=== PATIENT | female | born 1960 | race African-American/Black ===

== ENCOUNTER → 2020-08-06 08:28 | Outpatient (BNVA) | payer MEDICARE, MEDICAID, SELFPAY | PROVIDERS: PCP Internal Medicine Geriatric Medicine; Visit Provider Dietitian, Registered | DX: Z76.89 Persons encountering health services in other specified circumstances (principal) ==

== ENCOUNTER → 2020-10-07 08:32 | Outpatient (BNVA) | payer MEDICARE, MEDICAID, SELFPAY | PROVIDERS: PCP Internal Medicine Geriatric Medicine; Visit Provider Dietitian, Registered | DX: Z76.89 Persons encountering health services in other specified circumstances (principal) ==

== ENCOUNTER 2020-11-11 10:14 | Outpatient (REF) | payer MEDICARE, MEDICAID, SELFPAY ==
--- NOTE | 2020-11-11 | CT_ITS ---
EXAMINATION: CT CHEST WITHOUT CONTRAST CLINICAL INFORMATION: Pulmonary nodule. COMPARISON: None TECHNIQUE: Multidetector volumetric CT imaging of the chest was done. Axial MIP volume rendering provided. Sagittal and coronal reformatted images were obtained. This CT examination was performed using dose optimization techniques as appropriate, variously including the following: *Automated exposure control *Adjustment of mA and/or kV according to patient size (this includes techniques or standardized protocols for targeted exams where dose is matched to indication/reason for exam; i.e. 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 LUNGS: There is bilateral apical pleural thickening and apical scarring. There is a 5 mm left apical ill-defined density left upper lobe axial image 52/5, ill-defined right upper lobe 4 mm nodule axial image 52/5, 3 mm nodule left upper lobe axial image 123/5, 3 mm nodule right lower lobe superior segment image 171/5, 3 mm and 1 mm nodule right upper lobe axial image 184/5, 2 mm nodule right lower lobe axial image 206/5, 5 mm nodule left lower lobe axial image 215/5 and 4 mm nodule right CP angle image 340/5. Focal atelectatic changes seen left lower lobe lateral basal segment and right middle lobe. MEDIASTINUM: The thyroid lobes are symmetrical and normal. The central trachea and the bronchi are widely patent. Heart size and the great vessels are normal caliber. The central trachea and bronchi are widely patent. No pericardial effusion seen. There is mitral valve calcification. PLEURA: There is no pleural effusion. No pleural mass or thickening. AXILLA: No lymphadenopathy. UPPER ABDOMEN: Visualized liver, spleen, pancreas and bilateral adrenal glands are unremarkable. The gallbladder has been surgically removed. There is gastric reduction surgery changes. OSSEOUS STRUCTURES: No lytic or sclerotic process seen. There is mild ventral spondylosis. CT/CT chest wo con IMPRESSION: Bilateral pulmonary nodules as described above. Recommend one year followup.
== END 2020-11-11 10:15 | disposition home or self-care (01) ==
LOC: HO.CT 10:14
PROVIDERS: PCP Internal Medicine Geriatric Medicine; Visit Provider Internal Medicine Pulmonary Disease
DX: R91.8 Other nonspecific abnormal finding of lung field (principal)
CPT/HCPCS: 71250

== ENCOUNTER → 2020-11-17 11:05 | Outpatient (BNVA) | payer MEDICARE, MEDICAID, SELFPAY | PROVIDERS: PCP Internal Medicine Geriatric Medicine; Visit Provider Internal Medicine Pulmonary Disease | DX: J44.9 Chronic obstructive pulmonary disease, unspecified (principal); R91.8 Other nonspecific abnormal finding of lung field | CPT/HCPCS: 99212 ==

== ENCOUNTER → 2020-11-18 08:20 | Outpatient (BNVA) | payer MEDICARE, MEDICAID, SELFPAY | PROVIDERS: PCP Internal Medicine Geriatric Medicine; Referring Provider Internal Medicine Geriatric Medicine; Visit Provider Physician Assistant | DX: Z90.3 Acquired absence of stomach [part of] (principal) | CPT/HCPCS: 99212 ==

== ENCOUNTER → 2020-12-09 08:23 | Outpatient (BNVA) | payer MEDICARE, MEDICAID, SELFPAY | PROVIDERS: PCP Internal Medicine Geriatric Medicine; Visit Provider Physician Assistant | DX: E66.9 Obesity, unspecified (principal); Z90.3 Acquired absence of stomach [part of] | CPT/HCPCS: Q3014 ==

== ENCOUNTER 2021-01-07 10:57 | Outpatient (REF) | payer MEDICARE, MEDICAID, SELFPAY ==
--- NOTE | ~2021-01-07 | XR_ITS ---
EXAMINATION: CERVICAL SPINE AND SOFT TISSUES OF THE NECK X-RAY CLINICAL INFORMATION: Pain. History of trauma. COMPARISON: Cervical spine CT scan May 2019 TECHNIQUE: AP and lateral view of the soft tissues of the cervical spine. Lateral swimmer's AP Fuchs and odontoid views of the cervical spine FINDINGS: There is curvature of the lower cervical and upper thoracic spine to the left. Bone alignment is otherwise normal. No fracture or dislocation is seen. There is multilevel degenerative spondylosis and degenerative disc disease at C2-C3, C4-C5, C5-C6, C6-C7 and C7-T1. Prevertebral soft tissues are normal. No abnormal air collection or radiopaque soft tissue foreign body is seen. Visualized lung apices are clear. XR/XR cervical spine 3V IMPRESSION: Multilevel degenerative changes.
--- NOTE | ~2021-01-07 | XR_ITS ---
EXAMINATION: CERVICAL SPINE AND SOFT TISSUES OF THE NECK X-RAY CLINICAL INFORMATION: Pain. History of trauma. COMPARISON: Cervical spine CT scan May 2019 TECHNIQUE: AP and lateral view of the soft tissues of the cervical spine. Lateral swimmer's AP Fuchs and odontoid views of the cervical spine FINDINGS: There is curvature of the lower cervical and upper thoracic spine to the left. Bone alignment is otherwise normal. No fracture or dislocation is seen. There is multilevel degenerative spondylosis and degenerative disc disease at C2-C3, C4-C5, C5-C6, C6-C7 and C7-T1. Prevertebral soft tissues are normal. No abnormal air collection or radiopaque soft tissue foreign body is seen. Visualized lung apices are clear. XR/XR soft tissue neck IMPRESSION: Multilevel degenerative changes.
== END 2021-01-07 10:58 | disposition home or self-care (01) ==
LOC: HO.XRAY 10:57
PROVIDERS: Visit Provider Registered Nurse
DX: G44.311 Acute post-traumatic headache, intractable (principal); M54.2 Cervicalgia; S09.90XA Unspecified injury of head, initial encounter; W19.XXXA Unspecified fall, initial encounter; Y93.9 Activity, unspecified; Y92.009 Unspecified place in unspecified non-institutional (private) residence as the place of occurrence of the external cause; Y99.9 Unspecified external cause status
CPT/HCPCS: 70360; 72040

== ENCOUNTER 2021-01-28 10:10 | Outpatient (REF) | payer MEDICARE, MEDICAID, SELFPAY ==
--- NOTE | ~2021-01-28 | MR_ITS ---
EXAMINATION: MR BRAIN WITHOUT AND WITH CONTRAST CLINICAL INFORMATION: Demyelinating disease. COMPARISON: CT head from 08/02/2020. TECHNIQUE: MRI of the brain was obtained using routine sequences without and following the administration of 9 mL of Gadavist intravenous contrast. FINDINGS: Exam is mildly motion degraded. No focal restricted diffusion is demonstrated to suggest acute or subacute cerebral ischemia. No evidence of acute or chronic hemorrhagic products on heme-sensitive imaging. Nonspecific scattered periventricular and deep white matter T2 FLAIR hyperintensities. Encephalomalacia within the superior right cerebellar hemisphere. The ventricles are normal in morphology and size. No abnormal mass effect. No midline shift. Normal appearance of the pituitary gland. No abnormalities of the posterior fossa with normal appearance of the brainstem and cerebellum. Normal positioning of the cerebellar tonsils. Normal arterial and venous vascular flow voids are present. No abnormal contrast enhancement. Normal, homogeneous marrow signal. Mild mucosal thickening of the paranasal sinuses. Rightward nasal septal deviation. No signal abnormalities within the mastoids. Right-sided lens extraction. MR/MR head/brain wo/w con IMPRESSION: 1. No acute intracranial abnormalities. Abnormal intracranial enhancement. 2. Nonspecific, predominantly supratentorial mild to moderate white matter changes. Chronic encephalomalacia of the superior right cerebellar hemisphere.
[2021-01-28 11:03] LABS: Blood Urea Nitrogen 25 mg/dL (9-16); Estimated Glomerular Filt Rate > 60
== END 2021-01-28 10:11 | disposition home or self-care (01) ==
LOC: HO.MRI 10:10
PROVIDERS: Visit Provider Psychiatry & Neurology Neurology
DX: G37.9 Demyelinating disease of central nervous system, unspecified (principal)
CPT/HCPCS: 36415; 70553; 82565; 84520; A9585

== ENCOUNTER → 2021-02-09 10:04 | Outpatient (BNVA) | payer MEDICARE, MEDICAID, SELFPAY | PROVIDERS: Visit Provider Surgery | DX: E66.01 Morbid (severe) obesity due to excess calories (principal); Z68.41 Body mass index [BMI] 40.0-44.9, adult | CPT/HCPCS: 99212 ==

== ENCOUNTER → 2021-04-27 10:23 | Outpatient (BNVA) | payer MEDICARE, MEDICAID, SELFPAY | PROVIDERS: PCP Internal Medicine Geriatric Medicine; Visit Provider Surgery | DX: E66.9 Obesity, unspecified (principal); Z68.37 Body mass index [BMI] 37.0-37.9, adult | CPT/HCPCS: 99212 ==

== ENCOUNTER → 2021-05-12 09:56 | Outpatient (BNVA) | payer MEDICARE, MEDICAID, SELFPAY | PROVIDERS: PCP Internal Medicine Geriatric Medicine; Visit Provider Internal Medicine Pulmonary Disease | DX: J44.9 Chronic obstructive pulmonary disease, unspecified (principal); R91.8 Other nonspecific abnormal finding of lung field | CPT/HCPCS: 99212 ==

== ENCOUNTER → 2021-05-25 10:38 | Outpatient (BNVA) | payer MEDICARE, MEDICAID, SELFPAY | PROVIDERS: PCP Internal Medicine Geriatric Medicine; Referring Provider Internal Medicine Geriatric Medicine; Visit Provider Surgery | DX: E66.9 Obesity, unspecified (principal); Z68.36 Body mass index [BMI] 36.0-36.9, adult | CPT/HCPCS: 99212 ==

== ENCOUNTER 2021-08-25 10:34 | Outpatient (REF) | payer MEDICARE, MEDICAID, SELFPAY ==
--- NOTE | ~2021-08-25 | XR_ITS ---
EXAMINATION: XR THORACIC SPINE CLINICAL INFORMATION: Back pain COMPARISON: None TECHNIQUE: 3 views of the thoracic spine were obtained. FINDINGS: Bone alignment is normal. No fracture or dislocation is seen. There is multilevel degenerative spondylosis and disc space narrowing, greatest in the mid thoracic spine. Paraspinal soft tissues are normal. XR/XR thoracic spine 3V IMPRESSION: Multilevel degenerative changes, greatest in the mid thoracic spine.
--- NOTE | ~2021-08-25 | XR_ITS ---
EXAMINATION: XR LUMBOSACRAL SPINE WITH OBLIQUES CLINICAL INFORMATION: Back pain and left-sided sciatica COMPARISON: None TECHNIQUE: AP, both oblique, and lateral views of the lumbar spine. Lateral view of the lumbosacral junction. FINDINGS: There may be a transitional vertebral body segment or 6 lumbar-type vertebral bodies. For the purposes of this dictation, the transitional segment is designated inferiorly with the top of the iliac crest at the L4-L5 disc space level. There is grade 1 1 cm anterior subluxation of L5 with respect to the transitional segment. Bone alignment is otherwise normal. No fracture or dislocation is seen. There is mild degenerative disc disease at L1-L2 and the transitional segment S1 articulation. There is lower lumbar spine facet arthritis. There is evidence of atherosclerotic disease. XR/XR lumbar spine 4V min IMPRESSION: Probable transitional vertebral body segment or 6 lumbar-type bodies are grade 1 anterior subluxation of L5 with respect to the transitional segment. Lower lumbar spine facet arthritis.
== END 2021-08-25 10:35 | disposition home or self-care (01) ==
LOC: HO.XRAY 10:34
PROVIDERS: PCP Internal Medicine Geriatric Medicine; Visit Provider Internal Medicine Geriatric Medicine
DX: M54.42 Lumbago with sciatica, left side (principal)
CPT/HCPCS: 72072; 72110

== ENCOUNTER 2021-09-01 10:17 | Emergency (ER) | payer MEDICARE, MEDICAID, SELFPAY ==
--- NOTE | ~2021-09-01 | CT_ITS ---
EXAMINATION: CT ABDOMEN AND PELVIS WITHOUT CONTRAST CLINICAL INFORMATION: Abdominal pain. History of sleeve gastrectomy COMPARISON: None TECHNIQUE: Multidetector volumetric imaging was performed from the superior aspect of the liver through the pubic symphysis. Sagittal and coronal reformatted images were obtained on the technologist's workstation. This CT examination was performed using dose optimization techniques as appropriate, variously including the following: *Automated exposure control *Adjustment of mA and/or kV according to patient size (this includes techniques or standardized protocols for targeted exams where dose is matched to indication/reason for exam; i.e. extremities or head) *Use of iterative reconstruction technique DLP: 577.0 mGy-cm FINDINGS: LUNG BASES: The visualized lung bases are unremarkable. Mitral valve annular calcification is present. LIVER, GALLBLADDER, AND BILIARY TREE: The liver is normal in size, shape, and attenuation. No focal hepatic lesion or biliary ductal dilatation is present. No gallbladder is surgically absent. PANCREAS: Approximately 1 cm maximum dimension circumscribed hypodensity is seen near the posterior inferior part of the proximal part of the body of the pancreas (166:4) with Hounsfield value of -8, likely representing a cyst, indeterminate etiology. No evidence of any peripancreatic inflammatory changes, pancreatic ductal dilatation or calcification present. SPLEEN: Unremarkable. ADRENAL GLANDS: Unremarkable. KIDNEYS AND URETERS: The kidneys are normal in size, shape, and attenuation. No hydronephrosis, hydroureter, or calculi seen. No perinephric stranding. BLADDER: Unremarkable. GASTROINTESTINAL TRACT: The small and large bowel are unremarkable. The appendix is nonvisualized. Post surgical changes of sleeve gastrectomy is noted. Small sliding hiatal hernia is noted. ABDOMINAL WALL: Periumbilical fat only containing ventral hernia is noted to the right of the midline. LYMPH NODES: Normal. VASCULAR: Unremarkable. PELVIC VISCERA: No evidence of any pelvic mass is noted. Linear radiopaque densities along the distribution of the tube, consistent with likely tubal ligation/intratubal occlusion device related changes present. No evidence of any free fluid and/or free air. A few phleboliths are seen in the pelvis. OSSEOUS STRUCTURES: Moderate to severe diffuse osteopenia, grade 1 anterolisthesis of L4 over L5 and significant facet degenerative arthritic changes are noted at lower lumbar spine. CT/CT abdomen pelvis wo con IMPRESSION: 1. No CT evidence of any acute intra-abdominal and/or intrapelvic pathology is present. 2. Incidental note is made 1 cm circumscribed hypodense cystic lesion at the posterior inferior aspect of the proximal part of the body of the pancreas, indeterminate etiology. 3. Postsurgical changes of sleeve gastrectomy and small sliding hiatal hernia. Surgically absent gallbladder. 4. Periumbilical fat only containing ventral hernia. 5. Moderate to severe diffuse osteopenia, grade 1 anterolisthesis of L4 over L5 and significant degenerative arthritic changes at lower lumbar spine.
[2021-09-01 10:32] VITALS: BP 131/68; PULSE 92; RESP 16; TEMP 37.2; O2SAT 95; BMI 33.1
--- NOTE | 2021-09-01 10:51 | ED_ITS ---
HPI - Abdominal Pain General Chief Complaint: Abdominal Pain Stated Complaint: abd pain Time Seen by Provider: 09/01/21 10:48 Source: patient Mode of arrival: ambulatory Limitations: no limitations History of Present Illness HPI narrative: 61-year-old female came in for evaluation of abdominal pain. Pain started 5 days ago, pain is localized and the mid abdomen, described as constant hunger pain, moderate and 5 lb 10, nothing relieves the pain, no aggravating factor, no other associated symptoms, patient feels hungry but afraid to eat. Past surgical history is cholecystectomy, gastric bypass done at [facility]. Related Data Home Medications Medication Instructions Recorded Confirmed atorvastatin 10 mg tablet 10 mg PO DAILY 08/05/20 05/25/21 losartan 50 mg-hydrochlorothiazide 1 tab PO DAILY 08/05/20 05/25/21 12.5 mg tablet montelukast 10 mg tablet 10 mg PO DAILY 08/05/20 05/25/21 pregabalin 225 mg capsule (Lyrica) 225 mg PO DAILY 08/05/20 05/25/21 sumatriptan 85 mg-naproxen 500 mg 1 tab PO Q2-4H PRN 08/05/20 05/25/21 tablet venlafaxine 150 mg 150 mg PO DAILY 08/05/20 05/25/21 capsule,extended release 24 hr zolpidem 10 mg tablet 10 mg PO BEDTIME PRN 08/05/20 05/25/21 zsnrtlvw-jzwcjuhr-rjzy 45 mg-folic cap PO 11/18/20 05/25/21 acid 800 mcg-vit K 120 mcg capsule (Bariatric Multivitamins) clonazepam 0.5 mg tablet 0.5 mg PO BEDTIME 05/25/21 05/25/21 Previous Rx's Medication Instructions Recorded umeclidinium 62.5 mcg/actuation 1 inh INHALATION DAILY #30 ea 01/14/21 blister powder for inhalation (Incruse Ellipta) phentermine 37.5 mg capsule 37.5 mg PO DAILY #30 cap 04/27/21 Breo Ellipta 100 mcg-25 mcg/dose 1 inh INHALATION DAILY #60 ea NS 05/17/21 powder for inhalation (fluticasone furoate-vilanterol) Allergies Allergy/AdvReac Type Severity Reaction Status Date / Time alendronate sodium Allergy Mild HIVES Verified 05/25/21 11:08 [From FOSAMAX] atorvastatin [Lipitor] Allergy Unknown Hives Verified 05/25/21 11:08 naproxen [NAPROXEN] Allergy Unknown UNK Verified 05/25/21 11:08 Review of Systems Review of Systems All other systems are reviewed and are negative Constitutional: Reports as per HPI and Reports no additional constitutional complaints Eyes: Reports as per HPI and Reports no additional eye complaints Reports system reviewed and no additional complaints, except as documented Cardiovascular: Reports as per HPI and Reports no additional cardiovascular complaints Respiratory: Reports as per HPI and Reports no additional respiratory complaints Gastrointestinal: Reports as per HPI and Reports no additional gastrointestinal complaints Genitourinary: Reports no additional female genitourinary complaints Musculoskeletal: Reports no additional musculoskeletal complaints Skin/Breast: Reports system reviewed and no additional complaints, except as docu Psychiatric: Reports no additional psychiatric complaints Endocrine: Reports no additional endocrine complaints Hematologic/Lymphatic: Reports no additional hematologic/lymphatic complaints Allergic/Immunologic: Reports no additional allergic/immunologic complaints Reports system reviewed and no additional complaints, except as documented and Reports Abnormal speech present Physical Exam Vital Signs: Vital Signs: Last Vital Signs Temp 98.9 F 09/01/21 10:32 Pulse 92 09/01/21 10:32 Resp 16 09/01/21 10:32 BP 131/68 09/01/21 10:32 Pulse Ox 95 09/01/21 10:32 Body Mass Index 33.1 Vital signs have been reviewed as appeared to be correct. Blood pressure normal. Heart rate normal. Respiration rate normal. Temperature normal. Oxygen saturation normal. Appearance: Alert. Oriented X3. No acute distress. Head: Normal external exam. Normocephalic. Atraumatic. No Lizama signs noted. No raccoon eyes noted Eyes: PERRLA. EOMI. Conjunctiva and sclera normal. Eyelids normal. ENT: TM's Normal. Pharynx normal. Uvula midline. Moist mucous membranes. No trismus noted. No drooling noted. No muffled voice noted. Neck: Normal inspection. Neck supple. FROM. No adenopathy. Thyroid Normal. No meningeal signs. No neck mass noted. CVS: Normal heart rate and rhythm. Heart sound normal. No murmurs noted. Pulses normal throughout. Respiratory: No respiratory distress. Painless inspiration. Breath sounds normal. No wheezes/rales/rhonchi noted. Chest nontender. No accessory muscle usage noted or decreased air movement noted. Abdomen: Soft , obese, mild tenderness in lower abdomen both sides, no rebound tenderness, no guarding. Bowel sounds normal in all 4 quadrants. No distention noted. No organomegaly noted. No visible injury noted. Back: No CVA tenderness. Full range of motion noted. Skin: Skin warm and dry. Normal skin color. Normal skin turgor. No rashes/lesions/lacerations noted. Extremities: No lower extremity edema. Extremities exhibit normal range of motion. Extremities nontender. Neuro: Oriented X 3. Cranial nerve exam: II-XII are grossly intact No motor deficit. No sensory deficit. Reflexes normal. Course Course Course Narrative: Assessment and plan. 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 Reevaluation(s) Reevaluation #1: I called the patient at her cell number [phone] CT result was discussed with the patient and in need of follow-up on the pancreatic mass found on the CT. Patient fully understood my instruction and she will call her primary doctor for follow-up and outpatient ultrasound of the pancreas. Time: 15:19 MDM - Abdominal Pain MDM Narrative Medical decision making narrative: 1. No CT evidence of any acute intra- abdominal and/or intrapelvic pathology is present. 2. Incidental note is made 1 cm circumscribed hypodense cystic lesion at the posterior inferior aspect of the proximal part of the body of the pancreas, indeterminate etiology. 3. Postsurgical changes of sleeve gastrectomy and small sliding hiatal hernia. Surgically absent gallbladder. 4. Periumbilical fat only containing ventral hernia. 5. Moderate to severe diffuse osteopenia, grade 1 anterolisthesis of L4 over L5 and significant degenerative arthritic changes at lower lumbar spine. Medical Records Attestation: I reviewed the patient's medical records. Lab Data Attestation: I reviewed the patient's lab results. Result diagrams: 09/01/21 10:55 09/01/21 10:55 Labs: Lab Results 09/01/21 09/01/21 09/01/21 Range/Units 10:55 10:55 10:55 WBC 6.3 (4.8-10.8) X10*3/uL RBC 3.97 L (4.20-5.50) X10*6/uL Hgb 12.7 (12.0-16.0) g/dl Hct 37.1 (37-47) % MCV 93.5 (80-98) fL MCH 32.0 (27.0-33.0) pg MCHC 34.2 (31.0-35.0) g/dl RDW 13.3 (11.0-16.0) % Plt Count 228 (160-400) X10*3/uL MPV 10.2 (9.4-12.3) fL Immature Gran % (Auto) 0.3 (0.0-0.4) % Neut % (Auto) 56.6 (45-73) % Lymph % (Auto) 34.1 (20-40) % Norton % (Auto) 7.1 (2-11) % Eos % (Auto) 1.3 (0-4) % Baso % (Auto) 0.6 (0-2) % Lymph # (Auto) 2.2 (1.2-4.9) X10*3/uL Norton # (Auto) 0.5 (0.1-1.2) X10*3/uL Eos # (Auto) 0.1 (0.0-0.4) X10*3/uL Baso # (Auto) 0.0 (0.0-0.2) X10*3/uL Abs Immat Gran (auto) 0.02 (0.00-0.03) X10*3/uL Absolute Neuts (auto) 3.6 (2.0-8.3) X10*3/uL Absolute Nucleated RBC 0.000 (0.0-0.012) X10*3/uL Nucleated RBC % (auto) 0.0 (0.0-0.2) /100WBC Sodium 141 (135-145) mmol/L Potassium 3.2 L (3.3-5.1) mmol/L Chloride 102 (96-108) mmol/L Carbon Dioxide 26 (22-29) mmol/L Anion Gap 16 (12-20) BUN 13 (9-16) mg/dL Creatinine 0.79 (0.5-1.4) mg/dL Estim Creat Clear Calc 64.9 Estimated GFR > 60 Random Glucose 116 H (60-115) mg/dL Calcium 9.5 (8.4-10.2) mg/dL Total Bilirubin 0.6 (0.0-1.0) mg/dL Direct Bilirubin 0.2 (0.0-0.5) mg/dL AST 44 H (5-31) U/L ALT 31 (0-31) U/L Alkaline Phosphatase 68 (39-117) U/L Total Protein 7.7 (6.5-8.0) g/dL Albumin 4.7 (3.5-5.0) g/dL Lipase 17 (8-78) U/L Urine Color YELLOW Urine Appearance HAZY Urine pH 5.5 (5.0-8.0) Ur Specific [place] >= 1.030 H (1.005-1.025) Urine Protein 1+ H (NEG-TRACE) MG/DL Urine Glucose (UA) NEG (NEG) MG/DL Urine Ketones 15 (NEG) MG/DL Urine Blood NEG (NEG) Urine Nitrite POS H (NEG) Ur Leukocyte Esterase NEG (NEG) Urine RBC 0-2 (0) /HPF Urine WBC 5-9 H (0-4) /HPF Ur Squamous Epith Cells TRACE /LPF Urine Bacteria 4+ /LPF Discharge Plan Discharge Clinical Impression: Abdominal pain, History of sleeve gastrectomy Patient Disposition: Home, Self-Care Instructions: Abdominal Pain (ED) Prescriptions: No Action Incruse Ellipta 62.5 mcg/actuation blister with device 1 inh inhalation DAILY Qty: 30 RF: 2 Breo Ellipta 100-25 mcg/dose blister with device 1 inh inhalation DAILY Qty: 60 RF: 3 venlafaxine 150 mg capsule,extended release 24hr 150 mg PO DAILY RF: 0 atorvastatin 10 mg tablet 10 mg PO DAILY RF: 0 losartan-hydrochlorothiazide 50-12.5 mg tablet 1 tab PO DAILY RF: 0 montelukast 10 mg tablet 10 mg PO DAILY RF: 0 pregabalin [Lyrica] 225 mg capsule 225 mg PO DAILY RF: 0 zolpidem 10 mg tablet 10 mg PO BEDTIME PRNRF: 0 sumatriptan-naproxen 85-500 mg tablet 1 tab PO Q2-4H PRNRF: 0 Bariatric Multivitamins 45 mg iron- 800 mcg-120 mcg capsule PO RF: 0 phentermine 37.5 mg capsule 37.5 mg PO DAILY Qty: 30 RF: 0 clonazepam 0.5 mg tablet 0.5 mg PO BEDTIME RF: 0 Referrals: Janeth Bui MD [Physician] - 2 days Name,MD Boo [Primary Care Provider] - 2 days Interventions: ED Discharge Assessment Last Done: 09/01/21 13:38 Discharge Date/Time: 09/01/21 13:38 PMFSH Past Medical History Medical History Arthritis Asthma Depression Fibromyalgia Insomnia Migraines Morbid obesity due to excess calories Personal history of solitary pulmonary nodule Sleep apnea Type 2 diabetes mellitus Surgical History History of bilateral carpal tunnel release History of foot surgery History of right cataract surgery History of sleeve gastrectomy Hx laparoscopic cholecystectomy Family History Family History Father No problems noted. Mother Diabetes Brother No problems noted. Brother No problems noted. Brother No problems noted. Sister No problems noted. Sister No problems noted. Sister No problems noted. Daughter No problems noted. Social History Social History Alcohol intake: never Patient Tobacco Use Status: Former Tobacco user Quit Date: 2009 Substance Use Type: Marijuana Advance Directives: No Advance Directives Information Provided: No Patient : No
[2021-09-01] MEDS: Magnesium Hydrox/Alum Hydrox 30 ML ORAL.SUSP PO (11:04)
[2021-09-01] MEDS: 0.9 % Sodium Chloride 1,000 ML 999 ML IVCONT (11:04)
[2021-09-01] MEDS: Famotidine/PF 20 MG/2 ML VIAL IVPUSH (11:04)
[2021-09-01 11:05] LABS: MANUAL DIFF FLAG NO
[2021-09-01 11:08] LABS: Appearance Urine HAZY; Color Urine YELLOW; Glucose Urine UA NEG (NEG); Leukocyte Esterase Urine NEG (NEG); Nitrite Urine POS (NEG); PH 5.5 (5.0-8.0); Specific Gravity - Urine >= 1.030 (1.005-1.025); UACC Culture Trigger YES; Urine Blood NEG (NEG); Urine Ketones 15 MG/DL (NEG); Urine Protein 1+ MG/DL (NEG-TRACE)
[2021-09-01 11:09] LABS: Basophils Percent Auto 0.6 % (0-2); Eosinophils Absolute Auto 0.1 X10*3/uL (0.0-0.4); Eosinophils Percent Auto 1.3 % (0-4); Hematocrit 37.1 % (37-47); Hemoglobin 12.7 g/dl (12.0-16.0); Imm Gran Abs Auto 0.02 X10*3/uL (0.00-0.03); Imm Gran Pct Auto 0.3 % (0.0-0.4); Lymphocytes Absolute Auto 2.2 X10*3/uL (1.2-4.9); Lymphocytes Percent Auto 34.1 % (20-40); Mean Corpuscular HGB Conc 34.2 g/dl (31.0-35.0); Mean Corpuscular Volume 93.5 fL (80-98); Mean Platelet Volume 10.2 fL (9.4-12.3); Monocytes Absolute Auto 0.5 X10*3/uL (0.1-1.2); Monocytes Percent Auto 7.1 % (2-11); Neutrophils Absolute Auto 3.6 X10*3/uL (2.0-8.3); Neutrophils Percent Auto 56.6 % (45-73); Platelet Count 228 X10*3/uL (160-400); Red Blood Count 3.97 X10*6/uL (4.20-5.50); Red Cell Distribution Width 13.3 % (11.0-16.0); White Blood Count 6.3 X10*3/uL (4.8-10.8)
[2021-09-01] MEDS: Acetaminophen 325 MG TABLET 650 MG PO (11:29)
--- NOTE | 2021-09-01 11:31 | PC.NURSE ---
pt c/o headache. tylenol given at this time.
[2021-09-01 11:36] LABS: Alanine Aminotransferase 31 U/L (0-31); Albumin Level 4.7 g/dL (3.5-5.0); Alkaline Phosphatase 68 U/L (39-117); Anion Gap 16 (12-20); Aspartate Amino Transferase 44 U/L (5-31); Bilirubin Direct 0.2 mg/dL (0.0-0.5); Bilirubin Total 0.6 mg/dL (0.0-1.0); Blood Urea Nitrogen 13 mg/dL (9-16); Calcium 9.5 mg/dL (8.4-10.2); Carbon Dioxide 26 mmol/L (22-29); Chloride 102 mmol/L (96-108); Creatinine Clr Calc Pharmacy 64.9; Estimated Glomerular Filt Rate > 60; Glucose Random 116 mg/dL (60-115); Lipase 17 U/L (8-78); Potassium 3.2 mmol/L (3.3-5.1); Sodium 141 mmol/L (135-145); Total Protein 7.7 g/dL (6.5-8.0)
[2021-09-01 12:02] LABS: RBC Urine 0-2 /HPF (0); Squamous Epithelial Cell Urine TRACE /LPF
[2021-09-01 12:03] LABS: Bacteria Urine 4+ /LPF
[2021-09-01] MEDS: Potassium Chloride ER 20 MEQ TAB.ER.PRT 40 MEQ PO (13:29)
== END 2021-09-01 13:38 | disposition home or self-care (01) ==
PROVIDERS: Emergency Provider Emergency Medicine; PCP Internal Medicine Geriatric Medicine
DX: R10.9 Unspecified abdominal pain (principal); N39.0 Urinary tract infection, site not specified; B96.20 Unspecified Escherichia coli [E. coli] as the cause of diseases classified elsewhere; K86.89 Other specified diseases of pancreas; E11.9 Type 2 diabetes mellitus without complications; J45.909 Unspecified asthma, uncomplicated; Z98.84 Bariatric surgery status; Z90.49 Acquired absence of other specified parts of digestive tract
CPT/HCPCS: 36415; 74176; 80048; 80076; 81001; 83690; 85025; 87086; 87088; 87186; 96361; 96374; 96375; 99284; 99285

== ENCOUNTER → 2021-09-09 08:02 | Outpatient (BNVA) | payer MEDICARE, MEDICAID, SELFPAY | PROVIDERS: PCP Internal Medicine Geriatric Medicine; Visit Provider Physician Assistant Surgical | DX: Z13.89 Encounter for screening for other disorder (principal) | CPT/HCPCS: Q3014 ==

== ENCOUNTER 2021-09-17 10:30 | Outpatient (REF) | payer MEDICARE, MEDICAID, SELFPAY ==
--- NOTE | ~2021-09-17 | MR_ITS ---
EXAMINATION: MR ABDOMEN WITHOUT AND WITH CONTRAST CLINICAL INFORMATION: Pancreatic cyst. COMPARISON: Previous CT of the abdomen and pelvis August 2021. TECHNIQUE: MR abdomen was performed without and with use of 7.5 mL intravenous Gadavist gadolinium contrast. Postcontrast images are performed in multiphase dynamic sequences. Imaging was performed in 3 planes. FINDINGS: LUNG BASES: The visualized lung bases are unremarkable. LIVER, GALLBLADDER, AND BILIARY TREE: The liver is normal in size, smooth in contour, and normal in signal. No focal hepatic lesion or biliary ductal dilatation is present. The gallbladder has been removed. PANCREAS: There is a 6 x 10 mm simple-appearing cyst seen in the neck of the pancreas, axial T2 image 13 series 4 and postcontrast images 26, 29 and 30. This abuts the main pancreatic duct. The main pancreatic duct does not appear dilated. No solid component, abnormal enhancement or septation is seen. The pancreas is otherwise normal in signal. SPLEEN: Normal. ADRENAL GLANDS: Normal. KIDNEYS AND URETERS: The kidneys are normal in size, shape, and enhance symmetrically. No hydronephrosis. There is a small cyst in the lower pole of the right kidney. GASTROINTESTINAL TRACT: There are postsurgical changes to the stomach. No bowel obstruction. No ascites or fluid collection. ABDOMINAL WALL: There is question of previous umbilical hernia repair. LYMPH NODES: No lymphadenopathy. VASCULAR: Unremarkable. OSSEOUS STRUCTURES: There is degenerative disc disease of the lower lumbar spine. There is mild anterior subluxation of L4 with respect L5 MR/MR abdomen wo/w con IMPRESSION: 6 x 10 mm simple-appearing cyst in the neck of the pancreas. This abuts the main pancreatic duct which is normal in caliber. CT or MR imaging follow-up in one year is recommended.
== END 2021-09-17 10:31 | disposition home or self-care (01) ==
LOC: HO.MRI 10:30
PROVIDERS: Visit Provider Internal Medicine Geriatric Medicine
DX: K86.2 Cyst of pancreas (principal)
CPT/HCPCS: 74183; A9585

== ENCOUNTER 2021-11-11 15:59 | Outpatient (REF) | payer MEDICARE, MEDICAID, SELFPAY ==
--- NOTE | ~2021-11-11 | CT_ITS ---
EXAMINATION: CT CHEST WITHOUT CONTRAST CLINICAL INFORMATION: Other nonspecific abnormal finding of lung field. COMPARISON: CT chest 11/11/2020. TECHNIQUE: Multidetector volumetric CT imaging of the chest was done. Axial MIP volume rendering provided. Sagittal and coronal reformatted images were obtained. This CT examination was performed using dose optimization techniques as appropriate, variously including the following: *Automated exposure control *Adjustment of mA and/or kV according to patient size (this includes techniques or standardized protocols for targeted exams where dose is matched to indication/reason for exam; i.e. extremities or head) *Use of iterative reconstruction technique DLP: 149 mGy-cm FINDINGS: HEALTH BENEFITS SPECIALIST: Well-inflated lungs. LUNGS: The lungs are well expanded and clear of acute pneumonic consolidation. There is a punctate 2 mm calcification in the right lower lobe (359/7) and right middle lobe (268/7), likely calcified granulomata. There is a 5 mm noncalcified nodule left lower lobe (axial image 283/7). Ill-defined linear subpleural density is seen in the right upper lobe (axial image 108/7). There is bilateral apical parenchymal scarring and apical pleural thickening with a small subpleural 5 mm ill-defined density in the right lung apex. MEDIASTINUM: The thyroid lobes are symmetric and normal. The central trachea and the bronchi are widely patent. The heart size and the great vessels are normal caliber. No pericardial effusion is seen. No abnormal-sized mediastinal adenopathy. There is no evidence of aneurysm. PLEURA: There is no pleural effusion. No pleural mass or thickening. AXILLAE: Small shotty lymph nodes are seen in the bilateral axillae and chest wall. UPPER ABDOMEN: Visualized liver, spleen and pancreas appears unremarkable. Previous gastric sleeve surgery and cholecystectomy changes are noted. OSSEOUS STRUCTURES: Mild spondylosis seen throughout the dorsal spine. No lytic process. CT/CT chest wo con IMPRESSION: Small calcified and noncalcified small nodules, stable. Larger 5 mm nodule left lower lobe is stabilized as well. Ill-defined bilateral upper lobe/apical densities have resolved. No new nodules seen. No abnormal lymphadenopathy.
== END 2021-11-11 16:00 | disposition home or self-care (01) ==
LOC: HO.CT 15:59
PROVIDERS: Visit Provider Internal Medicine Pulmonary Disease
DX: R91.8 Other nonspecific abnormal finding of lung field (principal)
CPT/HCPCS: 71250

== ENCOUNTER → 2021-11-15 09:37 | Outpatient (BNVA) | payer MEDICARE, MEDICAID, SELFPAY | PROVIDERS: PCP Internal Medicine Geriatric Medicine; Visit Provider Internal Medicine Pulmonary Disease | DX: Z13.89 Encounter for screening for other disorder (principal) | CPT/HCPCS: 99212 ==

== ENCOUNTER 2021-11-15 10:46 | Outpatient (REF) | payer MEDICARE, MEDICAID, SELFPAY ==
--- NOTE | ~2021-11-15 | XR_ITS ---
EXAMINATION: XR CERVICAL SPINE XR SOFT TISSUE OF THE NECK CLINICAL INFORMATION: Neck pain COMPARISON: Previous cervical spine x-ray January 2021 TECHNIQUE: 5 views of the cervical spine including bilateral oblique views. Single lateral view of the soft tissues of the cervical spine. FINDINGS: Bone alignment is normal. No fracture or dislocation is seen. There is degenerative spondylosis from C4-C5 to C6-C7. There is disc space narrowing at C6-C7. There is multilevel right-sided neural foraminal narrowing from bony osteophyte. Exam may be slightly limited due to patient positioning. There is evidence of right-sided neural foraminal narrowing at C2-C3, C3-C4 and C4-C5 and C6-C7. There is left-sided neural foraminal narrowing from bony osteophyte at C3-C4, C4-C5 and C6-C7. Prevertebral soft tissues are normal. No abnormal air collection or soft tissue foreign body is seen. The epiglottis is normal. No calcifications are seen. The visualized lung apices are clear. XR/XR soft tissue neck IMPRESSION: Degenerative changes from C4-C5 to C6-C7. Bilateral neural foraminal narrowing from bony osteophyte, right greater than left. Normal-appearing prevertebral soft tissues of the neck.
--- NOTE | ~2021-11-15 | XR_ITS ---
EXAMINATION: XR CERVICAL SPINE XR SOFT TISSUE OF THE NECK CLINICAL INFORMATION: Neck pain COMPARISON: Previous cervical spine x-ray January 2021 TECHNIQUE: 5 views of the cervical spine including bilateral oblique views. Single lateral view of the soft tissues of the cervical spine. FINDINGS: Bone alignment is normal. No fracture or dislocation is seen. There is degenerative spondylosis from C4-C5 to C6-C7. There is disc space narrowing at C6-C7. There is multilevel right-sided neural foraminal narrowing from bony osteophyte. Exam may be slightly limited due to patient positioning. There is evidence of right-sided neural foraminal narrowing at C2-C3, C3-C4 and C4-C5 and C6-C7. There is left-sided neural foraminal narrowing from bony osteophyte at C3-C4, C4-C5 and C6-C7. Prevertebral soft tissues are normal. No abnormal air collection or soft tissue foreign body is seen. The epiglottis is normal. No calcifications are seen. The visualized lung apices are clear. XR/XR cervical spine 4V IMPRESSION: Degenerative changes from C4-C5 to C6-C7. Bilateral neural foraminal narrowing from bony osteophyte, right greater than left. Normal-appearing prevertebral soft tissues of the neck.
--- NOTE | ~2021-11-15 | XR_ITS ---
EXAMINATION: XR RIBS, RIGHT CLINICAL INFORMATION: Pleurodynia COMPARISON: Previous chest CT 11/11/2021 and chest x-ray July 2020 TECHNIQUE: 3 views of the right ribs and one view of the chest were obtained. FINDINGS: The cardiac and mediastinal contours are stable. The lungs are clear. There is no pleural effusion or pneumothorax. There are degenerative changes and mild scoliosis of the thoracic spine. No rib fracture or bone lesion is seen. XR/XR ribs RT min 3V w CXR1V IMPRESSION: Normal-appearing chest and right ribs. Degenerative changes and mild scoliosis of the thoracic spine.
== END 2021-11-15 10:47 | disposition home or self-care (01) ==
LOC: HO.XRAY 10:46
PROVIDERS: PCP Internal Medicine Geriatric Medicine; Referring Provider Registered Nurse; Visit Provider Family Medicine
DX: G44.311 Acute post-traumatic headache, intractable (principal); M54.2 Cervicalgia; R07.81 Pleurodynia; S09.90XD Unspecified injury of head, subsequent encounter; J44.9 Chronic obstructive pulmonary disease, unspecified; R91.8 Other nonspecific abnormal finding of lung field
CPT/HCPCS: 70360; 71101; 72050; 99212

== ENCOUNTER → 2021-11-29 07:57 | Outpatient (BNVA) | payer MEDICARE, MEDICAID, SELFPAY | PROVIDERS: PCP Internal Medicine Geriatric Medicine; Visit Provider Physician Assistant Surgical | CPT/HCPCS: Q3014 ==

== ENCOUNTER → 2021-12-24 13:05 | Outpatient (BNVA) | payer MEDICARE, MEDICAID, SELFPAY | PROVIDERS: PCP Internal Medicine Geriatric Medicine; Referring Provider Internal Medicine Geriatric Medicine; Visit Provider Nurse Practitioner Family | DX: K21.9 Gastro-esophageal reflux disease without esophagitis (principal); K59.01 Slow transit constipation; R10.84 Generalized abdominal pain; Q45.3 Other congenital malformations of pancreas and pancreatic duct | CPT/HCPCS: 99202 ==

== ENCOUNTER 2021-12-29 12:36 | Outpatient (REF) | payer MEDICARE, MEDICAID, SELFPAY ==
[2021-12-29 14:09] LABS: Appearance Urine HAZY; Color Urine ORANGE; Glucose Urine UA NEG (NEG); Leukocyte Esterase Urine NEG (NEG); Nitrite Urine NEG (NEG); Specific Gravity - Urine 1.025 (1.005-1.025); Urine Blood NEG (NEG); Urine Ketones NEG (NEG); Urine Protein NEG (NEG-TRACE)
[2021-12-29 14:09] LABS: Alanine Aminotransferase 18 U/L (0-31); Albumin Level 4.2 g/dL (3.5-5.0); Alkaline Phosphatase 64 U/L (39-117); Aspartate Amino Transferase 18 U/L (5-31); Bilirubin Direct < 0.2 mg/dL (0.0-0.5); Bilirubin Total 0.6 mg/dL (0.0-1.0); Total Protein 6.8 g/dL (6.5-8.0)
[2021-12-29 14:31] LABS: TSH reflex Free T4 0.32 uIU/mL (0.32-4.0)
[2021-12-29 14:59] LABS: Folate > 20.0 ng/mL (> or = 4.0); Vitamin B12 > 2000 pg/mL (200-900)
[2021-12-29 15:39] LABS: UACC Culture Trigger NO
[2022-01-02 15:11] LABS: Vitamin D 25-OH, D2 <4 ng/mL; Vitamin D 25-OH, D3 38 ng/mL; Vitamin D 25-OH, Total 38 ng/mL (30-100)
== END 2021-12-29 12:37 | disposition home or self-care (01) ==
LOC: HO.LAB 12:36
PROVIDERS: PCP Internal Medicine Geriatric Medicine; Visit Provider Nurse Practitioner Family
DX: R19.7 Diarrhea, unspecified (principal); E55.9 Vitamin D deficiency, unspecified; R30.0 Dysuria
CPT/HCPCS: 36415; 80076; 81003; 82306; 82607; 82746; 84443

== ENCOUNTER → 2022-04-18 13:07 | Outpatient (BNVA) | payer MEDICARE, MEDICAID, SELFPAY | PROVIDERS: PCP Internal Medicine Geriatric Medicine; Visit Provider Nurse Practitioner Family | DX: Z12.11 Encounter for screening for malignant neoplasm of colon (principal); R10.84 Generalized abdominal pain; K58.9 Irritable bowel syndrome, unspecified; K21.9 Gastro-esophageal reflux disease without esophagitis; Z90.3 Acquired absence of stomach [part of] | CPT/HCPCS: 99212 ==

== ENCOUNTER 2022-06-10 09:12 | Outpatient (REF) | payer MEDICARE, MEDICAID, SELFPAY ==
--- NOTE | ~2022-06-10 | XR_ITS ---
EXAMINATION: XR KNEE, RIGHT CLINICAL INFORMATION: Pain. COMPARISON: None TECHNIQUE: AP, lateral, and sunrise views of the right knee. FINDINGS: Bony mineralization is normal. The lateral joint space compartment is well-maintained, and there is marked asymmetric narrowing of the medial joint space compartment. There is a secondary mild varus configuration. There is moderate narrowing of the patellofemoral compartment, most pronounced laterally. There is tricompartment peripheral osteophyte formation. No fracture, dislocation or significant joint effusion is seen. There is no foreign body. XR/XR knee LT 3V IMPRESSION: There is tricompartment osteoarthritic change of the right knee, most pronounced in the medial joint space compartment, where it is marked. There is a secondary mild varus configuration. EXAMINATION: XR KNEE, LEFT CLINICAL INFORMATION: Pain. COMPARISON: None. TECHNIQUE: AP, lateral, and sunrise views of the left knee. FINDINGS: Bony mineralization is normal. There is moderate asymmetric narrowing of the medial joint space compartment, and the lateral joint space compartment is well-maintained. There is a secondary mild varus configuration. The patellofemoral compartment shows moderate narrowing, most pronounced laterally. There is tricompartment peripheral osteophyte formation. No acute fracture or dislocation is seen. An old, healed, well-corticated avulsion fragment versus accessory ossification center is seen at the lateral margin of the patella. There is a trace joint effusion. There is no foreign body. IMPRESSION: There is tricompartment osteoarthritic change of the left knee, most pronounced of the medial joint space compartment, where it is moderately severe. There is a secondary mild varus configuration
--- NOTE | ~2022-06-10 | XR_ITS ---
EXAMINATION: XR KNEE, RIGHT CLINICAL INFORMATION: Pain. COMPARISON: None TECHNIQUE: AP, lateral, and sunrise views of the right knee. FINDINGS: Bony mineralization is normal. The lateral joint space compartment is well-maintained, and there is marked asymmetric narrowing of the medial joint space compartment. There is a secondary mild varus configuration. There is moderate narrowing of the patellofemoral compartment, most pronounced laterally. There is tricompartment peripheral osteophyte formation. No fracture, dislocation or significant joint effusion is seen. There is no foreign body. XR/XR knee RT 3V IMPRESSION: There is tricompartment osteoarthritic change of the right knee, most pronounced in the medial joint space compartment, where it is marked. There is a secondary mild varus configuration. EXAMINATION: XR KNEE, LEFT CLINICAL INFORMATION: Pain. COMPARISON: None. TECHNIQUE: AP, lateral, and sunrise views of the left knee. FINDINGS: Bony mineralization is normal. There is moderate asymmetric narrowing of the medial joint space compartment, and the lateral joint space compartment is well-maintained. There is a secondary mild varus configuration. The patellofemoral compartment shows moderate narrowing, most pronounced laterally. There is tricompartment peripheral osteophyte formation. No acute fracture or dislocation is seen. An old, healed, well-corticated avulsion fragment versus accessory ossification center is seen at the lateral margin of the patella. There is a trace joint effusion. There is no foreign body. IMPRESSION: There is tricompartment osteoarthritic change of the left knee, most pronounced of the medial joint space compartment, where it is moderately severe. There is a secondary mild varus configuration
[2022-06-10 10:28] LABS: Hematocrit 36.3 % (37.0-47.0); Hemoglobin 12.3 g/dl (12.0-16.0); Mean Corpuscular HGB Conc 33.9 g/dl (31.0-35.0); Mean Corpuscular Hemoglobin 31.8 pg (27.0-33.0); Mean Corpuscular Volume 93.8 fL (80.0-98.0); Mean Platelet Volume 11.3 fL (9.4-12.3); Platelet Count 221 X10*3/uL (160-400); Red Blood Count 3.87 X10*6/uL (4.20-5.50); Red Cell Distribution Width 12.9 % (11.0-16.0); White Blood Count 7.8 X10*3/uL (4.8-10.8)
[2022-06-10 10:37] LABS: Estimated Average Glucose 100 mg/dL; Hemoglobin A1c % 5.1 %
[2022-06-10 11:01] LABS: Alanine Aminotransferase 24 U/L (0-31); Albumin Level 4.6 g/dL (3.5-5.0); Alkaline Phosphatase 58 U/L (39-117); Anion Gap 15 (12-20); Aspartate Amino Transferase 22 U/L (5-31); Bilirubin Total 0.3 mg/dL (0.0-1.0); Blood Urea Nitrogen 19 mg/dL (9-16); Calcium 9.6 mg/dL (8.4-10.2); Carbon Dioxide 27 mmol/L (22-29); Chloride 103 mmol/L (96-108); Estimated Glomerular Filt Rate > 60; Glucose Random 92 mg/dL (60-115); Sodium 141 mmol/L (135-145); Total Protein 7.3 g/dL (6.5-8.0)
[2022-06-10 11:04] LABS: Amphetamine Screen Urine Not Detected (Not Detect); Barbiturates, Urine Not Detected (Not Detect); Benzodiazepines Screen Urine Not Detected (Not Detect); Cannabinoid Screen Urine POSITIVE (Not Detect); Cocaine Screen Urine Not Detected (Not Detect); Fentanyl, urine Not Detected (Not Detect); Opiate Screen Urine Not Detected (Not Detect); Phencyclidine Screen Urine Not Detected (Not Detect)
[2022-06-10 11:22] LABS: TSH reflex Free T4 0.05 uIU/mL (0.32-4.0)
[2022-06-10 12:05] LABS: Free T4 (Free Thyroxine) 0.82 ng/dL (0.71-1.85)
== END 2022-06-10 09:13 | disposition home or self-care (01) ==
LOC: HO.LAB 09:12
PROVIDERS: PCP Internal Medicine Geriatric Medicine; Visit Provider Internal Medicine Geriatric Medicine
DX: G89.29 Other chronic pain (principal); M25.562 Pain in left knee; M25.561 Pain in right knee; R63.0 Anorexia; R63.4 Abnormal weight loss; Z79.899 Other long term (current) drug therapy
CPT/HCPCS: 73562; 80053; 80307; 83036; 84439; 84443; 85027

== ENCOUNTER → 2022-06-24 09:26 | Outpatient (BNVA) | payer MEDICARE, MEDICAID, SELFPAY | PROVIDERS: PCP Internal Medicine Geriatric Medicine; Visit Provider Physician Assistant Surgical | DX: E66.3 Overweight (principal); Z90.3 Acquired absence of stomach [part of]; R10.84 Generalized abdominal pain; Z71.3 Dietary counseling and surveillance; Z98.84 Bariatric surgery status; Z79.899 Other long term (current) drug therapy | CPT/HCPCS: 99212 ==

== ENCOUNTER 2022-08-02 10:57 | Day surgery (SDC) | payer MEDICARE, MEDICAID, SELFPAY ==
[2022-07-28 13:55] VITALS: BMI 27.1
--- NOTE | 2022-08-01 13:19 | P.CONAN_ITS ---
Documented by User: Melanie Flores NP 08/01/22 13:21 HPI - Anesthesia Eval Consult details Narrative: 62yo F for Upper Endoscopy and Colonoscopy s/p gastric sleeve 2017 [facility] [place] Active Problems Active Problems: All Active Problems (Updated 07/28/22 @ 13:45 by Awilda Alba, GEM) Asthma-COPD overlap syndrome (Acute) Pulmonary nodules (Acute) Obesity (Acute) Intestinal malabsorption following gastrectomy (Acute) Abdominal pain (Acute) UTI (urinary tract infection) due to Enterococcus (Acute) Pancreatic abnormality (Acute) Overweight (BMI 25.0-29.9) (Acute) History of sleeve gastrectomy (Acute) Past Medical History Medical History Arthritis Asthma BMI 36.0-36.9,adult BMI 37.0-37.9, adult Depression Fibromyalgia Insomnia Migraines Morbid obesity due to excess calories Personal history of solitary pulmonary nodule Sleep apnea Type 2 diabetes mellitus Family History Family History Father No problems noted. Mother Diabetes Brother No problems noted. Brother No problems noted. Brother No problems noted. Sister No problems noted. Sister No problems noted. Sister No problems noted. Daughter No problems noted. Surgical History Surgical History History of bilateral carpal tunnel release History of foot surgery History of right cataract surgery History of sleeve gastrectomy Hx laparoscopic cholecystectomy Social History Social History Alcohol intake: never Patient Tobacco Use Status: Former Tobacco user Quit Date: 2009 Substance Use Type: Marijuana Substance Use Frequency: Daily Are you DNR?: No Advance Directives: No Advance Directives Information Provided: Yes Nutrition Risks: No Nutritional Risk Meds Allergies Allergy/AdvReac Type Severity Reaction Status Date / Time alendronate sodium Allergy Mild HIVES Verified 08/02/22 11:42 [From FOSAMAX] atorvastatin [Lipitor] Allergy Unknown Hives Verified 08/02/22 11:42 naproxen [NAPROXEN] Allergy Unknown UNK Verified 08/02/22 11:42 Home Medications Medication Instructions Recorded Confirmed Last Taken Type montelukast 10 mg tablet 10 mg PO DAILY 08/05/20 07/28/22 Unknown History pregabalin 225 mg capsule (Lyrica) 225 mg PO DAILY 08/05/20 07/28/22 08/02/22 History sumatriptan 85 mg-naproxen 500 mg 1 tab PO Q2-4H PRN Migraine 08/05/20 07/28/22 Unknown History tablet Headache venlafaxine 150 mg 150 mg PO DAILY 08/05/20 07/28/22 08/02/22 History capsule,extended release 24 hr zolpidem 10 mg tablet 10 mg PO BEDTIME PRN Sleep 08/05/20 07/28/22 Unknown History vdhszpds-ijnkylma-qyet 45 mg-folic 1 cap PO DAILY 11/18/20 07/28/22 Unknown History acid 800 mcg-vit K 120 mcg capsule (Bariatric Multivitamins) clonazepam 0.5 mg tablet 0.5 mg PO BEDTIME 05/25/21 07/28/22 Unknown History oxycodone-acetaminophen 5 mg-325 1 tab PO BID PRN Pain 06/24/22 06/24/22 08/02/22 History mg tablet Exam Exam Date and Time: August 01, 2022 1319 Height,Weight and Vital Signs: Height 4 ft 10 in Weight 58.967 kg Pertinent Lab Results Pertinent Lab Results: Laboratory Tests 06/10/22 06/10/22 09:57 09:57 WBC 7.8 Hgb 12.3 Hct 36.3 L Plt Count 221 Sodium 141 Potassium 4.0 D Chloride 103 Carbon Dioxide 27 BUN 19 H Creatinine 0.77 Assessment and Plan Assessment Anesthesia Assessment: Chart Reviewed Documented by User: Gilbert Diaz MD 08/02/22 12:06 [facility] [place] Past Medical History Medical History Arthritis Asthma BMI 36.0-36.9,adult BMI 37.0-37.9, adult Depression Fibromyalgia Insomnia Migraines Morbid obesity due to excess calories Personal history of solitary pulmonary nodule Sleep apnea Type 2 diabetes mellitus Family History Family History Father No problems noted. Mother Diabetes Brother No problems noted. Brother No problems noted. Brother No problems noted. Sister No problems noted. Sister No problems noted. Sister No problems noted. Daughter No problems noted. Family history of problems with anesthesia: No Surgical History Surgical History History of bilateral carpal tunnel release History of foot surgery History of right cataract surgery History of sleeve gastrectomy Hx laparoscopic cholecystectomy History of Problems with Anesthesia: No Social History Social History Alcohol intake: never Patient Tobacco Use Status: Former Tobacco user Quit Date: 2009 Substance Use Type: Marijuana Substance Use Frequency: Daily Are you DNR?: No Advance Directives: No Advance Directives Information Provided: Yes Nutrition Risks: No Nutritional Risk Meds Allergies Allergy/AdvReac Type Severity Reaction Status Date / Time alendronate sodium Allergy Mild HIVES Verified 08/02/22 11:42 [From FOSAMAX] atorvastatin [Lipitor] Allergy Unknown Hives Verified 08/02/22 11:42 naproxen [NAPROXEN] Allergy Unknown UNK Verified 08/02/22 11:42 Home Medications Medication Instructions Recorded Confirmed Last Taken Type montelukast 10 mg tablet 10 mg PO DAILY 08/05/20 07/28/22 Unknown History pregabalin 225 mg capsule (Lyrica) 225 mg PO DAILY 08/05/20 07/28/22 08/02/22 History sumatriptan 85 mg-naproxen 500 mg 1 tab PO Q2-4H PRN Migraine 08/05/20 07/28/22 Unknown History tablet Headache venlafaxine 150 mg 150 mg PO DAILY 08/05/20 07/28/22 08/02/22 History capsule,extended release 24 hr zolpidem 10 mg tablet 10 mg PO BEDTIME PRN Sleep 08/05/20 07/28/22 Unknown History btxkrqjt-eamvdnxu-cfsr 45 mg-folic 1 cap PO DAILY 11/18/20 07/28/22 Unknown History acid 800 mcg-vit K 120 mcg capsule (Bariatric Multivitamins) clonazepam 0.5 mg tablet 0.5 mg PO BEDTIME 05/25/21 07/28/22 Unknown History oxycodone-acetaminophen 5 mg-325 1 tab PO BID PRN Pain 06/24/22 06/24/22 08/02/22 History mg tablet Exam Airway Mallampati Class: II TM Dist: >3cm Neck ROM: Full Partial: Upper and Lower Heart: rrr Lungs: clear Assessment and Plan Final Anesthetic Review Family History of Problems with Anesthesia: No History of Problems with Anesthesia: No NPO: Yes ASA Class: II Final Preanesthetic Review: No Changes in Pt Med Stat, Meds/Allgs Chart Reviewed, Consent Obtained/Reviewed and Anes Risks/Benef Reviewed Patient Risk: Intermediate Procedure Risk: Low Anesthetic Plan Anesthetic Plan: MAC: Disposition: Standard PACU
[2022-08-02] MEDS: Lactated Ringers 1,000 ML 100 ML IVCONT (11:30)
--- NOTE | 2022-08-02 11:30 | MHC.SHP ---
Pre-Procedural Eval Section A Date of Service: 08/02/22 Section B Chief Complaint: screening,reflux,abd pain Relevant Family History (Specify if Yes): No Relevant Social History: None Present Medications: see Short Stay Collaborative assessment Medical History: Significant History (Arthritis Asthma BMI 36.0-36.9,adult BMI 37.0-37.9, adult Depression Fibromyalgia Insomnia Migraines Morbid obesity due to excess calories Personal history of solitary pulmonary nodule Sleep apnea Type 2 diabetes mellitus) History of Previous Operations: Relevant previous surgery/procedure and date(s) (History of bilateral carpal tunnel release History of foot surgery History of right cataract surgery History of sleeve gastrectomy Hx laparoscopic cholecystectomy) Allergies: Allergies Allergy/AdvReac Type Severity Reaction Status Date / Time alendronate sodium Allergy Mild HIVES Verified 07/28/22 13:50 [From FOSAMAX] atorvastatin [Lipitor] Allergy Unknown Hives Verified 07/28/22 13:50 naproxen [NAPROXEN] Allergy Unknown UNK Verified 07/28/22 13:50 Review of Systems Sugical H&P ROS: Negative: Constitution, Cardiovascular, Respiratory, Neurological, Psychiatric, Hem-Onc, Allergic/Immunologic, Gastrointestinal, Genitourinary, Musculoskeletal, Integumentary, Endocrine and Eyes/Ears/Nose/Throat Exam Surgical H&P Exam: Normal: HEENT, Normal: Heart, Normal: Lungs, Normal: Extremities, Normal: Abdomen, Normal: Skin and Normal: Neurological Plan Diagnosis/Plan: Unchanged I have reviewed the history and physical and performed a pertinent physical examination on my patient. No changes have occurred unless specified.
[2022-08-02 11:31] VITALS: BP 109/53; PULSE 68; RESP 18; TEMP 36.7; O2SAT 99
--- NOTE | 2022-08-02 11:57 | W.PM.OPN ---
Operative Note Operative Note Date of Service: 08/02/22 Narrative: Operative Information Procedure Description: EGD, Colonoscopy Indication: abdominal pain Anesthesia: MAC FLEXIBLE TRANSORAL UPPER GASTROINTESTINAL ENDOSCOPY AND COLONOSCOPY PROCEDURE NOTE UPPER ENDOSCOPY Consent: Indications for the procedure and potential complications of bleeding, perforation, reaction to medications and missed diagnosis were discussed with the patient and informed consent was obtained. Instrument: Olympus GIF H 190 J mid size upper endoscope Monitoring: Vital signs and clinical assessment, continuous EKG monitoring, Pulse oximetry, Carbon Dioxide monitoring and blood pressure monitoring were done throughout the procedure. Procedure: The patient was placed in the left lateral decubitis position and pre-procedure medications were administered and a bite block was placed. The endoscope was inserted into the mouth and advanced under direct vision to the third part of duodenum. A careful inspection was made as the upper endoscope was withdrawn including a retroflexed examination of the proximal stomach; Findings and interventions are described below. Findings: Larynx:normal Esophagus: GE junction at 35 cm, diaphragm hiatus at 35 cm, bogginess and erythema at GEJ, bx taken from here and distal esophagus Stomach: streaky patchy erythema. Biopsies were obtained. Grade 2 flap valve on retroflexed examination of the cardia. post surgical changes of sleeve gastrectomy noted. Duodenum: Normal bulb and descending duodenum, Intervention: Biopsies as noted above COLONOSCOPY Instrument: Olympus variable stiffness pediatric scope 190L Colonoscopy Monitoring: Vital signs and clinical assessment, continuous EKG monitoring, Pulse oximetry, Carbon Dioxide monitoring and blood pressure monitoring were done throughout the procedure. Colon withdrawal time was 12 minutes. Procedure: The patient was placed in the left lateral decubitis position and pre-procedure medications were administered. After a digital rectal examination of the ano-rectum, the video colonoscope was inserted into the rectum and advanced through the colon to the cecum/TI. The colonoscope was slowly withdrawn in a retrograde panoramic fashion and the colon mucosa was carefully examined including a retroflexed view of the rectum. Findings and interventions are described below. Procedure Difficulty: easy Findings: Terminal Ileum-normal, bx taken random colon bx taken right sided retroflexion was normal Cecum:normal Ascending Colon: normal Transverse Colon -normal Descending Colon: 6-8 mm sessile polyp removed with cold snare Sigmoid Colon:diverticulosis with hypertrophic mucosa and narrowing Rectum: Retroflexion with small internal hemorrhoids, grade I Anorectum - normal Colon preparation: [place] Bowel Preparation Scale Right colon; 2 Transverse colon: 2 Left colon; 1-2 (0 = Unprepared colon segment with mucosa not seen due to solid stool that cannot be cleared. 1 = Portion of mucosa of the colon segment seen, but other areas of the colon segment not well seen due to staining, residual stool and/or opaque liquid. 2 = Minor amount of residual staining, small fragments of stool and/or opaque liquid, but mucosa of colon segment seen well. 3 = Entire mucosa of colon segment seen well with no residual staining, small fragments of stool or opaque liquid) Impression and Post Procedure Diagnosis: Endoscopy Findings: gastritis esophagitis Colonoscopy Findings: polyps internal hemorrhoids diverticular disease Plan: Await Pathology results Repeat Colonoscopy in 5 years due to left sided fair prep or earlier if clinically indicated High fiber diet leaflet avoid straining at stool, epsom salts and sitz bath, anusol supps or cream if H pyloro pos then treat limit nsaid use Above findings were reviewed with the patient and relevant handouts were provided if indicated.
[2022-08-02 12:57] VITALS: BP 96/63; PULSE 68; RESP 20; TEMP 36.4; O2SAT 100
[2022-08-02 13:12] VITALS: BP 106/64; PULSE 62; RESP 16; O2SAT 97
[2022-08-02 13:20] VITALS: BP 110/62; PULSE 59; RESP 16; TEMP 36.3; O2SAT 97
== END 2022-08-02 14:07 ==
LOC: HO.SSS 10:58
PROVIDERS: PCP Internal Medicine Geriatric Medicine; Visit Provider Internal Medicine Gastroenterology
PROC: (CPT 45385; principal; 2022-08-02 12:30)
DX: Z12.11 Encounter for screening for malignant neoplasm of colon (principal); D12.4 Benign neoplasm of descending colon; K57.30 Diverticulosis of large intestine without perforation or abscess without bleeding; K64.0 First degree hemorrhoids; R10.84 Generalized abdominal pain; K21.9 Gastro-esophageal reflux disease without esophagitis; K29.50 Unspecified chronic gastritis without bleeding; K20.80 Other esophagitis without bleeding; K44.9 Diaphragmatic hernia without obstruction or gangrene; K86.2 Cyst of pancreas; G47.33 Obstructive sleep apnea (adult) (pediatric); M79.7 Fibromyalgia; F32.A Depression, unspecified; E11.9 Type 2 diabetes mellitus without complications; J45.909 Unspecified asthma, uncomplicated; Z79.51 Long term (current) use of inhaled steroids; Z79.899 Other long term (current) drug therapy; Z88.8 Allergy status to other drugs, medicaments and biological substances; Z98.84 Bariatric surgery status; Z90.49 Acquired absence of other specified parts of digestive tract; Z87.891 Personal history of nicotine dependence
CPT/HCPCS: 45385; 45380; 43239; 88305; 88342

== ENCOUNTER → 2022-08-16 10:19 | Outpatient (BNVA) | payer MEDICARE, MEDICAID, SELFPAY | PROVIDERS: PCP Internal Medicine Geriatric Medicine; Visit Provider Nurse Practitioner Family | DX: R10.84 Generalized abdominal pain (principal); D36.9 Benign neoplasm, unspecified site; K57.90 Diverticulosis of intestine, part unspecified, without perforation or abscess without bleeding; Z98.890 Other specified postprocedural states | CPT/HCPCS: 99212 ==

== ENCOUNTER → 2022-08-29 12:54 | Outpatient (BNVA) | payer MEDICARE, MEDICAID, SELFPAY | PROVIDERS: PCP Internal Medicine Geriatric Medicine; Visit Provider Physician Assistant Surgical | DX: E66.01 Morbid (severe) obesity due to excess calories (principal); Z68.28 Body mass index [BMI] 28.0-28.9, adult; Z90.3 Acquired absence of stomach [part of]; Z90.49 Acquired absence of other specified parts of digestive tract | CPT/HCPCS: 99212 ==

== ENCOUNTER → 2022-09-07 08:55 | Outpatient (BNVA) | payer MEDICARE, MEDICAID, SELFPAY | PROVIDERS: PCP Internal Medicine Geriatric Medicine; Visit Provider Internal Medicine Pulmonary Disease | DX: R91.8 Other nonspecific abnormal finding of lung field (principal); J44.9 Chronic obstructive pulmonary disease, unspecified; F12.90 Cannabis use, unspecified, uncomplicated; Z87.891 Personal history of nicotine dependence | CPT/HCPCS: 99212 ==

== ENCOUNTER → 2022-10-14 09:10 | Outpatient (BNVA) | payer MEDICARE, MEDICAID, SELFPAY | PROVIDERS: PCP Internal Medicine Geriatric Medicine; Visit Provider Internal Medicine Pulmonary Disease | DX: J44.9 Chronic obstructive pulmonary disease, unspecified (principal); J45.909 Unspecified asthma, uncomplicated; R91.8 Other nonspecific abnormal finding of lung field; R05.8 Other specified cough; F12.20 Cannabis dependence, uncomplicated; Z87.891 Personal history of nicotine dependence; Z79.899 Other long term (current) drug therapy | CPT/HCPCS: 99212 ==

== ENCOUNTER 2022-11-16 11:03 | Outpatient (REF) | payer MEDICARE, MEDICAID, SELFPAY ==
--- NOTE | ~2022-11-16 | CT_ITS ---
EXAMINATION: CT CHEST WITHOUT CONTRAST CLINICAL INFORMATION: Abnormal lung findings. COMPARISON: CT chest 11/11/2021. TECHNIQUE: Multidetector volumetric CT imaging of the chest was done. Axial MIP volume rendering provided. Sagittal and coronal reformatted images were obtained. This CT examination was performed using dose optimization techniques as appropriate, variously including the following: *Automated exposure control *Adjustment of mA and/or kV according to patient size (this includes techniques or standardized protocols for targeted exams where dose is matched to indication/reason for exam; i.e. extremities or head) *Use of iterative reconstruction technique DLP: 118 mGy-cm FINDINGS: COMMERCIAL ADMINISTRATOR: Well-inflated lungs. LUNGS: The lungs are well-expanded and clear of acute pneumonic process. There is platelike atelectasis/scarring left lung base lateral basal segment. There is 3 mm nodule left lung apex axial image 109/5, 4 mm subpleural nodule left upper lobe axial image 209/5, 2 mm calcified nodules likely granulomas in the right lower lobe, right middle lobe as noted previously, 5 mm noncalcified nodule left lower lobe axial image 303/5, minimal atelectatic changes right middle lobe, 7 mm intrabronchial or nodule left lower lobe axial image 324/5, new since the last study. A 4 mm nodule left lower lobe axial image 353/5 is stable. Mild atelectatic changes seen left lung base. MEDIASTINUM: Heart size and great vessels are normal caliber. No pericardial effusion seen. No abnormal mediastinal or hilar lymphadenopathy. Central trachea and bronchi are widely patent. Thyroid lobes are symmetrical and normal. Small hiatal hernia. CORONARY ARTERY CALCIFICATION: Mild coronary artery calcification is present. PLEURA: There is no pleural effusion. No pleural mass or thickening. AXILLA: No abnormal axillary lymph nodes seen. The chest wall is unremarkable. UPPER ABDOMEN: Visualized liver, spleen, pancreas and bilateral adrenal glands are unremarkable. The gallbladder has been removed. There are gastric bypass surgical changes. OSSEOUS STRUCTURES: No aggressive lytic or sclerotic process seen. CT/CT chest wo IV con IMPRESSION: 7 mm intrabronchiolar density likely nodule or debris left lower lobe, new since the last study. Otherwise, the rest of the calcified and noncalcified pulmonary nodules are stable. No abnormal mediastinal or hilar lymphadenopathy seen. Small hiatal hernia. Evidence of previous gastric bypass surgery. Fleischner guidelines were followed.
== END 2022-11-16 11:04 | disposition home or self-care (01) ==
LOC: HO.CT 11:03
PROVIDERS: PCP Internal Medicine Geriatric Medicine; Visit Provider Internal Medicine Pulmonary Disease
DX: R91.8 Other nonspecific abnormal finding of lung field (principal)
CPT/HCPCS: 71250

== ENCOUNTER → 2022-11-21 10:03 | Outpatient (BNVA) | payer MEDICARE, MEDICAID, SELFPAY | PROVIDERS: PCP Internal Medicine Geriatric Medicine; Visit Provider Nurse Practitioner Family | DX: K86.2 Cyst of pancreas (principal); K21.9 Gastro-esophageal reflux disease without esophagitis | CPT/HCPCS: 99212 ==

== ENCOUNTER → 2022-12-02 10:17 | Outpatient (BNVA) | payer MEDICARE, MEDICAID, SELFPAY | PROVIDERS: PCP Internal Medicine Geriatric Medicine; Visit Provider Internal Medicine Pulmonary Disease | DX: Z01.811 Encounter for preprocedural respiratory examination (principal); J44.9 Chronic obstructive pulmonary disease, unspecified; R91.8 Other nonspecific abnormal finding of lung field | CPT/HCPCS: 99212 ==

== ENCOUNTER → 2022-12-12 10:20 | Outpatient (BNVA) | payer MEDICARE, MEDICAID, SELFPAY | PROVIDERS: PCP Internal Medicine Geriatric Medicine; Visit Provider Physician Assistant Surgical | DX: E66.3 Overweight (principal); Z68.27 Body mass index [BMI] 27.0-27.9, adult; Z98.84 Bariatric surgery status | CPT/HCPCS: 99212 ==

== ENCOUNTER 2023-02-01 09:29 | Outpatient (REF) | payer MEDICARE, MEDICAID, SELFPAY ==
[2023-02-01 12:52] LABS: Alanine Aminotransferase 54 U/L (0-31); Albumin Level 4.6 g/dL (3.5-5.0); Alkaline Phosphatase 73 U/L (39-117); Anion Gap 14 (12-20); Aspartate Amino Transferase 29 U/L (5-31); Bilirubin Total 0.5 mg/dL (0.0-1.0); Blood Urea Nitrogen 19 mg/dL (9-16); Calcium 9.6 mg/dL (8.4-10.2); Carbon Dioxide 25 mmol/L (22-29); Chloride 108 mmol/L (96-108); Estimated Glomerular Filt Rate > 60; Glucose Random 113 mg/dL (60-115); Lipase 21 U/L (8-78); Potassium 4.2 mmol/L (3.3-5.1); Sodium 143 mmol/L (135-145); Total Protein 7.1 g/dL (6.5-8.0)
[2023-02-01 13:15] LABS: Folate 16.9 ng/mL (> or = 4.0); TSH reflex Free T4 0.49 uIU/mL (0.32-4.0); Vitamin B12 697 pg/mL (200-900)
[2023-02-07 15:44] LABS: Vitamin D 25-OH, D2 <4 ng/mL; Vitamin D 25-OH, D3 29 ng/mL; Vitamin D 25-OH, Total 29 ng/mL (30-100)
== END 2023-02-01 09:30 | disposition home or self-care (01) ==
LOC: HO.LAB 09:29
PROVIDERS: PCP Internal Medicine Geriatric Medicine; Visit Provider Nurse Practitioner Family
DX: K21.9 Gastro-esophageal reflux disease without esophagitis (principal); E55.9 Vitamin D deficiency, unspecified; R10.9 Unspecified abdominal pain; R19.7 Diarrhea, unspecified; K59.04 Chronic idiopathic constipation; K86.2 Cyst of pancreas
CPT/HCPCS: 36415; 80053; 82306; 82607; 82746; 83690; 84443; 99212

== ENCOUNTER 2023-02-14 08:08 | Outpatient (REF) | payer MEDICARE, MEDICAID, SELFPAY ==
[2023-02-14 08:24] LABS: MANUAL DIFF FLAG NO
[2023-02-14 09:07] LABS: Basophils Percent Auto 0.6 % (0-2); Eosinophils Absolute Auto 0.1 X10*3/uL (0.0-0.4); Eosinophils Percent Auto 1.9 % (0-4); Hematocrit 40.3 % (37.0-47.0); Imm Gran Abs Auto 0.02 X10*3/uL (0.00-0.03); Imm Gran Pct Auto 0.3 % (0.0-0.4); Lymphocytes Absolute Auto 1.8 X10*3/uL (1.2-4.9); Lymphocytes Percent Auto 27.4 % (20-40); Mean Corpuscular HGB Conc 32.3 g/dl (31.0-35.0); Mean Platelet Volume 10.2 fL (9.4-12.3); Monocytes Absolute Auto 0.4 X10*3/uL (0.1-1.2); Neutrophils Absolute Auto 4.1 x10*3/uL (2.0-8.3); Neutrophils Percent Auto 63.8 % (45-73); Platelet Count 190 X10*3/uL (160-400); Red Cell Distribution Width 13.2 % (11.0-16.0); White Blood Count 6.4 X10*3/uL (4.8-10.8)
[2023-02-14 09:14] LABS: Estimated Average Glucose 100 mg/dL; Hemoglobin A1c % 5.1 %
[2023-02-14 09:58] LABS: Alanine Aminotransferase 119 U/L (0-31); Albumin Level 4.2 g/dL (3.5-5.0); Alkaline Phosphatase 71 U/L (39-117); Anion Gap 11 (12-20); Aspartate Amino Transferase 64 U/L (5-31); Bilirubin Total 0.4 mg/dL (0.0-1.0); Blood Urea Nitrogen 16 mg/dL (9-16); C Reactive Protein < 0.10 mg/dL (< or = 0.50); Calcium 9.5 mg/dL (8.4-10.2); Carbon Dioxide 28 mmol/L (22-29); Chloride 110 mmol/L (96-108); Cholesterol 164 mg/dL; Estimated Glomerular Filt Rate > 60; Glucose Random 98 mg/dL (60-115); HDL Cholesterol 65 mg/dL; Iron 78 mcg/dL (30-160); LDL Cholesterol Calculated 84 mg/dl; Percent Iron Saturation 30 % (15-50); Potassium 4.6 mmol/L (3.3-5.1); Sodium 144 mmol/L (135-145); Total Iron Binding Capacity 263 mcg/dL (228-428); Total Protein 6.7 g/dL (6.5-8.0); Triglycerides 76 mg/dL; Unsaturated Iron Binding 185 ug/dL
[2023-02-14 10:18] LABS: Ferritin 99 ng/mL (10-250); Folate 14.1 ng/mL (> or = 4.0); Insulin 13 uU/mL (2-29); TSH reflex Free T4 0.65 uIU/mL (0.32-4.0); Vitamin B12 609 pg/mL (200-900); Vitamin D 25-OH Total 36.7 ng/mL (>30)
[2023-02-15 13:48] LABS: Calcium (PTHI) 9.9 mg/dL (8.6-10.4); PTHI 26 pg/mL (16-77)
[2023-02-17 17:53] LABS: Zinc 74 mcg/dL (60-130)
[2023-02-20 13:23] LABS: Vitamin B1 15 nmol/L (8-30)
[2023-02-21 06:18] LABS: Vitamin A 86 mcg/dL (38-98)
== END 2023-02-14 08:09 | disposition home or self-care (01) ==
LOC: HO.LAB 08:08
PROVIDERS: PCP Internal Medicine Geriatric Medicine; Visit Provider Physician Assistant Surgical
DX: K91.2 Postsurgical malabsorption, not elsewhere classified (principal); Z90.3 Acquired absence of stomach [part of]; Z98.84 Bariatric surgery status
CPT/HCPCS: 36415; 80053; 80061; 82306; 82607; 82728; 82746; 83036; 83525; 83540; 83970; 84425; 84443; 84590; 84630; 85025; 86140

== ENCOUNTER 2023-02-23 11:11 | Outpatient (REF) | payer MEDICARE, MEDICAID, SELFPAY ==
--- NOTE | ~2023-02-23 | MR_ITS ---
EXAMINATION: MRI ABDOMEN WITH AND WITHOUT CONTRAST CLINICAL INFORMATION: K86.2 - Cyst of pancreas COMPARISON: Prior studies including the 09/17/2021 MRI TECHNIQUE: Multiple routine MRI sequences through the abdomen were obtained on a high-field 1.5Tesla MRI. Pre-and postcontrast images with 6 mL of Gadavist intravenous contrast were obtained. This included a dynamic contrast-enhanced technique. FINDINGS: Lung bases: The visualized lung bases are unremarkable. Liver: The liver is normal in size, shape, and signal. No suspicious focal hepatic lesions seen. Specifically no suspicious arterial phase enhancing lesions or suspicious washout of contrast on later phases. Biliary ducts: No intrahepatic biliary ductal dilatation. The common bile duct measures up to 1.1 cm in maximal diameter likely within normal limits for patient age and postcholecystectomy status. No intraluminal filling defects are seen within the duct. Gallbladder: Surgically absent Pancreas: There is a stable appearing oval-shaped 1.2 x 0.7 cm cyst in the pancreatic neck/body in close proximity to the adjacent normal caliber duct. I do not appreciate any solid component, enhancement, or filling defects. Pancreas is otherwise homogeneous in signal. No pancreatic ductal dilatation or obstruction. No peripancreatic inflammatory changes or fluid. Spleen: Unremarkable Adrenals: Unremarkable Kidneys: Kidneys are normal in size, shape, and signal. Tiny millimeter sized T2 bright nonenhancing cortical cysts bilaterally incidentally noted. No suspicious renal mass lesion seen. No hydronephrosis or perinephric edema. Other: No bulky adenopathy MR/MR abdomen wo/w con IMPRESSION: Stable appearance to the 1.2 cm oval-shaped cyst in the pancreatic neck/body. I do not appreciate any suspicious or worrisome features. No pancreatic ductal dilatation or obstruction. Continued follow-up imaging in one years time to assure stability would be recommended.
== END 2023-02-23 11:12 | disposition home or self-care (01) ==
LOC: HO.MRI 11:11
PROVIDERS: PCP Internal Medicine Geriatric Medicine; Visit Provider Nurse Practitioner Family
DX: K86.2 Cyst of pancreas (principal)
CPT/HCPCS: 74183; A9585

== ENCOUNTER 2023-03-08 07:30 | Outpatient (REF) | payer MEDICARE, MEDICAID, SELFPAY ==
--- NOTE | ~2023-03-08 | CT_ITS ---
EXAMINATION: CT HEAD WITHOUT CONTRAST CLINICAL INFORMATION: Dizziness, giddiness and headache. COMPARISON: None available. TECHNIQUE: Contiguous axial imaging was performed from the skull base to vertex without intravenous administration of contrast. This CT examination was performed using dose optimization techniques as appropriate, variously including the following: *Automated exposure control *Adjustment of mA and/or kV according to patient size (this includes techniques or standardized protocols for targeted exams where dose is matched to indication/reason for exam; i.e. extremities or head) *Use of iterative reconstruction technique DLP: 749 mGy-cm FINDINGS: There is no acute intra-axial, extra-axial bleed, masses or midline shift. There is no acute infarction in evolution . There is no edema. The lateral ventricles are symmetrical in size and configuration without enlargement. Bone windows reveal no calvarial abnormality. There is no scalp soft tissue abnormality. Bilateral paranasal sinuses and mastoid air cells are well-aerated. CT/CT head/brain wo IV con IMPRESSION: No acute intracranial process seen.
== END 2023-03-08 07:31 | disposition home or self-care (01) ==
LOC: HO.CT 07:30
PROVIDERS: PCP Internal Medicine Geriatric Medicine; Visit Provider Internal Medicine Geriatric Medicine
DX: R51.9 Headache, unspecified (principal); R42 Dizziness and giddiness
CPT/HCPCS: 70450

== ENCOUNTER → 2023-03-23 11:56 | Outpatient (BNVA) | payer MEDICARE, MEDICAID, SELFPAY | PROVIDERS: PCP Internal Medicine Geriatric Medicine; Visit Provider Physician Assistant Surgical | DX: E66.3 Overweight (principal); Z68.27 Body mass index [BMI] 27.0-27.9, adult; Z90.3 Acquired absence of stomach [part of] | CPT/HCPCS: Q3014 ==

== ENCOUNTER → 2023-04-04 10:54 | Outpatient (BNVA) | payer MEDICARE, MEDICAID, SELFPAY | PROVIDERS: PCP Internal Medicine Geriatric Medicine; Visit Provider Nurse Practitioner Family | DX: Z01.811 Encounter for preprocedural respiratory examination (principal); J44.9 Chronic obstructive pulmonary disease, unspecified | CPT/HCPCS: 94010; 99212 ==

== ENCOUNTER 2023-06-22 10:46 | Emergency (ER) | payer MEDICARE, MEDICAID, SELFPAY ==
--- NOTE | ~2023-06-22 | XR_ITS ---
EXAMINATION: XR CHEST CLINICAL INFORMATION: Chest pain. COMPARISON: 11/15/2021 chest and rib radiographs. TECHNIQUE: 2 views of the chest were obtained. FINDINGS: No significant abnormality is noted involving the heart, lungs, mediastinum, bony thorax or soft tissues. XR/XR chest 2V IMPRESSION: No acute cardiopulmonary process.
--- NOTE | 2023-06-22 10:54 | ECG_ITS ---
Test Reason : CHEST DISC Blood Pressure : / mmHG Vent. Rate : 079 BPM Atrial Rate : 079 BPM P-R Int : 152 ms QRS Dur : 090 ms QT Int : 392 ms P-R-T Axes : 044 -10 041 degrees QTc Int : 449 ms Normal sinus rhythm Cannot rule out Inferior infarct , age undetermined Abnormal ECG When compared with ECG of 02-AUG-2020 17:01, No significant change was found Referred By: Generic ED Physician Electronically Signed By:JANNETH ROLLINS
[2023-06-22 12:04] VITALS: BP 145/79; PULSE 75; RESP 19; TEMP 36.3; O2SAT 99; BMI 31.2
--- NOTE | 2023-06-22 12:04 | ED_ITS ---
HPI - General Adult General Chief complaint: General Medical Stated complaint: pinch in chest Time Seen by Provider: 06/22/23 14:12 Source: patient Limitations: no limitations History of Present Illness HPI narrative: 63-year-old female presents with chest pain. Pain occurred at 10:00 a.m. this morning while she was watching TV. The pain was described as a moderate pinch in the left upper chest that lasted 1-2 seconds. There are no other associated symptoms such as shortness of breath, palpitations, lightheadedness, near syncope. Patient has never experienced this pain before. The pain has not returned. There is no association with exertion. The pain did not radiate. Related Data Home Medications Medication Instructions Recorded Confirmed montelukast 10 mg tablet 10 mg PO DAILY 08/05/20 04/04/23 pregabalin 225 mg capsule (Lyrica) 225 mg PO DAILY 08/05/20 04/04/23 venlafaxine 150 mg 150 mg PO DAILY 08/05/20 04/04/23 capsule,extended release 24 hr zolpidem 10 mg tablet 10 mg PO BEDTIME PRN Sleep 08/05/20 04/04/23 drhjviet-sxbqbrli-khqt 45 mg-folic 1 cap PO DAILY 11/18/20 04/04/23 acid 800 mcg-vit K 120 mcg capsule (Bariatric Multivitamins) clonazepam 0.5 mg tablet 0.5 mg PO BEDTIME 05/25/21 04/04/23 oxycodone-acetaminophen 5 mg-325 1 tab PO BID PRN Pain 06/24/22 04/04/23 mg tablet Previous Rx's Medication Instructions Recorded sennosides 8.6 mg tablet (Natural 17.2 mg PO BEDTIME constipation 02/01/23 Senna Laxative) #60 tabs Trelegy Ellipta 200 mcg-62.5 1 inh inhalation DAILY 30 days #1 06/07/23 mcg-25 mcg powder for inhalation ea (giubauazeoo-yaxhglxwk-jdqinvqy) albuterol sulfate 90 mcg/actuation 2 puff PO Q4-6H PRN for wheezing 06/07/23 aerosol inhaler #6.7 ea Allergies Allergy/AdvReac Type Severity Reaction Status Date / Time alendronate sodium Allergy Mild HIVES Verified 04/04/23 11:07 [From FOSAMAX] atorvastatin [Lipitor] Allergy Unknown Hives Verified 04/04/23 11:07 naproxen [NAPROXEN] Allergy Unknown UNK Verified 04/04/23 11:07 Review of Systems Review of Systems: CONSTITUTIONAL: Denies weight loss, fever and chills. HEENT: Denies changes in vision and hearing. RESPIRATORY: Denies SOB and cough. CV: Denies palpitations + CP. GI: Denies abdominal pain, nausea, vomiting and diarrhea. : Denies dysuria and urinary frequency. MSK: Denies myalgia and joint pain. SKIN: Denies rash and pruritus. NEUROLOGICAL: Denies headache and syncope. PSYCHIATRIC: Denies recent changes in mood. Denies anxiety and depression. All other ROS are negative unless in HPI PMFSH Past Medical History Medical History Arthritis Asthma BMI 36.0-36.9,adult BMI 37.0-37.9, adult Depression Diverticulosis Fibromyalgia Insomnia Migraines Morbid obesity due to excess calories Personal history of solitary pulmonary nodule Sleep apnea Tubular adenoma Type 2 diabetes mellitus Surgical History History of bilateral carpal tunnel release History of foot surgery History of right cataract surgery History of sleeve gastrectomy Hx laparoscopic cholecystectomy Hx of colonoscopy Family History Family History Father No problems noted. Mother Diabetes Brother No problems noted. Brother No problems noted. Brother No problems noted. Sister No problems noted. Sister No problems noted. Sister No problems noted. Daughter No problems noted. Social History Social History Alcohol intake: never Patient Tobacco Use Status: Former Tobacco user Quit Date: 2009 Substance Use Type: Marijuana Advance Directives: No Advance Directives Information Provided: Yes Physical Exam ED Vital Signs: Vital Signs - 24 hr 06/22/23 12:04 06/22/23 14:14 Temperature 97.4 F Pulse Rate 75 69 Respiratory Rate 19 14 Blood Pressure 145/79 H 110/56 L Pulse Oximetry 99 100 Oxygen Delivery Method Room Air Room Air BMI result Body Mass Index 31.2 GEN: Well developed, no acute distress, alert, oriented HEENT: Normocephalic, atraumatic, normal external ears, nose appears normal, no oropharyngeal edema or exudates Eyes: Normal to appearance Neck: Supple, no lymphadenopathy Respiratory: Talks in complete sentences, no respiratory distress, clear to auscultation bilaterally Cardiovascular: Regular rate and rhythm, no murmurs rubs or gallops Abdomen: Soft, nontender, nondistended, no guarding, no rebound Back: No CVA tenderness Extremities: No clubbing cyanosis or edema Neurologic: No focal neurologic deficits, cranial nerves 2-12 intact, strength is 5/5 bilaterally Skin: No rash Course Course Course Narrative: RME: 63 yo F w/PMHx Asthma-COPD overlap syndrome, sleeve gastrectomy, c/o pinching pain in Left chest this morning lasting a few seconds while at rest w /assoc ALMARAZ. Admits pain non-radiating, now with residual pain beneath L breast. Denies N/V, SOB EKG, Labs, CXR ordered Full HPI, ROS and PE to be performed by primary ED provider. Reevaluation(s) Reevaluation #1: The workup is complete, cardiac enzymes are negative, atypical story, no ischemic changes on EKG. Doubt acute coronary syndrome. Doubt pulmonary embolus, patient is not tachycardic normotensive and no evidence of hypoxia. No evidence of right heart strain on EKG. Patient will be discharged at this time. She was instructed to return for any concerning symptoms. Time: 14:55 Medical Decision Making Medical Decision Making [facility] Narrative: 63-year-old female presents with a sharp brief single episode of chest pain. The history is very inconsistent with cardiac pain. Patient denies any cardiac history. Examination was unremarkable. I will order an EKG, cardiac enzymes and additional testing to make sure there are no acute abnormalities. Differential diagnosis includes anxiety, GERD, cardiac, pulmonary. Doubt pulmonary embolus although patient does have a recent knee replacement surgery. Examination does not reveal any lower extremity edema. She is not hypoxic or tachycardic. Differential Diagnosis Differential Diagnoses: The differential diagnosis associated with the presentation includes (See above) Admission/Observation Consideration of admission/observation: Escalation of care including admission/observation considered Lab Data [facility] Lab Attestation statement: I reviewed the patient's lab results. 06/22/23 14:10 06/22/23 14:10 Labs: Lab Results 06/22/23 06/22/23 06/22/23 Range/Units 14:10 14:10 14:10 WBC 5.2 (4.8-10.8) X10*3/uL RBC 3.90 L (4.20-5.50) X10*6/uL Hgb 12.0 (12.0-16.0) g/dl Hct 36.8 L (37.0-47.0) % MCV 94.4 (80.0-98.0) fL MCH 30.8 (27.0-33.0) pg MCHC 32.6 (31.0-35.0) g/dl RDW 13.3 (11.0-16.0) % Plt Count 208 (160-400) X10*3/uL MPV 10.0 (9.4-12.3) fL Immature Gran % (Auto) 0.4 (0.0-0.4) % Neut % (Auto) 57.3 (45-73) % Lymph % (Auto) 34.2 (20-40) % [place] % (Auto) 5.7 (2-11) % Eos % (Auto) 1.3 (0-4) % Baso % (Auto) 1.1 (0-2) % Lymph # (Auto) 1.8 (1.2-4.9) X10*3/uL [place] # (Auto) 0.3 (0.1-1.2) X10*3/uL Eos # (Auto) 0.1 (0.0-0.4) X10*3/uL Baso # (Auto) 0.1 (0.0-0.2) X10*3/uL Abs Immat Gran (auto) 0.02 (0.00-0.03) X10*3/uL Absolute Neuts (auto) 3.0 (2.0-8.3) x10*3/uL Absolute Nucleated RBC 0.000 (0.0-0.012) X10*3/uL Nucleated RBC % (auto) 0.0 (0.0-0.2) /100WBC PT 11.9 (11.1-13.3) SEC INR 1.0 (0.9-1.1) Sodium 143 (135-145) mmol/L Potassium 3.4 D (3.3-5.1) mmol/L Chloride 112 H (96-108) mmol/L Carbon Dioxide 24 (22-29) mmol/L Anion Gap 10 L (12-20) BUN 10 (9-16) mg/dL Creatinine 0.78 (0.5-1.4) mg/dL Estim Creat Clear Calc 56.7 Estimated GFR > 60 Random Glucose 132 H (60-115) mg/dL Calcium 9.7 (8.4-10.2) mg/dL Total Bilirubin 0.2 (0.0-1.0) mg/dL Direct Bilirubin < 0.2 (0.0-0.5) mg/dL AST 18 (5-31) U/L ALT 18 (0-31) U/L Alkaline Phosphatase 72 (39-117) U/L Total Protein 7.1 (6.5-8.0) g/dL Albumin 4.2 (3.5-5.0) g/dL Lab work essentially normal Independent Interpretation I performed an independent interpretation of an: EKG (Normal sinus rhythm heart rate 79, no acute ST elevations depressions, no right axis deviation, no evidence of right heart strain) and Plain X-Ray (Chest: No acute cardio very disease) Radiology Impression Discussion of test interpretation with radiology: I have reviewed the radiologist's reading. Radiologist Impression: XR/XR chest 2V IMPRESSION: No acute cardiopulmonary process. Dictated By: Abdulkadir Santillan MD Signed By: <Electronically signed by Abdulkadir Santillan MD in OV> 06/22/23 1239 DD/ 1235 TD/TT:? Insulation Helper: GR Prescription Management I considered prescription management with: Pain Medication Discharge Plan Discharge Clinical Impression: Atypical chest pain Patient Disposition: Home, Self-Care Instructions: Chest Pain (ED) Prescriptions: No Action albuterol sulfate 90 mcg/actuation HFA aerosol inhaler 2 puff PO Q4-6H PRN (Reason: for wheezing) Qty: 6.7 6RF Trelegy Ellipta 200-62.5-25 mcg blister with device 1 inh inhalation DAILY 30 Days Qty: 1 6RF venlafaxine 150 mg capsule,extended release 24hr 150 mg PO DAILY montelukast 10 mg tablet 10 mg PO DAILY pregabalin [Lyrica] 225 mg capsule 225 mg PO DAILY zolpidem 10 mg tablet 10 mg PO BEDTIME PRN (Reason: Sleep) Bariatric Multivitamins 45 mg iron- 800 mcg-120 mcg capsule 1 cap PO DAILY clonazepam 0.5 mg tablet 0.5 mg PO BEDTIME Rx Instructions: administer 30 minutes before bedtime oxycodone-acetaminophen 5-325 mg tablet 1 tab PO BID PRN (Reason: Pain) sennosides [Natural Senna Laxative] 8.6 mg tablet 17.2 mg PO BEDTIME Qty: 60 3RF Referrals: Name,MD Boo [Primary Care Provider] - 2 days
[2023-06-22 14:14] VITALS: BP 110/56; PULSE 69; RESP 14; O2SAT 100
[2023-06-22 14:15] LABS: MANUAL DIFF FLAG NO
[2023-06-22 14:18] LABS: Basophils Absolute Auto 0.1 X10*3/uL (0.0-0.2); Basophils Percent Auto 1.1 % (0-2); Eosinophils Absolute Auto 0.1 X10*3/uL (0.0-0.4); Eosinophils Percent Auto 1.3 % (0-4); Hematocrit 36.8 % (37.0-47.0); Imm Gran Abs Auto 0.02 X10*3/uL (0.00-0.03); Imm Gran Pct Auto 0.4 % (0.0-0.4); Lymphocytes Absolute Auto 1.8 X10*3/uL (1.2-4.9); Lymphocytes Percent Auto 34.2 % (20-40); Mean Corpuscular HGB Conc 32.6 g/dl (31.0-35.0); Mean Corpuscular Hemoglobin 30.8 pg (27.0-33.0); Mean Corpuscular Volume 94.4 fL (80.0-98.0); Monocytes Absolute Auto 0.3 X10*3/uL (0.1-1.2); Monocytes Percent Auto 5.7 % (2-11); Neutrophils Percent Auto 57.3 % (45-73); Platelet Count 208 X10*3/uL (160-400); Red Cell Distribution Width 13.3 % (11.0-16.0); White Blood Count 5.2 X10*3/uL (4.8-10.8)
[2023-06-22 14:29] LABS: Prothrombin Time 11.9 SEC (11.1-13.3)
[2023-06-22 14:30] LABS: Alanine Aminotransferase 18 U/L (0-31); Albumin Level 4.2 g/dL (3.5-5.0); Alkaline Phosphatase 72 U/L (39-117); Anion Gap 10 (12-20); Aspartate Amino Transferase 18 U/L (5-31); Bilirubin Direct < 0.2 mg/dL (0.0-0.5); Bilirubin Total 0.2 mg/dL (0.0-1.0); Blood Urea Nitrogen 10 mg/dL (9-16); Calcium 9.7 mg/dL (8.4-10.2); Carbon Dioxide 24 mmol/L (22-29); Chloride 112 mmol/L (96-108); Creatinine Clr Calc Pharmacy 56.7; Estimated Glomerular Filt Rate > 60; Glucose Random 132 mg/dL (60-115); Potassium 3.4 mmol/L (3.3-5.1); Sodium 143 mmol/L (135-145); Total Protein 7.1 g/dL (6.5-8.0)
[2023-06-22 14:36] LABS: B Type Natriuretic Peptide 25 pg/mL (<100)
[2023-06-22 14:37] LABS: Troponin-I High Sensitivity < 2.7 ng/L (<3.5-17.0)
== END 2023-06-22 15:09 | disposition home or self-care (01) ==
PROVIDERS: Physician Assistant; Emergency Provider Emergency Medicine; PCP Internal Medicine Geriatric Medicine
DX: R07.89 Other chest pain (principal); E11.9 Type 2 diabetes mellitus without complications; F12.90 Cannabis use, unspecified, uncomplicated; Z87.891 Personal history of nicotine dependence; Z90.3 Acquired absence of stomach [part of]; Z79.899 Other long term (current) drug therapy
CPT/HCPCS: 36415; 71046; 80048; 80076; 83880; 84484; 85025; 85610; 93005; 99283; 99284

== ENCOUNTER 2023-07-04 10:15 | Outpatient (AMB) | payer MEDICARE, MEDICAID, SELFPAY ==
[2023-07-04 10:23] VITALS: BP 122/72; PULSE 81; O2SAT 97; BMI 30.8
--- NOTE | 2023-07-04 10:23 | A.OFFVIS_ITS ---
Intake Vital Signs 07/04/23 10:23 Height 4 ft 9 in Weight 142 lb 3.17 oz BMI 30.8 BP 122/72 Blood Pressure Location Rt brachial Position Sitting Pulse 81 Pulse Source Doppler Pulse Oximetry (%) 97 Oxygen Delivery Method Room Air Intake Visit Reasons: asthma Allergies alendronate sodium [From FOSAMAX] Allergy (Mild, Verified 07/04/23 10:34) HIVES atorvastatin [Lipitor] Allergy (Unknown, Verified 07/04/23 10:34) Hives naproxen [NAPROXEN] Allergy (Unknown, Verified 07/04/23 10:34) UNK HPI asthma HPI Details 63-year-old lady, former 35 pack years smoker, now uses marijuana, quit tobacco 2011, followed for pulmonary nodules and? asthma/COPD.? She has been using Treley and albuterol MDI with good control of her underlying symptoms. She denies any recent exacerbations. [facility] Medical History Arthritis Asthma BMI 36.0-36.9,adult BMI 37.0-37.9, adult Depression Diverticulosis Fibromyalgia Insomnia Migraines Morbid obesity due to excess calories Personal history of solitary pulmonary nodule Sleep apnea Tubular adenoma Type 2 diabetes mellitus Surgical History History of bilateral carpal tunnel release History of foot surgery History of right cataract surgery History of sleeve gastrectomy Hx laparoscopic cholecystectomy Hx of colonoscopy Family History Father No problems noted. Mother Diabetes Brother No problems noted. Brother No problems noted. Brother No problems noted. Sister No problems noted. Sister No problems noted. Sister No problems noted. Daughter No problems noted. Social History Alcohol intake: never Patient Tobacco Use Status: Former Tobacco user Quit Date: 2009 Substance Use Type: Marijuana Review of Systems Const Denies daytime sleepiness, Denies excessive sweating, Denies fatigue, Denies fever(s), Denies lethargy, Denies malaise, Denies night sweats, Denies snoring and Denies weight loss Eyes Denies blurry vision and Denies itchy eyes ENT Denies nasal congestion, Denies post nasal drip, Denies sinus pain, Denies sinus pressure and Denies other ( Thrush) Card Denies chest pain, Denies pedal edema, Denies dyspnea, Denies orthopnea and Denies paroxysmal nocturnal dyspnea Resp Denies cough, Denies hemoptysis, Denies excessive phlegm production, Denies dyspnea, Denies snoring and Denies wheezing GI Denies abdominal pain and Denies heartburn Musc Denies myalgias, Denies arthralgias and Denies joint swelling Skin/Breast Denies rash Neuro Denies memory loss and Denies seizure-like activity Psych Denies abnormal sleep pattern, Denies anxiety and Denies memory loss Endo Denies excessive sweating, Denies fatigue and Denies heat intolerance Pete/Lymph Denies easy bruising Aller/Immun Denies itchy eyes, Denies seasonal rhinorrhea and Denies wheezing Physical Exam Vital Signs: Last Vital Signs Pulse 81 07/04/23 10:23 BP 122/72 07/04/23 10:23 Pulse Ox 97 07/04/23 10:23 Oxygen Delivery Method Room Air 07/04/23 10:23 BMI result Body Mass Index 30.8 Const General: no acute distress and alert Nutritional Appearance: not obese Orientation/consciousness: Other orientation findings ( oriented) HEENT Head: Yes atraumatic Eyes General: appearance normal, both eyes and all related structures Sclerae: sclerae normal EOM: EOMs intact bilaterally Neck Neck: Yes supple Lymphatic: no lymphadenopathy noted Resp Effort & Inspection: normal respiratory effort and no use of accessory muscles Auscultation: clear to auscultation bilaterally Cardio Rate: regular rate Rhythm: regular rhythm Heart sounds: no gallops, no murmurs and no rubs Skin General skin exam: other ( warm) Extrem General: No clubbing, No cyanosis and No edema Assessment & Plan Assessment & Plan (1) Asthma-COPD overlap syndrome: Code(s): J44.9 - Chronic obstructive pulmonary disease, unspecified Plan: Well controlled current regimen of Trelegy and albuterol MDI. Continue current regimen. (2) Pulmonary nodules: Code(s): R91.8 - Other nonspecific abnormal finding of lung field Plan: Continue with yearly screening, next in November of 2023, CT ordered. Orders: Orders CT chest wo IV con 11/24/23 R91.8 - Other nonspecific abnormal finding of lung field Coding Level of Care Code Est Pt Level 4 (01940) Diagnoses Asthma-COPD overlap syndrome J44.9 Pulmonary nodules R91.8
== END 2023-07-04 10:44 | disposition home or self-care (01) ==
PROVIDERS: PCP Internal Medicine Geriatric Medicine; Visit Provider Internal Medicine Pulmonary Disease
DX: J44.9 Chronic obstructive pulmonary disease, unspecified (principal); R91.8 Other nonspecific abnormal finding of lung field
CPT/HCPCS: 99214

== ENCOUNTER → 2023-07-04 10:15 | Outpatient (BNVA) | payer MEDICARE, MEDICAID, SELFPAY | PROVIDERS: PCP Internal Medicine Geriatric Medicine; Visit Provider Internal Medicine Pulmonary Disease | DX: J44.9 Chronic obstructive pulmonary disease, unspecified (principal); R91.8 Other nonspecific abnormal finding of lung field; Z79.899 Other long term (current) drug therapy | CPT/HCPCS: 99212 ==

== ENCOUNTER 2023-08-17 | Outpatient (REF) | payer MEDICARE, MEDICAID, SELFPAY | END 2023-08-17 00:01 | disposition home or self-care (01) | LOC: HO.HHCLNP | PROVIDERS: Visit Provider Advanced Practice Midwife | DX: R30.0 Dysuria (principal) | CPT/HCPCS: 87086 ==

== ENCOUNTER 2023-09-04 17:45 | Outpatient (REF) | payer MEDICARE, MEDICAID, SELFPAY | END 2023-09-04 17:46 | disposition home or self-care (01) | LOC: HO.HHCLNP 17:45 | PROVIDERS: Visit Provider Advanced Practice Midwife | DX: Z01.419 Encounter for gynecological examination (general) (routine) without abnormal findings (principal) | CPT/HCPCS: 87624; 88142 ==

== ENCOUNTER 2023-09-07 12:57 | Outpatient (REF) | payer MEDICARE, MEDICAID, SELFPAY ==
--- NOTE | ~2023-09-07 | US_ITS ---
EXAMINATION: US PELVIS CLINICAL INFORMATION: Pelvic pain COMPARISON: None available. TECHNIQUE: Ultrasound of the pelvis is performed using both transabdominal and transvaginal transducers along with Doppler. Transvaginal imaging is performed due to inadequate visualization transabdominally. FINDINGS: Uterus: Uterus is measuring 5.9 x 2.3 x 3.9 cm. Anteverted. Anteflexed. The endometrial thickness is measuring 3 mm. No evidence of fibroid. The right ovary is 1.8 x 1.1 x 1.4 cm. Volume 1.4 mL. No vascularity is demonstrated by the therapy coordinator but the ovary appears normal. Left ovary is 0.9 x 1.2 x 1.2 cm. Volume 0.7 mL. No Vascularity is not demonstrated by the therapy coordinator but the ovary appears normal. No free fluid. US/US pelvic and transvaginal IMPRESSION: Findings as described above. No vascularity is demonstrated by the therapy coordinator in the ovaries however they appear normal.
== END 2023-09-07 12:58 | disposition home or self-care (01) ==
LOC: HO.US 12:57
PROVIDERS: Visit Provider Advanced Practice Midwife
DX: R10.2 Pelvic and perineal pain (principal)
CPT/HCPCS: 76830; 76856

== ENCOUNTER 2023-10-17 09:53 | Outpatient (REF) | payer MEDICARE, MEDICAID, SELFPAY ==
--- NOTE | ~2023-10-17 | XR_ITS ---
EXAMINATION: XR CHEST CLINICAL INFORMATION: Chronic obstructive pulmonary disease. COMPARISON: Chest radiograph 06/22/2023. TECHNIQUE: PA view of the chest was obtained. FINDINGS: Normal appearance of the cardiomediastinal silhouette. Mild diffuse interstitial prominence, slightly increased compared to 06/22/2023. No focal consolidation, pleural effusion or pneumothorax. No acute osseous findings. Right upper quadrant surgical clips are seen. XR/XR chest 1V IMPRESSION: 1. Mild diffuse interstitial prominence which is nonspecific and could be associated with asthma, bronchitis, reactive airways disease or atypical infections. 2. No focal consolidation.
== END 2023-10-17 09:54 | disposition home or self-care (01) ==
LOC: HO.XRAY 09:53
PROVIDERS: PCP Internal Medicine Geriatric Medicine; Visit Provider Internal Medicine Pulmonary Disease
DX: J44.9 Chronic obstructive pulmonary disease, unspecified (principal); R91.8 Other nonspecific abnormal finding of lung field
CPT/HCPCS: 71045; 99212

== ENCOUNTER 2023-10-17 09:53 | Outpatient (AMB) | payer MEDICARE, MEDICAID, SELFPAY ==
[2023-10-17 10:15] VITALS: BP 132/74; PULSE 78; O2SAT 99; BMI 34.3
--- NOTE | 2023-10-17 10:15 | MHC.OFFVIS ---
Intake Vital Signs 10/17/23 10:15 Height 4 ft 9 in Weight 158 lb 11.725 oz BMI 34.3 BP 132/74 Blood Pressure Location Rt brachial Position Sitting Pulse 78 Pulse Source Doppler Pulse Oximetry (%) 99 Oxygen Delivery Method Room Air Intake Visit Reasons: asthma exacerbation Allergies alendronate sodium [From FOSAMAX] Allergy (Mild, Verified 10/17/23 10:21) HIVES atorvastatin [Lipitor] Allergy (Unknown, Verified 10/17/23 10:21) Hives HPI asthma exacerbation HPI Details 63-year-old lady, former 35 pack years smoker, now uses marijuana, quit tobacco 2011, followed for pulmonary nodules and? asthma/COPD.? She has been using Treley and albuterol MDI with good control of her underlying symptoms. Today she does complain acute exacerbation symptomatic with productive cough, but no significant wheezing. She was seen by her primary care in treated with a course prednisone and Augmentin with resolution of wheezing, but still with significant productive cough component. [facility] Medical History Arthritis Asthma BMI 36.0-36.9,adult BMI 37.0-37.9, adult Depression Diverticulosis Fibromyalgia Insomnia Migraines Morbid obesity due to excess calories Personal history of solitary pulmonary nodule Sleep apnea Tubular adenoma Type 2 diabetes mellitus Surgical History History of bilateral carpal tunnel release History of foot surgery History of right cataract surgery History of sleeve gastrectomy Hx laparoscopic cholecystectomy Hx of colonoscopy Family History Father No problems noted. Mother Diabetes Brother No problems noted. Brother No problems noted. Brother No problems noted. Sister No problems noted. Sister No problems noted. Sister No problems noted. Daughter No problems noted. Social History Alcohol intake: never Patient Tobacco Use Status: Former Tobacco user Quit Date: 2009 Substance Use Type: Marijuana Review of Systems Const Denies daytime sleepiness, Denies excessive sweating, Denies fatigue, Denies fever(s), Denies lethargy, Denies malaise, Denies night sweats, Denies snoring and Denies weight loss Eyes Denies blurry vision and Denies itchy eyes ENT Denies nasal congestion, Denies post nasal drip, Denies sinus pain, Denies sinus pressure and Denies other ( Thrush) Card Denies chest pain, Denies pedal edema, Denies dyspnea, Denies orthopnea and Denies paroxysmal nocturnal dyspnea Resp Reports cough, Denies hemoptysis, Reports excessive phlegm production, Denies dyspnea, Denies snoring and Denies wheezing GI Denies abdominal pain and Denies heartburn Musc Denies myalgias, Denies arthralgias and Denies joint swelling Skin/Breast Denies rash Neuro Denies memory loss and Denies seizure-like activity Psych Denies abnormal sleep pattern, Denies anxiety and Denies memory loss Endo Denies excessive sweating, Denies fatigue and Denies heat intolerance Pete/Lymph Denies easy bruising Aller/Immun Denies itchy eyes, Denies seasonal rhinorrhea and Denies wheezing Physical Exam Vital Signs: Last Vital Signs Pulse 78 10/17/23 10:15 BP 132/74 10/17/23 10:15 Pulse Ox 99 10/17/23 10:15 Oxygen Delivery Method Room Air 10/17/23 10:15 BMI result Body Mass Index 34.3 Const General: no acute distress and alert Nutritional Appearance: not obese Orientation/consciousness: Other orientation findings ( oriented) HEENT Head: Yes atraumatic Eyes General: appearance normal, both eyes and all related structures Sclerae: sclerae normal EOM: EOMs intact bilaterally Neck Neck: Yes supple Lymphatic: no lymphadenopathy noted Resp Effort & Inspection: normal respiratory effort and no use of accessory muscles Auscultation: clear to auscultation bilaterally Cardio Rate: regular rate Rhythm: regular rhythm Heart sounds: no gallops, no murmurs and no rubs Skin General skin exam: other ( warm) Extrem General: No clubbing, No cyanosis and No edema Assessment & Plan Assessment & Plan (1) Asthma-COPD overlap syndrome: Code(s): J44.9 - Chronic obstructive pulmonary disease, unspecified Plan: baseline controlled on trilogy and albuterol MDI. Continue current regimen. Now with bronchitic exacerbation, will treat with a course of Levaquin. Will obtain chest x-ray. Codeine syrup for symptomatic relief. (2) Pulmonary nodules: Code(s): R91.8 - Other nonspecific abnormal finding of lung field Plan: Follow-up CT chest pending for November of 2023. Orders: Orders XR chest 1V Today J44.9 - Chronic obstructive pulmonary disease, unspecified Medications: New codeine-guaifenesin 10-100 mg/5 mL 10 mL PO Q4-6H PRN 473 mL 0RF flu symptoms 15 days levofloxacin 750 mg PO DAILY 7 tabs 0RF Coding Level of Care Code Est Pt Level 4 (87405) Diagnoses Asthma-COPD overlap syndrome J44.9 Pulmonary nodules R91.8
== END 2023-10-17 10:41 | disposition home or self-care (01) ==
PROVIDERS: PCP Internal Medicine Geriatric Medicine; Visit Provider Internal Medicine Pulmonary Disease
DX: J44.9 Chronic obstructive pulmonary disease, unspecified (principal); R91.8 Other nonspecific abnormal finding of lung field
CPT/HCPCS: 99214

== ENCOUNTER 2024-01-03 15:21 | Outpatient (REF) | payer MEDICARE, MEDICAID, SELFPAY ==
--- NOTE | ~2024-01-03 | XR_ITS ---
EXAMINATION: XR lumbar spine 2-3V CLINICAL INFORMATION: Reason for Exam worsening pain COMPARISON: Lumbar spine radiographs 08/25/2021 TECHNIQUE: 3 views of the lumbar spine FINDINGS: There are 6 nonrib-bearing lumbar-type vertebral bodies with lumbarization of S1. The last well-formed disc space will be referred to as S1-S2. Vertebral body heights are maintained. Grade 1 anterolisthesis of L5 on S1, similar to prior study. Moderate multilevel degenerative disc disease with loss of disc space height, facet arthropathy and disc osteophyte complexes. This is worst at L5/S1. Atherosclerosis of the abdominal aorta. Right upper quadrant cholecystectomy clips. XR/XR lumbar spine 2-3V IMPRESSION: * Moderate spondylosis of the lumbar spine, as above detailed. * Similar appearance of grade 1 anterolisthesis of L5 on S1.
== END 2024-01-03 15:22 | disposition home or self-care (01) ==
LOC: HO.HHCX 15:21
PROVIDERS: Visit Provider Internal Medicine
DX: M54.16 Radiculopathy, lumbar region (principal)
CPT/HCPCS: 72100

== ENCOUNTER 2024-02-06 12:38 | Outpatient (REF) | payer MEDICARE, MEDICAID, SELFPAY ==
[2024-02-06 13:00] LABS: MANUAL DIFF FLAG NO
[2024-02-06 13:21] LABS: Basophils Absolute Auto 0.1 X10*3/uL (0.0-0.2); Basophils Percent Auto 1.2 % (0-2); Eosinophils Absolute Auto 0.1 X10*3/uL (0.0-0.4); Eosinophils Percent Auto 1.5 % (0-4); Hematocrit 35.5 % (37.0-47.0); Hemoglobin 11.7 g/dl (12.0-16.0); Imm Gran Abs Auto 0.03 X10*3/uL (0.00-0.03); Imm Gran Pct Auto 0.5 % (0.0-0.4); Lymphocytes Absolute Auto 2.6 X10*3/uL (1.2-4.9); Mean Corpuscular Hemoglobin 30.5 pg (27.0-33.0); Mean Corpuscular Volume 92.4 fL (80.0-98.0); Monocytes Absolute Auto 0.5 X10*3/uL (0.1-1.2); Monocytes Percent Auto 7.7 % (2-11); Neutrophils Absolute Auto 3.2 x10*3/uL (2.0-8.3); Neutrophils Percent Auto 49.1 % (45-73); Platelet Count 227 X10*3/uL (160-400); Red Blood Count 3.84 X10*6/uL (4.20-5.50); Red Cell Distribution Width 13.3 % (11.0-16.0); White Blood Count 6.5 X10*3/uL (4.8-10.8)
[2024-02-06 14:04] LABS: Alanine Aminotransferase 13 U/L (0-31); Albumin Level 4.4 g/dL (3.5-5.0); Alkaline Phosphatase 70 U/L (39-117); Anion Gap 12 (12-20); Aspartate Amino Transferase 18 U/L (5-31); Bilirubin Total 0.2 mg/dL (0.0-1.0); Blood Urea Nitrogen 21 mg/dL (9-16); Calcium 9.5 mg/dL (8.4-10.2); Carbon Dioxide 23 mmol/L (22-29); Chloride 111 mmol/L (96-108); Cholesterol 213 mg/dL (<200); Estimated Glomerular Filt Rate > 60; Glucose Random 75 mg/dL (60-115); HDL Cholesterol 66 mg/dL (>40); LDL Cholesterol Calculated 126 mg/dL (<100); Potassium 4.1 mmol/L (3.3-5.1); Sodium 142 mmol/L (135-145); Total Protein 7.2 g/dL (6.5-8.0); Triglycerides 106 mg/dL (<150)
== END 2024-02-06 12:39 | disposition home or self-care (01) ==
LOC: HO.LAB 12:38
PROVIDERS: PCP Internal Medicine Geriatric Medicine; Visit Provider Internal Medicine Geriatric Medicine
DX: I10 Essential (primary) hypertension (principal); E11.9 Type 2 diabetes mellitus without complications
CPT/HCPCS: 36415; 80053; 80061; 85025

== ENCOUNTER 2024-05-10 12:17 | Outpatient (REF) | payer OTHER, SELFPAY ==
--- NOTE | ~2024-05-10 | MR_ITS ---
MRI OF THE LUMBAR SPINE WITHOUT CONTRAST CLINICAL INFORMATION: Radiculopathy. COMPARISON: Lumbar spine radiographs January 03, 2024.. TECHNIQUE: Multiplanar multisequence MR imaging of the lumbar spine obtained without contrast. FINDINGS: There is transitional anatomy. For the purposes of this report there are hypoplastic ribs at the lowermost thoracic type segment and L5 is sacralized, sharing a nearly completely developed intervertebral disc with S1 and sharing left greater than right pseudoarticulations with the sacrum. Please correlate with plain films prior to any percutaneous or surgical intervention. There is grade 2 degenerative anterolisthesis of L4 on L5. The vertebral body heights are maintained. There is an intraosseous hemangioma within the L1 vertebral body. There Modic type I endplate signal changes at L2-L3. Multilevel endplate osteophytes. Conus terminates at the upper L2 level. There are no significant extraspinal soft tissue findings. T12-L1: There is a superiorly migrating right paracentral disc extrusion that mildly indents the right ventral thecal sac without compressing the traversing right nerve root. Background annular disc bulge. Mild central canal stenosis and mild right-sided foraminal encroachment. L1-L2: There is a diffuse annular disc bulge and there is moderate bilateral facet arthropathy. No central canal stenosis. No foraminal stenosis. L2-L3: Diffuse annular disc bulge and severe right and moderate left facet arthropathy and ligamentum flavum thickening. Epidural lipomatosis. Findings in concert result in moderate to severe central canal stenosis, significant right subarticular zone stenosis with mass effect on the traversing right L3 nerve root, and severe right-sided foraminal stenosis with compression of the foraminal and extraforaminal segments of the exiting right L2 nerve root. L3-L4: There is a left paracentral disc protrusion that compresses the traversing left L4 nerve root within the left subarticular zone. Background annular disc bulge and severe bilateral facet arthropathy and ligamentum flavum thickening. Right lateral disc osteophyte and advanced facet arthropathy result in moderate to severe right foraminal stenosis with mass effect on the exiting right L3 nerve root. L4-L5: There is grade 2 degenerative anterolisthesis that along with uncovered disc osteophyte and severe bilateral facet arthropathy and ligamentum flavum thickening result in severe central canal stenosis as well as moderate to severe left and moderate right foraminal stenosis with compression of the exiting left L4 nerve root. L5-S1: At the transitional level, there is a diffuse disc osteophyte complex. Advanced hypertrophic degenerative changes across the left L5-S1 pseudoarticulation result in mass effect on the exiting left L5 nerve root as well as the overlying extraforaminal left L4 nerve root. MR/MR lumbar spine wo con IMPRESSION: * There is transitional anatomy. For the purposes of this report there are hypoplastic ribs at the lowermost thoracic type segment and L5 is sacralized, sharing a nearly completely developed intervertebral disc with S1 and sharing left greater than right pseudoarticulations with the sacrum. Please correlate with plain films prior to any percutaneous or surgical intervention. * At T12-L1, a superiorly migrating right paracentral disc extrusion mildly narrows the central canal on the right side. * At L2-L3, advanced multifactorial degenerative changes result in moderate to severe central canal stenosis, significant right subarticular zone stenosis with mass effect on the traversing right L3 nerve root, and severe right-sided foraminal stenosis with compression of the foraminal and extraforaminal segments of the exiting right L2 nerve root. * At L3-L4, a left paracentral disc protrusion compresses the traversing left L4 nerve root within the left subarticular zone and multifactorial degenerative changes result in moderate to severe right foraminal stenosis with mass effect on the exiting right L3 nerve root. * At L4-L5, grade 2 degenerative anterolisthesis and advanced multifactorial degenerative changes result in severe central canal stenosis as well as moderate to severe left and moderate right foraminal stenosis with compression of the exiting left L4 nerve root. * At the L5-S1 transitional level, advanced hypertrophic degenerative changes across the left L5-S1 pseudoarticulation result in mass effect on the exiting left L5 nerve root as well as the overlying extraforaminal left L4 nerve root.
== END 2024-05-10 12:18 | disposition home or self-care (01) ==
LOC: HO.MRI 12:17
PROVIDERS: PCP Internal Medicine Geriatric Medicine; Visit Provider Internal Medicine Geriatric Medicine
DX: M54.16 Radiculopathy, lumbar region (principal); M54.41 Lumbago with sciatica, right side; M54.42 Lumbago with sciatica, left side; G89.29 Other chronic pain
CPT/HCPCS: 72148

== ENCOUNTER 2024-05-16 13:20 | Outpatient (REF) | payer OTHER, SELFPAY ==
--- NOTE | ~2024-05-16 | XR_ITS ---
EXAMINATION: XR SHOULDER, RIGHT CLINICAL INFORMATION: Weakness COMPARISON: None available. TECHNIQUE: AP external rotation, Grashey, scapular Y, and axillary views of the right shoulder. FINDINGS: Moderate-severe glenohumeral joint arthritis, joint space loss, osteophytes. Mild acromioclavicular arthritis. No acute fracture or dislocation. No abnormal soft tissue calcification. XR/XR shoulder RT min 2V IMPRESSION: Moderate-severe glenohumeral joint arthritis. Mild acromioclavicular arthritis.
== END 2024-05-16 13:21 | disposition home or self-care (01) ==
LOC: HO.HHCX 13:20
PROVIDERS: Visit Provider Internal Medicine Geriatric Medicine
DX: R29.898 Other symptoms and signs involving the musculoskeletal system (principal)
CPT/HCPCS: 73030

== ENCOUNTER 2024-07-04 10:10 | Outpatient (AMB) | payer OTHER, SELFPAY ==
--- NOTE | 2024-07-04 09:33 | HO.SPINEOV ---
Intake Visit Reasons: LBP Intake Note: Ms. Lord is here today c/o low back pain difficulty walking. Palliative Nurse Required: No Allergies alendronate sodium [From FOSAMAX] Allergy (Mild, Verified 10/17/23 10:21) HIVES atorvastatin [Lipitor] Allergy (Unknown, Verified 10/17/23 10:21) Hives Assessment & Plan Assessment & Plan (1) Spondylolisthesis: Code(s): M43.10 - Spondylolisthesis, site unspecified Category: Medical Plan Dear Dr. Hastings, Thank you for referring Juana to our office today. She is a pleasant 64 y/o female who comes in today with a chief complaint of low back pain with shooting pains down her bilateral lower extremities. She states that she has had back pain for the last 30 years, but over the course of the last 4-5 years it has became much worse. When describing the shooting pains down her legs she runs her hands over her hips, down the lateral aspect of her bilateral thighs, to the sides of her knees. She states on the left this shooting pain continues down near her lateral gastrocnemiuus. She denies any numbness/tingling associated with this pain. She reports she has been to physical therapy for this pain, had several cortisone injections completed at [facility] for this pain, and has tried several rmbv-joz-ytebsvi medications including Tylenol, ibuprofen, and lidocaine. She is also currently on prescription medications to help manage this pain. She is concerned as the pain is limiting her ability to complete ADLs and causing her to stop after walking 10-20 feet so she can rest. She reports that she still goes to the grocery store / shopping but has to use an electric scooter cart to get around. PMH: Hyperlipidemia, hypertension, osteopenia, optic neuritis, unspecified depressive disorder, osteoarthritis, asthma, COPD, glaucoma, migraines, type 2 diabetes, colonic polyps, pulmonary nodules, hypothyroidism, GERD, seasonal allergies, opiate dependence, carpal tunnel syndrome, diverticulosis, stage 3 chronic kidney disease, history of bilateral knee replacement. Social hx: The patient reports daily cannabis use, but denies all other smoking/substance use. Medications: Amlodipine, cyclobenzaprine, diclofenac gel, fluticasone, ibuprofen, lidocaine patches, omeprazole, sumatriptan, albuterol, clonazepam, codeine-guaifenesin, montelukast, Percocet, prednisone, Lyrica, senna, trelegy, venlafaxine, Ambien. Allergies: Alendronate, atorvastatin. Physical exam: The patient has 3/5 strength with left-sided knee flexion, 4/5 strength with right-sided knee flexion, and 5/5 strength elsewhere. Her patella and Achilles reflexes are absent. Her the brachioradialis and biceps reflexes are 1+ hypoactive. Her triceps reflex is 2+ intact. She ambulates fairly well, but does hunch over when she walks, and is notably kyphotic. She is able to rise from a seated position with the assistance of a chair, and can climb up to the exam table on her own. (-) Baez's, (-) clonus, (-) bilateral straight leg raise. Imaging review: MRI of the lumbar spine completed here at [facility] on May 10 of this year shows several different lumbar pathologies. The patient has a T12-L1 disc herniation, extending up the posterior edge of T12. This appears only to be causing mild compression of the traversing right-sided L1 nerve root. The central canal appears patent. There is a notable grade 2 spondylolisthesis at L4-5 causing severe central canal and bilateral foraminal stenosis at this level. There is moderate central canal and bilateral foraminal stenosis at L2-3, and L3-4. Impression: Juana is a pleasant 64-year-old female who comes in today with a chief complaint of low back pain with shooting pains into her bilateral lower extremities. As stated above she has several different forms of pathology shown on her MRI imaging. The dermatomal distribution of her pain most closely resembles the L5 nerve root. I believe that her back pain and radiculopathy are most likely coming from the grade 2 L4-5 spondylolisthesis. I would like to obtain her injection records from [facility] to see if any previous conservative treatment has been successful. I will review her imaging with the attending neurosurgeon Dr. Mack after I obtain these records so we can work to come up with a good plan for Juana. Thank you for allowing us to care for your patient. The total time spent with this visit with this patient was 60 minutes reviewing history, physical exam, MRI imaging review, and implementation of treatment plan or further diagnostic testing Joe Mack MD,PhD [facility] Coding Level of Care Code New Pt Level 5 (04373) Diagnoses Spondylolisthesis M43.10
== END 2024-07-04 10:38 | disposition home or self-care (01) ==
PROVIDERS: PCP Internal Medicine Geriatric Medicine; Referring Provider Internal Medicine Geriatric Medicine; Visit Provider Physician Assistant
DX: M43.10 Spondylolisthesis, site unspecified (principal)
CPT/HCPCS: 99205

== ENCOUNTER → 2024-07-04 10:10 | Outpatient (BNVA) | payer OTHER, SELFPAY | PROVIDERS: PCP Internal Medicine Geriatric Medicine; Visit Provider Physician Assistant | DX: M43.10 Spondylolisthesis, site unspecified (principal) | CPT/HCPCS: 99202 ==

== ENCOUNTER 2024-07-10 08:48 | Outpatient (REF) | payer OTHER, SELFPAY ==
--- NOTE | ~2024-07-10 | CT_ITS ---
EXAMINATION: CT CHEST WITHOUT CONTRAST CLINICAL INFORMATION: Abnormal lung finding. COMPARISON: 11/16/2022 TECHNIQUE: Multidetector volumetric CT imaging of the chest was done. Axial MIP volume rendering provided. Sagittal and coronal reformatted images were obtained. This CT examination was performed using dose optimization techniques as appropriate, variously including the following: *Automated exposure control *Adjustment of mA and/or kV according to patient size (this includes techniques or standardized protocols for targeted exams where dose is matched to indication/reason for exam; i.e. extremities or head) *Use of iterative reconstruction technique DLP: 136 mGy-cm FINDINGS: LUNGS: Left lower lobe 3 mm nodule is unchanged (5:262). Left lower lobe subpleural 4 mm nodule is unchanged (5:368). Right middle lobe 3 mm nodule is unchanged (5:243). Right middle lobe 3 mm nodule is unchanged (5:282). No new or enlarging pulmonary nodule previously seen left lower lobe 7 mm nodule has resolved suggestive of resolved mucoid impaction. PLEURA: No pleural effusion. MEDIASTINUM: No cardiomegaly. Aorta and pulmonary artery are normal in caliber. No mediastinal adenopathy. Lack of IV contrast was evaluation for hilar adenopathy. CORONARY ARTERY CALCIFICATION: No coronary artery calcification appreciated. CHEST WALL/AXILLA: No axillary or internal mammary lymphadenopathy. UPPER ABDOMEN: Status post cholecystectomy. Postsurgical changes of the stomach. OSSEOUS STRUCTURES: Degenerative changes of the spine. CT/CT chest wo IV con IMPRESSION: Bilateral pulmonary nodules measuring up to 4 mm are unchanged. No new or enlarging pulmonary according to the Fleischner Society guidelines, these nodules are favored to be benign. Electronically signed by: Ira Billy MD 07/30/2024 02:55 PM EDT
== END 2024-07-10 08:49 | disposition home or self-care (01) ==
LOC: HO.CT 08:48
PROVIDERS: PCP Internal Medicine Geriatric Medicine; Visit Provider Internal Medicine Pulmonary Disease
DX: R91.8 Other nonspecific abnormal finding of lung field (principal)
CPT/HCPCS: 71250

== ENCOUNTER 2024-07-30 11:36 | Outpatient (REF) | payer OTHER, SELFPAY ==
[2024-07-30 16:27] LABS: Estimated Average Glucose 100 mg/dL; Hemoglobin A1c % 5.1 % (<6.0); Total Hemoglobin (HGBA1C) 3312.2361 umol/L
== END 2024-07-30 11:37 | disposition home or self-care (01) ==
LOC: HO.CHCLDS 11:36
PROVIDERS: Visit Provider Internal Medicine Geriatric Medicine
DX: E11.9 Type 2 diabetes mellitus without complications (principal)
CPT/HCPCS: 36415; 83036

== ENCOUNTER 2024-08-07 10:45 | Outpatient (AMB) | payer OTHER, SELFPAY ==
[2024-08-07 10:51] VITALS: BP 134/82; PULSE 81; O2SAT 100; BMI 35.7
--- NOTE | 2024-08-07 10:51 | MHC.OFFVIS ---
Vital Signs 08/07/24 10:51 Height 4 ft 9 in Weight 165 lb BMI 35.7 BP 134/82 Blood Pressure Location Rt brachial Position Sitting Pulse 81 Pulse Source Doppler Pulse Oximetry (%) 100 Oxygen Delivery Method Room Air Intake Visit Reasons: Pulm Nodules/CT Follow Up Allergies alendronate sodium [From FOSAMAX] Allergy (Mild, Verified 10/17/23 10:21) HIVES atorvastatin [Lipitor] Allergy (Unknown, Verified 10/17/23 10:21) Hives HPI HPI Pulm Nodules/CT Follow Up: Details: 64-year-old lady, former 35 pack years smoker, now uses marijuana, quit tobacco 2011, followed for pulmonary nodules and? asthma/COPD.? She has been using Treley and albuterol MDI with slowly worsening control of her underlying symptoms. She denies acute exacerbations. Patient is planning to have back surgery for back pain. [facility] Medical History Arthritis Asthma BMI 36.0-36.9,adult BMI 37.0-37.9, adult Depression Diverticulosis Fibromyalgia Insomnia Migraines Morbid obesity due to excess calories Personal history of solitary pulmonary nodule Sleep apnea Tubular adenoma Type 2 diabetes mellitus Surgical History History of bilateral carpal tunnel release History of foot surgery History of right cataract surgery History of sleeve gastrectomy Hx laparoscopic cholecystectomy Hx of colonoscopy Family History Father No problems noted. Mother Diabetes Brother No problems noted. Brother No problems noted. Brother No problems noted. Sister No problems noted. Sister No problems noted. Sister No problems noted. Daughter No problems noted. Social History Alcohol intake: never Patient Tobacco Use Status: Former Tobacco user Substance Use Type: Marijuana Review of Systems Const Denies daytime sleepiness, Denies excessive sweating, Denies fatigue, Denies fever(s), Denies lethargy, Denies malaise, Denies night sweats, Denies snoring and Denies weight loss Eyes Denies blurry vision and Denies itchy eyes ENT Denies nasal congestion, Denies post nasal drip, Denies sinus pain, Denies sinus pressure and Denies other ( Thrush) Card Denies chest pain, Denies pedal edema, Denies dyspnea, Denies orthopnea and Denies paroxysmal nocturnal dyspnea Resp Denies cough, Denies hemoptysis, Denies excessive phlegm production, Denies dyspnea, Denies snoring and Denies wheezing GI Denies abdominal pain and Denies heartburn Musc Reports back pain, Denies myalgias, Denies arthralgias and Denies joint swelling Skin/Breast Denies rash Neuro Denies memory loss and Denies seizure-like activity Psych Denies abnormal sleep pattern, Denies anxiety and Denies memory loss Endo Denies excessive sweating, Denies fatigue and Denies heat intolerance Pete/Lymph Denies easy bruising Aller/Immun Denies itchy eyes, Denies seasonal rhinorrhea and Denies wheezing Physical Exam Vital Signs: Last Vital Signs Pulse 81 08/07/24 10:51 BP 134/82 08/07/24 10:51 Pulse Ox 100 08/07/24 10:51 Oxygen Delivery Method Room Air 08/07/24 10:51 BMI result Body Mass Index 35.7 Const General: no acute distress and alert Nutritional Appearance: obese Orientation/consciousness: Other orientation findings ( oriented) HEENT Head: Yes atraumatic Eyes General: appearance normal, both eyes and all related structures Sclerae: sclerae normal EOM: EOMs intact bilaterally Neck Neck: Yes supple Lymphatic: no lymphadenopathy noted Resp Effort & Inspection: normal respiratory effort and no use of accessory muscles Auscultation: clear to auscultation bilaterally Cardio Rate: regular rate Rhythm: regular rhythm Heart sounds: no gallops, no murmurs and no rubs Skin General skin exam: other ( warm) Extrem General: No clubbing, No cyanosis and No edema Assessment & Plan Assessment & Plan (1) Asthma-COPD overlap syndrome: Code(s): J44.9 - Chronic obstructive pulmonary disease, unspecified Category: Medical Plan: Suboptimal control on Trelegy and albuterol MDI. Will add theophylline. (2) Pulmonary nodules: Code(s): R91.8 - Other nonspecific abnormal finding of lung field Category: Medical Plan: Results CT chest reviewed, stable pulmonary nodules, continue with yearly screening, next in July of 2025. Orders: Orders CT lung screening 07/08/25 Z87.891 - Personal history of nicotine dependence Medications: New theophylline ER 400 mg PO DAILY 30 tabs 6RF Coding Level of Care Code Est Pt Level 4 (04580) Diagnoses Asthma-COPD overlap syndrome J44.9 Pulmonary nodules R91.8
== END 2024-08-07 11:10 | disposition home or self-care (01) ==
PROVIDERS: PCP Internal Medicine Geriatric Medicine; Visit Provider Internal Medicine Pulmonary Disease
DX: J44.9 Chronic obstructive pulmonary disease, unspecified (principal); R91.8 Other nonspecific abnormal finding of lung field
CPT/HCPCS: 99214

== ENCOUNTER → 2024-08-07 10:45 | Outpatient (BNVA) | payer OTHER, SELFPAY | PROVIDERS: PCP Internal Medicine Geriatric Medicine; Visit Provider Internal Medicine Pulmonary Disease | DX: J44.9 Chronic obstructive pulmonary disease, unspecified (principal); R91.8 Other nonspecific abnormal finding of lung field | CPT/HCPCS: 99212 ==

== ENCOUNTER 2024-08-23 16:14 | Outpatient (REF) | payer OTHER, SELFPAY | END 2024-08-23 16:15 | disposition home or self-care (01) | LOC: HO.HHCLNP 16:14 | PROVIDERS: Visit Provider Internal Medicine Geriatric Medicine | DX: Z13.89 Encounter for screening for other disorder (principal) | CPT/HCPCS: 81001 ==

== ENCOUNTER 2024-09-30 16:05 | Outpatient (REF) | payer OTHER, SELFPAY ==
[2024-09-30 17:48] LABS: MANUAL DIFF FLAG NO
[2024-09-30 18:36] LABS: Basophils Percent Auto 0.7 % (0-2); Eosinophils Absolute Auto 0.1 X10*3/uL (0.0-0.4); Eosinophils Percent Auto 2.1 % (0-4); Hematocrit 35.3 % (37.0-47.0); Hemoglobin 11.7 g/dl (12.0-16.0); Imm Gran Abs Auto 0.03 X10*3/uL (0.00-0.03); Imm Gran Pct Auto 0.5 % (0.0-0.4); Lymphocytes Percent Auto 34.4 % (20-40); Mean Corpuscular HGB Conc 33.1 g/dl (31.0-35.0); Mean Corpuscular Hemoglobin 30.8 pg (27.0-33.0); Mean Corpuscular Volume 92.9 fL (80.0-98.0); Mean Platelet Volume 10.7 fL (9.4-12.3); Monocytes Absolute Auto 0.5 X10*3/uL (0.1-1.2); Monocytes Percent Auto 8.2 % (2-11); Neutrophils Absolute Auto 3.1 x10*3/uL (2.0-8.3); Neutrophils Percent Auto 54.1 % (45-73); Platelet Count 227 X10*3/uL (160-400); Red Cell Distribution Width 13.7 % (11.0-16.0); White Blood Count 5.7 X10*3/uL (4.8-10.8)
[2024-09-30 18:59] LABS: Alanine Aminotransferase 37 U/L (0-31); Albumin Level 4.3 g/dL (3.5-5.0); Alkaline Phosphatase 88 U/L (39-117); Anion Gap 14 (12-20); Aspartate Amino Transferase 32 U/L (5-31); Bilirubin Direct 0.1 mg/dL (0.0-0.5); Bilirubin Total 0.3 mg/dL (0.0-1.0); Blood Urea Nitrogen 14 mg/dL (9-16); Calcium 9.4 mg/dL (8.4-10.2); Carbon Dioxide 21 mmol/L (22-29); Chloride 110 mmol/L (96-108); Estimated Glomerular Filt Rate > 60; Glucose Random 72 mg/dL (60-115); Sodium 141 mmol/L (135-145)
== END 2024-09-30 16:06 | disposition home or self-care (01) ==
LOC: HO.HHCL 16:05
PROVIDERS: Visit Provider Internal Medicine
DX: G43.909 Migraine, unspecified, not intractable, without status migrainosus (principal); M54.16 Radiculopathy, lumbar region; W10.8XXA Fall (on) (from) other stairs and steps, initial encounter
CPT/HCPCS: 36415; 80048; 80076; 82550; 85025

== ENCOUNTER 2024-10-14 18:02 | Outpatient (REF) | payer OTHER, SELFPAY ==
[2024-10-15 10:51] LABS: Bacterial Vaginosis PCR NEGATIVE (Negative); Candida Group PCR NOT DETECTED (Not Detect); Candida glab krusei PCR NOT DETECTED (Not Detect); Trichomonas vaginalis PCR NOT DETECTED (Not Detect)
--- OUTSIDE RECORDS SUMMARY | 2024-10-16 18:08 | XMS_ITS | Clinical Summary ---
Author Organization Unknown Care Team Providers Care Systems Accountant Name Role Phone NAME HERON FARLEY Unavailable Unavailable JOANNE RABAGO, KAMRAN Unavailable Unavailable Payers Payer Name Policy Type Policy Number Effective Date Expira tion Date MEDICARE - [place] - [place] [id number] MEDICAID [facility] [id number] Problems Condition Name Condition Details Condition Category Status Onset Date Resolution Date Last Treatment Date Treating Clinician Comments ESSENTIAL (PRIMARY) HYPERTENSION Active 03-03 00:00: 00 MAJOR DEPRESSIVE DISORDER, SINGLE EPISODE, UNSPECIFIED Active 03-03 00:00: 00 REPEATED FALLS Active 03-03 00:00: 00 CHRONIC OBSTRUCTIVE PULMONARY DISEASE, UNSPECIFIED Active 11-06 00:00: 00 TYPE 2 DIABETES MELLITUS WITHOUT COMPLICATION S Active 11-06 00:00: 00 ANXIETY DISORDER, UNSPECIFIED Active 11-06 00:00: 00 FIBROMYALGIA Active 11-06 00:00: 00 DISORDER OF KIDNEY AND URETER, UNSPECIFIED Active 03-03 00:00: 00 HISTORY OF FALLING Active 03-05 00:00: 00 HYPERTENSIVE HEART DISEASE WITHOUT HEART FAILURE Active 03-03 00:00: 00 Allergies, Adverse Reactions, Alerts Allergy Name Allergy Type Status Severity Reaction(s) Onset Date Inactive Date Treating Clinician Comments ASPIRIN Propensity to adverse reactions Active 03-05 14:01: 38 ATORVASTATIN Propensity to adverse reactions Active 03-05 14:01: 46 ALENDRONATE Propensity to adverse reactions Active 03-05 14:01: 54 Medications Ordered Medication Name Filled Medication Name Start Date Stop Date Current Medication? Ordering Clinician Indication Dosage Frequency Signature (SIG) Comments Components lidocaine 5 % topical patch 02-09 00:00: 00 05-22 23:59 :00 No [id number] Per instruc tions EVERY 12 HOURS FOR NO MORE THAN 1 2 HOURS Per instructio ns EVERY 12 HOURS FOR NO MORE THAN 1 2 HOURS (route: topical) Med Classific ation: Dermatolo gical ammonium lactate 12 % topical cream -14 00:00: 00 05-22 23:59 :00 No [id number] Per instruc tions AREAS TWICE DAILY Per instructio ns AREAS TWICE DAILY (route: topical) Med Classific ation: Dermatolo gical Breo Ellipta 100 mcg-25 mcg/dose powder for inhalation -10 00:00: 00 05-22 23:59 :00 No [id number] Per instruc tions 1 INHALATION DAILY Per instructio ns 1 INHALATION DAILY (route: inhalation ) Med Classific ation: Respirato ry Therapy Agents Incruse Ellipta 62.5 mcg/actuati on powder for inhalation 03-01 00:00: 00 05-22 23:59 :00 No [id number] 1 inhalat ion DAILY 1 inhalation DAILY (route: inhalation ) Med Classific ation: Respirato ry Therapy Agents Combivent Respimat 20 mcg-100 mcg/actuati on solution for inhalation 02-20 00:00: 00 05-22 23:59 :00 No [id number] 1 puff DAILY 1 puff DAILY (route: inhalation ) Med Classific ation: Respirato ry Therapy Agents Klor-Con M20 mEq tablet,exte nded release 30 00:00: 00 03-10 23:59 :00 No [id number] 1 tablet DAILY 1 tablet DAILY (route: oral) Med Classific ation: Electroly te Balance-N utritiona l Products baclofen 10 mg tablet 15 00:00: 00 05-22 23:59 :00 No [id number] Per instruc tions 2 TIMES EVERY DAY NEEDED Per instructio ns 2 TIMES EVERY DAY NEEDED (route: oral) Med Classific ation: Locomotor System phentermine 37.5 mg capsule 4-11 00:00: 00 05-22 23:59 :00 No [id number] Per instruc tions EVERY DAY 30 MINS BEFORE OR 1 2 HOURS Per instructio ns EVERY DAY 30 MINS BEFORE OR 1 2 HOURS (route: oral) Med Classific ation: Eating Disorder Therapy zolpidem 10 mg tablet 4-05 00:00: 00 05-22 23:59 :00 No [id number] Per instruc tions EVERY DAY AT BEDTIME NEEDED Per instructio ns EVERY DAY AT BEDTIME NEEDED (route: oral) Med Classific ation: Central Nervous System Agents pregabalin 225 mg capsule 4-16 00:00: 00 05-22 23:59 :00 No [id number] Per instruc tions TWICE A DAY Per instructio ns TWICE A DAY (route: oral) Med Classific ation: Central Nervous System Agents sumatriptan 100 mg tablet - 00:00: 00 05-22 23:59 :00 No [id number] 1 tablet DIRECTED 1 tablet DIRECTED (route: oral) Med Classific ation: Central Nervous System Agents montelukast 10 mg tablet 2-16 00:00: 00 05-22 23:59 :00 No [id number] Per instruc tions EVERY DAY Per instructio ns EVERY DAY (route: oral) Med Classific ation: Respirato ry Therapy Agents losartan 50 mg-hydrochl orothiazide 12.5 mg tablet 2-22 00:00: 00 03-05 00:00 :00 No [id number] Per instruc tions EVERY DAY Per instructio ns EVERY DAY (route: oral) Med Classific ation: Cardiovas cular Therapy Agents venlafaxine ER 150 mg capsule,ext ended release 24 hr 4-14 00:00: 00 05-22 23:59 :00 No [id number] Per instruc tions EVERY DAY Per instructio ns EVERY DAY (route: oral) Med Classific ation: Central Nervous System Agents meloxicam 15 mg tablet 3-03 00:00: 00 05-22 23:59 :00 No [id number] Per instruc tions EVERY OTHER DAY Per instructio ns EVERY OTHER DAY (route: oral) Med Classific ation: Analgesic , Anti-infl ammatory or Antipyret ic atorvastati n 20 mg tablet 2- 00:00: 00 05-22 23:59 :00 No [id number] Per instruc tions EVERY DAY Per instructio ns EVERY DAY (route: oral) Med Classific ation: Cardiovas cular Therapy Agents amitriptyli ne 50 mg tablet 02-08 00:00: 00 05-22 23:59 :00 No [id number] Per instruc tions AT BEDTIME Per instructio ns AT BEDTIME (route: oral) Med Classific ation: Central Nervous System Agents losartan 50 mg-hydrochl orothiazide 12.5 mg tablet 03-04 00:00: 00 05-22 23:59 :00 No [id number] 1 tablet DAILY 1 tablet DAILY (route: oral) Med Classific ation: Cardiovas cular Therapy Agents topiramate 100 mg tablet 03-05 00:00: 00 05-22 23:59 :00 No [id number] 1 tablet DAILY 1 tablet DAILY (route: oral) Med Classific ation: Central Nervous System Agents Immunizations Ordered Immunization Name Filled Immunization Name Date Status Comments Refusal Reason PNEUMOCOCCAL (PPV), PPV 2021-03-05 00:00:00 Vital Signs Vital Name Observation Time Observation Value Commen ts Temperature 2021-04-27 16:13:33.000 98.2 [degF] Temperature 2021-04-20 09:42:07.000 97.6 [degF] Temperature 2021-04-16 11:35:15.000 97 [degF] Temperature 2021-04-06 11:01:21.000 97.9 [degF] Temperature 2021-03-31 09:59:29.000 96.8 [degF] Temperature 2021-03-23 13:10:32.000 97 [degF] Temperature 2021-03-16 11:29:04.000 97.4 [degF] Temperature 2021-03-09 13:01:59.000 97.7 [degF] Temperature 2021-03-05 13:34:08.000 98.6 [degF] Height 2021-03-05 13:35:19.000 56 [in_us] Pulse 2021-04-27 16:13:43.000 80 /min Pulse 2021-04-20 09:42:18.000 88 /min Pulse 2021-04-16 11:36:00.000 85 /min Pulse 2021-04-06 11:01:40.000 68 /min Pulse 2021-04-01 12:16:55.000 76 /min Pulse 2021-03-31 10:00:15.000 70 /min Pulse 2021-03-25 12:14:07.000 80 /min Pulse 2021-03-23 13:11:24.000 69 /min Pulse 2021-03-16 11:29:12.000 88 /min Pulse 2021-03-15 11:25:00.000 86 /min Pulse 2021-03-10 11:50:00.000 84 /min Pulse 2021-03-09 13:02:07.000 82 /min Pulse 2021-03-05 13:34:15.000 93 /min O2 Saturation (%) 2021-04-27 16:14:14.000 97 % O2 Saturation (%) 2021-04-20 09:44:23.000 95 % O2 Saturation (%) 2021-04-16 11:36:35.000 97 % O2 Saturation (%) 2021-04-06 11:02:14.000 97 % O2 Saturation (%) 2021-04-01 12:17:09.000 98 % O2 Saturation (%) 2021-03-31 10:00:29.000 97 % O2 Saturation (%) 2021-03-25 12:14:27.000 98 % O2 Saturation (%) 2021-03-23 13:11:50.000 95 % O2 Saturation (%) 2021-03-16 11:29:36.000 98 % O2 Saturation (%) 2021-03-15 11:25:00.000 98 % O2 Saturation (%) 2021-03-10 11:50:00.000 98 % O2 Saturation (%) 2021-03-09 13:02:29.000 95 % O2 Saturation (%) 2021-03-05 13:34:38.000 98 % Respirations 2021-04-27 16:13:48.000 18 /min Respirations 2021-04-20 09:42:25.000 18 /min Respirations 2021-04-16 11:36:07.000 18 /min Respirations 2021-04-06 11:01:45.000 18 /min Respirations 2021-04-01 12:17:01.000 18 /min Respirations 2021-03-31 09:59:35.000 18 /min Respirations 2021-03-25 12:14:16.000 18 /min Respirations 2021-03-23 13:10:38.000 18 /min Respirations 2021-03-16 11:29:17.000 18 /min Respirations 2021-03-15 11:25:00.000 18 /min Respirations 2021-03-10 11:50:00.000 18 /min Respirations 2021-03-09 13:02:13.000 18 /min Respirations 2021-03-05 13:34:26.000 18 /min Weight (lbs) 2021-03-05 13:35:28.000 184 [lb_av] Systolic Blood Pressure 2021-04-27 16:13:59.000 110 mm [Hg] Systolic Blood Pressure 2021-04-20 09:44:09.000 140 mm [Hg] Systolic Blood Pressure 2021-04-16 11:36:22.000 128 mm [Hg] Systolic Blood Pressure 2021-04-06 11:02:02.000 112 mm [Hg] Systolic Blood Pressure 2021-03-31 10:00:06.000 128 mm [Hg] Systolic Blood Pressure 2021-03-23 13:11:06.000 102 mm [Hg] Systolic Blood Pressure 2021-03-16 11:29:28.000 100 mm [Hg] Systolic Blood Pressure 2021-03-09 13:02:21.000 120 mm [Hg] Systolic Blood Pressure 2021-03-05 13:40:16.000 118 mm [Hg] Diastolic Blood Pressure 2021-04-27 16:13:59.000 64 mm [Hg] Diastolic Blood Pressure 2021-04-20 09:44:09.000 82 mm [Hg] Diastolic Blood Pressure 2021-04-16 11:36:22.000 68 mm [Hg] Diastolic Blood Pressure 2021-04-06 11:02:02.000 70 mm [Hg] Diastolic Blood Pressure 2021-03-31 10:00:06.000 82 mm [Hg] Diastolic Blood Pressure 2021-03-23 13:11:06.000 70 mm [Hg] Diastolic Blood Pressure 2021-03-16 11:29:28.000 68 mm [Hg] Diastolic Blood Pressure 2021-03-09 13:02:21.000 70 mm [Hg] Diastolic Blood Pressure 2021-03-05 13:40:16.000 64 mm [Hg] Plan of Treatment Planned Activity Planned Date Details Comments Future Scheduled Test SKILLED NU RSE TO ASSESS/EVALUATE PATIENT, IDENTIFY PRIMARY AND CO-MORBID CONDITIONS, AND DEVELOP PATIENT SPECIFIC PLAN OF CARE THAT INCLUDES PATIENT GOAL FOR HOME HEALTH. [code = SKILLED NURSE TO ASSESS/EVALUATE PATIENT, IDENTIFY PRIMARY AND CO-MORBID CONDITIONS, AND DEVELOP PATIENT SPECIFIC PLAN OF CARE THAT INCLUDES PATIENT GOAL FOR HOME HEALTH.] Future Scheduled Test SKILLED NU RSE FOR O/A OF LOWER EXTREMITIES TO IDENTIFY CHANGES OR LESIONS ASSOCIATED WITH DIABETES MELLITUS FOR EARLY INTERVENTIONS OF COMPLICATIONS. SKILLED NURSE TO PROVIDE INSTRUCTION ON PROPER DIABETIC SKIN/FOOT CARE. [code = SKILLED NURSE FOR O/A OF LOWER EXTREMITIES TO IDENTIFY CHANGES OR LESIONS ASSOCIATED WITH DIABETES MELLITUS FOR EARLY INTERVENTIONS OF COMPLICATIONS. SKILLED NURSE TO PROVIDE INSTRUCTION ON PROPER DIABETIC SKIN/FOOT CARE.] Future Scheduled Test SKILLED NU RSE TO REVIEW PATIENT MEDICATIONS. INSTRUCT PATIENT/CAREGIVER ON MONITORING OF EFFECTIVENESS, ADVERSE DRUG REACTIONS, SIDE EFFECTS OF ALL MEDICATIONS (PRESCRIPTION/-OTC), AND HOW AND WHEN TO REPORT PROBLEMS. [code = SKILLED NURSE TO REVIEW PATIENT MEDICATIONS. INSTRUCT PATIENT/CAREGIVER ON MONITORING OF EFFECTIVENESS, ADVERSE DRUG REACTIONS, SIDE EFFECTS OF ALL MEDICATIONS (PRESCRIPTION/-OTC), AND HOW AND WHEN TO REPORT PROBLEMS.] Future Scheduled Test SKILLED NU RSE TO PERFORM HOME SAFETY AND FALL ASSESSMENT AND PROVIDE INSTRUCTION TO IMPLEMENT HOME SAFETY AND FALL PREVENTION STRATEGIES. [code = SKILLED NURSE TO PERFORM HOME SAFETY AND FALL ASSESSMENT AND PROVIDE INSTRUCTION TO IMPLEMENT HOME SAFETY AND FALL PREVENTION STRATEGIES.] Future Scheduled Test CLINICAL S AG CURRENT INTERVENTIONS TO BE PROVIDED AND FREQUENCY STATED ABOVE HISTORY/PRIOR TREATMENTS/RECENT HOSPITAL STAYS: PATIENT WAS BROUGHT TO [facility] MARCH 03 AFTER SHE LOST CONSCIOUSNESS AT HOME, HER LIFE ALERT ALERTED EMS WHO BROUGHT HER TO ER. PATIENT DIAGNOSED WITH HYPOKALEMIA. TREATED AND DISCHARGED HOME MARCH 04 PATIENT CURRENT PRESENTATION/ADHERENCE/REASON FOR REFERRAL: PATIENT ALERT ORIENTEDX3 COMPLAINTS OF PAIN TO BACK AND KNEES SOB ON EXERTION. POOR APPETITE. AMBULATING WITH WALKER. HAS CANTEEN MANAGER TO ASSIST WITH ADLS. MCC FOR DIABETES, NUTRITION AND MEDICATION EDUCATION. PHYSICAL THERAPY FOR STRENGTHENING AND FALL SAFETY HOMEBOUND STATUS: CONSIDERABLE TAXING EFFORT TO LEAVE THE HOME MD CONTACTED, PLAN OF CARE REVIEWED. MD IN AGREEMENT WITH THE PLAN AND VISIT FREQUENCY AND MEDICATION RECONCILATION. [code = CLINICAL SUMMARY CURRENT INTERVENTIONS TO BE PROVIDED AND FREQUENCY STATED ABOVE HISTORY/PRIOR TREATMENTS/RECENT HOSPITAL STAYS: PATIENT WAS BROUGHT TO [facility] MARCH 03 AFTER SHE LOST CONSCIOUSNESS AT HOME, HER LIFE ALERT ALERTED EMS WHO BROUGHT HER TO ER. PATIENT DIAGNOSED WITH HYPOKALEMIA. TREATED AND DISCHARGED HOME MARCH 04 PATIENT CURRENT PRESENTATION/ADHERENCE/REASON FOR REFERRAL: PATIENT ALERT ORIENTEDX3 COMPLAINTS OF PAIN TO BACK AND KNEES SOB ON EXERTION. POOR APPETITE. AMBULATING WITH WALKER. HAS CANTEEN MANAGER TO ASSIST WITH ADLS. MCC FOR DIABETES, NUTRITION AND MEDICATION EDUCATION. PHYSICAL THERAPY FOR STRENGTHENING AND FALL SAFETY HOMEBOUND STATUS: CONSIDERABLE TAXING EFFORT TO LEAVE THE HOME MD CONTACTED, PLAN OF CARE REVIEWED. MD IN AGREEMENT WITH THE PLAN AND VISIT FREQUENCY AND MEDICATION RECONCILATION.] Future Scheduled Test SKILLED NU RSE TO PROVIDE ASSESSMENT AND TEACHING/REINFORCEMENT OF MANAGEMENT OF DEPRESSION INCLUDING DISEASE PROCESS, MEDICATION MANAGEMENT, COPING SKILLS AND IDENTIFY CHANGES ASSOCIATED WITH DEPRESSIVE DISORDERS FOR EARLY INTERVENTION. [code = SKILLED NURSE TO PROVIDE ASSESSMENT AND TEACHING/REINFORCEMENT OF MANAGEMENT OF DEPRESSION INCLUDING DISEASE PROCESS, MEDICATION MANAGEMENT, COPING SKILLS AND IDENTIFY CHANGES ASSOCIATED WITH DEPRESSIVE DISORDERS FOR EARLY INTERVENTION.] Future Scheduled Test SKILLED NU RSE TO OBTAIN PULSE OXIMETRY MEASUREMENT PRN FOR SIGNS AND SYMPTOMS OF SHORTNESS OF BREATH, ACTIVITY INTOLERANCE AND WHEN OXYGEN IS ORDERED. [code = SKILLED NURSE TO OBTAIN PULSE OXIMETRY MEASUREMENT PRN FOR SIGNS AND SYMPTOMS OF SHORTNESS OF BREATH, ACTIVITY INTOLERANCE AND WHEN OXYGEN IS ORDERED.] Future Scheduled Test PATIENT ALMARAZ S A RISK OF REHOSPITALIZATION. SKILLED NURSE TO ESTABLISH SUPPORT MEASURES TO MINIMIZE RISK OF REHOSPITALIZATION, AND INSTRUCT PATIENT/CAREGIVER ON METHODS TO REDUCE AVOIDABLE HOSPITALIZATION. [code = PATIENT HAS A RISK OF REHOSPITALIZATION. SKILLED NURSE TO ESTABLISH SUPPORT MEASURES TO MINIMIZE RISK OF REHOSPITALIZATION, AND INSTRUCT PATIENT/CAREGIVER ON METHODS TO REDUCE AVOIDABLE HOSPITALIZATION.] Future Scheduled Test SKILLED NU RSE TO PROVIDE INSTRUCTION TO PATIENT/CAREGIVER RELATED TO DISCHARGE PLANNING. [code = SKILLED NURSE TO PROVIDE INSTRUCTION TO PATIENT/CAREGIVER RELATED TO DISCHARGE PLANNING.] Future Scheduled Test SKILLED NU RSE FOR OBSERVATION AND ASSESSMENT OF PATIENTS PAIN LEVEL AND EFFECTIVENESS OF PAIN MANAGEMENT REGIMEN. SKILLED NURSE TO INSTRUCT PATIENT/CAREGIVER REGARDING PHARMACOLOGIC AND NON-PHARMACOLOGIC PAIN CONTROL MEASURES. SKILLED NURSE TO REPORT TO PHYSICIAN IF PAIN IS UNCONTROLLED WITH CURRENT PAIN MANAGEMENT REGIMEN. [code = SKILLED NURSE FOR OBSERVATION AND ASSESSMENT OF PATIENTS PAIN LEVEL AND EFFECTIVENESS OF PAIN MANAGEMENT REGIMEN. SKILLED NURSE TO INSTRUCT PATIENT/CAREGIVER REGARDING PHARMACOLOGIC AND NON-PHARMACOLOGIC PAIN CONTROL MEASURES. SKILLED NURSE TO REPORT TO PHYSICIAN IF PAIN IS UNCONTROLLED WITH CURRENT PAIN MANAGEMENT REGIMEN.] Future Scheduled Test SKILLED NU RSE FOR O/A OF RESPIRATORY SYSTEM TO IDENTIFY CHANGES ASSOCIATED WITH EXACERBATION AND TO PROVIDE SKILLED TEACHING ON MANAGEMENT OF ASTHMA RESPIRATORY DISEASE PROCESS. [code = SKILLED NURSE FOR O/A OF RESPIRATORY SYSTEM TO IDENTIFY CHANGES ASSOCIATED WITH EXACERBATION AND TO PROVIDE SKILLED TEACHING ON MANAGEMENT OF ASTHMA RESPIRATORY DISEASE PROCESS.] Future Scheduled Test SKILLED NU RSE TO ASSESS PATIENT'S SKIN INTEGRITY AND INSTRUCT PATIENT/CAREGIVER ON MEASURES TO PREVENT PRESSURE ULCERS [code = SKILLED NURSE TO ASSESS PATIENT'S SKIN INTEGRITY AND INSTRUCT PATIENT/CAREGIVER ON MEASURES TO PREVENT PRESSURE ULCERS] Future Scheduled Test PHYSICAL T HERAPIST TO EVALUATE PATIENT [code = PHYSICAL THERAPIST TO EVALUATE PATIENT ] Future Scheduled Test SKILLED NU RSE TO PROVIDE TEACHING ON SIGNS AND SYMPTOMS AND MANAGEMENT OF HYPERTENSION. [code = SKILLED NURSE TO PROVIDE TEACHING ON SIGNS AND SYMPTOMS AND MANAGEMENT OF HYPERTENSION.] Future Scheduled Test SKILLED NU RSE FOR O/A AND TEACHING OF DIABETIC MANAGEMENT INCLUDING BLOOD SUGAR MONITORING/USE OF GLUCOMETER, DIABETIC DIET, LOWER EXTREMITY SKIN INSPECTION, PROPER SKIN/FOOT CARE, AND SIGNS AND SYMPTOMS HYPO/HYPERGLYCEMIA TO REPORT AND METHODS TO MANAGE [code = SKILLED NURSE FOR O/A AND TEACHING OF DIABETIC MANAGEMENT INCLUDING BLOOD SUGAR MONITORING/USE OF GLUCOMETER, DIABETIC DIET, LOWER EXTREMITY SKIN INSPECTION, PROPER SKIN/FOOT CARE, AND SIGNS AND SYMPTOMS HYPO/HYPERGLYCEMIA TO REPORT AND METHODS TO MANAGE] Goal 2021-04-27 Patient Goal - NO MORE FALLS Goal Provider Goal - A PLAN OF CARE WILL BE ESTABLISHED THAT MEETS PATIENT'S MCC NEEDS AND INCLUDES PATIENT GOAL FOR HOME HEALTH. Goal Provider Goal - CHANGES IN LOWER EXTREMITIES WILL BE IDENTIFIED AND REPORTED TO MD FOR PROMPT INTERVENTION TO PREVENT ASSOCIATED RISKS THROUGHOUT THE CERTIFICATION PERIOD. PATIENT/CAREGIVER WILL VERBALIZE UNDERSTANDING OF PROPER DIABETIC SKIN/FOOT CARE BY THE END OF THE CERTIFICATION PERIOD. Goal Provider Goal - PATIENT/CAREGIVER WILL VERBALIZE UNDERSTANDING OF EDUCATION PROVIDED ON MEDICATIONS BY THE END OF THE CERTIFICATION PERIOD. Goal Provider Goal - PATIENT/CAREGIVER WILL VERBALIZE/DEMONSTRATE EFFECTIVE HOME SAFETY AND FALL PREVENTION STRATEGIES THROUGHOUT CERTIFICATION PERIOD. Goal Provider Goal - Goal Provider Goal - PATIENT/CAREGIVER WILL VERBALIZE/DEMONSTRATE UNDERSTANDING OF THE MANAGEMENT OF DEPRESSION BY THE END OF THE EPISODE AND SYMPTOMS ARE IDENTIFIED AND MANAGED TO MAINTAIN PATIENT SAFETY IN THE HOME Goal Provider Goal - PULSE OXIMETER RESULTS OBTAINED NEEDED FOR RESPIRATORY COMPLICATIONS. Goal Provider Goal - PATIENT WILL HAVE SUPPORT MEASURES ESTABLISHED TO PREVENT REHOSPITALIZATION AND PATIENT/CAREGIVER WILL VERBALIZE/DEMONSTRATE METHODS TO REDUCE AVOIDABLE HOSPITALIZATION BY END OF CERTIFICATION PERIOD Goal Provider Goal - PATIENT/CAREGIVER WILL VERBALIZE UNDERSTANDING OF DISCHARGE PLANNING INSTRUCTIONS BY DATE OF DISCHARGE. Goal Provider Goal - PATIENT/CAREGIVER WILL DEMONSTRATE UNDERSTANDING OF PHARMACOLOGIC AND NONPHARMACOLOGIC PAIN CONTROL MEASURES AND PATIENT WILL HAVE IMPROVEMENT IN PAIN INTERFERING WITH ACTIVITY EVIDENCED BY PAIN CONTROLLED AT LEVEL OF 7 OR LESS BY END OF CERTIFICATION PERIOD. Goal Provider Goal - PATIENT/CAREGIVER WILL VERBALIZE/DEMONSTRATE MANAGEMENT OF RESPIRATORY DISEASE PROCESS. CHANGES IN RESPIRATORY STATUS WILL BE IDENTIFIED AND REPORTED TO PHYSICIAN FOR PROMPT INTERVENTION THROUGHOUT THE CERTIFICATION PERIOD. Goal Provider Goal - PATIENT/CAREGIVER WILL VERBALIZE UNDERSTANDING OF PRESSURE ULCER PREVENTION BY END OF CERTIFICATION PERIOD Goal Provider Goal - A PHYSICAL THERAPY EVALUATION TO BE COMPLETED WITH RECOMMENDATIONS AND/OR WRITTEN PLAN OF TREATMENT ESTABLISHED FOR PHYSICIANS SIGNATURE. Goal Provider Goal - PATIENT/CAREGIVER WILL VERBALIZE SIGNS AND SYMPTOMS OF HYPERTENSION AND WILL BE ABLE TO DEMONSTRATE ABILITY TO MANAGE EXACERBATION BY END OF CERTIFICATION PERIOD Goal Provider Goal - PATIENT/CAREGIVER WILL VERBALIZE/DEMONSTRATE KNOWLEDGE OF DIABETIC MANAGEMENT. CHANGES IN DIABETIC STATUS WILL BE IDENTIFIED AND REPORTED TO PHYSICIAN FOR PROMPT INTERVENTION THROUGHOUT THE CERTIFICATION PERIOD. Reason for Visit MINIMUM ASSIST WITH TRANSFER/AMBULATION/ADLS Encounters Start Date/Time End Date/Time Encounter Type Admission Type Attending [facility] Care [facility] Care Department Encounter ID Discharge Date Discharge Status Discharge Condition Discharge Reason Percent Goals Met 2021-03-05 00:00:00 2021-04-27 00:00:00 Outpatient NEW ADMISSION KAMRAN RUBIO [facility] [id number] 00:00:00 DISCHARGE TO HOME OR SELF CARE MINIMUM ASSIST WITH TRANSFER/A MBULATION/ ADLS GOALS MET ( ONLY) 93.33
== END 2024-10-14 18:03 | disposition home or self-care (01) ==
LOC: HO.HHCLNP 18:02
PROVIDERS: Visit Provider Advanced Practice Midwife
DX: N89.8 Other specified noninflammatory disorders of vagina (principal)
CPT/HCPCS: 0352U

== ENCOUNTER 2024-10-16 10:02 | Outpatient (REF) | payer OTHER, SELFPAY ==
--- NOTE | ~2024-10-16 | CT_ITS ---
EXAMINATION: CT HEAD WITHOUT CONTRAST CLINICAL INFORMATION: Fall. Headaches COMPARISON: Prior CT head dated 03/08/2023 TECHNIQUE: Contiguous axial imaging was performed from the skull base to vertex without intravenous administration of contrast. This CT examination was performed using dose optimization techniques as appropriate, variously including the following: *Automated exposure control *Adjustment of mA and/or kV according to patient size (this includes techniques or standardized protocols for targeted exams where dose is matched to indication/reason for exam; i.e. extremities or head) *Use of iterative reconstruction technique DLP: 703 mGy-cm FINDINGS: There is diffuse calvarial thickening but no fracture or destructive process. No intra or extra-axial fluid collection, hemorrhage, mass, or mass effect. CT/CT head/brain wo IV con IMPRESSION: No acute intracranial pathology. Electronically signed by: Espinoza Gregory MD 10/16/2024 11:38 AM RONNY
--- OUTSIDE RECORDS SUMMARY | 2024-10-17 | XMS_ITS | Clinical Summary ---
Author Organization Unknown Care Team Providers Care Learning Administrator Name Role Phone NAME HERON FARLEY Unavailable Unavailable JOANNE RABAGO, KAMRAN Unavailable Unavailable Payers Payer Name Policy Type Policy Number Effective Date Expira tion Date MEDICARE - [place]GS [place] - [place] [id number] MEDICAID [facility] [id number] Problems Condition Name Condition Details Condition Category [...] 02-09 00:00: 00 05-22 23:59 :00 No [id number] Per instruc tions EVERY 12 HOURS FOR NO MORE THAN 1 2 HOURS Per instructio ns EVERY 12 HOURS FOR NO MORE THAN 1 2 HOURS (route: topical) Med Classific ation: Dermatolo gical ammonium lactate 12 % topical cream -14 00:00: 00 05-22 23:59 :00 No [id number] Per instruc tions AREAS TWICE DAILY Per instructio ns AREAS TWICE DAILY (route: topical) Med Classific ation: Dermatolo gical Breo Ellipta 100 mcg-25 mcg/dose powder for inhalation -10 00:00: 00 05-22 23:59 :00 No [id number] Per instruc tions 1 INHALATION DAILY Per instructio ns 1 INHALATION DAILY (route: inhalation ) Med Classific ation: Respirato ry Therapy Agents Incruse Ellipta 62.5 mcg/actuati on powder for inhalation 03-01 00:00: 00 05-22 23:59 :00 No [id number] 1 inhalat ion DAILY 1 inhalation DAILY (route: inhalation ) Med Classific ation: Respirato ry Therapy Agents Combivent Respimat 20 mcg-100 mcg/actuati on solution for inhalation 02-20 00:00: 00 05-22 23:59 :00 No [id number] 1 puff DAILY 1 puff DAILY (route: inhalation ) Med Classific ation: Respirato ry Therapy Agents Klor-Con M20 mEq tablet,exte nded release 30 00:00: 00 03-10 23:59 :00 No [id number] 1 tablet DAILY 1 tablet DAILY (route: oral) Med Classific ation: Electroly te Balance-N utritiona l Products baclofen 10 mg tablet 15 00:00: 00 05-22 23:59 :00 No [id number] Per instruc tions 2 TIMES EVERY DAY NEEDED Per instructio ns 2 TIMES EVERY DAY NEEDED (route: oral) Med Classific ation: Locomotor System phentermine 37.5 mg capsule 4-11 00:00: 00 05-22 23:59 :00 No [id number] Per instruc tions EVERY DAY 30 MINS BEFORE OR 1 2 HOURS Per instructio ns EVERY DAY 30 MINS BEFORE OR 1 2 HOURS (route: oral) Med Classific ation: Eating Disorder Therapy zolpidem 10 mg tablet 4-05 00:00: 00 05-22 23:59 :00 No [id number] Per instruc tions EVERY DAY AT BEDTIME NEEDED Per instructio ns EVERY DAY AT BEDTIME NEEDED (route: oral) Med Classific ation: Central Nervous System Agents pregabalin 225 mg capsule 4-16 00:00: 00 05-22 23:59 :00 No [id number] Per instruc tions TWICE A DAY Per instructio ns TWICE A DAY (route: oral) Med Classific ation: Central Nervous System Agents sumatriptan 100 mg tablet - 00:00: 00 05-22 23:59 :00 No [id number] 1 tablet DIRECTED 1 tablet DIRECTED (route: oral) Med Classific ation: Central Nervous System Agents montelukast 10 mg tablet 2-16 00:00: 00 05-22 23:59 :00 No [id number] Per instruc tions EVERY DAY Per instructio ns EVERY DAY (route: oral) Med Classific ation: Respirato ry Therapy Agents losartan 50 mg-hydrochl orothiazide 12.5 mg tablet 2-22 00:00: 00 03-05 00:00 :00 No [id number] Per instruc tions EVERY DAY Per instructio ns EVERY DAY (route: oral) Med Classific ation: Cardiovas cular Therapy Agents venlafaxine ER 150 mg capsule,ext ended release 24 hr 4-14 00:00: 00 05-22 23:59 :00 No [id number] Per instruc tions EVERY DAY Per instructio ns EVERY DAY (route: oral) Med Classific ation: Central Nervous System Agents meloxicam 15 mg tablet 3-03 00:00: 00 05-22 23:59 :00 No [id number] Per instruc tions EVERY OTHER DAY Per instructio ns EVERY OTHER DAY (route: oral) Med Classific ation: Analgesic , Anti-infl ammatory or Antipyret ic atorvastati n 20 mg tablet 2- 00:00: 00 05-22 23:59 :00 No [id number] Per instruc tions EVERY DAY Per instructio ns EVERY DAY (route: oral) Med Classific ation: Cardiovas cular Therapy Agents amitriptyli ne 50 mg tablet 02-08 00:00: 00 05-22 23:59 :00 No [id number] Per instruc tions AT BEDTIME Per instructio ns AT BEDTIME (route: oral) Med Classific ation: Central Nervous System Agents losartan 50 mg-hydrochl orothiazide 12.5 mg tablet 03-04 00:00: 00 05-22 23:59 :00 No [id number] 1 tablet DAILY 1 tablet DAILY (route: oral) Med Classific ation: Cardiovas cular Therapy Agents topiramate 100 mg tablet 03-05 00:00: 00 05-22 23:59 :00 No [id number] 1 tablet DAILY 1 tablet DAILY (route: [...] TREATMENTS/RECENT HOSPITAL STAYS: PATIENT WAS BROUGHT TO [facility] MARCH 03 AFTER SHE LOST CONSCIOUSNESS AT HOME, HER LIFE ALERT ALERTED EMS WHO BROUGHT HER TO ER. PATIENT DIAGNOSED WITH HYPOKALEMIA. TREATED AND DISCHARGED HOME MARCH 04 PATIENT CURRENT PRESENTATION/ADHERENCE/REASON FOR REFERRAL: PATIENT ALERT ORIENTEDX3 COMPLAINTS OF PAIN TO BACK AND KNEES SOB ON EXERTION. POOR APPETITE. AMBULATING WITH WALKER. HAS PROMOTION SPECIALIST TO ASSIST WITH ADLS. SHELTER FOR DIABETES, NUTRITION AND MEDICATION EDUCATION. PHYSICAL THERAPY FOR STRENGTHENING AND FALL SAFETY HOMEBOUND STATUS: CONSIDERABLE TAXING EFFORT TO LEAVE THE HOME MD CONTACTED, PLAN OF CARE REVIEWED. MD IN AGREEMENT WITH THE PLAN AND VISIT FREQUENCY AND MEDICATION RECONCILATION. [code = CLINICAL SUMMARY CURRENT INTERVENTIONS TO BE PROVIDED AND FREQUENCY STATED ABOVE HISTORY/PRIOR TREATMENTS/RECENT HOSPITAL STAYS: PATIENT WAS BROUGHT TO [facility] MARCH 03 AFTER SHE LOST CONSCIOUSNESS AT HOME, HER LIFE ALERT ALERTED EMS WHO BROUGHT HER TO ER. PATIENT DIAGNOSED WITH HYPOKALEMIA. TREATED AND DISCHARGED HOME MARCH 04 PATIENT CURRENT PRESENTATION/ADHERENCE/REASON FOR REFERRAL: PATIENT ALERT ORIENTEDX3 COMPLAINTS OF PAIN TO BACK AND KNEES SOB ON EXERTION. POOR APPETITE. AMBULATING WITH WALKER. HAS PROMOTION SPECIALIST TO ASSIST WITH ADLS. SHELTER FOR DIABETES, NUTRITION AND MEDICATION EDUCATION. PHYSICAL [...] CARE WILL BE ESTABLISHED THAT MEETS PATIENT'S SHELTER NEEDS AND INCLUDES PATIENT GOAL FOR HOME [...] End Date/Time Encounter Type Admission Type Attending [facility] Care [facility] Care Department Encounter ID Discharge Date Discharge Status Discharge Condition Discharge Reason Percent Goals Met 2021-03-05 00:00:00 2021-04-27 00:00:00 Outpatient NEW ADMISSION KAMRAN RUBIO [facility] [id number] 00:00:00 DISCHARGE TO HOME OR SELF CARE MINIMUM ASSIST WITH TRANSFER/A MBULATION/ ADLS GOALS MET ( ONLY) 93.33
--- OUTSIDE RECORDS SUMMARY | 2024-10-17 00:02 | XMS_ITS | Clinical Summary ---
Author Organization Unknown Care Team Providers Care Rubber Stamp Dies Inspector Name Role Phone NAME HERON FARLEY Unavailable Unavailable JOANNE RABAGO, KAMRAN Unavailable Unavailable Payers Payer Name Policy Type Policy Number Effective Date Expira tion Date MEDICARE - NGS [place] - [place] [id number] MEDICAID [facility] [id number] Problems Condition Name Condition Details Condition Category [...] 02-09 00:00: 00 05-22 23:59 :00 No [id number] Per instruc tions EVERY 12 HOURS FOR NO MORE THAN 1 2 HOURS Per instructio ns EVERY 12 HOURS FOR NO MORE THAN 1 2 HOURS (route: topical) Med Classific ation: Dermatolo gical ammonium lactate 12 % topical cream -14 00:00: 00 05-22 23:59 :00 No [id number] Per instruc tions AREAS TWICE DAILY Per instructio ns AREAS TWICE DAILY (route: topical) Med Classific ation: Dermatolo gical Breo Ellipta 100 mcg-25 mcg/dose powder for inhalation -10 00:00: 00 05-22 23:59 :00 No [id number] Per instruc tions 1 INHALATION DAILY Per instructio ns 1 INHALATION DAILY (route: inhalation ) Med Classific ation: Respirato ry Therapy Agents Incruse Ellipta 62.5 mcg/actuati on powder for inhalation 03-01 00:00: 00 05-22 23:59 :00 No [id number] 1 inhalat ion DAILY 1 inhalation DAILY (route: inhalation ) Med Classific ation: Respirato ry Therapy Agents Combivent Respimat 20 mcg-100 mcg/actuati on solution for inhalation 02-20 00:00: 00 05-22 23:59 :00 No [id number] 1 puff DAILY 1 puff DAILY (route: inhalation ) Med Classific ation: Respirato ry Therapy Agents Klor-Con M20 mEq tablet,exte nded release 30 00:00: 00 03-10 23:59 :00 No [id number] 1 tablet DAILY 1 tablet DAILY (route: oral) Med Classific ation: Electroly te Balance-N utritiona l Products baclofen 10 mg tablet 15 00:00: 00 05-22 23:59 :00 No [id number] Per instruc tions 2 TIMES EVERY DAY NEEDED Per instructio ns 2 TIMES EVERY DAY NEEDED (route: oral) Med Classific ation: Locomotor System phentermine 37.5 mg capsule 4-11 00:00: 00 05-22 23:59 :00 No [id number] Per instruc tions EVERY DAY 30 MINS BEFORE OR 1 2 HOURS Per instructio ns EVERY DAY 30 MINS BEFORE OR 1 2 HOURS (route: oral) Med Classific ation: Eating Disorder Therapy zolpidem 10 mg tablet 4-05 00:00: 00 05-22 23:59 :00 No [id number] Per instruc tions EVERY DAY AT BEDTIME NEEDED Per instructio ns EVERY DAY AT BEDTIME NEEDED (route: oral) Med Classific ation: Central Nervous System Agents pregabalin 225 mg capsule 4-16 00:00: 00 05-22 23:59 :00 No [id number] Per instruc tions TWICE A DAY Per instructio ns TWICE A DAY (route: oral) Med Classific ation: Central Nervous System Agents sumatriptan 100 mg tablet - 00:00: 00 05-22 23:59 :00 No [id number] 1 tablet DIRECTED 1 tablet DIRECTED (route: oral) Med Classific ation: Central Nervous System Agents montelukast 10 mg tablet 2-16 00:00: 00 05-22 23:59 :00 No [id number] Per instruc tions EVERY DAY Per instructio ns EVERY DAY (route: oral) Med Classific ation: Respirato ry Therapy Agents losartan 50 mg-hydrochl orothiazide 12.5 mg tablet 2-22 00:00: 00 03-05 00:00 :00 No [id number] Per instruc tions EVERY DAY Per instructio ns EVERY DAY (route: oral) Med Classific ation: Cardiovas cular Therapy Agents venlafaxine ER 150 mg capsule,ext ended release 24 hr 4-14 00:00: 00 05-22 23:59 :00 No [id number] Per instruc tions EVERY DAY Per instructio ns EVERY DAY (route: oral) Med Classific ation: Central Nervous System Agents meloxicam 15 mg tablet 3-03 00:00: 00 05-22 23:59 :00 No [id number] Per instruc tions EVERY OTHER DAY Per instructio ns EVERY OTHER DAY (route: oral) Med Classific ation: Analgesic , Anti-infl ammatory or Antipyret ic atorvastati n 20 mg tablet 2- 00:00: 00 05-22 23:59 :00 No [id number] Per instruc tions EVERY DAY Per instructio ns EVERY DAY (route: oral) Med Classific ation: Cardiovas cular Therapy Agents amitriptyli ne 50 mg tablet 02-08 00:00: 00 05-22 23:59 :00 No [id number] Per instruc tions AT BEDTIME Per instructio ns AT BEDTIME (route: oral) Med Classific ation: Central Nervous System Agents losartan 50 mg-hydrochl orothiazide 12.5 mg tablet 03-04 00:00: 00 05-22 23:59 :00 No [id number] 1 tablet DAILY 1 tablet DAILY (route: oral) Med Classific ation: Cardiovas cular Therapy Agents topiramate 100 mg tablet 03-05 00:00: 00 05-22 23:59 :00 No [id number] 1 tablet DAILY 1 tablet DAILY (route: [...] TREATMENTS/RECENT HOSPITAL STAYS: PATIENT WAS BROUGHT TO [facility] MARCH 03 AFTER SHE LOST CONSCIOUSNESS AT HOME, HER LIFE ALERT ALERTED EMS WHO BROUGHT HER TO ER. PATIENT DIAGNOSED WITH HYPOKALEMIA. TREATED AND DISCHARGED HOME MARCH 04 PATIENT CURRENT PRESENTATION/ADHERENCE/REASON FOR REFERRAL: PATIENT ALERT ORIENTEDX3 COMPLAINTS OF PAIN TO BACK AND KNEES SOB ON EXERTION. POOR APPETITE. AMBULATING WITH WALKER. HAS WATER HAULER TO ASSIST WITH ADLS. JAIL FOR DIABETES, NUTRITION AND MEDICATION EDUCATION. PHYSICAL THERAPY FOR STRENGTHENING AND FALL SAFETY HOMEBOUND STATUS: CONSIDERABLE TAXING EFFORT TO LEAVE THE HOME MD CONTACTED, PLAN OF CARE REVIEWED. MD IN AGREEMENT WITH THE PLAN AND VISIT FREQUENCY AND MEDICATION RECONCILATION. [code = CLINICAL SUMMARY CURRENT INTERVENTIONS TO BE PROVIDED AND FREQUENCY STATED ABOVE HISTORY/PRIOR TREATMENTS/RECENT HOSPITAL STAYS: PATIENT WAS BROUGHT TO [facility] MARCH 03 AFTER SHE LOST CONSCIOUSNESS AT HOME, HER LIFE ALERT ALERTED EMS WHO BROUGHT HER TO ER. PATIENT DIAGNOSED WITH HYPOKALEMIA. TREATED AND DISCHARGED HOME MARCH 04 PATIENT CURRENT PRESENTATION/ADHERENCE/REASON FOR REFERRAL: PATIENT ALERT ORIENTEDX3 COMPLAINTS OF PAIN TO BACK AND KNEES SOB ON EXERTION. POOR APPETITE. AMBULATING WITH WALKER. HAS WATER HAULER TO ASSIST WITH ADLS. JAIL FOR DIABETES, NUTRITION AND MEDICATION EDUCATION. PHYSICAL [...] CARE WILL BE ESTABLISHED THAT MEETS PATIENT'S JAIL NEEDS AND INCLUDES PATIENT GOAL FOR HOME [...] End Date/Time Encounter Type Admission Type Attending [facility] Care [facility] Care Department Encounter ID Discharge Date Discharge Status Discharge Condition Discharge Reason Percent Goals Met 2021-03-05 00:00:00 2021-04-27 00:00:00 Outpatient NEW ADMISSION KAMRAN RUBIO [facility] [id number] 00:00:00 DISCHARGE TO HOME OR SELF CARE MINIMUM ASSIST WITH TRANSFER/A MBULATION/ ADLS GOALS MET ( ONLY) 93.33
== END 2024-10-16 10:03 | disposition home or self-care (01) ==
LOC: HO.CT 10:02
PROVIDERS: PCP Internal Medicine; Visit Provider Internal Medicine
DX: R51.9 Headache, unspecified (principal); W10.8XXA Fall (on) (from) other stairs and steps, initial encounter
CPT/HCPCS: 70450

== ENCOUNTER 2024-11-06 14:40 | Emergency (ER) | payer OTHER, SELFPAY ==
--- NOTE | ~2024-11-06 | XR_ITS ---
CLINICAL HISTORY: dyspnea 1 view chest x-ray Comparison: 10/17/2023 Findings: Portions of the exam are obscured by overlying material. No consolidation or effusion. Heart size is normal. No acute fracture. IMPRESSION: 1. No acute findings. This document has been electronically signed by: Talha Champion MD on 11/06/2024 20:42:41
[2024-11-06 15:07] VITALS: BP 164/92; PULSE 102; RESP 18; TEMP 37.1; O2SAT 98; BMI 28.7
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
[2024-11-06 17:09] LABS: MANUAL DIFF FLAG NO
[2024-11-06 17:10] LABS: Basophils Absolute Auto 0.1 X10*3/uL (0.0-0.2); Basophils Percent Auto 0.8 % (0-2); Eosinophils Absolute Auto 0.1 X10*3/uL (0.0-0.4); Hematocrit 37.5 % (37.0-47.0); Imm Gran Abs Auto 0.03 X10*3/uL (0.00-0.03); Imm Gran Pct Auto 0.4 % (0.0-0.4); Lymphocytes Absolute Auto 2.4 X10*3/uL (1.2-4.9); Mean Corpuscular HGB Conc 34.7 g/dl (31.0-35.0); Mean Corpuscular Volume 89.5 fL (80.0-98.0); Mean Platelet Volume 9.8 fL (9.4-12.3); Monocytes Absolute Auto 0.6 X10*3/uL (0.1-1.2); Monocytes Percent Auto 7.7 % (2-11); Neutrophils Absolute Auto 4.6 x10*3/uL (2.0-8.3); Neutrophils Percent Auto 59.1 % (45-73); Platelet Count 294 X10*3/uL (160-400); Red Blood Count 4.19 X10*6/uL (4.20-5.50); Red Cell Distribution Width 14.2 % (11.0-16.0); White Blood Count 7.7 X10*3/uL (4.8-10.8)
[2024-11-06 17:27] LABS: Acetaminophen LAB 3 mcg/mL (<30); Alanine Aminotransferase 21 U/L (0-31); Albumin Level 4.4 g/dL (3.5-5.0); Alkaline Phosphatase 96 U/L (39-117); Anion Gap 15 (12-20); Aspartate Amino Transferase 31 U/L (5-31); Bilirubin Total 0.5 mg/dL (0.0-1.0); Blood Urea Nitrogen 9 mg/dL (9-16); Calcium 9.8 mg/dL (8.4-10.2); Carbon Dioxide 23 mmol/L (22-29); Chloride 108 mmol/L (96-108); Creatinine Clr Calc Pharmacy 68.3; Estimated Glomerular Filt Rate > 60; Ethanol < 10 mg/dL; Glucose Random 113 mg/dL (60-115); Potassium 3.8 mmol/L (3.3-5.1); Salicylate < 5.0 mg/dL (15-30); Sodium 142 mmol/L (135-145); Total Protein 7.6 g/dL (6.5-8.0)
[2024-11-06 17:51] VITALS: BP 144/95; PULSE 94; RESP 16; TEMP 36.6; O2SAT 100
[2024-11-06 18:48] LABS: Influenza A PCR NEGATIVE (Negative); Influenza B PCR NEGATIVE (Negative); Resp Syncy Virus RNA Qual PCR NEGATIVE (Negative); SARS COV2 PCR INHOUSE NEGATIVE (Negative)
[2024-11-06 18:50] LABS: IDNOW Serial# 6674DD1D; Strep A Nucleic Acid Negative (Negative)
--- OUTSIDE RECORDS SUMMARY | 2024-11-06 18:58 | XMS_ITS | Clinical Summary ---
Author Organization Unknown Care Team Providers Care Director Of Community Education Name Role Phone NAME HERON FARLEY Unavailable Unavailable JOANNE RABAGO, KAMRAN Unavailable Unavailable Payers Payer Name Policy Type Policy Number Effective Date Expira tion Date MEDICARE - NGS MA/RI - PD [id number] MEDICAID [facility] [id number] Problems Condition Name Condition Details Condition Category [...] 02-09 00:00: 00 05-22 23:59 :00 No [id number] Per instruc tions EVERY 12 HOURS FOR NO MORE THAN 1 2 HOURS Per instructio ns EVERY 12 HOURS FOR NO MORE THAN 1 2 HOURS (route: topical) Med Classific ation: Dermatolo gical ammonium lactate 12 % topical cream -14 00:00: 00 05-22 23:59 :00 No [id number] Per instruc tions AREAS TWICE DAILY Per instructio ns AREAS TWICE DAILY (route: topical) Med Classific ation: Dermatolo gical Breo Ellipta 100 mcg-25 mcg/dose powder for inhalation -10 00:00: 00 05-22 23:59 :00 No [id number] Per instruc tions 1 INHALATION DAILY Per instructio ns 1 INHALATION DAILY (route: inhalation ) Med Classific ation: Respirato ry Therapy Agents Incruse Ellipta 62.5 mcg/actuati on powder for inhalation 03-01 00:00: 00 05-22 23:59 :00 No [id number] 1 inhalat ion DAILY 1 inhalation DAILY (route: inhalation ) Med Classific ation: Respirato ry Therapy Agents Combivent Respimat 20 mcg-100 mcg/actuati on solution for inhalation 02-20 00:00: 00 05-22 23:59 :00 No [id number] 1 puff DAILY 1 puff DAILY (route: inhalation ) Med Classific ation: Respirato ry Therapy Agents Klor-Con M20 mEq tablet,exte nded release 30 00:00: 00 03-10 23:59 :00 No [id number] 1 tablet DAILY 1 tablet DAILY (route: oral) Med Classific ation: Electroly te Balance-N utritiona l Products baclofen 10 mg tablet 15 00:00: 00 05-22 23:59 :00 No [id number] Per instruc tions 2 TIMES EVERY DAY NEEDED Per instructio ns 2 TIMES EVERY DAY NEEDED (route: oral) Med Classific ation: Locomotor System phentermine 37.5 mg capsule 4-11 00:00: 00 05-22 23:59 :00 No [id number] Per instruc tions EVERY DAY 30 MINS BEFORE OR 1 2 HOURS Per instructio ns EVERY DAY 30 MINS BEFORE OR 1 2 HOURS (route: oral) Med Classific ation: Eating Disorder Therapy zolpidem 10 mg tablet 4-05 00:00: 00 05-22 23:59 :00 No [id number] Per instruc tions EVERY DAY AT BEDTIME NEEDED Per instructio ns EVERY DAY AT BEDTIME NEEDED (route: oral) Med Classific ation: Central Nervous System Agents pregabalin 225 mg capsule 4-16 00:00: 00 05-22 23:59 :00 No [id number] Per instruc tions TWICE A DAY Per instructio ns TWICE A DAY (route: oral) Med Classific ation: Central Nervous System Agents sumatriptan 100 mg tablet - 00:00: 00 05-22 23:59 :00 No [id number] 1 tablet DIRECTED 1 tablet DIRECTED (route: oral) Med Classific ation: Central Nervous System Agents montelukast 10 mg tablet 2-16 00:00: 00 05-22 23:59 :00 No [id number] Per instruc tions EVERY DAY Per instructio ns EVERY DAY (route: oral) Med Classific ation: Respirato ry Therapy Agents losartan 50 mg-hydrochl orothiazide 12.5 mg tablet 2-22 00:00: 00 03-05 00:00 :00 No [id number] Per instruc tions EVERY DAY Per instructio ns EVERY DAY (route: oral) Med Classific ation: Cardiovas cular Therapy Agents venlafaxine ER 150 mg capsule,ext ended release 24 hr 4-14 00:00: 00 05-22 23:59 :00 No [id number] Per instruc tions EVERY DAY Per instructio ns EVERY DAY (route: oral) Med Classific ation: Central Nervous System Agents meloxicam 15 mg tablet 3-03 00:00: 00 05-22 23:59 :00 No [id number] Per instruc tions EVERY OTHER DAY Per instructio ns EVERY OTHER DAY (route: oral) Med Classific ation: Analgesic , Anti-infl ammatory or Antipyret ic atorvastati n 20 mg tablet 2- 00:00: 00 05-22 23:59 :00 No [id number] Per instruc tions EVERY DAY Per instructio ns EVERY DAY (route: oral) Med Classific ation: Cardiovas cular Therapy Agents amitriptyli ne 50 mg tablet 02-08 00:00: 00 05-22 23:59 :00 No [id number] Per instruc tions AT BEDTIME Per instructio ns AT BEDTIME (route: oral) Med Classific ation: Central Nervous System Agents losartan 50 mg-hydrochl orothiazide 12.5 mg tablet 03-04 00:00: 00 05-22 23:59 :00 No [id number] 1 tablet DAILY 1 tablet DAILY (route: oral) Med Classific ation: Cardiovas cular Therapy Agents topiramate 100 mg tablet 03-05 00:00: 00 05-22 23:59 :00 No [id number] 1 tablet DAILY 1 tablet DAILY (route: [...] TREATMENTS/RECENT HOSPITAL STAYS: PATIENT WAS BROUGHT TO [facility] MARCH 03 AFTER SHE LOST CONSCIOUSNESS AT HOME, HER LIFE ALERT ALERTED EMS WHO BROUGHT HER TO ER. PATIENT DIAGNOSED WITH HYPOKALEMIA. TREATED AND DISCHARGED HOME MARCH 04 PATIENT CURRENT PRESENTATION/ADHERENCE/REASON FOR REFERRAL: PATIENT ALERT ORIENTEDX3 COMPLAINTS OF PAIN TO BACK AND KNEES SOB ON EXERTION. POOR APPETITE. AMBULATING WITH WALKER. HAS ICE SKATING INSTRUCTOR TO ASSIST WITH ADLS. NURSING HOME FOR DIABETES, NUTRITION AND MEDICATION EDUCATION. PHYSICAL THERAPY FOR STRENGTHENING AND FALL SAFETY HOMEBOUND STATUS: CONSIDERABLE TAXING EFFORT TO LEAVE THE HOME MD CONTACTED, PLAN OF CARE REVIEWED. MD IN AGREEMENT WITH THE PLAN AND VISIT FREQUENCY AND MEDICATION RECONCILATION. [code = CLINICAL SUMMARY CURRENT INTERVENTIONS TO BE PROVIDED AND FREQUENCY STATED ABOVE HISTORY/PRIOR TREATMENTS/RECENT HOSPITAL STAYS: PATIENT WAS BROUGHT TO [facility] MARCH 03 AFTER SHE LOST CONSCIOUSNESS AT HOME, HER LIFE ALERT ALERTED EMS WHO BROUGHT HER TO ER. PATIENT DIAGNOSED WITH HYPOKALEMIA. TREATED AND DISCHARGED HOME MARCH 04 PATIENT CURRENT PRESENTATION/ADHERENCE/REASON FOR REFERRAL: PATIENT ALERT ORIENTEDX3 COMPLAINTS OF PAIN TO BACK AND KNEES SOB ON EXERTION. POOR APPETITE. AMBULATING WITH WALKER. HAS ICE SKATING INSTRUCTOR TO ASSIST WITH ADLS. NURSING HOME FOR DIABETES, NUTRITION AND MEDICATION EDUCATION. PHYSICAL [...] CARE WILL BE ESTABLISHED THAT MEETS PATIENT'S NURSING HOME NEEDS AND INCLUDES PATIENT GOAL FOR HOME [...] End Date/Time Encounter Type Admission Type Attending [facility] Care [facility] Care Department Encounter ID Discharge Date Discharge Status Discharge Condition Discharge Reason Percent Goals Met 2021-03-05 00:00:00 2021-04-27 00:00:00 Outpatient NEW ADMISSION KAMRAN RUBIO [facility] [id number] 00:00:00 DISCHARGE TO HOME OR SELF CARE MINIMUM ASSIST WITH TRANSFER/A MBULATION/ ADLS GOALS MET ( ONLY) 93.33
--- NOTE | 2024-11-06 19:03 | ECG_ITS ---
Test Reason : SHORTNESS OF BREATH Blood Pressure : / mmHG Vent. Rate : 093 BPM Atrial Rate : 093 BPM P-R Int : 130 ms QRS Dur : 086 ms QT Int : 390 ms P-R-T Axes : 048 -02 043 degrees QTc Int : 484 ms Normal sinus rhythm Normal ECG When compared with ECG of 22-JUN-2023 11:04, No significant change was found Referred By: Jina Bonilla Electronically Signed By:APRIL BALL MD
[2024-11-06 19:43] LABS: Amphetamine Screen Urine Not Detected (Not Detect); Barbiturates, Urine Not Detected (Not Detect); Benzodiazepines Screen Urine Not Detected (Not Detect); Buprenorphine Scr Not Detected (Not Detect); Cannabinoid Screen Urine Not Detected (Not Detect); Cocaine Screen Urine Not Detected (Not Detect); Fentanyl, urine Not Detected (Not Detect); Methadone Screen, Urine Not Detected (Not Detect); Opiate Screen Urine POSITIVE (Not Detect); Oxycodone Screen Urine Positive (Not Detect); Phencyclidine Screen Urine Not Detected (Not Detect)
[2024-11-06 19:56] LABS: Appearance Urine Clear; Color Urine Dark Yellow; Glucose Urine UA Negative (Negative); Leukocyte Esterase Urine Negative (Negative); Nitrite Urine Negative (Negative); Urine Blood Negative (Negative); Urine Ketones Trace mg/dL (Negative); Urine Protein Trace mg/dL (Neg-Trace)
[2024-11-06 20:09] LABS: Troponin-I High Sensitivity 10.5 ng/L (<3.5-17.0)
[2024-11-06 22:18] VITALS: BP 157/101; PULSE 92; RESP 20; TEMP 36.8; O2SAT 96
--- NOTE | 2024-11-06 22:35 | PC.NURSE ---
confirmed meds with pt and pt's daughter. pt gets meds filled at [facility]. will ask MD mayfield to continue home med orders
[2024-11-06] MEDS: Acetaminophen 325 MG TABLET 650 MG PO (23:35)
[2024-11-06] MEDS: Zolpidem Tartrate 5 MG TABLET 10 MG PO (23:35)
[2024-11-06] MEDS: Amitriptyline HCl 25 MG TABLET PO (23:35)
[2024-11-06] MEDS: clonazePAM 0.5 MG TABLET PO (23:36)
[2024-11-06] MEDS: Pregabalin 200 MG CAPSULE PO (23:45)
[2024-11-07] VITALS (7 sets, daily range): BP systolic 106–151; BP diastolic 74–89; PULSE 72–97; RESP 16–18; TEMP 36.6–36.8; O2SAT 93–98
--- NOTE | 2024-11-07 05:36 | PC.NURSE ---
pt sleeping comfortably, in no apparent distress, call larson within reach. plan for pt to be re-evaluated by care team this AM. no SI/HI.
[2024-11-07] MEDS: amLODIPine Besylate 5 MG TABLET PO (09:43)
[2024-11-07] MEDS: Venlafaxine HCl ER 150 MG CAP.ER.24H PO (09:43)
[2024-11-07] MEDS: Omeprazole 20 MG CAPSULE.DR PO (09:43)
[2024-11-07] MEDS: oxyCODONE HCl Immed Release 5 MG TABLET PO ×3 (09:43→21:22)
[2024-11-07] MEDS: Ezetimibe 10 MG TABLET PO (09:43)
[2024-11-07] MEDS: Pregabalin 200 MG CAPSULE PO (10:30)
[2024-11-07] MEDS: Fluticasone/Umeclidinium/Vilanterol 200/62.5/25 BLST.W.DEV 1 PUFF INHALE (11:16)
--- NOTE | 2024-11-07 11:26 | PC.NURSE ---
received report from Allison freitas and patient moved over to [facility]
[2024-11-07 11:40] LABS: Vitamin D 25-OH Total 38.8 ng/mL (>30)
[2024-11-07 11:53] LABS: Folate 16.1 ng/mL (> or = 4.0); Vitamin B12 709 pg/mL (200-900)
--- NOTE | 2024-11-07 14:29 | PC.NURSE ---
Viviana from psychiatry speaking with the patient
--- NOTE | 2024-11-07 15:35 | MHC.CARE ---
Patient seen by psychiatry, she is Mariya IPLOC. Agreeable to this LOC at this time.
--- NOTE | 2024-11-07 15:45 | PC.NURSE ---
pt is going in patient psych
[2024-11-07] MEDS: SUMAtriptan succinate 100 MG TABLET PO (16:21)
--- NOTE | 2024-11-07 16:46 | PM.PSYCN ---
History of Present Illness Date of Service: 11/10/2024 Chief Complaint: SOB not eating unable to swollow Reason for Consult: paranoia Discussed with referring provider: Yes Sources of Information: patient interviewed, chart reviewed and crisis/core team assessment reviewed HPI Narrative: Ms. Lord is a 64 year-old woman who was brought in by her daughter reporting increased paranoid ideas towards neighbors, increasingly more anxious thinking neighbors are trying to harm her for the past 4 months. In the ED, utox is oxycodone which she is prescribed. No prior hx of psychosis or delusions. She does have a hx depression and received outpatient tx at [facility]. Met with pt and her daughter. Pt reports about 4 months she noticed her neighbors were smoking crack cocaine. She reports she never saw them smoking, nor notice any smoke in her house but attributes neighbors using crack worsening symptoms of asthma. She reports more recently she can hear them from her apartment say things like we are going to kill you. She reports she is not able to sleep and is very anxious most of the time. She has stayed at a friend's house, but she there is only so many days she can stay at other people's houses. She can't stay at her daughters. Daughter reports she has stayed with her at the house and has not witnessed what pt is reporting. She denies SI/HI. Past Psychiatric History: Inpt: none prior OP: [facility] Past medication trials: amitriptyline, Medical Evaluation Reviewed: Yes Review of Systems Review of Systems pt reports intermittent migraines No SOB. No chest pain. No diarrhea PMFSH Medical History Diverticulosis Tubular adenoma BMI 36.0-36.9,adult BMI 37.0-37.9, adult Morbid obesity due to excess calories Sleep apnea Migraines Arthritis Insomnia Depression Personal history of solitary pulmonary nodule Asthma Type 2 diabetes mellitus Fibromyalgia Surgical History Hx of colonoscopy History of foot surgery History of right cataract surgery History of bilateral carpal tunnel release Hx laparoscopic cholecystectomy History of sleeve gastrectomy Substance History: sporadic use of cannabis Trauma History: not reported Diagnostics Vital Signs (24Hr): Vital Signs - 24 hr 11/06/24 17:51 11/06/24 22:18 11/07/24 00:04 Temperature 97.9 F 98.3 F 97.8 F Pulse Rate 94 92 89 Respiratory Rate 16 20 18 Blood Pressure 144/95 H 157/101 H 151/88 H Pulse Oximetry 100 96 94 Oxygen Delivery Method Room Air Room Air Room Air 11/07/24 02:55 11/07/24 04:31 11/07/24 09:43 Temperature 98 F Pulse Rate 72 73 Respiratory Rate 18 16 Blood Pressure 128/78 123/77 135/86 Pulse Oximetry 93 96 Oxygen Delivery Method Room Air Room Air 11/07/24 09:47 11/07/24 15:00 Temperature 97.8 F 98.1 F Pulse Rate 83 96 Respiratory Rate 16 18 Blood Pressure 135/86 130/89 Pulse Oximetry 96 96 Oxygen Delivery Method Room Air Room Air BMI result Body Mass Index 28.7 Labs 11/06/24 17:01 11/06/24 17:01 Labs: Laboratory Results - last 48 hr 11/06/24 11/06/24 11/06/24 17:01 18:03 19:25 WBC 7.7 RBC 4.19 L Hgb 13.0 Hct 37.5 MCV 89.5 MCH 31.0 MCHC 34.7 RDW 14.2 Plt Count 294 D MPV 9.8 Immature Gran % (Auto) 0.4 Neut % (Auto) 59.1 Lymph % (Auto) 31.0 Gila % (Auto) 7.7 Eos % (Auto) 1.0 Baso % (Auto) 0.8 Lymph # (Auto) 2.4 Gila # (Auto) 0.6 Eos # (Auto) 0.1 Baso # (Auto) 0.1 Abs Immat Gran (auto) 0.03 Absolute Neuts (auto) 4.6 Absolute Nucleated RBC 0.000 Nucleated RBC % (auto) 0.0 Sodium 142 Potassium 3.8 Chloride 108 Carbon Dioxide 23 Anion Gap 15 BUN 9 Creatinine 0.67 Estim Creat Clear Calc 68.3 Estimated GFR > 60 Random Glucose 113 Calcium 9.8 Total Bilirubin 0.5 AST 31 ALT 21 Alkaline Phosphatase 96 Troponin I High Sens 10.5 D Total Protein 7.6 Albumin 4.4 Vitamin B12 25-OH Vitamin D Total Folate Urine Color Dark Yellow Urine Appearance Clear Urine pH 6.0 Ur Specific [facility] 1.020 Urine Protein Trace Urine Glucose (UA) Negative Urine Ketones Trace Urine Blood Negative Urine Nitrite Negative Ur Leukocyte Esterase Negative Salicylates < 5.0 L Urine Opiates Screen POSITIVE H Ur Buprenorphine Scrn Not Detected Ur Oxycodone Screen Positive H Urine Methadone Screen Not Detected Urine Fentanyl Screen Not Detected Acetaminophen 3 Ur Barbiturates Screen Not Detected Ur Phencyclidine Scrn Not Detected Ur Amphetamines Screen Not Detected U Benzodiazepines Scrn Not Detected Urine Cocaine Screen Not Detected U Marijuana (THC) Screen Not Detected Ethyl Alcohol < 10 Influenza Type A (PCR) NEGATIVE Influenza Type B (PCR) NEGATIVE RSV RNA Qual (PCR) NEGATIVE SARS-CoV-2 RNA (RT-PCR) NEGATIVE S. pyogenes GrpA KAREN Negative 11/07/24 11:00 WBC RBC Hgb Hct MCV MCH MCHC RDW Plt Count MPV Immature Gran % (Auto) Neut % (Auto) Lymph % (Auto) Gila % (Auto) Eos % (Auto) Baso % (Auto) Lymph # (Auto) Gila # (Auto) Eos # (Auto) Baso # (Auto) Abs Immat Gran (auto) Absolute Neuts (auto) Absolute Nucleated RBC Nucleated RBC % (auto) Sodium Potassium Chloride Carbon Dioxide Anion Gap BUN Creatinine Estim Creat Clear Calc Estimated GFR Random Glucose Calcium Total Bilirubin AST ALT Alkaline Phosphatase Troponin I High Sens Total Protein Albumin Vitamin B12 709 25-OH Vitamin D Total 38.8 Folate 16.1 Urine Color Urine Appearance Urine pH Ur Specific [facility] Urine Protein Urine Glucose (UA) Urine Ketones Urine Blood Urine Nitrite Ur Leukocyte Esterase Salicylates Urine Opiates Screen Ur Buprenorphine Scrn Ur Oxycodone Screen Urine Methadone Screen Urine Fentanyl Screen Acetaminophen Ur Barbiturates Screen Ur Phencyclidine Scrn Ur Amphetamines Screen U Benzodiazepines Scrn Urine Cocaine Screen U Marijuana (THC) Screen Ethyl Alcohol Influenza Type A (PCR) Influenza Type B (PCR) RSV RNA Qual (PCR) SARS-CoV-2 RNA (RT-PCR) S. pyogenes GrpA KAREN Mental Status Exam Mental Status Exam Narrative: Appearance: wearing hospital gown, fair hygiene, in NAD Behavior: cooperative Psychomotor: no agitation or retardation noted. Speech: clear, normal rate/rhythm/volume, spontaneous TP: linear TC: fear of neighbors Mood: anxious Affect: congruent SI: none HI: none VH/AH: at home hearing neighbors talk about her Delusions: paranoid delusions towards neighbors Insight/judgment: poor x 2. Memory/cog: alert, oriented to place, month, year, situation. However, recommend MOCA and ACL as suspect vascular type of cognitive impairment. Medications Medications Current Medications Acetaminophen (Acetaminophen 325 Mg Tablet) 325 mg PO Q12H PRN PRN Reason: Pain, Severe (Pain Scale 7-10) Albuterol Sulfate (Albuterol Sulfate 90 Mcg 8 Gm Inhaler) 2 puff INHALE Q4H PRN PRN Reason: for wheezing Amitriptyline HCl (Amitriptyline Hcl 25 Mg Tablet) 25 mg PO BEDTIME [facility] Last Admin: 11/06/24 23:35 Dose: 25 mg Amlodipine Besylate (Amlodipine Besylate 5 Mg Tablet) 5 mg PO DAILY [facility]; Protocol Last Admin: 11/07/24 09:43 Dose: 5 mg Clonazepam (Clonazepam 0.5 Mg Tablet) 0.5 mg PO BEDTIME [facility] Last Admin: 11/06/24 23:36 Dose: 0.5 mg Ezetimibe (Ezetimibe 10 Mg Tablet) 10 mg PO DAILY [facility] Last Admin: 11/07/24 09:43 Dose: 10 mg Fluticasone/Umeclidinium/Vilanterol (Fluticasone/Umeclidinium/Vilanterol 200/62.5/25 Blst.W.Dev) 1 puff INHALE DAILY [facility] Last Admin: 11/07/24 11:16 Dose: 1 puff Hydroxyzine HCl (Hydroxyzine Hcl 25 Mg Tablet) 25 mg PO Q12H PRN PRN Reason: itch Omeprazole (Omeprazole 20 Mg Capsule.Dr) 20 mg PO DAILY@0730 [facility] Last Admin: 11/07/24 09:43 Dose: 20 mg Oxycodone HCl (Oxycodone Hcl Immed Release 5 Mg Tablet) 5 mg PO TID PRN PRN Reason: Pain, Moderate(Pain Scale 4-6) Last Admin: 11/07/24 15:02 Dose: 5 mg Pregabalin (Pregabalin 200 Mg Capsule) 200 mg PO BID [facility] Last Admin: 11/07/24 10:30 Dose: 200 mg Sumatriptan Succinate (Sumatriptan Succinate 100 Mg Tablet) 100 mg PO DAILY MRX1 PRN PRN Reason: Migraine Headache Last Admin: 11/07/24 16:21 Dose: 100 mg Theophylline (Theophylline Anhydrous Er 400 Mg Tab.Er.24h) 400 mg PO BEDTIME [facility] Last Admin: 11/06/24 23:40 Dose: Not Given Venlafaxine HCl (Venlafaxine Hcl Er 150 Mg Cap.Er.24h) 150 mg PO DAILY [facility] Last Admin: 11/07/24 09:43 Dose: 150 mg Zolpidem Tartrate (Zolpidem Tartrate 5 Mg Tablet) 5 mg PO BEDTIME PRN PRN Reason: Insomnia Zolpidem Tartrate (Zolpidem Tartrate 5 Mg Tablet) 10 mg PO BEDTIME [facility] Last Admin: 11/06/24 23:35 Dose: 10 mg Allergies Allergies Allergy/AdvReac Type Severity Reaction Status Date / Time alendronate sodium Allergy Mild HIVES Verified 11/06/24 15:10 [From FOSAMAX] atorvastatin [Lipitor] Allergy Unknown Hives Verified 11/06/24 15:10 Assessment & Plan Assessment & Plan (1) Psychosis: Status: Acute Code(s): F29 - Unspecified psychosis not due to a substance or known physiological condition Plan Mrs. Lord is a 64 year-old who came with her daughter due to paranoid delusions and auditory hallucination in the for 4 months. She has no prior hx of psychosis or delusions. She does not present as delirious to explain delusions or psychosis. I suspect most likely related to underlying cognitive impairments/dementia of vascular type- but further cognitive/memory assessments need to be completed. Discussed with daughter and pt, admission to [facility] to clarify dx and medication changes. PLAN 1. voluntary bedsearch at [facility] for clarification of dx (most likely psychosis/delusions in setting of dementia) and medication management. Pt and daughter in agreement with plan. Total time managing care of this patient today ____ minutes.
[2024-11-07] MEDS: Acetaminophen 325 MG TABLET PO (19:02)
--- NOTE | 2024-11-07 19:32 | PC.NURSE ---
aptient appears to remain at rest presently respirations are even and unlabored patient appears in no distress, using phone ad chato and able to let her needs be known.
--- NOTE | 2024-11-07 20:39 | PC.NURSE ---
Med not stocked in this pyxis, pharmacy called, will deliver dose.
--- NOTE | 2024-11-07 20:47 | PHA.MEDREC ---
Pharmacy Consult ? Medication Reconciliation Pharmacy has completed the medication reconciliation. Med rec done by nursing but only partially completed. Fixed incomplete orders based on claim history. Nursing noted they spoke to family and that RXs are filled at [facility]. Went by [facility] claims.
[2024-11-07] MEDS: Amitriptyline HCl 25 MG TABLET PO (21:21)
[2024-11-07] MEDS: Theophylline Anhydrous ER 400 MG TAB.ER.24H PO (21:21)
[2024-11-07] MEDS: clonazePAM 0.5 MG TABLET PO (21:22)
[2024-11-07] MEDS: Zolpidem Tartrate 5 MG TABLET 10 MG PO (21:22)
[2024-11-07] MEDS: Pregabalin 150 MG CAPSULE PO (21:23)
--- NOTE | 2024-11-08 00:58 | PC.NURSE ---
patient appeared to have broken sleep, a little bit restless, offered and provided warm blanket
--- NOTE | 2024-11-08 04:25 | PC.NURSE ---
resumed care of pt at 0300 - pt continues to appear asleep in no apparent distress. respirations even/unlabored. pt remains [facility] bed search at this time. plan of care ongoing.
[2024-11-08 05:52] VITALS: BP 98/64; PULSE 94; RESP 19; TEMP 36.7; O2SAT 97
--- NOTE | 2024-11-08 07:11 | PC.NURSE ---
Assumed care of patient at 0645, patient is no apparent distress this am, currently showering, offering no complaints. Continue plan of care for inpatient bedsearch
[2024-11-08] MEDS: Pregabalin 150 MG CAPSULE PO (08:16)
[2024-11-08] MEDS: amLODIPine Besylate 5 MG TABLET PO (08:16)
[2024-11-08] MEDS: Omeprazole 20 MG CAPSULE.DR PO (08:16)
[2024-11-08] MEDS: Ezetimibe 10 MG TABLET PO (08:16)
[2024-11-08] MEDS: Fluticasone/Umeclidinium/Vilanterol 200/62.5/25 BLST.W.DEV 1 PUFF INHALE (08:16)
[2024-11-08] MEDS: Venlafaxine HCl ER 150 MG CAP.ER.24H PO (08:16)
[2024-11-08] MEDS: oxyCODONE HCl Immed Release 5 MG TABLET PO ×2 (08:20→15:29)
[2024-11-08] MEDS: Topiramate 25 MG TABLET 50 MG PO (08:38)
[2024-11-08] MEDS: Lidocaine 4 % Patch ADH..PATCH 1 PATCH TRANSDERMA (08:38)
--- NOTE | 2024-11-08 09:47 | MHC.CARE ---
Pt was accepted to [facility] for today 11/08/24 by Kira. The accepting provider is Dr. Lora and the ETA is 3pm. The address is [address] [place] [address]. [facility] will call to conduct nurse report. CARE Team and pod RN have been notified of placement.
[2024-11-08 12:53] VITALS: BP 102/66; PULSE 86; RESP 16; TEMP 36.7; O2SAT 99
[2024-11-08] MEDS: hydrOXYzine HCL 25 MG TABLET PO (15:28)
[2024-11-08 15:39] VITALS: BP 124/78; PULSE 97; RESP 18; TEMP 36.7; O2SAT 97
== END 2024-11-08 16:33 | disposition still patient (30) ==
PROVIDERS: Emergency Medicine; Physician Assistant; Social Worker; Emergency Provider Emergency Medicine; PCP Internal Medicine Geriatric Medicine
DX: F32.A Depression, unspecified (principal); R06.02 Shortness of breath; F29 Unspecified psychosis not due to a substance or known physiological condition; Z03.818 Encounter for observation for suspected exposure to other biological agents ruled out; E11.9 Type 2 diabetes mellitus without complications; J45.909 Unspecified asthma, uncomplicated; G89.4 Chronic pain syndrome; Z79.891 Long term (current) use of opiate analgesic; Z87.891 Personal history of nicotine dependence; Z79.899 Other long term (current) drug therapy
CPT/HCPCS: 0241U; 36415; 71045; 80053; 80143; 80179; 80307; 81003; 82306; 82607; 82746; 84484; 85025; 87651; 93005; 99285; S9485

== ENCOUNTER → 2024-11-06 18:49 | Outpatient (BNV) | payer OTHER, SELFPAY | PROVIDERS: Emergency Provider Emergency Medicine; PCP Internal Medicine Geriatric Medicine; Visit Provider Social Worker | DX: F29 Unspecified psychosis not due to a substance or known physiological condition (principal) | CPT/HCPCS: 99285 ==

== ENCOUNTER → 2024-11-06 19:03 | Outpatient (BNV) | payer OTHER, SELFPAY | PROVIDERS: Emergency Provider Emergency Medicine; PCP Internal Medicine Geriatric Medicine; Visit Provider Specialist | DX: R06.00 Dyspnea, unspecified (principal) | CPT/HCPCS: 71045 ==

== ENCOUNTER → 2024-11-06 19:03 | Outpatient (BNV) | payer OTHER, SELFPAY | PROVIDERS: Emergency Provider Emergency Medicine; PCP Internal Medicine Geriatric Medicine; Visit Provider Internal Medicine Cardiovascular Disease | DX: R06.02 Shortness of breath (principal) | CPT/HCPCS: 93010 ==

== ENCOUNTER 2024-11-18 11:28 | Inpatient (IN) | payer OTHER, SELFPAY ==
[2024-11-18] VITALS (9 sets, daily range): BP systolic 113–144; BP diastolic 56–84; PULSE 98–109; RESP 18–20; TEMP 37.1–38.4; O2SAT 96–97; BMI 29.3
--- NOTE | ~2024-11-18 | CT_ITS ---
CLINICAL HISTORY: COughing. fever. Pneumonia? CT chest without contrast Comparison: CT/AZ/SR - CT CHEST WO IV CON - 07/10/24 09:05 EDT Findings: Clustered centrilobular and tree-in-bud nodules in the right lower lobe and in the left lower lobe are nonspecific but are new from 07/10/2024 exam and most likely represent infectious process. There is no consolidation. No pleural effusion, pneumothorax, or other significant pleural abnormality. Heart size normal. No pericardial effusion. No thoracic aortic aneurysm. Normal diameter central pulmonary arteries. No acute finding in the partially visualized upper abdomen. No acute fracture. No suspicious lytic or blastic bone lesion. IMPRESSION: 1. Clustered centrilobular and tree-in-bud nodules in the lower lobes are nonspecific but most likely reflect atypical infectious or inflammatory process. This document has been electronically signed by: Jame Wagner MD on 11/18/2024 19:03:40
--- NOTE | ~2024-11-18 | CT_ITS ---
CLINICAL HISTORY: fever CT abdomen and pelvis without contrast Comparison: None Findings: Clustered centrilobular and tree-in-bud nodules in the bilateral lower lobes. Cholecystectomy changes. Normal unenhanced liver, pancreas, spleen, and adrenal glands. No findings of urinary tract calculus, obstruction, or inflammation. Uterus and ovaries within normal limits. No free fluid or free air within the abdomen or pelvis. Sleeve gastrectomy changes. No significant abnormality of the stomach, small bowel, or colon otherwise. Grade 2 degenerative anterolisthesis of L4 on L5 measuring 9 mm. Pcnruxcv-ru-[id number] lumbar spine degenerative changes worst at L4-L5. No acute fracture or suspicious bone lesion. IMPRESSION: 1. Clustered nodularity in the lung bases consistent with infectious process. 2. Otherwise no acute finding. This document has been electronically signed by: Jame Wagner MD on 11/18/2024 19:15:07
--- NOTE | ~2024-11-18 | XR_ITS ---
EXAMINATION: XR CHEST CLINICAL INFORMATION: dyspnea COMPARISON: X-ray dated November 06, 2024. TECHNIQUE: 2 views of the chest were obtained. FINDINGS: No consolidation, pleural effusion or pneumothorax. Pulmonary reticular pattern. Cardiomediastinal silhouette is normal in size. Multilevel thoracic and upper lumbar spondylosis. S-shaped curvature of the thoracolumbar spine. Osteopenia versus osteoporosis. Vascular clips in the right upper quadrant abdomen. XR/XR chest 2V IMPRESSION: Chronic interstitial lung disease. No acute airspace disease. Electronically signed by: Dinesh Mcgregor MD 11/18/2024 01:44 PM EST
--- NOTE | 2024-11-18 13:07 | ED_ITS ---
HPI - General Adult General Chief complaint: Dyspnea Stated complaint: diff breathing chest pain vomiting Time Seen by Provider: 11/18/24 14:34 Source: patient Mode of arrival: ambulatory Limitations: no limitations History of Present Illness ED Provider: Christopher Germain HPI narrative: 64-year-old female history of asthma COPD, psychosis abdominal ecchymosis, tublar adenoma presents to the ED for shortness of breath, coughing up green phlegm, fever, and chills for at least a week. Patient states no relief with nebulizer. Patient denies any leg swelling, coughing up blood, or pleurisy. Daughter states patient has been on steroids with no improvement. Related Data Home Medications ?Medication ?Instructions ?Recorded ?Confirmed clonazepam 0.5 mg tablet 0.5 mg PO BEDTIME 05/25/21 11/06/24 albuterol sulfate 2.5 mg/3 mL 1 inhalation QID 11/06/24 11/06/24 (0.083 %) solution for nebulization amitriptyline 25 mg tablet 25 mg PO BEDTIME 11/06/24 11/06/24 amlodipine 5 mg tablet 5 mg QAM 11/06/24 11/06/24 ezetimibe 10 mg tablet 10 mg QAM 11/06/24 11/06/24 hydroxyzine HCl 25 mg tablet 25 mg PO Q12H PRN itch 11/06/24 11/06/24 ibuprofen 800 mg tablet (IBU) 800 mg PO Q8H PRN pain 11/06/24 11/06/24 lidocaine 5 % topical patch 1 patch topical DAILY 11/06/24 11/07/24 lidocaine-prilocaine 2.5 %-2.5 % 1 appl topical DAILY 11/06/24 11/07/24 topical cream omeprazole 20 mg capsule,delayed 20 mg PO QAM 11/06/24 11/06/24 release oxycodone-acetaminophen 5 mg-325 1 tab PO Q12H PRN severe pain 11/06/24 11/06/24 mg tablet sumatriptan succinate 100 mg tablet 100 mg PO NEEDED 11/06/24 11/06/24 theophylline 400 mg 400 mg PO BEDTIME 11/06/24 11/06/24 tablet,extended release 24 hr topiramate 50 mg tablet 50 mg PO BID 11/06/24 11/07/24 venlafaxine 150 mg 150 mg PO DAILY 11/06/24 11/07/24 capsule,extended release 24 hr zolpidem 10 mg tablet 10 mg BEDTIME 11/06/24 11/06/24 zolpidem 5 mg tablet 5 mg PO BEDTIME PRN Insomnia 11/06/24 11/06/24 estradiol 0.01% (0.1 mg/gram) 1 g vaginal 2XW 11/07/24 vaginal cream pregabalin 150 mg capsule 150 mg PO BID 11/07/24 11/07/24 Previous Rx's ?Medication ?Instructions ?Recorded albuterol sulfate 90 mcg/actuation 2 puff inhalation Q4-6H PRN for 10/10/24 aerosol inhaler (Ventolin HFA) wheezing #18 grams Trelegy Ellipta 200 mcg-62.5 1 inh inhalation DAILY 30 days #1 10/31/24 mcg-25 mcg powder for inhalation ea ([id number]) Allergies Allergy/AdvReac Type Severity Reaction Status Date / Time alendronate sodium Allergy Mild HIVES Verified 11/18/24 13:38 [From FOSAMAX] atorvastatin [Lipitor] Allergy Unknown Hives Verified 11/18/24 13:38 Review of Systems 2 Review of Systems: Coughing, SOB, green phglegm Yes all other systems are reviewed and are negative PMFSH Past Medical History Medical History Diverticulosis Tubular adenoma BMI 36.0-36.9,adult BMI 37.0-37.9, adult Morbid obesity due to excess calories Sleep apnea Migraines Arthritis Insomnia Depression Personal history of solitary pulmonary nodule Asthma Type 2 diabetes mellitus Fibromyalgia Surgical History Hx of colonoscopy History of foot surgery History of right cataract surgery History of bilateral carpal tunnel release Hx laparoscopic cholecystectomy History of sleeve gastrectomy Family History Family History Father No problems noted. Mother Diabetes Brother No problems noted. Brother No problems noted. Brother No problems noted. Sister No problems noted. Sister No problems noted. Sister No problems noted. Daughter No problems noted. Social History Social History Unable to assess alcohol history related to: Unknown Alcohol intake: never Patient Tobacco Use Status: Former Tobacco user Use of substances other than those prescribed or required for medical reasons: Unknown Substance Use Type: Marijuana Advance Directives: No Advance Directives Information Provided: Yes Do you have a plan to hurt others: No Plan Physical Exam ED Vital Signs: Vital Signs - 24 hr 11/18/24 13:37 11/18/24 14:57 11/18/24 15:53 Temperature 99.8 F 101.1 F H Pulse Rate 109 H 109 H 106 H Respiratory Rate 18 18 20 Blood Pressure 140/77 H 142/78 H Pulse Oximetry 96 Oxygen Delivery Method Room Air 11/18/24 16:49 11/18/24 17:46 11/18/24 19:38 Temperature 99.4 F 99 F Pulse Rate 98 98 108 H Respiratory Rate 20 20 20 Blood Pressure 142/80 H 142/84 H Pulse Oximetry 96 97 Oxygen Delivery Method Room Air Room Air BMI result Body Mass Index 29.3 Const General: cooperative, healthy appearing, comfortable, no acute distress, well developed, alert, awake and Physically active [facility] Head: Yes normal to inspection, Yes No palpable skull fracture present, Yes normocephalic and Yes atraumatic Throat: Yes posterior oropharynx normal, Yes tonsils normal and Yes uvula midline Eyes General: appearance normal, both eyes and all related structures Visual Conte: normal visual conte by confrontation Alignment and Position: alignment normal Periorbital: periorbital findings normal Eyelids: Yes eyelids normal Conjunctivae: conjunctivae normal Sclerae: sclerae normal Corneas: corneas normal Pupils: Equal, round and reactive pupils present EOM: EOMs intact bilaterally Neck Neck: Yes normal visual inspection, Yes full ROM, Yes no lymphadenopathy, Yes no meningeal signs, Yes trachea midline, Yes supple, No anterior neck swelling and No tender Chest Chest palpation & inspection: normal inspection of the chest and normal palpation of entire chest wall Resp Effort & Inspection: normal respiratory effort and able to speak in complete sentences Auscultation: wheezes expiratory wheezes and throughout Cardio Jugular venous distension: no JVD Heart sounds: S1 normal heart sound present and S2 normal heart sound present GI Inspection: Yes normal to inspection Palpation (GI): Soft to palpation, not firm, nontender, no guarding and not rigid General: Yes no CVA tenderness Back/Spine/Pelvis Back: no CVA tenderness and No back tenderness Skin General skin exam: no rashes or lesions noted, elasticity normal and turgor normal Neuro General: gait normal, tone normal, moves all extremities, Normal light touch and pain sensation, no meningeal signs, no focal motor deficits, CN's II-XI intact bilaterally and normal sensation to monofilament Cranial nerves: Yes Equal, round and reactive pupils present Extrem Other: Bilateral lower extremity negative for swelling, pitting edema, or calf tenderness. General: Yes normal to inspection, Yes full ROM and Yes capillary refill normal Psych Appearance: grossly normal, well kempt and not disheveled Course Course Course Narrative: This is a rapid medical exam performed by Willis Vital NP: Additional HPI, ROS, PE not included below will be deferred to primary provider. Patient is a 64-year-old female with history of asthma/COPD overlap syndrome, s/p sleeve gastrectomy presenting to the ED with complaint of shortness of breath, fever, chills, vomiting this morning, mild confusion, constipation and difficulty urinating. Has been drinking fluids today. Patient is awake, A+Ox3, in no acute distress, slightly tachycardic at 109, lungs diminished, RRR, ambulating independently with steady gait. Plan: labs, CXR, viral serology, EKG UA Medications Administered Discontinued Medications Generic Name Dose Route Start Last Admin Trade Name Freq PRN Reason Stop Dose Admin Acetaminophen 975 mg 11/18/24 15:50 11/18/24 17:04 Acetaminophen 325 Mg Tablet PO 11/18/24 15:51 975 mg ONCE ONE Administration Albuterol Sulfate 2.5 mg/ 5 mg 11/18/24 19:37 11/18/24 19:38 Albuterol Sulfate 2.5 mg INHALE 11/18/24 19:38 5 mg ONCE ONE Administration Ceftriaxone Sodium 1 gm 11/18/24 16:17 11/18/24 16:38 Ceftriaxone Sodium 1 Gm Vial IVPUSH 11/18/24 16:18 1 gm ONCE ONE Administration Albuterol Sulfate 2.5 mg/ 0 mg 11/18/24 14:50 11/18/24 14:56 Albuterol/Ipratropium 3 ml INHALE 11/18/24 14:51 1 dose ONCE ONE Administration Magnesium Sulfate 2 gm in 50 mls @ 25 mls/hr 11/18/24 14:41 11/18/24 17:55 Magnesium Sulfate/H2o IV 11/18/24 16:40 0 mls/hr ONCE ONE Infusion Sodium Chloride 1,000 mls @ 999 mls/hr 11/18/24 16:04 11/18/24 19:58 Ns IV 11/18/24 17:04 Infused .Q1H1M STA Infusion Azithromycin 500 mg/ Sodium 250 mls @ 125 mls/hr 11/18/24 16:22 11/18/24 17:45 Chloride IV 11/18/24 18:21 125 mls/hr ONCE ONE Administration Methylprednisolone Sodium Succinate 125 mg 11/18/24 15:07 11/18/24 16:50 Methylprednisolone Sod Succ 125 Mg/2 Ml Vial IVPUSH 11/18/24 15:08 125 mg ONCE ONE Administration Potassium Chloride 40 meq 11/18/24 14:41 11/18/24 16:56 Potassium Chloride Packet 20 Meq Packet PO 11/18/24 14:42 40 meq ONCE ONE Administration Medical Decision Making Medical Decision Making MDM Narrative: 64-year-old female presents to ED for coughing shortness of breath fever and chills now with profuse expiratory wheezing throughout lungs. ED bronchodilator, magnesium ordered. SARs strep pending. Chest x-ray negative pneumonia. First troponin negative. BNP -43. 15:53pm: Patient is febrile tachycardic white blood cell count [id number]. Code sepsis called. Lactate blood culture ordered. Fluids IV antibiotics ordered. Patient is coughing up green phlegm. Who will treat as early pneumonia COVID asthma exacerbation. Patient is still wheezing. CT abdomen chest ordered. 2nd troponin is negative. UA pending 7:37pm: Patient's chest CT shows infectious process. Patient will be admitted for COPD exacerbation. Patient is still having wheezing another bronchodilator ordered. Case presented to and accepted by Dr. Chang hospitalist Differential Diagnosis Differential Diagnoses: The differential diagnosis associated with the presentation includes (Asthma COPD exacerbation, pneumonia, RSV, COVID) Admission/Observation Consideration of admission/observation: Escalation of care including admission/observation considered Consult Healthcare Provider Management of the patient was discussed with: Hospitalist (Dr. Dumont) Lab Data [facility] Lab Attestation statement: I reviewed the patient's lab results. 11/18/24 13:29 11/18/24 13:29 Labs: Lab Results 11/18/24 11/18/24 11/18/24 Range/Units 13:28 13:29 15:48 WBC 12.1 H (4.8-10.8) X10*3/uL RBC 4.05 L (4.20-5.50) X10*6/uL Hgb 12.4 (12.0-16.0) g/dl Hct 35.5 L (37.0-47.0) % MCV 87.7 (80.0-98.0) fL MCH 30.6 (27.0-33.0) pg MCHC 34.9 (31.0-35.0) g/dl RDW 13.9 (11.0-16.0) % Plt Count 211 D (160-400) X10*3/uL MPV 10.4 (9.4-12.3) fL Immature Gran % (Auto) 0.7 H (0.0-0.4) % Neut % (Auto) 85.0 H (45-73) % Lymph % (Auto) 9.3 L (20-40) % Louisa % (Auto) 4.6 (2-11) % Eos % (Auto) 0.1 (0-4) % Baso % (Auto) 0.3 (0-2) % Lymph # (Auto) 1.1 L (1.2-4.9) X10*3/uL Louisa # (Auto) 0.6 (0.1-1.2) X10*3/uL Eos # (Auto) 0.0 (0.0-0.4) X10*3/uL Baso # (Auto) 0.0 (0.0-0.2) X10*3/uL Abs Immat Gran (auto) 0.08 H (0.00-0.03) X10*3/uL Absolute Neuts (auto) 10.3 H (2.0-8.3) x10*3/uL Absolute Nucleated RBC 0.000 (0.0-0.012) X10*3/uL Nucleated RBC % (auto) 0.0 (0.0-0.2) /100WBC PT 14.0 H (10.9-12.4) SEC INR 1.2 H (0.9-1.1) APTT 34.1 (26.0-36.8) SEC Sodium 137 (135-145) mmol/L Potassium 3.2 L (3.3-5.1) mmol/L Chloride 107 (96-108) mmol/L Carbon Dioxide 23 (22-29) mmol/L Anion Gap 10 L (12-20) BUN 7 L (9-16) mg/dL Creatinine 0.74 (0.5-1.4) mg/dL Estim Creat Clear Calc 62.5 Estimated GFR > 60 Random Glucose 144 H (60-115) mg/dL Lactic Acid (0.5-2.0) mmol/L Calcium 9.2 D (8.4-10.2) mg/dL Total Bilirubin 0.5 (0.0-1.0) mg/dL AST 33 H (5-31) U/L ALT 44 H (0-31) U/L Alkaline Phosphatase 125 H (39-117) U/L Troponin I High Sens 9.9 11.4 (<3.5-17.0) ng/L B-Natriuretic Peptide 43 (<100) pg/mL Total Protein 7.5 (6.5-8.0) g/dL Albumin 4.3 (3.5-5.0) g/dL Lipase 23 (8-78) U/L Influenza Type A (PCR) NEGATIVE (Negative) Influenza Type B (PCR) NEGATIVE (Negative) RSV RNA Qual (PCR) NEGATIVE (Negative) SARS-CoV-2 RNA (RT-PCR) NEGATIVE (Negative) 11/18/24 Range/Units 16:29 WBC (4.8-10.8) X10*3/uL RBC (4.20-5.50) X10*6/uL Hgb (12.0-16.0) g/dl Hct (37.0-47.0) % MCV (80.0-98.0) fL MCH (27.0-33.0) pg MCHC (31.0-35.0) g/dl RDW (11.0-16.0) % Plt Count (160-400) X10*3/uL MPV (9.4-12.3) fL Immature Gran % (Auto) (0.0-0.4) % Neut % (Auto) (45-73) % Lymph % (Auto) (20-40) % Louisa % (Auto) (2-11) % Eos % (Auto) (0-4) % Baso % (Auto) (0-2) % Lymph # (Auto) (1.2-4.9) X10*3/uL Louisa # (Auto) (0.1-1.2) X10*3/uL Eos # (Auto) (0.0-0.4) X10*3/uL Baso # (Auto) (0.0-0.2) X10*3/uL Abs Immat Gran (auto) (0.00-0.03) X10*3/uL Absolute Neuts (auto) (2.0-8.3) x10*3/uL Absolute Nucleated RBC (0.0-0.012) X10*3/uL Nucleated RBC % (auto) (0.0-0.2) /100WBC PT (10.9-12.4) SEC INR (0.9-1.1) APTT (26.0-36.8) SEC Sodium (135-145) mmol/L Potassium (3.3-5.1) mmol/L Chloride (96-108) mmol/L Carbon Dioxide (22-29) mmol/L Anion Gap (12-20) BUN (9-16) mg/dL Creatinine (0.5-1.4) mg/dL Estim Creat Clear Calc Estimated GFR Random Glucose (60-115) mg/dL Lactic Acid 1.5 (0.5-2.0) mmol/L Calcium (8.4-10.2) mg/dL Total Bilirubin (0.0-1.0) mg/dL AST (5-31) U/L ALT (0-31) U/L Alkaline Phosphatase (39-117) U/L Troponin I High Sens (<3.5-17.0) ng/L B-Natriuretic Peptide (<100) pg/mL Total Protein (6.5-8.0) g/dL Albumin (3.5-5.0) g/dL Lipase (8-78) U/L Influenza Type A (PCR) (Negative) Influenza Type B (PCR) (Negative) RSV RNA Qual (PCR) (Negative) SARS-CoV-2 RNA (RT-PCR) (Negative) Independent Interpretation I performed an independent interpretation of an: EKG (EKG sinus tach), Plain X- Ray and CT Scan Radiology Impression Discussion of test interpretation with radiology: I have reviewed the radiologist's reading. Independent Historian Clinical information obtained from an independent historian. History obtained from or confirmed by: Other (patient, Daughter) Prescription Management I considered prescription management with: Antibiotic Critical Care Time Critical Care Time Critical Care Time: Yes Total Critical Care Time: 60 Attestation: Positive for pneumonia on chest CT. Patient admitted for COPD pneumonia exacerbation. Long significant wheezing. Antibiotics, nebulizer, magnesium, Solu-Medrol ordered. Walking O2 saturation 95 96% on room air Discharge Plan Discharge Clinical Impression: Community acquired pneumonia, COPD exacerbation Patient Disposition: Admitted As Inpatient
--- NOTE | 2024-11-18 13:11 | ECG_ITS ---
Test Reason : DYSPNEA Blood Pressure : */* mmHG Vent. Rate : 114 BPM Atrial Rate : 114 BPM P-R Int : 130 ms QRS Dur : 82 ms QT Int : 338 ms P-R-T Axes : -1 -15 37 degrees QTcB Int : 465 ms Sinus tachycardia Abnormal ECG When compared with ECG of 06-Nov-2024 19:20, No significant changes seen Referred By: Jeannie Vital Electronically Signed By: Les Muñoz
[2024-11-18 13:33] LABS: MANUAL DIFF FLAG NO
[2024-11-18 13:37] LABS: Basophils Percent Auto 0.3 % (0-2); Eosinophils Percent Auto 0.1 % (0-4); Hematocrit 35.5 % (37.0-47.0); Hemoglobin 12.4 g/dl (12.0-16.0); Imm Gran Abs Auto 0.08 X10*3/uL (0.00-0.03); Imm Gran Pct Auto 0.7 % (0.0-0.4); Lymphocytes Absolute Auto 1.1 X10*3/uL (1.2-4.9); Lymphocytes Percent Auto 9.3 % (20-40); Mean Corpuscular HGB Conc 34.9 g/dl (31.0-35.0); Mean Corpuscular Hemoglobin 30.6 pg (27.0-33.0); Mean Corpuscular Volume 87.7 fL (80.0-98.0); Mean Platelet Volume 10.4 fL (9.4-12.3); Monocytes Absolute Auto 0.6 X10*3/uL (0.1-1.2); Monocytes Percent Auto 4.6 % (2-11); Neutrophils Absolute Auto 10.3 x10*3/uL (2.0-8.3); Platelet Count 211 X10*3/uL (160-400); Red Blood Count 4.05 X10*6/uL (4.20-5.50); Red Cell Distribution Width 13.9 % (11.0-16.0); White Blood Count 12.1 X10*3/uL (4.8-10.8)
[2024-11-18 13:41] LABS: INTERNATIONAL NORM RATIO 1.2 (0.9-1.1)
[2024-11-18 13:52] LABS: Alanine Aminotransferase 44 U/L (0-31); Albumin Level 4.3 g/dL (3.5-5.0); Alkaline Phosphatase 125 U/L (39-117); Anion Gap 10 (12-20); Aspartate Amino Transferase 33 U/L (5-31); Bilirubin Total 0.5 mg/dL (0.0-1.0); Blood Urea Nitrogen 7 mg/dL (9-16); Calcium 9.2 mg/dL (8.4-10.2); Carbon Dioxide 23 mmol/L (22-29); Chloride 107 mmol/L (96-108); Creatinine Clr Calc Pharmacy 62.5; Estimated Glomerular Filt Rate > 60; Glucose Random 144 mg/dL (60-115); Potassium 3.2 mmol/L (3.3-5.1); Sodium 137 mmol/L (135-145); Total Protein 7.5 g/dL (6.5-8.0)
[2024-11-18 13:55] LABS: B Type Natriuretic Peptide 43 pg/mL (<100)
[2024-11-18 13:59] LABS: Troponin-I High Sensitivity 9.9 ng/L (<3.5-17.0)
[2024-11-18 14:51] LABS: Influenza A PCR NEGATIVE (Negative); Influenza B PCR NEGATIVE (Negative); Resp Syncy Virus RNA Qual PCR NEGATIVE (Negative); SARS COV2 PCR INHOUSE NEGATIVE (Negative)
[2024-11-18] MEDS: Albuterol Sulfate 2.5 MG, Albuterol/Iprat 2.5/0.5MG 3 ML 3 ML INHALE (14:56)
[2024-11-18 14:59] LABS: Lipase 23 U/L (8-78)
[2024-11-18 15:01] LABS: Partial Thromboplastin Time 34.1 SEC (26.0-36.8)
--- NOTE | 2024-11-18 15:23 | PC.NURSE ---
Ambulation trial pt was 96% at rest and O2 was 95% RA on ambulation
[2024-11-18] MEDS: cefTRIAXone sodium 1 GM VIAL IVPUSH (16:38)
[2024-11-18] MEDS: methylPREDNISolone Sod Succ 125 MG/2 ML VIAL IVPUSH (16:50)
[2024-11-18] MEDS: Magnesium Sulfate/H2O 2 GM/50 ML PIGGYBACK IV (16:55)
[2024-11-18] MEDS: Potassium Chloride Packet 20 MEQ PACKET 40 MEQ PO (16:56)
[2024-11-18] MEDS: 0.9 % Sodium Chloride 1,000 ML 999 ML IV (17:02)
[2024-11-18] MEDS: Acetaminophen 325 MG TABLET 975 MG PO (17:04)
[2024-11-18 17:07] LABS: Troponin-I High Sensitivity 11.4 ng/L (<3.5-17.0)
[2024-11-18 17:19] LABS: Lactic Acid 1.5 mmol/L (0.5-2.0)
[2024-11-18] MEDS: Azithromycin 500 MG in 0.9 % Sodium Chloride 250 ML 125 MG IV (17:45)
[2024-11-18] MEDS: Albuterol Sulfate 2.5 MG, Albuterol Sulfate (0.083%) 2.5 MG 5 MG INHALE (19:38)
--- NOTE | 2024-11-18 19:48 | P.HPHOSP_ITS ---
History of Present Illness Date of Service: 11/18/24 Chief Complaint: Dyspnea This is a 64-year-old female with pertinent history of asthma-COPD overlap syndrome not on home oxygen, former tobacco use disorder, fibromyalgia, history of sleeve gastrectomy, mood disorder, hypertension, mixed hyperlipidemia, gastroesophageal reflux disease who presents to the emergency department for evaluation of dyspnea. Patient states she has been having dyspnea and cough for the last 2 months. Patient visited urgent care 2 times in the last 2 months for her symptoms. It has been progressive and got worse in the last few days. The dyspnea is worse with exertion and the cough is productive with greenish sputum. Also has associated wheezing. Was febrile prior to presentation. Admits pleuritic chest discomfort, no palpitations. Denies dysuria, no changes in bowel habits. In the emergency department, patient was found to be septic and imaging concerning for pneumonia. Also found to be wheezing despite multiple DuoNeb treatments. Review of Systems 2 Constitutional: Constitutional: Reports fatigue, Reports fever(s), Reports malaise, Reports poor appetite and Reports weakness Cardiovascular: Cardiovascular: Reports dyspnea on exertion Respiratory: Respiratory: Reports cough, Reports dyspnea on exertion and Reports wheezing Gastrointestinal: Gastrointestinal: Reports nausea and Reports vomiting Genitourinary: Genitourinary: Reports no additional female genitourinary complaints Neurologic: Reports weakness Endocrine: Endocrine: Reports fatigue Allergic/Immunologic: Allergic/Immunologic: Reports wheezing [facility] Medical History Diverticulosis Tubular adenoma BMI 36.0-36.9,adult BMI 37.0-37.9, adult Morbid obesity due to excess calories Sleep apnea Migraines Arthritis Insomnia Depression Personal history of solitary pulmonary nodule Asthma Type 2 diabetes mellitus Fibromyalgia Family History Father No problems noted. Mother Diabetes Brother No problems noted. Brother No problems noted. Brother No problems noted. Sister No problems noted. Sister No problems noted. Sister No problems noted. Daughter No problems noted. Surgical History Hx of colonoscopy History of foot surgery History of right cataract surgery History of bilateral carpal tunnel release Hx laparoscopic cholecystectomy History of sleeve gastrectomy Social History Unable to assess alcohol history related to: Unknown Alcohol intake: never Patient Tobacco Use Status: Former Tobacco user Use of substances other than those prescribed or required for medical reasons: Unknown Substance Use Type: Marijuana Advance Directives: No Advance Directives Information Provided: Yes Do you have a plan to hurt others: No Plan Meds Allergies Allergy/AdvReac Type Severity Reaction Status Date / Time alendronate sodium Allergy Mild HIVES Verified 11/18/24 13:38 [From FOSAMAX] atorvastatin [Lipitor] Allergy Unknown Hives Verified 11/18/24 13:38 Active Medications: Current Medications Acetaminophen (Acetaminophen 325 Mg Tablet) 650 mg PO Q6H PRN PRN Reason: Pain, Mild 1-3,fever,headache Sodium Chloride (0.9 % Sodium Chloride Flush 3 Ml Syringe) [facility] Medications ?Medication ?Instructions ?Recorded ?Confirmed ?Last Taken ?Type clonazepam 0.5 mg tablet 0.5 mg PO BEDTIME 05/25/21 11/06/24 Unknown History albuterol sulfate 2.5 mg/3 mL 1 inhalation QID 11/06/24 11/06/24 Unknown History (0.083 %) solution for nebulization amitriptyline 25 mg tablet 25 mg PO BEDTIME 11/06/24 11/06/24 Unknown History amlodipine 5 mg tablet 5 mg QAM 11/06/24 11/06/24 Unknown History ezetimibe 10 mg tablet 10 mg QAM 11/06/24 11/06/24 Unknown History hydroxyzine HCl 25 mg tablet 25 mg PO Q12H PRN itch 11/06/24 11/06/24 Unknown History ibuprofen 800 mg tablet (IBU) 800 mg PO Q8H PRN pain 11/06/24 11/06/24 Unknown History lidocaine 5 % topical patch 1 patch topical DAILY 11/06/24 11/07/24 Unknown History lidocaine-prilocaine 2.5 %-2.5 % 1 appl topical DAILY 11/06/24 11/07/24 Unknown History topical cream omeprazole 20 mg capsule,delayed 20 mg PO QAM 11/06/24 11/06/24 Unknown History release oxycodone-acetaminophen 5 mg-325 1 tab PO Q12H PRN severe pain 11/06/24 11/06/24 Unknown History mg tablet sumatriptan succinate 100 mg tablet 100 mg PO NEEDED 11/06/24 11/06/24 Unknown History theophylline 400 mg 400 mg PO BEDTIME 11/06/24 11/06/24 Unknown History tablet,extended release 24 hr topiramate 50 mg tablet 50 mg PO BID 11/06/24 11/07/24 Unknown History venlafaxine 150 mg 150 mg PO DAILY 11/06/24 11/07/24 Unknown History capsule,extended release 24 hr zolpidem 10 mg tablet 10 mg BEDTIME 11/06/24 11/06/24 Unknown History zolpidem 5 mg tablet 5 mg PO BEDTIME PRN Insomnia 11/06/24 11/06/24 Unknown History estradiol 0.01% (0.1 mg/gram) 1 g vaginal 2XW 11/07/24 Unknown History vaginal cream pregabalin 150 mg capsule 150 mg PO BID 11/07/24 11/07/24 Unknown History Physical Exam 2 Vital Signs and Narrative: Vital Signs: Last Vital Signs Temp 99 F 11/18/24 17:46 Pulse 108 H 11/18/24 19:38 Resp 20 11/18/24 19:38 BP 142/84 H 11/18/24 17:46 Pulse Ox 97 11/18/24 17:46 O2 Del Method Room Air 11/18/24 17:46 BMI result Body Mass Index 29.3 Middle-aged female lying in bed in mild distress Neck supple, no JVD Tachycardia with regular rhythm, S1-S2 heard Bilateral wheezing with tachypnea Abdomen soft nontender, no guarding, no rigidity Patient is awake, alert and oriented to self, place, time and person ; no focal motor deficit Psych: Normal mood No pedal edema Results Labs 11/18/24 13:29 11/18/24 13:29 Labs: Laboratory Results - last 24 hr 11/18/24 11/18/24 11/18/24 13:28 13:29 15:48 MCV 87.7 MCH 30.6 MCHC 34.9 RDW 13.9 Plt Count 211 D MPV 10.4 Immature Gran % (Auto) 0.7 H Neut % (Auto) 85.0 H Lymph % (Auto) 9.3 L [place] % (Auto) 4.6 Eos % (Auto) 0.1 Baso % (Auto) 0.3 Lymph # (Auto) 1.1 L [place] # (Auto) 0.6 Eos # (Auto) 0.0 Baso # (Auto) 0.0 Abs Immat Gran (auto) 0.08 H Absolute Neuts (auto) 10.3 H Absolute Nucleated RBC 0.000 Nucleated RBC % (auto) 0.0 PT 14.0 H INR 1.2 H APTT 34.1 Anion Gap 10 L Estim Creat Clear Calc 62.5 Estimated GFR > 60 Random Glucose 144 H Lactic Acid Calcium 9.2 D Total Bilirubin 0.5 AST 33 H ALT 44 H Alkaline Phosphatase 125 H Troponin I High Sens 9.9 11.4 B-Natriuretic Peptide 43 Total Protein 7.5 Albumin 4.3 Lipase 23 Influenza Type A (PCR) NEGATIVE Influenza Type B (PCR) NEGATIVE RSV RNA Qual (PCR) NEGATIVE SARS-CoV-2 RNA (RT-PCR) NEGATIVE 11/18/24 16:29 MCV MCH MCHC RDW Plt Count MPV Immature Gran % (Auto) Neut % (Auto) Lymph % (Auto) [place] % (Auto) Eos % (Auto) Baso % (Auto) Lymph # (Auto) [place] # (Auto) Eos # (Auto) Baso # (Auto) Abs Immat Gran (auto) Absolute Neuts (auto) Absolute Nucleated RBC Nucleated RBC % (auto) PT INR APTT Anion Gap Estim Creat Clear Calc Estimated GFR Random Glucose Lactic Acid 1.5 Calcium Total Bilirubin AST ALT Alkaline Phosphatase Troponin I High Sens B-Natriuretic Peptide Total Protein Albumin Lipase Influenza Type A (PCR) Influenza Type B (PCR) RSV RNA Qual (PCR) SARS-CoV-2 RNA (RT-PCR) Imaging Radiologist's Impressions: Impressions Chest X-Ray 11/18/24 13:11 IMPRESSION: Chronic interstitial lung disease. No acute airspace disease. Electronically signed by: Dinesh Mcgregor MD 11/18/2024 01:44 PM [facility] Assessment and Plan (1) Sepsis: Status: Acute (2) COPD exacerbation: Status: Acute Plan This is a 64-year-old female with pertinent history of asthma-COPD overlap syndrome not on home oxygen, former tobacco use disorder, fibromyalgia, history of sleeve gastrectomy, mood disorder, hypertension, mixed hyperlipidemia, gastroesophageal reflux disease who presents to the emergency department for evaluation of dyspnea. #. Sepsis due to community-acquired pneumonia leading to COPD exacerbation: Will admit patient with empiric IV Levaquin. Resuscitated with IV crystalloids. Lactic acid and blood culture obtained. Scheduled and p.r.n. Sh[place]fta. Initiating systemic steroids. Continue home inhaler #. Hypokalemia: Repleted #. Mood disorder: Continue home mood stabilizers #. Mixed hyperlipidemia: On Zetia #. Gastroesophageal reflux disease: On PPI #. Hypertension: Continue home antihypertensives Med rec pending DVT prophylaxis: Lovenox DNR/DNI. Discussed with patient and daughter at bedside Admit as inpatient and will require two night minimum hospital stay for IV antibiotics, systemic steroids (as above), which is not possible in a lesser acute setting. Quality Stroke Does the patient have a stroke diagnosis?: No VTE Prior VTE?: No VTE Risk Level:: Medical - moderate - high VTE Device Contraindication: Treatment Not Indicated VTE Drug Contraindication: N/A - Med Ordered
--- NOTE | 2024-11-18 20:49 | PHA.MEDREC ---
Addendum entered by Shree Lindquist 11/18/24 21:12: reviewed Original Note: Pharmacy Consult ? Medication Reconciliation Pharmacy has completed the medication reconciliation. Spoke with patient and she confirmed her medications. She states she is no longer taking the Estradiol Cream. Also when I asked about the Omeprazole 20mg cap she did not remember taking that medication even when I told her the name brand name Prilosec and what it was used for, I took it off the med rec since patient did not know about it; in claims the patient got that last filled 10/31 for 30 days from [facility]. She confirmed the Oxycodone-Acetaminophen 5-325mg tab and confirmed she is taking 1 tab every 12 hours as needed. She confirmed she is now taking the Venlafaxine 225mg tab once daily and her dose just increased from 150mg to 225mg in the last week. She confirmed she took her morning dose of medications today and everything else yesterday.
[2024-11-18] MEDS: levoFLOXacin/D5W 750 MG/150 ML PIGGYBACK 100 MG IV (21:22)
[2024-11-18] MEDS: Enoxaparin Sodium 40 MG/0.4 ML SYRINGE SUBCUT (21:28)
[2024-11-18] MEDS: Zolpidem Tartrate 5 MG TABLET 10 MG PO (23:15)
[2024-11-18] MEDS: clonazePAM 0.5 MG TABLET PO (23:16)
[2024-11-18] MEDS: Amitriptyline HCl 25 MG TABLET PO (23:16)
[2024-11-18] MEDS: Topiramate 25 MG TABLET 50 MG PO (23:17)
[2024-11-18] MEDS: Pregabalin 150 MG CAPSULE PO (23:17)
[2024-11-18] MEDS: Theophylline Anhydrous ER 400 MG TAB.ER.24H PO (23:17)
--- NOTE | 2024-11-18 23:26 | PC.NURSE ---
Care assumed pt at this time.
[2024-11-19] VITALS (8 sets, daily range): BP systolic 122–133; BP diastolic 55–72; PULSE 91–112; RESP 16–110; TEMP 36.6–37.3; O2SAT 95–100
[2024-11-19] MEDS: 0.9 % Sodium Chloride Flush 3 ML SYRINGE IVFLUSH ×3 (00:40→19:54)
[2024-11-19 05:12] LABS: MANUAL DIFF FLAG NO
[2024-11-19 05:16] LABS: Basophils Percent Auto 0.2 % (0-2); Hematocrit 32.7 % (37.0-47.0); Hemoglobin 11.1 g/dl (12.0-16.0); Imm Gran Abs Auto 0.12 X10*3/uL (0.00-0.03); Imm Gran Pct Auto 0.9 % (0.0-0.4); Lymphocytes Absolute Auto 1.3 X10*3/uL (1.2-4.9); Lymphocytes Percent Auto 9.5 % (20-40); Mean Corpuscular HGB Conc 33.9 g/dl (31.0-35.0); Mean Corpuscular Hemoglobin 30.1 pg (27.0-33.0); Mean Corpuscular Volume 88.6 fL (80.0-98.0); Mean Platelet Volume 11.1 fL (9.4-12.3); Monocytes Absolute Auto 0.5 X10*3/uL (0.1-1.2); Monocytes Percent Auto 3.8 % (2-11); Neutrophils Absolute Auto 11.4 x10*3/uL (2.0-8.3); Neutrophils Percent Auto 85.6 % (45-73); Platelet Count 208 X10*3/uL (160-400); Red Blood Count 3.69 X10*6/uL (4.20-5.50); Red Cell Distribution Width 14.1 % (11.0-16.0); White Blood Count 13.3 X10*3/uL (4.8-10.8)
[2024-11-19 05:31] LABS: Anion Gap 13 (12-20); Blood Urea Nitrogen 9 mg/dL (9-16); Calcium 8.7 mg/dL (8.4-10.2); Carbon Dioxide 17 mmol/L (22-29); Chloride 114 mmol/L (96-108); Creatinine Clr Calc Pharmacy 75.7; Estimated Glomerular Filt Rate > 60; Glucose Random 133 mg/dL (60-115); Potassium 3.7 mmol/L (3.3-5.1); Sodium 140 mmol/L (135-145)
[2024-11-19 06:47] LABS: Appearance Urine Clear; Color Urine Yellow; Glucose Urine UA Negative (Negative); Leukocyte Esterase Urine Negative (Negative); Nitrite Urine Negative (Negative); PH 6.5 (5.0-9.0); Urine Blood Negative (Negative); Urine Ketones 15 mg/dL (Negative); Urine Protein Negative (Neg-Trace)
[2024-11-19] MEDS: Venlafaxine HCl ER 75 MG CAP.ER.24H 225 MG PO (09:23)
[2024-11-19] MEDS: Pregabalin 150 MG CAPSULE PO ×2 (09:23→21:27)
[2024-11-19] MEDS: Topiramate 25 MG TABLET 50 MG PO ×2 (09:23→19:48)
[2024-11-19] MEDS: methylPREDNISolone Sod Succ 40 MG/ML VIAL IVPUSH ×2 (09:24→19:54)
[2024-11-19] MEDS: amLODIPine Besylate 5 MG TABLET PO (09:24)
[2024-11-19] MEDS: Ezetimibe 10 MG TABLET PO (09:47)
--- NOTE | 2024-11-19 09:57 | MHC.CM.PN ---
IMM 11/19/24, Pt lives alone, she has 46 hrs [employer] services. PCP confirmed: Boo Name. Pt. was in ED 11/08/24, was DC's to [facility]. For DME, she has a cane and walker. She said her dtr is her HCP, copy requested. will need assistance with transportation home at DC. DCP: home, self care. CM to follow for DC needs.
[2024-11-19] MEDS: Albuterol/Iprat 2.5/0.5MG 3 ML AMPUL.NEB INHALE ×4 (11:09→20:12)
--- NOTE | 2024-11-19 12:04 | HO.PM.IMPN ---
Subjective Subjective Date of Service: 11/19/24 Interval History: f/u on copd exacerbation, pna feels better but doesn't feel ready for home Physical Exam Vital Signs: Vital Signs: Last Vital Signs Temp 99.2 F 11/19/24 11:25 Pulse 104 H 11/19/24 11:25 Resp 18 11/19/24 11:25 BP 129/67 11/19/24 11:25 Pulse Ox 98 11/19/24 11:25 O2 Del Method Room Air 11/19/24 11:25 BMI result Body Mass Index 29.3 General: AO X 3, no acute distress Resp: rhonchi, some wheezes CVS: S1,S2,RRR GI: +BS, NT, no distention Skin: No rash Neuro: motor grossly intact Psych: appropriate affect Objective Data Active Medications Acetaminophen (Acetaminophen 325 Mg Tablet) 650 mg PO Q6H PRN PRN Reason: Pain, Mild 1-3,fever,headache Albuterol/Ipratropium (Albuterol/Iprat 2.5/0.5mg 3 Ml Ampul.Neb) 3 ml INHALE Q4H PRN PRN Reason: Shortness of Breath/Wheezing Albuterol/Ipratropium (Albuterol/Iprat 2.5/0.5mg 3 Ml Ampul.Neb) 3 ml INHALE RQ4H WHILE AWAKE [facility] Last Admin: 11/19/24 11:09 Dose: 3 ml Documented By: ROGELIO Amitriptyline HCl (Amitriptyline Hcl 25 Mg Tablet) 25 mg PO BEDTIME [facility] Last Admin: 11/18/24 23:16 Dose: 25 mg Documented By: BERE Amlodipine Besylate (Amlodipine Besylate 5 Mg Tablet) 5 mg PO DAILY [facility]; Protocol Last Admin: 11/19/24 09:24 Dose: 5 mg Documented By: LANE Benzonatate (Benzonatate 100 Mg Capsule) 100 mg PO TID PRN PRN Reason: Cough Calcium Carbonate (Calcium Carbonate 750 Mg Tab.Chew) 750 mg PO Q4H PRN PRN Reason: Heartburn Clonazepam (Clonazepam 0.5 Mg Tablet) 0.5 mg PO BEDTIME [facility] Last Admin: 11/18/24 23:16 Dose: 0.5 mg Documented By: BERE Ezetimibe (Ezetimibe 10 Mg Tablet) 10 mg PO DAILY [facility] Last Admin: 11/19/24 09:47 Dose: 10 mg Documented By: LANE Enoxaparin Sodium (Enoxaparin Sodium 40 Mg/0.4 Ml Syringe) 40 mg SUBCUT Q24H [facility] Last Admin: 11/18/24 21:28 Dose: 40 mg Documented By: BERE Fluticasone/Umeclidinium/Vilanterol (Fluticasone/Umeclidinium/Vilanterol 200/62.5/25 Blst.W.Dev) 1 puff INHALE DAILY [facility] Last Admin: 11/19/24 07:15 Dose: Not Given Documented By: ROGELIO Non-Admin Reason: Patient Asleep Hydroxyzine HCl (Hydroxyzine Hcl 25 Mg Tablet) 25 mg PO Q12H PRN PRN Reason: Itching Levofloxacin (Levaquin) 750 mg in 150 mls @ 100 mls/hr IV Q24H [facility] Last Infusion: 11/18/24 23:26 Dose: Infused Documented By: SCOTT Lidocaine (Lidocaine 4 % Patch Adh..Patch) 1 patch TRANSDERMA DAILY PRN PRN Reason: Pain Magnesium Hydroxide (Milk Of Magnesia 30 Ml Oral.Susp) 30 ml PO DAILY PRN PRN Reason: Constipation Melatonin (Melatonin 3 Mg Tablet) 6 mg PO BEDTIME PRN PRN Reason: Insomnia Methylprednisolone Sodium Succinate (Methylprednisolone Sod Succ 40 Mg/Ml Vial) 40 mg IVPUSH Q12H [facility] Last Admin: 11/19/24 09:24 Dose: 40 mg Documented By: LANE Ondansetron HCl (Ondansetron Hcl 4 Mg/2 Ml Vial) 4 mg IVPUSH Q8H PRN PRN Reason: Nausea and Vomiting Oxycodone HCl (Oxycodone Hcl Immed Release 5 Mg Tablet) 5 mg PO Q12H PRN PRN Reason: Pain, Severe (Pain Scale 7-10) Pregabalin (Pregabalin 150 Mg Capsule) 150 mg PO BID [facility] Last Admin: 11/19/24 09:23 Dose: 150 mg Documented By: LANE Sodium Chloride (0.9 % Sodium Chloride Flush 3 Ml Syringe) 3 ml IVFLUSH QSHIFT [facility] Last Admin: 11/19/24 07:14 Dose: Not Given Documented By: LANE Non-Admin Reason: Patient Asleep Theophylline (Theophylline Anhydrous Er 400 Mg Tab.Er.24h) 400 mg PO BEDTIME [facility] Last Admin: 11/18/24 23:17 Dose: 400 mg Documented By: BERE Topiramate (Topiramate 25 Mg Tablet) 50 mg PO BID [facility] Last Admin: 11/19/24 09:23 Dose: 50 mg Documented By: LANE Venlafaxine HCl (Venlafaxine Hcl Er 75 Mg Cap.Er.24h) 225 mg PO DAILY [facility] Last Admin: 11/19/24 09:23 Dose: 225 mg Documented By: LANE Zolpidem Tartrate (Zolpidem Tartrate 5 Mg Tablet) 10 mg PO BEDTIME [facility] Last Admin: 11/18/24 23:15 Dose: 10 mg Documented By: BERE Labs 11/19/24 03:50 11/19/24 03:50 Labs: Laboratory Results - last 24 hr 11/18/24 11/18/24 11/18/24 13:28 13:29 15:48 MCV 87.7 MCH 30.6 MCHC 34.9 RDW 13.9 Plt Count 211 D MPV 10.4 Immature Gran % (Auto) 0.7 H Neut % (Auto) 85.0 H Lymph % (Auto) 9.3 L Dare % (Auto) 4.6 Eos % (Auto) 0.1 Baso % (Auto) 0.3 Lymph # (Auto) 1.1 L Dare # (Auto) 0.6 Eos # (Auto) 0.0 Baso # (Auto) 0.0 Abs Immat Gran (auto) 0.08 H Absolute Neuts (auto) 10.3 H Absolute Nucleated RBC 0.000 Nucleated RBC % (auto) 0.0 PT 14.0 H INR 1.2 H APTT 34.1 Anion Gap 10 L Estim Creat Clear Calc 62.5 Estimated GFR > 60 Random Glucose 144 H Lactic Acid Calcium 9.2 D Total Bilirubin 0.5 AST 33 H ALT 44 H Alkaline Phosphatase 125 H Troponin I High Sens 9.9 11.4 B-Natriuretic Peptide 43 Total Protein 7.5 Albumin 4.3 Lipase 23 Urine Color Urine Appearance Urine pH Ur Specific Noble Urine Protein Urine Glucose (UA) Urine Ketones Urine Blood Urine Nitrite Ur Leukocyte Esterase Influenza Type A (PCR) NEGATIVE Influenza Type B (PCR) NEGATIVE RSV RNA Qual (PCR) NEGATIVE SARS-CoV-2 RNA (RT-PCR) NEGATIVE 11/18/24 11/19/24 11/19/24 16:29 03:50 06:31 MCV 88.6 MCH 30.1 MCHC 33.9 RDW 14.1 Plt Count 208 MPV 11.1 Immature Gran % (Auto) 0.9 H Neut % (Auto) 85.6 H Lymph % (Auto) 9.5 L Dare % (Auto) 3.8 Eos % (Auto) 0.0 Baso % (Auto) 0.2 Lymph # (Auto) 1.3 Dare # (Auto) 0.5 Eos # (Auto) 0.0 Baso # (Auto) 0.0 Abs Immat Gran (auto) 0.12 H Absolute Neuts (auto) 11.4 H Absolute Nucleated RBC 0.000 Nucleated RBC % (auto) 0.0 PT INR APTT Anion Gap 13 Estim Creat Clear Calc 75.7 Estimated GFR > 60 Random Glucose 133 H Lactic Acid 1.5 Calcium 8.7 Total Bilirubin AST ALT Alkaline Phosphatase Troponin I High Sens B-Natriuretic Peptide Total Protein Albumin Lipase Urine Color Yellow Urine Appearance Clear Urine pH 6.5 Ur Specific Noble 1.010 Urine Protein Negative Urine Glucose (UA) Negative Urine Ketones 15 Urine Blood Negative Urine Nitrite Negative Ur Leukocyte Esterase Negative Influenza Type A (PCR) Influenza Type B (PCR) RSV RNA Qual (PCR) SARS-CoV-2 RNA (RT-PCR) Assessment and Plan (1) Sepsis: Status: Acute (2) Community acquired pneumonia: Status: Acute Plan 64-year-old female with pertinent history of ILD, asthma-COPD overlap syndrome not on home oxygen, former tobacco use disorder, fibromyalgia, history of sleeve gastrectomy, mood disorder, hypertension, mixed hyperlipidemia, gastroesophageal reflux disease who presents to the emergency department for evaluation of dyspnea. Sepsis due to community-acquired pneumonia leading to COPD exacerbation -bronchodilators for copd -iv steroid for copd, ILD -empiric Levaquin for possible PNA Hypokalemia: Repleted and resolved Mood disorder: Continue home mood stabilizers Mixed hyperlipidemia: On Zetia Gastroesophageal reflux disease: On PPI Hypertension: Continue home antihypertensives DVT prophylaxis: Lovenox DNR/DNI. confirmed with patient Quality Stroke Does the patient have a stroke diagnosis?: No VTE Prior VTE?: No VTE Risk Level:: Medical - moderate - high VTE Device Contraindication: Treatment Not Indicated VTE Drug Contraindication: N/A - Med Ordered
[2024-11-19] MEDS: Acetaminophen 325 MG TABLET 650 MG PO ×2 (12:24→19:48)
[2024-11-19 13:34] LABS: Glucose, Whole Blood 172 mg/dL (60-115)
[2024-11-19 15:39] LABS: Anion Gap 15 (12-20); Blood Urea Nitrogen 10 mg/dL (9-16); Carbon Dioxide 16 mmol/L (22-29); Chloride 111 mmol/L (96-108); Creatinine Clr Calc Pharmacy 60.8; Estimated Glomerular Filt Rate > 60; Glucose Random 238 mg/dL (60-115); Potassium 3.3 mmol/L (3.3-5.1); Sodium 139 mmol/L (135-145)
[2024-11-19 16:33] LABS: Glucose, Whole Blood 233 mg/dL (60-115)
[2024-11-19] MEDS: Calcium Carbonate 750 MG TAB.CHEW PO (16:51)
[2024-11-19] MEDS: Insulin Lispro 100 UNIT/ML 3 ML VIAL SUBCUT (16:52)
[2024-11-19] MEDS: clonazePAM 0.5 MG TABLET PO (19:48)
[2024-11-19] MEDS: Theophylline Anhydrous ER 400 MG TAB.ER.24H PO (19:48)
[2024-11-19] MEDS: Enoxaparin Sodium 40 MG/0.4 ML SYRINGE SUBCUT (19:50)
[2024-11-19 19:56] LABS: Glucose, Whole Blood 108 mg/dL (60-115)
[2024-11-19] MEDS: levoFLOXacin/D5W 750 MG/150 ML PIGGYBACK 100 MG IV (19:56)
[2024-11-19] MEDS: Benzonatate 100 MG CAPSULE PO (20:02)
[2024-11-19] MEDS: SUMAtriptan succinate 100 MG TABLET PO (21:24)
[2024-11-19] MEDS: Amitriptyline HCl 25 MG TABLET PO (21:27)
[2024-11-19] MEDS: Zolpidem Tartrate 5 MG TABLET 10 MG PO (21:27)
[2024-11-19] MEDS: Magnesium Hydrox/Alum Hydrox 30 ML ORAL.SUSP PO (21:34)
[2024-11-19] MEDS: Lactated Ringers 1,000 ML 125 ML IVCONT (21:35)
[2024-11-19] MEDS: guaiFEN/Codeine SF 200/20/10ML 10 ML LIQUID 5 ML PO (21:37)
[2024-11-20] MEDS: Lactated Ringers 1,000 ML 125 ML IVCONT (05:45)
[2024-11-20 06:54] LABS: Hematocrit 33.1 % (37.0-47.0); Hemoglobin 11.5 g/dl (12.0-16.0); Mean Corpuscular HGB Conc 34.7 g/dl (31.0-35.0); Mean Corpuscular Hemoglobin 30.5 pg (27.0-33.0); Mean Corpuscular Volume 87.8 fL (80.0-98.0); Mean Platelet Volume 11.2 fL (9.4-12.3); Platelet Count 200 X10*3/uL (160-400); Red Blood Count 3.77 X10*6/uL (4.20-5.50); Red Cell Distribution Width 14.5 % (11.0-16.0); White Blood Count 12.6 X10*3/uL (4.8-10.8)
[2024-11-20 07:04] LABS: Anion Gap 15 (12-20); Blood Urea Nitrogen 8 mg/dL (9-16); Carbon Dioxide 20 mmol/L (22-29); Chloride 111 mmol/L (96-108); Estimated Glomerular Filt Rate > 60; Glucose Random 169 mg/dL (60-115); Potassium 3.9 mmol/L (3.3-5.1); Sodium 142 mmol/L (135-145)
[2024-11-20 07:19] LABS: Glucose, Whole Blood 112 mg/dL (60-115)
[2024-11-20 08:05] VITALS: BP 121/54; PULSE 92; RESP 12; TEMP 36.4; O2SAT 96
[2024-11-20] MEDS: Venlafaxine HCl ER 75 MG CAP.ER.24H 225 MG PO (08:09)
[2024-11-20] MEDS: Topiramate 25 MG TABLET 50 MG PO ×2 (08:09→21:12)
[2024-11-20] MEDS: amLODIPine Besylate 5 MG TABLET PO (08:09)
[2024-11-20] MEDS: methylPREDNISolone Sod Succ 40 MG/ML VIAL IVPUSH ×2 (08:10→20:00)
[2024-11-20] MEDS: Pregabalin 150 MG CAPSULE PO ×2 (08:10→21:11)
[2024-11-20] MEDS: Ezetimibe 10 MG TABLET PO (08:10)
[2024-11-20] MEDS: guaiFEN/Codeine SF 200/20/10ML 10 ML LIQUID 5 ML PO (08:14)
[2024-11-20] MEDS: Acetaminophen 325 MG TABLET 650 MG PO ×3 (08:14→22:14)
[2024-11-20] MEDS: oxyCODONE HCl Immed Release 5 MG TABLET PO ×2 (08:14→19:55)
--- NOTE | 2024-11-20 11:35 | PM.DS ---
DS: Providers Provider Date of Service: 11/21/24 Date of admission: 11/18/24 19:46 Date of discharge: 11/21/24 Primary care physician: Boo Hastings MD DS: Diagnosis Discharge Diagnosis (1) Sepsis: Status: Acute (2) Community acquired pneumonia: Status: Acute DS: Summary Hospital Course Hospital Course: admission hpi Chief Complaint: Dyspnea This is a 64-year-old female with pertinent history of asthma-COPD overlap syndrome not on home oxygen, former tobacco use disorder, fibromyalgia, history of sleeve gastrectomy, mood disorder, hypertension, mixed hyperlipidemia, gastroesophageal reflux disease who presents to the emergency department for evaluation of dyspnea. Patient states she has been having dyspnea and cough for the last 2 months. Patient visited urgent care 2 times in the last 2 months for her symptoms. It has been progressive and got worse in the last few days. The dyspnea is worse with exertion and the cough is productive with greenish sputum. Also has associated wheezing. Was febrile prior to presentation. Admits pleuritic chest discomfort, no palpitations. Denies dysuria, no changes in bowel habits. In the emergency department, patient was found to be septic and imaging concerning for pneumonia. Also found to be wheezing despite multiple DuoNeb treatments. hospital course: The patient presented with shortness of breath and was admitted for a COPD exacerbation and possible pneumonia. A chest X-ray showed no acute findings; however, a CT of the chest revealed a possible infiltrate. She was treated with IV levofloxacin, breathing treatments, and steroids. She is now overall doing better with no respiratory distress, fever, or hypoxia. She will be transitioned to oral levofloxacin for a total of 5 days and prednisone for 5 days. Hypokalemia: Repleted and resolved Mood disorder: Continue home mood stabilizers Mixed hyperlipidemia: On Zetia Gastroesophageal reflux disease: On PPI Hypertension: Continue home antihypertensives Physical Exam Vital Signs: Vital Signs: Selected Entries 11/21/24 07:24 11/21/24 08:26 Temperature 98.0 F Pulse Rate 72 Respiratory Rate 17 Blood Pressure 143/81 H Pulse Oximetry 97 Oxygen Delivery Me thod Room Air General: AO X 3, no acute distress Resp: CTA bilateral CVS: S1,S2,RRR GI: +BS, NT, no distention Skin: No rash Neuro: motor grossly intact Psych: appropriate affect DS: Data Data Completed and Pending Labs on day of discharge: Laboratory Results - last 24 hr 11/19/24 11/19/24 11/19/24 12:23 15:13 16:29 WBC RBC Hgb Hct MCV MCH MCHC RDW Plt Count MPV Absolute Nucleated RBC Nucleated RBC % (auto) Sodium 139 Potassium 3.3 Chloride 111 H Carbon Dioxide 16 L Anion Gap 15 BUN 10 Creatinine 0.76 Estim Creat Clear Calc 60.8 Estimated GFR > 60 POC Glucose 172 H 233 H Random Glucose 238 H Calcium 9.0 11/19/24 11/20/24 11/20/24 19:33 05:21 07:12 WBC 12.6 H RBC 3.77 L Hgb 11.5 L Hct 33.1 L MCV 87.8 MCH 30.5 MCHC 34.7 RDW 14.5 Plt Count 200 MPV 11.2 Absolute Nucleated RBC 0.000 Nucleated RBC % (auto) 0.0 Sodium 142 Potassium 3.9 Chloride 111 H Carbon Dioxide 20 L Anion Gap 15 BUN 8 L Creatinine 0.66 Estim Creat Clear Calc 70.0 Estimated GFR > 60 POC Glucose 108 112 Random Glucose 169 H Calcium 9.0 Preliminary micro results at discharge 11/18/24 16:35 Blood Culture - Preliminary Blood - Venous No growth after 24 hours. 11/18/24 16:29 Blood Culture - Preliminary Blood - Venous No growth after 24 hours. Discharge Plan Discharge Anticipated Discharge Date/Time: 11/21/24 09:20 Patient Disposition: Home, Self-Care Discharge Diagnosis: COPD, Pneumonia Referrals: Name,MD Boo [Primary Care Provider] - 1 Week Discharge Medications: New levofloxacin 750 mg tablet 750 mg PO DAILY 2 Days Qty: 2 0RF Rx Instructions: next dose tonight prednisone 20 mg tablet 40 mg PO DAILY Qty: 4 0RF Continued albuterol sulfate [Ventolin HFA] 90 mcg/actuation HFA aerosol inhaler 2 puff inhalation Q4-6H PRN (Reason: for wheezing) Qty: 18 5RF Trelegy Ellipta 200-62.5-25 mcg blister with device 1 inh inhalation DAILY 30 Days Qty: 1 6RF venlafaxine 225 mg tablet extended release 24hr 225 mg PO DAILY albuterol sulfate 2.5 mg /3 mL (0.083 %) solution for nebulization 2.5 mg inhalation QID PRN (Reason: Shortness Of Breath Or Wheezing) ibuprofen [IBU] 800 mg tablet 800 mg PO Q8H PRN (Reason: pain) sumatriptan succinate 100 mg tablet 100 mg PO NEEDED oxycodone-acetaminophen 5-325 mg tablet 1 tab PO Q12H PRN (Reason: severe pain) lidocaine 5 % adhesive patch,medicated 1 patch transdermal DAILY PRN (Reason: Pain) Rx Instructions: x12 hours hydroxyzine HCl 25 mg tablet 25 mg PO Q12H PRN (Reason: itch) zolpidem 5 mg tablet 5 mg PO BEDTIME PRN (Reason: Insomnia) zolpidem 10 mg tablet 10 mg PO BEDTIME theophylline 400 mg tablet extended release 24 hr 400 mg PO BEDTIME amlodipine 5 mg tablet 5 mg PO DAILY lidocaine-prilocaine 2.5-2.5 % cream 1 appl topical DAILY PRN (Reason: Pain) amitriptyline 25 mg tablet 25 mg PO BEDTIME ezetimibe 10 mg tablet 10 mg PO DAILY topiramate 50 mg tablet 50 mg PO BID pregabalin 150 mg capsule 150 mg PO BID clonazepam 0.5 mg tablet 0.5 mg PO BEDTIME Rx Instructions: administer 30 minutes before bedtime Discharge Orders: Discharge Order (Routine); Ordered 11/21/24 Ordered By: Fredo King Diet: Advance to usual diet Activity on Discharge: As tolerated Stand Alone Forms: Patient Portal Discharge page Print Language: Burkinan Care Plan Goals: recovery from pneumonia Health Concerns: pneumonia Plan of Treatment: take levaquin 750 mg daily for 2 more day, next dose tonight Take prednisone as directed for copd exacerbation continue your usual inhalers follow up with your Doctor in a week, call for appointment Assessment: see above
[2024-11-20 11:45] LABS: Glucose, Whole Blood 118 mg/dL (60-115)
[2024-11-20] MEDS: Calcium Carbonate 750 MG TAB.CHEW PO (11:49)
--- NOTE | 2024-11-20 12:22 | PC.NURSE ---
informed MD of pt and pt's daughter request
[2024-11-20] MEDS: Albuterol/Iprat 2.5/0.5MG 3 ML AMPUL.NEB INHALE ×2 (15:43→19:39)
[2024-11-20 15:44] VITALS: PULSE 92; RESP 12; O2SAT 96
[2024-11-20 15:49] VITALS: BP 138/64; PULSE 90; RESP 18; TEMP 36.4; O2SAT 97
[2024-11-20 16:33] LABS: Glucose, Whole Blood 136 mg/dL (60-115)
--- NOTE | 2024-11-20 17:17 | HO.PM.IMPN ---
Subjective Subjective Date of Service: 11/20/24 Interval History: f/u on copd exacerbation, pna feels better but doesn't feel ready for home Physical Exam Vital Signs: Vital Signs: Last Vital Signs Temp 97.6 F 11/20/24 15:49 Pulse 90 11/20/24 15:49 Resp 18 11/20/24 15:49 BP 138/64 11/20/24 15:49 Pulse Ox 97 11/20/24 15:49 O2 Del Method Room Air 11/20/24 15:49 BMI result Body Mass Index 29.3 General: AO X 3, no acute distress Resp: rhonchi CVS: S1,S2,RRR GI: +BS, NT, no distention Skin: No rash Neuro: motor grossly intact Psych: appropriate affect Objective Data Active Medications Acetaminophen (Acetaminophen 325 Mg Tablet) 650 mg PO Q6H PRN PRN Reason: Pain, Mild 1-3,fever,headache Last Admin: 11/20/24 16:14 Dose: 650 mg Documented By: REBEKA Albuterol/Ipratropium (Albuterol/Iprat 2.5/0.5mg 3 Ml Ampul.Neb) 3 ml INHALE Q4H PRN PRN Reason: Shortness of Breath/Wheezing Last Admin: 11/19/24 13:11 Dose: 3 ml Documented By: ROGELIO Albuterol/Ipratropium (Albuterol/Iprat 2.5/0.5mg 3 Ml Ampul.Neb) 3 ml INHALE RQ4H WHILE AWAKE [facility] Last Admin: 11/20/24 15:43 Dose: 3 ml Documented By: TIFFANY Amitriptyline HCl (Amitriptyline Hcl 25 Mg Tablet) 25 mg PO BEDTIME [facility] Last Admin: 11/19/24 21:27 Dose: 25 mg Documented By: MILI Amlodipine Besylate (Amlodipine Besylate 5 Mg Tablet) 5 mg PO DAILY [facility]; Protocol Last Admin: 11/20/24 08:09 Dose: 5 mg Documented By: MAYITOFADave Benzonatate (Benzonatate 100 Mg Capsule) 100 mg PO TID PRN PRN Reason: Cough Last Admin: 11/19/24 20:02 Dose: 100 mg Documented By: MILI Calcium Carbonate (Calcium Carbonate 750 Mg Tab.Chew) 750 mg PO Q4H PRN PRN Reason: Heartburn Last Admin: 11/20/24 11:49 Dose: 750 mg Documented By: GABBY Clonazepam (Clonazepam 0.5 Mg Tablet) 0.5 mg PO BEDTIME [facility] Last Admin: 11/19/24 19:48 Dose: 0.5 mg Documented By: MILI Ezetimibe (Ezetimibe 10 Mg Tablet) 10 mg PO DAILY [facility] Last Admin: 11/20/24 08:10 Dose: 10 mg Documented By: GABBY Enoxaparin Sodium (Enoxaparin Sodium 40 Mg/0.4 Ml Syringe) 40 mg SUBCUT Q24H [facility] Last Admin: 11/19/24 19:50 Dose: 40 mg Documented By: MILI Fluticasone/Umeclidinium/Vilanterol (Fluticasone/Umeclidinium/Vilanterol 200/62.5/25 Blst.W.Dev) 1 puff INHALE DAILY [facility] Last Admin: 11/20/24 08:21 Dose: Not Given Documented By: ROGELIO Non-Admin Reason: Patient Refused Glucose (Glucose Gel 15 Gm Gel..Gram.) 15 gm PO Q15M PRN; Protocol PRN Reason: per Hypoglycemia Standing Ord. Guaifenesin/Codeine Phosphate (Guaifen/Codeine Sf 200/20/10ml 10 Ml Liquid) 5 ml PO Q6H PRN PRN Reason: Cough Last Admin: 11/20/24 08:14 Dose: 5 ml Documented By: GABBY Hydroxyzine HCl (Hydroxyzine Hcl 25 Mg Tablet) 25 mg PO Q12H PRN PRN Reason: Itching Levofloxacin (Levaquin) 750 mg in 150 mls @ 100 mls/hr IV Q24H [facility] Last Infusion: 11/19/24 21:36 Dose: Infused Documented By: MILI Dextrose (D10) 250 mls @ 750 mls/hr IV Q15M PRN; Protocol PRN Reason: per Hypoglycemia Standing Ord. Lactated Ringer's (Lr) 1,000 mls @ 125 mls/hr IVCONT .Q8H [facility] Last Admin: 11/20/24 13:37 Dose: Not Given Documented By: GABBY Non-Admin Reason: pt refuse Insulin Human Lispro (Insulin Lispro 100 Unit/Ml 3 Ml Vial) 0 unit SUBCUT QIDACHS [facility]; Protocol Last Admin: 11/20/24 16:39 Dose: Not Given Documented By: REBEKA Non-Admin Reason: No Insulin Coverage Lidocaine (Lidocaine 4 % Patch Adh..Patch) 1 patch TRANSDERMA DAILY PRN PRN Reason: Pain Magnesium Hydroxide (Milk Of Magnesia 30 Ml Oral.Susp) 30 ml PO DAILY PRN PRN Reason: Constipation Melatonin (Melatonin 3 Mg Tablet) 6 mg PO BEDTIME PRN PRN Reason: Insomnia Methylprednisolone Sodium Succinate (Methylprednisolone Sod Succ 40 Mg/Ml Vial) 40 mg IVPUSH Q12H [facility] Last Admin: 11/20/24 08:10 Dose: 40 mg Documented By: GABBY Ondansetron HCl (Ondansetron Hcl 4 Mg/2 Ml Vial) 4 mg IVPUSH Q8H PRN PRN Reason: Nausea and Vomiting Oxycodone HCl (Oxycodone Hcl Immed Release 5 Mg Tablet) 5 mg PO Q12H PRN PRN Reason: Pain, Severe (Pain Scale 7-10) Last Admin: 11/20/24 08:14 Dose: 5 mg Documented By: GABBY Pregabalin (Pregabalin 150 Mg Capsule) 150 mg PO BID [facility] Last Admin: 11/20/24 08:10 Dose: 150 mg Documented By: GABBY Sodium Chloride (0.9 % Sodium Chloride Flush 3 Ml Syringe) 3 ml IVFLUSH QSHIFT [facility] Last Admin: 11/20/24 12:22 Dose: Not Given Documented By: GABBY Non-Admin Reason: Previously Administered Sumatriptan Succinate (Sumatriptan Succinate 100 Mg Tablet) 100 mg PO DAILY PRN PRN Reason: Headache Last Admin: 11/19/24 21:24 Dose: 100 mg Documented By: MILI Theophylline (Theophylline Anhydrous Er 400 Mg Tab.Er.24h) 400 mg PO BEDTIME [facility] Last Admin: 11/19/24 19:48 Dose: 400 mg Documented By: MILI Topiramate (Topiramate 25 Mg Tablet) 50 mg PO BID [facility] Last Admin: 11/20/24 08:09 Dose: 50 mg Documented By: HO.SOFFAA Venlafaxine HCl (Venlafaxine Hcl Er 75 Mg Cap.Er.24h) 225 mg PO DAILY [facility] Last Admin: 11/20/24 08:09 Dose: 225 mg Documented By: SOFFADave Zolpidem Tartrate (Zolpidem Tartrate 5 Mg Tablet) 10 mg PO BEDTIME [facility] Last Admin: 11/19/24 21:27 Dose: 10 mg Documented By: SOFIAQC Labs 11/20/24 05:21 11/20/24 05:21 Labs: Laboratory Results - last 24 hr 11/19/24 11/20/24 11/20/24 19:33 05:21 07:12 MCV 87.8 MCH 30.5 MCHC 34.7 RDW 14.5 Plt Count 200 MPV 11.2 Absolute Nucleated RBC 0.000 Nucleated RBC % (auto) 0.0 Anion Gap 15 Estim Creat Clear Calc 70.0 Estimated GFR > 60 POC Glucose 108 112 Random Glucose 169 H Calcium 9.0 11/20/24 11/20/24 11:39 16:29 MCV MCH MCHC RDW Plt Count MPV Absolute Nucleated RBC Nucleated RBC % (auto) Anion Gap Estim Creat Clear Calc Estimated GFR POC Glucose 118 H 136 H Random Glucose Calcium Microbiology Microbiology Results: Microbiology 11/18/24 16:35 Blood Culture - Preliminary Blood - Venous No growth after 24 hours. 11/18/24 16:29 Blood Culture - Preliminary Blood - Venous No growth after 24 hours. Assessment and Plan (1) Sepsis: Status: Acute (2) Community acquired pneumonia: Status: Acute Plan 64-year-old female with pertinent history of ILD, asthma-COPD overlap syndrome not on home oxygen, former tobacco use disorder, fibromyalgia, history of sleeve gastrectomy, mood disorder, hypertension, mixed hyperlipidemia, gastroesophageal reflux disease who presents to the emergency department for evaluation of dyspnea. Sepsis due to community-acquired pneumonia leading to COPD exacerbation -bronchodilators for copd -steroid for copd, ILD -empiric Levaquin for possible PNA Hypokalemia: Repleted and resolved Mood disorder: Continue home mood stabilizers Mixed hyperlipidemia: On Zetia Gastroesophageal reflux disease: On PPI Hypertension: Continue home antihypertensives DVT prophylaxis: Lovenox DNR/DNI. confirmed with patient home tomorrow Quality Stroke Does the patient have a stroke diagnosis?: No VTE Prior VTE?: No VTE Risk Level:: Medical - moderate - high VTE Device Contraindication: Treatment Not Indicated VTE Drug Contraindication: N/A - Med Ordered
[2024-11-20] MEDS: Enoxaparin Sodium 40 MG/0.4 ML SYRINGE SUBCUT (19:59)
[2024-11-20 20:14] LABS: Glucose, Whole Blood 120 mg/dL (60-115)
[2024-11-20] MEDS: levoFLOXacin/D5W 750 MG/150 ML PIGGYBACK 100 MG IV (21:09)
[2024-11-20] MEDS: 0.9 % Sodium Chloride Flush 3 ML SYRINGE IVFLUSH (21:09)
[2024-11-20] MEDS: Zolpidem Tartrate 5 MG TABLET 10 MG PO (21:11)
[2024-11-20] MEDS: clonazePAM 0.5 MG TABLET PO (21:11)
[2024-11-20] MEDS: Theophylline Anhydrous ER 400 MG TAB.ER.24H PO (21:12)
[2024-11-20] MEDS: Amitriptyline HCl 25 MG TABLET PO (21:12)
[2024-11-20] MEDS: SUMAtriptan succinate 100 MG TABLET PO (21:18)
[2024-11-20] MEDS: hydrOXYzine HCL 25 MG TABLET PO (21:18)
[2024-11-20 23:28] VITALS: BP 123/57; PULSE 96; RESP 18; TEMP 36.6; O2SAT 95
[2024-11-21 07:24] VITALS: BP 143/81; PULSE 100; RESP 18; TEMP 36.7; O2SAT 97
[2024-11-21] MEDS: Ezetimibe 10 MG TABLET PO (07:25)
[2024-11-21] MEDS: methylPREDNISolone Sod Succ 40 MG/ML VIAL IVPUSH (07:25)
[2024-11-21] MEDS: Venlafaxine HCl ER 75 MG CAP.ER.24H 225 MG PO (07:26)
[2024-11-21] MEDS: amLODIPine Besylate 5 MG TABLET PO (07:26)
[2024-11-21] MEDS: Topiramate 25 MG TABLET 50 MG PO (07:26)
[2024-11-21] MEDS: Pregabalin 150 MG CAPSULE PO (07:26)
[2024-11-21] MEDS: 0.9 % Sodium Chloride Flush 3 ML SYRINGE IVFLUSH (07:27)
[2024-11-21] MEDS: Lidocaine 4 % Patch ADH..PATCH 1 PATCH TRANSDERMA (07:30)
[2024-11-21] MEDS: Acetaminophen 325 MG TABLET 650 MG PO (07:31)
[2024-11-21 07:56] LABS: Glucose, Whole Blood 96 mg/dL (60-115)
[2024-11-21] MEDS: oxyCODONE HCl Immed Release 5 MG TABLET PO (08:07)
[2024-11-21 08:26] VITALS: PULSE 72; RESP 17; O2SAT 95
[2024-11-21] MEDS: Fluticasone/Umeclidinium/Vilanterol 200/62.5/25 BLST.W.DEV 1 PUFF INHALE (08:26)
[2024-11-21] MEDS: Albuterol/Iprat 2.5/0.5MG 3 ML AMPUL.NEB INHALE (08:26)
--- NOTE | 2024-11-21 10:50 | MHC.CM.PN ---
Addendum entered by Jeannie Humphries RN 11/21/24 11:16: Will transport home via [employer]. Original Note: Patient medically cleared for dc home self care via shuttle @ 1130am. RN aware. Rec'd call from [facility]. Report they were referred after patient's recent dc from [facility] and were scheduled for SOC. Will start SN / med management after dc. Patient aware.
[2024-11-21 11:10] LABS: Glucose, Whole Blood 184 mg/dL (60-115)
== END 2024-11-21 11:18 | disposition home or self-care (01) | DRG 871 ==
LOC: HO.ED 14:34 → HO.EDOVER 19:50 → HO.S3 11-19 10:23
PROVIDERS: Physician Assistant; Registered Nurse Emergency; Admitting Provider Student in an Organized Health Care Education/Training Program; Emergency Provider Emergency Medicine; PCP Internal Medicine Geriatric Medicine; Visit Provider Internal Medicine
DX: A41.9 Sepsis, unspecified organism (principal); J18.9 Pneumonia, unspecified organism; J44.0 Chronic obstructive pulmonary disease with (acute) lower respiratory infection; J44.1 Chronic obstructive pulmonary disease with (acute) exacerbation; K21.9 Gastro-esophageal reflux disease without esophagitis; M79.7 Fibromyalgia; Z66 Do not resuscitate; E78.2 Mixed hyperlipidemia; F39 Unspecified mood [affective] disorder; E87.6 Hypokalemia; Z20.822 Contact with and (suspected) exposure to COVID-19; Z98.84 Bariatric surgery status; Z87.891 Personal history of nicotine dependence; Z79.899 Other long term (current) drug therapy
CPT/HCPCS: 0241U; 36415; 71046; 71250; 74176; 80048; 80053; 81003; 82947; 83605; 83690; 83880; 84484; 85025; 85027; 85610; 85730; 87040; 93005; 94640; 99285; J0456; J0696; J1650; J1956; J2919; J3475; J7120

== ENCOUNTER → 2024-11-18 13:11 | Outpatient (BNV) | payer OTHER, SELFPAY | PROVIDERS: PCP Internal Medicine Geriatric Medicine; Visit Provider Radiology Diagnostic Radiology | DX: R06.9 Unspecified abnormalities of breathing (principal); R07.9 Chest pain, unspecified; R11.10 Vomiting, unspecified | CPT/HCPCS: 71046; 71250; 74176 ==

== ENCOUNTER → 2024-11-18 13:11 | Outpatient (BNV) | payer OTHER, SELFPAY | PROVIDERS: Admitting Provider Student in an Organized Health Care Education/Training Program; Emergency Provider Emergency Medicine; PCP Internal Medicine Geriatric Medicine; Visit Provider Internal Medicine Cardiovascular Disease | DX: R94.31 Abnormal electrocardiogram [ECG] [EKG] (principal) | CPT/HCPCS: 93010 ==

== ENCOUNTER → 2024-11-18 19:46 | Outpatient (BNV) | payer OTHER, SELFPAY | PROVIDERS: Admitting Provider Student in an Organized Health Care Education/Training Program; Emergency Provider Emergency Medicine; PCP Internal Medicine Geriatric Medicine; Visit Provider Student in an Organized Health Care Education/Training Program | DX: A41.9 Sepsis, unspecified organism (principal); J18.9 Pneumonia, unspecified organism; J44.1 Chronic obstructive pulmonary disease with (acute) exacerbation | CPT/HCPCS: 99223; 99231; 99232 ==

== ENCOUNTER 2025-02-06 09:16 | Outpatient (REF) | payer OTHER, SELFPAY ==
--- OUTSIDE RECORDS SUMMARY | 2025-02-06 09:36 | XMS_ITS | Encounter Summary ---
Author Organization [facility] Address [address] [place] [address] Care Team Providers Care Applications Analyst Name Role Phone Name, Boo FARLEY Primary Care Provider Unavailabl e Name, Boo FARLEY Primary Care Provider Unavailabl e Lissy Kumari DO Primary Care Pro vider Unavailable Community, Pcp Primary Care Provider Unavailabl e Verna Wright MD Primary Care Provider Un available Community, Pcp Primary Care Provider Unavailabl e Name, Boo FARLEY Primary Care Provider Unavailabl e Name, Boo FARLEY Primary Care Provider Unavailabl e Name, Boo FARLEY Primary Care Provider Unavailabl e Encounter Details Date Type Department Care Team Description 07/23/2012 Home Health Certification Medical Records [address] [place] [id number] Social History Tobacco Use Types Packs/Day Years Used Date Smoking Tobacco: Former Cigarettes 0.5 Q uit: 07/21/2010 Smokeless Tobacco: Never Alcohol Use Standard Drinks/Week Comments No 0 (1 standard drink = 0.6 oz pur e alcohol) Sex Assigned at Date Recorded Not on file Job Start Date Occupation Industry Not on file Not on file Not on file documented as of this encounter Plan of Treatment Not on file documented as of this encounter Visit Diagnoses Not on filedocumented in this encounter Care Teams Applications Analyst Relationship Specialty Start Date End Date Boo Hastings MD PCP - General 03/26/07 08/23/15 Boo Hastings MD PCP - General Internal Medicine 08/24/15 11/16/15 Lissy Kumari DO PCP - General Internal Medicine 11/17/15 12/19/16 Community, Pcp PCP - General Internal Medicine 12/20/16 07/01/18 Verna Wright MD PCP - General Internal Medicine 07/02/18 Community, Pcp PCP - General Internal Medicine 07/15/19 07/20/21 Name, MD Boo PCP - General Internal Medicine 04/06/19 06/02/19 Name, MD Boo PCP - General Internal Medicine 06/03/19 07/14/19 Name, MD Boo PCP - General Internal Medicine 06/03/22 documented as of this encounter
--- OUTSIDE RECORDS SUMMARY | 2025-02-06 09:36 | XMS_ITS | Encounter Summary ---
Author Organization [facility] Address [address] [place] [address] Care Team Providers Care Quality Control Engineer Name Role Phone Name, Boo FARLEY Primary [...] Details Date Type Department Care Team Description 07/27/2012 Hospital Medical Records [address] [place] [address] Kapil Epperson MD Social History Tobacco Use Types Packs/Day Years Used Date Smoking Tobacco: Former Cigarettes 0.5 0 1972 - 07/21/2010 Smokeless Tobacco: Never Alcohol Use Standard [...] on filedocumented in this encounter Care Teams Quality Control Engineer Relationship Specialty Start Date End Date Boo [...]
--- OUTSIDE RECORDS SUMMARY | 2025-02-06 09:36 | XMS_ITS | Encounter Summary ---
Author Organization [facility] Address [address] [place] [address] Care Team Providers Care Certified Nurse Aide Name Role Phone Name, Boo FARLEY Primary [...] Boo FARLEY Primary Care Provider Unavailabl e Reason for Visit * Reason Onset Date Comments Follow-up Appt Unavailable 07/24/2012 Encounter Details Date Type Department Care Team Description 07/24/2012 Telephone Adult Medicine [address] [address] NameBoo MD Follow-up Appt Unavailable Social History Tobacco Use Types Packs/Day Years Used Date Smoking Tobacco: Former Cigarettes 0.5 Q uit: 07/21/2010 Smokeless Tobacco: Never Alcohol Use Standard Drinks/Week Comments No 0 (1 standard drink = 0.6 oz pur e alcohol) Sex Assigned at Date Recorded Not on file Job Start Date Occupation Industry Not on file Not on file Not on file documented as of this encounter Miscellaneous Notes * Telephone Encounter - Hilary Palacio R.N. - 07/24/2012 2:52 PM EDT Pt booked for 10/02 at 2;[address] foreman, message left for pt to call. she will need to confirm appointment or be rescheduled with triage. * Telephone Encounter - Radha Biankakenny - 07/24/2012 1:33 PM EDT Follow up appointment not available. Please call patient to book-no open NON PUBLIC SLOTS. Appointment needed 10-02-[address] Foreman documented in this encounter Plan of Treatment Not on file documented as of this encounter Visit Diagnoses Not on filedocumented in this encounter Care Teams Certified Nurse Aide Relationship Specialty Start Date End Date Name, MD Boo PCP - General 03/26/07 08/23/15 Boo Foreman MD PCP - General Internal Medicine 08/24/15 11/16/15 Lissy Kumari DO PCP - General Internal Medicine 11/17/15 12/19/16 [facility], Pcp PCP - General Internal Medicine 12/20/16 07/01/18 Verna Wright MD PCP - General Internal Medicine 07/02/18 [facility], Pcp PCP - General Internal Medicine 07/15/19 07/20/21 Boo Foreman MD PCP - General Internal Medicine 04/06/19 06/02/19 Boo Foreman MD PCP - General Internal Medicine 06/03/19 07/14/19 Boo Foreman MD PCP - General Internal Medicine 06/03/22 documented as of this encounter
--- OUTSIDE RECORDS SUMMARY | 2025-02-06 09:36 | XMS_ITS | Clinical Summary ---
Author Organization [employer] Address [address] [facility] [address] [place] [address] Care Team Providers Care Voip Network Engineer Name Role Phone Name, Boo FARLEY Primary Care Provider [phone] Ira Orozco PharmD Unavailable [phone] Allergies Active Allergy Reactions Criticality Noted Date Comments Alendronate Hives,Swelling,Unkno wn,A bdominal Pain Medium 04/25/2008 Pain and swelling all over Aspirin Low 10/08/2013 Other reaction(s): Flushing Atorvastatin Vomiting,Muscle Pain Low 10/25/2017 Penicillins Unknown Medium 01/27/2014 Medications zolpidem (Ambien) 10 MG tablet Take 1 tablet by mouth at bed time. 019 Active albuterol 108 (90 Base) MCG/ACT inhaler INHALE 2 PUFFS BY MOUTH EVERY 4 TO 6 HOURS NEEDED FOR SHORTNESS OF BREATH OR WHEEZING 023 Active Trelegy Ellipta 200-62.5-25 MCG/ACT aerosol powder TAKE 1 PUFF BY MOUTH EVERY DAY 023 Active Diclofenac Sodium 1 % gelIndications:F ibromyalgia,Acut e pain of right shoulder APPLY 2 GRAMS TOPICALLY IF NEEDED IN THE MORNING AND AT BEDTIME (MUSCLE PAIN). 100 g 3 023 Active zolpidem (Ambien) 5 MG tablet TAKE 1 TABLET BY MOUTH AT BEDTIME NEEDED IF YOU AWAKEN IN THE NIGHT 023 Active albuterol (2.5 MG/3ML) 0.083% nebulizer solutionIndicati ons:Chronic obstructive pulmonary disease, unspecified (CMS/HCC) INHALE ONE AMPULE USING A NEBULIZER FOUR TIMES DAILY 360 mL 1 024 Active docusate sodium (Colace) 100 MG capsule Take 1 capsule (100 mg) by mouth at bedtime. 90 capsule 1 Active ezetimibe (Zetia) 10 MG tablet Take 1 tablet (10 mg) by mouth Once per day. 30 tablet 11 024 2024 Active naloxone (Narcan) 4 mg/0.1 mL nasal sprayIndications :Chronic pain syndrome Administer 1 spray (4 mg) into affected nostril(s) if needed for opioid reversal. 2 each 2 Active Multiple Vitamin (Multivitamin) tablet TAKE ONE TABLET EVERY MORNING 90 tablet 3 024 Active lidocaine (Lidoderm) 5 % patchIndications :Chronic pain syndrome APPLY 1 PATCH TO SKIN. LEAVE ON FOR 12 HOURS, THEN OFF FOR 12 HOURS DIRECTED. 30 patch 5 Active SUMAtriptan (Imitrex) 100 MG tabletIndication s:Migraine without status migrainosus, not intractable, unspecified migraine type TAKE 1 TABLET BY MOUTH AT ONSET OF MIGRAINE. MAY REPEAT ONCE AFTER 2 HOURS IF NEEDED 9 tablet 2 Active estradiol (Estrace) 0.1 MG/GM vaginal cream Insert 1 g vaginally x 14 days, then use 1 g vaginally twice weekly ongoing after that 42.5 g Active acetaminophen (Tylenol) 500 MG tablet Take 1 tablet (500 mg) by mouth every 8 (eight) hours if needed for mild pain. 90 tablet 025 Active hydrOXYzine HCl (Atarax) 25 MG tabletIndication s:Anxiety TAKE ONE TABLET EVERY TWELVE HOURS NEEDED FOR ITCHING OR FOR ANXIETY 28 tablet 025 Active lidocaine-priloc dnani (Emla) 2.5-2.5 % cream APPLY TO THE AFFECTED AREA(S) DAILY DIRECTED 30 g 1 025 Active omeprazole (PriLOSEC) [address] capsule Take 1 capsule by mouth before breakfast. Active theophylline ER (Uniphyl) 400 MG 24 hr tablet Take 1 tablet by mouth at bedtime. 024 Active montelukast (Singulair) 10 MG tabletIndication s:Moderate persistent asthma without complication TAKE ONE TABLET EVERY EVENING 90 tablet 1 025 Active bisacodyl (Dulcolax) 5 MG EC tabletIndication s:Constipation, unspecified constipation type Take 1 tablet (5 mg) by mouth if needed each day for constipation. Do not crush, chew, or split. 30 tablet 11 025 2025 Active polyethylene glycol, PEG, 3350 (MiraLax) 17 GM/SCOOP powder Take 17 g by mouth Once per day. 527 g 025 2025 Active amitriptyline (Elavil) 25 MG tablet TAKE ONE TABLET EVERY NIGHT AT BEDTIME 30 tablet 025 Active FREESTYLE LITE test stripIndications :Type 2 diabetes mellitus without complication, without long-term current use of insulin ([facility]) Use to test blood sugar once times daily 100 each 12 025 2025 Active Lancets miscIndications: Type 2 diabetes mellitus without complication, without long-term current use of insulin ([facility]) Use to test blood sugar once times daily 100 each 025 Active Alcohol Swabs 70 % padsIndications: Type 2 diabetes mellitus without complication, without long-term current use of insulin ([facility]) Use to test blood sugar once times daily 100 each 025 Active Blood Glucose Monitoring Suppl (FreeStyle Reddell Lite) w/Device kitIndications:T ype 2 diabetes mellitus without complication, without long-term current use of insulin ([facility]) Use to test blood sugar once times daily 1 kit 025 Active pregabalin (Lyrica) 150 MG capsuleIndicatio ns:Lumbar radiculopathy TAKE ONE CAPSULE TWICE DAILY IN THE MORNING AND AT BEDTIME 60 capsule 025 Active ibuprofen 800 MG tabletIndication s:Lumbar radiculopathy TAKE ONE TABLET BY MOUTH EVERY EIGHT HOURS NEEDED FOR PAIN 30 tablet 025 Active oxyCODONE-acetam inophen (Percocet) 5-325 MG tabletIndication s:Chronic right shoulder pain,Lumbar radiculopathy,Ch ronic pain syndrome Take 1 tablet by mouth every 8 (eight) hours if needed for severe pain for up to 28 days. 84 tablet 025 2024 Active amLODIPine (Norvasc) 5 MG tablet TAKE ONE TABLET EVERY MORNING 30 tablet 11 Active venlafaxine XR (Effexor XR) 150 MG 24 hr capsule Take 150 mg by mouth in the morning. Active topiramate 50 MG tablet TAKE ONE TABLET IN THE MORNING AND EVENING 60 tablet 5 Active omega-3 (fish oil) 1000 MG capsule Take 1 capsule by mouth in the morning. OTC Active clonazePAM (KlonoPIN) 0.5 MG tablet Take 1 tablet by mouth at bed time. 021 2024 Discontinued(M ed list cleanup (will not trigger notification to Pharmacy)) amLODIPine (Norvasc) 5 MG tablet Take 1 tablet (5 mg) by mouth in the morning. 30 tablet 11 024 2024 Discontinued topiramate 50 MG tablet TAKE ONE TABLET IN THE MORNING AND EVENING 60 tablet 5 024 2024 Discontinued cyclobenzaprine (Flexeril) 5 MG tabletIndication s:Lumbar radiculopathy Take 1 tablet (5 mg) by mouth 3 times daily. 30 tablet 024 2024 Discontinued(T herapy completed) venlafaxine XR (Effexor XR) 225 MG 24 hr tablet Take 1 tablet by mouth Once per day. 025 2024 Discontinued(T herapy completed) azithromycin (Zithromax) 500 MG tabletIndication s:Asthma-COPD overlap syndrome (CMS/HCC) Take 1 tablet (500 mg) by mouth See administration instructions. 3 times a week Monday, Monday, Monday 10 tablet 025 2024 pregabalin (Lyrica) 150 MG capsuleIndicatio ns:Lumbar radiculopathy TAKE ONE CAPSULE TWICE DAILY IN THE MORNING AND AT BEDTIME 60 capsule 025 2024 Discontinued ibuprofen (IBU) 800 MG tabletIndication s:Lumbar radiculopathy TAKE ONE TABLET BY MOUTH EVERY EIGHT HOURS NEEDED FOR PAIN 30 tablet 025 2024 Discontinued oxyCODONE-acetam inophen (Percocet) 5-325 MG tabletIndication s:Chronic right shoulder pain,Lumbar radiculopathy,Ch ronic pain syndrome Take 1 tablet by mouth every 8 (eight) hours if needed for severe pain for up to 28 days. Do not start before December 20, 2024. 84 tablet 025 2024 Discontinued(R eorder (will not trigger notification to Pharmacy)) Active Problems Problem Noted Date Diagnosed Date Hospital discharge follow-up 11/29/2024 Assessment & Plan (11/29/2024 2:22 PM EST): Pt has completed her treatment for PNA and physical exam is normal today, pulm exam nl, no wheezing, cough, SOB, or increased work of breathing Pt is stable today Fall (on) (from) other stairs and steps, initial encounter 10/01/2024 Assessment & Plan (10/01/2024 8:56 AM EST): Day 1 sp fall, no focal neurological deficit, headache has been stable since the fall. Advised to take tylenol prn pain, heat to affected areas, monitor headache, new onset of nausea, vomiting, blurry vision, focal weakness, change on MS, if any of those, she will go immediately to ED. Geovanna ingram understands that being seen 24h after fall, some of the critical observation period is gone, we will continue to monitor for the next 3d. She will stay over at her friend's house this week and spend thanksgiving with his son. Order CT scan brain History of urinary hesitancy 09/10/2024 Assessment & Plan (09/10/2024 1:54 PM EST): Reports years of urinary hesitancy. She follows with specialist. -recommended to follow-up with specialist. -ER precautions discussed. Acute exacerbation of COPD with asthma Assessment & Plan (09/10/2024 1:54 PM EST): Diffuse, mild wheezing on exam with some scattered rhonchi. Likely acute exacerbation due to underlying URI. -No evidence of respiratory distress. Symptoms mild. -No evidence of dehydration. -Will prescribed short course of azithromycin and prednisone 09/10/24 -ER precautions discussed. Constipation 09/10/2024 Assessment & Plan (09/10/2024 1:56 PM EST): Reports decreased BMs. Abdominal exam benign. -will trial Doculax and glycerin suppositories 09/10/24 -ER precautions discussed. Lumbar radiculopathy 11/08/2023 Assessment & Plan (01/05/2024 4:59 PM EST): XRAY ordered today Short course of ibuprofen and flexeril will be prescribe Assessment & Plan (11/08/2023 2:41 PM EST): Seen on MRI L-spine 04/2023 (ordered by orthopedics/ [facility]) and patient was referred to pain clinic, she has appt in 4w. We called the clinic and they will put it on a waiting list for an earlier epidural injection. No signs of cauda equina syndrome at this time. I will increase Lyrica to max dose of 400mg/d x 1mo only and have her fu with PCP. She's aware that LFTs may go up again. Encouraged re stretching exercises for lumbar spine, no changes on other meds for now. Stage 3a chronic kidney disease 09/25/2023 Abdominal pain 09/22/2023 09/22/2023 Atypical chest pain 09/22/2023 09/22/2023 Diverticulosis 09/22/2023 09/22/2023 History of sleeve gastrectomy 09/22/2023 Intestinal malabsorption following gastrectomy 1 11/22/2022 09/22/2023 Overweight (BMI 25.0-29.9) 09/22/202309/22 Preop pulmonary/respiratory exam 09/22/2023 09/22/2023 Tubular adenoma 09/22/2023 09/22/2023 UTI (urinary tract infection) due to Enterococcu s 09/22/2023 09/22/2023 Pancreatic abnormality 09/22/2023 COPD exacerbation 09/20/2023 Assessment & Plan (09/20/2023 4:19 PM EST): -Rx augmenting and prednisone given 3 weeks of COPD exacerbation and continued ronchi and wheeze after treatment. -continue home rx from pulmonology Fibromyositis 05/22/2023 Knee pain 05/22/2023 Muscle pain 05/22/2023 Obesity 05/22/2023 Somatization disorder 05/22/2023 History of total bilateral knee replacement 05/06 Overview (05/22/2023): 02/2023 on the R 05/2023 on the L Cervical spondylosis without myelopathy 10/17/20 22 Cyst of pancreas 10/17/2022 Mass of pancreas 10/17/2022 Moderate persistent asthma without complication 10/17/2022 Centrilobular emphysema 02/07/2020 Paratracheal lymphadenopathy 01/17/2020 Carpal tunnel syndrome 12/16/2019 Overview (05/22/2023): CTR Left 2006, CTR Right 2003, Opiate dependence 01/15/2019 Overview (05/22/2023): On suboxone Acquired hypothyroidism 06/25/2018 Gastroesophageal reflux disease without esophagi tis 06/25/2018 Acute bilateral back pain 06/25/2018 Assessment & Plan (10/01/2024 8:52 AM EST): Sp fall, patient has underlying DDD spine but doesn't seem to have fractured a vertebra at this point, no obvious radicular sxs. Order Xrays Continue tylenol prn, heat to affected area Re consult prn worsening of radicular sxs. Primary osteoarthritis of both knees 06/25/2018 Seasonal allergies 06/25/2018 Vitamin D deficiency 06/25/2018 Pulmonary nodules 06/05/2017 Adenomatous polyp of colon 02/03/2017 Overview (05/22/2023): rept scope 5 yr rept scope 5 yr Type 2 diabetes mellitus 04/18/2016 Assessment & Plan (01/05/2024 4:59 PM EST): F/u with PCP Migraine 11/19/2014 Microalbuminuria 05/27/2014 Glaucoma 02/06/2013 Asthma-COPD overlap syndrome 04/20/2012 Overview (09/20/2023): chr asthmatic bronchitis Obstructive sleep apnea syndrome 04/20/2012 Overview (05/22/2023): Not using noninvasive ventilation Not using noninvasive ventilation Chronic pain 06/16/2011 Optic neuritis 03/24/2009 Overview (05/22/2023): Right sided. No MS according to 2 different neurologist. Her eye doctor is at [facility]. Osteopenia 11/22/2007 Depressive disorder 06/18/2007 Overview (05/22/2023): F/u [facility] counseling Dr Jurado Assessment & Plan (11/29/2024 2:23 PM EST): Pt is establish with psych prescriber, pt is satisfied with current services and medication regimen She declines additional support/services today Has f/u scheduled with PCP for next month Hypertension 03/27/2007 Osteoarthritis 03/27/2007 Overview (05/22/2023): Cervical, & Lumbosacral Spine,Thumb bases/CMC, Knees: R>L Previous CS and gel injections Pure hypercholesterolemia 03/07/2006 Resolved Problems Problem Noted Date Diagnosed Date Resolved Date Acute renal failure 05/22/2023 05/22/20 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 05/22/2023 Weight gain 08/22/2008 05/22/2023 Encounters Date Type Department Care Team Description 02/03/2025 Travel 02/01/2025 Refill [facility] [address] [place] [address] Name, MD Boo 01/31/2025 Telephone [facility] [address] [place] [address] Lexii Skinner MA March recalls 01/28/2025 Refill [facility] [address] [place] [address] Boo Hastings MD 01/17/2025 Refill [facility] [address] [place] [address] NameBoo MD Chronic right shoulder pain; Lumbar radiculopathy; Chronic pain syndrome 01/17/2025 Telephone [facility] [address] [place] [address] Boo Hastings MD 01/16/2025 Telephone [facility] [address] [place] [phone] Lexii Skinner MA march recalls 01/15/2025 10:00 AM EDT Office Visit [facility] ADULT DENTAL [address] [place] [address] Keegan Curtis 01/14/2025 Telephone [facility] [address] [place] [phone] NameBoo MD Med Refill 01/13/2025 1:00 PM EDT Office Visit [facility] OPTOMETRY [address] [place] [address] Pedro, Katlyn, OD Lamellar macular hole of right eye (Primary Dx); Optic neuropathy, right; Optic nerve asymmetry, right; Chorioretinal scar, right; Pseudophakia, right eye; Nuclear sclerotic cataract of left eye; Presbyopia 01/13/2025 Travel 01/13/2025 Refill [facility] [address] [place] [address] Boo Hastings MD Lumbar radiculopathy 01/06/2025 Telephone [facility] [address] [place] [phone] Boo Hastnigs MD Nurse Triage 01/06/2025 Refill [facility] [address] [place] [address] Boo Hastings MD Type 2 diabetes mellitus without complication, without long-term current use of insulin ([facility]) (Primary Dx) 01/06/2025 Telephone [facility] [address] [place] [phone] Boo Hastings MD Appointment Request 12/31/2024 Refill [facility] [address] [place] [phone] Boo Hastings MD 12/18/[address] [address] Boo Hastings MD Call Back Request 12/17/2024 Telephone [facility] [address] [place] [phone] Boo Hastings MD Medication Question 12/17/[address] [address] Boo Hastings MD PA 12/17/2024 Refill [facility] [address] [place] [phone] NameBoo MD Chronic right shoulder pain; Lumbar radiculopathy; Chronic pain syndrome 12/16/2024 Refill [facility] & PEDS [address] [place] [address] Bushra Frey NP Lumbar radiculopathy 12/16/2024 Refill [facility] [address] [place] [address] Boo Hastings MD Lumbar radiculopathy 12/12/2024 11:30 AM EST Telemedicine [address] [phone] Boo Hastings MD Asthma-COPD overlap syndrome (Primary Dx); Depression, unspecified depression type 12/06/2024 9:00 AM EST Telemedicine [facility] [address] [place] [address] Ame Love RN Chronic pain syndrome 12/06/2024 Travel 12/06/2024 Telephone [facility] [address] [place] [address] Ame Love, GEM Recommend EMPLOYMENT TRAINING SPECIALIST Tier 2 12/03/2024 10:00 AM EST Office Visit [facility] ADULT DENTAL [address] [place] [address] Dangelo Pino Dental calculus (Primary Dx) 11/29/2024 1:30 PM EST Office Visit [facility] [address] [place] [address] Boo Hastings MD Hospital discharge follow-up (Primary Dx); Type 2 diabetes mellitus without complication, without long-term current use of insulin ([facility]); Depressive disorder 11/29/2024 Travel 11/29/2024 Refill [facility] [address] [place] [phone] Boo Hastings MD Moderate persistent asthma without complication 11/27/2024 Telephone [facility] [address] [place] [phone] Boo Hastings MD Uber request 11/27/2024 Patient Outreach [facility] [address] [place] [phone] Boo Hastings MD Care Coordination (CHW outreach for SDOH CCA and food needs-referral completed /) 11/27/2024 Telephone [facility] [address] [place] [phone] Boo Hastings MD pt1 11/25/2024 Refill [facility] [address] [place] [address] Boo Hastings MD 11/22/2024 Refill [facility] P[facility] [address] [place] [address] Boo Hastings MD Lumbar radiculopathy 11/22/2024 Refill [facility] [address] [place] [address] Mahi, Lorrie, SILK SPOOLER Anxiety 11/22/2024 Refill [facility] [address] [place] [address] Joellen Valentine MD 11/21/2024 Telephone [facility] [address] [place] [phone] Boo Hastings MD 11/19/2024 Telephone [facility] [address] [place] [address] Boo Hastings MD FYI 11/19/2024 Telephone [facility] [address] [place] [phone] Boo Hastings MD Chart Prep 11/18/2024 Orders Only GENERIC EXTERNAL DATA DEPARTMENT Provider, Generic External Data 11/14/2024 Telephone [facility] [address] [place] [address] NameBoo MD Transition Of Care (Tcm) (HDF- scheduled with Sandhya at [facility]) 11/14/2024 Telephone [facility] [address] [place] [address] Boo Hastings MD 11/11/2024 Telephone [facility] [address] [place] [address] Name, MD Boo Elian back requested from Last 3 Months Immunizations Name Administration Dates Next Due Influenza injectable quadriv alent IIV4 with preservative 07/25/2023,01/01/2018,08/29/2016 Influenza injectable quadriv alent preservative free 09/28/2021,10/20/2020,11/26/2019 Influenza, IIV3, injectable 07/17/2015,1 ,07/17/2013,07/24,08/17/2011,09/19/2010,10/12/2009 ,08/22/2008,09/14/2007 Influenza, intradermal, quad rivalent, preservative free 07/17/2015,08/13/2014,07/17/2013,07/24,08/17/2011,10/12/2009,08/22/2008 ,09/14/2007 Novel [id number], preservative-free 10/12/2009 Pfizer Covid-19 Vaccine 12+ 02/03/2025,1 11/28/2020,12/10/2020,11/19 Pneumococcal Conjugate PCV 20 08/18/2023 Pneumococcal Polysaccharide PPSV23 03/14/2016, Tdap 04/04/2020,01/14/2010 Social History Tobacco Use Types Packs/Day Years Used Date Smoking Tobacco: Former Passive Smoke Exposure: Past Smokeless Tobacco: Never Tobacco Cessation:Counseling Given: Not Answered Alcohol Use Standard Drinks/Week Comments Never 0 (1 standard drink = 0.6 oz pur e alcohol) Alcohol Answer Date Recorded Frequency of Alcohol Consumption Not on file 05/16/2024 Average Number of Drinks Not on file 024 Frequency of Binge Drinking Not on file 05/06 Score 0 05/16/2024 Depression Answer Date Recorded Patient Health Questionnaire-9 Score 11 05/16/2024 Patient Health Questionnaire-9 Score 11 05/16/2024 Last PHQ-9: Questionnaire Data Not on file 0 05/16/2024 Housing Stability Answer Date Recorded What is your housing situation today? I have housing today, but I am worried about losing housing in the future 05/16/[address] you li ve. Do you have problems with any of the following? None of the above 05/16/2024 Food Insecurity Answer Date Recorded Within the past 12 months, y ou worried that your food would run out before you got money to buy more: Never True 05/16/2024 Within the past 12 months,th e food you bought just didn't last and you didn't have enough money to get more: Never True 09/2024 Transportation Answer Date Recorded In the past 12 months, has l ack of transportation kept you from medical appts, meetings, work or from getting things needed for daily living? No 05/16/2024 Utilities Answer Date Recorded In the past 12 months, has t he electric, gas, oil or water company threatened to shut off services in your home? No 05/16/2024 Depression Answer Date Recorded Patient Health Questionnaire-2 Score 6 05/16/2024 Internet Access Answer Date Recorded Internet Access Q1 No 07/05/2024 Internet Access Q2 I do not want or need it 06/08 Comments No Sex and Gender Information Value Date Recorded Sex Assigned at Female 09/05/2022 10:16 AM EDT Legal Sex Female 10:16 AM EDT Gender Identity Female 09/05/2022 10:16 AM EDT Sexual Orientation Straight 09/05/2022 10 :16 AM EDT Last Filed Vital Signs Vital Sign Reading Time Taken Comments Blood Pressure 118/76 02/03/2025 1:43 PM EDT Pulse 70 12/03/2024 10:07 AM EST Temperature 36.9 ??C (98.5 ??F) 11/29/2024 1:46 PM ES T Respiratory Rate 18 11/29/2024 1:46 PM EST Oxygen Saturation 97% 11/29/2024 1:46 PM EST Inhaled Oxygen Concentration - - Weight 65 kg (143 lb 6.4 oz) 11/29/2024 1:46 PM EST Height 147.3 cm (4' 10 ) 10/28/2024 11:14 AM EST Body Mass Index 29.97 10/28/2024 11:14 AM EST Plan of Treatment Upcoming Encounters Date Type Department Care Team (Late st Contact Info) Description 03/21/2025 11:00 AM EDT Medication Management [facility] [address] [place] [phone] Ira Orozco, PharmD [address] [place] [address] 04/21/2025 10:30 AM EDT Clinical Support [facility] [address] [place] [address] Ame Love, GEM 05/02/2025 10:00 AM EDT Office Visit [facility] [address] [place] [address] Katlyn Vasquez, OD [address] [place] [address] 05/16/2025 10:00 AM EDT Office Visit [facility] [address] [place] [address] Name, MD Boo [address] [place] [address] Health Maintenance Due Date Last Done Comments CT Colonography 1959 FIT DNA/Cologuard 1959 FIT 1959 FOBT 1959 Sigmoidoscopy 1959 Zoster Vaccines (1 of 2) 2009 RSV Patients and Patients Aged 60 years or older (1 - Risk 60-74 years 1-dose series) 2019 Diabetes: Urine Protein Screening 01/27/2022 01/27/2021 Influenza Vaccine (#1) 2024 3, 09/28/2021, 10/20/2020, Additional history exists Depression Monitoring (PHQ-9) 11/16/2024 05/16/2024, 05/16/2024 Dental Oral Exam 11/30/2024 05/29/2024 Lipid Panel 02/05/2025 02/06/2024, 02/14/2023 Mammogram 04/08/2025 04/08/2024, 04/14/2023 Alcohol/Substance Use Screening 05/16/2025 05/16/2024 Depression Screening 05/16/2025 05/16/2024, 05/16/20 SDOH Screening 05/16/2025 05/16/2024 Diabetes: Hemoglobin A1C 05/29/2025 025, 07/30/2024, 01/03/2024, Additional history exists Dental X-Ray: Bitewings 05/30/2025 05/29/2024 Dental Prophylaxis 06/03/2025 12/03/2024, 0 05/29/2024, 03/27/2023 Diabetes: Foot Exam 08/23/2025 08/23/2024, 08/23/2024, 08/23/2024, Additional history exists Tobacco Screening 01/29/2026 01/29/2025 Cervical Cancer Screening 09/04/2026 HPV/Cotest 09/04/2026 07/25/2017 Pap Smear 09/04/2026 09/04/2023 Eye Exam 01/13/2027 01/13/2025, 01/04, 01/13/2025, Additional history exists Dental X-Ray: Full Mouth 05/30/2027 05/29/2024 Colonoscopy 08/02/2027 08/02/2022 Colorectal Cancer Screening 08/02/2027 DTaP/Tdap/Td Vaccines (3 - Td or Tdap) 04/04/2030 04/04/2020, 01/14/2010 Pneumococcal Vaccine: 50+ Years Completed 08/18/2023, 03/14/2016, 09/19/2010 COVID-19 Vaccine Completed 02/03/2025, , 12/10/2020, Additional history exists HIB Vaccines Aged Out No longer eligi ble based on patient's age to complete this topic HPV Vaccines Aged Out No longer eligi ble based on patient's age to complete this topic Hepatitis A Vaccines Aged Out No long er eligible based on patient's age to complete this topic Hepatitis B Vaccines Aged Out No long er eligible based on patient's age to complete this topic IPV Vaccines Aged Out No longer eligi ble based on patient's age to complete this topic Meningococcal Vaccine Aged Out No bull steven eligible based on patient's age to complete this topic RSV under 20 months Aged Out No longe r eligible based on patient's age to complete this topic Rotavirus Vaccines Aged Out No longer eligible based on patient's age to complete this topic Goals Goal Patient Goal Type Associated Problems Recent Progress Patient-Stated? Author Blood Pressure < 140/90 Blood Pressure 118/76( 025 1:43 PM EDT) No Moe Johnson Procedures Procedure Name Priority Date/Time Associated Diagnosis Comments CASE PRESENTATION, DETAILED AND EXTENSIVE TREATMENT PLANNING Routine 01/15/2025 10:00 AM EDT 26 MIDF RESIN-BASED COMPOSITE - 4 OR MORE SURFACES (ANTERIOR) Routine 01/15/2025 10:00 AM EDT 25 MIDF RESIN-BASED COMPOSITE - 4 OR MORE SURFACES (ANTERIOR) Routine 01/15/2025 10:00 AM EDT 24 MIDF RESIN-BASED COMPOSITE - 4 OR MORE SURFACES (ANTERIOR) Routine 01/15/2025 10:00 AM EDT 23 MIDF RESIN-BASED COMPOSITE - 4 OR MORE SURFACES (ANTERIOR) Routine 01/15/2025 10:00 AM EDT OCT, OPTIC NERVE - OU - BOTH EYES Routine 01/13/2025 1:00 PM EDT Optic nerve asymmetry, right OCT, RETINA - OU - BOTH EYES Routine 01/13/2025 1:00 PM EDT Lamellar macular hole of right eye ORAL HYGIENE INSTRUCTIONS Routine 12/03/2024 10:00 AM EST PROPHYLAXIS - ADULT Routine 12/03/2024 1 0:00 AM EST CASE PRESENTATION, DETAILED AND EXTENSIVE TREATMENT PLANNING Routine 12/03/2024 10:00 AM EST POCT GLYCATED HEMOGLOBIN, TOTAL Routine 11/29/2024 1:50 PM EST Type 2 diabetes mellitus without complication, without long-term current use of insulin ([facility]) POCT GLUCOSE Routine 11/29/2024 1:50 PM EST Type 2 diabetes mellitus without complication, without long-term current use of insulin ([facility]) CT ABDOMEN PELVIS WO CONTRAST Routine 11/18/2024 7:[address] CHEST WO CONTRAST Routine 11/18/2024 7:03 PM EST LACTIC ACID Routine 11/18/2024 4:29 PM EST HIGH SENSITIVITY TROPONIN I Routine 11/18/2024 3:48 PM EST APTT Routine 11/18/2024 1:29 PM EST LIPASE Routine 11/18/2024 1:29 PM EST HIGH SENSITIVITY TROPONIN I Routine 11/18/2024 1:29 PM EST B TYPE NATRIURETIC PEPTIDE (BNP) Routine 11/18/2024 1:29 PM EST COMPREHENSIVE METABOLIC PANEL Routine 11/18/2024 1:29 PM EST PROTHROMBIN TIME-INR Routine 11/18/2024 1:29 PM EST CBC WITH AUTO DIFFERENTIAL Routine 11/18/2024 1:29 PM EST SARS COV2/INFLUENZA A/B AND RSV RNA QL NAAT Routine 11/18/2024 1:28 PM EST XR CHEST 2 VIEWS Routine 11/18/2024 1:11 PM EST INTRAORAL - COMPLETE SERIES OF RADIOGRAPHIC IMAGES Routine 05/29/2024 1:00 PM EDT Dental calculus Secondary dental caries associated with failed or defective dental adventism PERIODIC ORAL EVALUATION - ESTABLISHED PATIENT Routine 05/29/2024 1:00 PM EDT Dental calculus Secondary dental caries associated with failed or defective dental adventism HM MAMMOGRAPHY Routine 04/08/2024 LIPID PANEL, STANDARD Routine 02/06/2024 12:59 PM EDT Type 2 diabetes mellitus without complication, without long-term current use of insulin ([facility]) Hypertension, unspecified type PAP SMEAR Routine 09/04/2023 11:17 AM EDT HM COLONOSCOPY Routine 08/02/2022 10:14 AM EDT ALBUMIN, RANDOM URINE W/CREATININE Routine 01/27/2021 11:19 AM EDT ZZZ HISTORICAL HPV MRNA E6/E7 Routine 07/25/2017 9:30 AM EDT from Last 3 Months or Most Recently Relevant to Health Maintenance Results * OCT, Retina - OU - Both Eyes (01/13/2025 1:00 PM EDT) Katlyn Maravilla, OD - 01/29/2025 10:36 AM EDT OCT MACULA INTERPRETATION Optical Coherence Tomography Interpretation Report Measurements: OD ??OS Macula Thickness ??368 microns ??222 microns Test findings: OD: Lamellar hole with tenting of foveal structure, no cystoid macular edema (CME), mild retinal pigment epithelium (RPE) disruption centrally, no subretinal fluid (SRF) OS: Normal foveal contour, no cystoid macular edema (CME), no retinal pigment epithelium (RPE) disruption, no subretinal fluid (SRF) Impression and Plan: Longstanding lamellar macular hole, 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 No further intervention recommended at this time. Katlyn Vasquez OD OPHTH TOMOGRAPHY Final Result * OCT, Optic Nerve - OU - Both Eyes (01/13/2025 1:00 PM EDT) Katlyn Maravilla, OD - 01/29/2025 10:46 AM EDT Right Eye Images reviewed. To assess optic nerve function and for use in future follow-up. Left Eye Images reviewed. To assess optic nerve function and for use in future follow-up. Notes OCT OPTIC NERVE INTERPRETATION Optical Coherence Tomography Interpretation Report Test Details: Measurements: OD ??OS C/D Horizontal 0.85 ??0.61 C/D Vertical 0.81 ??0.68 Disc area 2.28 mm 2 ??2.45 mm 2 RNFL Average 87 microns ??99 microns ?? Test findings: OD: Moderate RNFL thinning superior quadrant, normal RNFL thickness in all other quadrants OS: Normal RNFL thickness 360 degrees Impression and Plan: Advanced cupping right eye (OD) with reduced vision. Previous diagnosis of optic neuritis in the right eye by another provider. Will have her return in 3-4 months for a visual field test. Result [facility] Katlyn Vasquez OD OPHTH TOMOGRAPHY Edited * POCT HGB A1C (11/29/2024 1:50 PM EST) Hemoglobin A1C 5.7 4.0 - 6.0 % QC Media Lot # [id number] Lot# Expiration Date Blood 11/29/2024 1:50 PM EST Result [facility] Boo Hastings MD POINT OF CARE TEST ENTER/EDIT OR DERABLES Final Result * POCT Glucose (11/29/2024 1:50 PM EST) Glucose Blood, POC 108 60 - 200 mg/dL QC Media Lot # [id number] Lot# Expiration Date ,025 Blood Capillary blood specimen / Unknown 11/29/2024 1:50 PM EST Result [facility] Boo Hastings MD POINT OF CARE TEST ENTER/EDIT OR DERABLES Final Result * CT Abdomen Pelvis w/o Contrast (11/18/2024 7:15 PM EST) Anatomical Region Laterality Modality Body, Pelvis, Abdomen Computed T omography 11/18/2024 7:15 PM EST Narrative 11/18/2024 7:16 PM EST ? [facility] ?[address] ?[place] [address] ? CT Scan Report ? Signed ? Patient: Lord,Juana ?MR#: [id number] ?? 13 ? : 1960 ?Acct:[id number] ? Age/Sex: 64 / F ?ADM Date: 01/13/25 ? Loc: HO.ED ? Attending Dr: ? Ordering Physician: Jaime Germain ?? Date of Service: 11/18/24 ?? Procedure(s): CT abdomen pelvis wo IV con ?? Accession Number(s): [id number] ? cc: Jaime Germain; Name,Boo FARLEY ? Report Number: ?? [id number]: Total DLP = ??427.25 mGy-cm ? CLINICAL HISTORY: fever ? CT abdomen and pelvis without contrast ? Comparison: None ? Findings: ?? Clustered centrilobular and tree-in-bud nodules in the bilateral lower ?? lobes. ?? Cholecystectomy changes. ?? Normal unenhanced liver, pancreas, spleen, and adrenal glands. ?? No findings of urinary tract calculus, obstruction, or inflammation. ?? Uterus and ovaries within normal limits. ?? No free fluid or free air within the abdomen or pelvis. ?? Sleeve gastrectomy changes. ?? No significant abnormality of the stomach, small bowel, or colon otherwise. ?? Grade 2 degenerative anterolisthesis of L4 on L5 measuring 9 mm. ?? Caokxmrq-lp-ebeeqn lumbar spine degenerative changes worst at L4-L5. ?? No acute fracture or suspicious bone lesion. ? IMPRESSION: ?? 1. Clustered nodularity in the lung bases consistent with infectious ?? process. ?? 2. Otherwise no acute finding. ? This document has been electronically signed by: Jame Wagner MD on ?? 11/18/2024 19:15:07 ? Dictated By: ?Jame Wagner MD ? Signed By: ?<Electronically signed by Jame Wagner MD in OV> ? 11/18/241915 ? DD/ 14 ? TD/TT: 11/18/241914 ? Auditing Clerk: ? Procedure Note Ander Jaquez - 11/18/[address] [address] [address] Scan Report Signed Patient: Sara Lord#: [id number] 13 : 9Acct:[id number] Age/Sex: 64 / FADM Date: 11/18/24 Loc: HO.ED Attending Dr: Ordering Physician: Jaime Germain Date of Service: 11/18/24 Procedure(s): CT abdomen pelvis wo IV con Accession Number(s): [id number] cc: Jaime Germain; Name,Boo FARLEY Report Number: [id number]: Total DLP = 427.25 mGy-cm CLINICAL HISTORY: fever CT abdomen and pelvis without contrast Comparison: None Findings: Clustered centrilobular and tree-in-bud nodules in the bilateral lower lobes. Cholecystectomy changes. Normal unenhanced liver, pancreas, spleen, and adrenal glands. No findings of urinary tract calculus, obstruction, or inflammation. Uterus and ovaries within normal limits. No free fluid or free air within the abdomen or pelvis. Sleeve gastrectomy changes. No significant abnormality of the stomach, small bowel, or colonotherwise. Grade 2 degenerative anterolisthesis of L4 on L5 measuring 9 mm. Winkdtui-rp-zvrrhp lumbar spine degenerative changes worst at L4-L5. No acute fracture or suspicious bone lesion. IMPRESSION: 1. Clustered nodularity in the lung bases consistent with infectious process. 2. Otherwise no acute finding. This document has been electronically signed by: Jame Wagner MD on 11/18/2024 19:15:07 Dictated By: Jame Wagner MD Signed By: <Electronically signed by Jame Wagner MD in OV> 11/18/241915 DD/ 14 TD/TT: 11/18/241914 Auditing Clerk: [facility] External Provider IMG CT PROCEDURES Final Result * CT Chest w/o Contrast (11/18/2024 7:03 PM EST) Anatomical Region Laterality Modality Body, Chest Computed Tomogra phy 11/18/2024 7:03 PM EST Narrative 11/18/2024 7:06 PM EST ? [facility] ?[address] ?[place] [address] ? CT Scan Report ? Signed ? Patient: Lord,Juana ?MR#: [id number] ?? 13 ? : 1960 ?Acct:[id number] ? Age/Sex: 64 / F ?ADM Date: 01/13/25 ? Loc: HO.ED ? Attending Dr: ? Ordering Physician: Jaime Germain ?? Date of Service: 11/18/24 ?? Procedure(s): CT chest wo IV con ?? Accession Number(s): [id number] ? cc: Jaime Germain; Name,Boo FARLEY ? Report Number: ?? [id number]: Total DLP = ??191.85 mGy-cm ? CLINICAL HISTORY: COughing. fever. Pneumonia? CT chest without contrast ? Comparison: CT/AL/SR - CT CHEST WO IV CON - 07/10/24 09:05 EDT ? Findings: ?? Clustered centrilobular and tree-in-bud nodules in the right lower lobe ?? and in the left lower lobe are nonspecific but are new from 07/10/2024 ?? exam and most likely represent infectious process. There is no ?? consolidation. No pleural effusion, pneumothorax, or other significant ?? pleural abnormality. ? Heart size normal. No pericardial effusion. No thoracic aortic aneurysm. ?? Normal diameter central pulmonary arteries. ? No acute finding in the partially visualized upper abdomen. ? No acute fracture. No suspicious lytic or blastic bone lesion. ? IMPRESSION: ?? 1. Clustered centrilobular and tree-in-bud nodules in the lower lobes are ?? nonspecific but most likely reflect atypical infectious or inflammatory ?? process. ? This document has been electronically signed by: Jame Wagner MD on ?? 11/18/2024 19:03:40 ? Dictated By: ?Jame Wagner MD ? Signed By: ?<Electronically signed by Jame Wagner MD in OV> ? 11/18/241903 ? DD/ 02 ? TD/TT: 11/18/241902 ? Auditing Clerk: ? Procedure Note Ander Jaquez - 11/18/[address] [address] [address] Scan Report Signed Patient: Saar Lord#: [id number] 13 : 9Acct:[id number] Age/Sex: 64 / FADM Date: 11/18/24 Loc: HO.ED Attending Dr: Ordering Physician: Jaime Germain Date of Service: 11/18/24 Procedure(s): CT chest wo IV con Accession Number(s): [id number] cc: Jaime Germain; Darling,Boo FARLEY Report Number: [id number]: Total DLP = 191.85 mGy-cm CLINICAL HISTORY: COughing. fever. Pneumonia? CT chest without contrast Comparison: CT/AL/SR - CT CHEST WO IV CON - 07/10/24 09:05 EDT Findings: Clustered centrilobular and tree-in-bud nodules in the right lower lobe and in the left lower lobe are nonspecific but are new from 07/10/2024 exam and most likely represent infectious process. There is no consolidation. No pleural effusion, pneumothorax, or other significant pleural abnormality. Heart size normal. No pericardial effusion. No thoracic aortic aneurysm. Normal diameter central pulmonary arteries. No acute finding in the partially visualized upper abdomen. No acute fracture. No suspicious lytic or blastic bone lesion. IMPRESSION: 1. Clustered centrilobular and tree-in-bud nodules in the lower lobes are nonspecific but most likely reflect atypical infectious or inflammatory process. This document has been electronically signed by: Jame Wagner MD on 11/18/2024 19:03:40 Dictated By: Jame Wagner MD Signed By: <Electronically signed by Jame Wagner MD in OV> 11/18/241903 DD/ 02 TD/TT: 11/18/241902 Auditing Clerk: [facility] External Provider IMG CT PROCEDURES Final Result * Lactic Acid (11/18/2024 4:29 PM EST) [facility] Lactic Acid 1.5 0.5 - 2.0 mmol/L [facility] 11/18/2024 4:29 PM EST 11/18/2024 4:33 PM EST Generic External Data Provider LAB BLOOD ORDERAB LES Final Result [facility] [address] [place] [phone] * High Sensitivity Troponin I (11/18/2024 3:48 PM EST) Only the most recent of2 resultswithin the time period is included. Pathologist [facility] TROPONIN I HIGH SENSITIVITY 11.4 <3.5 - 17.0 ng/L [facility] Comment:The Carrillo high sens itivity Troponin-I results should beused in conjunction with other diagnostic information suchas ECG, clinical observations and information, and patientsymptoms to aid in the diagnosis of PR. 11/18/2024 3:48 PM EST 11/18/2024 3:52 PM EST us Generic External Data Provider LAB BLOOD ORDERAB LES Final Result [facility] [address] [place] [phone] * (ABNORMAL) CBC auto differential (11/18/2024 1:29 PM EST) White Blood Count 12.1(H) 4.8 - 10.8 X10*3/uL [facility] Red Blood Count 4.05(L) 4.20 - 5.50 X10*6/uL [facility] Hemoglobin 12.4 12.0 - 16.0 g/dl [facility] Hematocrit 35.5(L) 37.0 - 47.0 % [facility] Mean Corpuscular Volume 87.7 80.0 - 98.0 fL [facility] Mean Corpuscular Hemoglobin 30.6 27.0 - 33.0 pg [facility] Mean Corpuscular HGB Conc 34.9 31.0 - 35.0 g/dl [facility] Red Cell Distribution Width 13.9 11.0 - 16.0 % [facility] Platelet Count 211 160 - 400 X10*3/uL [facility] Mean Platelet Volume 10.4 9.4 - 12.3 fL [facility] Neutrophils Percent Auto 85.0(H) 45 - 73 % [facility] Imm Gran Pct Auto 0.7(H) 0.0 - 0.4 % [facility] Lymphocytes Percent Auto 9.3(L) 20 - 40 % [facility] Monocytes Percent Auto 4.6 2 - 11 % [facility] Eosinophils Percent Auto 0.1 0 - 4 % [facility] Basophils Percent Auto 0.3 0 - 2 % [facility] NRBC Pct Auto 0.0 0.0 - 0.2 /100WBC [facility] Neutrophils Absolute Auto 10.3(H) 2.0 - 8.3 x10*3/uL [facility] Imm Gran Abs Auto 0.08(H) 0.00 - 0.03 X10*3/uL [facility] Lymphocytes Absolute Auto 1.1(L) 1.2 - 4.9 X10*3/uL [facility] Monocytes Absolute Auto 0.6 0.1 - 1.2 X10*3/uL [facility] Eosinophils Absolute Auto 0.0 0.0 - 0.4 X10*3/uL [facility] Basophils Absolute Auto 0.0 0.0 - 0.2 X10*3/uL [facility] NRBC Abs Auto 0.000 0.0 - 0.012 X10*3/uL [facility] 11/18/2024 1:29 PM EST 11/18/2024 1:32 PM EST us Generic External Data Provider LAB BLOOD ORDERAB LES Final Result Performing Organization Address City/[facility]/ZIP Co de Phone Number [facility] [address] [place] [phone] * Partial Thromboplastin Time, Activated (APTT) (11/18/2024 1:29 PM EST) Partial Thromboplastin Time 34.1 26.0 - 36.8 SEC [facility] Comment:For information rega rding the monitoring of direct thrombininhibitors, please refer to Pharmacy. 11/18/2024 1:29 PM EST 11/18/2024 1:32 PM EST us Generic External Data Provider LAB BLOOD ORDERAB LES Final Result Performing Organization Address City/[facility]/ZIP Co de Phone Number [facility] [address] [place] [phone] * (ABNORMAL) Prothrombin Time-INR (11/18/2024 1:29 PM EST) [facility] Prothrombin Time 14.0(H) 10.9 - 12.4 SEC [facility] INTERNATIONAL NORM RATIO 1.2(H) 0.9 - 1.1 [facility] Comment:INTERNATIONAL NORMAL IZED RATIO (INR) REFERENCE RANGES Reference RangeFor patients not on anticoagulant therapy: 0.9 - 1.1INR ranges for oral anticoagulanttherapy:For prevention and treatment of venous thrombosis and pulmonary embolism: 2.0 - 3.0For acute myocardial infarction with aspirin therapy: 2.0 - 3.0For acute myocardial infarction without aspirin therapy: 3.0 - 4.0For patients with mechanical prosthetic heart valves: 2.5 - 3.5 11/18/2024 1:29 PM EST 11/18/2024 1:32 PM EST Generic External Data Provider LAB BLOOD ORDERAB LES Final Result Performing Organization Address [facility] Co de Phone Number [facility] [address] [place] [phone] * B Type Natriuretic Peptide (BNP) (11/18/2024 1:29 PM EST) [facility] B Type Natriuretic Peptide 43 <100 pg/mL [facility] Comment:For those patients w ho are being treated with Natrecor(nesiritide, recombinant BNP), BNP testing should beperformed at least two hours post treatment in order toensure that only endogenous levels of BNP are detected. 11/18/2024 1:29 PM EST 11/18/2024 1:32 PM EST us Generic External Data Provider LAB BLOOD ORDERAB LES Final Result Performing Organization Address [facility] Co de Phone Number [facility] [address] [place] [phone] * Lipase (11/18/2024 1:29 PM EST) [facility] Lipase 23 8 - 78 U/L [facility] 11/18/2024 1:29 PM EST 11/18/2024 1:32 PM EST us Generic External Data Provider LAB BLOOD ORDERAB LES Final Result [facility] [address] [place] [phone] * (ABNORMAL) Comprehensive Metabolic Panel (11/18/2024 1:29 PM EST) Sodium 137 135 - 145 mmol/L [facility] Potassium 3.2(L) 3.3 - 5.1 mmol/L [facility] Chloride 107 96 - 108 mmol/L [facility] Carbon Dioxide 23 22 - 29 mmol/L [facility] Anion Gap 10(L) 12 - 20 [facility] Urea Nitrogen (BUN) 7(L) 9 - 16 mg/dL [facility] Creatinine, Serum 0.74 0.5 - 1.4 mg/dL [facility] Creatinine Clr Calc Pharmacy 62.5 [facility] Comment:Provided height and weight: 149.86 cm,65.771 kg.eGFR (calculated from the MDRD study equation) and eCrCl(calculated from the Cockcroft-Gault equation) are based ondifferent parameters and may not yield comparable results.If eCrCl result is absurd, please check patient'sheight/weight. Estimated Glomerular Filt Rate >60 [facility] Comment:Chronic Kidney Disea se: Estimated GFR < 60 mL/min/1.16s9Bxptdi Kidney Disease: Estimated GFR < 15 mL/min/1.73m2 Glucose 144(H) 60 - 115 mg/dL [facility] Calcium 9.2 8.4 - 10.2 mg/dL [facility] Bilirubin, Total 0.5 0.0 - 1.0 mg/dL [facility] Aspartate Amino Transferase 33(H) 5 - 31 U/L [facility] Alanine Aminotransferase 44(H) 0 - 31 U/L [facility] Total Protein 7.5 6.5 - 8.0 g/dL [facility] Albumin Level 4.3 3.5 - 5.0 g/dL [facility] Alkaline Phosphatase 125(H) 39 - 117 U/L [facility] 11/18/2024 1:29 PM EST 11/18/2024 1:32 PM EST Generic External Data Provider LAB BLOOD ORDERAB LES Final Result Performing Organization Address [facility]/ZIP Co de Phone Number [facility] [address] [place] [phone] * SARS-CoV-2 RNA, Influenza A/B, and RSV RNA, Ql NAAT (11/18/2024 1:28 PM EST) Influenza A PCR NEGATIVE Negative [facility] Influenza B PCR NEGATIVE Negative [facility] Resp Syncy Virus RNA Qual PCR NEGATIVE Negative [facility] SARS COV2 PCR NEGATIVE Negative [facility] Comment:All test results mus t be correlated with clinical findings.Negative results do not preclude SARS-CoV2, influenza Avirus, influenza B virus and/or RSV infectionand should not be used as the sole basis for treatment orother patient management decisions. Negative results must becombined with clinical observations, patient history, andepidemiological information.This test has not been evaluated for monitoring treatment ofinfection.This test has been authorized by the FDA under an EmergencyUse Authorization (EUA) for use by authorized laboratories.Testing performed on the [employer] GeneXpert utilizingreal-time RT-PCR.All SARS CoV2 and positive influenza A/B results arereported to [facility]. 11/18/2024 1:28 PM EST 11/18/2024 1:32 PM EST Generic External Data Provider LAB MICROBIOLOGY - GENERAL ORDERABLES Final Result Performing Organization Address [facility]/ZIP Co de Phone Number [facility] [address] [place] [phone] * XR Chest 2 Views (11/18/2024 1:11 PM EST) Anatomical Region Laterality Modality Chest Radiographic Cici ging 11/18/2024 1:11 PM EST Narrative 11/18/2024 1:46 PM EST ? [facility] ?[address] ?[place] [address] ?XRay Report ? Signed ? Patient: Lord,Juana ?MR#: [id number] ?? 13 ? : 1960 ?Acct:[id number] ? Age/Sex: 64 / F ?ADM Date: 11/18/24 ? Loc: HO.ED ? Attending Dr: ? Ordering Physician: Jeannie Vital NP ?? Date of Service: 11/18/24 ?? Procedure(s): XR chest 2V ?? Accession Number(s): [id number] ? cc: Darling,Boo FARLEY; Jeannie Vital NP ? EXAMINATION: ?? XR CHEST ? CLINICAL INFORMATION: ?? dyspnea ? COMPARISON: ?? X-ray dated November 06, 2024. ? TECHNIQUE: ?? 2 views of the chest were obtained. ? FINDINGS: ?? No consolidation, pleural effusion or pneumothorax. Pulmonary reticular ?? pattern. ?? Cardiomediastinal silhouette is normal in size. ?? Multilevel thoracic and upper lumbar spondylosis. S-shaped curvature of ?? the thoracolumbar spine. Osteopenia versus osteoporosis. ?? Vascular clips in the right upper quadrant abdomen. ? XR/XR chest 2V ?? IMPRESSION: ?? Chronic interstitial lung disease. No acute airspace disease. ? Electronically signed by: ??Dinesh Mcgregor MD ??11/18/2024 01:44 PM ?? EST RP ? Dictated By: ?Dinesh Chaney MD ? Signed By: ?<Electronically signed by Dinesh Barrera MD in OV> ? 11/18/24 1344 ? DD/ 1311 ? TD/TT: 11/18/24 1335 ? Auditing Clerk: ? Procedure Note Ander Jaquez - 11/18/2024 [place] [id number] [place] [address] XRay Report Signed Patient: Sara Lrod#: [id number] 13 : 9Acct:[id number] Age/Sex: 64 / FADM Date: 11/18/24 Loc: HO.ED Attending Dr: Ordering Physician: Jeannie Vital NP Date of Service: 11/18/24 Procedure(s): XR chest 2V Accession Number(s): [id number] cc: Name,Boo FARLEY; Jeannie Vital NP EXAMINATION: XR CHEST CLINICAL INFORMATION: dyspnea COMPARISON: X-ray dated November 06, 2024. TECHNIQUE: 2 views of the chest were obtained. FINDINGS: No consolidation, pleural effusion or pneumothorax. Pulmonary reticular pattern. Cardiomediastinal silhouette is normal in size. Multilevel thoracic and upper lumbar spondylosis. S-shaped curvature of the thoracolumbar spine. Osteopenia versus osteoporosis. Vascular clips in the right upper quadrant abdomen. XR/XR chest 2V IMPRESSION: Chronic interstitial lung disease. No acute airspace disease. Electronically signed by: Dinesh Mcgregor MD 11/18/2024 01:44 PM EST RP Dictated By: Dinesh Chaney MD Signed By: <Electronically signed by Dinesh Barrera MDin OV> 11/18/24 1344 DD/ 1311 TD/TT: 11/18/24 1335 Auditing Clerk: [facility] External Provider IMG XR PROCEDURES Final Result * Mammography (04/08/2024) Mammogram BIRADS 1 Normal, Abnormal, BIRADS 1 , BIRADS 2 Anatomical Region Laterality Modality Other Boo Hastings MD HEALTH MAINTENANCE Final Result * (ABNORMAL) Lipid Panel, Standard (02/06/2024 12:59 PM EDT) Triglycerides 106 <150 mg/dL [facility] Comment:Desirable Triglyceri de: less than 150 mg/dLBorderline High Triglyceride 150-199 mg/dLHigh Triglyceride: 200-499 mg/dLVery High Triglyceride: greater than or equal to 5OO mg/dL Cholesterol 213(H) <200 mg/dL [facility] Comment:Desirable Cholestero l: less than 200 mg/dLBorderline High Cholesterol: 200-239 mg/dLHigh Cholesterol: greater than 239 mg/dL LDL Cholesterol Calculated 126(H) <100 mg/dL [facility] Comment:Desirable LDL: less than 100 mg/dLNear Optimal/Above Optimal LDL: 110- 129 mg/dLBorderline High LDL: 130-159 mg/dLHigh LDL: 160-189 mg/dLVery High LDL: greater than or equal to 190 mg/dL HDL Cholesterol 66 >40 mg/dL [facility] Comment:Desirable HDL: great er than 40 mg/dL Note: This HDL assay may give artificially low results in patients with liver disease. Blood Venous blood specimen / Unknown 02/06/2024 12:59 PM EDT 02/06/2024 12:59 PM EDT us Boo Name LAB BLOOD ORDERABLES Final Resul t [facility] [address] [place] [phone] * Pap Smear (09/04/2023 11:17 AM EDT) 09/04/2023 11:1 7 AM EDT 09/05/2023 9:00 AM EDT Narrative [facility] - 09/21/2023 11:07 AM EST ----- ------- Name: Juana Lord ? Age/Sex: 63/F ? : 1960 Unit#: [id number] ?? Attend Dr: SHANTELLE DUNAWAY CNM ?Re09/04/23 ?Status: DEP REF ? Location: HO.CLNP ? Disch: ? ----- ------- SPEC : [id number] ?RECD: 09/05/23 ? STATUS: ??SOUT ? REQ NUM: [id number] ? JESUS: 09/04/23 ? SUBM DR: SHANTELLE DUNAWAY CNM ? ENTERED: ??09/05/23 ?SP TYPE: Pap Smr ?OTHR DR: ? ORDERED: ??Pap Smear ? Interpretation ?? Satisfactory for evaluation. ?? Atrophic. ?? Negative for intraepithelial lesion or malignancy. ? HPV unable to be performed due to error at reference lab. ?Clinical Information LMP: Unknown date Previous PAP test: Unknown date/findings ? Material Received ?? ThinPrep-Cervical ----- ------- Signed (signature on file) YEIMI Villanueva (ASCP) 09/21/231106 ? ----- ------- ? END OF REPORT ? Shantelle ALFONSO LAB CYTOLOGY ORDERABLES F inal Result [facility] [address] [place] [phone] * Hm Colonoscopy (08/02/2022 10:14 AM EDT) Colonoscopy Normal Normal Narrative Anita Marroquin - 08/02/2022 10:14 AM EDT Recommended 5 year follow up Historical Provider HEALTH MAINTENANCE Edited Result - Final * ALBUMIN, RANDOM URINE W/CREATININE (01/27/2021 11:19 AM EDT) Microalbumin Urine 3.2 See Note: mg/dL [facility] Comment: Reference Range: ?? Reference Range Not established Microalb/Creat Ratio 24 <30 mcg/mg creat [facility] Comment: ?? The ADA defines abnormalities in albumin excretion as follows: ?? Category ? Result (mcg/mg creatinine) ?? Normal ?<30 Microalbuminuria ? 30-299 ?? Clinical albuminuria ?? > OR = 300 ?? The ADA recommends that at least two of three specimens collected within a 3-6 month period be abnormal before considering a patient to be within a diagnostic category. Creatinine, Urine 133 20 - 275 mg/dL [facility] 01/27/2021 11:1 9 AM EDT us Shanelle Starr DIGITAL DIRECTOR LAB URINE ORDERABLES Final Resu lt [facility] [address] * HPV mRNA E6/E7 (07/25/2017 9:30 AM EDT) HPV mRNA E6/E7 Not Detected NOT DETECTED [facility] Comment: This test was performed using the APTIMA(R) HPV Assay ([employer] This assay detects E6/E7 viral messenger RNA (mRNA) from 14 high-risk HPV types (16,18,31,33,35,39,45,51, 52,56,58,59,66,68). For additional information please refer to: http://education.[place].OberScharrer/faq/LYH392i7 (This link is being provided for informational/ educational purposes only.) Test Performed by [facility], [facility], [address] [place] [address] John Aaron M.D., Ph.D., Director of Laboratories , [facility] [id number] Please note: ??Effective 07/18/2016, HPV testing will be performed using [employer] APTIMA test which targets mRNA. Detecting mRNA instead of DNA, as in older methods, offers significant improvements in specificity. 07/25/2017 9:30 AM EDT Shantelle Dunaway CNM HISTORICAL/NON ORDERABLE LABS Final Result [facility] [address] [place] [address], from Last 3 Months or Most Recently Relevant to Health Maintenance Insurance - [employer] [facility]AL [facility] [place] [address] DENTAL - [facility] Care Teams Voip Network Engineer Relationship Specialty Start Date End Date Name, MD Boo [address] [place] [address] PCP - General Family Medicine 04/26/19 Ira Orozco PharmD [address] [place] [address] Pharmacist Internal Medicine 02/03/25 Janessa Fraga 11/23/24
--- OUTSIDE RECORDS SUMMARY | 2025-02-06 09:36 | XMS_ITS | Encounter Summary ---
Author Organization [facility] Address [address] [place] [address] Care Team Providers Care Application Development Team Lead Name Role Phone Name, Boo FARLEY Primary [...] Details Date Type Department Care Team Description 07/05/2012 Business Doc Medical Records [address] [place] [address] Abstract, Provider Social History Tobacco Use Types Packs/Day Years [...] on filedocumented in this encounter Care Teams Application Development Team Lead Relationship Specialty Start Date End Date Boo Hastings MD PCP - General 03/26/07 08/23/15 Boo Hastings MD PCP - General Internal Medicine 08/24/15 11/16/15 Lissy Kumari DO PCP - General Internal Medicine 11/17/15 12/19/16 Community, Pcp PCP - General Internal Medicine 12/20/16 07/01/18 Verna Wright MD PCP - General Internal Medicine 07/02/18 [facility], Pcp PCP - General Internal Medicine 07/15/19 07/20/21 Name, MD Boo PCP - General Internal Medicine 04/06/19 06/02/19 Name, MD Boo PCP - General Internal Medicine 06/03/19 07/14/19 Name, MD Boo PCP - General Internal Medicine 06/03/22 documented as of this encounter
--- OUTSIDE RECORDS SUMMARY | 2025-02-06 09:37 | XMS_ITS | Encounter Summary ---
Author Organization [facility] Address [address] [place] [address] Care Team Providers Care Bender Helper Name Role Phone Name, Boo FARLEY Primary Care Provider Unavaillouann e Lissy Kumari DO Primary Care Pro vider Unavailable Community, Pcp Primary Care Provider Unavailabl e Verna Wright MD Primary Care Provider Un available Community, Pcp Primary Care Provider Unavailabl e Name, Boo FARLEY Primary Care Provider Unavailabl e Name, Boo FARLEY Primary Care Provider Unavailabl e Name, Boo FARLEY Primary Care Provider Unavailabl e Encounter Details Date Type Department Care Team Description 08/24/2015 Systems Lead Report Medical Records [address] [place] [address] Abstract, Provider Social History Tobacco Use Types [...] on filedocumented in this encounter Care Teams Bender Helper Relationship Specialty Start Date End Date Name, MD Boo PCP - General Internal Medicine 08/24/15 11/16/15 Lissy Kumari DO PCP - General Internal Medicine 11/17/15 12/19/16 Community, Pcp PCP - General Internal Medicine 12/20/16 07/01/18 Verna Wright MD PCP - General Internal Medicine 07/02/18 Community, Pcp PCP - General Internal Medicine 07/15/19 07/20/21 Name, MD Boo PCP - General Internal Medicine 04/06/19 06/02/19 NameBoo MD PCP - General Internal Medicine 06/03/19 07/14/19 Name, MD Boo PCP - General Internal Medicine 06/03/22 documented as of this encounter
--- OUTSIDE RECORDS SUMMARY | 2025-02-06 09:37 | XMS_ITS | Encounter Summary ---
Author Organization [facility] Address [address] [place] [address] Care Team Providers Care Stave Bolt Equalizer Name Role Phone Name, Boo FARLEY Primary [...] Details Date Type Department Care Team Description 11/26/2012 Business Doc Medical Records [address] [place] [address] Abstract, Provider Social History Tobacco Use Types [...] on filedocumented in this encounter Care Teams Stave Bolt Equalizer Relationship Specialty Start Date End Date Boo Hastings MD PCP - General 03/26/07 08/23/15 Boo Hastings MD PCP - General Internal Medicine 08/24/15 11/16/15 Lissy Kumari DO PCP - General Internal Medicine 11/17/15 12/19/16 Community, Pcp PCP - General Internal Medicine 12/20/16 07/01/18 Verna Wright MD PCP - General Internal Medicine 07/02/18 [facility], Pcp PCP - General Internal Medicine 07/15/19 07/20/21 Name, MD Boo PCP - General Internal Medicine 04/06/19 06/02/19 Name, MD Boo PCP - General Internal Medicine 06/03/19 07/14/19 Name, MD Boo PCP - General Internal Medicine 06/03/22 documented as of this encounter
--- OUTSIDE RECORDS SUMMARY | 2025-02-06 09:37 | XMS_ITS | Encounter Summary ---
Author Organization [employer] Address [address] [facility] 7t [place] [address] Care Team Providers Care Occupational Therapy Asst Name Role Phone Name, Boo FARLEY Primary Care Provider [phone] Ira Orozco PharmD Unavailable [phone] Encounter Details Date Type Department Care Team (Latest Contact Info) Description 03/01/2021 Abstract [facility] CONVERSIONS Dental, Provider, DDS Social History Tobacco Use Types Packs/Day Years Used Date Smoking Tobacco: Never Assessed Comments Unknown Sex and Gender Information Value Date Recorded Sex Assigned at Female 09/05/2022 10:16 AM EDT Legal Sex Female 10:16 AM EDT Gender Identity Female 09/05/2022 10:16 AM EDT Sexual Orientation Straight 09/05/2022 10 :16 AM EDT documented as of this encounter Plan of Treatment Upcoming Encounters Date Type Department Care Team (Late st Contact Info) Description 03/21/2025 11:00 AM EDT Medication Management [facility] MEDICINE [address] [place] [address] Ira Orozco, PharmD [address] [place] [address] 04/21/2025 10:30 AM EDT Clinical Support [facility] MEDICINE [address] [place] [address] Ame Love, RN 05/02/2025 10:00 AM EDT Office Visit [facility] OPTOMETRY [address] [place] [address] Katlyn Vasquez, OD [address] [place] [address] 05/16/2025 10:00 AM EDT Office Visit [facility] MEDICINE [address] [place] [address] Name, MD Boo [address] [place] [address] documented as of this encounter Visit Diagnoses Not on filedocumented in this encounter Care Teams Occupational Therapy Asst Relationship Specialty Start Date End Date Name, MD Boo [address] [place] [address] PCP - General Family Medicine 04/26/19 Ira Orozco PharmD [address] [place] [address] Pharmacist Internal Medicine 02/03/25 Jansesa Fraga 11/23/24 documented as of this encounter
--- OUTSIDE RECORDS SUMMARY | 2025-02-06 09:37 | XMS_ITS | Encounter Summary ---
Author Organization [facility] Address [address] [place] [address] Care Team Providers Care Erp Manager Name Role Phone Community, Pcp Primary Care Provider Unavailabl e Boo Hastings MD Primary Care Provider Unavailabl e Reason for Visit * Reason Onset Date Comments Appointment-Internal Referral 07/20/2020 ysiatry Encounter Details Date Type Department Care Team Description 07/20/2020 Telephone Physiatry - [address] [id number] Blair Conner MD Appointment-Internal Referral (Physiatry) Social History Tobacco Use Types Packs/Day Years [...] encounter Miscellaneous Notes * Telephone Encounter - Deisy Membreno - 07/20/2020 2:13 PM EDT Referral to Physiatry: NS 07/14 FYI to referring. No response from patient. All attempts exhausted to reach patient to book. documented in this encounter Plan of Treatment Not on file documented as of this encounter Visit Diagnoses Not on filedocumented in this encounter Care Teams Erp Manager Relationship Specialty Start Date End Date Community, Pcp PCP - General Internal Medicine 07/15/19 07/20/21 Boo Hastings MD PCP - General Internal Medicine 06/03/22 documented as of this encounter
--- OUTSIDE RECORDS SUMMARY | 2025-02-06 09:37 | XMS_ITS | Encounter Summary ---
Author Organization [facility] Address [address] [place] [address] Care Team Providers Care Head Grinder Name Role Phone Name, Boo FARLEY Primary [...] Details Date Type Department Care Team Description 05/14/2015 Driver Examiner Report Medical Records [address] [place] [address] Ovi Tsang MD Social History Tobacco Use Types Packs/Day [...] on filedocumented in this encounter Care Teams Head Grinder Relationship Specialty Start Date End Date Boo [...]
--- OUTSIDE RECORDS SUMMARY | 2025-02-06 09:37 | XMS_ITS | Encounter Summary ---
Author Organization [employer] Address [address] [facility] 7[address] [place] [address] Care Team Providers Care Wellness Ambassador Name Role Phone Name, Boo FARLEY Primary Care Provider [phone] Ira Orozco PharmD Unavailable [phone] Encounter Details Date Type Department Care Team (Latest Contact Info) Description 01/01/2020 Abstract [facility] CONVERSIONS Dental, Provider, DDS Social History [...] Upcoming Encounters Date Type Department Care Team ( st Contact Info) Description 03/21/2025 11:00 AM EDT Medication Management [facility] MEDICINE [address] [place] [address] Ira Orozco, PharmD [address] [place] [address] 04/21/2025 10:30 AM EDT Clinical Support [facility] MEDICINE [address] [place] [address] Ame Love, GEM 05/02/2025 10:00 AM EDT Office Visit [facility] OPTOMETRY [address] [place] [address] Katlyn Vasquez, OD [address] [place] [address] 05/16/2025 10:00 AM EDT Office Visit [facility] MEDICINE [address] [place] [address] Name, MD Boo [address] [place] [address] documented as of this encounter Visit Diagnoses Not on filedocumented in this encounter Care Teams Wellness Ambassador Relationship Specialty Start Date End Date Name, MD Boo [address] [place] [address] PCP - General Family Medicine 04/26/19 Ira Orozco PharmD [address] [place] [address] Pharmacist Internal Medicine 02/03/25 Janessa Fraga 11/23/24 documented as of this encounter
--- OUTSIDE RECORDS SUMMARY | 2025-02-06 09:37 | XMS_ITS | Encounter Summary ---
Author Organization [facility] Address [address] [place] [address] Care Team Providers Care Helper Chicken Farm Name Role Phone Name, Boo FARLEY Primary [...] Details Date Type Department Care Team Description 01/27/2013 Hospital Medical Records [address] [place] [address] Osvaldo Tran DO Social History Tobacco Use Types Packs/Day Years [...] on filedocumented in this encounter Care Teams Helper Chicken Farm Relationship Specialty Start Date End Date Boo [...]
--- OUTSIDE RECORDS SUMMARY | 2025-02-06 09:37 | XMS_ITS | Encounter Summary ---
Author Organization [facility] Address [address] [place] [address] Care Team Providers Care Tour Production Supervisor Name Role Phone Name, Boo FARLEY Primary [...] for Visit * Reason Onset Date Comments Provider Call Back 08/10/2015 Encounter Details Date Type Department Care Team Description 08/10/2015 Telephone Adult Medicine [address] [address] Name, MD Boo Provider Call Back Social History Tobacco Use Types Packs/Day Years [...] encounter Miscellaneous Notes * Telephone Encounter - Boo Foreman MD - 08/13/2015 2:23 PM EDT Noted, I will refer her here * Telephone Encounter - Hilary Palacio R.N. - 08/10/2015 12:32 PM EDT Message to dr foreman for consideration * Telephone Encounter - [place] Fleyudith - 08/10/2015 12:26 PM EDT Caller requesting call back from provider: Is the caller the patient? YES If caller is not the patient, what is the callers name? Yes Callers relationship to patient? Yes If person calling is not the patient themselves, is there a verbal release in FYI or permanent comments for this person: YES Reason for call back: Patient wasn't able to finish The sleep apnea Test At [facility] 5months ago She would like to set up an appointment for sleep study at [facility] Caller offered to speak with the nurse for assistance: YES Response: Patient offered to speak with nurse for assistance and patient agreed. Message forwarded to nurse. documented in this encounter Plan of Treatment Not on file documented as of this encounter Visit Diagnoses Diagnosis SHIRLEY (obstructive sleep apnea)- Primary Obstructive sleep apnea (adult) (pediatric) documented in this encounter Care Teams Tour Production Supervisor Relationship Specialty Start Date End Date Boo Foreman MD PCP - General 03/26/07 08/23/15 Boo Foreman [...]
--- OUTSIDE RECORDS SUMMARY | 2025-02-06 09:37 | XMS_ITS | Encounter Summary ---
Author Organization [facility] Address [address] [place] [address] Care Team Providers Care Desktop Publisher Name Role Phone Star, Pcp Primary Care Provider Unavailabl e Boo Hastings MD Primary Care Provider Unavailabl e Encounter Details Date Type Department Care Team Description 08/27/2019 Hospital Medical Records [address] [place] [address] Matt Mendoza MD [address] [place] [address] Social History Tobacco Use Types Packs/Day Years [...] on filedocumented in this encounter Care Teams Desktop Publisher Relationship Specialty Start Date End Date Star, Pcp PCP - General Internal Medicine 07/15/19 07/20/21 Boo Hastings MD PCP - General Internal Medicine 06/03/22 documented as of this encounter
--- OUTSIDE RECORDS SUMMARY | 2025-02-06 09:37 | XMS_ITS | Encounter Summary ---
Author Organization [employer] Address [address] [facility] 7[address] [place] [address] Care Team Providers Care Residential Treatment Specialist Name Role Phone Name, Boo FARLEY Primary Care Provider [phone] Ira Orozco PharmD Unavailable [phone] Encounter Details Date Type Department Care Team (Late st Contact Info) Description 09/19/2022 [facility] [employer] Information Management [address] [place], [place] [phone] Name, MD Boo [address] [place] [address] Social History Tobacco Use Types Packs/Day Years [...] Description 03/21/2025 11:00 AM EDT Medication Management [facility] MEDICINE [address] [place] [address] Ira Orozco, PharmD [address] [place] [address] 04/21/2025 10:30 AM EDT Clinical Support [facility] MEDICINE [address] [place] [phone] Ame Love RN 05/02/2025 10:00 AM EDT Office Visit [facility] OPTOMETRY [address] [place] [address] Katlyn Vasquez, OD [address] [place] [address] 05/16/2025 10:00 AM EDT Office Visit [facility] MEDICINE [address] [place] [address] Name, MD Boo [address] [place] [address] documented as of this encounter Visit Diagnoses Not on filedocumented in this encounter Care Teams Residential Treatment Specialist Relationship Specialty Start Date End Date Name, MD Boo [address] [place] [address] PCP - General Family Medicine 04/26/19 Ira Orozco, LesleyD [address] [place] [address] Pharmacist Internal Medicine 02/03/25 Janessa Fraga 11/23/24 documented as of this encounter
--- OUTSIDE RECORDS SUMMARY | 2025-02-06 09:37 | XMS_ITS | Encounter Summary ---
Author Organization [facility] Address [address] [place] [address] Care Team Providers Care Lead Infrastructure Architect Name Role Phone Name, Boo FARLEY Primary [...] Details Date Type Department Care Team Description 08/27/2015 Business Doc Medical Records [address] [place] [address] Abstract, Provider Social History Tobacco Use Types [...] on filedocumented in this encounter Care Teams Lead Infrastructure Architect Relationship Specialty Start Date End Date Name, [...]
--- OUTSIDE RECORDS SUMMARY | 2025-02-06 09:37 | XMS_ITS | Encounter Summary ---
Author Organization [facility] Address [address] [place] [address] Care Team Providers Care Cnc Manager Name Role Phone Name, Boo FARLEY Primary [...] Details Date Type Department Care Team Description 05/18/2015 Business Doc Medical Records [address] [place] [address] Abstract, Provider Social History Tobacco Use Types [...] on filedocumented in this encounter Care Teams Cnc Manager Relationship Specialty Start Date End Date Boo Hastings MD PCP - General 03/26/07 08/23/15 Boo Hastings MD PCP - General Internal Medicine 08/24/15 11/16/15 Lissy Kumari DO PCP - General Internal Medicine 11/17/15 12/19/16 Community, Pcp PCP - General Internal Medicine 12/20/16 07/01/18 Verna Wright MD PCP - General Internal Medicine 07/02/18 [facility], Pcp PCP - General Internal Medicine 07/15/19 07/20/21 Name, MD Boo PCP - General Internal Medicine 04/06/19 06/02/19 Name, MD Boo PCP - General Internal Medicine 06/03/19 07/14/19 Name, MD Boo PCP - General Internal Medicine 06/03/22 documented as of this encounter
--- OUTSIDE RECORDS SUMMARY | 2025-02-06 09:37 | XMS_ITS | Encounter Summary ---
Author Organization [facility] Address [address] [place] [address] Care Team Providers Care Senior Svp Name Role Phone Verna Wright MD Primary Care Provider Un available Community, Pcp Primary Care Provider Unavailabl e Name, Boo FARLEY Primary Care Provider Unavailabl e Name, Boo FARLEY Primary Care Provider Unavailabl e Name, Boo FARLEY Primary Care Provider Unavailabl e Encounter Details Date Type Department Care Team Description 03/07/2019 Metal Sorter Report Medical Records [address] [place] [address] Jaden Amos MD Social History Tobacco Use Types Packs/Day [...] on filedocumented in this encounter Care Teams Senior Svp Relationship Specialty Start Date End Date Verna Wright MD PCP - General Internal Medicine 07/02/18 Community, Pcp PCP - General Internal Medicine 07/15/19 07/20/21 Boo Hastings MD PCP - General Internal Medicine 04/06/19 06/02/19 Boo Hastings MD PCP - General Internal Medicine 06/03/19 07/14/19 Boo Hastings MD PCP - General Internal Medicine 06/03/22 documented as of this encounter
--- OUTSIDE RECORDS SUMMARY | 2025-02-06 09:37 | XMS_ITS | Encounter Summary ---
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); Fibromyalgia; Moderate persistent asthma in adult without complication; Pulmonary nodule; Former smoker; Mixed simple and mucopurulent chronic bronchitis (HCC); Chronic obstructive pulmonary disease, unspecified COPD type (HCC); SHIRLEY (obstructive sleep apnea) mild overall AHI 5; moderate in REM AHI 24; Centrilobular emphysema (HCC) Social History Tobacco Use Types Packs/Day Years [...] on file documented as of this encounter Procedures Procedure Name Priority Date/Time Associated Diagnosis Comments CHG RADIOLOGIC EXAM CHEST 2 VIEWS Routine 12/25/2019 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) Fibromyalgia Moderate persistent asthma in adult without complication Pulmonary nodule Former smoker Mixed simple and mucopurulent chronic bronchitis (HCC) Chronic obstructive pulmonary disease, unspecified COPD type (HCC) SHIRLEY (obstructive sleep apnea) mild overall AHI 5; moderate in REM AHI 24 Centrilobular emphysema (HCC) documented in this encounter Results * RADIOLOGIC EXAM CHEST 2 VIEWS (12/25/2019) Narrative Authorizing Provider Result Lawanda Pinzon MD RADIOLOGY documented in this encounter Visit Diagnoses Diagnosis 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) Fibromyalgia Mylagia and myositis, unspecified Moderate persistent asthma in adult without complication Pulmonary nodule Solitary pulmonary nodule Former smoker Personal history of tobacco use, presenting hazards to health Mixed simple and mucopurulent chronic bronchitis (HCC) Other chronic bronchitis Chronic obstructive pulmonary disease, unspecified COPD type (HCC) SHIRLEY (obstructive sleep apnea) mild overall AHI 5; moderate in REM AHI 24 Obstructive sleep apnea (adult) (pediatric) Centrilobular emphysema (HCC) Other emphysema documented in this encounter Care Teams Keno Writer Relationship Specialty Start Date End Date Community, Pcp PCP - General Internal Medicine 07/15/19 07/20/21 Name, MD Boo PCP - General Internal Medicine 06/03/22 documented as of this encounter
--- OUTSIDE RECORDS SUMMARY | 2025-02-06 09:37 | XMS_ITS | Encounter Summary ---
Author Organization [facility] Address [address] [place] [address] Care Team Providers Care Heel Seat Sander Name Role Phone Name, Boo FARLEY Primary [...] for Visit * Reason Onset Date Comments refill request 04/07/2015 Encounter Details Date Type Department Care Team Description 04/07/2015 Refill Adult Medicine [address] [address] Name, MD Boo refill request Social History Tobacco Use Types Packs/Day Years [...] encounter Miscellaneous Notes * Telephone Encounter - Ynes Ham M.A. - 04/07/2015 4:49 PM EDT IN PPU PREVIOUS MESSAGES STATES Ynes Ham M.A. at 04/07/2015 10:32 AM Status: Signed Script written and is in patient pick-up. * Telephone Encounter - Rodrigue Gonzalez - 04/07/2015 4:38 PM EDT Pt calling on status * Telephone Encounter - Radha De Los Santos - 04/07/2015 4:16 PM EDT Patient calling on status. * Telephone Encounter - Camille Lazo - 04/07/2015 3:47 PM EDT Patient would like script to be: PLACED IN PATIENT BALL RACKER FYI- Patient called in script this morning, refill encounter closed but does not say if script is filled, or denied. WHEN WAS THE PATIENT'S LAST APPOINTMENT IN ADULT MEDICINE? 03/26/15 WHEN WAS THE LAST TIME THE PATIENT SAW THEIR PCP? 03/13/15 Does patient have an upcoming appointment? Yes 06/12/15 (THE MEDICATION REQUESTED IS ON THE MED LIST ABOVE) All of the medications requested were on the CURRENT MEDS list Did you check the Pharmacy information above?: YES Patient wants: 30 -day supply Is this a mail order prescription request ? NO Patients current insurance carrier is: [place] / [place] / Product Type: MEDICARE [id number] documented in this encounter Plan of Treatment Not on file documented as of this encounter Visit Diagnoses Diagnosis FIBROMYALGIA - MYALGIA & MYOSITIS, UNSPECIFI Mylagia and myositis, unspecified Chronic low back pain Lumbago documented in this encounter Care Teams Heel Seat Sander Relationship Specialty Start Date End Date Name, MD Boo PCP - General 03/26/07 08/23/15 Name, MD Boo PCP - General Internal [...]
--- OUTSIDE RECORDS SUMMARY | 2025-02-06 09:37 | XMS_ITS | Encounter Summary ---
Author Organization [employer] Address [address] [facility] [address] [place] [address] Care Team Providers Care Brim Pouncer Machine Operator Name Role Phone Name, Boo FARLEY Primary Care Provider [phone] Ira Orozco PharmD Unavailable [phone] Encounter Details Date Type Department Care Team (Latest Contact Info) Description 06/08/2022 Abstract [facility] CONVERSIONS Dental, Provider, DDS Social History [...] Description 03/21/2025 11:00 AM EDT Medication Management [facility] MEDICINE [address] [place] [address] Ira Orozco, PharmD [address] [place] [address] 04/21/2025 10:30 AM EDT Clinical Support [facility] [address] [place] [address] Ame Love, RN 05/02/2025 10:00 AM EDT Office Visit [facility] OPTOMETRY [address] [place] [address] Katlyn Vasquez, OD [address] [place] [address] 05/16/2025 10:00 AM EDT Office Visit [facility] MEDICINE [address] [place] [address] Name, MD Boo [address] [place] [address] documented as of this encounter Visit Diagnoses Not on filedocumented in this encounter Care Teams Brim Pouncer Machine Operator Relationship Specialty Start Date End Date Name, MD Boo [address] [place] [address] PCP - General Family Medicine 04/26/19 Ira Orozco PharmD [address] [place] [phone] Pharmacist Internal Medicine 02/03/25 Janessa Fraga 11/23/24 documented as of this encounter
--- OUTSIDE RECORDS SUMMARY | 2025-02-06 09:37 | XMS_ITS | Encounter Summary ---
Author Organization [facility] Address [address] [place] [address] Care Team Providers Care Dress Fitter Name Role Phone Name, Boo FARLEY Primary [...] Details Date Type Department Care Team Description 01/18/2013 Vb Net Developer Report Medical Records [address] [place] [address] Ada Anderson PA-C Social History Tobacco Use Types Packs/Day Years [...] on filedocumented in this encounter Care Teams Dress Fitter Relationship Specialty Start Date End Date Boo [...]
--- OUTSIDE RECORDS SUMMARY | 2025-02-06 09:37 | XMS_ITS | Encounter Summary ---
Author Organization [facility] Address [address] [place] [address] Care Team Providers Care Copper Miner Name Role Phone Community, Pcp Primary Care Provider Unavailabl e Boo Hastings MD Primary Care Provider Unavailabl e Encounter Details Date Type Department Care Team Description 01/14/2020 Bioprocess Development Engineer Report Medical Records [address] [place] [phone] Social History Tobacco Use Types Packs/Day Years [...] on filedocumented in this encounter Care Teams Copper Miner Relationship Specialty Start Date End Date Community, Pcp PCP - General Internal Medicine 07/15/19 07/20/21 Boo Hastings MD PCP - General Internal Medicine 06/03/22 documented as of this encounter
--- OUTSIDE RECORDS SUMMARY | 2025-02-06 09:37 | XMS_ITS | Encounter Summary ---
Author Organization [facility] Address [address] [place] [address] Care Team Providers Care Insurance Agency Manager Name Role Phone Community, Pcp Primary Care Provider Unavailabl e NameBoo MD Primary Care Provider Unavailabl e Encounter Details Date Type Department Care Team Description 09/07/2020 Hospital Medical Records [address] [place] [address] Deyvi Castro DO Social History Tobacco Use Types Packs/Day [...] on filedocumented in this encounter Care Teams Insurance Agency Manager Relationship Specialty Start Date End Date Community, Pcp PCP - General Internal Medicine 07/15/19 07/20/21 Boo Hastings MD PCP - General Internal Medicine 06/03/22 documented as of this encounter
--- OUTSIDE RECORDS SUMMARY | 2025-02-06 09:37 | XMS_ITS | Encounter Summary ---
Author Organization [facility] Address [address] [place] [address] Care Team Providers Care Inspector Radar And Electronics Name Role Phone Community, Pcp Primary Care Provider Unavailabl e NameBoo MD Primary Care Provider Unavailabl e Encounter Details Date Type Department Care Team Description 12/02/2019 Release of Information Medical Records [address] [place] [address] Abstract, Provider Social History Tobacco Use Types [...] on file documented as of this encounter Nursing Notes * Keke Villanueva - 12/02/2019 10:04 AM EST AUTHORIZATION TO OBTAIN RECORDS MAILED TO [facility]. documented in this encounter Plan of Treatment Not on file documented as of this encounter Visit Diagnoses Not on filedocumented in this encounter Care Teams Inspector Radar And Electronics Relationship Specialty Start Date End Date Community, Pcp PCP - General Internal Medicine 07/15/19 07/20/21 Boo Hastings MD PCP - General Internal Medicine 06/03/22 documented as of this encounter
--- OUTSIDE RECORDS SUMMARY | 2025-02-06 09:37 | XMS_ITS | Encounter Summary ---
Author Organization [facility] Address [address] [facility] 7t [place] [address] Care Team Providers Care Health Care Manager Name Role Phone Name, Boo FARLEY Primary Care Provider [phone] Ira Orozco PharmD Unavailable [phone] Encounter Details Date Type Department Care Team (Late st Contact Info) Description 10/21/2022 Orders Only [facility] MEDICINE [address] [place] [address] Lizzie Coburn RN Social History Tobacco Use Types Packs/Day Years Used Date Smoking Tobacco: Never Assessed Depression Answer Date Recorded Patient Health Questionnaire-9 Score 6 10/25/2022 Depression Answer Date Recorded Patient Health Questionnaire-2 Score 0 10/25/2022 Comments Unknown Sex and Gender Information Value [...] Description 03/21/2025 11:00 AM EDT Medication Management [facility] MEDICINE [address] [place] [address] Ira Orozco, PharmD [address] [place] [address] 04/21/2025 10:30 AM EDT Clinical Support [facility] MEDICINE [address] [place] [address] Ame Love RN 05/02/2025 10:00 AM EDT Office Visit [facility] OPTOMETRY [address] [place] [address] Katlyn Vasquez, OD [address] [place] [address] 05/16/2025 10:00 AM EDT Office Visit [facility] MEDICINE [address] [place] [address] Name, MD Boo [address] [place] [address] documented as of this encounter Procedures Procedure Name Priority Date/Time Associated Diagnosis Comments VITAMIN D 25-OH (D2 AND D3) Routine 02/01/2023 10:41 AM EDT VITAMIN B12/FOLATE, SERUM PANEL Routine 02/01/2023 10:41 AM EDT TSH W/REFLEX TO FT4 Routine 02/01/2023 1 0:41 AM EDT LIPASE Routine 02/01/2023 10:41 AM EDT COMPREHENSIVE METABOLIC PANEL Routine 02/01/2023 10:41 AM EDT documented in this encounter Results * (ABNORMAL) VITAMIN D 25-OH (D2 AND D3) (02/01/2023 10:41 AM EDT) [facility] Vitamin D, 25-OH, D2 <4 ng/mL [facility] Comment:This test was develo ped and its analytical performancecharacteristics have been determined by [employer] [place], [place]. It hasnot been cleared or approved by the U.S. Food and DrugAdministration. This assay has been validated pursuantto the CLIA regulations and is used for clinicalpurposes.THIS TEST WAS PERFORMED AT:[employer]/[facility] [place] [address]EABEQTTCUONG DE LEON MD,PHD Vitamin D, 25-OH, D3 29 ng/mL [facility] Comment:This test was barron pal and its analytical performancecharacteristics have been determined by [employer] [place], [place]. It hasnot been cleared or approved by the U.S. Food and DrugAdministration. This assay has been validated pursuantto the CLIA regulations and is used for clinicalpurposes. Vitamin D, 25-OH, Total 29(A) 30 - 100 ng/mL [facility] Comment: Vitamin D, 25-Hydroxy reports concentrations of twocommon forms, 25-OHD2 and 25- OHD3. 25-OHD3 indicatesboth endogenous production and supplementation.25-OHD2 is an indicator of exogenous sources such asdiet or supplementation. ??Therapy is based onmeasurement of Total 25-OHD, with levels <20 ng/mLindicative of Vitamin D deficiency, while levelsbetween 20 ng/mL and 30 ng/mL suggest insufficiency.Optimal levels are > or = 30 ng/mL.Vitamin D is fat-soluble and therefore inadvertent orintentional ingestion of excessively high amountscould be toxic. Studies in children and adults suggestblood levels would need to exceed 150 ng/mL beforethere is any concern. Leo MF, [place],Selam ALMARAZ, et al. Evaluation, treatment andprevention of vitamin D deficiency: an EndocrineSociety clinical practice guideline. J Clin EndocrinolMetab. 2011;96(7):1911-30.For additional information, please refer tohttp://education.Certona/faq/RPX367(This link is being provided for informational/educational purposes only.) 02/01/2023 10:4 1 AM EDT 02/01/2023 10:41 AM EDT us [facility] External Provider LAB BLO OD ORDERABLES Final Result [facility] [address] [place] [phone] * TSH W/Reflex to FT4 (02/01/2023 10:41 AM EDT) TSH reflex Free T4 0.49 0.32 - 4.0 uIU/mL [facility] 02/01/2023 10:4 1 AM EDT 02/01/2023 10:41 AM EDT [facility] External Provider LAB BLO OD ORDERABLES Final Result Performing Organization Address [facility] Co de Phone Number [facility] [address] [place] [phone] * Vitamin B12/Folate, Serum Panel (02/01/2023 10:41 AM EDT) Vitamin B12 697 200 - 900 pg/mL [facility] Comment:NORMAL 200-900 PG/ML INDETERMINATE 160-199 PG/ML DEFICIENT < 160 PG/ML Folate 16.9 > or = 4.0 ng/mL [facility] Comment:Reference Values:> o r = 4.0 ng/mL< 4.0 ng/mL suggests folate deficiency Methotrexate, aminopterin and folinic acid(leucovorin) are chemotherapeutic agents whose molecularstructures are similar to folate; therefore, the Architectfolate assay cannot be used for patients using these drugs. 02/01/2023 10:4 1 AM EDT 02/01/2023 10:41 AM EDT [facility] External Provider LAB BLO OD ORDERABLES Final Result Performing Organization Address [facility] Co de Phone Number [facility] [address] [place] [phone] * Lipase (02/01/2023 10:41 AM EDT) Lipase 21 8 - 78 U/L [facility] 02/01/2023 10:4 1 AM EDT 02/01/2023 10:41 AM EDT [facility] External Provider LAB BLO OD ORDERABLES Final Result Performing Organization Address City/[facility]/ZIP Co de Phone Number [facility] [address] [place] [address] [phone] * (ABNORMAL) Comprehensive Metabolic Panel (02/01/2023 10:41 AM EDT) Sodium 143 135 - 145 mmol/L [facility] Potassium 4.2 3.3 - 5.1 mmol/L [facility] Chloride 108 96 - 108 mmol/L [facility] Carbon Dioxide 25 22 - 29 mmol/L [facility] Anion Gap 14 12 - 20 [facility] Urea Nitrogen (BUN) 19(H) 9 - 16 mg/dL [facility] Creatinine, Serum 0.73 0.5 - 1.4 mg/dL [facility] Estimated Glomerular Filt Rate >60 [facility] Comment:NOTE: For -Am erican individuals, multiply the result by 1.210.Chronic Kidney Disease: Estimated GFR < 60 mL/min/1.63c8Pqhdjw Kidney Disease: Estimated GFR < 15 mL/min/1.73m2 Glucose 113 60 - 115 mg/dL [facility] Calcium 9.6 8.4 - 10.2 mg/dL [facility] Bilirubin, Total 0.5 0.0 - 1.0 mg/dL [facility] Aspartate Amino Transferase 29 5 - 31 U/L [facility] Alanine Aminotransferase 54(H) 0 - 31 U/L [facility] Total Protein 7.1 6.5 - 8.0 g/dL [facility] Albumin Level 4.6 3.5 - 5.0 g/dL [facility] Alkaline Phosphatase 73 39 - 117 U/L [facility] 02/01/2023 10:4 1 AM EDT 02/01/2023 10:41 AM EDT us [facility] External Provider LAB BLO OD ORDERABLES Final Result Performing Organization Address City/[facility]/ZIP Co de Phone Number [facility] [address] [place] [address] [phone] documented in this encounter Visit Diagnoses Not on filedocumented in this encounter Care Teams Health Care Manager Relationship Specialty Start Date End Date Name, MD Boo [address] [place] [address] PCP - General Family Medicine 04/26/19 Ira Orozco, [place] [address] [place] [address] Pharmacist Internal Medicine 02/03/25 Janessa Fraga 11/23/24 documented as of this encounter
--- OUTSIDE RECORDS SUMMARY | 2025-02-06 09:37 | XMS_ITS | Encounter Summary ---
Author Organization [facility] Address [address] [place] [address] Care Team Providers Care Ip Counsel Name Role Phone Community, Pcp Primary Care Provider Unavailabl e Name, Boo FARLEY Primary Care Provider Unavailabl e Reason for Visit * Reason Onset Date Comments APPOINTMENT 02/07/2020 SHIRLEY Encounter Details Date Type Department Care Team Description 02/07/2020 Telephone Pulmonology [address] [place], [place] [phone] Bryce Pinzon MD [address] [place] [phone] APPOINTMENT (SHIRLEY) Social History Tobacco Use Types Packs/Day Years [...] encounter Miscellaneous Notes * Telephone Encounter - Devora Darnell - 02/13/2020 2:41 PM EDT Spoke to patient regarding an appointment with Susi or Billie for SHIRLEY, but patient stated she will call us back next week to schedule this appointment. * Telephone Encounter - Devora Darnell - 02/11/2020 2:53 PM EDT Left message for patient to call back to schedule an appt w/Susi or Billie for SHIRLEY. * Telephone Encounter - Nae Rodriguez - 02/10/2020 11:09 AM EDT Please book patient a consult with Susi or Billie for SHIRLEY. Thank you. * Telephone Encounter - Bryce Pinzon MD - 02/07/2020 10:59 AM EDT Patient has SHIRLEY. She need follow up with Sleep specialist. Please set up appointment. documented in this encounter Plan of Treatment Not on file documented as of this encounter Visit Diagnoses Not on filedocumented in this encounter Care Teams Ip Counsel Relationship Specialty Start Date End Date Community, Pcp PCP - General Internal Medicine 07/15/19 07/20/21 Name, MD Boo PCP - General Internal Medicine 06/03/22 documented as of this encounter
--- OUTSIDE RECORDS SUMMARY | 2025-02-06 09:37 | XMS_ITS | Encounter Summary ---
Author Organization [facility] Address [address] [place] [address] Care Team Providers Care Vacuum Caster Name Role Phone Verna Wright MD Primary Care Provider Un available Community, Pcp Primary Care Provider Unavailabl e Name, Boo FARLEY Primary Care Provider Unavailabl e Name, Boo FARLEY Primary Care Provider Unavailabl e Name, Boo FARLEY Primary Care Provider Unavailabl e Reason for Visit * Reason Onset Date Comments refill request 02/11/2019 Encounter Details Date Type Department Care Team Description 02/11/2019 Refill Adult Medicine [address] [address] Verna Wright MD refill request Social History Tobacco Use Types [...] encounter Miscellaneous Notes * Telephone Encounter - Brittney Leonrad - 02/11/2019 9:56 AM EDT Patient would like script to be: E-PRESCRIBED/FAXED TO PHARMACY WHEN WAS THE PATIENT'S LAST APPOINTMENT IN ADULT MEDICINE? 01/15/19 WHEN WAS THE LAST TIME THE PATIENT SAW THEIR PCP? Same as above Does patient have an upcoming appointment? Will call to book (THE MEDICATION REQUESTED IS ON THE MED LIST ABOVE) All of the medications requested were on the CURRENT MEDS list Did you check the Pharmacy information above?: YES Patient wants: 30 -day supply Is this a mail order prescription request ? NO If the refill is from a FAXED refill request what is the RX # listed on the fax? N/A Patients current insurance carrier is: [place] / [place] / Product Type: MEDICARE [id number] documented in this encounter Plan of Treatment Not on file documented as of this encounter Visit Diagnoses Not on filedocumented in this encounter Care Teams Vacuum Caster Relationship Specialty Start Date End Date Verna Wright MD PCP - General Internal Medicine 07/02/18 [facility] Pcp PCP - General Internal Medicine 07/15/19 07/20/21 NameBoo MD PCP - General Internal Medicine 04/06/19 06/02/19 Boo Hastings MD PCP - General Internal Medicine 06/03/19 07/14/19 Boo Hastings MD PCP - General Internal Medicine 06/03/22 documented as of this encounter
--- OUTSIDE RECORDS SUMMARY | 2025-02-06 09:37 | XMS_ITS | Encounter Summary ---
Author Organization [facility] Address [address] [place] [address] Care Team Providers Care Privacy Director Name Role Phone Name, Boo FARLEY Primary [...] Details Date Type Department Care Team Description 02/21/2013 Business Doc Medical Records [address] [place] [address] Abstract, Provider Social History Tobacco Use Types [...] on filedocumented in this encounter Care Teams Privacy Director Relationship Specialty Start Date End Date Boo Hastings MD PCP - General 03/26/07 08/23/15 Boo Hastings MD PCP - General Internal Medicine 08/24/15 11/16/15 Lissy Kumari DO PCP - General Internal Medicine 11/17/15 12/19/16 Community, Pcp PCP - General Internal Medicine 12/20/16 07/01/18 Verna Wright MD PCP - General Internal Medicine 07/02/18 [facility], Pcp PCP - General Internal Medicine 07/15/19 07/20/21 Name, MD Boo PCP - General Internal Medicine 04/06/19 06/02/19 Name, MD Boo PCP - General Internal Medicine 06/03/19 07/14/19 Name, MD Boo PCP - General Internal Medicine 06/03/22 documented as of this encounter
--- OUTSIDE RECORDS SUMMARY | 2025-02-06 09:37 | XMS_ITS | Encounter Summary ---
Author Organization [facility] Address [address] [place] [address] Care Team Providers Care Boat Motor Mechanic Name Role Phone Name, Boo FARLEY Primary [...] Date Type Department Care Team Description 01/18/2013 Behavioral Health Aide Report Medical Records [address] [place] [address] Ada Anderson PA-C Social History Tobacco Use [...] on filedocumented in this encounter Care Teams Boat Motor Mechanic Relationship Specialty Start Date End Date Boo [...]
--- OUTSIDE RECORDS SUMMARY | 2025-02-06 09:37 | XMS_ITS | Encounter Summary ---
Author Organization [facility] Address [address] [place] [address] Care Team Providers Care Method Consultant Name Role Phone Community, Pcp Primary Care Provider Unavailabl e Boo Hastings MD Primary Care Provider Unavailabl e Encounter Details Date Type Department Care Team Description 08/29/2019 Orders Only Medical Records [address] [place] [address] Matt Mendoza MD [address] [place] [address] Social History Tobacco Use Types Packs/Day Years [...] Procedure Name Priority Date/Time Associated Diagnosis Comments OUTSIDE PATHOLOGY Routine 08/27/2019 documented in this encounter Results * OUTSIDE PATHOLOGY (08/27/2019) Matt Mendoza MD OUTSIDE LAB documented in this encounter Visit Diagnoses Not on filedocumented in this encounter Care Teams Method Consultant Relationship Specialty Start Date End Date Community, Pcp PCP - General Internal Medicine 07/15/19 07/20/21 Boo Hastings MD PCP - General Internal Medicine 06/03/22 documented as of this encounter
--- OUTSIDE RECORDS SUMMARY | 2025-02-06 09:37 | XMS_ITS | Encounter Summary ---
Author Organization [facility] Address [address] [place] [address] Care Team Providers Care Policy Intern Name Role Phone Verna Wright MD Primary Care Provider Un available Community, Pcp Primary Care Provider Unavailabl e Name, Boo FARLEY Primary Care Provider Unavailabl e Name, Boo FARLEY Primary Care Provider Unavailabl e Name, Boo FARLEY Primary Care Provider Unavailabl e Reason for Visit * Reason Onset Date Comments Call From Patient Family 01/16/2019 Encounter Details Date Type Department Care Team Description 01/16/2019 Telephone Adult [address] [address] Verna Wright MD Call From Patient Family Social History Tobacco Use Types Packs/Day Years [...] encounter Miscellaneous Notes * Telephone Encounter - Delia Beard M.A. - 01/18/2019 10:06 AM EDT Ophthalmology note requested. * Telephone Encounter - Verna Wright MD - 01/16/2019 11:12 AM EDT Please obtain a copy of last ophthalmology note, thanks * Telephone Encounter - Radha Thibodeaux - 01/16/2019 10:59 AM EDT Patient's daughter calling stated that the patient's eye sight and surgery doctor is Dr. Lorenzo Carias [address] [facility] [address] [place] [address] . This information was requested by Verna Wright. documented in this encounter Plan of Treatment Not on file documented as of this encounter Visit Diagnoses Not on filedocumented in this encounter Care Teams Policy Intern Relationship Specialty Start Date End Date Verna [...]
--- OUTSIDE RECORDS SUMMARY | 2025-02-06 09:37 | XMS_ITS | Encounter Summary ---
Author Organization [facility] Address [address] [place] [address] Care Team Providers Care Calciminer Name Role Phone Community, Pcp Primary Care Provider Unavailabl e Boo Hastings MD Primary Care Provider Unavailabl e Encounter Details Date Type Department Care Team Description 06/12/2020 Orders Only Medical Records [address] [place] [address] Abstract, Provider Social History Tobacco Use Types [...] on filedocumented in this encounter Care Teams Calciminer Relationship Specialty Start Date End Date Community, Pcp PCP - General Internal Medicine 07/15/19 07/20/21 Boo Hastings MD PCP - General Internal Medicine 06/03/22 documented as of this encounter
--- OUTSIDE RECORDS SUMMARY | 2025-02-06 09:37 | XMS_ITS | Encounter Summary ---
Author Organization [facility] Address [address] [place] [address] Care Team Providers Care Hammerer Tab Name Role Phone Community, Pcp Primary Care Provider Unavailabl e Name, Boo FARLEY Primary Care Provider Unavailabl e Name, Boo FARLEY Primary Care Provider Unavailabl e Name, Boo FARLEY Primary Care Provider Unavailabl e Encounter Details Date Type Department Care Team Description 05/07/2019 Release of Information Medical Records [address] [place] [address] Abstract, Provider Social History Tobacco Use Types [...] on filedocumented in this encounter Care Teams Hammerer Tab Relationship Specialty Start Date End Date Community, Pcp PCP - General Internal Medicine 07/15/19 07/20/21 Boo Hastings MD PCP - General Internal Medicine 04/06/19 06/02/19 Boo Hastings MD PCP - General Internal Medicine 06/03/19 07/14/19 Boo Hastings MD PCP - General Internal Medicine 06/03/22 documented as of this encounter
--- OUTSIDE RECORDS SUMMARY | 2025-02-06 09:37 | XMS_ITS | Encounter Summary ---
Author Organization [facility] Address [address] [place] [address] Care Team Providers Care Watch Dial Maker Name Role Phone Name, Boo FARLEY Primary [...] for Visit * Reason Onset Date Comments Faxed Order 08/06/2015 Encounter Details Date Type Department Care Team Description 08/06/2015 Telephone Adult Medicine [address] [address] Name, MD Boo Faxed Order Social History Tobacco Use Types Packs/Day Years [...] encounter Miscellaneous Notes * Telephone Encounter - Rodrigue Gonzalez - 08/06/2015 2:38 PM EDT Faxed orders received documented in this encounter Plan of Treatment Not on file documented as of this encounter Visit Diagnoses Not on filedocumented in this encounter Care Teams Watch Dial Maker Relationship Specialty Start Date End Date Name, [...] PCP - General Internal Medicine 06/03/19 07/14/19 Darling, MD Boo PCP - General Internal Medicine 06/03/22 documented as of this encounter
--- OUTSIDE RECORDS SUMMARY | 2025-02-06 09:37 | XMS_ITS | Encounter Summary ---
Author Organization [facility] Address [address] [place] [address] Care Team Providers Care Hospital Cna Name Role Phone Name, Boo FARLEY Primary [...] Details Date Type Department Care Team Description 01/08/2013 Hospital Medical Records [address] [place] [address] Liliya Parra Social History Tobacco Use Types Packs/Day Years [...] on filedocumented in this encounter Care Teams Hospital Cna Relationship Specialty Start Date End Date Boo [...]
--- OUTSIDE RECORDS SUMMARY | 2025-02-06 09:37 | XMS_ITS | Encounter Summary ---
Author Organization [facility] Address [address] [place] [address] Care Team Providers Care Ux Interaction Designer Name Role Phone Name, Boo FARLEY Primary [...] for Visit * Reason Onset Date Comments VNA Call 02/18/2013 Encounter Details Date Type Department Care Team Description 02/18/2013 Telephone Adult Medicine [address] [address] Name, MD Boo VNA Call Social History Tobacco Use Types Packs/Day Years [...] encounter Miscellaneous Notes * Telephone Encounter - Sary Otriz - 02/18/2013 11:41 AM EDT VNA CALL Which [facility]NA office is calling? [facility] Full name of caller: Naida Is the caller at the patients home?: NO Reason for call: Physical therapy evaluation yesterday and plan is to see her 2 times a week for general conditioning and functional mobility Does caller need an urgent call back? NO just FYI Was CONTACT Telephone # obtained above?: YES documented in this encounter Plan of Treatment Not on file documented as of this encounter Visit Diagnoses Not on filedocumented in this encounter Care Teams Ux Interaction Designer Relationship Specialty Start Date End Date Name, MD Boo PCP - General 03/26/07 08/23/15 Boo Hastings [...]
--- OUTSIDE RECORDS SUMMARY | 2025-02-06 09:37 | XMS_ITS | Encounter Summary ---
Author Organization [facility] Address [address] [place] [address] Care Team Providers Care Purchasing Internship Name Role Phone Darling, Boo FARLEY Primary Care Provider Unavailabl e [...] * Reason Onset Date Comments refill request 09/07/2015 Encounter Details Date Type Department Care Team Description 09/07/2015 Refill Adult Medicine [address] [address] Boo Hastings MD refill request Social History Tobacco Use [...] encounter Miscellaneous Notes * Telephone Encounter - Prachi Chowdhury M.A. - 09/07/2015 2:01 PM EST [phone] (home) [phone] (work) The patient stated she already went to the lab to have her uds done this morning. * Telephone Encounter - Boo Hastings MD - 09/07/2015 10:43 AM EST Please have Prachi call her and give her 24 hours * Telephone Encounter - Ynes Ham M.A. - 09/07/2015 10:34 AM EST This was her second notification already 1st one was in form of a uds request letter that was In egyptian * Telephone Encounter - Boo Hastings MD - 09/07/2015 10:10 AM EST Call her and tell her she has 24 hours. She mostly speaks egyptian * Telephone Encounter - Ynes Ham M.A. - 09/07/2015 9:50 AM EST Pt did not due her uds on 09/01/15 as told at visit with bryn * Telephone Encounter - Renetta Leon - 09/07/2015 8:48 AM EST Patient would like script to be: E-PRESCRIBED/FAXED TO PHARMACY WHEN WAS THE PATIENT'S LAST APPOINTMENT IN ADULT MEDICINE? 09/01/15 WHEN WAS THE LAST TIME THE PATIENT SAW THEIR PCP? 07/17/15 Does patient have an upcoming appointment? No (THE MEDICATION REQUESTED IS ON THE MED LIST ABOVE) All of the medications requested were on the CURRENT MEDS list Did you check the Pharmacy information above?: YES Patient wants: 30 -day supply Is this a mail order prescription request ? NO Patients current insurance carrier is: [place] / [place] / Product Type: MEDICARE [id number] documented in this encounter Plan of Treatment Not on file documented as of this encounter Visit Diagnoses Not on filedocumented in this encounter Care Teams Purchasing Internship Relationship Specialty Start Date End Date Name, [...]
--- OUTSIDE RECORDS SUMMARY | 2025-02-06 09:37 | XMS_ITS | Encounter Summary ---
Author Organization [facility] Address [address] [place] [address] Care Team Providers Care Registered Sales Assistant Name Role Phone Verna Wright MD Primary Care Provider Un available Community, Pcp Primary Care Provider Unavailabl e Name, Boo FARLEY Primary Care Provider Unavailabl e Name, Boo FARLEY Primary Care Provider Unavailabl e Name, Boo FARLEY Primary Care Provider Unavailabl e Reason for Visit * Reason Onset Date Comments refill request 03/25/2019 Encounter Details Date Type Department Care Team Description 03/25/2019 Refill Adult Medicine [address] [address] Verna Wright MD refill request Social History [...] encounter Miscellaneous Notes * Telephone Encounter - Vangie Salgado PA-C - 03/25/2019 11:15 AM EDT Ok to fill. Fabiola Schwartz * Telephone Encounter - Awilda Norton M.A. - 03/25/2019 11:13 AM EDT Lab Results Component Value Date NA 144 07/10/2018 K 4.5 07/10/2018 CO2 26.6 07/10/2018 CL 103 07/10/2018 BUN 12 07/10/2018 CREAT 0.7 07/10/2018 GLU 209 07/29/2016 CA 10.1 07/10/2018 GFR > 60 07/10/2018 Pending ov with Fabiola 03/28/19 * Telephone Encounter - Corrina Danie - 03/25/2019 10:59 AM EDT Patient would like script to be: E-PRESCRIBED/FAXED TO PHARMACY WHEN WAS THE PATIENT'S LAST APPOINTMENT IN ADULT MEDICINE? 01/15/19 WHEN WAS THE LAST TIME THE PATIENT SAW THEIR PCP? Same as above Does patient have an upcoming appointment? Yes 03/28/19 (THE MEDICATION REQUESTED IS ON THE MED [...] / [place] / Product Type: MEDICARE [id number] documented in this encounter Plan of Treatment Not on file documented as of this encounter Visit Diagnoses Not on filedocumented in this encounter Care Teams Registered Sales Assistant Relationship Specialty Start Date End Date Verna Wright MD PCP - General Internal Medicine 07/02/18 [facility] PCP - General Internal Medicine 07/15/19 07/20/21 Boo Hastings MD PCP - General Internal Medicine 04/06/19 06/02/19 NameBoo MD PCP - General Internal Medicine 06/03/19 07/14/19 Boo Hastings MD PCP - General Internal Medicine 06/03/22 documented as of this encounter
--- OUTSIDE RECORDS SUMMARY | 2025-02-06 09:38 | XMS_ITS | Encounter Summary ---
Author Organization [facility] Address [address] [place] [address] Care Team Providers Care Branch Associate Teller Name Role Phone Lissy Kumari DO Primary Care Pro vider Unavailable Community, Pcp Primary Care Provider Unavailabl e Verna Wright MD Primary Care Provider Un available Community, Pcp Primary Care Provider Unavailabl e Name, Boo FARLEY Primary Care Provider Unavailabl e Name, Boo FARLEY Primary Care Provider Unavailabl e Name, Boo FARLEY Primary Care Provider Unavailabl e Reason for Visit * Reason Onset Date Comments medication problems 12/28/2015 Encounter Details Date Type Department Care Team Description 12/28/2015 Telephone Adult Medicine [address] [address] Lissy Kumari DO medication problems Social History Tobacco Use Types Packs/Day Years [...] encounter Miscellaneous Notes * Telephone Encounter - Ann Eller M.A. - 12/28/2015 2:23 PM EST Dx code:COPD J44.9 Past Rx tried and failed: Medication:advair 04/20/2016 Medication:symbicort Date:04/20/2012 Other pertinent information:atrovent or Incruse Elllipta Thank you Please reply back to p [phone] prior authorization billy Eller C.M.A. [facility] Prior Authorizations Ext: [id number] * Telephone Encounter - Lissy Orozco DO - 12/28/2015 10:43 AM EST P/a pls * Telephone Encounter - Gabi Holley M.A. - 12/28/2015 10:35 AM EST [facility] Sp[facility] without a p/a. Do you want to do p/a or change to another medication? * Telephone Encounter - Yelena Young - 12/28/2015 9:47 AM EST What is the name of the medication patient is having a problem with?: tiotropium (SPIRIVA HANDIHALER) 18 MCG inhalation capsule What is the problem?: Patient states that [employer] will not pay for this medication, patient sounded very unsure. States we need to call them ([phone]). Please call patient with questions Is the patient calling about the problem? YES If the patient is not the caller who is? N/a Is this a NEW medication?: NO How long has the patient been taking this medication? unknown Who prescribed this medication for the patient? Lissy Roca Who is patients PCP?: Lissy Roca [place] / [place] / Product Type: MEDICARE [id number] documented in this encounter Plan of Treatment Not on file documented as of this encounter Visit Diagnoses Not on filedocumented in this encounter Care Teams Branch Associate Teller Relationship Specialty Start Date End Date Lissy Kumari DO PCP - General Internal [...]
--- OUTSIDE RECORDS SUMMARY | 2025-02-06 09:38 | XMS_ITS | Encounter Summary ---
Author Organization [facility] Address [address] [place] [address] Care Team Providers Care Direct Care Worker Name Role Phone Name, Boo FARLEY Primary [...] Details Date Type Department Care Team Description 10/25/2010 Home Health Certification Medical Records [address] [place] [address] Abstract, Provider Social History Tobacco Use Types Packs/Day Years Used Date Smoking Tobacco: Former Cigarettes 0.5 Q uit: 07/21/2010 Alcohol Use Standard Drinks/Week Comments Not Asked 0 (1 standard drink = 0.6 oz pur e alcohol) Sex Assigned at Date Recorded Not on file Job Start Date Occupation Industry Not on file Not on file Not on file documented as of this encounter Plan of Treatment Not on file documented as of this encounter Visit Diagnoses Not on filedocumented in this encounter Care Teams Direct Care Worker Relationship Specialty Start Date End Date Boo [...]
--- OUTSIDE RECORDS SUMMARY | 2025-02-06 09:38 | XMS_ITS | Encounter Summary ---
Author Organization [employer] Address [address] [facility] 7t [place] [address] Care Team Providers Care Bone Cooking Operator Name Role Phone Name, Boo FARLEY Primary Care Provider [phone] Ira Orozco PharmD Unavailable [phone] Reason for Visit * Reason Comments Med Refill Encounter Details Date Type Department Care Team (Late st Contact Info) Description 02/11/2023 Refill [facility] [address] [place], [place] [phone] Name, MD Boo [address] [place], [place] [phone] Migraine without status migrainosus, not intractable, unspecified migraine type Social History Tobacco Use Types Packs/Day Years Used Date Smoking Tobacco: Former Cigarettes Q uit: 2007 Smokeless Tobacco: Never Alcohol Use Standard Drinks/Week Comments Never 0 (1 standard drink = 0.6 oz pur e alcohol) Depression Answer Date Recorded Patient Health Questionnaire-9 Score 6 10/25/2022 Depression Answer Date Recorded Patient Health Questionnaire-2 Score 0 10/25/2022 Comments Unknown Sex and Gender Information Value Date Recorded Sex Assigned at Female 09/05/2022 10:16 AM EDT Legal Sex Female 10:16 AM EDT Gender Identity Female 09/05/2022 10:16 AM EDT Sexual Orientation Straight 09/05/2022 10 :16 AM EDT COVID-19 Exposure Response Date Recorded In the last 10 days, have yo u been in contact with someone who was confirmed or suspected to have Coronavirus/COVID-19? No / Unsure 02/13/2023 8:23 AM EDT documented as of this encounter Plan of Treatment Upcoming Encounters Date Type Department Care Team (Late st Contact Info) Description 03/21/2025 11:00 AM EDT Medication Management [facility] [address] [place] [address] Ira Orozco PharmD [address] [place] [address] 04/21/2025 10:30 AM EDT Clinical Support [facility] [address] [place] [address] Ame Love, GEM 05/02/2025 10:00 AM EDT Office Visit [facility] [address] [place] [address] Katlyn Vasquez, OD [address] [place] [address] 05/16/2025 10:00 AM EDT Office Visit [facility] [address] [place] [address] NameBoo MD [address] [place] [address] documented as of this encounter Visit Diagnoses Diagnosis Migraine without status migrainosus, not intractable, unspecified migraine type documented in this encounter Additional Health Concerns Assessment Noted Time PHQ-9 Depression Total Score: 6 10/25/20 22 4:10 PM EST documented as of this encounter Care Teams Bone Cooking Operator Relationship Specialty Start Date End Date Boo Hastings MD [address] [place] [address] PCP - General Family Medicine 04/26/19 Iar Orozco PharmD [address] [place] [address] Pharmacist Internal Medicine 02/03/25 Janessa Fraga 11/23/24 documented as of this encounter
--- OUTSIDE RECORDS SUMMARY | 2025-02-06 09:38 | XMS_ITS | Encounter Summary ---
Author Organization [facility] Address [address] [place] [address] Care Team Providers Care Steam Locomotive Firer/Fireman Name Role Phone Name, Boo FARLEY Primary [...] * Reason Onset Date Comments Faxed Order 03/07/2013 vna Encounter Details Date Type Department Care Team Description 03/07/2013 Telephone Adult Medicine [address] [address] Name, MD Boo Faxed Order (vna) Social History Tobacco Use Types Packs/Day Years [...] encounter Miscellaneous Notes * Telephone Encounter - Katie Chahal - 03/07/2013 4:52 PM EDT Received faxed order for this patient for a plan of care to be signed and faxed back to [phone] documented in this encounter Plan of Treatment Not on file documented as of this encounter Visit Diagnoses Not on filedocumented in this encounter Care Teams Steam Locomotive Firer/Fireman Relationship Specialty Start Date End Date Name, [...]
--- OUTSIDE RECORDS SUMMARY | 2025-02-06 09:38 | XMS_ITS | Encounter Summary ---
Author Organization [employer] Address [address] [place] [address] 7t [place] [address] Care Team Providers Care Trailer Rental Clerk Name Role Phone Name, Boo FARLEY Primary Care Provider [phone] Ira Orozco PharmD Unavailable [phone] Reason for Visit * Reason Comments Med Refill Encounter Details Date Type Department Care Team (Late st Contact Info) Description 04/21/2023 Refill [facility] [address] [place] [phone] Nazia Curiel FNP [address] [place] [address] Dept [place] [address] Acute pain of right shoulder Social History Tobacco Use Types Packs/Day Years Used Date Smoking Tobacco: Former Cigarettes Q uit: 2008 Passive Smoke Exposure: Past Smokeless Tobacco: Never Alcohol Use Standard Drinks/Week [...] suspected to have Coronavirus/COVID-19? No / Unsure 04/17/2023 9:18 AM EDT documented as of this encounter Plan of Treatment Upcoming Encounters Date Type Department Care Team (Late st Contact Info) Description 03/21/2025 11:00 AM EDT Medication Management [facility] [address] [place] [address] Ira Orozco PharmD [address] [place], [place] 04/21/2025 10:30 AM EDT Clinical Support [facility] [address] [place] [address] Ame Love, GEM 05/02/2025 10:00 AM EDT Office Visit [facility] [address] [place] [address] Katlyn Vasquez, OD [address] [place] [address] 05/16/2025 10:00 AM EDT Office Visit [facility] [address] [place] [address] Name, MD Boo [address] [place], [place] documented as of this encounter Visit Diagnoses Diagnosis Acute pain of right shoulder documented in this encounter Additional Health Concerns Assessment Noted Time PHQ-9 Depression Total Score: 6 10/25/20 22 4:10 PM EST documented as of this encounter Care Teams Trailer Rental Clerk Relationship Specialty Start Date End Date NameBoo MD [address] [place] [address] PCP - General Family Medicine 04/26/19 Ira Orozco PharmD [address] [place] [address] Pharmacist Internal Medicine 02/03/25 Janessa Fraga 11/23/24 documented as of this encounter
--- OUTSIDE RECORDS SUMMARY | 2025-02-06 09:38 | XMS_ITS | Encounter Summary ---
Author Organization [facility] Address [address] [place] [address] Care Team Providers Care Shoe Folder Name Role Phone Name, Boo FARLEY Primary [...] Details Date Type Department Care Team Description 10/08/2010 Rental Car Porter Report Medical Records [address] [place] [address] Florian Oconnor Social History Tobacco Use Types Packs/Day Years [...] on filedocumented in this encounter Care Teams Shoe Folder Relationship Specialty Start Date End Date Boo Hastings MD PCP - General 03/26/07 08/23/15 Boo Hastings MD PCP - General Internal Medicine 08/24/15 11/16/15 Lissy Kumari DO PCP - General Internal Medicine 11/17/15 12/19/16 Community, Pcp PCP - General Internal Medicine 12/20/16 07/01/18 Verna Wright MD PCP - General Internal Medicine 07/02/18 [facility], Pcp PCP - General Internal Medicine 07/15/19 07/20/21 Name, MD Boo PCP - General Internal Medicine 04/06/19 06/02/19 Name, MD Boo PCP - General Internal Medicine 06/03/19 07/14/19 Name, MD Boo PCP - General Internal Medicine 06/03/22 documented as of this encounter
--- OUTSIDE RECORDS SUMMARY | 2025-02-06 09:38 | XMS_ITS | Encounter Summary ---
Author Organization [employer] Address [address] [facility] 7t [place] [address] Care Team Providers Care Auto Garage Mechanic Name Role Phone Name, Boo FARLEY Primary Care Provider [phone] Ira Orozco PharmD Unavailable [phone] Encounter Details Date Type Department Care Team ([facility] Contact Info) Description 12/29/2022 Telephone [facility] [address] [place], [place] [phone] Name, MD Boo [address] [place] [address] Social History Tobacco Use Types Packs/Day Years Used Date Smoking Tobacco: Former Cigarettes Q uit: 2008 Smokeless Tobacco: Never Alcohol Use Standard Drinks/Week [...] suspected to have Coronavirus/COVID-19? No / Unsure 12/28/2022 12:14 PM EST documented as of this encounter Plan of Treatment Upcoming Encounters Date Type Department Care Team ([facility] Contact Info) Description 03/21/2025 11:00 AM EDT Medication Management [facility] [address] [place] [address] Ira [facility]rozco PharmD [address] [facility] [place] [address] 04/21/2025 10:30 AM EDT Clinical Support [facility] [address] [place] [address] Ame Love, RN 05/02/2025 10:00 AM EDT Office Visit [facility] OPTOMET[facility] [address] [place] [address] Pedro, Katlyn, OD [address] [place] [address] 05/16/2025 10:00 AM EDT Office Visit [facility] [place] [address] Name, [place] [address] documented as of this encounter Visit Diagnoses Not on filedocumented in this encounter Additional Health Concerns Assessment Noted Time PHQ-9 Depression Total Score: 6 10/25/20 22 4:10 PM EST documented as of this encounter Care Teams Auto Garage Mechanic Relationship Specialty Start Date End [place] [address] PCP - General Family Medicine 04/26/19 Ira Orozco, Nelida [facility] [place] [place] [address] Pharmacist Internal Medicine 02/03/25 Janessa Fraga 11/23/24 documented as of this encounter
--- OUTSIDE RECORDS SUMMARY | 2025-02-06 09:38 | XMS_ITS | Encounter Summary ---
Author Organization [employer] Address 75 [facility] 7t [place] [address] Care Team Providers Care Metal Hanging Supervisor Name Role Phone Name, Boo FARLEY Primary Care Provider [phone] Ira Orozco PharmD Unavailable [phone] Encounter Details Date Type Department Care Team ([facility] Contact Info) Description 02/13/2023 Orders Only [facility] [address] [place] [address] Miracle Prescott LPN Social History Tobacco Use Types Packs/Day Years [...] suspected to have Coronavirus/COVID-19? No / Unsure 02/15/2023 3:40 PM EDT documented as of this encounter Plan of Treatment Upcoming Encounters Date Type Department Care Team ([facility] Contact Info) Description 03/21/2025 11:00 AM EDT Medication Management [facility] [address] [place] [phone] Ira Orozco PharmD 230 [place] [address] 04/21/2025 10:30 AM EDT Clinical Support [facility] 230 [place] [address] Ame Love, RN 05/02/2025 10:00 AM EDT Office Visit [facility] [address] [place] [address] PedroKatlyn santos, OD 230 [place] [address] 05/16/2025 10:00 AM EDT Office Visit [facility] 230 [place] [address] Name, MD Boo 230 [place] [address] documented as of this encounter Visit Diagnoses Not on filedocumented in this encounter Additional Health Concerns Assessment Noted Time PHQ-9 Depression Total Score: 6 10/25/20 22 4:10 PM EST documented as of this encounter Care Teams Metal Hanging Supervisor Relationship Specialty Start Date End Date NameBoo MD [address] [place] [address] PCP - General Family Medicine 04/26/19 Ira Orozco, PharmD [address] [place] [address] Pharmacist Internal Medicine 02/03/25 Janessa Fraga 11/23/24 documented as of this encounter
--- OUTSIDE RECORDS SUMMARY | 2025-02-06 09:38 | XMS_ITS | Encounter Summary ---
Author Organization [facility] Address [address] [place] [address] Care Team Providers Care Attractions Associate Name Role Phone Name, Boo FARLEY Primary [...] Details Date Type Department Care Team Description 06/10/2010 Eye Rivet Driver Report Medical Records [address] [place] [address] Lorenzo Carias MD Social History Tobacco Use Types Packs/Day Years Used Date Smoking Tobacco: Every Day Cigarettes 0.5 Alcohol Use Standard Drinks/Week Comments Not Asked [...] on filedocumented in this encounter Care Teams Attractions Associate Relationship Specialty Start Date End Date Boo Hastings MD PCP - General 03/26/07 08/23/15 Boo Hastings MD PCP - General Internal Medicine 08/24/15 11/16/15 Lissy Kumari DO PCP - General Internal Medicine 11/17/15 12/19/16 [facility], Pcp PCP - General Internal Medicine 12/20/16 07/01/18 Verna Wright MD PCP - General Internal Medicine 07/02/18 [facility], Pcp PCP - General Internal Medicine 07/15/19 07/20/21 Name, MD Boo PCP - General Internal Medicine 04/06/19 06/02/19 NameBoo MD PCP - General Internal Medicine 06/03/19 07/14/19 Name, MD Boo PCP - General Internal Medicine 06/03/22 documented as of this encounter
--- OUTSIDE RECORDS SUMMARY | 2025-02-06 09:38 | XMS_ITS | Encounter Summary ---
Author Organization [employer] Address 75 [facility] 7t [place] [address] Care Team Providers Care Telecasting Technician Name Role Phone Name, Boo FARLEY Primary Care Provider [phone] Ira Orozco PharmD Unavailable [phone] Reason for Visit * Reason Comments Med Refill Encounter Details Date Type Department Care Team ([facility] Contact Info) Description 06/19/2023 Refill [facility] [address] [place] [address] [phone] Name, MD Boo [address] [place] [address] [phone] Moderate persistent asthma without complication; Chronic pain syndrome Social History Tobacco Use Types Packs/Day Years [...] Upcoming Encounters Date Type Department Care Team ([facility] Contact Info) Description 03/21/2025 11:00 AM EDT Medication Management [facility] [address] [place] [address] [phone] Ira Orozco PharmD 230 [place], [place] 04/21/2025 10:30 AM EDT Clinical Support [facility] 230 [place] [address] Ame Love, RN 05/02/2025 10:00 AM EDT Office Visit [facility] [address] [place] [address] Katlyn Vasquez, OD 230 [place], [place] 05/16/2025 10:00 AM EDT Office Visit [facility] 230 [place] [address] NameBoo MD 230 [place], [place] documented as of this encounter Visit Diagnoses Diagnosis Moderate persistent asthma without complication Chronic pain syndrome documented in this encounter Additional Health Concerns Assessment Noted Time PHQ-9 Depression Total Score: 6 10/25/20 22 4:10 PM EST documented as of this encounter Care Teams Telecasting Technician Relationship Specialty Start Date End Date NameBoo MD [address] [place] [address] PCP - General Family Medicine 04/26/19 Ira Orozco, LesleyD [address] [place] [address] Pharmacist Internal Medicine 02/03/25 Janessa Fraga 11/23/24 documented as of this encounter
--- OUTSIDE RECORDS SUMMARY | 2025-02-06 09:38 | XMS_ITS | Encounter Summary ---
Author Organization [employer] Address 75 [facility] 7t [place] [address] Care Team Providers Care Barrel Tester Name Role Phone Name, Boo FARLEY Primary Care Provider [phone] Ira Orozco PharmD Unavailable [phone] Reason for Visit * Reason Comments Med Refill Encounter Details Date Type Department Care Team ([facility] st Contact Info) Description 04/21/2023 Refill [facility] 230 [place], [place] [phone] Name, MD Boo 230 [place], [place] [phone] Moderate persistent asthma without complication Social History Tobacco Use Types Packs/Day Years [...] Description 03/21/2025 11:00 AM EDT Medication Management [facility] [address] [place] [phone] Ira Orozco PharmD 230 [place] [address] 04/21/2025 10:30 AM EDT Clinical Support [facility] [address] [place] [address] Ame Love, RN 05/02/2025 10:00 AM EDT Office Visit [facility] OPTOMETRY [address] [place] [address] Katlyn Vasquez, OD [address] [place] [address] 05/16/2025 10:00 AM EDT Office Visit [facility] [address] [place] [address] Name, MD Boo [address] [place] [address] documented as of this encounter Visit Diagnoses Diagnosis Moderate persistent asthma without complication documented in this encounter Additional Health Concerns Assessment Noted Time PHQ-9 Depression Total Score: 6 10/25/20 22 4:10 PM EST documented as of this encounter Care Teams Barrel Tester Relationship Specialty Start Date End Date NameBoo MD [address] [place] [address] PCP - General Family Medicine 04/26/19 Ira Orozco PharmD [address] [place] [address] Pharmacist Internal Medicine 02/03/25 Janessa Fraga 11/23/24 documented as of this encounter
--- OUTSIDE RECORDS SUMMARY | 2025-02-06 09:38 | XMS_ITS | Encounter Summary ---
Author Organization [employer] Address 75 [facility] 7t [place] [address] Care Team Providers Care Ambulance Dispatcher Name Role Phone Name, Boo FARLEY Primary Care Provider [phone] Ira Orozco PharmD Unavailable [phone] Reason for Visit * Reason Comments Med Refill Encounter Details Date Type Department Care Team ([facility] st Contact Info) Description 05/01/2023 Refill [facility] 230 [place], [place] [phone] Name, MD Boo 230 [place], [place] [phone] Moderate persistent asthma without complication Social History [...] Description 03/21/2025 11:00 AM EDT Medication Management [facility] [address] [place] [phone] Ira Orozco PharmD 230 [place] [address] 04/21/2025 10:30 AM EDT Clinical Support [facility] 230 [place] [address] Ame Love, RN 05/02/2025 10:00 AM EDT Office Visit [facility] OPT[facility]ET[facility] [address] [place] [address] Katlyn Vasquez, OD 230 [place] [address] 05/16/2025 10:00 AM EDT Office Visit [facility] 230 [place] [address] Name, MD Boo [address] [place] [address] documented as of this encounter Visit Diagnoses Diagnosis Moderate persistent asthma without complication documented in this encounter Additional Health Concerns Assessment Noted Time PHQ-9 Depression Total Score: 6 10/25/20 22 4:10 PM EST documented as of this encounter Care Teams Ambulance Dispatcher Relationship Specialty Start Date End Date NameBoo MD [address] [place] [address] PCP - General Family Medicine 04/26/19 Ira Orozco PharmD [address] [place] [address] Pharmacist Internal Medicine 02/03/25 Janessa Fraga 11/23/24 documented as of this encounter
--- OUTSIDE RECORDS SUMMARY | 2025-02-06 09:38 | XMS_ITS | Encounter Summary ---
Author Organization [employer] Address [address] [place] [address] 7t [place] [address] Care Team Providers Care Steam Box Tender Name Role Phone Name, Boo FARLEY Primary Care Provider [phone] Ira Orozco PharmD Unavailable [phone] Reason for Visit * Reason Comments Med Refill Encounter Details Date Type Department Care Team (Late st Contact Info) Description 04/17/2023 Refill [facility] [address] [place] [address] [phone] Nazia Curiel FNP [address] [place] [address] Dept [place] [address] Acute pain of right shoulder Social History [...] Description 03/21/2025 11:00 AM EDT Medication Management [facility] [address] [place] [address] Ira Orozco PharmD 230 [place], [place] 04/21/2025 10:30 AM EDT Clinical Support [facility] 230 [place] [address] Ame Love, GEM 05/02/2025 10:00 AM EDT Office Visit [facility] [address] [place] [address] Katlyn Vasquez, OD 230 [place] [address] 05/16/2025 10:00 AM EDT Office Visit [facility] [address] [place] [address] Name, MD Boo [address] [place], [place] documented as of this encounter Visit Diagnoses Diagnosis Acute pain of right shoulder documented in this encounter Additional Health Concerns Assessment Noted Time PHQ-9 Depression Total Score: 6 10/25/20 22 4:10 PM EST documented as of this encounter Care Teams Steam Box Tender Relationship Specialty Start Date End Date NameBoo MD [address] [place] [address] PCP - General Family Medicine 04/26/19 Ira Orozco PharmD [address] [place] [address] Pharmacist Internal Medicine 02/03/25 Janessa Fraga 11/23/24 documented as of this encounter
--- OUTSIDE RECORDS SUMMARY | 2025-02-06 09:38 | XMS_ITS | Encounter Summary ---
Author Organization [employer] Address [address] [place] [address] 7t [place] [address] Care Team Providers Care Pipeline Inspector Name Role Phone Name, Boo FARLEY Primary Care Provider [phone] Ira Orozco PharmD Unavailable [phone] Reason for Visit * Reason Comments Med Refill Encounter Details Date Type Department Care Team (Late st Contact Info) Description 05/01/2023 Refill [facility] [address] [place] [address] [phone] Nazia Curiel FNP [address] [place] [address] [place] [address] Acute pain of right shoulder Social History [...] Description 03/21/2025 11:00 AM EDT Medication Management [facility] [address] [place] [address] Ira Orozco PharmD 230 [place], [place] 04/21/2025 10:30 AM EDT Clinical Support [facility] [address] [place] [address] Ame Love, GEM 05/02/2025 10:00 AM EDT Office Visit [facility] [address] [place] [address] Katlyn Vasquez, OD 230 [place] [address] 05/16/2025 10:00 AM EDT Office Visit [facility] [address] [place] [address] Name, MD Boo [address] [place], [place] documented as of this encounter Visit Diagnoses Diagnosis Acute pain of right shoulder documented in this encounter Additional Health Concerns Assessment Noted Time PHQ-9 Depression Total Score: 6 10/25/20 22 4:10 PM EST documented as of this encounter Care Teams Pipeline Inspector Relationship Specialty Start Date End Date NameBoo MD [address] [place] [address] PCP - General Family Medicine 04/26/19 Ira Orozco PharmD [address] [place] [address] Pharmacist Internal Medicine 02/03/25 Janessa Fraga 11/23/24 documented as of this encounter
--- OUTSIDE RECORDS SUMMARY | 2025-02-06 09:38 | XMS_ITS | Encounter Summary ---
Author Organization [facility] Address [address] [place] [address] Care Team Providers Care Tank Processor Name Role Phone Name, Boo FARLEY Primary [...] * Reason Onset Date Comments Faxed Order 03/27/2013 Encounter Details Date Type Department Care Team Description 03/27/2013 Telephone Adult Medicine [address] [address] Name, MD Boo Faxed Order Social History [...] Telephone Encounter - Prachi Chowdhury M.A. - 03/28/2013 2:41 PM EDT [facility] form signed & faxed. * Telephone Encounter - Radha Middleton - 03/28/2013 12:00 PM EDT [facility] ASKING FOR SIGNATURE AND DATE FAX TO [phone] * Telephone Encounter - Daisy Rocha - 03/27/2013 4:11 PM EDT Ynes Cramer. Please ignore this! * Telephone Encounter - Daisy Loaizaabdifatah - 03/27/2013 4:09 PM EDT [facility] Hastings's bin. documented in this encounter Plan of Treatment Not on file documented as of this encounter Visit Diagnoses Not on filedocumented in this encounter Care Teams Tank Processor Relationship Specialty Start Date End Date Boo Hastings MD PCP - General 03/26/07 08/23/15 Boo Hastings MD PCP - General Internal Medicine 08/24/15 11/16/15 Lissy Kumari DO PCP - General Internal Medicine 11/17/15 12/19/16 [facility], Pcp PCP - General Internal Medicine 12/20/16 [...]
--- OUTSIDE RECORDS SUMMARY | 2025-02-06 09:38 | XMS_ITS | Encounter Summary ---
Author Organization [facility] Address [address] [place] [address] Care Team Providers Care Nurse Staff Industrial Name Role Phone Name, Boo FARLEY Primary Care Provider Unavaillouann e Lissy Kumari DO Primary Care Pro vider Unavailable [facility], Pcp Primary Care Provider Unavailabl e Verna Wright MD Primary Care Provider Un available [facility], Pcp Primary Care Provider Unavailabl e Name, Boo FARLEY Primary Care Provider Unavailabl e Name, Boo FARLEY Primary Care Provider Unavailabl e Name, Boo FARELY Primary Care Provider Unavailabl e Encounter Details Date Type Department Care Team Description 11/10/2015 Orders Only Gastroenterology - [address] [address] Molina Case MD Social History Tobacco Use Types Packs/Day [...] on filedocumented in this encounter Care Teams Nurse Staff Industrial Relationship Specialty Start Date End Date Name, [...]
--- OUTSIDE RECORDS SUMMARY | 2025-02-06 09:38 | XMS_ITS | Encounter Summary ---
Author Organization [employer] Address 75 [facility] 7t [place] [address] Care Team Providers Care International Sales Manager Name Role Phone Name, Boo FARLEY Primary Care Provider [phone] Ira Orozco PharmD Unavailable [phone] Reason for Visit * Reason Comments Med Refill Encounter Details Date Type Department Care Team (Late st Contact Info) Description 05/10/2023 Refill [facility] 230 [place], [place] [phone] Name, MD Boo 230 [place], [place] [phone] Moderate persistent asthma without complication; Chronic pain [...] Description 03/21/2025 11:00 AM EDT Medication Management [facility] [address] [place] [phone] Ira Orozco PharmD [address] [place], [place] 04/21/2025 10:30 AM EDT Clinical Support [facility] [address] [place] [address] Ame Love, GEM 05/02/2025 10:00 AM EDT Office Visit [facility] [address] [place] [address] Katlyn Vasquez, OD 230 [place] [address] 05/16/2025 10:00 AM EDT Office Visit [facility] [address] [place] [address] NameBoo MD [address] [place] [address] documented as of this encounter Visit Diagnoses Diagnosis Moderate persistent asthma without complication Chronic pain syndrome documented in this encounter Additional Health Concerns Assessment Noted Time PHQ-9 Depression Total Score: 6 10/25/20 22 4:10 PM EST documented as of this encounter Care Teams International Sales Manager Relationship Specialty Start Date End Date NameBoo MD [address] [place] [address] PCP - General Family Medicine 04/26/19 Ira Orozco PharmD [address] [place] [address] Pharmacist Internal Medicine 02/03/25 Janessa Fraga 11/23/24 documented as of this encounter
--- OUTSIDE RECORDS SUMMARY | 2025-02-06 09:38 | XMS_ITS | Encounter Summary ---
Author Organization [facility] Address [address] [place] [address] Care Team Providers Care Computer Service Technician Name Role Phone Name, Boo FARLEY [...] for Visit * Reason Onset Date Comments DME Request 05/23/2013 Encounter Details Date Type Department Care Team Description 05/23/2013 Refill Adult Medicine [address] [address] Name, MD Boo DME Request Social History Tobacco Use Types Packs/Day Years [...] Telephone Encounter - Ynes Ham M.A. - 05/23/2013 2:17 PM EDT form on dr names desk * Telephone Encounter - Violeta Cantu - 05/23/2013 1:56 PM EDT Name of Product: SHOE Specific information about product AETREX SHOE # Needed 1 PAIR Reason/Diagnosis: When completed: Fax to other office/MD at fax # [phone] FRANCISCO J Name of Product: INSERTS Specific information about product PLASTAZOTE # Needed 3 PAIRS Reason/Diagnosis: When completed: Fax to other office/MD at fax # [phone] FRANCISCO J documented in this encounter Plan of Treatment Not on file documented as of this encounter Procedures Procedure Name Priority Date/Time Associated Diagnosis Comments PLASTAZOTE SHOE INSERTS - 3 [place] Routine 05/23/2013 2:08 PM EDT DIABETES MELLITUS TYPE II-UNCOMPL DIABETIC SHOE Routine 05/23/2013 2:08 PM EDT DIABETES MELLITUS TYPE II-UNCOMPL documented in this encounter Visit Diagnoses Diagnosis DIABETES MELLITUS TYPE II-UNCOMPL- Primary Type II or unspecified type diabetes mellitus without mention of complication, not stated as uncontrolled documented in this encounter Care Teams Computer Service Technician Relationship Specialty Start Date End Date Name, MD Boo PCP - General 03/26/07 08/23/15 Boo Hastings MD PCP - General Internal Medicine 08/24/15 11/16/15 Lissy Kumari DO PCP - General Internal Medicine 11/17/15 12/19/16 [facility], Pcp PCP - General Internal Medicine [...]
--- OUTSIDE RECORDS SUMMARY | 2025-02-06 09:38 | XMS_ITS | Encounter Summary ---
Author Organization [facility] Address [address] [place] [address] Care Team Providers Care Woodworker Name Role Phone Name, Boo FARLEY Primary [...] Date Type Department Care Team Description 03/07/2013 Hearing Aid Specialist Report Medical Records [address] [place] [phone] Jose Lea I Social History Tobacco Use Types Packs/Day Years [...] on filedocumented in this encounter Care Teams Woodworker Relationship Specialty Start Date End Date Boo Hastings MD PCP - General 03/26/07 08/23/15 Boo Hastings MD PCP - General Internal Medicine 08/24/15 11/16/15 Lissy Kumari DO PCP - General Internal Medicine 11/17/15 12/19/16 [facility], Pcp PCP - General Internal Medicine 12/20/16 07/01/18 Verna Wright MD PCP - General Internal Medicine 07/02/18 [facility], Pcp PCP - General Internal Medicine 07/15/19 07/20/21 Name, MD Boo PCP - General Internal Medicine 04/06/19 06/02/19 Name, MD Boo PCP - General Internal Medicine 06/03/19 07/14/19 Name, MD Boo PCP - General Internal Medicine 06/03/22 documented as of this encounter
--- OUTSIDE RECORDS SUMMARY | 2025-02-06 09:38 | XMS_ITS | Encounter Summary ---
Author Organization [facility] Address [address] [place] [address] Care Team Providers Care Customer Response Representative Name Role Phone Name, Boo FARLEY Primary [...] for Visit * Reason Onset Date Comments REFERRAL 03/14/2013 Encounter Details Date Type Department Care Team Description 03/14/2013 Telephone Nephrology - [address] [phone] George Cardoza MD REFERRAL Social History Tobacco Use Types Packs/Day Years [...] encounter Miscellaneous Notes * Telephone Encounter - Awilda Leiva - 03/14/2013 1:06 PM EDT Patients daughter called to cancel appt for: Nephrology. Reason for referral: recurrent ARF Priority: 2-3 weeks FYI Patient had an appt. Booked 03/15/2013 at 8:[address] Cardoza. Patients daughter states patient has an appt. Outside of [facility] and wanted this appointment cancelled. Thank You documented in this encounter Plan of Treatment Not on file documented as of this encounter Visit Diagnoses Not on filedocumented in this encounter Care Teams Customer Response Representative Relationship Specialty Start Date End Date Name, MD Boo PCP - General 03/26/07 08/23/15 NameBoo MD PCP - General Internal Medicine 08/24/15 [...]
--- OUTSIDE RECORDS SUMMARY | 2025-02-06 09:38 | XMS_ITS | Encounter Summary ---
Author Organization [facility] Address 75 [facility] 7t [place] [address] Care Team Providers Care Dairy Consultant Name Role Phone Name, Boo FARLEY Primary Care Provider [phone] Ira Orozco PharmD Unavailable [phone] Reason for Visit * Reason Comments Med Refill Encounter Details Date Type Department Care Team (Late Contact Info) Description 02/16/2023 Refill [facility] [address] [place], [place] [phone] Name, MD Boo [address] [place] [address] Social History Tobacco Use Types Packs/Day Years [...] Encounters Date Type Department Care Team (Late Contact Info) Description 03/21/2025 11:00 AM EDT Medication Management [facility] [address] [facility] [place] [address] Ira Orozco PharmD [address] [facility] [place] [address] 04/21/2025 10:30 AM EDT Clinical Support [facility] [address] [facility] [place] [address] Ame Love, RN 05/02/2025 10:00 AM EDT Office Visit [facility] OPT[facility]ET[facility] [address] [place] [address] Katlyn Vasquez, OD [address] [facility] [place] [address] 05/16/2025 10:00 AM EDT Office Visit [facility] [address] [facility] [place] [address] Name, MD Boo [facility] [place] [address] documented as of this encounter Visit Diagnoses Not on filedocumented in this encounter Additional Health Concerns Assessment Noted Time PHQ-9 Depression Total Score: 6 10/25/20 22 4:10 PM EST documented as of this encounter Care Teams Dairy Consultant Relationship Specialty Start Date End Date Name, MD Boo [facility] [place] [address] PCP - General Family Medicine 04/26/19 Ira Orozco PharmD [facility] [place] [address] Pharmacist Internal Medicine 02/03/25 Janessa Fraga 11/23/24 documented as of this encounter
--- OUTSIDE RECORDS SUMMARY | 2025-02-06 09:38 | XMS_ITS | Encounter Summary ---
Author Organization [employer] Address [address] [facility] 7t [place] [address] Care Team Providers Care Volunteer Patient Representative Name Role Phone Name, Boo FARLEY Primary Care Provider [phone] Ira Orozco PharmD Unavailable [phone] Reason for Visit * Reason Comments Med Refill Encounter Details Date Type Department Care Team ([facility] st Contact Info) Description 05/17/2023 Refill [facility] [address] [place], [place] [phone] Name, MD Boo 230 [place] [address] Chronic pain syndrome Social History Tobacco Use [...] Description 03/21/2025 11:00 AM EDT Medication Management [facility] [address] [place] [phone] Ira Orozco PharmD 230 [place] [address] 04/21/2025 10:30 AM EDT Clinical Support [facility] [address] [place], [place] [phone] Ame Love, GEM 05/02/2025 10:00 AM EDT Office Visit [facility] [address] [place] [address] Katlyn Vasquez, OD 230 [place], [place] 05/16/2025 10:00 AM EDT Office Visit [facility] [address] [place] [address] Name, MD Boo [address] [place] [address] documented as of this encounter Visit Diagnoses Diagnosis Chronic pain syndrome documented in this encounter Additional Health Concerns Assessment Noted Time PHQ-9 Depression Total Score: 6 10/25/20 22 4:10 PM EST documented as of this encounter Care Teams Volunteer Patient Representative Relationship Specialty Start Date End Date Boo Hastings MD [address] [place] [address] PCP - General Family Medicine 04/26/19 Ira Orozco PharmD [address] [place] [address] Pharmacist Internal Medicine 02/03/25 Janessa Fraga 11/23/24 documented as of this encounter
--- OUTSIDE RECORDS SUMMARY | 2025-02-06 09:38 | XMS_ITS | Encounter Summary ---
Author Organization [facility] Address 75 [facility] 7t [place] [address] Care Team Providers Care Administrative Court Justice Name Role Phone Name, Boo FARLEY Primary Care Provider Ira Orozco PharmD Unavailable [phone] Reason for Visit * Reason Comments Med Refill Encounter Details Date Type Department Care Team (Late Contact Info) Description 02/22/2023 Refill [facility] [address] [place], [place] [phone] Name, MD Boo 230 [place] [address] Social History Tobacco Use Types Packs/Day Years [...] Description 03/21/2025 11:00 AM EDT Medication Management [facility] [address] [facility] [place] [address] Ira Orozco PharmD [address] [place] [address] 04/21/2025 10:30 AM EDT Clinical Support [facility] [address] [facility] [place] [address] Ame Love, RN 05/02/2025 10:00 AM EDT Office Visit [facility] [address] [place] [address] Katlyn Vasquez, OD [address] [facility] [place] [address] 05/16/2025 10:00 AM EDT Office Visit [facility] [address] [facility] [place] [address] Name, MD Boo [facility] [place] [address] documented as of this encounter Visit Diagnoses Not on filedocumented in this encounter Additional Health Concerns Assessment Noted Time PHQ-9 Depression Total Score: 6 10/25/20 22 4:10 PM EST documented as of this encounter Care Teams Administrative Court Justice Relationship Specialty Start Date End Date Name, MD Boo [facility] [place] [address] PCP - General Family Medicine 04/26/19 Ira Orozco PharmD [facility] [place] [address] Pharmacist Internal Medicine 02/03/25 Janessa Fraga 11/23/24 documented as of this encounter
--- OUTSIDE RECORDS SUMMARY | 2025-02-06 09:38 | XMS_ITS | Encounter Summary ---
Author Organization [facility] Address [address] [place] [address] Care Team Providers Care Line Up Examiner Name Role Phone Name, Boo FARLEY Primary [...] Details Date Type Department Care Team Description 05/31/2010 Information Systems Audit Manager Report Medical Records [address] [place] [address] Social History Tobacco Use Types Packs/Day Years [...] on filedocumented in this encounter Care Teams Line Up Examiner Relationship Specialty Start Date End Date Boo [...]
--- OUTSIDE RECORDS SUMMARY | 2025-02-06 09:38 | XMS_ITS | Encounter Summary ---
Author Organization [facility] Address [address] [place] [address] Care Team Providers Care Jewel Oliving Machine Operator Name Role Phone Lissy Kumari DO Primary [...] Details Date Type Department Care Team Description 12/21/2015 Controlled Substance Contract with [facility] Medical Records [address] [place] [address] Abstract, Provider Social History Tobacco Use Types [...] on filedocumented in this encounter Care Teams Jewel Oliving Machine Operator Relationship Specialty Start Date End Date Lissy [...]
--- OUTSIDE RECORDS SUMMARY | 2025-02-06 09:38 | XMS_ITS | Encounter Summary ---
Author Organization [facility] Address [address] [place] [address] Care Team Providers Care School Commissioner Name Role Phone Name, Boo FARLEY Primary Care Provider Unavailabl e Name, oBo FARLEY Primary Care Provider Unavailabl e Lissy [...] Details Date Type Department Care Team Description 05/27/2013 Blasting Gang Miner Report Medical Records [address] [place] [address] Counts Include [facility] Flor Social History Tobacco Use Types Packs/Day Years [...] on filedocumented in this encounter Care Teams School Commissioner Relationship Specialty Start Date End Date Boo Hastings MD PCP - General 03/26/07 08/23/15 Boo Hastings MD PCP - General Internal Medicine 08/24/15 11/16/15 Lissy Kumari DO PCP - General Internal Medicine 11/17/15 12/19/16 [facility], Pcp PCP - General Internal Medicine 12/20/16 07/01/18 Verna Wright MD PCP - General Internal Medicine 07/02/18 [facility], Pcp PCP - General Internal Medicine 07/15/19 07/20/21 Name, MD Boo PCP - General Internal Medicine 04/06/19 06/02/19 Name, MD Boo PCP - General Internal Medicine 06/03/19 07/14/19 Name, MD Boo PCP - General Internal Medicine 06/03/22 documented as of this encounter
--- OUTSIDE RECORDS SUMMARY | 2025-02-06 09:38 | XMS_ITS | Encounter Summary ---
Author Organization [facility] Address [address] [place] [address] Care Team Providers Care Cephalometric Technician Name Role Phone Boo Hastings MD Primary Care Provider Unavailabl e Lissy Kumari [...] * Reason Onset Date Comments Faxed Order 11/02/2015 Encounter Details Date Type Department Care Team Description 11/02/2015 Telephone Adult [address] [address] Boo Hastings MD Faxed Order Social History Tobacco Use Types [...] encounter Miscellaneous Notes * Telephone Encounter - Danya Murrell - 11/02/2015 3:58 PM EST Physician's interim order for Dr Hastings's signature documented in this encounter Plan of Treatment Not on file documented as of this encounter Visit Diagnoses Not on filedocumented in this encounter Care Teams Cephalometric Technician Relationship Specialty Start Date End Date [...]
--- OUTSIDE RECORDS SUMMARY | 2025-02-06 09:38 | XMS_ITS | Encounter Summary ---
Author Organization [facility] Address [address] [place] [address] Care Team Providers Care Hearing Aid Assembly Supervisor Name Role Phone Lissy Kumari DO Primary [...] * Reason Onset Date Comments Appointment-Internal Referral 11/24/2015 neral Surgery Encounter Details Date Type Department Care Team Description 11/24/2015 Telephone General Surgery [address] [place], [place] [phone] Marybel Ratliff MD [address] [place] [address] Appointment-Internal Referral (General Surgery) Social History Tobacco Use Types Packs/Day Years [...] encounter Miscellaneous Notes * Telephone Encounter - Luisana Cochran - 11/24/2015 8:30 AM EST Patient did not keep their scheduled appointment nor did they respond to an attempt to reschedule the visit in the General Surgery Department regarding: periumbilical hernia and abdominal pain Priority: 1-2 weeks Will take out from the referral report. documented in this encounter Plan of Treatment Not on file documented as of this encounter Visit Diagnoses Not on filedocumented in this encounter Care Teams Hearing Aid Assembly Supervisor Relationship Specialty Start Date End Date Lissy [...]
--- OUTSIDE RECORDS SUMMARY | 2025-02-06 09:38 | XMS_ITS | Encounter Summary ---
Author Organization [facility] Address [address] [facility] 7t [place] [address] Care Team Providers Care Cathode Builder Name Role Phone Name, Boo FARLEY Primary Care Provider [phone] Ira Orozco PharmD Unavailable [phone] Encounter Details Date Type Department Care Team (Late Contact Info) Description 04/18/2023 Abstract [facility] [address] [place], [place] [phone] Name, MD Boo 230 [place] [address] Social History Tobacco Use Types Packs/Day Years [...] Description 03/21/2025 11:00 AM EDT Medication Management [facility] [address] [place] [address] Ira Orozco PharmD 230 [place] [address] 04/21/2025 10:30 AM EDT Clinical Support [facility] [address] [place] [address] Ame Love, GEM 05/02/2025 10:00 AM EDT Office Visit [facility] [address] [place] [address] Katlyn Vasquez, OD 230 [place] [address] 05/16/2025 10:00 AM EDT Office Visit [facility] [address] [place] [address] Name, MD Boo [address] [place] [address] documented as of this encounter Procedures Procedure Name Priority Date/Time Associated Diagnosis Comments COLONOSCOPY Routine 08/02/2022 10:14 AM EDT documented in this encounter Results * Colonoscopy (08/02/2022 10:14 AM EDT) Colonoscopy Normal Normal Narrative Anita Marroquin - 08/02/2022 10:14 AM EDT Recommended 5 year follow up Historical Provider HEALTH MAINTENANCE Edited Result - Final documented in this encounter Visit Diagnoses Not on filedocumented in this encounter Additional Health Concerns Assessment Noted Time PHQ-9 Depression Total Score: 6 10/25/20 22 4:10 PM EST documented as of this encounter Care Teams Cathode Builder Relationship Specialty Start Date End Date Name, [place] [address] PCP - General Family Medicine 04/26/19 Ira Orozco, PharmD 230 [place] [address] Pharmacist Internal Medicine 02/03/25 Janessa Fraga 11/23/24 documented as of this encounter
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
--- OUTSIDE RECORDS SUMMARY | 2025-02-06 09:38 | XMS_ITS | Encounter Summary ---
Author Organization [employer] Address [address] [place] [address] 7t [place] [address] Care Team Providers Care Credentials Specialist Name Role Phone Name, Boo FARLEY Primary Care Provider [phone] Ira Orozco PharmD Unavailable [phone] Reason for Visit * Reason Comments Med Refill Encounter Details Date Type Department Care Team (Late Contact Info) Description 06/07/2023 Refill [facility] [address] [place] [address] [phone] Nazia Curiel FNP [address] [place] [address] [place] [address] Fibromyalgia; Acute pain of right shoulder Social History [...] 11:00 AM EDT Medication Management [facility] [address] [place] [phone] Ira Orozco PharmD [address] [place] [address] 04/21/2025 10:30 AM EDT Clinical Support [facility] [address] [place] [address] Ame Love, RN 05/02/2025 10:00 AM EDT Office Visit [facility] [address] [place] [address] Katlyn Vasquez, OD 230 [place] [address] 05/16/2025 10:00 AM EDT Office Visit [facility] [address] [place] [address] NameBoo MD [address] [place], [place] documented as of this encounter Visit Diagnoses Diagnosis Fibromyalgia Unspecified myalgia and myositis Acute pain of right shoulder documented in this encounter Additional Health Concerns Assessment Noted Time PHQ-9 Depression Total Score: 6 10/25/20 22 4:10 PM EST documented as of this encounter Care Teams Credentials Specialist Relationship Specialty Start Date End Date NameBoo MD [address] [place] [address] PCP - General Family Medicine 04/26/19 Ira Orozco, PharmD [address] [place] [address] Pharmacist Internal Medicine 02/03/25 Janessa Fraga 11/23/24 documented as of this encounter
--- OUTSIDE RECORDS SUMMARY | 2025-02-06 09:39 | XMS_ITS | Encounter Summary ---
Author Organization [employer] Address 75 [facility] 7t [place] [address] Care Team Providers Care Disc Pad Grinder Name Role Phone Name, Boo FARLEY Primary Care Provider [phone] Ira Orozco PharmD Unavailable [phone] Reason for Visit * Reason Onset Date Comments Request For Order(s) 01/03/2024 Encounter Details Date Type Department Care Team ([facility] Contact Info) Description 01/03/2024 Telephone [facility] [address] [place], [place] [phone] Name, MD Boo [address] [place], [place] [phone] Request For Order(s) Social History Tobacco Use Types Packs/Day Years Used Date Smoking Tobacco: Former Passive Smoke Exposure: Past Smokeless Tobacco: Never Alcohol Use Standard Drinks/Week Comments Never 0 (1 standard drink = 0.6 oz pur e alcohol) Depression Answer Date Recorded Patient Health Questionnaire-9 Score 6 10/25/2022 Housing Stability Answer Date Recorded What is your housing situation today? I have baudiliojosiah spence 08/21/[address] you li ve. Do you have problems with any of the following? None of the above 08/21/2023 Food Insecurity Answer Date Recorded Within the past 12 months, y ou worried that your food would run out before you got money to buy more: Never True 08/21/2023 Within the past 12 months,th e food you bought just didn't last and you didn't have enough money to get more: Never True Transportation Answer Date Recorded In the past 12 months, has l ack of transportation kept you from medical appts, meetings, work or from getting things needed for daily living? No 08/21/2023 Utilities Answer Date Recorded In the past 12 months, has t he electric, gas, oil or water company threatened to shut off services in your home? No 08/21/2023 Depression Answer Date Recorded Patient Health Questionnaire-2 Score 0 10/25/2022 Comments No Sex and Gender Information Value Date Recorded Sex Assigned at Female 09/05/2022 10:16 AM EDT Legal Sex Female 10:16 AM EDT Gender Identity Female 09/05/2022 10:16 AM EDT Sexual Orientation Straight 09/05/2022 10 :16 AM EDT documented as of this encounter Miscellaneous Notes * Telephone Encounter - Becca Vance RN - 01/03/2024 10:08 AM EST Pt. Has apt. Today on 2.15 pm, advised to discuss with provider, pt. Verbally agreed and understood. * Telephone Encounter - Heidi Antonio - 01/03/2024 9:47 AM EST Tc from pt requesting to get labs done to check liver. Pt is also requesting a higher dosage for oxyCODONE-acetaminophen (Percocet) 5-325 MG tablet if possible due to pain worsening. Pt was triaged today (01/03). Please contact pt at [phone] documented in this encounter Plan of Treatment Upcoming Encounters Date Type Department Care Team (Late st Contact Info) Description 03/21/2025 11:00 AM EDT Medication Management [facility] [address] [place] [phone] Ira Orozco PharmD [address] [place] [address] 04/21/2025 10:30 AM EDT Clinical Support [facility] [address] [place] [address] Ame Love, RN 05/02/2025 10:00 AM EDT Office Visit [facility] [address] [place] [address] Katlyn Vasquez, OD [address] [place] [address] 05/16/2025 10:00 AM EDT Office Visit [facility] [address] [place] [address] Name, MD Boo [address] [place] [address] documented as of this encounter Goals Goal Patient Goal Type Associated Problems Recent Progress Patient-Stated? Author Blood Pressure < 140/90 Blood Pressure 118/76( 025 1:43 PM EDT) No Moe Johnson documented as of this encounter Visit Diagnoses Not on filedocumented in this encounter Additional Health Concerns Assessment Noted Time PHQ-9 Depression Total Score: 6 10/25/20 22 4:10 PM EST documented as of this encounter Care Teams Disc Pad Grinder Relationship Specialty Start Date End Date Name, MD Boo [address] [place] [address] PCP - General Family Medicine 04/26/19 Ira Orozco PharmD [address] [place] [address] Pharmacist Internal Medicine 02/03/25 Janessa Fraga 11/23/24 documented as of this encounter
--- OUTSIDE RECORDS SUMMARY | 2025-02-06 09:39 | XMS_ITS | Encounter Summary ---
Author Organization [facility] Address [address] [place] [address] Care Team Providers Care Community Coordinator Name Role Phone Name, Boo FARLEY Primary [...] Details Date Type Department Care Team Description 09/26/2013 Business Doc Medical Records [address] [place] [phone] Abstract, Provider Social History Tobacco Use Types [...] on filedocumented in this encounter Care Teams Community Coordinator Relationship Specialty Start Date End Date Boo Hastings MD PCP - General 03/26/07 08/23/15 Boo Hastings MD PCP - General Internal Medicine 08/24/15 11/16/15 Lissy Kumari DO PCP - General Internal Medicine 11/17/15 12/19/16 [facility], Pcp PCP - General Internal Medicine 12/20/16 07/01/18 Verna Wright MD PCP - General Internal Medicine 07/02/18 [facility], Pcp PCP - General Internal Medicine 07/15/19 07/20/21 Name, MD Boo PCP - General Internal Medicine 04/06/19 06/02/19 Name, MD Boo PCP - General Internal Medicine 06/03/19 07/14/19 Name, MD Boo PCP - General Internal Medicine 06/03/22 documented as of this encounter
--- OUTSIDE RECORDS SUMMARY | 2025-02-06 09:39 | XMS_ITS | Encounter Summary ---
Author Organization [facility] Address [address] [place] [address] Care Team Providers Care Recovery Room Rn Name Role Phone Name, Boo FARLEY Primary [...] Details Date Type Department Care Team Description 06/22/2011 Business Doc Medical Records [address] [place] [phone] Abstract, Provider Social History Tobacco Use Types [...] on filedocumented in this encounter Care Teams Recovery Room Rn Relationship Specialty Start Date End Date Boo Hastings MD PCP - General 03/26/07 08/23/15 Boo Hastings MD PCP - General Internal Medicine 08/24/15 11/16/15 Lissy Kumari DO PCP - General Internal Medicine 11/17/15 12/19/16 [facility], Pcp PCP - General Internal Medicine 12/20/16 07/01/18 Verna Wright MD PCP - General Internal Medicine 07/02/18 [facility], Pcp PCP - General Internal Medicine 07/15/19 07/20/21 Name, MD Boo PCP - General Internal Medicine 04/06/19 06/02/19 Name, MD Boo PCP - General Internal Medicine 06/03/19 07/14/19 Name, MD Boo PCP - General Internal Medicine 06/03/22 documented as of this encounter
--- OUTSIDE RECORDS SUMMARY | 2025-02-06 09:39 | XMS_ITS | Encounter Summary ---
Author Organization [employer] Address [address] [facility] 7t [place] [address] Care Team Providers Care Automation Engineer Name Role Phone Name, Boo FARLEY Primary Care Provider [phone] Ira Orozco PharmD Unavailable [phone] Reason for Visit * Reason Onset Date Comments Med Refill 01/19/2024 Encounter Details Date Type Department Care Team (Late st Contact Info) Description 01/19/2024 Telephone [facility] [address] [place], [place] [phone] Name, MD Boo [address] [place], [place] [phone] Med Refill Social History Tobacco Use Types Packs/Day Years Used Date Smoking Tobacco: Former Passive Smoke Exposure: Past Smokeless Tobacco: Never Alcohol Use Standard Drinks/Week Comments Never 0 (1 standard drink = 0.6 oz pur e alcohol) Depression Answer Date Recorded Patient Health Questionnaire-9 Score 6 10/25/2022 Housing Stability Answer Date Recorded What is your housing situation today? I have baudilio spence 08/21/[address] you [...] encounter Miscellaneous Notes * Telephone Encounter - Charity Hardy LPN - 01/19/2024 9:01 AM EDT Medication was sent to [facility] on 01/16/24. * Telephone Encounter - Mike Yang - 01/19/2024 8:52 AM EDT TC from pt requesting medication refill. Medications needing refill : IBU 800 MG tablet To be sent to: [facility] - [place], [place] - [address] documented in this encounter Plan of Treatment Upcoming Encounters Date Type Department Care Team (Late st Contact Info) Description 03/21/2025 11:00 AM EDT Medication Management [facility] 230 [place] [address] Ira Orozco, PharmD 230 [place] [address] 04/21/2025 10:30 AM EDT Clinical Support [facility] 230 [place] [address] Ame Love RN 05/02/2025 10:00 AM EDT Office Visit [facility] [address] [place] [address] Pedro, Katlyn, LESLEY 230 [place] [address] 05/16/2025 10:00 AM EDT Office Visit [facility] [address] [place] [address] Name, MD Boo [address] [place] [address] documented as of this encounter Goals Goal [...] documented as of this encounter Care Teams Automation Engineer Relationship Specialty Start Date End Date Name, MD Boo [address] [place] [address] PCP - General Family Medicine 04/26/19 Ira Orozco PharmD [address] [place] [address] Pharmacist Internal Medicine 02/03/25 Janessa Fraga 11/23/24 documented as of this encounter
--- OUTSIDE RECORDS SUMMARY | 2025-02-06 09:39 | XMS_ITS | Encounter Summary ---
Author Organization [employer] Address [address] [facility] 7t [place] [address] Care Team Providers Care Hospice Entrance Attendant Name Role Phone Name, Boo FARLEY Primary Care Provider [phone] Ira Orozco PharmD Unavailable [phone] Reason for Visit * Reason Onset Date Comments FYI/Letter 10/28/2024 Encounter Details Date Type Department Care Team ([facility] Contact Info) Description 10/28/2024 Telephone [facility] 230 [place], [place] [phone] Name, MD Boo 230 [place] [address] FYI/Letter Social History Tobacco Use Types Packs/Day Years [...] encounter Miscellaneous Notes * Telephone Encounter - Joanne Euceda RN - 11/08/2024 4:00 PM EST Noted. Pt to follow up upon discharge as needed. * Telephone Encounter - Lotus Coker - 11/08/2024 9:17 AM EST Tc from pt daughter Dirk regarding prior message. Spar Finisher informed her of 7-14 business days for letter to be completed. Dirk verbalized understanding and stated she would like to leave a note as a FYI informing PCP pt is currently admitted at [facility] due to mental health If any questions or concerns contact [phone] * Telephone Encounter - Christen Hurtado - 11/04/2024 9:31 AM EST Tc from status of letter that was asked the day of pt appointment , pt was transfer to medical records as pt was transfer back to call center as per letter she's requesting is not available yet and pt is requesting a callback [phone] * Telephone Encounter - Christen Hurtado - 10/28/2024 1:37 PM EST Tc from [facility] informing that pt was seen by pcp and she will like to inform PCP to add in the letter that was ask for pt to add due to medical condition she requires a first floor apartment [phone] documented in this encounter Plan of Treatment Upcoming Encounters Date Type Department Care Team (Late st Contact Info) Description 03/21/2025 11:00 AM EDT Medication Management [address] [address] Ira Orozco, PharmD 230 [place] [address] 04/21/2025 10:30 AM EDT Clinical Support [address] [address] Ame Lvoe, GEM 05/02/2025 10:00 AM EDT Office Visit [facility] [address] [place] [address] Katlyn Vasquez, OD 230 [place] [address] 05/16/2025 10:00 AM EDT Office Visit [address] [address] Name, MD Boo [address] [place] [address] documented as of this encounter Goals Goal Patient Goal Type Associated Problems Recent Progress Patient-Stated? Author Blood Pressure < 140/90 Blood Pressure 118/76( 025 1:43 PM EDT) No Moe Johnson documented as of this encounter Visit Diagnoses Not on filedocumented in this encounter Additional Health Concerns Assessment Noted Time PHQ-9 Depression Total Score: 11 024 11:21 AM EDT documented as of this encounter Care Teams Hospice Entrance Attendant Relationship Specialty Start Date End Date Name, MD Boo [address] [place] [address] PCP - General Family Medicine 04/26/19 Ira Orozco PharmD [address] [place] [address] Pharmacist Internal Medicine 02/03/25 Janessa Fraga 11/23/24 documented as of this encounter
--- OUTSIDE RECORDS SUMMARY | 2025-02-06 09:39 | XMS_ITS | Encounter Summary ---
Author Organization [employer] Address [address] [facility] 7t [place] [address] Care Team Providers Care Loan Operations Manager Name Role Phone Name, Boo FARLEY Primary Care Provider [phone] Ira Orozco PharmD Unavailable [phone] Encounter Details Date Type Department Care Team ([facility] st Contact Info) Description 01/22/2024 Orders Only [facility] [address] [place], [place] [phone] Bel Moreno MD 230 [place], [place] [phone] Social History Tobacco Use Types Packs/Day Years [...] Description 03/21/2025 11:00 AM EDT Medication Management [facility] [address] [place] [address] Ira Orozco, LesleyD 230 [place] [address] 04/21/2025 10:30 AM EDT Clinical Support [facility] [address] [place] [address] Ame Love, GEM 05/02/2025 10:00 AM EDT Office Visit [facility] [address] [place] [address] Katlyn Vasquez, OD 230 [place] [address] 05/16/2025 10:00 AM EDT Office Visit [facility] [address] [place] [address] Name, MD Boo 230 [place] [address] documented as of this encounter Goals Goal [...] documented as of this encounter Care Teams Loan Operations Manager Relationship Specialty Start Date End Date Name, MD Boo 230 [place], [place] [phone] PCP - General Family Medicine 04/26/19 Ira Orozco PharmD 230 [place] [address] Pharmacist Internal Medicine 02/03/25 Janessa Fraga 11/23/24 documented as of this encounter
--- OUTSIDE RECORDS SUMMARY | 2025-02-06 09:39 | XMS_ITS | Encounter Summary ---
Author Organization [facility] Address [address] [place] [address] Care Team Providers Care Information Technology Officer Name Role Phone Name, Boo FARLEY Primary [...] Details Date Type Department Care Team Description 11/26/2010 Family Intervention Specialist Report Medical Records [address] [place] [address] Florian Oconnor Social History Tobacco Use Types [...] on filedocumented in this encounter Care Teams Information Technology Officer Relationship Specialty Start Date End Date Boo Hastings MD PCP - General 03/26/07 08/23/15 Boo Hastings MD PCP - General Internal Medicine 08/24/15 11/16/15 Lissy Kumari DO PCP - General Internal Medicine 11/17/15 12/19/16 [facility], Pcp PCP - General Internal Medicine 12/20/16 07/01/18 Verna Wright MD PCP - General Internal Medicine 07/02/18 [facility], Pcp PCP - General Internal Medicine 07/15/19 07/20/21 Name, MD Boo PCP - General Internal Medicine 04/06/19 06/02/19 Name, MD Boo PCP - General Internal Medicine 06/03/19 07/14/19 Name, MD Boo PCP - General Internal Medicine 06/03/22 documented as of this encounter
--- OUTSIDE RECORDS SUMMARY | 2025-02-06 09:39 | XMS_ITS | Encounter Summary ---
Author Organization [facility] Address [address] [place] [address] Care Team Providers Care Hand Blocker Name Role Phone Lissy Kumari DO Primary [...] Details Date Type Department Care Team Description 12/30/2015 Business Doc Medical Records [address] [place] [address] Abstract, Provider Social History Tobacco Use Types [...] on filedocumented in this encounter Care Teams Hand Blocker Relationship Specialty Start Date End Date Lissy [...]
--- OUTSIDE RECORDS SUMMARY | 2025-02-06 09:39 | XMS_ITS | Encounter Summary ---
Author Organization [facility] Address [address] [place] [address] Care Team Providers Care Railroad Detective Name Role Phone Lissy Kumari DO Primary [...] Details Date Type Department Care Team Description 01/05/2016 Telephone General Surgery [address] [place] [address] Blair Carvalho MD [address] [place] [address] Social History Tobacco Use Types Packs/Day Years [...] on filedocumented in this encounter Care Teams Railroad Detective Relationship Specialty Start Date End Date Lissy [...]
--- OUTSIDE RECORDS SUMMARY | 2025-02-06 09:39 | XMS_ITS | Encounter Summary ---
Author Organization [facility] Address [address] [place] [address] Care Team Providers Care Thoroughbred Horse Farm Manager Name Role Phone Name, Boo FARLEY [...] Unavailabl e Reason for Visit * Reason Comments E-prescribe Rx Request Encounter Details Date Type Department Care Team Description 12/05/2013 Refill Adult Medicine [address] [address] Name, MD Boo E-prescribe Rx Request Social History Tobacco Use Types Packs/Day [...] encounter Miscellaneous Notes * Telephone Encounter - Melanie Herve - 12/05/2013 12:26 PM EST Patient would like script to be: E-PRESCRIBED/FAXED TO PHARMACY WHEN WAS THE PATIENT'S LAST APPOINTMENT IN ADULT MEDICINE? 11/13/13 WHEN WAS THE LAST TIME THE PATIENT SAW THEIR PCP? 10/17/13 Does patient have an upcoming appointment? Yes 01/17/14 (THE MEDICATION REQUESTED IS ON THE MED LIST ABOVE) All of the medications requested were on the CURRENT MEDS list Did you check the Pharmacy information above?: YES Patient wants: 30 -day supply Is this a mail order prescription request ? NO Patients current insurance carrier is: [place] Product Type: MEDICARE [id number] * Telephone Encounter - Radha Middleton - 12/05/2013 12:11 PM EST Patient would like script to be: E-PRESCRIBED/FAXED TO PHARMACY WHEN WAS THE PATIENT'S LAST APPOINTMENT IN ADULT MEDICINE? [id number] WHEN WAS THE LAST TIME THE PATIENT SAW THEIR PCP? [id number] Does patient have an upcoming appointment? Yes [id number] (THE MEDICATION REQUESTED IS ON THE MED LIST ABOVE) All of the medications requested were on the CURRENT MEDS list Did you check the Pharmacy information above?: YES Patient wants: 30 -day supply Is this a mail order prescription request ? NO Patients current insurance carrier is: [place] Product Type: MEDICARE [id number] documented in this encounter Plan of Treatment Not on file documented as of this encounter Visit Diagnoses Not on filedocumented in this encounter Care Teams Thoroughbred Horse Farm Manager Relationship Specialty Start Date End Date [...]
--- OUTSIDE RECORDS SUMMARY | 2025-02-06 09:39 | XMS_ITS | Encounter Summary ---
Author Organization [facility] Address [address] [place] [address] Care Team Providers Care Individual Pension Consultant Name Role Phone Name, Boo FARLEY [...] Details Date Type Department Care Team Description 06/21/2011 Photographic Aide Report Medical Records [address] [place] [address] Lety Pinedo MD Social History Tobacco Use Types Packs/Day [...] on filedocumented in this encounter Care Teams Individual Pension Consultant Relationship Specialty Start Date End Date Boo Hastings MD PCP - General 03/26/07 08/23/15 Boo Hastings MD PCP - General Internal Medicine 08/24/15 11/16/15 Lissy Kumari DO PCP - General Internal Medicine 11/17/15 12/19/16 [facility], Pcp PCP - General Internal Medicine 12/20/16 07/01/18 Verna Wright MD PCP - General Internal Medicine 07/02/18 [facility], Pcp PCP - General Internal Medicine 07/15/19 07/20/21 Name, MD Boo PCP - General Internal Medicine 04/06/19 06/02/19 Name, MD Boo PCP - General Internal Medicine 06/03/19 07/14/19 Name, MD Boo PCP - General Internal Medicine 06/03/22 documented as of this encounter
--- OUTSIDE RECORDS SUMMARY | 2025-02-06 09:39 | XMS_ITS | Encounter Summary ---
Author Organization [employer] Address 75 [facility] 7t [place] [address] Care Team Providers Care Director Ehs Name Role Phone Name, Boo FARLEY Primary Care Provider Ira Orozco PharmD Unavailable [phone] Reason for Visit * Reason Onset Date Comments PT-1 11/24/2023 Encounter Details Date Type Department Care Team ([facility] st Contact Info) Description 11/24/2023 Telephone [facility] [address] [place], [place] [phone] Name, MD Boo 230 [place], [place] [phone] PT-1 Social History Tobacco Use Types Packs/Day Years [...] encounter Miscellaneous Notes * Telephone Encounter - Keke Hargrove - 12/06/2023 3:08 PM EST Patient doesn't qualify for PT1 for primary or secondary insurance. * Telephone Encounter - Mirian Mahmood - 12/06/2023 10:32 AM EST TC from pt daughter requesting to see if PT1 can be requested through pt secondary insurance . Which is [facility] due to [facility] not covering transportation . Please call daughter at [phone] * Telephone Encounter - Pippa Wilson - 11/24/2023 11:57 AM EST We are unable to process PT1 for [facility]. Pt would have to contact insurance to request transportation services. * Telephone Encounter - Andrew Emery - 11/24/2023 11:08 AM EST PT1 needed Date: 12/06/2023 Time 2:45 Visits: 3 Address: [address] [place], [place] Facility: [facility] Wheel Chair: no Loan Workout Officer Needed: no PT1 needed Date: 12/08/2023 Time: 11:00 Visits: 3 Address: [address] [place], [place] Facility: [facility] Wheel Chair: No Loan Workout Officer Needed: No PT1 needed Date: 12/12/2023 Time: 3:45 Visits: 3 Address: [address] [place], [place] Facility: [facility] Wheel Chair: no Loan Workout Officer Needed: no documented in this encounter Plan of Treatment Upcoming Encounters Date Type Department Care Team (Late st Contact Info) Description 03/21/2025 11:00 AM EDT Medication Management [facility] [address] [place] [address] Ira Orozco, PharmD [address] [place] [address] 04/21/2025 10:30 AM EDT Clinical Support [facility] [address] [place] [address] Ame Love, GEM 05/02/2025 10:00 AM EDT Office Visit [facility] [address] [place] [address] PedroKatlyn santos, OD [address] [place] [address] 05/16/2025 10:00 AM EDT Office Visit [facility] [address] [place] [address] Name, MD Boo [address] [place] [address] documented as of this encounter Goals Goal [...] documented as of this encounter Care Teams Director Ehs Relationship Specialty Start Date End Date Name, MD Boo [address] [place] [address] PCP - General Family Medicine 04/26/19 Ira Orozco, LesleyD [address] [place] [address] Pharmacist Internal Medicine 02/03/25 Janessa Fraga 11/23/24 documented as of this encounter
--- OUTSIDE RECORDS SUMMARY | 2025-02-06 09:39 | XMS_ITS | Encounter Summary ---
Author Organization [employer] Address [address] [facility] 7t [place] [address] Care Team Providers Care Enamel Pulverizer Name Role Phone Name, Boo FARLEY Primary Care Provider [phone] Ira Orozco PharmD Unavailable [phone] Reason for Visit * Reason Comments Med Refill Encounter Details Date Type Department Care Team (Late st Contact Info) Description 11/21/2023 Refill [facility] [address] [place], [place] [phone] Penny Kang MD [address] [place], [place] [phone] Lumbar radiculopathy Social History Tobacco Use Types Packs/Day Years [...] Description 03/21/2025 11:00 AM EDT Medication Management [facility] [address] [place] [address] Ira Orozco, PharmD [address] [place] [address] 04/21/2025 10:30 AM EDT Clinical Support [address] [address] Ame Love, GEM 05/02/2025 10:00 AM EDT Office Visit [facility] [address] [place] [address] Pedro, Katlyn, OD [address] [place] [address] 05/16/2025 10:00 AM EDT Office Visit [facility] [address] [place] [address] Name, MD Boo [address] [place] [address] documented as of this encounter Goals Goal Patient Goal Type Associated Problems Recent Progress Patient-Stated? Author Blood Pressure < 140/90 Blood Pressure 118/76( 025 1:43 PM EDT) No Moe Johnson documented as of this encounter Visit Diagnoses Diagnosis Lumbar radiculopathy Thoracic or lumbosacral neuritis or radiculitis, unspecified documented in this encounter Additional Health Concerns Assessment Noted Time PHQ-9 Depression Total Score: 6 10/25/20 22 4:10 PM EST documented as of this encounter Care Teams Enamel Pulverizer Relationship Specialty Start Date End Date Name, MD Boo [address] [place] [address] PCP - General Family Medicine 04/26/19 Ira Orozco PharmD [address] [place] [address] Pharmacist Internal Medicine 02/03/25 Janessa Fraga 11/23/24 documented as of this encounter
--- OUTSIDE RECORDS SUMMARY | 2025-02-06 09:39 | XMS_ITS | Encounter Summary ---
Author Organization [employer] Address [address] [facility] 7t [place] [address] Care Team Providers Care Iv Therapy Nurse Name Role Phone Name, Boo FARLEY Primary Care Provider [phone] Ira Orozco PharmD Unavailable [phone] Reason for Visit * Reason Onset Date Comments Med Refill 10/24/2023 Encounter Details Date Type Department Care Team ([facility] st Contact Info) Description 10/24/2023 Telephone [facility] [address] [place], [place] [phone] Name, MD Boo [address] [place], [place] [phone] Med Refill Social History Tobacco Use Types [...] encounter Miscellaneous Notes * Telephone Encounter - Madhuri Avitia RN - 10/26/2023 11:39 AM EST Med refill for Percocet 5/325mg was sent to [facility] pharmacy on 10/24/23. Per [facility] check 10/26/23, pt filled a 28 day supply on 10/24/23. * Telephone Encounter - Mike Yang - 10/24/2023 8:17 AM EST Tc from pt requesting med refill on oxyCODONE-acetaminophen (Percocet) 5-325 MG tablet Please sent to [facility] - [place], [place] - [address] documented in this encounter Plan of Treatment Upcoming Encounters Date Type Department Care Team (Late st Contact Info) Description 03/21/2025 11:00 AM EDT Medication Management [facility] [address] [place] [phone] Ira Orozco, Nelida [address] [place] [address] 04/21/2025 10:30 AM EDT Clinical Support [facility] [address] [place] [address] KateAme RN 05/02/2025 10:00 AM EDT Office Visit [facility] [address] [place] [address] Katlyn Vasquez, OD [address] [place] [address] 05/16/2025 10:00 AM EDT Office Visit [facility] [address] [place] [address] Name, MD Boo [address] [place] [address] documented as of this encounter Goals Goal [...] documented as of this encounter Care Teams Iv Therapy Nurse Relationship Specialty Start Date End Date Name, MD Boo [address] [place], [place] [phone] PCP - General Family Medicine 04/26/19 Ira Orozco PharmD [address] [place] [address] [phone] Pharmacist Internal Medicine 02/03/25 Janessa Fraga 11/23/24 documented as of this encounter
--- OUTSIDE RECORDS SUMMARY | 2025-02-06 09:39 | XMS_ITS | Encounter Summary ---
Author Organization [facility] Address [address] [place] [address] Care Team Providers Care Jig And Fixture Repairer Name Role Phone Name, Boo FARLEY Primary [...] Details Date Type Department Care Team Description 11/05/2013 Business Doc Medical Records [address] [place] [address] Abstract, Provider Social History Tobacco Use Types [...] on filedocumented in this encounter Care Teams Jig And Fixture Repairer Relationship Specialty Start Date End Date Boo Hastings MD PCP - General 03/26/07 08/23/15 Boo Hastings MD PCP - General Internal Medicine 08/24/15 11/16/15 Lissy Kumari DO PCP - General Internal Medicine 11/17/15 12/19/16 [facility], Pcp PCP - General Internal Medicine 12/20/16 07/01/18 Verna Wright MD PCP - General Internal Medicine 07/02/18 [facility], Pcp PCP - General Internal Medicine 07/15/19 07/20/21 Name, MD Boo PCP - General Internal Medicine 04/06/19 06/02/19 Name, MD Boo PCP - General Internal Medicine 06/03/19 07/14/19 Name, MD Boo PCP - General Internal Medicine 06/03/22 documented as of this encounter
--- OUTSIDE RECORDS SUMMARY | 2025-02-06 09:39 | XMS_ITS | Encounter Summary ---
Author Organization [facility] Address [address] [place] [address] Care Team Providers Care Radio Division Lieutenant Name Role Phone Lissy Kumari DO Primary [...] Details Date Type Department Care Team Description 04/11/2016 Orders Only Adult Medicine [address] [address] Lissy Kumari DO Social History Tobacco Use Types Packs/Day [...] on filedocumented in this encounter Care Teams Radio Division Lieutenant Relationship Specialty Start Date End Date Lissy Kumari DO PCP - General Internal Medicine 11/17/15 12/19/16 [facility], Pcp PCP - General Internal Medicine 12/20/16 07/01/18 Verna Wright MD PCP - General Internal Medicine 07/02/18 [facility], Pcp PCP - General Internal Medicine 07/15/19 07/20/21 Boo Hastings, MD PCP - General Internal Medicine 04/06/19 06/02/19 Boo Hastings MD PCP - General Internal Medicine 06/03/19 07/14/19 Boo Hastings MD PCP - General Internal Medicine 06/03/22 documented as of this encounter
--- OUTSIDE RECORDS SUMMARY | 2025-02-06 09:39 | XMS_ITS | Encounter Summary ---
Author Organization [facility] Address [address] [place] [address] Care Team Providers Care School Psychometrist Name Role Phone Name, Boo FARLEY Primary [...] Details Date Type Department Care Team Description 11/18/2013 Release of Information Medical Records [address] [place] [address] Abstract, Provider Social History Tobacco Use Types [...] filedocumented in this encounter Care Teams School Psychometrist Relationship Specialty Start Date End Date Boo Hastings MD PCP - General 03/26/07 08/23/15 Boo Hastings MD PCP - General Internal Medicine 08/24/15 11/16/15 Lissy Kumari DO PCP - General Internal Medicine 11/17/15 12/19/16 [facility], Pcp PCP - General Internal Medicine 12/20/16 07/01/18 Verna Wright MD PCP - General Internal Medicine 07/02/18 [facility], Pcp PCP - General Internal Medicine 07/15/19 07/20/21 Name, MD Boo PCP - General Internal Medicine 04/06/19 06/02/19 Name, MD Boo PCP - General Internal Medicine 06/03/19 07/14/19 Name, MD Boo PCP - General Internal Medicine 06/03/22 documented as of this encounter
--- OUTSIDE RECORDS SUMMARY | 2025-02-06 09:39 | XMS_ITS | Encounter Summary ---
Author Organization [facility] Address [address] [place] [address] Care Team Providers Care Getter Operator Name Role Phone Lissy Kumari DO [...] Details Date Type Department Care Team Description 05/02/2016 Keg Filler Report Medical Records [address] [place] [address] Florian Oconnor Social History Tobacco Use Types [...] on filedocumented in this encounter Care Teams Getter Operator Relationship Specialty Start Date End Date [...]
--- OUTSIDE RECORDS SUMMARY | 2025-02-06 09:39 | XMS_ITS | Encounter Summary ---
Author Organization [employer] Address 75 [facility] 7t [place] [address] Care Team Providers Care High Risk Case Manager Name Role Phone Name, Boo FARLEY Primary Care Provider Ira Orozco PharmD Unavailable [phone] Reason for Visit * Reason Comments Med Refill Encounter Details Date Type Department Care Team (Late st Contact Info) Description 01/19/2024 Refill [facility] [address] [place], [place] [phone] Name, MD Boo [address] [place] [address] Lumbar radiculopathy; History of total bilateral knee replacement; Acute pain of left knee; Chronic pain syndrome Social History Tobacco Use [...] Description 03/21/2025 11:00 AM EDT Medication Management [facility] [address] [place] [address] Ira Orozco PharmD [address] [place] [address] 04/21/2025 10:30 AM EDT Clinical Support [facility] [address] [place] [address] Ame Love, GEM 05/02/2025 10:00 AM EDT Office Visit [facility] [address] [place] [address] Pedro, Katlyn, OD [address] [place] [address] 05/16/2025 10:00 AM EDT Office Visit [facility] [address] [place] [address] Name, MD Boo [address] [place] [address] documented as of this encounter Goals Goal Patient Goal Type Associated Problems Recent Progress Patient-Stated? Author Blood Pressure < 140/90 Blood Pressure 118/76( 025 1:43 PM EDT) No Moe Johnson documented as of this encounter Visit Diagnoses Diagnosis Lumbar radiculopathy Thoracic or lumbosacral neuritis or radiculitis, unspecified History of total bilateral knee replacement Acute pain of left knee Chronic pain syndrome documented in this encounter Additional Health Concerns Assessment Noted Time PHQ-9 Depression Total Score: 6 10/25/20 22 4:10 PM EST documented as of this encounter Care Teams High Risk Case Manager Relationship Specialty Start Date End Date Name, MD Boo [address] [place] [address] PCP - General Family Medicine 04/26/19 Ira Orozco PharmD [address] [place] [address] Pharmacist Internal Medicine 02/03/25 Janessa Fraga 11/23/24 documented as of this encounter
--- OUTSIDE RECORDS SUMMARY | 2025-02-06 09:39 | XMS_ITS | Encounter Summary ---
Author Organization [facility] Address [address] [place] [address] Care Team Providers Care Automobile Club Information Clerk Name Role Phone Lissy Kumari DO Primary [...] Details Date Type Department Care Team Description 05/18/2016 Hospital Medical Records [address] [place] [address] Marybel Ratliff MD [address] [place] [address] Social History Tobacco Use Types Packs/Day Years [...] on filedocumented in this encounter Care Teams Automobile Club Information Clerk Relationship Specialty Start Date End Date Lissy [...]
--- OUTSIDE RECORDS SUMMARY | 2025-02-06 09:39 | XMS_ITS | Encounter Summary ---
Author Organization [employer] Address 75 [facility] 7t [place] [address] Care Team Providers Care Lead Mobile Developer Name Role Phone Name, Boo FARLEY Primary Care Provider [phone] Ira Orozco PharmD Unavailable [phone] Reason for Visit * Reason Comments Med Refill Encounter Details Date Type Department Care Team (Late st Contact Info) Description 12/21/2023 Refill [facility] [address] [place], [place] [phone] Penny Kang MD [address] [place], [place] [phone] Lumbar radiculopathy Social History Tobacco Use Types [...] Description 03/21/2025 11:00 AM EDT Medication Management [facility] [address] [place] [address] Ira Orozco, PharmD [address] [place] [address] 04/21/2025 10:30 AM EDT Clinical Support [address] [address] Ame Love, GEM 05/02/2025 10:00 AM EDT Office Visit [facility] [address] [place] [address] Pedro, Katlyn, OD [address] [place] [address] 05/16/2025 10:00 AM EDT Office Visit [facility] [address] [place] [phone] Name, MD Boo [address] [place] [address] documented as of this encounter Goals Goal [...] documented as of this encounter Care Teams Lead Mobile Developer Relationship Specialty Start Date End Date Name, MD Boo [address] [place] [address] PCP - General Family Medicine 04/26/19 Ira Orozco PharmD [address] [place] [address] Pharmacist Internal Medicine 02/03/25 Janessa Fraga 11/23/24 documented as of this encounter
--- OUTSIDE RECORDS SUMMARY | 2025-02-06 09:39 | XMS_ITS | Data Portability ---
Author Organization [employer] Address [address] [place] [address] Care Team Providers Care Record Systems Analyst Name Role Phone HIM CCA OTHER Assessment Encounter Date Assessment Date Assessment LastModified by Organization Details LastModified Time 07/04/2024 07/04/2024 I provided real -time medical direction via phone for this encounter and was available for additional phone-based assistance as needed. I have reviewed and agree with the Assessment and Plan as documented by the Rpg Developer. Patient given the opportunity to ask questions. Our service contacted for an assessment of: Back pain As per above, patient questioning whether not she has urinary tract infection. She does have sciatica and is seeing her physician at 10:00 a.m. this morning. She states she has constipation but moved her bowels this morning. She is able to give a sample but states she has hesitancy. She thinks she voids a small amount and does not empty her bladder but she is not sure about this. She denies any dysuria. She does not have frequency or incontinence. She does not have any new neurologic deficits and ambulates at baseline. Per front desk admin on the scene, vital signs are stable and the patient is afebrile and there are no concerning focal neurologic signs or symptoms. UA is negative for infection. Impression: Sciatica with questionable urinary retention and chronic constipation Plan: Follow-up with her surgeon today. Asked her to relay history given to this service. May need a referral to Urology and would benefit from a postvoid bladder scan. Allergies: Reviewed PCP f/u: We discussed the diagnostic uncertainty of home visits and the risk associated with this. In this case, the patient and I felt this to be an acceptable and reasonable amount of risk given the benefit of avoiding an ED visit. We discussed the need to seek care urgently/emerge ntly in the setting of any new or worsening serious symptoms, particularly fever chills [email or web address] Not available 07/04/2024 10:36:26 Plan of Treatment Reminders Order Date Submit Date Provider Last Modified By Organization Details Last Modified Time Details Appointments None recorded. Lab urinalysis , dipstick 2023 024 PED[address] LUIS [facility], [address] [place] [address], [place], [phone], 14:03:50 Referral None recorded. Procedures None recorded. Surgeries None recorded. Imaging None recorded. Medication Orders None recorded. Patient TargetsNo targets recorded. Patient InstructionsNo instructions recorded. Reason for Referral None Reported. Results Created Date Observation Date Name Description Value Unit Range Abnormal Flag Note LastModifiedBy Organization Detail LastModifiedTime Result Notes None recorded. Medical Equipment None Reported. Allergies Allergen ID Allergen Name Allergen Category Reaction Reaction Severity Criticality Documentation Date Start Date Code Code System Note Provider Name and Address Organization Details Recorded Time 6002 aspirin medicatio n Not available Not available Not available 07/03/2024 1191 RxNorm Not Available [employer] - production 03:48:22 6003 Product containin g penicilli n (product) medicatio n Not available Not available Not available 07/03/2024 49146 8001 SNOMED Not Available [employer] - production 03:48:22 6004 atorvasta tin medicatio n Not available Not available Not available 07/03/2024 83755 RxNorm PARRISH MEDRANO MD [address] [place] [address],[address], [place], [phone], [employer] 4 11:01:18 6005 alendrona te sodium medicatio n Not available Not available Not available 07/03/2024 22842 2 RxNorm PARRISH MEDRANO MD [address] [place] [address],[address], [place], [phone], [employer] 11:01:32 Medications Name Sig Start Date Stop Date Status Note LastModified by Organization Details LastModified Time medbox status USE DIRECTED active Not Available Not Available No t Available multivitamin tablet TAKE ONE TABLET EVERY MORNING active Not Available Not Available No t Available albuterol sulfate 2.5 mg/3 mL (0.083 %) solution for nebulization INHALE ONE AMPULE USING A NEBULIZER FOUR TIMES DAILY active Not Available Not Available No t Available azithromycin 250 mg tablet TAKE 2 TABLETS BY MOUTH ON DAY 1, THEN TAKE 1 TABLET DAILY ON DAYS 2-5 active Not Available Not Available No t Available ibuprofen 800 mg tablet TAKE ONE TABLET BY MOUTH EVERY EIGHT HOURS NEEDED FOR PAIN active Not Available Not Available No t Available sumatriptan 100 mg tablet TAKE 1 TABLET BY MOUTH AT ONSET OF MIGRAINE. MAY REPEAT ONCE AFTER 2 HOURS IF NEEDED active Not Available Not Available No t Available prednisone 20 mg tablet TAKE TWO TABLETS ONCE DAILY FOR FIVE DAYS active Not Available Not Available No t Available clonazepam 0.5 mg tablet TAKE ONE TABLET EVERY DAY NEEDED active Not Available Not Available No t Available venlafaxine ER 150 mg capsule,exte nded release 24 hr TAKE ONE CAPSULE EVERY MORNING active Not Available Not Available No t Available amlodipine 5 mg tablet TAKE ONE TABLET EVERY MORNING active Not Available Not Available No t Available amitriptylin e 50 mg tablet TAKE ONE TABLET EVERY NIGHT AT BEDTIME active Not Available Not Available N ot Available lidocaine-pr ilocaine 2.5 %-2.5 % topical cream APPLY TO THE AFFECTED AREA(S) DAILY DIRECTED active Not Available Not Available No t Available oxycodone-ac etaminophen 5 mg-325 mg tablet Take 1 tablet by mouth every 8 hours if needed for severe pain. Please call and schedule MEDICARE SPECIALIST Nurse visit or [facility] visit. Do not start before June 20, 2024. active Not Available Not Available No t Available lidocaine 5 % topical patch APPLY 1 PATCH TO SKIN. LEAVE ON FOR 12 HOURS, THEN OFF FOR 12 HOURS DIRECTED. active Not Available Not Available No t Available docusate sodium 100 mg capsule TAKE ONE CAPSULE AT BEDTIME active Not Available Not Available No t Available omeprazole 20 mg capsule,ivis yed release TAKE ONE CAPSULE EVERY MORNING BEFORE BREAKFAST. DO NOT BREAK, CRUSH, DISSOLVE OR CHEW active Not Available Not Available No t Available montelukast 10 mg tablet TAKE ONE TABLET EVERY EVENING active Not Available Not Available No t Available hydroxyzine HCl 25 mg tablet TAKE ONE TABLET TWICE DAILY NEEDED FOR ANXIETY active Not Available Not Available Not Available codeine 10 mg-guaifenes in 100 mg/5 mL oral liquid TAKE 10 ML BY MOUTH EVERY 4 TO 6 HOURS NEEDED FOR COUGH active Not Available Not Available No t Available zolpidem 5 mg tablet TAKE ONE TABLET AT BEDTIME NEEDED if you awaken in THE NIGHT active Not Available Not Available No t Available levofloxacin 750 mg tablet TAKE ONE TABLET DAILY UNTIL FINISHED active Not Available Not Available No t Available zolpidem 10 mg tablet TAKE ONE TABLET EVERY NIGHT AT BEDTIME active Not Available Not Available N ot Available amoxicillin 500 mg-potassium clavulanate 125 mg tablet TAKE ONE TABLET TWICE DAILY UNTIL FINISHED active Not Available Not Available No t Available Ventolin HFA 90 mcg/actuatio n aerosol inhaler INHALE TWO PUFFS EVERY 4 TO 6 HOURS NEEDED FOR WHEEZING OR SHORTNESS OF BREATH active Not Available Not Available No t Available ezetimibe 10 mg tablet TAKE ONE TABLET EVERY MORNING active Not Available Not Available No t Available cyclobenzapr ine 5 mg tablet TAKE ONE TABLET BY MOUTH THREE TIMES DAILY active Not Available Not Available Not Available topiramate 50 mg tablet TAKE ONE TABLET IN THE MORNING AND EVENING active Not Available Not Available Not Available nitrofuranto in monohydrate/ macrocrystal s 100 mg capsule TAKE 1 CAPSULE BY MOUTH TWICE DAILY FOR 7 DAYS active Not Available Not Available No t Available pregabalin 150 mg capsule TAKE ONE CAPSULE TWICE DAILY IN THE MORNING AND AT BEDTIME active Not Available Not Available N ot Available pregabalin 200 mg capsule TAKE ONE CAPSULE TWICE DAILY IN THE MORNING AND AT BEDTIME active Not Available Not Available N ot Available pregabalin 225 mg capsule TAKE ONE CAPSULE TWICE DAILY IN THE MORNING AND AT BEDTIME active Not Available Not Available N ot Available diclofenac 1 % topical gel APPLY 2 GRAM'S TO AFFECTED AREA(s) TWICE DAILY NEEDED FOR muscle PAIN active Not Available Not Available No t Available naloxone 4 mg/actuation nasal spray FOR SUSPECTED OPIOID OVERDOSE. SPRAY 0.1mL IN ONE NOSTRIL. REPEAT IN ALTERNATE NOSTRIL 2-3 MINUTES IF NEEDED. SEEK MEDICAL ATTENTION IMMEDIATELY EVEN IF PATIENT RESPONDS. active Not Available Not Available No t Available Trelegy Ellipta 200 mcg-62.5 mcg-25 mcg powder for inhalation INHALE ONE PUFF DAILY, RINSE MOUTH AFTER USE active Not Available Not Available No t Available Vitals Date Recorded Oxygen saturation Oxygen saturation in Arterial blood by Pulse oximetry Respiratory rate Body weight Body temperature Body height Heart rate Systolic blood pressure Diastolic blood pressure Provider Name and Address Organization Details Last Updated DateTime 4 98 % 98 % 14 /min 10179.8 g 98.4 [degF] 152.4 cm 80 /min 126 mm[Hg] 78 mm[Hg] Not Available [employer] - production 09:30:03 Social History None recorded. Functional Status None recorded. Mental Status None recorded. Family History Nothing Reported. Medical History No medical history recorded. Gynecological HistoryNo gynecological history recorded. Obstetrics History GPAL:G 0 P 0 0 0 0 Past Encounters Encounter ID Performer Location Encounter Start Date Encounter Closed Date Diagnosis/Indication Diagnosis SNOMED-CT Code Diagnosis ICD10 Code Diagnosis Note [id number] Marlene Velazquez MD [facility] - [facility] [address] [place] [address] 07/04/2024 09:29:57 07/04/2024 16:20:07 Chronic low back pain 123288068 M54.50 Urinary symptoms 3232836 08 R39.9 Health Concerns Section Related Observation LastModified by Organization Detai ls LastModified Time None Recorded Concern Status LastModified by Organization Details LastModified Time None Recorded Advance Directives Directive None Recorded Payers Encounter Date Sequence Insurance Name Policy Number Policy Mckinnon Covered Member ID Mckinnon Member ID Guarantor Name 07/04/2024 1 [facility] - DOS ON OR AFTER 2023 - DUAL ELIGIBLE - LONGTERM OPTIONS AND ONE CARE (MEDICARE REPLACEMENT/ADV ANTAGE - HMO) Juana Lord [id number] Juana Lord Notes Date Note Type Note Provider Name and Address Organization Details Recorded Time 07/04/2024 text/html HPI: Triage call returned to patient for reports of confusion. Patient able to make all needs known and no verbal deficit. Reports more forgetfulness. Confirms some cramping and hot urine with voiding at times. No flank pain. .................... .................... .................... .................... .................... .................... .................... . [facility] Nurse Triage Notes (Kortney Quinones): Chief Complaints: Altered Mental Status, UTI/Pyelonephritis PMH: Hypertension, COPD/Asthma, Diabetes Allergies: Aspirin, Penicillin Other Allergies: Atorvastatin,alendro kai Comments: HPI reviewed. No further information needed to process visit. 1700 Member was sleeping and did not want the visit today---- 07/03 member requesting a visit tomorrow 07/04 instead, visit r/s per member request- Rpg Developer Organization Information for Mark Johnston [employer] Legal Name: [facility] [employer] Address: [address] [place] [address], [place] [address], Tow Truck Dispatcher: Michael Pizarro MD [place] No.: [id number] Rpg Developer POC Test Results from Mark Johnston Urine Dipstick (09:17:07) Urine leukocytes: - FRANK Urine nitrites: - NIT Urine urobilinogen: 0.2 URO Urine protein: 30 PRO Urine pH: 5.0 pH Urine blood: - BLO Urine specific gravity: 1.015 SG Urine ketones: - KET Urine bilirubin: - HUMERA Urine glucose: - GLU .................... .................... .................... .................... .................... .................... .................... . Rpg Developer Note From Mark Johnston: Patient alert and oriented times three complains of lower abdominal pain times several days. Patient complains that she had constipation in the past, but this feels different. Patient said she also has lower back pain centered near her spine consistent with her history of sciatica pain she states. Patient states pain may be referred from that. Patient states pain doesn? t change when she moves or eats. Patient states she? s had UTIs in the past and wanted to check on that. Patient says she moved her bowels normally this morning. Patient states she has an appointment at the neurosurgeon for sciatica pain in 30 minutes from now.Patient, pink warm, dry, secondary exam unremarkable, abdomen, soft, non-tender no masses noted. Lung sounds clear negative edema. UA dip negative. Pale yellow, clear, no sediment. [facility] advises patient to follow up with PCP if symptoms continue.Red flags, patient education discussed. Rpg Developer Allergies: Aspirin, Penicillin .................... .................... .................... .................... .................... .................... .................... . Disposition: Srinath Velazquez MD [address] [facility],[address], [place], [address], [employer] 07/04/2024 10:38:05 OBGyn Episode No OBEpisode recorded.
--- OUTSIDE RECORDS SUMMARY | 2025-02-06 09:39 | XMS_ITS | Encounter Summary ---
Author Organization [email or web address] Address 75 [facility] 7t [place] [address] Care Team Providers Care Cable Ferryboat Operator Name Role Phone Name, Boo FARLEY Primary Care Provider [phone] Ira Orozco PharmD Unavailable [phone] Reason for Visit * Reason Comments Med Refill Encounter Details Date Type Department Care Team ([facility] st Contact Info) Description 02/14/2024 Refill [facility] [address] [place], [place] [phone] Name, MD Boo [address] [place] [address] Fibromyalgia Social History Tobacco Use Types Packs/Day Years [...] Description 03/21/2025 11:00 AM EDT Medication Management [facility] [address] [place] [phone] Ira Orozco, PharmD [address] [place] [address] 04/21/2025 10:30 AM EDT Clinical Support [facility] [address] [place] [address] Ame Love, GEM 05/02/2025 10:00 AM EDT Office Visit [facility] [address] [place] [address] Pedro, Katlyn, OD [address] [place] [address] 05/16/2025 10:00 AM EDT Office Visit [facility] [address] [place] [phone] Name, MD Boo [address] [place] [address] documented as of this encounter Goals Goal Patient Goal Type Associated Problems Recent Progress Patient-Stated? Author Blood Pressure < 140/90 Blood Pressure 118/76( 025 1:43 PM EDT) No Moe Johnson documented as of this encounter Visit Diagnoses Diagnosis Fibromyalgia Unspecified myalgia and myositis documented in this encounter Additional Health Concerns Assessment Noted Time PHQ-9 Depression Total Score: 6 12/20/20 22 4:10 PM EST documented as of this encounter Care Teams Cable Ferryboat Operator Relationship Specialty Start Date End Date Name, MD Boo [address] [place] [address] PCP - General Family Medicine 04/26/19 Ira Orozco, LesleyD [address] [place] [address] Pharmacist Internal Medicine 02/03/25 Janessa Fraga 11/23/24 documented as of this encounter
--- OUTSIDE RECORDS SUMMARY | 2025-02-06 09:39 | XMS_ITS | Encounter Summary ---
Author Organization [facility] Address [address] [place] [address] Care Team Providers Care Snuff Box Finisher Name Role Phone Lissy Kumari DO Primary [...] Details Date Type Department Care Team Description 04/15/2016 Wellness Visit Medical Records [address] [place] [address] Lissy Kumari DO Social History Tobacco Use [...] on filedocumented in this encounter Care Teams Snuff Box Finisher Relationship Specialty Start Date End Date Lissy [...]
--- OUTSIDE RECORDS SUMMARY | 2025-02-06 09:39 | XMS_ITS | Encounter Summary ---
Author Organization [facility] Address [address] [place] [address] Care Team Providers Care Sales Analyst Name Role Phone Lissy Kumari DO Primary [...] Details Date Type Department Care Team Description 01/19/2016 Orders Only Adult Medicine [address] [address] Lissy Kumari DO Social History Tobacco Use [...] on filedocumented in this encounter Care Teams Sales Analyst Relationship Specialty Start Date End Date Lissy [...]
--- OUTSIDE RECORDS SUMMARY | 2025-02-06 09:39 | XMS_ITS | Encounter Summary ---
Author Organization [facility] Address [address] [place] [address] Care Team Providers Care Senior Technologist Name Role Phone Name, Boo FARLEY Primary [...] Details Date Type Department Care Team Description 07/16/2013 Securities Underwriter Report Medical Records [address] [place] [phone] Mc Tapia PA-C Social History Tobacco Use Types Packs/Day [...] filedocumented in this encounter Care Teams Senior Technologist Relationship Specialty Start Date End Date Boo [...]
--- OUTSIDE RECORDS SUMMARY | 2025-02-06 09:39 | XMS_ITS | Encounter Summary ---
Author Organization [employer] Address [address] 7[address] [place] [address] Care Team Providers Care Hand Therapist Name Role Phone Name, Boo FARLEY Primary Care Provider [phone] Ira Orozco PharmD Unavailable [phone] Reason for Visit * Reason Onset Date Comments PA for tooth 9 08/21/2023 status on case back from lab? 08/21/2023 Encounter Details Date Type Department Care Team ([facility] st Contact Info) Description 08/21/2023 Telephone [facility] AD[facility] D[facility]AL [address] [place] [address] He Jimenez, DDS [address] [place], [place] [phone] PA for tooth 9; status on case back from lab? Social History Tobacco Use Types Packs/Day Years [...] encounter Miscellaneous Notes * Telephone Encounter - Eloisa Dennison - 09/04/2023 10:51 AM EDT Patient would like to confirm if case is back from lab for appt * Telephone Encounter - Eloisa Dennison - 08/21/2023 10:08 AM EDT Patient has been approved for tooth #8 for crown through [facility] but she is confused as towhy there is no approval for tooth #9. She is also questioning whether her SFS was approved as she applied some time ago and is willing to use that for tooth 9 if necessary. Email sent to Nicolasa with the SFS inquiry. She is looking to have this work done prior to 09/13 due to grand daughters sweet 15. documented in this encounter Plan of Treatment Upcoming Encounters Date Type Department Care Team (Late st Contact Info) Description 03/21/2025 11:00 AM EDT Medication Management [facility] MED[facility] [address] [place] [address] Ira Orozco, PharmD [address] [place] [address] 04/21/2025 10:30 AM EDT Clinical Support [facility] [address] [place] [address] Ame Love, RN 05/02/2025 10:00 AM EDT Office Visit [facility] OPTOMETRY [address] [place] [address] Pedro, Katlyn, OD [address] [place] [address] 05/16/2025 10:00 AM EDT Office Visit [facility] [address] [place] [address] Name, MD Boo [address] [place] [address] documented as of this encounter Goals Goal [...] documented as of this encounter Care Teams Hand Therapist Relationship Specialty Start Date End Date NameBoo MD [address] [place] [address] PCP - General Family Medicine 04/26/19 Ira Orozco PharmD [address] [place] [address] Pharmacist Internal Medicine 02/03/25 Janessa Fraga 11/23/24 documented as of this encounter
--- OUTSIDE RECORDS SUMMARY | 2025-02-06 09:39 | XMS_ITS | Encounter Summary ---
Author Organization [facility] Address [address] [place] [address] Care Team Providers Care Granulator Tender Name Role Phone Name, Boo FARLEY [...] Details Date Type Department Care Team Description 03/22/2011 Pediatric Sports Medicine Specialist Report Medical Records [address] [place] [address] Florian Oconnor Social History Tobacco Use Types [...] on filedocumented in this encounter Care Teams Granulator Tender Relationship Specialty Start Date End Date Boo Hastings MD PCP - General 03/26/07 08/23/15 Boo Hastings MD PCP - General Internal Medicine 08/24/15 11/16/15 Lissy Kumari DO PCP - General Internal Medicine 11/17/15 12/19/16 [facility], Pcp PCP - General Internal Medicine 12/20/16 07/01/18 Verna Wright MD PCP - General Internal Medicine 07/02/18 [facility], Pcp PCP - General Internal Medicine 07/15/19 07/20/21 Name, MD Boo PCP - General Internal Medicine 04/06/19 06/02/19 Name, MD Boo PCP - General Internal Medicine 06/03/19 07/14/19 Name, MD Boo PCP - General Internal Medicine 06/03/22 documented as of this encounter
--- OUTSIDE RECORDS SUMMARY | 2025-02-06 09:39 | XMS_ITS | Encounter Summary ---
Author Organization [employer] Address [address] [facility] 7t [place] [address] Care Team Providers Care Appliance Service Technician Name Role Phone Name, Boo FARLEY Primary Care Provider [phone] Ira Orozco PharmD Unavailable [phone] Reason for Visit * Reason Onset Date Comments Med Refill 01/03/2024 Encounter Details Date Type Department Care Team (Late st Contact Info) Description 01/03/2024 Telephone [facility]INE [address] [place], [place] [phone] Name, MD Boo [address] [place], [place] [phone] Med Refill Social History Tobacco Use Types Packs/Day Years Used Date Smoking Tobacco: Former Passive Smoke Exposure: Past Smokeless Tobacco: Never Alcohol Use Standard Drinks/Week Comments Never 0 (1 standard drink = 0.6 oz pur e alcohol) Depression Answer Date Recorded Patient Health Questionnaire-9 Score 6 10/25/2022 Housing Stability Answer Date Recorded What is your housing situation today? I have baudliio spence 08/21/[address] you [...] Encounter - Becca Vance RN - 01/03/2024 10:06 AM EST T?C to pt. For below message, pt. States she needs brand name only, pt. Advised to discuss with provider in today apt. For brand request only. Pt. Verbally agreed and understood. * Telephone Encounter - Heidi Antonio - 01/03/2024 9:41 AM EST Tc from pt requesting Lidoderm 5% patches to be sent to [facility] - [place], [place] - [facility] [address] States she does not want generic, only brand name. documented in this encounter Plan of Treatment Upcoming Encounters Date Type Department Care Team (Late st Contact Info) Description 03/21/2025 11:00 AM EDT Medication Management [facility] MEDICINE [address] [place] [address] Ira Orozco, Nelida [address] [place] [address] 04/21/2025 10:30 AM EDT Clinical Support [facility] MED[facility]INE [address] [place] [address] Ame Love RN 05/02/2025 10:00 AM EDT Office Visit [facility] OPTOMETRY [address] [place] [address] Katlyn Vasquez, OD [address] [place] [address] 05/16/2025 10:00 AM EDT Office Visit [facility] MED[facility]INE [address] [place] [address] Name, MD Boo [address] [place] [address] documented as of this encounter Goals Goal Patient Goal Type Associated Problems Recent Progress Patient-Stated? Author Blood Pressure < 140/90 Blood Pressure 118/76( 025 1:43 PM EDT) Moe Mcgee documented as of this encounter Visit Diagnoses Not on filedocumented in this encounter Additional Health Concerns Assessment Noted Time PHQ-9 Depression Total Score: 6 10/25/20 22 4:10 PM EST documented as of this encounter Care Teams Appliance Service Technician Relationship Specialty Start Date End Date NameBoo MD [address] [place] [address] PCP - General Family Medicine 04/26/19 Ira Orozco, Nelida [address] [place] [address] [phone] Pharmacist Internal Medicine 02/03/25 Janessa Fraga 11/23/24 documented as of this encounter
--- OUTSIDE RECORDS SUMMARY | 2025-02-06 09:39 | XMS_ITS | Encounter Summary ---
Author Organization [employer] Address [address] [facility] 7t [place] [address] Care Team Providers Care Material Clerk Name Role Phone Name, Boo FARLEY Primary Care Provider [phone] Ira Orozco PharmD Unavailable [phone] Reason for Visit * Reason Comments Med Refill Encounter Details Date Type Department Care Team ([facility] st Contact Info) Description 03/15/[address] [facility] [address] [place], [place] [phone] Name, MD Boo [address] [place] [address] Chronic pain syndrome Social History Tobacco Use [...] Description 03/21/2025 11:00 AM EDT Medication Management [facility] [address] [place] [address] Ira Orozco, PharmD [address] [place] [address] 04/21/2025 10:30 AM EDT Clinical [address] [facility] [address] [place] [address] Ame Love, GEM 05/02/2025 10:00 AM EDT Office Visit [facility] OPTOMETRY [address] [place] [address] Pedro, Katlyn, OD [address] [place] [address] 05/16/2025 10:00 AM EDT Office Visit [facility] [address] [place] [phone] Name, MD Boo [address] [place] [address] documented as of this encounter Goals Goal [...] documented as of this encounter Care Teams Material Clerk Relationship Specialty Start Date End Date Name, MD Boo [address] [place], [place] [phone] PCP - General Family Medicine 04/26/19 Ira Orozco PharmD [address] [place] [address] Pharmacist Internal Medicine 02/03/25 Janessa Fraga 11/23/24 documented as of this encounter
--- OUTSIDE RECORDS SUMMARY | 2025-02-06 09:40 | XMS_ITS | Encounter Summary ---
Author Organization [facility] Address [address] [place] [address] Care Team Providers Care Padder Name Role Phone Lissy Kumari DO Primary [...] Details Date Type Department Care Team Description 08/29/2016 [facility] Medical Records [address] [place] [address] Abstract, Provider Social History Tobacco Use Types [...] on filedocumented in this encounter Care Teams Padder Relationship Specialty Start Date End Date Lissy Kumari DO PCP - General Internal Medicine 11/17/15 12/19/16 [facility], Pcp PCP - General Internal Medicine 12/20/16 07/01/18 Verna Wright MD PCP - General Internal Medicine 07/02/18 [facility], Pcp PCP - General Internal Medicine 07/15/19 07/20/21 Boo Hastings MD PCP - General Internal Medicine 04/06/19 06/02/19 Boo Hastings, MD PCP - General Internal Medicine 06/03/19 07/14/19 Name, MD Boo PCP - General Internal Medicine 06/03/22 documented as of this encounter
--- OUTSIDE RECORDS SUMMARY | 2025-02-06 09:40 | XMS_ITS | Encounter Summary ---
Author Organization [employer] Address [address] [facility] 7t [place] [address] Care Team Providers Care Fox Farmer Name Role Phone Name, Boo FARLEY Primary Care Provider [phone] Ira Orozco PharmD Unavailable [phone] Reason for Visit * Reason Comments Med Refill Encounter Details Date Type Department Care Team (Late st Contact Info) Description 07/30/2024 Refill [facility] [address] [place], [place] [phone] Name, MD Boo [address] [place] [address] Lumbar radiculopathy Social History Tobacco Use Types [...] Description 03/21/2025 11:00 AM EDT Medication Management [facility] [address] [place] [address] Ira Orozco, PharmD [address] [place] [address] 04/21/2025 10:30 AM EDT Clinical Support [facility] [address] [place] [address] Ame Love, GEM 05/02/2025 10:00 AM EDT Office Visit [facility]OMET[facility] [address] [place] [address] Katlyn Vasquez, OD [address] [place] [address] 05/16/2025 10:00 AM EDT Office Visit [facility] [address] [place] [address] Name, MD Boo [address] [place] [address] documented as of this encounter Goals Goal [...] documented as of this encounter Care Teams Fox Farmer Relationship Specialty Start Date End Date Name, MD Boo [address] [place] [address] PCP - General Family Medicine 04/26/19 Ira Orozco PharmD [address] [place] [address] Pharmacist Internal Medicine 02/03/25 Janessa Fraga 11/23/24 documented as of this encounter
--- OUTSIDE RECORDS SUMMARY | 2025-02-06 09:40 | XMS_ITS | Encounter Summary ---
Author Organization [employer] Address [address] [facility] 7t [place] [address] Care Team Providers Care Rhic Systems Safety Engineer Name Role Phone Name, Boo FARLEY Primary Care Provider [phone] Ira Orozco PharmD Unavailable [phone] Reason for Visit * Reason Onset Date Comments Med Refill 04/09/2024 Encounter Details Date Type Department Care Team (Late st Contact Info) Description 04/09/2024 Telephone [facility] MEDICINE [address] [place], [place] [phone] Name, MD Boo [address] [place], [place] [phone] Med Refill Social History Tobacco Use Types [...] Telephone Encounter - Charity Hardy LPN - 04/09/2024 10:26 AM EDT Inhalers aren't prescribed by PCP and Lidocaine cream was sent in place of patches on 03/20/24 with 1 refill. * Telephone Encounter - Andrew Emery - 04/09/2024 10:11 AM EDT TC from pt requesting medication refill. Medications needing refill : albuterol 108 (90 Base) MCG/ACT inhaler , predniSONE (Deltasone) 20 MGtablet , Trelegy Ellipta 200-62.5-25 MCG/ACT aerosol powder And lidocaine (Lidoderm) 5 % patch investment underwriter did confirm with pharmacy and was discontinued on 03/20 To be sent to: [facility] - [place] - [address] documented in this encounter Plan of Treatment Upcoming Encounters Date Type Department Care Team (Late st Contact Info) Description 03/21/2025 11:00 AM EDT Medication Management [facility]ICINE [address] [place] [address] Ira Orozco, PharmD [address] [place], [place] [phone] 04/21/2025 10:30 AM EDT Clinical Support [facility]ICINE [address] [place] [address] Ame Love, RN 05/02/2025 10:00 AM EDT Office Visit [facility] OPTOMETRY [address] [place] [address] Katlyn Vasquze, OD [address] [place] [address] 05/16/2025 10:00 AM EDT Office Visit [facility] MEDICINE [address] [place] [address] Name, MD Boo [address] [place] [address] documented as of this encounter Goals Goal [...] documented as of this encounter Care Teams Rhic Systems Safety Engineer Relationship Specialty Start Date End Date [place] [address] PCP - General Family Medicine 04/26/19 Ira Orozco PharmD [address] [place] [address] Pharmacist Internal Medicine 02/03/25 Janessa Fraga 11/23/24 documented as of this encounter
--- OUTSIDE RECORDS SUMMARY | 2025-02-06 09:40 | XMS_ITS | Encounter Summary ---
Author Organization [facility] Address [address] [place] [address] Care Team Providers Care Pattern Repair Person Name Role Phone Lissy Kumari DO Primary [...] Details Date Type Department Care Team Description 09/08/2016 Release of Information Medical Records [address] [place] [address] Abstract, Provider Social History Tobacco Use Types [...] on filedocumented in this encounter Care Teams Pattern Repair Person Relationship Specialty Start Date End Date Lissy [...]
--- OUTSIDE RECORDS SUMMARY | 2025-02-06 09:40 | XMS_ITS | Encounter Summary ---
Author Organization [facility] Address [address] [place] [address] Care Team Providers Care Manager Of Transportation Name Role Phone Name, Boo FARLEY Primary [...] Details Date Type Department Care Team Description 08/18/2014 Hospital Medical Records [address] [place] [address] Michelle Baez DO Social History Tobacco Use Types Packs/Day [...] on filedocumented in this encounter Care Teams Manager Of Transportation Relationship Specialty Start Date End Date Boo [...]
--- OUTSIDE RECORDS SUMMARY | 2025-02-06 09:40 | XMS_ITS | Encounter Summary ---
Author Organization [employer] Address [address] [facility] 7t [place] [address] Care Team Providers Care Authorization Specialist Name Role Phone Name, Boo FARLEY Primary Care Provider Ira Orozco PharmD Unavailable [phone] Reason for Visit * Reason Onset Date Comments Nurse Triage 06/19/2024 Encounter Details Date Type Department Care Team ([facility] st Contact Info) Description 06/19/2024 Telephone [facility]INE [address] [place], [place] [phone] Name, MD Boo [address] [place], [place] [phone] Nurse Triage Social History Tobacco Use Types Packs/Day Years [...] Recorded Patient Health Questionnaire-2 Score 6 05/16/2024 Comments No Sex and Gender Information Value Date Recorded Sex Assigned at Female 09/05/2022 10:16 AM EDT Legal Sex Female 10:16 AM EDT Gender Identity Female 09/05/2022 10:16 AM EDT Sexual Orientation Straight 09/05/2022 10 :16 AM EDT documented as of this encounter Miscellaneous Notes * Telephone Encounter - Phoebe Cruz RN - 06/19/2024 12:24 PM EDT Triage call Pt reports difficulty breathing for several weeks now. Pt reports SOB with exertion andat rest. Pt reports has fever at bed time of 98 F. Pt has been taking singulair as prescribed andhas been using the hand held inhaler 3x daily, Pt can't confirm if it is albuterol or elipta. Pt has not been using the albuterol nebulizer and is advised to try this in the mornings. Pt reports cough frequently, Pt is advised to use 2 tsp honey at bed time for the cough, if coughing spell turn on hot water in shower, shut bathroom door and breath in the warm steamy air. Pt is advised to increaseliquids 6-8 glasses daily with warm decaf tea to sooth cough. Pt is offered to come to [facility] today but, declines and is asking to only speak with PCP Dr. Hastings. ASK apt with Dr. Hastings 06/20/24 at 900am. Pt agrees with disposition and home care advised. Insurance is verified as active prior to booking. Protocol Used: Breathing Difficulty (Adult) Protocol-Based Disposition: See in Office or Video Visit within 3 Days Video visit offer not recorded Positive Triage Question: * Moderate longstanding difficulty breathing (e.g., speaks in phrases, SOB even at rest, pulse 100-120) and same as normal< br /> * All higher-acuity triage questions were negative Care Advice Discussed: * General Care Advice for Breathing Difficulty * Reasons To Call Back - Severe difficulty breathing occurs - Fever more than 100.4 F (38.0 C) - You become worse * Telephone Encounter - Monique Herbert - 06/19/2024 11:57 AM EDT Symptom: Breathing Trouble Outcome: Schedule an urgent appointment (within 1 hour) or talk to a nurse or provider soon Reason: Caller denied all higher acuity questions The caller accepted this outcome documented in this encounter Plan of Treatment Upcoming Encounters Date Type Department Care Team (Late st Contact Info) Description 03/21/2025 11:00 AM EDT Medication Management [facility] [address] [place] [address] Ira Orozco, LesleyD [address] [place] [address] 04/21/2025 10:30 AM EDT Clinical Support [facility] [address] [place] [address] Ame Love RN 05/02/2025 10:00 AM EDT Office Visit [facility] OPTOMETRY [address] [place] [address] Katlyn Vasquez, LESLEY [address] [place] [address] 05/16/2025 10:00 AM EDT Office Visit [facility] MED[facility] [address] [place] [address] Name, MD Boo [address] [place] [address] documented as of this encounter Goals Goal Patient Goal Type Associated Problems Recent Progress Patient-Stated? Author Blood Pressure < 140/90 Blood Pressure 118/76( 025 1:43 PM EDT) No oMe Johnson documented as of this encounter Visit Diagnoses Not on filedocumented in this encounter Additional Health Concerns Assessment Noted Time PHQ-9 Depression Total Score: 11 024 11:21 AM EDT documented as of this encounter Care Teams Authorization Specialist Relationship Specialty Start Date End Date Name, MD Boo [address] [place] [address] PCP - General Family Medicine 04/26/19 Ira Orozco, Nelida [address] [place] [address] Pharmacist Internal Medicine 02/03/25 Janessa Fraga 11/23/24 documented as of this encounter
--- OUTSIDE RECORDS SUMMARY | 2025-02-06 09:40 | XMS_ITS | Encounter Summary ---
Author Organization [facility] Address [address] [place] [address] Care Team Providers Care Semiconductor Testing Group Leader Name Role Phone Name, Boo FARLEY Primary [...] * Reason Onset Date Comments Faxed Order 08/27/2014 [facility] Encounter Details Date Type Department Care Team Description 08/27/2014 Telephone Adult Medicine [address] [address] Name, MD Boo [facility] Social History Tobacco Use Types Packs/Day Years [...] encounter Miscellaneous Notes * Telephone Encounter - Thao Mercado - 09/05/2014 4:47 PM EDT URGENT 2nd request, Face to Face, sign and date, fax back to [phone] Att Bebe. * Telephone Encounter - Katie Chahal - 08/27/2014 4:05 PM EDT Received faxed orders for [facility] please sign and fax back to [phone] documented in this encounter Plan of Treatment Not on file documented as of this encounter Visit Diagnoses Not on filedocumented in this encounter Care Teams Semiconductor Testing Group Leader Relationship Specialty Start Date End Date Name, [...]
--- OUTSIDE RECORDS SUMMARY | 2025-02-06 09:40 | XMS_ITS | Encounter Summary ---
Author Organization [facility] Address [address] [place] [address] Care Team Providers Care Elementary Education Tutor Name Role Phone Name, Boo FARLEY Primary [...] for Visit * Reason Onset Date Comments hospital follow up 07/08/2014 Encounter Details Date Type Department Care Team Description 07/08/2014 Telephone Adult Medicine [address] [phone] Name, MD Boo hospital follow up Social History Tobacco Use Types Packs/Day Years [...] encounter Miscellaneous Notes * Telephone Encounter - Alexandria Stokesyudith - 07/08/2014 11:11 AM EDT ER follow-up appointment booked triage call If ER follow up, can be booked with mid-level or MD. If hospital admission follow up MUST be booked with a physician Hospital patient was [facility] at: [facility] Date of visit: 07/01 D/c 07/06 Was this only an ER visit or was the patient admitted to the hospital? Admitted to hospitalAdmittedto hospital If patient was admitted what was the date of discharge? 07/06/14 Reason/diagnosis for visit or stay: kidney problems Was visit or stay related to an injury? NO If yes, what was the date of injury (DOI)? N/A If yes, was the injury due to N/A Tests performed: Lab: YES X-ray: YES EKG: YES Other tests. If yes, what?; Ultrasound documented in this encounter Plan of Treatment Not on file documented as of this encounter Visit Diagnoses Not on filedocumented in this encounter Care Teams Elementary Education Tutor Relationship Specialty Start Date End Date Name, MD Boo PCP - General 03/26/07 08/23/15 Boo Hastings MD PCP - General Internal Medicine 08/24/15 11/16/15 Lissy Kumari DO PCP - General Internal Medicine 11/17/15 12/19/16 [facility], Pcp PCP - General Internal Medicine 12/20/16 07/01/18 Verna Wright MD PCP - General Internal Medicine 07/02/18 [facility], Pcp PCP - General Internal Medicine 07/15/19 07/20/21 Boo Hastings MD PCP - General Internal Medicine 04/06/19 06/02/19 Boo Hastings MD PCP - General Internal Medicine 06/03/19 07/14/19 Boo Hastings MD PCP - General Internal Medicine 06/03/22 documented as of this encounter
--- OUTSIDE RECORDS SUMMARY | 2025-02-06 09:40 | XMS_ITS | Encounter Summary ---
Author Organization [facility] Address [address] [place] [address] Care Team Providers Care Research Nutritionist Name Role Phone Name, Boo FARLEY Primary [...] Details Date Type Department Care Team Description 07/11/2014 [employer] Report Medical Records [address] [place] [address] Sky Solano MD Social History Tobacco Use Types Packs/Day [...] on filedocumented in this encounter Care Teams Research Nutritionist Relationship Specialty Start Date End Date Boo Hastings MD PCP - General 03/26/07 08/23/15 Boo Hastings MD PCP - General Internal Medicine 08/24/15 11/16/15 Lissy Kumari DO PCP - General Internal Medicine 11/17/15 12/19/16 [facility], Pcp PCP - General Internal Medicine 12/20/16 07/01/18 Verna Wright MD PCP - General Internal Medicine 07/02/18 [facility], Pcp PCP - General Internal Medicine 07/15/19 07/20/21 Name, MD Boo PCP - General Internal Medicine 04/06/19 06/02/19 Name, MD Boo PCP - General Internal Medicine 06/03/19 07/14/19 Name, MD Boo PCP - General Internal Medicine 06/03/22 documented as of this encounter
--- OUTSIDE RECORDS SUMMARY | 2025-02-06 09:40 | XMS_ITS | Encounter Summary ---
Author Organization [facility] Address [address] [place] [address] Care Team Providers Care Forms Analysis Manager Name Role Phone Name, Boo FARLEY [...] for Visit * Reason Onset Date Comments Orders Call 01/09/2012 Encounter Details Date Type Department Care Team Description 01/09/2012 Telephone Adult [address] [address] Name, MD Boo Orders Call Social History Tobacco Use Types Packs/Day [...] Telephone Encounter - Ynes Ham M.A. - 01/09/2012 5:01 PM EST Orders on dr names desk * Telephone Encounter - Violeta Cantu - 01/09/2012 4:44 PM EST IDS IS FAXING ORDERS TO DR BARONE SIGNED AND FAX BACK [phone]. documented in this encounter Plan of Treatment Not on file documented as of this encounter Visit Diagnoses Not on filedocumented in this encounter Care Teams Forms Analysis Manager Relationship Specialty Start Date End Date Name, MD Boo PCP - General 03/26/07 08/23/15 Boo Barone MD PCP - General Internal Medicine 08/24/15 11/16/15 Lissy Kumari DO PCP - General Internal Medicine 11/17/15 12/19/16 [facility], Pcp PCP - General Internal Medicine 12/20/16 07/01/18 Verna Wright MD PCP - General Internal Medicine 07/02/18 [facility], Pcp PCP - General Internal Medicine 07/15/19 07/20/21 Boo Barone MD PCP - General Internal Medicine 04/06/19 06/02/19 Boo Barone MD PCP - General Internal Medicine 06/03/19 07/14/19 Boo Barone MD PCP - General Internal Medicine 06/03/22 documented as of this encounter
--- OUTSIDE RECORDS SUMMARY | 2025-02-06 09:40 | XMS_ITS | Encounter Summary ---
Author Organization [facility] Address [address] [place] [address] Care Team Providers Care Quality Control Checker Name Role Phone Lissy Kumari DO Primary [...] Reason Onset Date Comments Provider Call Back 05/19/2016 Encounter Details Date Type Department Care Team Description 05/19/2016 Telephone General Surgery [address] [place] [address] Marybel Ratliff MD [address] [place] [address] Provider Call Back Social History Tobacco Use [...] encounter Miscellaneous Notes * Telephone Encounter - Linda Dunn MA - 05/24/2016 9:19 AM EDT Left voicemail to return call * Telephone Encounter - Marybel Ratliff MD - 05/24/2016 8:50 AM EDT Patient should refer to written post-operative instructions. No dressings are needed once they areremoved at 48 hours. * Telephone Encounter - Jennifer Lombardo C.M.A. - 05/20/2016 10:[address] Ratliff, please advise * Telephone Encounter - Anjali Becerra - 05/19/2016 1:00 PM EDT Caller requesting call back from provider: Is the caller the patient? YES If caller is not the patient, what is the callers name? N/A Callers relationship to patient? N/A Reason for call back: Patient has not heard from anyone about changing the dressing. Should she do this herself. Caller offered to speak with the nurse for assistance: YES Response: Patient offered to speak with nurse for assistance and patient agreed. Message forwarded to nurse. documented in this encounter Plan of Treatment Not on file documented as of this encounter Visit Diagnoses Not on filedocumented in this encounter Care Teams Quality Control Checker Relationship Specialty Start Date End Date Lissy [...]
--- OUTSIDE RECORDS SUMMARY | 2025-02-06 09:40 | XMS_ITS | Encounter Summary ---
Author Organization [facility] Address [address] [place] [address] Care Team Providers Care Sewing Line Baler Name Role Phone Name, Boo FARLEY Primary [...] Visit * Reason Onset Date Comments REFERRAL 03/29/2012 Encounter Details Date Type Department Care Team Description 03/29/2012 Telephone Adult Medicine [address] [address] Name, MD Boo REFERRAL Social History Tobacco Use Types Packs/Day [...] Miscellaneous Notes * Telephone Encounter - Prachi Sahu - 04/10/2012 10:42 AM EDT * Telephone Encounter - Gabi Holley M.A. - 04/03/2012 8:45 AM EDT Called pt, she is stating that she needs an actual referral to have care at 14 hrs/week. She will call them and ask them to call us with what information is required. She does not want the letter. * Telephone Encounter - Boo Hastings MD - 04/03/2012 8:33 AM EDT I did a letter for her on 03/23. Please print and send it to her. I guess we can change the hours ifwe have to. * Telephone Encounter - Gabi Holley M.A. - 04/03/2012 8:24 AM EDT Pt is looking for letter to increase the number of hours she gets with her PCS. She is now getting 10 hrs/week, and would like to increase to 14 hrs/week. She has a lot of knee pain, body pain, and her asthma is bothering her. Company is [employer] * Telephone Encounter - Boo Hastings MD - 03/29/2012 10:56 AM EDT Please call to see what she wants. * Telephone Encounter - Prachi Sahu - 03/29/2012 10:29 AM EDT Patient was last seen in physiatry on June of 2011. Patient is having knee pain and was told to request a note from Dr. Hastings so they can schedule her an appointment. Requesting a call back. documented in this encounter Plan of Treatment Not on file documented as of this encounter Visit Diagnoses Not on filedocumented in this encounter Care Teams Sewing Line Baler Relationship Specialty Start Date End Date Boo [...]
--- OUTSIDE RECORDS SUMMARY | 2025-02-06 09:40 | XMS_ITS | Encounter Summary ---
Author Organization [employer] Address [address] [facility] 7t [place] [address] Care Team Providers Care Magazine Publisher Name Role Phone Name, Boo FARLEY Primary Care Provider [phone] Ira Orozco PharmD Unavailable [phone] Reason for Visit * Reason Onset Date Comments appt/disconnected call 08/23/2024 Encounter Details Date Type Department Care Team ([facility] Contact Info) Description 08/23/2024 Telephone [facility] [address] [place], [place] [phone] Kirsten Keegan [address] [place] [address] appt/disconnected call Social History Tobacco Use Types Packs/Day Years [...] * Telephone Encounter - Eloisa Dennison - 08/23/2024 9:49 AM EDT Patient called in requesting an appt for dental treatment Placed patient on hold to contact [facility] for[facility]. Patient disconnected call. Appts offered by Kellie were 08/30 at [address] Curtis. Returned call to patient to offer appt date and times. No answer. Left voicemail informingpatient that call disconnected. Requested for patient to call back and if times were still available, she can be scheduled. Otherwise different appt times would be worked out for patient. Waiting forreturn call documented in this encounter Plan of Treatment Upcoming Encounters Date Type Department Care Team ([facility] st Contact Info) Description 03/21/2025 11:00 AM EDT Medication Management [facility] [address] [place] [address] Ira Orozco, PharmD [address] [place] [address] 04/21/2025 10:30 AM EDT Clinical Support [facility] [address] [place] [address] Ame Love, RN 05/02/2025 10:00 AM EDT Office Visit [facility] [address] [place] [address] Katlyn Vasquez, OD [address] [place] [address] 05/16/2025 10:00 AM EDT Office Visit [facility] [address] [place] [address] Name, MD Boo [address] [place] [address] documented as of this encounter Goals Goal [...] documented as of this encounter Care Teams Magazine Publisher Relationship Specialty Start Date End Date Name, MD Boo [address] [place] [address] PCP - General Family Medicine 04/26/19 Ira Orozco, PharmD [address] [place] [address] Pharmacist Internal Medicine 02/03/25 Janessa Fraga 11/23/24 documented as of this encounter
--- OUTSIDE RECORDS SUMMARY | 2025-02-06 09:40 | XMS_ITS | Encounter Summary ---
Author Organization [employer] Address [address] [facility] 7t [place] [address] Care Team Providers Care Collection Systems Modeler Name Role Phone Name, Boo FARLEY Primary Care Provider [phone] Ira Orozco PharmD Unavailable [phone] Reason for Visit * Reason Comments Med Refill Encounter Details Date Type Department Care Team (Late st Contact Info) Description 05/13/[address] [facility] [address] [place], [place] [phone] Name, MD Boo [address] [place], [place] [phone] Lumbar radiculopathy Social History Tobacco Use Types [...] 03/21/2025 11:00 AM EDT Medication Management [facility] [address] [place] [address] Ira Orozco, PharmD [address] [place] [address] 04/21/2025 10:30 AM EDT Clinical Support [facility] [address] [place] [address] Ame Love, GEM 05/02/2025 10:00 AM EDT Office Visit [facility] [address] [place] [address] Katlyn Vasquez, LESLEY [address] [place] [address] 05/16/2025 10:00 AM EDT Office Visit [facility] [address] [place] [address] Name, MD Boo [address] [place] [address] documented as of this encounter Goals Goal [...] documented as of this encounter Care Teams Collection Systems Modeler Relationship Specialty Start Date End Date Name, MD Boo [address] [place] [address] PCP - General Family Medicine 04/26/19 Ira Orozco PharmD [address] [place] [address] Pharmacist Internal Medicine 02/03/25 Janessa Fraga 11/23/24 documented as of this encounter
--- OUTSIDE RECORDS SUMMARY | 2025-02-06 09:40 | XMS_ITS | Encounter Summary ---
Author Organization [facility] Address [address] [place] [address] Care Team Providers Care Substation Operator Chief Name Role Phone Name, Boo FARLEY Primary [...] * Reason Onset Date Comments Faxed Order 07/31/2014 [facility] Encounter Details Date Type Department Care Team Description 07/31/2014 Telephone Adult Medicine [address] [address] Name, MD Boo Faxed Order ([facility] ) Social History Tobacco Use Types Packs/Day [...] encounter Miscellaneous Notes * Telephone Encounter - Chaparrita Smith - 08/26/2014 10:56 AM EDT Please review and fax back- 2 nd request [phone] * Telephone Encounter - Chaparrita Smith - 07/31/2014 1:12 PM EDT Please review the order for the face to face and fax back to [phone] documented in this encounter Plan of Treatment Not on file documented as of this encounter Visit Diagnoses Not on filedocumented in this encounter Care Teams Substation Operator Chief Relationship Specialty Start Date End Date Name, [...]
--- OUTSIDE RECORDS SUMMARY | 2025-02-06 09:40 | XMS_ITS | Encounter Summary ---
Author Organization [employer] Address [address] [facility] 7t [place] [address] Care Team Providers Care Bottle And Glass Inspector Name Role Phone Name, Boo FARLEY Primary Care Provider [phone] Ira Orozco PharmD Unavailable [phone] Reason for Visit * Reason Comments Med Refill Encounter Details Date Type Department Care Team ([facility] st Contact Info) Description 04/17/2024 Refill [facility] [address] [place], [place] [phone] Name, MD Boo [address] [place] [address] Chronic pain syndrome Social History Tobacco Use [...] Description 03/21/2025 11:00 AM EDT Medication Management [facility] MED[facility]INE [address] [place] [address] Ira Orozco, PharmD [address] [place] [address] 04/21/2025 10:30 AM EDT Clinical Support [facility] [address] [place] [address] Ame Love, GEM 05/02/2025 10:00 AM EDT Office Visit [facility] OPTOMETRY [address] [place] [address] Pedro, Katlyn, OD [address] [place] [address] 05/16/2025 10:00 AM EDT Office Visit [facility] [address] [place] [address] Name, MD Boo [address] [place] [address] documented as of this encounter Goals Goal [...] documented as of this encounter Care Teams Bottle And Glass Inspector Relationship Specialty Start Date End Date Name, MD Boo [address] [place], [place] [phone] PCP - General Family Medicine 04/26/19 Ira Orozco PharmD [address] [place] [address] Pharmacist Internal Medicine 02/03/25 Janessa Fraga 11/23/24 documented as of this encounter
--- OUTSIDE RECORDS SUMMARY | 2025-02-06 09:40 | XMS_ITS | Encounter Summary ---
Author Organization [facility] Address [address] [place] [address] Care Team Providers Care Diesel Technician Mechanic Name Role Phone Name, Boo FARLEY [...] Details Date Type Department Care Team Description 07/02/2014 Hospital Medical Records [address] [place] [address] Marcelle Luuqe MD Social History Tobacco Use Types Packs/Day [...] on filedocumented in this encounter Care Teams Diesel Technician Mechanic Relationship Specialty Start Date End Date [...]
--- OUTSIDE RECORDS SUMMARY | 2025-02-06 09:40 | XMS_ITS | Encounter Summary ---
Author Organization [facility] Address [address] [place] [address] Care Team Providers Care Ring Barker Operator Name Role Phone Name, Boo FARLEY [...] Details Date Type Department Care Team Description 10/11/2011 Case Advocate Report Medical Records [address] [place] [address] Renato Beebe MD Social History Tobacco Use Types Packs/Day [...] on filedocumented in this encounter Care Teams Ring Barker Operator Relationship Specialty Start Date End Date [...]
--- OUTSIDE RECORDS SUMMARY | 2025-02-06 09:40 | XMS_ITS | Encounter Summary ---
Author Organization [facility] Address [address] [place] [address] Care Team Providers Care Twist Maker Name Role Phone Lissy Kumari DO Primary [...] for Visit * Reason Onset Date Comments Medication 05/13/2016 Encounter Details Date Type Department Care Team Description 05/13/2016 Telephone Adult Medicine [address] [address] Lissy Kumari DO Medication Social History Tobacco Use Types Packs/Day Years [...] encounter Miscellaneous Notes * Telephone Encounter - Gabi Holley M.A. - 05/13/2016 11:36 AM EDT needed ICD 10 code on script Please sign * Telephone Encounter - Shauna Espinoza - 05/13/2016 9:54 AM EDT What is the name of the medication patient is having a problem with?: JOSE MICROLET LANCETS What is the problem?: hard copy script needed with ICD 10 code Is the patient calling about the problem? NO If the patient is not the caller who is? [facility] Is this a NEW medication?: YES How long has the patient been taking this medication? Who prescribed this medication for the patient? Lissy Roca Who is patients PCP?: Lissy Roca Payor: MEDICARE-[employer] / Plan: MEDICARE-[employer] / Product Type: MEDICARE [id number] documented in this encounter Plan of Treatment Not on file documented as of this encounter Visit Diagnoses Not on filedocumented in this encounter Care Teams Twist Maker Relationship Specialty Start Date End Date Lissy [...]
--- OUTSIDE RECORDS SUMMARY | 2025-02-06 09:40 | XMS_ITS | Encounter Summary ---
Author Organization [facility] Address [address] [place] [address] Care Team Providers Care Lumber Buyer Name Role Phone Name, Boo FARLEY Primary [...] * Reason Onset Date Comments Faxed Order 07/17/2014 Encounter Details Date Type Department Care Team Description 07/17/2014 Telephone Adult Medicine [address] [address] Name, MD Boo Faxed Order Social History [...] * Telephone Encounter - Chaparrita Smith - 08/06/2014 10:55 AM EDT [facility] and orders faxed to [phone] * Telephone Encounter - Alexandria Miles - 07/17/2014 10:39 AM EDT Faxed from [facility] please reivew and sign orders fax [phone] documented in this encounter Plan of Treatment Not on file documented as of this encounter Visit Diagnoses Not on filedocumented in this encounter Care Teams Lumber Buyer Relationship Specialty Start Date End Date Name, [...]
--- OUTSIDE RECORDS SUMMARY | 2025-02-06 09:40 | XMS_ITS | Encounter Summary ---
Author Organization [facility] Address [address] [place] [address] Care Team Providers Care Electrical And Instrumentation Manager Name Role Phone Name, Boo FARLEY [...] Details Date Type Department Care Team Description 08/19/2014 Hospital Medical Records [address] [place] [address] Michelle Baez DO Social History Tobacco Use [...] on filedocumented in this encounter Care Teams Electrical And Instrumentation Manager Relationship Specialty Start Date End Date [...]
--- OUTSIDE RECORDS SUMMARY | 2025-02-06 09:40 | XMS_ITS | Encounter Summary ---
Author Organization [facility] Address [address] [place] [address] Care Team Providers Care Fruit And Vegetable Classer Name Role Phone Name, Boo FARLEY Primary [...] Care Team Description 08/18/2014 Hospital Medical Records [address] [place] [address] Chapin Davenport Social History Tobacco Use Types Packs/Day Years [...] on filedocumented in this encounter Care Teams Fruit And Vegetable Classer Relationship Specialty Start Date End Date Boo Hastings MD PCP - General 03/26/07 08/23/15 Boo Hastings MD PCP - General Internal Medicine 08/24/15 11/16/15 Lissy Kumari DO PCP - General Internal Medicine 11/17/15 12/19/16 [facility], Pcp PCP - General Internal Medicine 12/20/16 07/01/18 Verna Wright MD PCP - General Internal Medicine 07/02/18 [facility], Pcp PCP - General Internal Medicine 07/15/19 07/20/21 Name, MD Boo PCP - General Internal Medicine 04/06/19 06/02/19 Name, MD Boo PCP - General Internal Medicine 06/03/19 07/14/19 Name, MD Boo PCP - General Internal Medicine 06/03/22 documented as of this encounter
--- OUTSIDE RECORDS SUMMARY | 2025-02-06 09:40 | XMS_ITS | Encounter Summary ---
Author Organization [employer] Address [address] [facility] 7t [place] [address] Care Team Providers Care Nicker Name Role Phone Name, Boo FARLEY Primary Care Provider [phone] Ira Orozco PharmD Unavailable [phone] Reason for Visit * Reason Onset Date Comments Nurse Triage 04/10/2024 Encounter Details Date Type Department Care Team ([facility] st Contact Info) Description 04/10/2024 Telephone [facility] [address] [place], [place] [phone] Name, MD Boo [address] [place], [place] [phone] Nurse Triage Social History Tobacco Use Types [...] encounter Miscellaneous Notes * Telephone Encounter - Monique Herbert - 04/10/2024 8:34 AM EDT Symptom: Asthma Attack - Caller Reports Outcome: Schedule a same-day appointment or talk to a nurse or provider today Reason: Caller denied all higher acuity questions The caller accepted this outcome documented in this encounter Plan of Treatment Upcoming Encounters Date Type Department Care Team (Late st Contact Info) Description 03/21/2025 11:00 AM EDT Medication Management [facility] [address] [place] [address] Ira Orozco, PharmD [address] [place] [address] 04/21/2025 10:30 AM EDT Clinical Support [facility] [address] [place] [address] Ame Love, GEM 05/02/2025 10:00 AM EDT Office Visit [facility] [address] [place] [address] Katlyn Vasquez, LESLEY [address] [place] [address] 05/16/2025 10:00 AM EDT Office Visit [facility] [address] [place] [address] Name, MD Boo [address] [place] [address] documented as of this encounter Goals Goal [...] documented as of this encounter Care Teams Nicker Relationship Specialty Start Date End Date Name, MD Boo [address] [place] [address] PCP - General Family Medicine 04/26/19 Ira Orozco PharmD [address] [place] [address] Pharmacist Internal Medicine 02/03/25 Janessa Fraga 11/23/24 documented as of this encounter
--- OUTSIDE RECORDS SUMMARY | 2025-02-06 09:40 | XMS_ITS | Clinical Summary ---
Author Organization [facility] Address [address] [place] [address] Care Team Providers Care Medical Services Assistant Name Role Phone Name, Boo FARLEY Primary Care Provider [phone] Surgical History Surgery Date Site/Laterality Comments CARPAL TUNNEL RELEASE 01/28/2004 Right PROCEDURE: HISTORICAL CARPAL TUNNEL REL; COMMENT: Dr Clayton KIDNEY STONE SURGERY PROCEDURE: NV NEPHROLITHOTOMY REMOVAL CALCULUS CHOLECYSTECTOMY 2011 PROCEDURE: HISTORICAL CHOLECYSTECTOMY; COMMENT: July 2012 CATARACT EXTRACTION PROCEDURE: HISTORICAL CATARACT REMOVAL; COMMENT: right FOOT SURGERY Bilateral PROCEDURE: HISTORICAL FOOT SURGERY BARIATRIC SURGERY PROCEDURE: NV LAPS GSTRC RSTRICTIV PX LONGITUDINAL GASTRECTOMY; COMMENT: Gastric sleeve HERNIA REPAIR 07/2017 PROCEDURE: HISTORICAL HERNIA REPAIR/ALEENA CARPAL TUNNEL RELEASE 09/26/2007 Left PROCEDURE: HISTORICAL CARPAL TUNNEL REL; COMMENT: Dr Clayton UPPER GASTROINTESTINAL ENDOSCOPY 08/27/2019 PROCEDURE: NV UPPER GI ENDOSCOPY PERFORMED; COMMENT: Normal Medical History Medical History Date Comments Pure hypercholesterolemia 03/07/2006 DX:Pur e hypercholesterolemia Glaucoma 02/06/2013 DX:Glaucoma Fibromyalgia 07/10/2018 DX:Fibromyalgia Opiate dependence ([facility]/HCC) 01/15/2019 DX:O piate dependence ([facility]); COMMENT: On suboxone Osteopenia 11/22/2007 DX:Osteopenia Carpal tunnel syndrome 12/16/2019 DX:Carpal tunnel syndrome; COMMENT: CTR Left 2006, CTR Right 2003, Microalbuminuria 05/27/2014 DX:Microalbumin uria DM (diabetes mellitus), 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/15/2019 DX:DM (diabetes mellitus ), type 2 with renal complications (HCC) DM (diabetes mellitus), type 2 with neurological complications (CMS/HCC) 04/18/2016 DX:DM (diabetes m ellitus), type 2 with neurological complications (HCC) Morbid obesity with BMI of 4 0.0-44.9, adult (CMS/HCC) 04/09/2019 DX:Morbid obesity with BMI o f 40.0-44.9, adult ([facility]) Osteoarthritis 03/27/2007 DX:Osteoarthriti s; COMMENT: Cervical, & Lumbosacral Spine,Thumb bases/CMC, Knees: R>L Previous CS and gel injections History of hepatitis C 03/07/2006 DX:Histor y of hepatitis C; COMMENT: Chronic Hepatitis C Tx Started 10/19/15 w/ Juan Aoni 90-400 mg. Take One Tab Daily for 12 Weeks SVR Achieved 05/12/16 In 1999 was on treatment for several months but did not respond to treatment?. We treated by Mallika Castillo. Chronic pain 06/16/2011 DX:Chronic pain COPD (chronic obstructive pu lmonary disease) ([facility]) 04/20/2012 DX:COPD (chronic obstructive pulmonary disease) ([facility]); COMMENT: chr asthmatic bronchitis Depressive disorder 06/18/2007 DX:Depressiv e disorder; COMMENT: F/u [facility] counseling Dr Jurado Essential hypertension, benign 03/27/2007 D X:Essential hypertension, benign Former smoker 06/05/2017 DX:Former smoker Migraine 11/19/2014 DX:Migraine Optic neuritis 03/24/2009 DX:Optic neuriti s; COMMENT: Right sided. No MS according to 2 different neurologist. Her eye doctor is at [facility]. 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 ([facility]) 06/05/2017 DX:Overlap syndrome of obs tructive sleep apnea and chronic obstructive pulmonary disease ([facility]) Polypharmacy 03/13/2015 DX:Polypharmacy Pulmonary nodule 06/05/2017 DX:Pulmonary no dule Status post laparoscopic sle aidan gastrectomy 06/12/2018 DX:Status post laparoscopic sleeve gastrectomy; COMMENT: 07/24 Weight gain 08/22/2008 DX:Weight gain Family History Medical History Relation Name Comments No Known Problems Daughter Arthritis Father [place] in his 50's, Stroke in his 50's No Known Problems Maternal Grandfather No Known Problems Maternal Grandmother Cataracts Mother Arthritis spina l involvement No Known Problems Other No Known Problems Paternal Grandfather No Known Problems Paternal Grandmother No Known Problems Sister Breast cancer Neg Hx Relation Name Status Comments Daughter Father Maternal Grandfather Maternal Grandmother Mother Alive Other Paternal Grandfather Paternal Grandmother Sister Social History Tobacco Use Types Packs/Day Years Used Date Smoking Tobacco: Former Cigarettes 0.5 38.3 0 1972 - 07/21/2010 Smokeless Tobacco: Never Alcohol Use Standard Drinks/Week Comments No 0 (1 standard drink = 0.6 oz pur e alcohol) Comments Unknown Sex and Gender Information Value Date Recorded Sex Assigned at Not on file Legal Sex Female 1:35 PM EST Gender Identity Not on file Sexual Orientation Not on file Obstetrics History Plan of Treatment Upcoming Encounters Date Type Department Care Team (Late st Contact Info) Description 04/21/2025 11:00 AM EDT Appointment Radiology Department - [address] [id number] Health Maintenance Due Date Last Done Comments Diabetes: Annual GFR (Glomerular Filtration Rate) 1959 Diabetes: Annual Foot Exam 1969 Diabetes: Annual Retina Eye Exam 1969 Zoster Vaccines (1 of 2) 2009 Pneumococcal Vaccine: 50+ Years (2 of 2 - PCV) 03/14/2017 03/14/2016 Pneumococcal Vaccine: Pediatrics (0 to 5 Years) and At-Risk Patients (6 to 64 Years) (2 of 2 - PCV) 03/14/2017 03/14/2016 RSV Immunization Adult Patients (1 - Risk 60-74 years 1-dose series) 2019 DTaP,Tdap,and Td Vaccines (2 - Td or Tdap) 01/15/2020 01/14/2010 Cervical Cancer Screening: Pap Smear 02/04/2022 02/04/2019 Cholesterol Screening (Lipid Panel) 10/15/2022 Colorectal Cancer Screening: Colonoscopy 10/15/2022 Depression Screening 10/15/2022 Hepatitis C Screening 10/15/2022 Osteoporosis Screening (Bone Density Screening) 10/15/2022 Social Influencers of Health Screening 10/15/2022 Diabetes: Annual Urine Albumin-Creatinine Ratio (uACR) 10/22/2022 Diabetes: Blood Sugar Control Test (HGBA1C) 10/22/2022 Hypertension/CHF/CAD Annual BMP Blood Test 10/22/2022 Falls Risk Assessment 2024 COVID-19 Vaccine ( season) 2024 Influenza Vaccine (Season Ended) 2025 07/17/2015, 08/13/2014, 07/17/2013, Additional history exists Breast Cancer Screening 04/08/2026 04/08/20, 04/08/2024, 03/24/2023, Additional history exists HIB Vaccines Aged Out [...] on patient's age to complete this topic MMR Vaccines Aged Out No longer eligi ble based on patient's age to complete this topic Meningococcal ACWY Vaccine Aged Out N o longer eligible based on patient's age to complete this topic Meningococcal B Vacine Aged Out No lo nger eligible based on patient's age to complete this topic RSV Immunization Patients Under 20 months Aged Out No longer eligible based on patient's age to complete this topic Varicella Vaccines Aged Out No longer eligible based on patient's age to complete this topic Procedures Procedure Name Priority Date/Time Associated Diagnosis Comments SCREENING MAMMOGRAPHY BI 2-VIEW BREAST INC CAD Routine 04/08/2024 11:00 AM EDT Encounter for screening mammogram for malignant neoplasm of breast PAP SMEAR Routine 02/04/2019 from Last 3 Months or Most Recently Relevant to Health Maintenance Results * SCREENING MAMMOGRAPHY BI 2-VIEW BREAST INC CAD (04/08/2024 11:00 AM EDT) Anatomical Region Laterality Modality Radiographic Cici ging 03/24/2023 11:0 7 AM EDT Narrative 04/08/2024 12:01 PM EDT This is a summary report. The complete report is available in the patient's medical record. If you cannot access the medical record, please contact the sending organization for a detailed fax or copy. Study: SCREENING MAMMOGRAPHY BI 2-VIEW BREAST INC CAD Technique: Bilateral full-field digital screening mammography is obtained and read in conjunction with computer aided detection. ??Tomosynthesis as well as 2D C-View imaging were obtained. Comparison: Comparison made to multiple prior, most recent March 24, 2023, and most remote February 19, 2015. Breast composition: There are scattered areas of fibroglandular density. Bilateral breasts: No significant masses, suspicious calcifications or other abnormalities are seen in either breast. IMPRESSION: Impression: Bilateral breasts: Negative, no specific mammographic evidence of malignancy. ??Normal interval follow-up is recommended in 12 months. BI-RADS: Category 1: Negative Procedure Note Akua Zurita MD - 09/30/2024 This is a summary report. The complete report is available in thepatient's medical record. If you cannot access the medical record, pleasecontact the sending organization for a detailed fax or copy. Study: SCREENING MAMMOGRAPHY BI 2-VIEW BREAST INC CAD Technique: Bilateral full-field digital screening mammography is obtainedand read in conjunction with computer aided detection. Tomosynthesis aswell as 2D C-View imaging were obtained. Comparison: Comparison made to multiple prior, most recent March 24, 2023,and most remote February 19, 2015. Breast composition: There are scattered areas of fibroglandular density. Bilateral breasts: No significant masses, suspicious calcifications orother abnormalities are seen in either breast. IMPRESSION: Impression: Bilateral breasts: Negative, no specific mammographic evidence ofmalignancy. Normal interval follow-up is recommended in 12 months. BI-RADS: Category 1: Negative Nazia Curiel SURVEY [facility]MAN IMG XR PROCEDURES Final Re sult * Pap smear (02/04/2019) 02/04/2019 Narrative HISTORICAL TESTING LAB RESULTING AGENCY - 02/06/2019 1:54 PM EDT [id number] THINPREP PAP, IMAGED: NEGATIVE FOR SQUAMOUS INTRAEPITHELIAL LESION AND MALIGNANCY . ATROPHY. TANIA KEY , YEIMI(ASCP) (CASE ELECTRONICALLY SIGNED 02 06 2019) ADEQUACY: SATISFACTORY ENDOCERVICAL/TRANSFORMATION ZONE COMPONENT PRESENT. SOURCE: THINPREP PAP HPV IF ASCUS, CERVICAL, IMAGED CLINICAL INFORMATION: HPV IF DIAGNOSIS OF ASCUS. MENOPAUSE, PAP HX NEG, Z12.4 us Vincenzo Fletcher MD LAB CYTOLOGY ORDERABLES Final Result HISTORICAL TESTING LAB RESULTING AGENCY from Last 3 Months or Most Recently Relevant to Health Maintenance Care Teams Medical Services Assistant Relationship Specialty Start Date End Date Name, MD Boo [address] [place], [place] PCP - General Internal Medicine 08/24/15
--- OUTSIDE RECORDS SUMMARY | 2025-02-06 09:40 | XMS_ITS | Encounter Summary ---
Author Organization [facility] Address [address] [place] [address] Care Team Providers Care Systems Software Specialist Name Role Phone Name, Boo FARLEY [...] Details Date Type Department Care Team Description 06/19/2014 Home Health Certification Medical Records [address] [place] [id number] Vna Social History Tobacco Use Types Packs/Day Years [...] on filedocumented in this encounter Care Teams Systems Software Specialist Relationship Specialty Start Date End Date Boo Hastings MD PCP - General 03/26/07 08/23/15 Boo Hastings MD PCP - General Internal Medicine 08/24/15 11/16/15 Lissy Kumari DO PCP - General Internal Medicine 11/17/15 12/19/16 [facility], Pcp PCP - General Internal Medicine 12/20/16 07/01/18 Verna Wright MD PCP - General Internal Medicine 07/02/18 [facility], Pcp PCP - General Internal Medicine 07/15/19 07/20/21 Name, MD Boo PCP - General Internal Medicine 04/06/19 06/02/19 Name, MD Boo PCP - General Internal Medicine 06/03/19 07/14/19 Name, MD Boo PCP - General Internal Medicine 06/03/22 documented as of this encounter
--- OUTSIDE RECORDS SUMMARY | 2025-02-06 09:40 | XMS_ITS | Encounter Summary ---
Author Organization [facility] Address [address] [place] [address] Care Team Providers Care Quick Print Operator Name Role Phone Name, Boo FARLEY [...] Details Date Type Department Care Team Description 05/24/2014 Hospital Medical Records [address] [place] [address] Amara Nguyen Np Social History Tobacco Use Types Packs/Day Years [...] on filedocumented in this encounter Care Teams Quick Print Operator Relationship Specialty Start Date End Date [...]
--- OUTSIDE RECORDS SUMMARY | 2025-02-06 09:40 | XMS_ITS | Encounter Summary ---
Author Organization [facility] Address [address] [place] [address] Care Team Providers Care Makeup Artist Name Role Phone Name, Boo FARLEY Primary [...] * Reason Onset Date Comments Faxed Order 06/30/2014 Encounter Details Date Type Department Care Team Description 06/30/2014 Telephone Adult [address] [address] Name, MD Boo Faxed Order Social History [...] Telephone Encounter - Ynes Ham M.A. - 07/04/2014 8:47 AM EDT Script on names desk * Telephone Encounter - Chaparrita Smith - 06/30/2014 3:18 PM EDT Sign and fax back to [facility] vna [phone] documented in this encounter Plan of Treatment Not on file documented as of this encounter Procedures Procedure Name Priority Date/Time Associated Diagnosis Comments BLOOD PRESSURE, [id number] Routine 07/04/2014 8:47 AM EDT BENIGN ESSENTIAL HYPERTENSION Type II or unspecified type diabetes mellitus without mention of complication, not stated as uncontrolled documented in this encounter Visit Diagnoses Diagnosis BENIGN ESSENTIAL HYPERTENSION Essential hypertension, benign Type II or unspecified type diabetes mellitus without mention of complication, not stated as uncontrolled documented in this encounter Care Teams Makeup Artist Relationship Specialty Start Date End Date Name, [...]
--- OUTSIDE RECORDS SUMMARY | 2025-02-06 09:40 | XMS_ITS | Encounter Summary ---
Author Organization [facility] Address [address] [place] [address] Care Team Providers Care Pinmaker Name Role Phone Name, Boo FARLEY Primary [...] Primary Care Provider Unavailabl e Name, Boo FRALEY Primary Care Provider Unavailabl e Encounter Details Date Type Department Care Team Description 04/21/2014 Business Doc Medical Records [address] [place] [id number] Abstract, Provider Social History Tobacco Use Types [...] on filedocumented in this encounter Care Teams Pinmaker Relationship Specialty Start Date End Date Boo Hastings MD PCP - General 03/26/07 08/23/15 Boo Hastings MD PCP - General Internal Medicine 08/24/15 11/16/15 Lissy Kumari DO PCP - General Internal Medicine 11/17/15 12/19/16 [facility], Pcp PCP - General Internal Medicine 12/20/16 07/01/18 Verna Wright MD PCP - General Internal Medicine 07/02/18 [facility], Pcp PCP - General Internal Medicine 07/15/19 07/20/21 Name, MD Boo PCP - General Internal Medicine 04/06/19 06/02/19 Name, MD Boo PCP - General Internal Medicine 06/03/19 07/14/19 Name, MD Boo PCP - General Internal Medicine 06/03/22 documented as of this encounter
--- OUTSIDE RECORDS SUMMARY | 2025-02-06 09:40 | XMS_ITS | Encounter Summary ---
Author Organization [facility] Address [address] [place] [address] Care Team Providers Care Bench Assembler Battery Name Role Phone Lissy Kumari DO Primary [...] * Reason Onset Date Comments refill request 05/23/2016 Encounter Details Date Type Department Care Team Description 05/23/2016 Refill Adult Medicine [address] [address] Lissy Kumari DO refill request Social History Tobacco Use Types [...] encounter Miscellaneous Notes * Telephone Encounter - Nicolasa Mabry L.P.N. - 05/25/2016 10:12 AM EDT Had to cancel her injection due to having surgery the previous week her injection was scheduled She is going to follow up with surgeon 05/31/16 and will ask when her injection can be scheduled Notified of this Message to Dr Obrien for FYI * Telephone Encounter - Kira Mills MD - 05/25/2016 9:26 AM EDT Per our last discussion, she was getting sedation from the flexeril. So I am only presribing 5mg qhs prn. She cancelled injections? She needs ffup if she will continue to ask medications from us in future * Telephone Encounter - Mary Wick M.A. - 05/24/2016 3:28 PM EDT Please review, not on patient med list, would you fill?? AYUSH 04/14/16 F/u apt none made at this time Last refill: not on med list Parcel Post Order Clerk 08/27/15 Contracted for Ambien and Oxycodone Component Value Date URINEOXYCOD POSITIVE 12/21/2015 URBENZO NEGATIVE 12/21/2015 URAMPHETAMIN NEGATIVE 12/21/2015 URMARIJUANA NEGATIVE 12/21/2015 UROPIATES NEGATIVE 12/21/2015 URBARBITUATE NEGATIVE 12/21/2015 URCOCAINE NEGATIVE 12/21/2015 METHADONE NONE DETECTED 09/24/2010 HYDROCODONE Negative 12/21/2015 * Telephone Encounter - Lissy Orozco DO - 05/24/2016 3:19 PM EDT I've never prescribed this * Telephone Encounter - Jorge Dumont - 05/23/2016 2:04 PM EDT Patient would like script to be: E-PRESCRIBED/FAXED TO PHARMACY WHEN WAS THE PATIENT'S LAST APPOINTMENT IN ADULT MEDICINE? 05.03.16 WHEN WAS THE LAST TIME THE PATIENT SAW THEIR PCP? Same as above Does patient have an upcoming appointment? Yes 07.19.16 (THE MEDICATION REQUESTED IS ON THE MED LIST ABOVE) All of the medications requested were on the CURRENT MEDS list Did you check the Pharmacy information above?: YES Patient wants: 30 -day supply Is this a mail order prescription request ? NO Patients current [place] carrier is: [place] / [place] / Product Type: MED[place]ARE [id number] documented in this encounter Plan of Treatment Not on file documented as of this encounter Visit Diagnoses Not on filedocumented in this encounter Care Teams Bench Assembler Battery Relationship Specialty Start Date End Date Lissy Kumari DO PCP - General Internal Medicine 11/17/15 12/19/16 [facility], Pcp PCP - General Internal Medicine 12/20/16 07/01/18 Verna Wright MD PCP - General Internal Medicine 07/02/18 [facility], Pcp PCP - General Internal Medicine 07/15/19 07/20/21 Boo Hastings MD PCP - General Internal Medicine 04/06/19 06/02/19 Boo Hastings MD PCP - General Internal Medicine 06/03/19 07/14/19 Boo Hastings MD PCP - General Internal Medicine 06/03/22 documented as of this encounter
--- OUTSIDE RECORDS SUMMARY | 2025-02-06 09:41 | XMS_ITS | Encounter Summary ---
Author Organization [facility] Address [address] [place] [address] Care Team Providers Care Portable Grinding Machine Operator Name Role Phone Verna Wright MD Primary Care Provider Un available [facility], Pcp Primary Care Provider Unavailabl e Name, Boo FARLEY Primary Care Provider Unavailabl e Name, Boo FARLEY Primary Care Provider Unavailabl e Name, Boo FARLEY Primary Care Provider Unavailabl e Encounter Details Date Type Department Care Team Description 07/19/2018 Transfer Records Medical Records [address] [place] [address] Abstract, Provider Social History Tobacco Use Types [...] on filedocumented in this encounter Care Teams Portable Grinding Machine Operator Relationship Specialty Start Date End Date Verna [...]
--- OUTSIDE RECORDS SUMMARY | 2025-02-06 09:41 | XMS_ITS | Encounter Summary ---
Author Organization [facility] Address [address] [place] [address] Care Team Providers Care Healthcare Specialist Name Role Phone Name, Boo FARLEY [...] Details Date Type Department Care Team Description 12/04/2014 Can Intake Worker Report Medical Records [address] [place] [address] Moises Hinkle MD Social History Tobacco Use Types Packs/Day [...] on filedocumented in this encounter Care Teams Healthcare Specialist Relationship Specialty Start Date End Date [...]
--- OUTSIDE RECORDS SUMMARY | 2025-02-06 09:41 | XMS_ITS | Encounter Summary ---
Author Organization [facility] Address [address] [place] [address] Care Team Providers Care Grinding Mill Operator Name Role Phone Community, Pcp Primary Care Provider Unavaillouann e Verna Wright MD Primary Care Provider Un available [facility], Pcp Primary Care Provider Unavailabl e Name, Boo FARLEY Primary Care Provider Unavailabl e Name, Boo FARLEY Primary Care Provider Unavailabl e Name, Boo FARLEY Primary Care Provider Unavailabl e Encounter Details Date Type Department Care Team Description 03/16/2018 Transfer Records Medical Records [address] [place] [address] Abstract, Provider Social History Tobacco Use Types [...] on filedocumented in this encounter Care Teams Grinding Mill Operator Relationship Specialty Start Date End Date Community, [...]
--- OUTSIDE RECORDS SUMMARY | 2025-02-06 09:41 | XMS_ITS | Encounter Summary ---
Author Organization [facility] Address [address] [place] [address] Care Team Providers Care Process Development Engineer Name Role Phone Name, Boo FARLEY [...] * Reason Onset Date Comments Faxed Order 11/26/2014 Encounter Details Date Type Department Care Team Description 11/26/2014 Telephone Adult Medicine [address] [address] Name, MD Boo Faxed Order Social History [...] * Telephone Encounter - Danya Murrell - 11/26/2014 3:28 PM EST Physician's interim order for Dr Hastings's signature documented in this encounter Plan of Treatment Not on file documented as of this encounter Visit Diagnoses Not on filedocumented in this encounter Care Teams Process Development Engineer Relationship Specialty Start Date End Date [...]
--- OUTSIDE RECORDS SUMMARY | 2025-02-06 09:41 | XMS_ITS | Encounter Summary ---
Author Organization [employer] Address [address] [facility] [address] [place] [address] Care Team Providers Care Tractor Expert Name Role Phone Name, Boo FARLEY Primary Care Provider Ira Orozco PharmD Unavailable [phone] Reason for Visit * Reason Onset Date Comments FYI 11/19/2024 Encounter Details Date Type Department Care Team ([facility] st Contact Info) Description 11/19/2024 Telephone [facility] MEDICINE [address] [place], [place] [phone] Name, MD Boo [address] [place], [place] [phone] FYI Social History Tobacco Use Types Packs/Day Years [...] Telephone Encounter - Joanne Euceda RN - 11/19/2024 2:58 PM EST Noted. * Telephone Encounter - Christen Hurtado - 11/19/2024 2:49 PM EST Tc from Christine with [facility] , notifying patient will be getting correction services starting today 11/19/2024 . If any questions please contact Christine [phone] documented in this encounter Plan of Treatment Upcoming Encounters Date Type Department Care Team (Late st Contact Info) Description 03/21/2025 11:00 AM EDT Medication Management [facility] MEDICINE [address] [place] [address] Ira Orozco, PharmD [address] [place] [address] 04/21/2025 10:30 AM EDT Clinical Support [facility] [address] [facility] [place] [address] Ame Love, RN 05/02/2025 10:00 AM EDT Office Visit [facility] OPTOMETRY [address] [place] [address] Katlyn Vasquez, OD [address] [place] [address] 05/16/2025 10:00 AM EDT Office Visit [facility] [address] [facility] [place] [address] [address] MD [address] [facility] [place] documented as of this encounter Goals Goal [...] documented as of this encounter Care Teams Tractor Expert Relationship Specialty Start Date End Date [place] [address] PCP - General Family Medicine 04/26/[address] [facility] [place] [address] Pharmacist Internal Medicine 02/03/25 Janessa Fraga 11/23/24 documented as of this encounter
--- OUTSIDE RECORDS SUMMARY | 2025-02-06 09:41 | XMS_ITS | Encounter Summary ---
Author Organization [employer] Address [address] [facility] [address] [place] [address] Care Team Providers Care Coroner'S Juror Name Role Phone Name, Boo FARLEY Primary Care Provider [phone] Ira Orozco PharmD Unavailable [phone] Encounter Details Date Type Department Care Team ([facility] Contact Info) Description 01/17/2025 Telephone [facility] MEDICINE [address] [place], [place] [phone] Name, MD Boo [address] [place] [address] Social History Tobacco Use Types Packs/Day Years [...] Medication Management [facility] MEDICINE [address] [place] [address] Ira Orozco, LesleyD [address] [place] [address] 04/21/2025 10:30 AM EDT Clinical Support [facility] MEDICINE [address] [place] [address] Ame Love, [place] 05/02/2025 10:00 AM EDT Office Visit [facility] OPTOMETRY [address] [place] [address] Katlyn Vasquez, LESLEY 230 [place] [address] 05/16/2025 10:00 AM EDT Office Visit [facility] MEDICINE [address] [place] [address] Name, MD Boo [address] [place] [address] documented as of this encounter Goals Goal Patient Goal Type Associated Problems Recent Progress Patient-Stated? Author Blood Pressure < 140/90 Blood Pressure 118/76( 025 1:43 PM EDT) No Moe Johnson documented as of this encounter Visit Diagnoses Not on filedocumented in this encounter Additional Health Concerns Assessment Noted Time PHQ-9 Depression Total Score: 024 11:21 AM EDT documented as of this encounter Care Teams Coroner'S Juror Relationship Specialty Start Date End Date Name, MD Boo [address] [place] [address] PCP - General Family Medicine 04/26/19 Ira Orozco PharmD 230 [place] [address] Pharmacist Internal Medicine 02/03/25 Janessa Fraga 11/23/24 documented as of this encounter
--- OUTSIDE RECORDS SUMMARY | 2025-02-06 09:41 | XMS_ITS | Encounter Summary ---
Author Organization [facility] Address [address] [place] [address] Care Team Providers Care Pediatric Care Coordinator Name Role Phone Name, Boo FARLEY [...] for Visit * Reason Onset Date Comments other 12/09/2014 Encounter Details Date Type Department Care Team Description 12/09/2014 Telephone Adult Medicine [address] [address] Name, MD Boo other Social History Tobacco Use Types Packs/Day Years [...] encounter Miscellaneous Notes * Telephone Encounter - Shauna Espinoza - 12/09/2014 12:24 PM EST Pt would like her candy polisher's services increased, she states that her health has changed. She says dr foreman needs to fill out an application for services and send to [employer]. Any questions please call at [phone], thank you documented in this encounter Plan of Treatment Not on file documented as of this encounter Visit Diagnoses Not on filedocumented in this encounter Care Teams Pediatric Care Coordinator Relationship Specialty Start Date End Date Name, [...]
--- OUTSIDE RECORDS SUMMARY | 2025-02-06 09:41 | XMS_ITS | Encounter Summary ---
Author Organization [employer] Address 75 [facility] 7t [place] [address] Care Team Providers Care Radio Communications Mechanician Name Role Phone Name, Boo FARLEY Primary Care Provider [phone] Ira Orozco PharmD Unavailable [phone] Reason for Visit * Reason Onset Date Comments Appointment Request 01/06/2025 Encounter Details Date Type Department Care Team ([facility] Contact Info) Description 01/06/2025 Telephone [facility] MEDICINE [address] [place], [place] [phone] Name, MD Boo 230 [place], [place] [phone] Appointment Request Social History Tobacco Use Types Packs/Day [...] encounter Miscellaneous Notes * Telephone Encounter - Manpreet Humphries - 01/06/2025 8:38 AM EST Tc from pt requesting to r/s Apt from 01/06/25. Conatatc pt at [phone] documented in this encounter Plan of Treatment Upcoming Encounters Date Type Department Care Team (Late st Contact Info) Description 03/21/2025 11:00 AM EDT Medication Management [facility] MEDICINE [address] [place] [address] Ira Orozco, LesleyD [address] [place] [address] 04/21/2025 10:30 AM EDT Clinical Support [facility] MEDICINE [address] [place] [address] Ame Love RN 05/02/2025 10:00 AM EDT Office Visit [facility] OPTOMETRY [address] [place] [address] Katlyn Vasquez, OD 230 [place] [address] 05/16/2025 10:00 AM EDT Office Visit [facility] MEDICINE [address] [place] [address] Name, MD Boo [address] [place] [address] documented as of this encounter Goals Goal [...] documented as of this encounter Care Teams Radio Communications Mechanician Relationship Specialty Start Date End Date Name, [place] [address] PCP - General Family Medicine 04/26/19 Ira Orozco, Nelida [address] [place] [address] Pharmacist Internal Medicine 02/03/25 Janessa Fraga 11/23/24 documented as of this encounter
--- OUTSIDE RECORDS SUMMARY | 2025-02-06 09:41 | XMS_ITS | Encounter Summary ---
Author Organization [employer] Address 75 [facility] 7t [place] [address] Care Team Providers Care Breast Splitter Name Role Phone Name, Boo FARLEY Primary Care Provider [phone] Ira Orozco PharmD Unavailable [phone] Reason for Visit * Reason Onset Date Comments Medication Question 09/20/2024 Encounter Details Date Type Department Care Team ([facility] Contact Info) Description 09/20/2024 Telephone [facility] MEDICINE [address] [place], [place] [phone] Name, MD Boo 230 [place], [place] [phone] Medication Question Social History Tobacco Use Types Packs/Day Years [...] t he electric, gas, oil or water [employer] threatened to shut off services in your [...] * Telephone Encounter - Manpreet Humphries - 09/20/2024 11:33 AM EST Tc from pt requesting that med lidocaine (Lidoderm) 5 % patch not be genetic. Contact pt at [phone] documented in this encounter Plan of Treatment Upcoming Encounters Date Type Department Care Team (Late st Contact Info) Description 03/21/2025 11:00 AM EDT Medication Management [facility] MEDICINE [address] [place] [address] Ira Orozco, LesleyD 230 [place] [address] 04/21/2025 10:30 AM EDT Clinical Support [facility] MEDICINE [address] [place] [address] Ame Love RN 05/02/2025 10:00 AM EDT Office Visit [facility] OPTOMETRY [address] [place] [address] Katlyn Vasquez, OD 230 [place] [address] 05/16/2025 10:00 AM EDT Office Visit [facility] MEDICINE [address] [place] [address] Name, MD Boo [address] [place] [address] documented as of this encounter Goals Goal [...] documented as of this encounter Care Teams Breast Splitter Relationship Specialty Start Date End Date Name, [place] [address] PCP - General Family Medicine 04/26/19 Ira Orozco, Nelida [address] [place] [address] Pharmacist Internal Medicine 02/03/25 Janessa Fraga 11/23/24 documented as of this encounter
--- OUTSIDE RECORDS SUMMARY | 2025-02-06 09:41 | XMS_ITS | Encounter Summary ---
Author Organization [employer] Address 75 [facility] 7t [place] [address] Care Team Providers Care Waistline Joiner Lockstitch Name Role Phone Name, Boo FARLEY Primary Care Provider [phone] Ira Orozco PharmD Unavailable [phone] Reason for Visit * Reason Onset Date Comments PA 12/17/2024 Encounter Details Date Type Department Care Team ([facility] st Contact Info) Description 12/17/2024 Telephone [facility] MEDICINE 230 [place], [place] [phone] Name, MD Boo 230 [place], [place] [phone] PA Social History Tobacco Use Types Packs/Day Years [...] encounter Miscellaneous Notes * Telephone Encounter - [place] Mckinney - 12/26/2024 2:42 PM EST Please see message below and advise if agree with PA. Thank you * Telephone Encounter - Manpreet Humphries - 12/17/2024 2:39 PM EST TC from pt requesting a PA for medication lidocaine (Lidoderm) 5 % patch Contact pt at [phone] documented in this encounter Plan of Treatment Upcoming Encounters Date Type Department Care Team (Late st Contact Info) Description 03/21/2025 11:00 AM EDT Medication Management [facility] MEDICINE [address] [place] [address] Ira Orozco, PharmD 230 [place], [place] [phone] 04/21/2025 10:30 AM EDT Clinical Support [facility] MEDICINE [address] [place] [address] Ame Love, RN 05/02/2025 10:00 AM EDT Office Visit [facility] OPTOMETRY [address] [place] [address] Katlyn Vasquez, OD 230 [place] [address] 05/16/2025 10:00 AM EDT Office Visit [facility] MEDICINE [address] [place] [address] Name, MD Boo [address] [place] [address] documented as of this encounter Goals Goal [...] documented as of this encounter Care Teams Waistline Joiner Lockstitch Relationship Specialty Start Date End Date [place] [address] PCP - General Family Medicine 04/26/19 Ira Orozco, Nelida [address] [place] [address] Pharmacist Internal Medicine 02/03/25 Janessa Fraga 11/23/24 documented as of this encounter
--- OUTSIDE RECORDS SUMMARY | 2025-02-06 09:41 | XMS_ITS | Encounter Summary ---
Author Organization [facility] Address [address] [place] [address] Care Team Providers Care Die Repair Machinist Name Role Phone Name, Boo FARLEY Primary [...] for Visit * Reason Onset Date Comments Blood Sugar Elevated 09/15/2014 Encounter Details Date Type Department Care Team Description 09/15/2014 Telephone Adult Medicine [address] [address] Name, MD Boo Blood Sugar Elevated Social History Tobacco Use Types Packs/Day Years [...] Miscellaneous Notes * Telephone Encounter - Boo Hastings MD - 09/15/2014 12:16 PM EST Noted. I recommend to double the dose of glyburide and avoid sweets and soda. At some point she should come in with her glucose meter. * Telephone Encounter - Hilary Palacio R.N. - 09/15/2014 12:03 PM EST Pt started gluburide 2.5 with breakfast on , BS is still over 300 after breakfast . BP is improved. * Telephone Encounter - Prachi Sahu - 09/15/2014 11:29 AM EST EBOLA: Effective 08/13/14 If patient complains of a temperature greater than 101.5 ask if they have traveled to [place], [place], [place] or [place] or been in contact with anyone who has. Document responses in this message and send to triage. Symptoms patient is presenting: patient called to notify Dr Hastings that her blood sugar today is 382. How long has patient had these symptoms?: today PCP: Boo Hastings Payor: MEDICARE-[employer] / Plan[place] / Product Type: MEDICARE [id number] documented in this encounter Plan of Treatment Not on file documented as of this encounter Visit Diagnoses Not on filedocumented in this encounter Care Teams Die Repair Machinist Relationship Specialty Start Date End Date Boo [...]
--- OUTSIDE RECORDS SUMMARY | 2025-02-06 09:41 | XMS_ITS | Encounter Summary ---
Author Organization [facility] Address [address] [place] [address] Care Team Providers Care Supervisor Hydrochloric Area Name Role Phone Verna Wright MD Primary Care Provider Un available Community, Pcp Primary Care Provider Unavailabl e Name, Boo FARLEY Primary Care Provider Unavailabl e Name, Boo FARLEY Primary Care Provider Unavailabl e Name, Boo FARLEY Primary Care Provider Unavailabl e Reason for Referral * EXTERNAL (Priority) - Authorized/Booked Specialty Diagnoses / Procedures Referred By Maria Antonia ash Referred To Contact Neurology Procedures REFERRAL TO NEUROLOGY Verna Wright MD [address] [place] [id number] [place] [address] [facility] [address], [address] [place] [address] Referral ID Status Reason Start Date Expiration Date V isits Requested Visits Authorized SEE NOTE Authorized/B ooked 07/31/2018 10/31/2018 1 1 Encounter Details Date Type Department Care Team Description 07/31/2018 Orders Only Adult Medicine [address] [address] Verna Wright MD Social History Tobacco Use Types Packs/Day [...] on filedocumented in this encounter Care Teams Supervisor Hydrochloric Area Relationship Specialty Start Date End Date Verna [...]
--- OUTSIDE RECORDS SUMMARY | 2025-02-06 09:41 | XMS_ITS | Encounter Summary ---
Author Organization [facility] Address [address] [place] [address] Care Team Providers Care Learning Disabilities Resource Teacher Name Role Phone Name, Boo FARLEY Primary [...] Details Date Type Department Care Team Description 01/30/2015 Hospital Medical Records [address] [place] [address] Amara Nguyen Np Social History Tobacco Use [...] on filedocumented in this encounter Care Teams Learning Disabilities Resource Teacher Relationship Specialty Start Date End Date Boo [...]
--- OUTSIDE RECORDS SUMMARY | 2025-02-06 09:41 | XMS_ITS | Encounter Summary ---
Author Organization [facility] Address [address] [place] [address] Care Team Providers Care Warehouse Incentive Selector Name Role Phone Name, Boo FARLEY Primary [...] Details Date Type Department Care Team Description 11/09/2014 Hospital Medical Records [address] [place] [address] Leobardo Solo MD Social History Tobacco Use Types Packs/Day [...] on filedocumented in this encounter Care Teams Warehouse Incentive Selector Relationship Specialty Start Date End Date Boo [...]
--- OUTSIDE RECORDS SUMMARY | 2025-02-06 09:41 | XMS_ITS | Encounter Summary ---
Author Organization [employer] Address [address] [facility] 7t [place] [address] Care Team Providers Care Evp Managing Director Name Role Phone Name, Boo FARLEY Primary Care Provider [phone] Ira Orozco PharmD Unavailable [phone] Encounter Details Date Type Department Care Team (Latest Contact Info) Description 02/03/2025 Travel Social History Tobacco Use Types Packs/Day Years [...] 03/21/2025 11:00 AM EDT Medication Management [facility] MEDICINE [address] [place] [address] Ira Orozco, PharmD [address] [place] [address] 04/21/2025 10:30 AM EDT Clinical Support [address] [address] Ame Love RN 05/02/2025 10:00 AM EDT Office Visit [facility] OPTOMETRY [address] [place] [address] Katlyn Vasquez, OD [address] [place] [address] 05/16/2025 10:00 AM EDT Office Visit [facility] MEDICINE [address] [place] [address] Name, MD Boo 230 [place] [address] documented as of this encounter Goals Goal [...] documented as of this encounter Care Teams Evp Managing Director Relationship Specialty Start Date End Date Name, MD oBo [address] [place] [address] PCP - General Family Medicine 04/26/19 Ira Orozco PharmD [address] [place] [address] Pharmacist Internal Medicine 02/03/25 Janessa Fraga 11/23/24 documented as of this encounter
--- OUTSIDE RECORDS SUMMARY | 2025-02-06 09:41 | XMS_ITS | Clinical Summary ---
Author Organization [facility] Address [address] [place] [address] Care Team Providers Care Steel Heater Name Role Phone Unavailable Primary Care Provider Unavailabl e Allergies Active Allergy Reactions Criticality Noted Date Comments Alendronate Other (See Comments) Medium 08/06/2021 Pain and swelling all over Medications Medication Sig Dispensed Refills Start Date End Date Status fluticasone-vilanter ol (Breo Ellipta) 100-25 MCG/INH inhaler 1 inhalation by Inhaled route daily. 0 Active venlafaxine (EFFEXOR-XR) 150 MG 24 hr capsule Take 150 mg by mouth daily. 0 Active atorvastatin (LIPITOR) tablet 20 mg Take 20 mg by mouth daily. 0 Active montelukast (SINGULAIR) 10 MG tablet Take 10 mg by mouth every night at bedtime. 0 Active pregabalin (LYRICA) capsule 100 mg Take 225 mg by mouth 2 (two) times a day. 0 Active calcium acetate (PHOSLO) 667 MG capsule Take 1,334 mg by mouth 3 (three) times a day with meals. 0 Active Multiple Vitamins-Minerals (BARIATRIC MULTIVITAMINS/IRON PO) Take by mouth. 0 Active zolpidem (Ambien) 10 MG tablet Take 10 mg by mouth every night at bedtime as needed for sleep. 0 Active Meloxicam 15 MG TBDP Take 15 mg by mouth daily. 0 Active acetaminophen (TYLENOL) 325 MG tablet Take 650 mg by mouth every 6 (six) hours as needed for pain. 0 Active baclofen (LIORESAL) 10 MG tablet Take 10 mg by mouth 2 (two) times a day. 0 Active losartan (COZAAR) tablet 50 mg Take 50 mg by mouth daily. 0 Active amitriptyline (ELAVIL) tablet 50 mg Take 100 mg by mouth every night at bedtime. 0 Active Family History Medical History Relation Name Comments Asthma Father Diabetes Father Kidney disease Father No Sig Med Hx Mother Relation Name Status Comments Father Mother Alive Social History Tobacco Use Types Packs/Day Years Used Date Smoking Tobacco: Former Cigarettes Q uit: 08/06/2000 Smokeless Tobacco: Never Alcohol Use Standard Drinks/Week Comments Not Currently 0 (1 standard drink = 0.6 oz pur e alcohol) Sex and Gender Information Value Date Recorded Sex Assigned at Not on file Gender Identity Not on file Sexual Orientation Not on file Job Start Date Occupation Industry Not on file Not on file Not on file Last Filed Vital Signs Vital Sign Reading Time Taken Comments Blood Pressure - - Pulse - - Temperature - - Respiratory Rate - - Oxygen Saturation - - Inhaled Oxygen Concentration - - Weight 69.9 kg (154 lb) 08/06/2021 10:42 AM EDT Height 149.9 cm (4' 11 ) 08/06/2021 10:42 AM EDT Body Mass Index 31.1 08/06/2021 10:42 AM EDT Plan of Treatment Health Maintenance Due Date Last Done Comments Hepatitis C Screening 1959 COVID-19 Vaccine (#1) 1959 Depression Screening 1971 Preventative Health Evaluation 1977 DTap / Tdap / Td (1 - Tdap) 1978 Cervical Cancer Screening (P ap Smear) 1980 Colon Cancer Screening (Colonoscopy) 2004 Breast Cancer Screening (Mammogram) 2009 Shingrix-Zoster Vaccine (1 of 2) 2009 Fall Risk Assessment 2024 Osteoporosis Screening (DEXA Scan) 2024 Pneumococcal Vaccine (1 of 1 - PCV) 2024 Influenza Vaccine (#1) 2024 RSV Adult > 60+ Yrs or Pregn ant (1 - 1-dose 75+ series) 2034 Hepatitis B Vaccines Aged Out No long er eligible based on patient's age to complete this topic Pneumococcal Vaccine Aged Out No long er eligible based on patient's age to complete this topic RSV Ped < 20 months Aged Out No longe r eligible based on patient's age to complete this topic
--- OUTSIDE RECORDS SUMMARY | 2025-02-06 09:41 | XMS_ITS | Encounter Summary ---
Author Organization [facility] Address [address] [place] [address] Care Team Providers Care In Home Aide Name Role Phone Name, Boo FARLEY [...] Details Date Type Department Care Team Description 05/30/2012 Rivet Sticker Report Medical Records [address] [place] [address] Abstract, Provider Social History Tobacco Use Types [...] on filedocumented in this encounter Care Teams In Home Aide Relationship Specialty Start Date End Date Boo [...]
--- OUTSIDE RECORDS SUMMARY | 2025-02-06 09:41 | XMS_ITS | Encounter Summary ---
Author Organization [facility] Address [address] [place] [address] Care Team Providers Care Library Circulation Clerk Name Role Phone Community, Pcp Primary Care Provider Unavaillouann e Verna Wright MD Primary Care Provider Un available Community, Pcp Primary Care Provider Unavailabl e Name, Boo FARLEY Primary Care Provider Unavailabl e Name, Boo FARLEY Primary Care Provider Unavailabl e Name, Boo FARLEY Primary Care Provider Unavailabl e Encounter Details Date Type Department Care Team Description 02/27/2017 Business Doc Medical Records [address] [place] [address] Abstract, Provider Social History Tobacco Use Types [...] on filedocumented in this encounter Care Teams Library Circulation Clerk Relationship Specialty Start Date End Date Community, [...]
--- OUTSIDE RECORDS SUMMARY | 2025-02-06 09:41 | XMS_ITS | Encounter Summary ---
Author Organization [facility] Address [address] [place] [address] Care Team Providers Care Parts Counterperson Name Role Phone Verna Wright MD Primary Care Provider Un available Community, Pcp Primary Care Provider Unavailabl e Name, Boo FARLEY Primary Care Provider Unavailabl e Name, Boo FARLEY Primary Care Provider Unavailabl e Name, Boo FARLEY Primary Care Provider Unavailabl e Encounter Details Date Type Department Care Team Description 07/17/2018 Orders Only Adult [address] [address] Verna Wright MD Social History Tobacco Use [...] on filedocumented in this encounter Care Teams Parts Counterperson Relationship Specialty Start Date End Date Verna [...]
--- OUTSIDE RECORDS SUMMARY | 2025-02-06 09:41 | XMS_ITS | Encounter Summary ---
Author Organization [employer] Address [address] [facility] [address] 7t [place] [address] Care Team Providers Care Shearing Shed Hand Name Role Phone Name, Boo FARLEY Primary Care Provider [phone] Ira Orozco PharmD Unavailable [phone] Encounter Details Date Type Department Care Team ([facility] Contact Info) Description 11/21/2024 Telephone [facility] MEDICINE [address] [place], [place] [phone] Name, MD Boo [address] [place] [address] Social History Tobacco Use Types Packs/Day Years [...] 11:00 AM EDT Medication Management [facility] MEDICINE [address] [place] [address] Ira Orozco, LesleyD [address] [place] [address] 04/21/2025 10:30 AM EDT Clinical Support [facility] MEDICINE [address] [place] [address] Ame Love, GEM 05/02/2025 10:00 AM EDT Office Visit [facility] OPTOMETRY [address] [place] [address] Katlyn Vasquez, LESLEY [address] [place] [address] 05/16/2025 10:00 AM EDT Office Visit [facility] MEDICINE [address] [place] [address] Name, MD Boo [address] [place] [address] documented as of this encounter Goals Goal [...] documented as of this encounter Care Teams Shearing Shed Hand Relationship Specialty Start Date End Date Name, MD Boo [address] [place] [address] PCP - General Family Medicine 04/26/19 Ira Orozco PharmD [address] [place] [address] Pharmacist Internal Medicine 02/03/25 Janessa Fraga 11/23/24 documented as of this encounter
--- OUTSIDE RECORDS SUMMARY | 2025-02-06 09:41 | XMS_ITS | Encounter Summary ---
Author Organization [employer] Address [address] [facility] 7t [place] [address] Care Team Providers Care Credit Card Interviewer Name Role Phone Name, Boo FARLEY Primary Care Provider [phone] Ira Orozco PharmD Unavailable [phone] Reason for Visit * Reason Onset Date Comments Med Refill 01/14/2025 Encounter Details Date Type Department Care Team (Late st Contact Info) Description 01/14/2025 Telephone [facility] MEDICINE [address] [place], [place] [id number] Name, MD Boo [address] [place], [place] [id number] Med Refill Social History Tobacco Use Types [...] Telephone Encounter - Charity Hardy LPN - 01/14/2025 11:19 AM EDT Medication was sent to [facility] today 01/14/25. * Telephone Encounter - Christen Hurtado - 01/14/2025 11:12 AM EDT TC from pt requesting medication refill. Medications needing refill : pregabalin (Lyrica) 150 MG capsule ibuprofen (IBU) 800 MG tablet To be sent to: [facility] documented in this encounter Plan of Treatment Upcoming Encounters Date Type Department Care Team (Late st Contact Info) Description 03/21/2025 11:00 AM EDT Medication Management [facility] MEDICINE [address] [place] [address] Ira Orozco, PharmD [address] [facility] [place] [address] 04/21/2025 10:30 AM EDT Clinical Support [facility] MEDICINE [address] [facility] [place] [address] Ame Love, RN 05/02/2025 10:00 AM EDT Office Visit [facility] OPTOMETRY [address] [place] [address] PedroKatlyn santos, OD [address] [place] [address] 05/16/2025 10:00 AM EDT Office Visit [facility] MEDICINE [address] [facility] [place] [address] NameBoo MD [address] [place] [address] documented as of this encounter Goals Goal [...] documented as of this encounter Care Teams Credit Card Interviewer Relationship Specialty Start Date End Date NameBoo MD Chely [facility] [place] [address] PCP - General Family Medicine 04/26/19 Ira Orozco, PharmD [facility] [place] [address] Pharmacist Internal Medicine 02/03/25 Janessa Fraga 11/23/24 documented as of this encounter
--- OUTSIDE RECORDS SUMMARY | 2025-02-06 09:41 | XMS_ITS | Encounter Summary ---
Author Organization [facility] Address [address] [place] [address] Care Team Providers Care Alarm Investigator Name Role Phone Boo Hastings MD Primary Care Provider Unavailabl e Name, Boo [...] Details Date Type Department Care Team Description 10/07/2014 Telephone Adult [address] [address] Boo Hastings MD Social History Tobacco Use Types Packs/Day [...] encounter Miscellaneous Notes * Telephone Encounter - Daisy Rene - 10/07/2014 12:12 PM EST documented in this encounter Plan of Treatment Not on file documented as of this encounter Visit Diagnoses Not on filedocumented in this encounter Care Teams Alarm Investigator Relationship Specialty Start Date End Date Boo [...]
--- OUTSIDE RECORDS SUMMARY | 2025-02-06 09:41 | XMS_ITS | Encounter Summary ---
Author Organization [employer] Address [address] [facility] 7t [place] [address] Care Team Providers Care Banana Carrier Name Role Phone Name, Boo FARLEY Primary Care Provider [phone] Ira Orozco PharmD Unavailable [phone] Reason for Visit * Reason Comments Med Refill Encounter Details Date Type Department Care Team ([facility] st Contact Info) Description 02/01/2025 Refill [facility] MEDICINE [address] [place], [place] [phone] Name, MD Boo [address] [place] [address] Social History Tobacco Use Types Packs/Day Years [...] Description 03/21/2025 11:00 AM EDT Medication Management [facility] MEDICINE [address] [place] [phone] Ira Orozco, PharmD [address] [place] [address] 04/21/2025 10:30 AM EDT Clinical Support [facility] MEDICINE [address] [place] [address] Ame Love, GEM 05/02/2025 10:00 AM EDT Office Visit [facility] OPTOMETRY [address] [place] [address] Katlyn Vasquez, OD [address] [place] [address] 05/16/2025 10:00 AM EDT Office Visit [facility] MEDICINE [address] [place] [phone] Name, MD Boo [address] [place] [address] documented as of this encounter Goals Goal [...] documented as of this encounter Care Teams Banana Carrier Relationship Specialty Start Date End Date Name, [place] [address] PCP - General Family Medicine 04/26/19 Ira Orozco PharmD [address] [place] [address] Pharmacist Internal Medicine 02/03/25 Janessa Fraga 11/23/24 documented as of this encounter
[2025-02-06 14:27] LABS: Alanine Aminotransferase 15 U/L (0-31); Albumin Level 4.2 g/dL (3.5-5.0); Alkaline Phosphatase 73 U/L (39-117); Anion Gap 8 (12-20); Aspartate Amino Transferase 23 U/L (5-31); Bilirubin Direct < 0.2 mg/dL (0.0-0.5); Bilirubin Total 0.2 mg/dL (0.0-1.0); Blood Urea Nitrogen 12 mg/dL (9-16); Calcium 9.3 mg/dL (8.4-10.2); Carbon Dioxide 25 mmol/L (22-29); Chloride 112 mmol/L (96-108); Cholesterol 147 mg/dL (<200); Estimated Glomerular Filt Rate > 60; Glucose Random 86 mg/dL (60-115); HDL Cholesterol 58 mg/dL (>40); LDL Cholesterol Calculated 79 mg/dL (<100); Potassium 4.1 mmol/L (3.3-5.1); Sodium 141 mmol/L (135-145); Total Protein 6.7 g/dL (6.5-8.0); Triglycerides 52 mg/dL (<150)
[2025-02-06 14:38] LABS: Creatinine Urine 73.35 mg/dL; Microalbum/Creatinine Ratio Ur 13.6 ug/mg cr (<30)
== END 2025-02-06 09:17 | disposition home or self-care (01) ==
LOC: HO.CHCLDS 09:16
PROVIDERS: Visit Provider Internal Medicine Geriatric Medicine
DX: E78.00 Pure hypercholesterolemia, unspecified (principal); I10 Essential (primary) hypertension
CPT/HCPCS: 36415; 80048; 80061; 80076; 82043; 82570

== ENCOUNTER 2025-05-02 12:48 | Outpatient (AMB) | payer OTHER, SELFPAY ==
[2025-05-02 13:18] VITALS: BP 111/67; PULSE 73; O2SAT 98; BMI 30.5
--- NOTE | 2025-05-02 13:18 | A.OFFVIS_ITS ---
Vital Signs 05/02/25 13:18 Height 4 ft 9 in Weight 141 lb BMI 30.5 BP 111/67 Blood Pressure Location Lt brachial Position Sitting Pulse 73 Pulse Source Pulse Oximeter Pulse Oximetry (%) 98 Oxygen Delivery Method Room Air Intake Visit Reasons: Dyspnea Allergies alendronate sodium (From FOSAMAX) Allergy (Mild, Verified 05/02/25 13:23) HIVES atorvastatin (Lipitor) Allergy (Unknown, Verified 05/02/25 13:23) Hives HPI HPI Dyspnea: Details: 65-year-old lady, former 35 pack years smoker, now uses marijuana, quit tobacco 2011, followed for pulmonary nodules and? asthma/COPD.? She has been using Treley, theophylline, and albuterol MDI with good control of her underlying symptoms. She denies acute exacerbations. [facility] Medical History Diverticulosis Tubular adenoma BMI 36.0-36.9,adult BMI 37.0-37.9, adult Morbid obesity due to excess calories Sleep apnea Migraines Arthritis Insomnia Depression Personal history of solitary pulmonary nodule Asthma Type 2 diabetes mellitus Fibromyalgia Surgical History Hx of colonoscopy History of foot surgery History of right cataract surgery History of bilateral carpal tunnel release Hx laparoscopic cholecystectomy History of sleeve gastrectomy Family History Father No problems noted. Mother Diabetes Brother No problems noted. Brother No problems noted. Brother No problems noted. Sister No problems noted. Sister No problems noted. Sister No problems noted. Daughter No problems noted. Social History Household Members: None Housing: Apartment Do you presently have visiting nurse or other home services: Yes ([employer]) Unable to assess alcohol history related to: Unknown Alcohol intake: never Patient Tobacco Use Status: Former Tobacco user Substance Use Type: Marijuana service: No Review of Systems Const Denies daytime sleepiness, Denies excessive sweating, Denies fatigue, Denies fever(s), Denies lethargy, Denies malaise, Denies night sweats, Denies snoring and Denies weight loss Eyes Denies blurry vision and Denies itchy eyes ENT Denies nasal congestion, Denies post nasal drip, Denies sinus pain, Denies sinus pressure and Denies other ( Thrush) Card Denies chest pain, Denies pedal edema, Denies dyspnea, Denies orthopnea and Denies paroxysmal nocturnal dyspnea Resp Denies cough, Denies hemoptysis, Denies excessive phlegm production, Denies dyspnea, Denies snoring and Denies wheezing GI Denies abdominal pain and Denies heartburn Musc Denies myalgias, Denies arthralgias and Denies joint swelling Skin/Breast Denies rash Neuro Denies memory loss and Denies seizure-like activity Psych Denies abnormal sleep pattern, Denies anxiety and Denies memory loss Endo Denies excessive sweating, Denies fatigue and Denies heat intolerance Pete/Lymph Denies easy bruising Aller/Immun Denies itchy eyes, Denies seasonal rhinorrhea and Denies wheezing Physical Exam Vital Signs: Last Vital Signs Pulse 73 05/02/25 13:18 BP 111/67 05/02/25 13:18 Pulse Ox 98 05/02/25 13:18 Oxygen Delivery Method Room Air 05/02/25 13:18 BMI result Body Mass Index 30.5 Const General: no acute distress and alert Nutritional Appearance: not obese Orientation/consciousness: Other orientation findings ( oriented) HEENT Head: Yes atraumatic Eyes General: appearance normal, both eyes and all related structures Sclerae: sclerae normal EOM: EOMs intact bilaterally Neck Neck: Yes supple Lymphatic: no lymphadenopathy noted Resp Effort & Inspection: normal respiratory effort and no use of accessory muscles Auscultation: clear to auscultation bilaterally Cardio Rate: regular rate Rhythm: regular rhythm Heart sounds: no gallops, no murmurs and no rubs Skin General skin exam: other ( warm) Extrem General: No clubbing, No cyanosis and No edema Assessment & Plan Assessment & Plan (1) Asthma-COPD overlap syndrome: Code(s): J44.9 - Chronic obstructive pulmonary disease, unspecified Category: Medical Plan: Well controlled on trilogy, duo nebs, and albuterol MDI. Continue current regimen. (2) Personal history of nicotine dependence: Code(s): Z87.891 - Personal history of nicotine dependence Category: Medical Plan: Continue with lung cancer screening, next in November of 2025. Ordered. Orders: Referrals Lung Cancer Screening Referral Z87.891 - Personal history of nicotine dependence Medications: Refilled Trelegy Ellipta 200-62.5-25 mcg (abjrirulxab-wgbavssnp-gtwssjma) 1 inh inhalation DAILY 1 ea 6RF 30 days NS Coding Level of Care Code Est Pt Level 4 (48106) Diagnoses Asthma-COPD overlap syndrome J44.9 Personal history of nicotine dependence Z87.891
--- OUTSIDE RECORDS SUMMARY | 2025-05-02 13:25 | XMS_ITS | Encounter Summary ---
Author Organization [facility] Address [address] [place] [address] Care Team Providers Care Excel Vba Developer Name Role Phone Name, Boo FARLEY [...] Details Date Type Department Care Team Description 06/21/2012 Hospital Medical Records [address] [place] [address] Constantino Beth MD Social History Tobacco Use Types Packs/Day [...] on filedocumented in this encounter Care Teams Excel Vba Developer Relationship Specialty Start Date End Date Boo [...]
== END 2025-05-02 13:36 | disposition home or self-care (01) ==
LOC: HO.HPS 12:50
PROVIDERS: PCP Internal Medicine Geriatric Medicine; Visit Provider Internal Medicine Pulmonary Disease
DX: J44.9 Chronic obstructive pulmonary disease, unspecified (principal); Z87.891 Personal history of nicotine dependence
CPT/HCPCS: 99214

== ENCOUNTER → 2025-05-02 12:48 | Outpatient (BNVA) | payer OTHER, SELFPAY | PROVIDERS: PCP Internal Medicine Geriatric Medicine; Visit Provider Internal Medicine Pulmonary Disease | DX: R91.8 Other nonspecific abnormal finding of lung field (principal); J44.89 Other specified chronic obstructive pulmonary disease; Z87.891 Personal history of nicotine dependence | CPT/HCPCS: 99212 ==

== ENCOUNTER 2025-05-07 10:32 | Outpatient (REF) | payer OTHER, SELFPAY ==
--- OUTSIDE RECORDS SUMMARY | 2025-05-07 11:13 | XMS_ITS | Encounter Summary ---
Author Organization [facility] Address [address] [place] [address] Care Team Providers Care Tower Excavator Operator Name Role Phone Name, Boo FARLEY [...] Team Description 06/21/2012 Hospital Medical Records [address] [place] [address] Constantino Beth MD Social History Tobacco Use [...] on filedocumented in this encounter Care Teams Tower Excavator Operator Relationship Specialty Start Date End Date [...]
--- OUTSIDE RECORDS SUMMARY | 2025-05-07 11:13 | XMS_ITS | Clinical Summary ---
Author Organization [facility] Address [address] [place] [address] Care Team Providers Care Audit Reviewer Name Role Phone Unavailable Primary Care Provider [...] Tdap / Td (1 - Tdap) 1978 Colon Cancer Screening (Colonoscopy) 2004 Breast Cancer Screening (Mammogram) 2009 Shingrix-Zoster Vaccine (1 of 2) 2009 Fall Risk Assessment 2024 Osteoporosis Screening (DEXA Scan) 2024 Pneumococcal Vaccine (1 of 1 - PCV) 2024 Influenza Vaccine (Season Ended) 2025 RSV Adult > 60+ Yrs or Pregn ant (1 - 1-dose 75+ series) 2034 Hepatitis B Vaccines Aged Out No long er eligible based on patient's age to complete this topic RSV Ped < 20 months Aged Out No longe r eligible based on patient's age to complete this topic
--- OUTSIDE RECORDS SUMMARY | 2025-05-07 11:13 | XMS_ITS | Clinical Summary ---
Author Organization [address] Address [address] [place] [phone] Phone Care Team Providers Care Desk Attendant Name Role Phone Name, Boo FARLEY Primary Care Provider [phone] Surgical History Surgery Date Site/Laterality Comments CARPAL TUNNEL RELEASE 01/28/2004 Right PROCEDURE: HISTORICAL CARPAL TUNNEL REL; COMMENT: Dr Clayton KIDNEY STONE SURGERY PROCEDURE: GA NEPHROLITHOTOMY REMOVAL CALCULUS CHOLECYSTECTOMY 2011 PROCEDURE: HISTORICAL CHOLECYSTECTOMY; COMMENT: July 2012 CATARACT EXTRACTION PROCEDURE: HISTORICAL CATARACT REMOVAL; COMMENT: right FOOT SURGERY Bilateral PROCEDURE: HISTORICAL FOOT SURGERY BARIATRIC SURGERY PROCEDURE: GA LAPS GSTRC RSTRICTIV PX LONGITUDINAL GASTRECTOMY; COMMENT: Gastric sleeve HERNIA REPAIR 07/2017 PROCEDURE: HISTORICAL HERNIA REPAIR/ALEENA CARPAL TUNNEL RELEASE 09/26/2007 Left PROCEDURE: HISTORICAL CARPAL TUNNEL REL; COMMENT: Dr Clayton UPPER GASTROINTESTINAL ENDOSCOPY 08/27/2019 PROCEDURE: GA UPPER GI ENDOSCOPY PERFORMED; COMMENT: Normal Medical History Medical History Date Comments Pure hypercholesterolemia 03/07/2006 DX:Pur e hypercholesterolemia Glaucoma 02/06/2013 DX:Glaucoma Fibromyalgia 07/10/2018 DX:Fibromyalgia Opiate dependence ([facility] V 24, CMS/[facility] V28) 01/15/2019 DX:Opiate dependence ([facility]); COMMENT: On suboxone Osteopenia 11/22/2007 DX:Osteopenia Carpal tunnel syndrome 12/16/2019 DX:Carpal tunnel syndrome; COMMENT: CTR Left 2006, CTR Right 2003, Microalbuminuria 05/27/2014 DX:Microalbumin uria DM (diabetes mellitus), type 2 with renal complications (CMS/HCC V24, CMS/HCC V28) 01/15/2019 DX:DM (diabetes mellitus), t ype 2 with renal complications (HCC) DM (diabetes mellitus), type 2 with neurological complications (CMS/HCC V24, CMS/[facility] V28) 04/18/2016 DX:DM (diabetes mellitus), t ype 2 with neurological complications (HCC) Morbid obesity with BMI of 4 0.0-44.9, adult ([facility] V24, [facility] V28) 04/09/2019 DX:Morbid obesity wit h BMI of 40.0-44.9, adult ([facility]) Osteoarthritis 03/27/2007 DX:Osteoarthriti s; COMMENT: Cervical, & Lumbosacral Spine,Thumb bases/CMC, Knees: R>L Previous CS and gel injections History of hepatitis C 03/07/2006 DX:Histor y of hepatitis C; COMMENT: Chronic Hepatitis C Tx Started 10/19/15 w/ Harvoni 90-400 mg. Take One Tab Daily for 12 Weeks SVR Achieved 05/12/16 In 1999 was on treatment for several months but did not respond to treatment?. We treated by Mallika Castillo. Chronic pain 06/16/2011 DX:Chronic pain COPD (chronic obstructive pu lmonary disease) ([facility] V24, [facility] V28) 04/20/2012 DX:COPD (chronic o bstructive pulmonary disease) ([facility]); COMMENT: chr asthmatic bronchitis Depressive disorder 06/18/2007 DX:Depressiv e disorder; COMMENT: F/u [facility] counseling Dr Jurado Essential hypertension, benign 03/27/2007 D X:Essential hypertension, benign Former smoker 06/05/2017 DX:Former smoker Migraine 11/19/2014 DX:Migraine Optic neuritis 03/24/2009 DX:Optic neuriti s; COMMENT: Right sided. No MS according to 2 different neurologist. Her eye doctor is at [facility]. 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 ([facility] V24, [facility] V28) 06/05/2017 DX:Overlap syndrome of obstr uctive sleep apnea and chronic obstructive pulmonary disease (HCC) Polypharmacy 03/13/2015 DX:Polypharmacy Pulmonary nodule 06/05/2017 DX:Pulmonary no dule Status post laparoscopic sle aidan gastrectomy 06/12/2018 DX:Status post laparoscopic sleeve gastrectomy; COMMENT: 07/24 Weight gain 08/22/2008 DX:Weight gain Family History Medical History Relation Name Comments No Known Problems Daughter Arthritis Father DC in his 50's, Stroke in his 50's [...] on file Obstetrics History Plan of Treatment Health Maintenance Due Date Last Done Comments Diabetes: Annual GFR (Glomerular Filtration Rate) 1959 Diabetes: Annual Foot Exam 1969 Diabetes: Annual Retina Eye Exam 1969 Hepatitis A Vaccines (1 of 2 - Risk 2-dose series) 1978 Zoster Vaccines (1 of 2) 2009 Pneumococcal Vaccine: 50+ Years (2 of 2 - PCV) 03/14/2017 03/14/2016 RSV Immunization Adult Patients (1 - Risk 60-74 years 1-dose series) 2019 DTaP,Tdap,and Td Vaccines (2 - Td or Tdap) 01/15/2020 01/14/2010 Cholesterol Screening (Lipid Panel) 10/15/2022 Colorectal Cancer Screening: Colonoscopy 10/15/2022 Depression Screening 10/15/2022 Hepatitis C Screening 10/15/2022 Medicare Annual Wellness Visit 10/15/2022 Osteoporosis Screening (Bone Density Screening) 10/15/2022 Social Influencers of Health Screening 10/15/2022 Diabetes: Annual Urine Albumin-Creatinine Ratio (uACR) 10/22/2022 Diabetes: Blood Sugar Control Test (HGBA1C) 10/22/2022 Hypertension/CHF/CAD Annual BMP Blood Test 10/22/2022 Falls Risk Assessment 2024 COVID-19 Vaccine ( season) 2024 Influenza Vaccine (Season Ended) 2025 07/17/2015, 08/13/2014, 07/17/2013, Additional history exists Breast Cancer Screening 04/08/2026 04/08/20 24, 04/08/2024, 03/24/2023, Additional history exists HIB Vaccines [...] age to complete this topic Meningococcal B Vaccine Aged Out No l onger eligible based on patient's age to complete [...] screening mammogram for malignant neoplasm of breast from Last 3 Months or Most Recently [...] in conjunction with computer aided detection. Tomosynthesis as well as 2D C-View imaging were obtained. Comparison: Comparison made to multiple prior, most recent March 24, 2023, and most remote February 19, 2015. Breast composition: There are scattered areas of fibroglandular density. Bilateral breasts: No significant masses, suspicious calcifications or other abnormalities are seen in either breast. IMPRESSION: Impression: Bilateral breasts: Negative, no specific mammographic evidence of malignancy. Normal interval follow-up is recommended in 12 [...] 12 months. BI-RADS: Category 1: Negative Nazia Villanuevaon FOOD [employer]NER IMG XR PROCEDURES Final Re sult from Last 3 Months or Most Recently Relevant to Health Maintenance Insurance [employer] Member Subscriber Plan / Payer (Ef fective 2024-Present) Name:Juana Lord Relation to Subscriber:Self Name:Juana Lord Payer ID:[id number] Group ID:[id number] Type:Not on file Address: [place] [address] [address] [id number] Care Teams Desk Attendant Relationship Specialty Start Date End Date Name, MD Boo [address] [place] [address] PCP - General Internal Medicine 08/24/15
--- OUTSIDE RECORDS SUMMARY | 2025-05-07 11:13 | XMS_ITS | Clinical Summary ---
Author Organization [employer] Address [address] [facility] [address] [place] [address] Care Team Providers Care Ip Counsel Name Role Phone Name, Boo FARLEY Primary Care Provider [phone] Ira Orozco PharmD Unavailable [phone] Allergies Active Allergy Reactions Criticality Noted [...] PUFF BY MOUTH EVERY DAY 023 Active zolpidem (Ambien) 5 MG tablet TAKE 1 TABLET BY MOUTH AT BEDTIME NEEDED IF YOU AWAKEN IN THE NIGHT 023 Active naloxone (Narcan) 4 mg/0.1 mL nasal sprayIndications :Chronic pain syndrome Administer 1 spray (4 mg) into affected nostril(s) if needed for opioid reversal. 2 each 2 024 Active Multiple Vitamin (Multivitamin) tablet TAKE ONE TABLET EVERY MORNING 90 tablet 3 024 Active estradiol (Estrace) 0.1 MG/GM vaginal cream Insert 1 g vaginally x 14 days, then use 1 g vaginally twice weekly ongoing after that 42.5 g Active Additional Information Patient not taking.Reported on 04/29/2025 hydrOXYzine HCl (Atarax) 25 MG tabletIndication s:Anxiety TAKE ONE TABLET EVERY TWELVE HOURS NEEDED FOR ITCHING OR FOR ANXIETY 28 tablet Active theophylline ER (Uniphyl) 400 MG 24 hr tablet Take 1 tablet by mouth at bedtime. Active montelukast (Singulair) 10 MG tabletIndication s:Moderate persistent asthma without complication TAKE ONE TABLET EVERY EVENING 90 tablet 1 Active bisacodyl (Dulcolax) 5 MG EC tabletIndication s:Constipation, unspecified constipation type Take 1 tablet (5 mg) by mouth if needed each day for constipation. Do not crush, chew, or split. 30 tablet 2025 Active polyethylene glycol, PEG, 3350 (MiraLax) 17 GM/SCOOP powder Take 17 g by mouth Once per day. 527 g 025 2025 Active FREESTYLE LITE test stripIndications :Type 2 diabetes mellitus without complication, without long-term current use of insulin ([facility]) Use to test blood sugar once times daily 100 each 025 2025 Active Blood Glucose Monitoring Suppl (FreeStyle [employer] [place]) w/Device kitIndications:T ype 2 diabetes mellitus without complication, without long-term current use of insulin ([facility]) Use to test blood sugar once times daily 1 kit 025 Active amLODIPine (Norvasc) 5 MG tablet TAKE ONE TABLET EVERY MORNING 30 tablet 11 025 Active venlafaxine XR (Effexor XR) 150 MG 24 hr capsule Take 150 mg by mouth in the morning. 025 Active topiramate 50 MG tablet TAKE ONE TABLET IN THE MORNING AND EVENING 60 tablet 5 025 Active omega-3 (fish oil) 1000 MG capsule Take 1 capsule by mouth in the morning. OTC Active SUMAtriptan (Imitrex) 100 MG tabletIndication s:Migraine without status migrainosus, not intractable, unspecified migraine type TAKE 1 TABLET BY MOUTH AT ONSET OF MIGRAINE. MAY REPEAT ONCE AFTER 2 HOURS IF NEEDED 9 tablet 2 025 Active cholecalciferol (Vitamin D-3) 1.25 MG (38419 UT) capsule Take 50,000 Units by mouth 1 (one) time per week. 025 Active Diclofenac Sodium 1 % gelIndications:F ibromyalgia,Acut e pain of right shoulder APPLY 2 GRAMS TOPICALLY IF NEEDED IN THE MORNING AND AT BEDTIME (MUSCLE PAIN). 100 g 3 025 Active ibuprofen 800 MG tabletIndication s:Lumbar radiculopathy TAKE 1 TABLET BY MOUTH EVERY 8 HOURS NEEDED FOR MILD PAIN 30 tablet 025 Active lidocaine (Lidoderm) 5 % patchIndications :Chronic pain syndrome APPLY 1 PATCH TO SKIN. LEAVE ON FOR 12 HOURS, THEN OFF FOR 12 HOURS DIRECTED. 30 patch 5 025 Active pregabalin (Lyrica) 150 MG capsuleIndicatio ns:Lumbar radiculopathy Take 1 capsule (150 mg) by mouth 2 times daily. TAKE ONE CAPSULE TWICE DAILY IN THE MORNING AND AT BEDTIME 60 capsule 025 Active oxyCODONE-acetam inophen (Percocet) 5-325 MG tabletIndication s:Chronic right shoulder pain,Lumbar radiculopathy,Ch ronic pain syndrome Take 1 tablet by mouth every 8 (eight) hours if needed for severe pain for up to 28 days. 84 tablet 025 2024 Active albuterol (2.5 MG/3ML) 0.083% nebulizer solutionIndicati ons:Chronic obstructive pulmonary disease, unspecified (CMS/HCC) INHALE ONE AMPULE USING A NEBULIZER FOUR TIMES DAILY 90 mL 1 025 Active omeprazole (PriLOSEC) [address] capsule TAKE ONE CAPSULE EVERY MORNING BEFORE BREAKFAST. DO NOT BREAK, CRUSH, DISSOLVE OR CHEW 30 capsule 025 Active amitriptyline (Elavil) 25 MG tablet TAKE ONE TABLET EVERY NIGHT AT BEDTIME 30 tablet 1 025 Active ezetimibe (Zetia) 10 MG tablet TAKE ONE TABLET EVERY MORNING 30 tablet 11 025 Active Alcohol Swabs (Alcohol Prep) 70 % padsIndications: Type 2 diabetes mellitus without complication, without long-term current use of insulin ([facility]) Use to test blood sugar once daily 100 each Active Easy Touch Lancets 33G/Twist miscIndications: Type 2 diabetes mellitus without complication, without long-term current use of insulin ([facility]) Use to test blood sugar once daily 100 each Active Acetaminophen Extra Strength 500 MG tablet TAKE ONE TABLET BY MOUTH EVERY 8 HOURS NEEDED MILD PAIN 90 tablet Active albuterol (2.5 MG/3ML) 0.083% nebulizer solutionIndicati ons:Chronic obstructive pulmonary disease, unspecified ([facility]) INHALE ONE AMPULE USING A NEBULIZER FOUR TIMES DAILY 360 mL 1 024 2024 Discontinued(R eorder (will not trigger notification to Pharmacy)) docusate sodium (Colace) 100 MG capsule Take 1 capsule (100 mg) by mouth at bedtime. 90 capsule 1 024 2024 Discontinued(M ed list cleanup (will not trigger notification to Pharmacy)) ezetimibe (Zetia) 10 MG tablet Take 1 tablet (10 mg) by mouth Once per day. 30 tablet 024 2024 Discontinued omeprazole (PriLOSEC) [address] capsule Take 1 capsule by mouth before breakfast. 024 2024 Discontinued Lancets miscIndications: Type 2 diabetes mellitus without complication, without long-term current use of insulin ([facility]) Use to test blood sugar once times daily 100 each 025 2024 Discontinued Alcohol Swabs 70 % padsIndications: Type 2 diabetes mellitus without complication, without long-term current use of insulin ([facility]) Use to test blood sugar once times daily 100 each 025 2024 Discontinued lidocaine-priloc danni (Emla) 2.5-2.5 % cream APPLY TO THE AFFECTED AREA(S) ONCE DAILY DIRECTED 30 g 1 025 2024 Discontinued(R eorder (will not trigger notification to Pharmacy)) acetaminophen (Tylenol) 500 MG tablet TAKE 1 TABLET BY MOUTH EVERY 8 HOURS NEEDED FOR MILD PAIN 90 tablet 025 2024 Discontinued(R eorder (will not trigger notification to Pharmacy)) amitriptyline (Elavil) 25 MG tablet TAKE ONE TABLET EVERY NIGHT AT BEDTIME 30 tablet 1 025 2024 Discontinued pregabalin (Lyrica) 150 MG capsuleIndicatio ns:Lumbar radiculopathy TAKE ONE CAPSULE TWICE DAILY IN THE MORNING AND AT BEDTIME 60 capsule 025 2024 Discontinued(R eorder (will not trigger notification to Pharmacy)) lidocaine (Lidoderm) 5 % patchIndications :Chronic pain syndrome APPLY 1 PATCH TO SKIN. LEAVE ON FOR 12 HOURS, THEN OFF FOR 12 HOURS DIRECTED. 30 patch 5 025 2024 Discontinued(R eorder (will not trigger notification to Pharmacy)) oxyCODONE-acetam inophen (Percocet) 5-325 MG tabletIndication s:Chronic right shoulder pain,Lumbar radiculopathy,Ch ronic pain syndrome Take 1 tablet by mouth every 8 (eight) hours if needed for severe pain for up to 28 days. 84 tablet 025 2024 Discontinued(R eorder (will not trigger notification to Pharmacy)) ibuprofen 800 MG tabletIndication s:Lumbar radiculopathy Take 1 tablet (800 mg) by mouth every 8 (eight) hours if needed for mild pain. 30 tablet 025 2024 Discontinued(R eorder (will not trigger notification to Pharmacy)) acetaminophen (Tylenol) 500 MG tablet TAKE 1 TABLET BY MOUTH EVERY 8 HOURS NEEDED FOR MILD PAIN 90 tablet 025 2024 Discontinued oxyCODONE-acetam inophen (Percocet) 5-325 MG tabletIndication s:Chronic right shoulder pain,Lumbar radiculopathy,Ch ronic pain syndrome Take 1 tablet by mouth every 8 (eight) hours if needed for severe pain for up to 28 days. Do not start before April 15, 2025. 84 tablet 025 2024 Discontinued(R eorder (will not trigger notification to Pharmacy)) lidocaine-priloc danni (Emla) 2.5-2.5 % cream Apply topically 1 (one) time for 1 dose. 30 g 1 025 2024 Active Problems Problem Noted Date Diagnosed Date Long-term current use of opiate analgesic 2024 Hospital discharge follow-up 11/29/2024 Assessment & Plan [...] Her eye doctor is at [facility]. Osteopenia 11/22/2007 Depressive disorder 06/18/2007 Overview (05/22/2023): F/u [facility] counseling Dr Jurado Assessment & Plan (11/29/2024 [...] Encounters Date Type Department Care Team Description 05/05/2025 Telephone [facility] [address] [place] [address] Name, MD Boo Med Refill 05/02/2025 10:00 AM EDT Office Visit [facility] [address] [place] [address] Pedro, Katlyn, OD Optic neuropathy, right (Primary Dx); Optic nerve asymmetry, right 05/02/2025 Travel 04/29/2025 Telephone [facility] [address] [place] [address] Maki Borrego, GEM 04/29/2025 Travel 04/26/2025 Refill [facility] [address] [place] [address] Boo Hastings MD Type 2 diabetes mellitus without complication, without long-term current use of insulin ([facility]) 04/23/2025 Telephone [facility] [address] [place] [address] Boo Hastings MD Durable Medical Equipment 04/21/2025 10:30 AM EDT Clinical Support [facility] [address] [place] [address] Ame Love RN Long-term current use of opiate analgesic (Primary Dx) 04/21/2025 Travel 04/18/2025 Telephone [facility] [address] [place] [phone] Boo Hastings MD Medication Question 04/18/2025 Refill [facility] [address] [place] [address] Boo Hastings MD 04/17/2025 Refill [facility] [address] [place] [address] Boo Hastings MD Chronic obstructive pulmonary disease, unspecified ([facility]) 04/15/2025 Telephone [facility] [address] [place] [phone] Boo Hastings MD Appointment Request 04/14/2025 Refill [facility] [address] [place] [address] Boo Hastings MD Chronic pain syndrome; Lumbar radiculopathy 04/14/2025 Refill [facility] [address] [place] [address] Boo Hastings MD Chronic right shoulder pain; Lumbar radiculopathy; Chronic pain syndrome 04/12/2025 Refill [facility] [address] [place] [address] Boo Hastings MD Lumbar radiculopathy 04/10/2025 Refill [facility] [address] [place] [address] Boo Hastings MD Lumbar radiculopathy 04/10/2025 Refill [facility] [address] [place] [address] Boo Hastings MD Chronic right shoulder pain; Lumbar radiculopathy; Chronic pain syndrome 04/10/2025 Telephone [facility] [address] [place] [address] Boo Hastings MD Medication Question 03/24/2025 Refill [facility] [address] [place] [address] Boo Hastings MD Fibromyalgia; Acute pain of right shoulder 03/18/2025 Refill [facility] [address] [place] [address] Boo Hastings MD Lumbar radiculopathy 03/17/2025 Telephone [facility] [address] [place] [phone] Boo Hastings MD Med Refill 03/17/2025 Telephone [facility] [address] [place] [phone] Boo Hastings MD Medication Question; FYI 03/17/2025 Refill [facility] [address] [place] [phone] Boo Hastings MD Chronic right shoulder pain; Lumbar radiculopathy; Chronic pain syndrome 03/11/2025 Telephone [facility] [address] [place] [phone] Boo Hastings MD Med Refill 03/11/2025 Telephone [facility] [address] [place] [phone] Boo Hastings MD Nurse Triage 03/11/2025 Refill [facility] [address] [place] [phone] Boo Hastings MD Lumbar radiculopathy; Chronic pain syndrome 02/28/2025 Refill [facility] [address] [place] [phone] Boo Hastings MD 02/22/2025 Refill [facility] [address] [place] [address] [place], [place], [facility] Migraine without status migrainosus, not intractable, unspecified migraine type 02/14/2025 Refill [facility] [address] [facility] [place] [address] Name, MD Boo 02/14/2025 Refill [facility] [address] [facility] [place] [address] Name, MD Boo Chronic right shoulder pain; Lumbar radiculopathy; Chronic pain syndrome 02/10/2025 Refill [facility] [address] [facility] [place] [address] Name, MD Boo Lumbar radiculopathy 02/09/2025 Refill [facility] [address] [facility] [place] [address] Name, MD Boo 02/06/2025 Orders Only [facility] [address] [facility] [place] [address] Name, MD Boo from Last 3 Months Immunizations Immunization Administration Dates Next Due Influenza injectable quadriv alent IIV4 with preservative 07/25/2023,01/01/2018,08/29/2016 Influenza injectable quadriv alent preservative free 09/28/2021,10/20/2020,11/26/2019 Influenza, IIV3, injectable 07/17/2015,1 ,07/17/2013,07/24,08/17/2011,09/19/2010,10/12/2009 ,08/22/2008,09/14/2007 Influenza, intradermal, quad rivalent, preservative free 07/17/2015,08/13/2014,07/17/2013,07/24,08/17/2011,10/12/2009,08/22/2008 ,09/14/2007 Novel [id number], preservative-free 10/12/2009 Pfizer Covid-19 Vaccine 12+ 02/03/2025,1 [...] Sign Reading Time Taken Comments Blood Pressure 128/78 04/29/2025 10:48 AM EDT Pulse 70 12/03/2024 10:07 AM EST Temperature 36.9 C (98.5 F) 11/29/2024 1:46 PM EST Respiratory Rate 18 11/29/2024 1:46 PM EST Oxygen Saturation 97% 11/29/2024 1:46 PM EST Inhaled Oxygen Concentration - - Weight 65 kg (143 lb 6.4 oz) 11/29/2024 1:46 PM EST Height 147.3 cm (4' 10 ) 10/28/2024 11:14 AM EST Body Mass Index 29.97 10/28/2024 11:14 AM EST Plan of Treatment Upcoming Encounters Date Type Department Care Team (Late st Contact Info) Description 05/16/2025 10:00 AM EDT Office Visit [address] [phone] Name, MD Boo [address] [place] [phone] 08/04/2025 10:00 AM EDT Clinical Support [address] [address] Ame Love, RN Health Maintenance Due Date Last Done Comments CT Colonography 1960 FIT DNA/Cologuard 1960 FIT 1960 FOBT 1960 Sigmoidoscopy 1960 Zoster Vaccines (1 of 2) 2009 RSV Patients and Patients Aged 60 years or older (1 - Risk 60-74 years 1-dose series) 2019 Depression Monitoring 11/16/2024 05/16/2024, 024 Dental Oral Exam 11/30/2024 05/29/2024 Mammogram 04/08/2025 04/08/2024, 04/14/2023 Alcohol/Substance Use Screening 05/16/2025 05/16/2024 SDOH Screening 05/16/2025 05/16/2024 Diabetes: Hemoglobin A1C 05/29/2025 025, 07/30/2024, 01/03/2024, Additional history exists Dental X-Ray: Bitewings 05/30/2025 05/29/2024 Dental Prophylaxis 06/03/2025 12/03/2024, 0 05/29/2024, 03/27/2023 Influenza Vaccine (#1) 2025 , 09/28/2021, 10/20/2020, Additional history exists COVID-19 Vaccine ( season) 2025 02/03/2025, 09/28/2021, 12/10/2020, Additional history exists Diabetes: Foot Exam 08/23/2025 08/23/2024, 08/23/2024, 08/23/2024, Additional history exists Tobacco Screening 01/29/2026 01/29/2025 Diabetes: Urine Protein Screening 02/06/2026 02/06/2025, 01/27/2021 Lipid Panel 02/06/2026 02/06/2025, 04/0 12/2023, 02/14/2023 HPV/Cotest 09/04/2026 07/25/2017 Pap Smear 09/04/2026 09/04/2023 Eye Exam 01/13/2027 01/13/2025, 03/1 , 01/13/2025, Additional history exists Dental X-Ray: Full Mouth 05/30/2027 05/29/2024 Colonoscopy 08/02/2027 08/02/2022 Colorectal Cancer Screening 08/02/2027 DTaP/Tdap/Td Vaccines (3 - Td or Tdap) 04/04/2030 04/04/2020, 01/14/2010 Pneumococcal Vaccine: 50+ Years Completed 08/18/2023, 03/14/2016, 09/19/2010 HIB Vaccines Aged Out No longer eligi [...] Author Blood Pressure < 140/90 Blood Pressure 128/78( 025 10:48 AM EDT) No Moe Johnson Procedures Procedure Name Priority Date/Time Associated Diagnosis Comments POCT COY-14 URINE DRUG SCREEN Routine 04/21/2025 10:59 AM EDT Long-term current use of opiate analgesic ALBUMIN, RANDOM URINE W/CREATININE Routine 02/06/2025 9:20 AM EDT LIPID PANEL, STANDARD Routine 02/06/2025 9:18 AM EDT BASIC METABOLIC PANEL Routine 02/06/2025 9:18 AM EDT HEPATIC FUNCTION PANEL Routine 02/06/2025 9:18 AM EDT PROPHYLAXIS - ADULT Routine 12/03/2024 1 0:00 AM EST POCT GLYCATED HEMOGLOBIN, TOTAL Routine 11/29/2024 1:50 PM EST Type 2 diabetes mellitus without complication, without long-term current use of insulin ([facility]) INTRAORAL - COMPLETE SERIES OF RADIOGRAPHIC IMAGES Routine 05/29/2024 1:00 PM EDT Dental calculus Secondary dental caries associated with failed or defective dental gnosticist PERIODIC ORAL EVALUATION - ESTABLISHED PATIENT Routine 05/29/2024 1:00 PM EDT Dental calculus Secondary dental caries associated with failed or defective dental gnosticist HM MAMMOGRAPHY Routine 04/08/2024 PAP SMEAR Routine 09/04/2023 11:17 AM EDT HM COLONOSCOPY Routine 08/02/2022 10:14 AM EDT ZZZ HISTORICAL HPV MRNA E6/E7 Routine 07/25/2017 9:30 AM EDT from Last 3 Months or Most Recently Relevant to Health Maintenance Results * POCT COY-14 Urine Drug Screen (04/21/2025 10:59 AM EDT) THC Positive Cocaine Screen, Urine Negative Opiate Screen, Urine Negative Methamphetamine Screen Urine Negative Amphetamine Screen, Urine Negative Benzodiazepines Screen, Urine Negative Barbiturate Screen, Urine Negative Methadone Screen, Urine Negative Buprenophine Screen, Urine Negative TCA, Urine Positive MDMA Urine Negative ng/mL Oxycodone Screen, Urine Positive Phencyclidine (PCP), Urine Negative Propoxyphene, Urine Negative Fentanyl, Urine Negative Urine Urine specimen obtained by clean catch procedure / Unknown 04/21/2025 10:59 AM EDT Ame John RN - 04/21/2025 10:59 AM EDT UTOX cup Lot#[id number] Exp. 09/05/26 Internal Pass Control us Boo Hastings MD POINT OF CARE TEST ENTER/EDIT OR DERABLES Final Result * Albumin, Random Urine W/Creatinine (02/06/2025 9:20 AM EDT) Creatinine, Urine 73.35 mg/dL [facility] Microalbumin Urine 10.0 mg/L [facility] Microalbum Creatinine Ratio Ur 13.6 <30 ug/mg cr [facility] Comment:Albumin/Creatinine R atio Reference Ranges: Normal: < 30 ug/mg creatinine Microalbuminuria: 30 - 300 ug/mg creatinineClinical Albuminuria: > 300 ug/mg creatinine 02/06/2025 9:20 AM EDT 02/06/2025 2:08 PM EDT us Boo Hastings MD LAB URINE ORDERABLES Final Resul t [facility] [address] [place] [phone] * Hepatic Function Panel (02/06/2025 9:18 AM EDT) Bilirubin, Total 0.2 0.0 - 1.0 mg/dL [facility] Bilirubin, Direct <0.2 0.0 - 0.5 mg/dL [facility] Aspartate Amino Transferase 23 5 - 31 U/L [facility] Alanine Aminotransferase 15 0 - 31 U/L [facility] Total Protein 6.7 6.5 - 8.0 g/dL [facility] Albumin Level 4.2 3.5 - 5.0 g/dL [facility] Alkaline Phosphatase 73 39 - 117 U/L [facility] 02/06/2025 9:18 AM EDT 02/06/2025 2:04 PM EDT us Boo Name MD LAB BLOOD ORDERABLES Final Resul t [facility] [address] [place] [phone] * Lipid Panel, Standard (02/06/2025 9:18 AM EDT) Triglycerides 52 <150 mg/dL [facility] Comment:Desirable Triglyceri de: less than 150 mg/dLBorderline High Triglyceride 150-199 mg/dLHigh Triglyceride: 200-499 mg/dLVery High Triglyceride: greater than or equal to 5OO mg/dL Cholesterol 147 <200 mg/dL [facility] Comment:Desirable Cholestero l: less than 200 mg/dLBorderline High Cholesterol: 200-239 mg/dLHigh Cholesterol: greater than 239 mg/dL LDL Cholesterol Calculated 79 <100 mg/dL [facility] Comment:Desirable LDL: less than 100 mg/dLNear Optimal/Above Optimal LDL: 110- 129 mg/dLBorderline High LDL: 130-159 mg/dLHigh LDL: 160-189 mg/dLVery High LDL: greater than or equal to 190 mg/dL HDL Cholesterol 58 >40 mg/dL [facility] Comment:Desirable HDL: great er than 40 mg/dL Note: This HDL assay may give artificially low results in patients with liver disease. 02/06/2025 9:18 AM EDT 02/06/2025 2:04 PM EDT us Boo Hastings MD LAB BLOOD ORDERABLES Final Resul t Performing Organization Address [facility] de Phone Number [facility] [address] [place] [phone] * (ABNORMAL) Basic Metabolic Panel (02/06/2025 9:18 AM EDT) Sodium 141 135 - 145 mmol/L [facility] Potassium 4.1 3.3 - 5.1 mmol/L [facility] Chloride 112(H) 96 - 108 mmol/L [facility] Carbon Dioxide 25 22 - 29 mmol/L [facility] Anion Gap 8(L) 12 - 20 [facility] Urea Nitrogen (BUN) 12 9 - 16 mg/dL [facility] Creatinine, Serum 0.65 0.5 - 1.4 mg/dL [facility] Estimated Glomerular Filt Rate >60 [facility] Comment:Chronic Kidney Disea se: Estimated GFR < 60 mL/min/[id number] Kidney Disease: Estimated GFR < 15 mL/min/1.73m2 Glucose 86 60 - 115 mg/dL [facility] Calcium 9.3 8.4 - 10.2 mg/dL [facility] 02/06/2025 9:18 AM EDT 02/06/2025 2:04 PM EDT us Boo Hastings MD LAB BLOOD ORDERABLES Final Resul t Performing Organization Address [facility] Co de Phone Number [facility] [address] [place] [phone] * POCT HGB A1C (11/29/2024 1:50 PM EST) Hemoglobin A1C 5.7 4.0 - 6.0 % QC Media Lot # [id number] Lot# Expiration Date Blood 11/29/2024 1:50 PM EST us Boo Hastings POINT OF CARE TEST ENTER/EDIT OR DERABLES Final Result * Mammography (04/08/2024) HM Mammogram BIRADS 1 Normal, Abnormal, BIRADS 1 , BIRADS 2 Anatomical Region Laterality Modality Other us Boo Name HEALTH MAINTENANCE Final Result * Pap Smear (09/04/2023 11:17 AM EDT) 09/04/2023 11:1 7 AM EDT 09/05/2023 9:00 AM EDT Narrative [facility] - 09/21/2023 11:07 AM EST ----- ------- Name: Juana Lord Age/Sex: 63/F : 1960 Unit#: [id number] Attend Dr: SHANTELLE DUNAWAY CNM Re09/04/23 Status: DEP [facility]ch: ----- ------- SPEC : [id number] RECD: 09/05/23 STATUS: GROVER IVERSON NUM: [id number] JESUS: 09/04/[address]: SHANTELLE DUNAWAY CNM ENTERED: 09/05/23 SP TYPE: Pap Smr OTHR DR: ORDERED: Pap Smear Interpretation Satisfactory for evaluation. Atrophic. Negative for intraepithelial lesion or malignancy. HPV unable to be performed due to error at reference lab. Clinical Information LMP: Unknown date Previous PAP test: Unknown date/findings Material Received ThinPrep-Cervical ----- ------- Signed (signature on file) YEIMI Villanueva (ASCP) 09/21/23 1107 ----- ------- END OF REPORT Shantelle Dunaway [facility] CYTOLOGY ORDERABLES F inal Result [facility] [address] [place] [phone] * Hm Colonoscopy (08/02/2022 10:14 AM EDT) Pathologist [facility] Colonoscopy Normal Normal Narrative Anita Marroquin - 08/02/2022 10:14 AM EDT Recommended 5 year follow up Historical Provider HEALTH MAINTENANCE Edited Result - Final * HPV mRNA E6/E7 (07/25/2017 9:30 AM EDT) Pathologist [facility] HPV mRNA E6/E7 Not Detected NOT DETECTED [facility] Comment: This test was performed using the APTIMA(R) HPV Assay ([employer] This assay detects E6/E7 viral messenger RNA (mRNA) from 14 high-risk HPV types (16,18,31,33,35,39,45,51, 52,56,58,59,66,68). For additional information please refer to: http://education.[employer]/faq/YKD133g3 (This link is being provided for informational/ educational purposes only.) Test Performed by [employer], [address] [place] [id number] John Aaron M.D., Ph.D., Director of Laboratories , [facility] [id number] Please note: Effective 07/18/2016, HPV testing will be performed using [employer]'s APTIMA test which targets mRNA. Detecting mRNA instead of DNA, as in older methods, offers significant improvements in specificity. 07/25/2017 9:30 AM EDT us Shantelle Dunaway CNM HISTORICAL/NON ORDERABLE LABS Final Result [facility] Anywhere [address] from Last 3 Months or Most Recently Relevant to Health Maintenance Insurance [id number] SN[facility] OPTIONS (HMO D-SNP) [place] [id number] [facility] STANDARD DENTAL [facility] DENTAL [facility] Care Teams Ip Counsel Relationship Specialty Start Date End Date Name, MD Boo [address] [place] [id number] PCP - General Family Medicine 04/26/19 Ira Orozco, PharmD [address] [place] [phone] Pharmacist Internal Medicine 02/03/25 Janessa Fraga 11/23/24
--- OUTSIDE RECORDS SUMMARY | 2025-05-07 11:13 | XMS_ITS | Data Portability ---
Author Organization [facility], [facility] Address [address] [place] [address] Care Team Providers Care Grain Mill Worker Name Role Phone HIM CCA OTHER Assessment Encounter Date Assessment Date Assessment LastModified by Organization Details LastModified Time 07/04/2024 07/04/2024 I provided real -time medical direction via phone for this encounter and was available for additional phone-based assistance as needed. I have reviewed and agree with the Assessment and Plan as documented by the Chief Projectionist. Patient given the opportunity to ask questions. [...] neurologic deficits and ambulates at baseline. Per manager of investigations on the scene, vital signs are stable [...] None recorded. Lab urinalysis , dipstick 2023 Misael CLOUD [facility], [address] [place] [address], [phone] 14:03:50 Referral None recorded. Procedures None recorded. [...] Not available 07/03/2024 1191 RxNorm Not Available [facility] - production 03:48:22 6003 Product containin g penicilli n (product) medicatio n Not available Not available Not available 07/03/2024 16500 8001 SNOMED Not Available [facility] - production 03:48:22 6004 atorvasta tin medicatio n Not available Not available Not available 07/03/2024 29720 RxNorm PARRISH MEDRANO MD [address] [place] [address],[address], [place], [phone], [employer] 4 11:01:18 6005 alendrona te sodium medicatio n Not available Not available Not available 07/03/202442045 2 RxNorm PARRISH MEDRANO MD [address] [place] [address],[address], [place], [phone], [employer] 4 11:01:32 Medications Name Sig Start Date [...] for severe pain. Please call and schedule PACU NURSE Nurse visit or Chronic Pain Group visit. [...] 4 98 % 98 % 14 /min 69006.8 g 98.4 [degF] 152.4 cm 80 /min [...] SNOMED-CT Code Diagnosis ICD10 Code Diagnosis Note [id number] Marlene Velazquez MD Main - instED [address] [place] [phone] 07/04/2024 09:29:57 07/04/2024 16:20:07 Chronic low back pain 629428438 M54.50 Urinary symptoms [id number] R39.9 Health Concerns Section Related Observation LastModified by Organization Detai ls LastModified Time None Recorded Concern Status LastModified by Organization Details LastModified Time None Recorded Advance Directives Directive None Recorded Payers Insurance Date Sequence Insurance Name Policy Number Policy Mckinnon Covered Member ID Mckinnon Member ID Guarantor Name 07/04/2024 1 [facility] - DOS ON OR AFTER 2023 - DUAL ELIGIBLE - [facility] OPTIONS AND ONE CARE (MEDICARE REPLACEMENT/ADV ANTAGE - HMO) Juana Lord [id number] Juana Lord Notes Date Note Type Note Provider Name and Address Organization Details Recorded Time 07/04/2024 text/html HPI: Triage call returned to patient for reports of confusion. Patient able to make all needs known and no verbal deficit. Reports more forgetfulness. Confirms some cramping and hot urine with voiding at times. No flank pain. .................... .................... .................... .................... .................... .................... .................... . CRC Nurse Triage Notes (Edney, Kortney): Chief Complaints: Altered Mental Status, UTI/Pyelonephritis PMH: Hypertension, COPD/Asthma, Diabetes Allergies: Aspirin, Penicillin Other Allergies: Atorvastatin,alendro kai Comments: HPI reviewed. No further information needed to process visit. 1700 Member was sleeping and did not want the visit today---- 07/03 member requesting a visit tomorrow 07/04 instead, visit r/s per member request- Chief Projectionist Organization Information for Mark Johnston [employer] Name: [facility] Address: [address] [place] [address], [place] [address], Green Energy Marketing Analyst: Michael Pizarro MD [facility] No.: [id number] Chief Projectionist POC Test Results from Mark Johnston Urine Dipstick (09:17:07) Urine leukocytes: - FRANK Urine nitrites: - NIT Urine urobilinogen: 0.2 URO Urine protein: 30 PRO Urine pH: 5.0 pH Urine blood: - BLO Urine specific gravity: 1.015 SG Urine ketones: - KET Urine bilirubin: - HUMERA Urine glucose: - GLU .................... .................... .................... .................... .................... .................... .................... . Chief Projectionist Note From Mark Johnston: Patient alert and oriented times three complains of lower abdominal pain times several days. Patient complains that she had constipation in the past, but this feels different. Patient said she also has lower back pain centered near her spine consistent with her history of sciatica pain she states. Patient states pain may be referred from that. Patient states pain doesn t change when she moves or eats. Patient states she s had UTIs in the past and wanted to check on that. Patient says she moved her bowels normally this morning. Patient states she has an appointment at the neurosurgeon for sciatica pain in 30 minutes from now.Patient, pink warm, dry, secondary exam unremarkable, abdomen, soft, non-tender no masses noted. Lung sounds clear negative edema. UA dip negative. Pale yellow, clear, no sediment. [facility] advises patient to follow up with PCP if symptoms continue.Red flags, patient education discussed. Chief Projectionist Allergies: Aspirin, Penicillin .................... .................... .................... .................... .................... .................... .................... . Disposition: Fulfilled Marlene Velazquez MD [address] [place] [address],[address], [place], [phone], [employer] 07/04/2024 10:38:05 OBGyn Episode No OBEpisode recorded.
[2025-05-07 11:34] LABS: Alanine Aminotransferase 28 U/L (0-31); Albumin Level 4.5 g/dL (3.5-5.0); Alkaline Phosphatase 68 U/L (39-117); Anion Gap 10 (12-20); Aspartate Amino Transferase 29 U/L (5-31); Blood Urea Nitrogen 15 mg/dL (9-16); Calcium 9.1 mg/dL (8.4-10.2); Carbon Dioxide 24 mmol/L (22-29); Chloride 111 mmol/L (96-108); Estimated Glomerular Filt Rate > 60; Potassium 3.9 mmol/L (3.3-5.1); Sodium 141 mmol/L (135-145); Total Protein 6.8 g/dL (6.5-8.0)
== END 2025-05-07 10:33 | disposition home or self-care (01) ==
LOC: HO.LAB 10:32
PROVIDERS: PCP Internal Medicine Geriatric Medicine; Visit Provider Internal Medicine Geriatric Medicine
DX: I10 Essential (primary) hypertension (principal); E55.9 Vitamin D deficiency, unspecified; E78.00 Pure hypercholesterolemia, unspecified
CPT/HCPCS: 36415; 80053; 82306

== ENCOUNTER 2025-09-04 17:11 | Outpatient (REF) | payer OTHER, SELFPAY ==
--- OUTSIDE RECORDS SUMMARY | 2025-09-04 11:30 | XMS_ITS | Encounter Summary ---
Author Organization [employer] Address [address] [facility] 7t [place] [address] Care Team Providers Care Merchant Mill Utility Worker Name Role Phone Name, Boo FARLEY Primary Care Provider [phone] Ira Orozco PharmD Unavailable [phone] Reason for Visit * Reason Comments RIVET SORTER Renewal Encounter Details Date Type Department Care Team (Latest Contact Info) Description 09/04/2025 11:30 AM EDT Clinical Support [address] [address] Ame Love RN Long-term current use of [...] y.o. 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 The patient last took Percocet on: 09/04/2025 Medication is: 70% % effective at alleviating pain. Pt stating that since her surgery on 07/24/25 her back pain has increased significantly. She is asking if PCP will increase her pain medications. OBJECTIVE: MDS RN checked: 09/04/2025 Pill count completed for Percocet [...] substance agreement: signed and up to date RIVET SORTER Tier: 2. Per message from PCP today, pt to be Tele RIVET SORTER RV, in person for her renewals Current [...] 09/04/2025 11:30 AM Ame Love RN MEDICINE [facility] 09/09/2025 3:45 PM Boo Hastings MD MEDICINE [facility] 12/12/2025 10:30 AM Ame Love RN MEDICINE [facility] 12/16/2025 10:15 AM Dangelo Pino [facility] ADL DEN [facility] 01/14/2026 10:30 AM Katlyn Vasquez, OD VISION [facility] Ame Love RN [1] Current Outpatient Medications: [...] Rfl: 11 Blood Glucose Monitoring Suppl (FreeStyle [place] Lite) w/Device kit, Use to test blood sugar once times daily, Disp: 1 kit, Rfl: 0 cholecalciferol (Vitamin D-3) 1.25 MG (13442 UT) capsule, Take 50,000 Units by mouth [...] Care Team (Late st Contact Info) Description 09/09/2025 3:45 PM EST Office Visit [facility] MEDICINE [address] [place] [phone] Name, MD Boo [address] [place] [address] 12/12/2025 10:30 AM EST Telemedicine [facility] MEDICINE [address] [place] [address] Ame Love, GEM 12/16/2025 10:15 AM EST Office Visit [facility] CHC ADULT DENTAL [address] [place] [address] Dangelo Pino 01/14/2026 10:30 AM EDT Office Visit [facility] OPTOMETRY [address] [place] [address] Katlyn Vasquez, OD [address] [place] [address] documented as of this encounter Goals Goal Patient Goal Type Associated Problems Recent Progress Patient-Stated? Author Blood Pressure < 140/90 Blood Pressure 132/76( 025 9:46 AM EDT) No Moe Johnson documented as of [...] Negative ng/mL Oxycodone Screen, Urine Positive(A) Negative Comment:RIVET SORTER pt on Percocet Phencyclidine (PCP), Urine Negative Negative Propoxyphene, Urine Negative Negative Fentanyl, Urine Negative Negative Urine Urine specimen obtained by clean catch procedure / Unknown 09/04/2025 11:17 AM EDT Narrative Ame Love RN - 09/04/2025 11:17 AM EDT UTOX cup Lot#[id number] Exp. 08/12/26 Internal Pass Control us Boo Hastings MD POINT OF CARE TEST ENTER/EDIT OR DERABLES Final Result * Drug Monitoring, Methadone Metabolite, Screen, Urine (09/04/2025 11:00 AM EDT) Methadone Screen, Urine Not Detected Not Detect ng/mL [facility] Comment:Methadone cut-off is 300 ng/mL.Positive results are unconfirmed and should not be used fornon-medical purposes. Urine (Urine, Random) 09/04/2025 11:00 AM EDT 09/04/2025 5:11 PM EDT us Boo Hastings MD LAB URINE ORDERABLES Final Resul t [facility] [address] [place] [phone] documented in this encounter Visit Diagnoses Diagnosis Long-term current use of opiate analgesic- Primary Encounter for long-term (current) use of other medications documented in this encounter Additional Health Concerns Assessment Noted Time PHQ-9 Depression Total Score: 10 05/16/ 025 10:47 AM EDT documented as of this encounter Care Teams Merchant Mill Utility Worker Relationship Specialty Start Date End Date Name, MD Boo [address] [place] [address] PCP - General Family Medicine 04/26/19 Ira Orozco PharmD [address] [place] [address] Pharmacist Internal Medicine 02/03/25 Janessa Fraga 11/23/24 documented as of this encounter
--- OUTSIDE RECORDS SUMMARY | 2025-09-04 18:26 | XMS_ITS | Encounter Summary ---
Author Organization [employer] Address [address] [facility] [address] [place] [address] Care Team Providers Care Wind Energy Project Manager Name Role Phone Name, Boo FARLEY Primary Care Provider [phone] Ira Orozco PharmD Unavailable [phone] Reason for Visit * Reason Comments Med Refill Encounter Details Date Type Department Care Team ([facility] Contact Info) Description 05/13/2024 Refill [facility] MED & PEDS [address] [place], [place] [phone] Name, MD Boo [address] [place] [address] Lumbar radiculopathy Social History Tobacco Use Types [...] the past 12 months, has t he [employer], gas, oil or water company threatened to [...] AM EDT documented as of this encounter Functional Status * Over the past 2 weeks, how often have you been bothered by any of the following problems? Question Answer Date of Assessment Author Patient Health Questionnaire -2 Score 6 05/16/2024 11:21 AM Manny Trinidad * If you checked off any problems on this questionnaire so far, Question Answer Date of Assessment Author How difficult have these problems made it for you to do your work, take care of things at home, or get along with other people? Somewhat difficult 05/16/2024 11:21 AM Manny Trinidad * Over the past 2 weeks, how often have you been bothered by any of the following problems? Question Answer Date of Assessment Author Little interest or pleasure in doing things Nearly every day 05/16/2024 11:21 AM Aliza Trinidad Feeling down, depressed, or hopeless Nearly every day 05/16/2024 11:21 AM Aliza Trinidad Trouble falling or staying asleep, or sleeping too much Not at all 05/16/2024 11:21 AM Aliza Trinidad Feeling tired or having little energy Nearly every day 05/16/2024 11:21 AM Aliza Trinidad Poor appetite or overeating Not at all 05/16/2024 11:21 AM Aliza Trinidad Feeling bad about yourself - or that you are a failure or have let yourself or your family down More than half the days 05/16/2024 11:21 AM Aliza Trinidad Trouble concentrating on things, such as reading the newspaper or watching television Not at all 05/16/2024 11:21 AM Aliza Trinidad Moving or speaking so slowly that other people could have noticed? Or the opposite - being so fidgety or restless that you have been moving around a lot more than usual. Not at all 05/16/2024 11:21 AM Aliza Trinidad Thoughts that you would be better off or hurting yourself in some way Not at all 05/16/2024 11:21 AM Aliza Trinidad Patient Health Questionnaire-9 Score 11 05/16/2024 11:21 AM Aliza Trinidad documented as of this encounter Plan of Treatment Upcoming Encounters Date Type Department Care Team (Late st Contact Info) Description 09/09/2025 3:45 PM EST Office Visit [facility] MEDICINE [address] [place] [address] Name, MD Boo [address] [place] [address] 12/12/2025 10:30 AM EST Telemedicine [facility] MEDICINE [address] [place] [address] Ame Love RN 12/16/2025 10:15 AM EST Office Visit [facility] CHC ADULT DENTAL [address] [place] [address] Dangelo Pino 01/14/2026 10:30 AM EDT Office Visit [facility] OPTOMETRY [address] [place] [address] Katlyn Vasquez, LESLEY [address] [place] [address] documented as of this encounter Goals Goal Patient Goal Type Associated Problems Recent Progress Patient-Stated? Author Blood Pressure < 140/90 Blood Pressure 132/76( 025 9:46 AM EDT) Moe Mcgee documented as of this encounter Visit Diagnoses Diagnosis Lumbar radiculopathy Thoracic or lumbosacral neuritis or radiculitis, unspecified documented in this encounter Additional Health Concerns Assessment Noted Time PHQ-9 Depression Total Score: 6 10/25/20 22 4:10 PM EST documented as of this encounter Care Teams Wind Energy Project Manager Relationship Specialty Start Date End Date Name, MD Boo [address] [place] [address] PCP - General Family Medicine 04/26/19 Ira Orozco PharmD [address] [place] [address] Pharmacist Internal Medicine 02/03/25 Janessa Fraga 11/23/24 documented as of this encounter
--- OUTSIDE RECORDS SUMMARY | 2025-09-04 18:26 | XMS_ITS | Encounter Summary ---
Author Organization [employer] Address [address] [facility] 7[address] [place] [address] Care Team Providers Care General Hardware Salesperson Name Role Phone Name, Boo FARLEY Primary Care Provider Ira Orozco PharmD Unavailable [phone] Encounter Details Date Type Department Care Team ([facility] Contact Info) Description 12/29/2022 Telephone [facility] MEDICINE [address] [place] [address] Name, MD Boo [address] [place] [phone] Social History Tobacco Use Types Packs/Day Years [...] Upcoming Encounters Date Type Department Care Team ([facility] Contact Info) Description 09/09/2025 3:45 PM EST Office Visit [facility] MEDICINE [address] [place] [address] [place] [address] Name, MD Boo [address] [place] [address] 12/12/2025 10:30 AM EST Telemedicine [facility] MEDICINE [address] [place] [address] Ame Love, RN 12/16/2025 10:15 AM EST Office Visit [facility] CHC ADULT DENTAL [address] [place] [address] Dangelo Pino 01/14/2026 10:30 AM EDT Office Visit [facility] OPTOMETRY [address] [place] [address] Katlyn Vasquez, OD [address] [place] [address] documented as of this encounter Visit Diagnoses Not on filedocumented in this encounter Additional Health Concerns Assessment Noted Time PHQ-9 Depression Total Score: 6 10/25/20 22 4:10 PM EST documented as of this encounter Care Teams General Hardware Salesperson Relationship Specialty Start Date End Date Name, MD Boo [address] [place] [address] PCP - General Family Medicine 04/26/19 Ira Orozco PharmD [address] [place] [address] Pharmacist Internal Medicine 02/03/25 Janessa Fraga 11/23/24 documented as of this encounter
--- OUTSIDE RECORDS SUMMARY | 2025-09-04 18:26 | XMS_ITS | Clinical Summary ---
Author Organization [employer] Address [address] 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 04/26/20 19 Active albuterol 108 (90 Base) MCG/ACT inhaler INHALE 2 PUFFS BY MOUTH EVERY 4 TO 6 HOURS NEEDED FOR SHORTNESS OF BREATH OR WHEEZING 04/29/20 23 Active Trelegy Ellipta 200-62.5-25 MCG/ACT aerosol powder TAKE 1 PUFF BY MOUTH EVERY DAY 05/11/20 23 Active zolpidem (Ambien) 5 MG tablet TAKE 1 TABLET BY MOUTH AT BEDTIME NEEDED IF YOU AWAKEN IN THE NIGHT 08/09/20 23 Active naloxone (Narcan) 4 mg/0.1 mL nasal sprayIndications :Chronic pain syndrome Administer 1 spray (4 mg) into affected nostril(s) if needed for opioid reversal. 2 each 2 08/07/20 24 Active estradiol (Estrace) 0.1 MG/GM vaginal cream Insert 1 g vaginally x 14 days, then use 1 g vaginally twice weekly ongoing after that 42.5 g 10/15/20 24 Active hydrOXYzine HCl (Atarax) 25 MG tabletIndication s:Anxiety TAKE ONE TABLET EVERY TWELVE HOURS NEEDED FOR ITCHING OR FOR ANXIETY 28 tablet 11/22/19 25 Active theophylline ER (Uniphyl) 400 MG 24 hr tablet Take 1 tablet by mouth at bedtime. 10/31/20 24 Active bisacodyl (Dulcolax) 5 MG EC tabletIndication s:Constipation, unspecified constipation type Take 1 tablet (5 mg) by mouth if needed each day for constipation. Do not crush, chew, or split. 30 tablet 11 12/17/19 25 2025 Active polyethylene glycol, PEG, 3350 (MiraLax) 17 GM/SCOOP powder Take 17 g by mouth Once per day. 527 g 12/17/19 25 2025 Active FREESTYLE LITE test stripIndications :Type 2 diabetes mellitus without complication, without long-term current use of insulin ([facility]) Use to test blood sugar once times daily 100 each 12 01/07/20 25 2025 Active Blood Glucose Monitoring Suppl (FreeStyle [place] Lite) w/Device kitIndications:T ype 2 diabetes mellitus without complication, without long-term current use of insulin ([facility]) Use to test blood sugar once times daily 1 kit 01/07/20 25 Active venlafaxine XR (Effexor XR) 150 MG 24 hr capsule Take 150 mg by mouth in the morning. 01/25/20 25 Active topiramate 50 MG tablet TAKE ONE TABLET IN THE MORNING AND EVENING 60 tablet 5 02/04/20 25 Active omega-3 (fish oil) 1000 MG capsule Take 1 capsule by mouth in the morning. OTC Active cholecalciferol (Vitamin D-3) 1.25 MG (89543 UT) capsule Take 50,000 Units by mouth 1 (one) time per week. 01/30/20 25 Active Diclofenac Sodium 1 % gelIndications:F ibromyalgia,Acut e pain of right shoulder APPLY 2 GRAMS TOPICALLY IF NEEDED IN THE MORNING AND AT BEDTIME (MUSCLE PAIN). 100 g 3 03/24/20 25 Active albuterol (2.5 MG/3ML) 0.083% nebulizer solutionIndicati ons:Chronic obstructive pulmonary disease, unspecified (HCC) INHALE ONE AMPULE USING A NEBULIZER FOUR TIMES DAILY 90 mL 1 04/17/20 25 Active ezetimibe (Zetia) 10 MG tablet TAKE ONE TABLET EVERY MORNING 30 tablet 04/28/20 25 Active Alcohol Swabs (Alcohol Prep) 70 % padsIndications: Type 2 diabetes mellitus without complication, without long-term current use of insulin (HCC) Use to test blood sugar once daily 100 each 04/28/20 25 Active Easy Touch Lancets 33G/Twist miscIndications: Type 2 diabetes mellitus without complication, without long-term current use of insulin (HCC) Use to test blood sugar once daily 100 each 04/28/20 25 Active Acetaminophen Extra Strength 500 MG tablet TAKE ONE TABLET BY MOUTH EVERY 8 HOURS NEEDED MILD PAIN 90 tablet 04/28/20 25 Active Multiple Vitamin (Multivitamin) tablet TAKE ONE TABLET EVERY MORNING 90 tablet 1 05/12/20 25 Active amLODIPine (Norvasc) 5 MG tablet Take 1 tablet (5 mg) by mouth in the morning. 30 tablet 05/16/20 25 Active omeprazole (PriLOSEC) [address] capsule Take 1 capsule (20 mg) by mouth before breakfast. Do not crush or chew. 30 capsule 05/16/20 25 Active azithromycin (Zithromax) 500 MG tablet TAKE ONE TABLET THREE TIMES PER WEEK ON MONDAY, MONDAY AND MONDAY MORNING Active pregabalin (Lyrica) 150 MG capsuleIndicatio ns:Lumbar radiculopathy TAKE 1 CAPSULE(150 MG) BY MOUTH TWICE DAILY IN THE MORNING AND AT BEDTIME 60 capsule 08/08/20 25 Active montelukast (Singulair) 10 MG tabletIndication s:Moderate persistent asthma without complication TAKE 1 TABLET BY MOUTH EVERY EVENING 90 tablet 1 08/12/20 25 Active Lidocaine (HM Lidocaine Patch) 4 % patch Apply 1 patch topically Once per day. 30 patch 3 08/15/20 25 2024 Active oxyCODONE-acetam inophen (Percocet) 5-325 MG tabletIndication s:Chronic right shoulder pain,Lumbar radiculopathy,Ch ronic pain syndrome Take 1 tablet by mouth every 8 (eight) hours if needed for severe pain for up to 28 days. Do not start before August 29, 2025. 84 tablet 08/29/20 25 2024 Active amitriptyline (Elavil) 25 MG tablet TAKE 1 TABLET BY MOUTH EVERY NIGHT AT BEDTIME 30 tablet 1 08/27/20 25 Active SUMAtriptan (Imitrex) 100 MG tabletIndication s:Migraine without status migrainosus, not intractable, unspecified migraine type TAKE 1 TABLET BY MOUTH AT ONSET OF MIGRAINE. MAY REPEAT 1 TIME AFTER 2 HOURS NEEDED 9 tablet 2 08/27/20 25 Active ibuprofen 800 MG tabletIndication s:Lumbar radiculopathy TAKE 1 TABLET BY MOUTH EVERY 8 HOURS NEEDED FOR MILD PAIN 30 tablet 09/04/20 25 Active lidocaine (Lidoderm) 5 % patchIndications :Chronic pain syndrome APPLY 1 PATCH TO SKIN. LEAVE ON FOR 12 HOURS, THEN OFF FOR 12 HOURS DIRECTED. 30 patch 5 04/15/20 25 2024 Discontinued(D uplicate order (will not trigger notification to Pharmacy)) montelukast (Singulair) 10 MG tabletIndication s:Moderate persistent asthma without complication TAKE ONE TABLET EVERY EVENING 90 tablet 1 05/12/20 25 2024 Discontinued SUMAtriptan (Imitrex) 100 MG tabletIndication s:Migraine without status migrainosus, not intractable, unspecified migraine type TAKE 1 TABLET BY MOUTH AT ONSET OF MIGRAINE, MAY REPEAT ONCE AFTER 2 HOURS IF NEEDED 9 tablet 2 06/24/20 25 2024 Discontinued amitriptyline (Elavil) 25 MG tablet TAKE 1 TABLET BY MOUTH EVERY NIGHT AT BEDTIME 30 tablet 1 07/02/20 25 2024 Discontinued oxyCODONE-acetam inophen (Percocet) 5-325 MG tabletIndication s:Chronic right shoulder pain,Lumbar radiculopathy,Ch ronic pain syndrome Take 1 tablet by mouth every 8 (eight) hours if needed for severe pain for up to 28 days. Do not start before July 09, 2025. 84 tablet 07/09/20 25 2024 Discontinued(R eorder (will not trigger notification to Pharmacy)) lidocaine-priloc danni (Emla) 2.5-2.5 % cream APPLY TOPICALLY TO THE AFFECTED AREA 1 TIME FOR 1 DOSE 30 g 1 07/09/20 25 2024 Discontinued(D uplicate order (will not trigger notification to Pharmacy)) pregabalin (Lyrica) 150 MG capsuleIndicatio ns:Lumbar radiculopathy TAKE 1 CAPSULE(150 MG) BY MOUTH TWICE DAILY IN THE MORNING AND AT BEDTIME 60 capsule 07/14/20 25 2024 Discontinued ibuprofen 800 MG tabletIndication s:Lumbar radiculopathy TAKE 1 TABLET BY MOUTH EVERY 8 HOURS NEEDED FOR MILD PAIN 30 tablet 07/14/20 25 2024 Discontinued Lidocaine (HM Lidocaine Patch) 4 % patch Apply topically. 2024 Discontinued(R eorder (will not trigger notification to Pharmacy)) Active Problems Problem Noted Date Diagnosed Date Long-term current use of opiate analgesic 2024 History of urinary hesitancy 09/10/2024 Assessment & Plan (09/10/2024 1:54 PM EST): Reports years of urinary hesitancy. She follows with specialist. -recommended to follow-up with specialist. -ER precautions discussed. Constipation 09/10/2024 Assessment & [...] for now. Stage 3a chronic kidney disease (CMS/HCC) 2022 Abdominal pain 09/22/2023 09/22/2023 Diverticulosis 09/22/2023 09/22/2023 History of sleeve gastrectomy 09/22/2023 Intestinal malabsorption following gastrectomy 1 11/22/2022 09/22/2023 Overweight (BMI 25.0-29.9) 09/22/202309/22 Tubular adenoma 09/22/2023 09/22/2023 Pancreatic abnormality 09/22/2023 Fibromyositis 05/22/2023 Knee pain 05/22/2023 Muscle pain 05/22/2023 Obesity 05/22/2023 Somatization disorder 05/22/2023 History of total bilateral knee replacement 05/06 Overview (05/22/2023): 02/2023 on the R 05/2023 on the L Cervical spondylosis without myelopathy 10/17/20 22 Cyst of pancreas 10/17/2022 Moderate persistent asthma without complication 10/17/2022 Centrilobular emphysema 02/07/2020 Carpal tunnel syndrome 12/16/2019 Overview (05/22/2023): CTR Left 2006, CTR Right 2003, Acquired hypothyroidism 06/25/2018 Gastroesophageal reflux disease without [...] different neurologist. Her eye doctor is at [facility]. Osteopenia 11/22/2007 Depressive disorder 06/18/2007 Overview (05/22/2023): F/u [facility] counseling Dr Jurado Assessment & Plan [...] Problem Noted Date Diagnosed Date Resolved Date Hospital discharge follow-up 11/29/2024 05/16/2025 Assessment & Plan (11/29/2024 2:22 PM EST): Pt has completed her treatment for PNA and physical exam is normal today, pulm exam nl, no wheezing, cough, SOB, or increased work of breathing Pt is stable today Fall (on) (from) other stair s and steps, initial encounter 10/01/2024 05/16/2025 Assessment & Plan (10/01/2024 8:56 AM EST): [...] with his son. Order CT scan brain Acute exacerbation of COPD w ith asthma ([facility]) 09/10/2024 05/16/2025 Assessment & Plan (09/10/2024 1:54 PM EST): Diffuse, mild wheezing on exam with some scattered rhonchi. Likely acute exacerbation due to underlying URI. -No evidence of respiratory distress. Symptoms mild. -No evidence of dehydration. -Will prescribed short course of azithromycin and prednisone 09/10/24 -ER precautions discussed. Atypical chest pain 09/22/2023 09/22/2023 05/16/20 25 Preop pulmonary/respiratory exam 09/22/2023 09/22/20 23 05/16/2025 UTI (urinary tract infection ) due to Enterococcus 09/22/2023 09/22/2023 05/16/2025 COPD exacerbation ([facility]) 09/20/2023 05/16/2025 Assessment & Plan (09/20/2023 4:19 PM EST): -Rx augmenting and prednisone given 3 weeks of COPD exacerbation and continued ronchi and wheeze after treatment. 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 Paratracheal lymphadenopathy 01/17/2020 05/16/2025 Opiate dependence ([facility]) 01/15/2019 05/16/2025 Overview (05/22/2023): On suboxone Weight gain 08/22/2008 05/22/2023 Encounters Date Type Department Care Team Description 09/04/2025 11:30 AM EDT Clinical Support [facility] [address] [facility] [place] [address] Ame Love, GEM Long-term current use of opiate analgesic (Primary Dx) 09/04/2025 Telephone [facility] [address] [place] [address] Ame Love, GEM 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 renewed 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; Abnormal UTOX 09/04/2025 Travel 09/04/2025 Refill [facility] [address] [place] [address] Boo Hastings MD Lumbar radiculopathy 08/27/2025 Refill [facility] [address] [place] [address] Boo Hastings MD Migraine without status migrainosus, not intractable, unspecified migraine type 08/26/2025 Telephone [facility] [address] [place] [address] NameBoo MD call back 08/26/2025 Refill [facility] [address] [place] [address] Boo Hastings MD Chronic right shoulder pain; Lumbar radiculopathy; Chronic pain syndrome 08/19/2025 Telephone [facility] [address] [place] [address] Boo Hastings MD Med Refill 08/15/2025 Refill [facility] [address] [place] [address] Boo Hastings MD 08/12/2025 Refill [facility] [address] [place] [address] Boo Hastings MD Moderate persistent asthma without complication 08/08/2025 Refill [facility] [address] [place] [address] Boo Hastings MD Lumbar radiculopathy 08/05/2025 Refill [facility] [address] [place] [address] Boo Hastings MD 07/29/2025 Telephone [facility] [address] [place] [address] Juanito Shelbi NEREIDA 07/29/2025 Telephone [facility] [address] [place] [address] Boo Hastings MD DEC RECALL 07/29/2025 Patient Outreach [address] [address] Boo Hastings MD Transition Of Care (Tcm) (HDF unscheduled) 07/21/[address] [phone] Boo Hastings MD Medication Question 07/21/[address] [phone] Boo Hastings MD Durable Medical Equipment 07/14/[address] [address] Boo Hastings MD Med Refill 07/14/[address] [address] Boo Hastings MD Prior Authorization 07/14/[address] [address] Boo Hastings MD Med Refill 07/14/[address] [address] Boo Hastings MD Durable Medical Equipment 07/14/[address] [address] Boo Hastings MD Lumbar radiculopathy 07/08/2025 Refill [facility] [address] [place] [phone] Bushra Frey NP 07/08/2025 Refill [facility] [address] [place] [phone] Boo Hastings MD Chronic right shoulder pain; Lumbar radiculopathy; Chronic pain syndrome 07/01/[address] [address] Boo Hastings MD 06/26/2025 10:00 AM EDT Office Visit [facility] [address] [place] [address] Jillian Curtisricio 06/24/2025 Telephone [facility] [address] [place] [phone] Lexii Skinner NEREIDA OCT RECALLS 06/23/2025 Refill [facility] [address] [place] [phone] Boo Hastings MD Migraine without status migrainosus, not intractable, unspecified migraine type 06/20/2025 Telephone [facility] [address] [place] [address] Boo Hastings MD Medication Question 06/13/2025 Telephone [facility] [address] [place] [phone] Boo Hastings MD 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 06/13/2025 Telephone [facility] [address] [place] [address] Boo Hastings MD Nurse Triage 06/12/2025 10:00 AM EDT Office Visit [facility] [address] [place] [address] Dangelo Pino Dental calculus (Primary Dx) 06/11/2025 Refill [facility] [address] [place] [phone] Boo Hastings MD Lumbar radiculopathy 06/10/2025 Refill [facility] [address] [place] [address] Boo Hastings MD Lumbar radiculopathy 06/10/2025 Refill [facility] [address] [place] [phone] Boo Hastings MD Chronic right shoulder pain; Lumbar radiculopathy; Chronic pain syndrome 06/10/2025 Telephone [facility] [address] [place] [phone] Boo Hastings MD Med Refill 06/10/2025 Telephone [facility] [address] [place] [address] Boo Hastings MD Durable Medical Equipment 06/04/2025 Refill [facility] [address] [place] [address] Name, MD Boo from Last 3 Months Immunizations Immunization Administration Dates Next Due Influenza injectable quadriv alent IIV4 with preservative 07/25/2023,01/01/2018,08/29/2016 Influenza injectable quadriv alent preservative free 09/28/2021,10/20/2020,11/26/2019 Influenza, IIV3, injectable 07/17/2015,1 ,07/17/2013,07/24,08/17/2011,09/19/2010,10/12/2009 ,08/22/2008,09/14/2007 Influenza, intradermal, quad rivalent, preservative free 07/17/2015,08/13/2014,07/17/2013,07/24,08/17/2011,10/12/2009,08/22/2008 ,09/14/2007 Novel [id number], preservative-free 10/12/2009 Pfizer Covid-19 Vaccine 12+ 02/03/2025,1 [...] Sign Reading Time Taken Comments Blood Pressure 132/76 06/26/2025 9:46 AM EDT Pulse 70 06/26/2025 9:46 AM EDT Temperature 36.3 C (97.4 F) 05/16/2025 10:15 AM EDT Respiratory Rate 18 05/16/2025 10:15 AM EDT Oxygen Saturation 98% 05/16/2025 10:15 AM EDT Inhaled Oxygen Concentration - - Weight 64 kg (141 lb 3.2 oz) 05/16/2025 10:15 AM EDT Height 144.8 cm (4' 9 ) 05/16/2025 10:15 AM EDT Body Mass Index 30.56 05/16/2025 10:15 AM EDT Plan of Treatment Upcoming Encounters Date Type Department Care Team (Late st Contact Info) Description 09/09/2025 3:45 PM EST Office Visit [facility] [address] [place] [phone] Name, MD Boo [address] [place] [address] 12/12/2025 10:30 AM EST Telemedicine [facility] [address] [place] [address] Ame Love, GEM 12/16/2025 10:15 AM EST Office Visit [facility] [address] [place] [address] Dangelo Pino 01/14/2026 10:30 AM EDT Office Visit [facility] [address] [place] [address] Katlyn Vasquez, OD [address] [place] [address] Health Maintenance Due Date Last Done Comments CT Colonography 1960 FIT DNA/Cologuard 1960 FIT 1960 FOBT 1960 Sigmoidoscopy 1960 Zoster Vaccines (1 of 2) 2009 RSV Patients and Patients Aged 60 years or older (1 - Risk 60-74 years 1-dose series) 2019 Mammogram 04/08/2025 04/08/2024, 04/14/2023 Influenza Vaccine (#1) 2025 , 09/28/2021, 10/20/2020, Additional history exists COVID-19 Vaccine ( season) 2025 02/03/2025, 09/28/2021, 12/10/2020, Additional history exists Diabetes: Foot Exam 08/23/2025 08/23/2024, 08/23/2024, 08/23/2024, Additional history exists Depression Monitoring 11/16/2025 05/16/2025, 025 Diabetes: Hemoglobin A1C 11/16/2025 025, 11/29/2024, 07/30/2024, Additional history exists Dental Oral Exam 12/14/2025 06/12/2025, 05/29/2024 Dental Prophylaxis 12/14/2025 06/12/2025, 0 12/03/2024, 05/29/2024, Additional history exists Diabetes: Urine Protein Screening 02/06/2026 02/06/2025, 01/27/2021 Lipid Panel 02/06/2026 02/06/2025, 04/0 12/2023, 02/14/2023 Alcohol/Substance Use Screening 05/16/2026 05/16/2025 SDOH Screening 05/16/2026 05/16/2025 Dental X-Ray: Bitewings 06/13/2026 06/12/2025, 05/29 Tobacco Screening 06/26/2026 06/26/2025 HPV/Cotest 09/04/2026 07/25/2017 Pap Smear 09/04/2026 09/04/2023 [...] Pressure 132/76( 025 9:46 AM EDT) No SampoMoe lamar Procedures Procedure Name Priority Date/Time Associated Diagnosis Comments POCT COY-14 URINE DRUG SCREEN Routine 09/04/2025 11:17 AM EDT Long-term current use of opiate analgesic METHADONE SCREEN, URINE Routine 09/04/2025 11:00 AM EDT Long-term current use of opiate analgesic CASE PRESENTATION, DETAILED AND EXTENSIVE TREATMENT PLANNING Routine 06/26/2025 10:00 AM EDT LIMITED ORAL EVALUATION - PROBLEM FOCUSED Routine 06/26/2025 10:00 AM EDT COMPREHENSIVE PERIODONTAL EVALUATION - NEW OR ESTABLISHED PATIENT Routine 06/12/2025 10:00 AM EDT PERIODIC ORAL EVALUATION - ESTABLISHED PATIENT Routine 06/12/2025 10:00 AM EDT CASE PRESENTATION, DETAILED AND EXTENSIVE TREATMENT PLANNING Routine 06/12/2025 10:00 AM EDT INTRAORAL - PERIAPICAL EACH ADDITIONAL RADIOGRAPHIC IMAGE Routine 06/12/2025 10:00 AM EDT INTRAORAL - PERIAPICAL FIRST RADIOGRAPHIC IMAGE Routine 06/12/2025 10:00 AM EDT BITEWINGS - 4 RADIOGRAPHIC IMAGES Routine 06/12/2025 10:00 AM EDT ORAL HYGIENE INSTRUCTIONS Routine 06/12/2025 10:00 AM EDT PROPHYLAXIS - ADULT Routine 06/12/2025 1 0:00 AM EDT POCT GLYCATED HEMOGLOBIN, TOTAL Routine 05/16/2025 10:18 AM EDT Type 2 diabetes mellitus without complication, without long-term current use of insulin ([facility]) ALBUMIN, RANDOM URINE W/CREATININE Routine 02/06/2025 9:20 AM EDT LIPID PANEL, STANDARD Routine 02/06/2025 9:18 AM EDT INTRAORAL - COMPLETE SERIES OF RADIOGRAPHIC IMAGES Routine 05/29/2024 1:00 PM EDT Dental calculus Secondary dental caries associated with failed or defective dental jain HM MAMMOGRAPHY Routine 04/08/2024 PAP SMEAR Routine 09/04/2023 11:17 AM EDT HM COLONOSCOPY Routine 08/02/2022 10:14 AM EDT ZZZ HISTORICAL HPV MRNA E6/E7 Routine 07/25/2017 9:30 AM EDT from Last 3 Months or Most Recently Relevant to Health Maintenance Results * (ABNORMAL) POCT COY-14 Urine Drug [...] Negative ng/mL Oxycodone Screen, Urine Positive(A) Negative 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 08/12/26 Internal Pass Control us Boo Hastings MD POINT OF CARE TEST ENTER/EDIT OR DERABLES Final Result * Drug Monitoring, Methadone Metabolite, Screen, Urine (09/04/2025 11:00 AM EDT) Methadone Screen, Urine Not Detected Not Detect ng/mL [facility] Comment:Methadone cut-off is 300 ng/mL.Positive results are unconfirmed and should not be used fornon-medical purposes. Urine (Urine, Random) 09/04/2025 11:00 AM EDT 09/04/2025 5:11 PM EDT us Boo Hastings MD LAB URINE ORDERABLES Final Resul t [facility] [address] [place] [address] [phone] * POCT HGB A1C (05/16/2025 10:18 AM EDT) Hemoglobin A1C 5.0 4.0 - 5.7 % QC Media Lot # [id number] Lot# Expiration Date Blood 05/16/2025 10:1 8 AM EDT us Boo Hastings MD POINT OF CARE TEST ENTER/EDIT OR DERABLES Final Result * Albumin, Random Urine W/Creatinine (02/06/2025 9:20 AM EDT) Creatinine, Urine 73.35 mg/dL [facility] Microalbumin Urine 10.0 mg/L [facility] Microalbum Creatinine Ratio Ur 13.6 <30 ug/mg cr [facility] Comment:Albumin/Creatinine R atio Reference Ranges: Normal: < 30 ug/mg creatinine Microalbuminuria: 30 - 300 ug/mg creatinineClinical Albuminuria: > 300 ug/mg creatinine 02/06/2025 9:20 AM EDT 02/06/2025 2:08 PM EDT us Boo Hastings MD LAB URINE ORDERABLES Final Resul t Performing Organization Address [facility] Co de Phone Number [facility] [address] [place] [address] [phone] * Lipid Panel, Standard (02/06/2025 9:18 AM EDT) Triglycerides 52 <150 mg/dL [facility] Comment:Desirable Triglyceri de: less than 150 mg/dLBorderline High Triglyceride 150-199 mg/dLHigh Triglyceride: 200-499 mg/dLVery High Triglyceride: greater than or equal to 5OO mg/dL Cholesterol 147 <200 mg/dL [facility] Comment:Desirable Cholestero l: less than 200 mg/dLBorderline High Cholesterol: 200-239 mg/dLHigh Cholesterol: greater than 239 mg/dL LDL Cholesterol Calculated 79 <100 mg/dL [facility] Comment:Desirable LDL: less than 100 mg/dLNear Optimal/Above Optimal LDL: 110- 129 mg/dLBorderline High LDL: 130-159 mg/dLHigh LDL: 160-189 mg/dLVery High LDL: greater than or equal to 190 mg/dL HDL Cholesterol 58 >40 mg/dL [facility] Comment:Desirable HDL: great er than 40 mg/dL Note: This HDL assay may give artificially low results in patients with liver disease. 02/06/2025 9:18 AM EDT 02/06/2025 2:04 PM EDT us Boo Hastings MD LAB BLOOD ORDERABLES Final Resul t [facility] [address] [place] [phone] * Mammography (04/08/2024) Mammogram BIRADS 1 Normal, Abnormal, BIRADS 1 , BIRADS 2 Anatomical Region Laterality Modality Other us Boo Hastings MD HEALTH MAINTENANCE Final Result * Pap Smear (09/04/2023 11:17 AM EDT) 09/04/2023 11:1 7 AM EDT 09/05/2023 9:00 AM EDT Narrative [facility] - 09/21/2023 11:07 AM EST ----- ------- Name: Juana Lord Age/Sex: 63/F : 1960 Unit#: [id number] Attend Dr: SHANTELLE DUNAWAY CNM Re09/04/23 Status: DEP REF Location: [facility] Disch: ----- ------- SPEC : [id number] RECD: 09/05/23 STATUS: GROVER IVERSON NUM: [id number] JESUS: 09/04/[address] [facility] [address]: SHANTELLE DUNAWYA CNM ENTERED: 09/05/23 SP TYPE: Pap Smr OTHR DR: ORDERED: Pap Smear Interpretation Satisfactory for evaluation. Atrophic. Negative for intraepithelial lesion or malignancy. HPV unable to be performed due to error at reference lab. Clinical Information LMP: Unknown date Previous PAP test: Unknown date/findings Material Received ThinPrep-Cervical ----- ------- Signed (signature on file) YEIMI Villanueva (ASCP) 09/21/23 1107 ----- ------- END OF REPORT us Shantelle Dunaway CNM LAB CYTOLOGY ORDERABLES F inal Result [facility] [address] [place] [address] [phone] * Hm Colonoscopy (08/02/2022 10:14 AM EDT) Colonoscopy Normal Normal Narrative Anita Marroquin - 08/02/2022 10:14 AM EDT Recommended 5 year follow up us Historical Provider MD HEALTH MAINTENANCE Edited Result - Final * HPV mRNA E6/E7 (07/25/2017 9:30 AM EDT) HPV mRNA E6/E7 Not Detected NOT DETECTED [facility] Comment: This test was performed using the APTIMA(R) HPV Assay ([facility] This assay detects E6/E7 viral messenger RNA (mRNA) from 14 high-risk HPV types (16,18,31,33,35,39,45,51, 52,56,58,59,66,68). For additional information please refer to: http://education.[employer]/faq/RLS151f0 (This link is being provided for informational/ educational purposes only.) Test Performed by Barney Oneal, [facility], [address] [place] [id number] John Aaron M.D., Ph.D., Director of Laboratories , [place] [id number] Please note: Effective 07/18/2016, HPV testing will be performed using [employer]'s APTIMA test which targets mRNA. Detecting mRNA instead of DNA, as in older methods, offers significant improvements in specificity. 07/25/2017 9:30 AM EDT Shantelle Dunaway CNM HISTORICAL/NON ORDERABLE LABS Final Result [facility] [address] from Last 3 Months or Most Recently Relevant to Health Maintenance Insurance [facility] ASSISTED OPTIONS (HMO D-SNP) [facility] STANDARD DENTAL [facility] DENTAL [facility] Care Teams Concrete Mixer Truck Driver Relationship Specialty Start Date End Date Name, MD Boo [address] [place] [address] PCP - General Family Medicine 04/26/19 [place] Orozco, LesleyD [address] [place] [address] Pharmacist Internal Medicine 02/03/25 Janessa Fraga 11/23/24
--- OUTSIDE RECORDS SUMMARY | 2025-09-04 18:27 | XMS_ITS | Encounter Summary ---
Author Organization [employer] Address 75 [facility] 7t [place] [address] Care Team Providers Care Reinforcing Iron And Rebar Workers Name Role Phone Name, Boo F[place] Primary Care Provider [phone] [place] Orozco PharmD Unavailable [phone] Reason for Visit * Reason Onset Date Comments appt/disconnected call 08/23/2024 Encounter Details Date Type Department Care Team ([facility] Contact Info) Description 08/23/2024 Telephone [facility] CHC ADULT DENTAL [address] [place] [address] Keegan Curtis [address] [place] [address] appt/disconnected call Social History Tobacco Use Types [...] foravailability. Patient disconnected call. Appts offered by [facility] were 08/30 at 9 or 11am with [...] Upcoming Encounters Date Type Department Care Team ([facility] st Contact Info) Description 09/09/2025 3:45 PM EST Office Visit [facility] MEDICINE [address] [place] [address] Name, MD Boo [address] [place] [address], [place] [address] 12/12/2025 10:30 AM EST Telemedicine [facility] MEDICINE [address] [place] [address] Ame Love, RN 12/16/2025 10:15 AM EST Office Visit [facility] CHC ADULT DENTAL [address] [place] [address] Dangelo Pino 01/14/2026 10:30 AM EDT Office Visit [facility] OPTOMETRY [address] [place] [address] Pedro, Katlyn, OD [address] [place] [address] documented as of this encounter Goals Goal [...] documented as of this encounter Care Teams Reinforcing Iron And Rebar Workers Relationship Specialty Start Date End Date Name, MD Boo [address] [place] [address] PCP - General Family Medicine 04/26/19 [place] Orozco PharmD [address] [place] [address] Pharmacist Internal Medicine 02/03/25 Janessa Fraga 11/23/24 documented as of this encounter
--- OUTSIDE RECORDS SUMMARY | 2025-09-04 18:27 | XMS_ITS | Encounter Summary ---
Author Organization [employer] Address 75 [facility] 7t [place] [address] Care Team Providers Care Manager Transition Name Role Phone Name, Boo F[place] Primary Care Provider [phone] [place] Orozco PharmD Unavailable [phone] Reason for Visit * Reason Comments Med Refill Encounter Details Date Type Department Care Team ([facility] Contact Info) Description 12/21/2023 Refill [facility] MEDICINE [address] [place], [place] [phone] Penny Kang MD [address] [place] [address] Lumbar radiculopathy Social History Tobacco Use Types [...] Description 09/09/2025 3:45 PM EST Office Visit [facility] MEDICINE [address] [place] [address] NameBoo MD [address] [place] [address] 12/12/2025 10:30 AM EST Telemedicine [facility] MEDICINE [address] [place] [address] Ame Love RN 12/16/2025 10:15 AM EST Office Visit [facility] CHC ADULT DENTAL [address] [place] [address] Dangelo Pino 01/14/2026 10:30 AM EDT Office Visit [facility] OPTOMETRY [address] [place] [address] Katlyn Vasquez, OD 230 [place] [address] documented as of this encounter Goals Goal [...] documented as of this encounter Care Teams Manager Transition Relationship Specialty Start Date End Date Name, MD Boo [address] [place], [place] [phone] PCP - General Family Medicine 04/26/19 [place] Orozco, LesleyD [address] [place] [address] Pharmacist Internal Medicine 02/03/25 Janessa Fraga 11/23/24 documented as of this encounter
--- OUTSIDE RECORDS SUMMARY | 2025-09-04 18:27 | XMS_ITS | Encounter Summary ---
Author Organization [employer] Address 75 [facility] 7t [place] [address] Care Team Providers Care Occupational Health Physiotherapist Name Role Phone Name, Boo F[place] Primary Care Provider [phone] [place] Orozco PharmD Unavailable [phone] Encounter Details Date Type Department Care Team ([facility] Contact Info) Description 02/13/2023 Orders Only [facility] MEDICINE [address] [place] [address] [phone] Miracle Prescott LPN Social History Tobacco Use [...] Upcoming Encounters Date Type Department Care Team ([facility] Contact Info) Description 09/09/2025 3:45 PM EST Office Visit [facility] MEDICINE [address] [place] [address] [phone] Name, MD Boo [address] [place] [address] 12/12/2025 10:30 AM EST Telemedicine [facility] MEDICINE [address] [place] [address] Ame Love, RN 12/16/2025 10:15 AM EST Office Visit [facility] CHC ADULT DENTAL [address] [place] [address] Dangelo Pino 01/14/2026 10:30 AM EDT Office Visit [facility] OPTOMETRY [address] [place] [address] PedroTravis santosn, OD [address] [place] [address] documented as of this encounter Visit Diagnoses Not on filedocumented in this encounter Additional Health Concerns Assessment Noted Time PHQ-9 Depression Total Score: 6 10/25/20 22 4:10 PM EST documented as of this encounter Care Teams Occupational Health Physiotherapist Relationship Specialty Start Date End Date Name, MD Boo [address] [place] [address] PCP - General Family Medicine 04/26/19 [place] Orozco PharmD [address] [place] [address] Pharmacist Internal Medicine 02/03/25 Janessa Fraga 11/23/24 documented as of this encounter
--- OUTSIDE RECORDS SUMMARY | 2025-09-04 18:27 | XMS_ITS | Encounter Summary ---
Author Organization [employer] Address 75 [facility] 7t [place] [address] Care Team Providers Care Senior Property Manager Name Role Phone Name, Boo F[place] Primary Care Provider [phone] [place] Orozco PharmD Unavailable [phone] Reason for Visit * Reason Comments Med Refill Encounter Details Date Type Department Care Team ([facility] Contact Info) Description 02/11/2023 Refill [facility] CHC MED & PEDS [address] [place], [place] [phone] Name, MD Boo [address] [place] [address] Migraine without status migrainosus, not intractable, unspecified [...] Upcoming Encounters Date Type Department Care Team ([facility] Contact Info) Description 09/09/2025 3:45 PM EST Office Visit [facility] MEDICINE [address] [place] [address] Name, MD Boo [address] [place] [address] 12/12/2025 10:30 AM EST Telemedicine [facility] MEDICINE [address] [place] [address] Ame Love, RN 12/16/2025 10:15 AM EST Office Visit [facility] CHC ADULT DENTAL [address] [place] [address] Dangelo Pino 01/14/2026 10:30 AM EDT Office Visit [facility] OPTOMETRY [address] [place] [address] Pedro, Katlyn, OD [address] [place] [address] documented as of this encounter Visit Diagnoses Diagnosis Migraine without status migrainosus, not intractable, unspecified migraine type documented in this encounter Additional Health Concerns Assessment Noted Time PHQ-9 Depression Total Score: 6 10/25/20 22 4:10 PM EST documented as of this encounter Care Teams Senior Property Manager Relationship Specialty Start Date End Date Name, MD Boo [address] [place] [address] PCP - General Family Medicine 04/26/19 [place] Orozco PharmD [address] [place] [address] Pharmacist Internal Medicine 02/03/25 Janessa Fraga 11/23/24 documented as of this encounter
--- OUTSIDE RECORDS SUMMARY | 2025-09-04 18:27 | XMS_ITS | Encounter Summary ---
Author Organization [employer] Address [address] [facility] [facility] [address] 7t [place] [address] Care Team Providers Care Cane Flume Watchman Name Role Phone Name, Boo F[place] Primary Care Provider [phone] [place] Orozco PharmD Unavailable [phone] Reason for Visit * Reason Onset Date Comments Nurse Triage 06/19/2024 Encounter Details Date Type Department Care Team ([facility] Contact Info) Description 06/19/2024 Telephone [facility] MEDICINE [address] [place], [place] [phone] Name, MD Boo [address] [place] [address] Nurse Triage Social History Tobacco Use Types [...] the past 12 months, has t he [employer], gas, oil or water company threatened to [...] cough. Pt is offered to come to [facility] today but, declines and is asking to [...] Description 09/09/2025 3:45 PM EST Office Visit [facility] [address] [place] [address] Name, MD Boo [address] [place] [address] 12/12/2025 10:30 AM EST Telemedicine [facility] [address] [place] [address] Ame Love RN 12/16/2025 10:15 AM EST Office Visit [facility] CHC ADULT DENTAL [address] [place] [address] Dangelo Pino 01/14/2026 10:30 AM EDT Office Visit [facility] OPTOMETRY [address] [place] [address] Katlyn Vasquez, LESLEY 230 [place] [address] documented as of this encounter Goals Goal Patient Goal Type Associated Problems Recent Progress Patient-Stated? Author Blood Pressure < 140/90 Blood Pressure 132/76(08/21/2 025 9:46 AM EDT) No Moe Johnson documented as of this encounter Visit Diagnoses Not on filedocumented in this encounter Additional Health Concerns Assessment Noted Time PHQ-9 Depression Total Score: 11 024 11:21 AM EDT documented as of this encounter Care Teams Cane Flume Watchman Relationship Specialty Start Date End Date Name, MD Boo [address] [place] [address] PCP - General Family Medicine 04/26/19 [place] Orozco, LesleyD [address] [place] [address] Pharmacist Internal Medicine 02/03/25 Janessa Fraga 11/23/24 documented as of this encounter
--- OUTSIDE RECORDS SUMMARY | 2025-09-04 18:27 | XMS_ITS | Encounter Summary ---
Author Organization [employer] Address [address] [facility] [address] 7t [place] [address] Care Team Providers Care Car Porter Name Role Phone Name, Boo F[place] Primary Care Provider [phone] [place] Orozco PharmD Unavailable [phone] Reason for Visit * Reason Onset Date Comments Med Refill 10/24/2023 Encounter Details Date Type Department Care Team ([facility] Contact Info) Description 10/24/2023 Telephone [facility] MEDICINE 230 [place], [place] [phone] Name, MD Boo [address] [place] [address] Med Refill Social History Tobacco Use Types [...] refill for Percocet 5/325mg [facility] on 10/24/23. Per [facility] check 10/26/23, pt filled a 28 day supply on 10/24/23. * Telephone Encounter - Mike Yang - 10/24/2023 8:17 AM EST Tc from pt requesting med refill on oxyCODONE-acetaminophen (Percocet) 5-325 MG tablet Please sent to [facility] [place], [place] - [address] documented in this encounter Plan of Treatment Upcoming Encounters Date Type Department Care Team (Late st Contact Info) Description 09/09/2025 3:45 PM EST Office Visit [facility] MEDICINE [address] [place] [address] Name, MD Boo [address] [place] [address] 12/12/2025 10:30 AM EST Telemedicine [facility] MEDICINE [address] [place] [address] Ame Love RN 12/16/2025 10:15 AM EST Office Visit [facility] CHC ADULT DENTAL [address] [facility] [place] [address] Dangelo Pino 01/14/2026 10:30 AM EDT Office Visit [facility] OPTOMETRY [address] [place] [address] Katlyn Vasquez, OD 230 [place] [address] documented as of this encounter Goals Goal [...] documented as of this encounter Care Teams Car Porter Relationship Specialty Start Date End Date Name, MD Boo 230 [place] [address] PCP - General Family Medicine 04/26/19 [place] Orozco PharmD [address] [place] [address] Pharmacist Internal Medicine 02/03/25 Janessa Fraga 11/23/24 documented as of this encounter
--- OUTSIDE RECORDS SUMMARY | 2025-09-04 18:27 | XMS_ITS | Encounter Summary ---
Author Organization [employer] Address 75 [facility] 7t [place] [address] Care Team Providers Care Social Work Msw Name Role Phone Name, Boo FAR[place] Primary Care Provider [phone] [place] Orozco PharmD Unavailable [phone] Reason for Visit * Reason Onset Date Comments PA for tooth 9 08/21/2023 status on case back from lab? 08/21/2023 Encounter Details Date Type Department Care Team ([facility] st Contact Info) Description 08/21/2023 Telephone [facility] ADULT DENTAL [address] [place] [address] He Jimenez, DDS [facility] [place] [address] PA for tooth 9; status on case [...] approved for tooth #8 for crown through [facility] but she is confused as towhy [...] 09/09/2025 3:45 PM EST Office Visit [facility] MEDICINE [address] [place] [address] Name, MD Boo [address] [place] [address] 12/12/2025 10:30 AM EST Telemedicine [address] [address] Ame Love, GEM 12/16/2025 10:15 AM EST Office Visit [facility] CHC ADULT DENTAL [address] [place] [address] Dangelo Pino 01/14/2026 10:30 AM EDT Office Visit [facility] OPTOMETRY [address] [place] [address] Katlyn Vasquez, OD [address] [place] [address] documented as of this encounter Goals Goal [...] documented as of this encounter Care Teams Social Work Msw Relationship Specialty Start Date End Date Name, MD Boo [address] [place] [address] PCP - General Family Medicine 04/26/19 [place] Orozco PharmD [address] [place] [address] Pharmacist Internal Medicine 02/03/25 Janessa Fraga 11/23/24 documented as of this encounter
--- OUTSIDE RECORDS SUMMARY | 2025-09-04 18:27 | XMS_ITS | Encounter Summary ---
Author Organization [employer] Address 75 [facility] 7t [place] [address] Care Team Providers Care Medical Office Administrator Name Role Phone Name, Boo FAR[place] Primary Care Provider [phone] [place] Orozco PharmD Unavailable [phone] Reason for Visit * Reason Comments Med Refill Encounter Details Date Type Department Care Team ([facility] Contact Info) Description 11/21/2023 Refill [facility] MEDICINE [address] [place], [place] [phone] Penny Kang MD [address] [place] [address] Lumbar radiculopathy Social History Tobacco Use Types [...] Description 09/09/2025 3:45 PM EST Office Visit [facility] MEDICINE [address] [place] [address] NameBoo MD [address] [place] [address] 12/12/2025 10:30 AM EST Telemedicine [facility] MEDICINE [address] [place] [address] Ame Love RN 12/16/2025 10:15 AM EST Office Visit [facility] CHC ADULT DENTAL [address] [place] [address] Dangelo Pino 01/14/2026 10:30 AM EDT Office Visit [facility] OPTOMETRY [address] [place] [address] Katlyn Vasquez, OD [address] [place] [address] documented as of this encounter Goals Goal [...] documented as of this encounter Care Teams Medical Office Administrator Relationship Specialty Start Date End Date Name, MD Boo [address] [place], [place] [phone] PCP - General Family Medicine 04/26/19 [place] Orozco, LesleyD [address] [place] [address] Pharmacist Internal Medicine 02/03/25 Janessa Fraga 11/23/24 documented as of this encounter
--- OUTSIDE RECORDS SUMMARY | 2025-09-04 18:27 | XMS_ITS | Encounter Summary ---
Author Organization [employer] Address [address] [facility] [address] 7t [place] [address] Care Team Providers Care Lettuce Trimmer Name Role Phone Name, Boo FAR[place] Primary Care Provider [phone] [place] Orozco PharmD Unavailable [phone] Reason for Visit * Reason Onset Date Comments PT-1 11/24/2023 Encounter Details Date Type Department Care Team ([facility] Contact Info) Description 11/24/2023 Telephone [facility] MEDICINE [address] [place], [place] [phone] Name, MD Boo [address] [place] [address] PT-1 Social History Tobacco Use Types Packs/Day [...] insurance . Which is [employer] due to [facility] not covering transportation . Please call daughter at [phone] * Telephone Encounter - Pippa Wilson - 11/24/2023 11:57 AM EST We are unable to process PT1 for [facility]. Pt would have to contact insurance to request transportation services. * Telephone Encounter - Andrew Emery - 11/24/2023 11:08 AM EST PT1 needed Date: 12/06/2023 Time 2:45 Visits: 3 Address: [address] [place], [place] Facility: [facility] Wheel Chair: no Edi Consultant Needed: no PT1 needed Date: 12/08/2023 Time: 11:00 Visits: 3 Address: [address] [place], [place] Facility: [facility] Wheel Chair: No Edi Consultant Needed: No PT1 needed Date: 12/12/2023 Time: 3:45 Visits: 3 Address: [address] [place] [address] Facility: [facility] Wheel Chair: no Edi Consultant Needed: no documented in this encounter Plan of Treatment Upcoming Encounters Date Type Department Care Team (Late st Contact Info) Description 09/09/2025 3:45 PM EST Office Visit [facility] MEDICINE [address] [place] [address] Boo Hastings MD [address] [place] [address] 12/12/2025 10:30 AM EST Telemedicine [facility] MEDICINE [address] [place] [address] Ame Love RN 12/16/2025 10:15 AM EST Office Visit [facility] CHC ADULT DENTAL [address] [place], [place] [phone] Dangelo Pino 01/14/2026 10:30 AM EDT Office Visit [facility] OPTOMETRY [address] [place] [address] Katlyn Vasquez, OD [address] [place] [address] documented as of this encounter Goals Goal [...] documented as of this encounter Care Teams Lettuce Trimmer Relationship Specialty Start Date End Date Boo Hastings MD [address] [place] [address] PCP - General Family Medicine 04/26/19 [place] Orozco PharmD [address] [place] [address] Pharmacist Internal Medicine 02/03/25 Janessa Fraga 11/23/24 documented as of this encounter
--- OUTSIDE RECORDS SUMMARY | 2025-09-04 18:27 | XMS_ITS | Encounter Summary ---
Author Organization [employer] Address 75 [facility] 7t [place] [address] Care Team Providers Care Mental Health Practitioner Name Role Phone Name, Boo F[place] Primary Care Provider [phone] [place] Orozco PharmD Unavailable [phone] Reason for Visit * Reason Comments Med Refill Encounter Details Date Type Department Care Team ([facility] Contact Info) Description 02/16/2023 Refill [facility] MEDICINE [address] [place], [place] [phone] Name, MD Boo [address] [place] [address] Social History Tobacco Use Types Packs/Day Years [...] Upcoming Encounters Date Type Department Care Team ([facility] Contact Info) Description 09/09/2025 3:45 PM EST Office Visit [facility] MEDICINE [address] [place] [address] Name, MD Boo [address] [place] [address] 12/12/2025 10:30 AM EST Telemedicine [facility] MEDICINE [address] [place] [address] Ame Love, RN 12/16/2025 10:15 AM EST Office Visit [facility] CHC ADULT DENTAL [address] [place] [address] Dangelo Pino 01/14/2026 10:30 AM EDT Office Visit [facility] OPTOMETRY [address] [place] [address] Katlyn Vasquez, OD [address] [place] [address] documented as of this encounter Visit Diagnoses Not on filedocumented in this encounter Additional Health Concerns Assessment Noted Time PHQ-9 Depression Total Score: 6 10/25/20 22 4:10 PM EST documented as of this encounter Care Teams Mental Health Practitioner Relationship Specialty Start Date End Date Name, MD Boo [address] [place] [phone] PCP - General Family Medicine 04/26/19 [place] Orozco PharmD [address] [place] [address] Pharmacist Internal Medicine 02/03/25 Janessa Fraga 11/23/24 documented as of this encounter
--- OUTSIDE RECORDS SUMMARY | 2025-09-04 18:28 | XMS_ITS | Encounter Summary ---
Author Organization [employer] Address 75 [facility] 7t [place] [address] Care Team Providers Care Maintenance Planner Name Role Phone Name, Boo FAR[place] Primary Care Provider [phone] [place] Orozco PharmD Unavailable [phone] Encounter Details Date Type Department Care Team ([facility] Contact Info) Description 04/18/2023 Abstract [facility] MEDICINE [address] [place] [address] Name, MD Boo [address] [place] [address] Social History Tobacco Use Types Packs/Day Years [...] Upcoming Encounters Date Type Department Care Team ([facility] Contact Info) Description 09/09/2025 3:45 PM EST Office Visit [facility] MEDICINE [address] [place] [address] Name, MD Boo 230 [facility] [place] [address] 12/12/2025 10:30 AM EST Telemedicine [facility] MEDICINE [address] [place] [address] Ame Love RN 12/16/2025 10:15 AM EST Office Visit [facility] CHC ADULT DENTAL [address] [place], [place] [phone] Dangelo Pino 01/14/2026 10:30 AM EDT Office Visit [facility] OPTOMETRY [address] [place], [place] [phone] Katlyn Vasquez, OD [address] [place] [address] documented as of this encounter Procedures Procedure Name Priority Date/Time Associated Diagnosis Comments COLONOSCOPY Routine 08/02/2022 10:14 AM EDT documented in this encounter Results * Colonoscopy (08/02/2022 10:14 AM EDT) Colonoscopy Normal Normal Narrative Anita Marroquin - 08/02/2022 10:14 AM EDT Recommended 5 year follow up us Historical Provider HEALTH MAINTENANCE Edited Result - Final documented in this encounter Visit Diagnoses Not on filedocumented in this encounter Additional Health Concerns Assessment Noted Time PHQ-9 Depression Total Score: 6 10/25/20 22 4:10 PM EST documented as of this encounter Care Teams Maintenance Planner Relationship Specialty Start Date End Date Name, [place] [address] PCP - General Family Medicine 04/26/19 [place] [address] Pharmacist Internal Medicine 02/03/25 Janessa Fraga 11/23/24 documented as of this encounter
--- OUTSIDE RECORDS SUMMARY | 2025-09-04 18:28 | XMS_ITS | Encounter Summary ---
Author Organization [email or web address] Address [address] [facility] 7t [place] [address] Care Team Providers Care Lap Cutter Name Role Phone Name, Boo FARLEY Primary Care Provider [phone] Ira Orozco PharmD Unavailable [phone] Reason for Visit * Reason Comments Med Refill Encounter Details Date Type Department Care Team ([facility] Contact Info) Description 07/30/2024 Refill [facility] MEDICINE 230 [place], [place] [phone] Name, MD Boo 230 [place] [address] Lumbar radiculopathy Social History Tobacco Use Types [...] 09/09/2025 3:45 PM EST Office Visit [facility] MEDICINE [address] [place] [address] Name, MD Boo 230 [place] [address] 12/12/2025 10:30 AM EST Telemedicine [facility] MEDICINE 230 [place] [address] Ame Love, GEM 12/16/2025 10:15 AM EST Office Visit [facility] CHC ADULT DENTAL [address] [place] [address] Dangelo Pino 01/14/2026 10:30 AM EDT Office Visit [facility] OPTOMETRY [address] [place] [address] Katlyn Vasquez, OD 230 [place] [address] documented as of this encounter Goals Goal Patient Goal Type Associated Problems Recent Progress Patient-Stated? Author Blood Pressure < 140/90 Blood Pressure 132/76( 025 9:46 AM EDT) Meo Mcgee documented as of this encounter Visit Diagnoses Diagnosis Lumbar radiculopathy Thoracic or lumbosacral neuritis or radiculitis, unspecified documented in this encounter Additional Health Concerns Assessment Noted Time PHQ-9 Depression Total Score: 11 024 11:21 AM EDT documented as of this encounter Care Teams Lap Cutter Relationship Specialty Start Date End Date Name, MD Boo 230 [place] [address] PCP - General Family Medicine 04/26/19 Ira Orozco, Nelida 230 [place] [address] Pharmacist Internal Medicine 02/03/25 Janessa Fraga 11/23/24 documented as of this encounter
--- OUTSIDE RECORDS SUMMARY | 2025-09-04 18:28 | XMS_ITS | Encounter Summary ---
Author Organization [employer] Address 75 [facility] 7t [place] [address] Care Team Providers Care Wind Instrument Repairer Name Role Phone Name, Boo FARLEY Primary Care Provider [phone] Ira Orozco PharmD Unavailable [phone] Reason for Visit * Reason Comments Med Refill Encounter Details Date Type Department Care Team ([facility] Contact Info) Description 02/14/2024 Refill [facility] MEDICINE 230 [place], [place] [phone] Name, MD Boo 230 [place], [place] [phone] Fibromyalgia Social History Tobacco Use Types Packs/Day [...] Description 09/09/2025 3:45 PM EST Office Visit [facility] [address] [place] [address] Boo Hastings MD [address] [place] [address] 12/12/2025 10:30 AM EST Telemedicine [facility] MED[facility] 230 [place] [address] Ame Love RN 12/16/2025 10:15 AM EST Office Visit [facility] CHC ADULT DENTAL [address] [place] [address] Dangelo Pino 01/14/2026 10:30 AM EDT Office Visit [facility] OPTOMETRY [address] [place] [address] Katlyn Vasquez, OD 230 [place] [address] documented as of this encounter Goals Goal [...] as of this encounter Care Teams Wind Instrument Repairer Relationship Specialty Start Date End Date Boo Hastings MD [address] [place] [address] PCP - General Family Medicine 04/26/19 Ira Orozco PharmD 230 [place] [address] Pharmacist Internal Medicine 02/03/25 Janessa Fraga 11/23/24 documented as of this encounter
--- OUTSIDE RECORDS SUMMARY | 2025-09-04 18:28 | XMS_ITS | Encounter Summary ---
Author Organization [employer] Address 75 [facility] 7t [place] [address] Care Team Providers Care Home Aid Name Role Phone Name, Boo FARLEY Primary Care Provider [phone] Ira Orozco PharmD Unavailable [phone] Reason for Visit * Reason Comments Med Refill Encounter Details Date Type Department Care Team ([facility] Contact Info) Description 05/01/2023 Refill [facility] WALK[facility]IN C[facility] 230 [place], [place] [phone] Nazia Curiel FNP Acute pain of right shoulder Social History [...] Upcoming Encounters Date Type Department Care Team ([facility] Contact Info) Description 09/09/2025 3:45 PM EST Office Visit [facility] MEDICINE 230 [place] [address] Name, MD Boo 230 [place] [address] 12/12/2025 10:30 AM EST Telemedicine [facility] MEDICINE 230 [place] [address] Ame Love, RN 12/16/2025 10:15 AM EST Office Visit [facility] CHC ADULT DENTAL [address] [place] [address] Dangelo Pino 01/14/2026 10:30 AM EDT Office Visit [facility] OPTOMETRY [address] [place] [address] Katlyn Vasquez, OD 230 [place] [address] documented as of this encounter Visit Diagnoses Diagnosis Acute pain of right shoulder documented in this encounter Additional Health Concerns Assessment Noted Time PHQ-9 Depression Total Score: 6 10/25/20 22 4:10 PM EST documented as of this encounter Care Teams Home Aid Relationship Specialty Start Date End Date Name, MD Boo 230 [place] [address] PCP - General Family Medicine 04/26/19 Ira Orozco PharmD [address] [place] [address] Pharmacist Internal Medicine 02/03/25 Janessa Fraga 11/23/24 documented as of this encounter
--- OUTSIDE RECORDS SUMMARY | 2025-09-04 18:28 | XMS_ITS | Encounter Summary ---
Author Organization [employer] Address 75 [facility] 7t [place] [address] Care Team Providers Care Wild Oyster Harvester Name Role Phone Name, Boo FARLEY Primary Care Provider [phone] Ira Orozco PharmD Unavailable Reason for Visit * Reason Comments Med Refill Encounter Details Date Type Department Care Team ([facility] Contact Info) Description 04/17/2023 Refill [facility] WALK[facility] C[facility] 230 [place], [place] [phone] Nazia Curiel FNP Acute pain of right [...] Upcoming Encounters Date Type Department Care Team ([facility] Contact Info) Description 09/09/2025 3:45 PM EST Office Visit [facility] MEDICINE 230 [place] [address] Name, MD Boo 230 [place] [address] 12/12/2025 10:30 AM EST Telemedicine [facility] MEDICINE 230 [place] [address] Ame Love, RN 12/16/2025 10:15 AM EST Office Visit [facility] CHC ADULT DENTAL [address] [place] [address] Dangelo Pino 01/14/2026 10:30 AM EDT Office Visit [facility] OPTOMETRY [address] [place] [address] Katlyn Vasquez, OD 230 [place] [address] documented as of this encounter Visit Diagnoses Diagnosis Acute pain of right shoulder documented in this encounter Additional Health Concerns Assessment Noted Time PHQ-9 Depression Total Score: 6 10/25/20 22 4:10 PM EST documented as of this encounter Care Teams Wild Oyster Harvester Relationship Specialty Start Date End Date Name, MD Boo 230 [place] [address] PCP - General Family Medicine 04/26/19 Ira Orozco PharmD [address] [place] [address] Pharmacist Internal Medicine 02/03/25 Janessa Fraga 11/23/24 documented as of this encounter
--- OUTSIDE RECORDS SUMMARY | 2025-09-04 18:29 | XMS_ITS | Encounter Summary ---
Author Organization [employer] Address [address] [facility] 7t [place] [address] Care Team Providers Care Radiation Control Health Physicist Name Role Phone Name, Boo FARLEY Primary Care Provider [phone] Ira Orozco PharmD Unavailable [phone] Reason for Visit * Reason Comments Med Refill Encounter Details Date Type Department Care Team ([facility] Contact Info) Description 02/22/2023 Refill [facility] MEDICINE 230 [place], [place] [phone] Name, MD Boo 230 [place] [address] Social History Tobacco Use Types Packs/Day Years [...] Upcoming Encounters Date Type Department Care Team ([facility] Contact Info) Description 09/09/2025 3:45 PM EST Office Visit [facility] MEDICINE 230 [place] [address] Name, MD Boo 230 [place] [address] 12/12/2025 10:30 AM EST Telemedicine [facility] MEDICINE 230 [place] [address] Ame Love, RN 12/16/2025 10:15 AM EST Office Visit [facility] CHC ADULT DENTAL [address] [place] [address] Dangelo Pino 01/14/2026 10:30 AM EDT Office Visit [facility] OPTOMETRY [address] [place] [address] Katlyn Vasquez, OD 230 [place] [address] documented as of this encounter Visit Diagnoses Not on filedocumented in this encounter Additional Health Concerns Assessment Noted Time PHQ-9 Depression Total Score: 6 10/25/20 22 4:10 PM EST documented as of this encounter Care Teams Radiation Control Health Physicist Relationship Specialty Start Date End Date Name, MD Boo [address] [place] [address] PCP - General Family Medicine 04/26/19 Ira Orozco PharmD [address] [place] [address] Pharmacist Internal Medicine 02/03/25 Janessa Fraga 11/23/24 documented as of this encounter
--- OUTSIDE RECORDS SUMMARY | 2025-09-04 18:29 | XMS_ITS | Encounter Summary ---
Author Organization [employer] Address [address] [facility] [address] 7t [place] [address] Care Team Providers Care Hi Low Truck Driver Name Role Phone Name, Boo FARLEY Primary Care Provider [phone] Ira Orozco PharmD Unavailable [phone] Reason for Visit * Reason Onset Date Comments Medication Question 09/20/2024 Encounter Details Date Type Department Care Team ([facility] Contact Info) Description 09/20/2024 Telephone [facility] MEDICINE 230 [place], [place] [phone] Name, MD Boo 230 [place] [address] Medication Question Social History Tobacco Use Types [...] t he electric, gas, oil or water [employer] threatened to shut off services in your [...] patch not be genetic. Contact pt at [phone] documented in this encounter Plan of Treatment Upcoming Encounters Date Type Department Care Team (Late st Contact Info) Description 09/09/2025 3:45 PM EST Office Visit [facility] MEDICINE [address] [place] [address] Name, MD Boo [address] [place] [address] 12/12/2025 10:30 AM EST Telemedicine [facility] MEDICINE [address] [place] [address] Ame Love RN 12/16/2025 10:15 AM EST Office Visit [facility] CHC ADULT DENTAL [address] [place] [address] Dangelo Pino 01/14/2026 10:30 AM EDT Office Visit [facility] OPTOMETRY [address] [place], [place] [phone] Katlyn Vasquez, OD 230 [place] [address] documented as of this encounter Goals Goal [...] documented as of this encounter Care Teams Hi Low Truck Driver Relationship Specialty Start Date End Date Name, MD Boo 230 [place] [address] PCP - General Family Medicine 04/26/19 Ira Orozco PharmD 230 [place] [address] Pharmacist Internal Medicine 02/03/25 Janessa Fraga 11/23/24 documented as of this encounter
--- OUTSIDE RECORDS SUMMARY | 2025-09-04 18:29 | XMS_ITS | Encounter Summary ---
Author Organization [employer] Address 75 [facility] 7t [place] [address] Care Team Providers Care Adviser Sales Name Role Phone Name, Boo FARLEY Primary Care Provider [phone] Ira Orozco PharmD Unavailable [phone] Reason for Visit * Reason Comments Med Refill Encounter Details Date Type Department Care Team ([facility] Contact Info) Description 04/21/2023 Refill [facility] 230 [place], [place] [phone] Name, MD Boo 230 [place] [address] Moderate persistent asthma without complication Social History [...] Upcoming Encounters Date Type Department Care Team ([facility] Contact Info) Description 09/09/2025 3:45 PM EST Office Visit [facility] MEDICINE 230 [place] [address] Name, MD Boo 230 [place] [address] 12/12/2025 10:30 AM EST Telemedicine [facility] MED[facility] 230 [place] [address] Ame Love, RN 12/16/2025 10:15 AM EST Office Visit [facility] CHC ADULT DENTAL [address] [place] [address] Dangelo Pino 01/14/2026 10:30 AM EDT Office Visit [facility] OPTOMETRY 267 [place] [address] Katlyn Vasquez, OD 230 [place] [address] documented as of this encounter Visit Diagnoses Diagnosis Moderate persistent asthma without complication documented in this encounter Additional Health Concerns Assessment Noted Time PHQ-9 Depression Total Score: 6 10/25/20 22 4:10 PM EST documented as of this encounter Care Teams Adviser Sales Relationship Specialty Start Date End Date Name, MD Boo [address] [place] [address] PCP - General Family Medicine 04/26/19 Ira Orozco PharmD [address] [place] [address] Pharmacist Internal Medicine 02/03/25 Janessa Fraga 11/23/24 documented as of this encounter
--- OUTSIDE RECORDS SUMMARY | 2025-09-04 18:29 | XMS_ITS | Encounter Summary ---
Author Organization [employer] Address 75 [facility] 7t [place] [address] Care Team Providers Care Knife Grinder Name Role Phone Name, Boo FARLEY Primary Care Provider [phone] Ira Orozco PharmD Unavailable [phone] Reason for Visit * Reason Onset Date Comments Request For Order(s) 01/03/2024 Encounter Details Date Type Department Care Team ([facility] Contact Info) Description 01/03/2024 Telephone [facility] MEDICINE 230 [place] [address] Name, MD Boo 230 [place] [address] Request For Order(s) Social History Tobacco Use [...] triaged today (01/03). Please contact pt at [phone] documented in this encounter Plan of Treatment Upcoming Encounters Date Type Department Care Team (Late st Contact Info) Description 09/09/2025 3:45 PM EST Office Visit [address] [address] Name, MD Boo [address] [place] [address] 12/12/2025 10:30 AM EST Telemedicine [address] [address] Ame Love RN 12/16/2025 10:15 AM EST Office Visit [facility] CHC ADULT DENTAL [address] [place] [address] Dangelo Pino 01/14/2026 10:30 AM EDT Office Visit [facility] OPTOMETRY [address] [place] [address] Katlyn Vasquez, OD 230 [place] [address] documented as of this encounter Goals Goal [...] documented as of this encounter Care Teams Knife Grinder Relationship Specialty Start Date End Date Name, MD Boo 230 [place] [address] PCP - General Family Medicine 04/26/19 Ira Orozco PharmD 230 [place] [address] Pharmacist Internal Medicine 02/03/25 Janessa Fraga 11/23/24 documented as of this encounter
--- OUTSIDE RECORDS SUMMARY | 2025-09-04 18:29 | XMS_ITS | Encounter Summary ---
Author Organization [employer] Address [address] [facility] 7t [place] [address] Care Team Providers Care Covered Buckle Assembler Name Role Phone Name, Boo FARLEY Primary Care Provider [phone] Ira Orozco PharmD Unavailable [phone] Reason for Visit * Reason Comments Med Refill Encounter Details Date Type Department Care Team ([facility] Contact Info) Description 04/21/2023 Refill [facility] WALK-IN CENTER [address], [place] [phone] Nazia Curiel FNP Acute pain of right [...] Upcoming Encounters Date Type Department Care Team ([facility] Contact Info) Description 09/09/2025 3:45 PM EST Office Visit [facility] MEDICINE [address] [place] [address] Name, MD Boo [address] [place] [address] 12/12/2025 10:30 AM EST Telemedicine [facility] MEDICINE [address] [place] [address] Ame Love, RN 12/16/2025 10:15 AM EST Office Visit [facility] CHC ADULT DENTAL [address] [place] [address] Dangelo Pino 01/14/2026 10:30 AM EDT Office Visit [facility] OPTOMETRY [address] [place] [address] Katlyn Vasquez, OD 230 [place] [address] documented as of this encounter Visit Diagnoses Diagnosis Acute pain of right shoulder documented in this encounter Additional Health Concerns Assessment Noted Time PHQ-9 Depression Total Score: 6 10/25/20 22 4:10 PM EST documented as of this encounter Care Teams Covered Buckle Assembler Relationship Specialty Start Date End Date Name, MD Boo [address] [place] [address] PCP - General Family Medicine 04/26/19 Ira Orozco PharmD [address] [place] [address] Pharmacist Internal Medicine 02/03/25 Janessa Fraga 11/23/24 documented as of this encounter
--- OUTSIDE RECORDS SUMMARY | 2025-09-04 18:29 | XMS_ITS | Encounter Summary ---
Author Organization [employer] Address 75 [facility] 7t [place] [address] Care Team Providers Care Labor Relations Or Personnel Negotiator Name Role Phone Name, Boo FARLEY Primary Care Provider [phone] Ira Orozco PharmD Unavailable [phone] Reason for Visit * Reason Comments Med Refill Encounter Details Date Type Department Care Team ([facility] Contact Info) Description 05/01/2023 Refill [facility] MEDICINE 230 [place], [place] [phone] Name, MD Boo 230 [place] [address] Moderate persistent asthma without complication Social History [...] Upcoming Encounters Date Type Department Care Team ([facility] Contact Info) Description 09/09/2025 3:45 PM EST Office Visit [facility] MEDICINE 230 [place] [address] Name, MD Boo 230 [place] [address] 12/12/2025 10:30 AM EST Telemedicine [facility] MEDICINE 230 [place] [address] Ame Love, RN 12/16/2025 10:15 AM EST Office Visit [facility] CHC ADULT DENTAL [address] [place] [address] Dangelo Pino 01/14/2026 10:30 AM EDT Office Visit [facility] OPTOMETRY [address] [place] [address] Katlyn Vasquez, OD 230 [place] [address] documented as of this encounter Visit Diagnoses Diagnosis Moderate persistent asthma without complication documented in this encounter Additional Health Concerns Assessment Noted Time PHQ-9 Depression Total Score: 6 10/25/20 22 4:10 PM EST documented as of this encounter Care Teams Labor Relations Or Personnel Negotiator Relationship Specialty Start Date End Date Name, MD Boo [address] [place] [address] PCP - General Family Medicine 04/26/19 Ira Orozco PharmD [address] [place] [address] Pharmacist Internal Medicine 02/03/25 Janessa Fraga 11/23/24 documented as of this encounter
--- OUTSIDE RECORDS SUMMARY | 2025-09-04 18:29 | XMS_ITS | Encounter Summary ---
Author Organization [employer] Address 75 [facility] 7t [place] [address] Care Team Providers Care Host Name Role Phone Name, Boo FARLEY Primary Care Provider [phone] Ira Orozco PharmD Unavailable [phone] Reason for Visit * Reason Comments Med Refill Encounter Details Date Type Department Care Team ([facility] Contact Info) Description 03/15/2024 Refill [facility] MEDICINE 230 [place], [place] [phone] Name, MD Boo 230 [place], [place] [phone] Chronic pain syndrome Social History Tobacco Use [...] Description 09/09/2025 3:45 PM EST Office Visit [facility] MEDICINE [address] [place] [address] Boo Hastings MD [address] [place] [address] 12/12/2025 10:30 AM EST Telemedicine [facility] MEDICINE 230 [place] [address] Ame Love, GEM 12/16/2025 10:15 AM EST Office Visit [facility] CHC ADULT DENTAL [address] [place] [address] Dangelo Pino 01/14/2026 10:30 AM EDT Office Visit [facility] OPTOMETRY [address] [place] [address] Katlyn Vasquez, OD 230 [place] [address] documented as of this encounter Goals Goal [...] documented as of this encounter Care Teams Host Relationship Specialty Start Date End Date NameBoo MD [address] [place] [address] PCP - General Family Medicine 04/26/19 Ira Orozco, LesleyD [address] [place] [address] [place] [phone] Pharmacist Internal Medicine 02/03/25 Janessa Fraga 11/23/24 documented as of this encounter
--- OUTSIDE RECORDS SUMMARY | 2025-09-04 18:29 | XMS_ITS | Encounter Summary ---
Author Organization [employer] Address [address] [facility] [address] 7t [place] [address] Care Team Providers Care Client Account Representative Name Role Phone Name, Boo FARLEY Primary Care Provider [phone] Ira Orozco PharmD Unavailable [phone] Reason for Visit * Reason Onset Date Comments Med Refill 01/03/2024 Encounter Details Date Type Department Care Team ([facility] Contact Info) Description 01/03/2024 Telephone [facility] MEDICINE 230 [place], [place] [phone] Name, MD Boo 230 [place] [address] Med Refill Social History Tobacco Use Types [...] Lidoderm 5% patches [facility] [place] [facility] [address] [facility]. States she does not want generic, only brand name. documented in this encounter Plan of Treatment Upcoming Encounters Date Type Department Care Team (Late st Contact Info) Description 09/09/2025 3:45 PM EST Office Visit [facility] MEDICINE [address] [place] [address] Name, MD Boo [address] [place] [address] 12/12/2025 10:30 AM EST Telemedicine [facility] MEDICINE [address] [place] [address] Ame Love RN 12/16/2025 10:15 AM EST Office Visit [facility] CHC ADULT DENTAL [address] [place] [address] Dangelo Pino 01/14/2026 10:30 AM EDT Office Visit [facility] OPTOMETRY [address] [place], [place] [phone] Katlyn Vasquez, OD 230 [place] [address] documented as of this encounter Goals Goal [...] documented as of this encounter Care Teams Client Account Representative Relationship Specialty Start Date End Date Name, MD Boo 230 [place] [address] PCP - General Family Medicine 04/26/19 Ira Orozco PharmD 230 [place] [address] Pharmacist Internal Medicine 02/03/25 Janessa Fraga 11/23/24 documented as of this encounter
--- OUTSIDE RECORDS SUMMARY | 2025-09-04 18:29 | XMS_ITS | Encounter Summary ---
Author Organization [employer] Address 75 [facility] 7t [place] [address] Care Team Providers Care Sales Analytics Manager Name Role Phone Name, Boo FARLEY Primary Care Provider [phone] Ira Orozco PharmD Unavailable [phone] Reason for Visit * Reason Comments Med Refill Encounter Details Date Type Department Care Team ([facility] Contact Info) Description 05/10/2023 Refill [facility] MEDICINE [address] [place], [place] [phone] Name, MD Boo 230 [place] [address] Moderate persistent asthma without complication; Chronic pain [...] Encounters Date Type Department Care Team ([facility] Contact Info) Description 09/09/2025 3:45 PM EST Office Visit [facility] MEDICINE 230 [place] [address] Name, MD Boo 230 [place] [address] 12/12/2025 10:30 AM EST Telemedicine [facility] MEDICINE [address] [place] [address] Ame Love, GEM 12/16/2025 10:15 AM EST Office Visit [facility] CHC ADULT DENTAL [address] [place] [address] Dangelo Pino 01/14/2026 10:30 AM EDT Office Visit [facility] OPTOMETRY [address] [place] [address] PedroTravis santosn, OD 230 [place] [address] documented as of this encounter Visit Diagnoses Diagnosis Moderate persistent asthma without complication Chronic pain syndrome documented in this encounter Additional Health Concerns Assessment Noted Time PHQ-9 Depression Total Score: 6 10/25/20 22 4:10 PM EST documented as of this encounter Care Teams Sales Analytics Manager Relationship Specialty Start Date End Date Name, MD Boo [address] [place] [address] PCP - General Family Medicine 04/26/19 Ira Orozco PharmD [address] [place] [address] Pharmacist Internal Medicine 02/03/25 Janessa Fraga 11/23/24 documented as of this encounter
--- OUTSIDE RECORDS SUMMARY | 2025-09-04 18:30 | XMS_ITS | Encounter Summary ---
Author Organization [employer] Address [address] [facility] [address] 7t [place] [address] Care Team Providers Care Sales Representative [employer] Name Role Phone Name, Boo FARLEY Primary Care Provider [phone] Ira Orozco PharmD Unavailable [phone] Encounter Details Date Type Department Care Team ([facility] Contact Info) Description 01/22/2024 Orders Only [facility] MEDICINE 230 [place], [place] [phone] Bel Moreno MD 230 [place] [address] Social History Tobacco Use Types Packs/Day Years [...] Description 09/09/2025 3:45 PM EST Office Visit [facility] MEDICINE [address] [place] [address] NameBoo MD [address] [place] [address] 12/12/2025 10:30 AM EST Telemedicine [facility] MEDICINE [address] [place] [address] Ame Love, GEM 12/16/2025 10:15 AM EST Office Visit [facility] CHC ADULT DENTAL [address] [place] [address] Dangelo Pino 01/14/2026 10:30 AM EDT Office Visit [facility] OPTOMETRY [address] [place] [address] Pedro, Katlyn, OD 230 [place] [address] documented as of this encounter Goals Goal [...] as of this encounter Care Teams Sales Representative [employer] Relationship Specialty Start Date End Date NameBoo MD [address] [place] [address] PCP - General Family Medicine 04/26/19 Ira Orozco, LesleyD [address] [place] [address] Pharmacist Internal Medicine 02/03/25 Janessa Fraga 11/23/24 documented as of this encounter
--- OUTSIDE RECORDS SUMMARY | 2025-09-04 18:30 | XMS_ITS | Encounter Summary ---
Author Organization [employer] Address 75 [facility] 7t [place] [address] Care Team Providers Care Sanitation Tank Washer Name Role Phone Name, Boo FARLEY Primary Care Provider [phone] Ira Orozco PharmD Unavailable [phone] Reason for Visit * Reason Onset Date Comments PA 12/17/2024 Encounter Details Date Type Department Care Team ([facility] Contact Info) Description 12/17/2024 Telephone [facility] MEDICINE 230 [place], [place] [phone] Name, MD Boo 230 [place] [address] PA Social History Tobacco Use Types Packs/Day [...] (Lidoderm) 5 % patch Contact pt at [phone] documented in this encounter Plan of Treatment Upcoming Encounters Date Type Department Care Team ([facility] st Contact Info) Description 09/09/2025 3:45 PM EST Office Visit [facility] MEDICINE 230 [place] [address] Name, MD Boo 230 [place] [address] 12/12/2025 10:30 AM EST Telemedicine [facility] MEDICINE 230 [place] [address] Ame Love, RN 12/16/2025 10:15 AM EST Office Visit [facility] CHC ADULT DENTAL [address] [place] [address] Dangelo Pino 01/14/2026 10:30 AM EDT Office Visit [facility] OPTOMETRY [address] [place] [address] Katlyn Vasquez, OD 230 [place] [address] documented as of this encounter Goals Goal [...] documented as of this encounter Care Teams Sanitation Tank Washer Relationship Specialty Start Date End Date Name, MD Boo 230 [place] [address] PCP - General Family Medicine 04/26/19 Ira Orozco PharmD 230 [place] [address] Pharmacist Internal Medicine 02/03/25 Janessa Fraga 11/23/24 documented as of this encounter
--- OUTSIDE RECORDS SUMMARY | 2025-09-04 18:30 | XMS_ITS | Encounter Summary ---
Author Organization [employer] Address 75 [facility] 7t [place] [address] Care Team Providers Care Fingerprint Technician Name Role Phone Name, Boo FARLEY Primary Care Provider [phone] Ira Orozco PharmD Unavailable [phone] Reason for Visit * Reason Onset Date Comments Appointment Request 01/06/2025 Encounter Details Date Type Department Care Team ([facility] Contact Info) Description 01/06/2025 Telephone [facility] MEDICINE 230 [place], [place] [phone] Name, MD Boo 230 [place] [address] Appointment Request Social History Tobacco Use Types [...] r/s Apt from 01/06/25. Conatatc pt at [phone] documented in this encounter Plan of Treatment Upcoming Encounters Date Type Department Care Team (Late st Contact Info) Description 09/09/2025 3:45 PM EST Office Visit [facility] MEDICINE [address] [place] [address] Name, MD Boo [address] [place] [address] 12/12/2025 10:30 AM EST Telemedicine [facility] MEDICINE [address] [place] [address] Ame Love RN 12/16/2025 10:15 AM EST Office Visit [facility] CHC ADULT DENTAL [address] [place] [address] Dangelo Pino 01/14/2026 10:30 AM EDT Office Visit [facility] OPTOMETRY [address] [place], [place] [phone] Katlyn Vasquez, OD 230 [place] [address] documented as of this encounter Goals Goal [...] documented as of this encounter Care Teams Fingerprint Technician Relationship Specialty Start Date End Date Name, MD Boo 230 [place] [address] PCP - General Family Medicine 04/26/19 Ira Orozco PharmD 230 [place] [address] Pharmacist Internal Medicine 02/03/25 Janessa Fraga 11/23/24 documented as of this encounter
--- OUTSIDE RECORDS SUMMARY | 2025-09-04 18:30 | XMS_ITS | Encounter Summary ---
Author Organization [employer] Address [address] [facility] [address] 7t [place] [address] Care Team Providers Care Fire Prevention Chief Name Role Phone Name, Boo FARLEY Primary Care Provider [phone] Ira Orozco PharmD Unavailable [phone] Encounter Details Date Type Department Care Team ([facility] Contact Info) Description 01/17/2025 Telephone [facility] MEDICINE 230 [place], [place] [phone] Name, MD Boo 230 [place] [address] Social History Tobacco Use Types Packs/Day Years [...] EST Office Visit [facility] MEDICINE 230 [place] [address] Name, MD Boo 230 [place] [address] 12/12/2025 10:30 AM EST Telemedicine [facility] MEDICINE 230 [place] [address] Ame Love, RN 12/16/2025 10:15 AM EST Office Visit [facility] CHC ADULT DENTAL [address] [place] [address] Dangelo Pino 01/14/2026 10:30 AM EDT Office Visit [facility] OPTOMETRY [address] [place] [address] Katlyn Vasquez, LESLEY 230 [place] [address] documented as of this encounter Goals Goal [...] documented as of this encounter Care Teams Fire Prevention Chief Relationship Specialty Start Date End Date Name, MD Boo 230 [place] [address] PCP - General Family Medicine 04/26/19 Ira Orozco PharmD 230 [place] [address] Pharmacist Internal Medicine 02/03/25 Janessa Fraga 11/23/24 documented as of this encounter
--- OUTSIDE RECORDS SUMMARY | 2025-09-04 18:30 | XMS_ITS | Encounter Summary ---
Author Organization [employer] Address [address] [facility] [address] 7t [place] [address] Care Team Providers Care Kiln Puller Name Role Phone Name, Boo FARLEY Primary Care Provider [phone] Ira Orozco PharmD Unavailable [phone] Reason for Visit * Reason Onset Date Comments Med Refill 01/19/2024 Encounter Details Date Type Department Care Team ([facility] Contact Info) Description 01/19/2024 Telephone [facility] MEDICINE 230 [place], [place] [phone] Name, MD Boo 230 [place] [address] Med Refill Social History Tobacco Use Types [...] 9:01 AM EDT Medication was sent to [facility] on 01/16/24. * Telephone Encounter - Mike Yang - 01/19/2024 8:52 AM EDT TC from pt requesting medication refill. Medications needing refill : IBU 800 MG tablet To be sent to: [facility] - [place], [place] - [address] [facility] documented in this encounter Plan of Treatment Upcoming Encounters Date Type Department Care Team (Late st Contact Info) Description 09/09/2025 3:45 PM EST Office Visit [facility] MEDICINE [address] [place] [address] Name, MD Boo [address] [place] [address] 12/12/2025 10:30 AM EST Telemedicine [facility] MEDICINE [address] [place] [address] Ame Love RN 12/16/2025 10:15 AM EST Office Visit [facility] ADULT DENTAL [address] [place] [address] Dangelo Pino 01/14/2026 10:30 AM EDT Office Visit [facility] OPTOMETRY [address] [place] [address] Katlyn Vasquez, OD 230 [place] [address] documented as of this encounter Goals Goal [...] documented as of this encounter Care Teams Kiln Puller Relationship Specialty Start Date End Date Name, MD Boo 230 [place] [address] PCP - General Family Medicine 04/26/19 Ira Orozco, LesleyD 230 [place] [address] Pharmacist Internal Medicine 02/03/25 Janessa Fraga 11/23/24 documented as of this encounter
--- OUTSIDE RECORDS SUMMARY | 2025-09-04 18:30 | XMS_ITS | Encounter Summary ---
Author Organization [employer] Address 75 [facility] 7t [place] [address] Care Team Providers Care Manager Engagement Name Role Phone Name, Boo FARLEY Primary Care Provider [phone] Ira Orozco PharmD Unavailable [phone] Reason for Visit * Reason Comments Med Refill Encounter Details Date Type Department Care Team ([facility] Contact Info) Description 01/19/2024 Refill [facility] MEDICINE 230 [place], [place] [phone] Name, MD Boo 230 [place] [address] Lumbar radiculopathy; History of total bilateral knee [...] 3:45 PM EST Office Visit [facility] MEDICINE [address] [place] [address] Name, MD Boo [address] [place] [address] 12/12/2025 10:30 AM EST Telemedicine [facility] MEDICINE [address] [place] [address] Ame Love RN 12/16/2025 10:15 AM EST Office Visit [facility] CHC ADULT DENTAL [address] [place] [address] Dangelo Pino 01/14/2026 10:30 AM EDT Office Visit [facility] OPTOMETRY [address] [place] [address] Katlyn Vasquez, LESLEY 230 [place] [address] documented as of this encounter Goals Goal [...] as of this encounter Care Teams Manager Engagement Relationship Specialty Start Date End Date Name, MD Boo 230 [place] [address] PCP - General Family Medicine 04/26/19 Ira Orozco, LesleyD 230 [place] [address] Pharmacist Internal Medicine 02/03/25 Janessa Fraga 11/23/24 documented as of this encounter
--- OUTSIDE RECORDS SUMMARY | 2025-09-04 18:30 | XMS_ITS | Encounter Summary ---
Author Organization [employer] Address [address] [facility] [address] 7t [place] [address] Care Team Providers Care Production Consultant Name Role Phone Name, Boo FARLEY Primary Care Provider [phone] Ira Orozco PharmD Unavailable [phone] Reason for Visit * Reason Onset Date Comments Med Refill 01/14/2025 Encounter Details Date Type Department Care Team ([facility] Contact Info) Description 01/14/2025 Telephone [facility] MEDICINE 230 [place], [place] [phone] Name, MD Boo 230 [place] [address] Med Refill Social History Tobacco Use Types [...] Miscellaneous Notes * Telephone Encounter - Charity Haryd LPN - 01/14/2025 11:19 AM EDT Medication was sent to [facility] today 01/14/25. * Telephone Encounter - Christen Hurtado - 01/14/2025 11:12 AM EDT TC from pt requesting medication refill. Medications needing refill : pregabalin (Lyrica) 150 MG capsule ibuprofen (IBU) 800 MG tablet To be sent to: [facility] documented in this encounter Plan of Treatment Upcoming Encounters Date Type Department Care Team (Late st Contact Info) Description 09/09/2025 3:45 PM EST Office Visit [facility] MEDICINE [address] [place] [address] Name, MD Boo 230 [place] [address] 12/12/2025 10:30 AM EST Telemedicine [facility] MEDICINE 230 [place] [address] Ame Love, RN 12/16/2025 10:15 AM EST Office Visit [facility] CHC ADULT DENTAL [address] [place] [address] Dangelo Pino 01/14/2026 10:30 AM EDT Office Visit [facility] OPTOMETRY [address] [place] [address] Katlyn Vasquez, OD 230 [place] [address] documented as of this encounter Goals Goal [...] documented as of this encounter Care Teams Production Consultant Relationship Specialty Start Date End Date Name, [place] [address] PCP - General Family Medicine 04/26/19 Ira Orozco PharmD [address] [place] [address] Pharmacist Internal Medicine 02/03/25 Janessa Fraga 11/23/24 documented as of this encounter
--- OUTSIDE RECORDS SUMMARY | 2025-09-04 18:31 | XMS_ITS | Encounter Summary ---
Author Organization [employer] Address 75 [facility] 7t [place] [address] Care Team Providers Care Refrigeration Operator Name Role Phone Name, Boo FARLEY Primary Care Provider [phone] Ira Orozco PharmD Unavailable [phone] Reason for Visit * Reason Comments Med Refill Encounter Details Date Type Department Care Team ([facility] Contact Info) Description 05/17/2023 Refill [facility] MEDICINE 230 [place], [place] [phone] Name, MD Boo 230 [place] [address] Chronic pain syndrome Social History Tobacco Use [...] Description 09/09/2025 3:45 PM EST Office Visit [facility] MEDICINE 230 [place] [address] Name, MD Boo 230 [place] [address] 12/12/2025 10:30 AM EST Telemedicine [facility] MEDICINE 230 [place] [address] Ame Love, RN 12/16/2025 10:15 AM EST Office Visit [facility] CHC ADULT DENTAL [address] [place] [address] Dangelo Pino 01/14/2026 10:30 AM EDT Office Visit [facility] OPTOMETRY 267 [place] [address] Katlyn Vasquez, OD 230 [place] [address] documented as of this encounter Visit Diagnoses Diagnosis Chronic pain syndrome documented in this encounter Additional Health Concerns Assessment Noted Time PHQ-9 Depression Total Score: 6 10/25/20 22 4:10 PM EST documented as of this encounter Care Teams Refrigeration Operator Relationship Specialty Start Date End Date Name, [place] [address] PCP - General Family Medicine 04/26/19 Ira Orozco PharmD [address] [place] [address] Pharmacist Internal Medicine 02/03/25 Janessa Fraga 11/23/24 documented as of this encounter
--- OUTSIDE RECORDS SUMMARY | 2025-09-04 18:31 | XMS_ITS | Encounter Summary ---
Author Organization [employer] Address [address] [facility] [address] 7t [place] [address] Care Team Providers Care Ratoprinter Name Role Phone Name, Boo FARLEY Primary Care Provider [phone] Ira Orozco PharmD Unavailable [phone] Reason for Visit * Reason Onset Date Comments Nurse Triage 04/10/2024 Encounter Details Date Type Department Care Team ([facility] Contact Info) Description 04/10/[address] [facility] MEDICINE 230 [place], [place] [phone] Name, MD Boo 230 [place] [address] Nurse Triage Social History Tobacco Use Types [...] Description 09/09/2025 3:45 PM EST Office [address] [facility] MEDICINE 230 [place] [address] Name, MD Boo 230 [place] [address] 12/12/2025 10:[address] [facility] MEDICINE 230 [place] [address] Ame Love, GEM 12/16/2025 10:15 AM EST Office Visit [facility] CHC ADULT DENTAL [address] [place] [address] Dangelo Pino 01/14/2026 10:30 AM EDT Office Visit [facility] OPTOMETRY [address] [place] [address] Katlyn Vasquez, OD 230 [place] [address] documented as of this encounter Goals Goal [...] documented as of this encounter Care Teams Ratoprinter Relationship Specialty Start Date End Date Name, MD Boo 230 [place] [address] PCP - General Family Medicine 04/26/19 Ira Orozco PharmD 230 [place] [address] Pharmacist Internal Medicine 02/03/25 Janessa Fraga 11/23/24 documented as of this encounter
--- OUTSIDE RECORDS SUMMARY | 2025-09-04 18:31 | XMS_ITS | Encounter Summary ---
Author Organization [employer] Address 75 [facility] 7t [place] [address] Care Team Providers Care Machine Hoop Maker Name Role Phone Name, Boo FARLEY Primary Care Provider [phone] Ira Orozco PharmD Unavailable Encounter Details Date Type Department Care Team (Late Contact Info) Description 09/19/2022 [facility] [employer] [address] [place] [address] NameBoo MD [address] [place] [address] Social History Tobacco Use Types Packs/Day Years [...] Department Care Team (Late Contact Info) Description 09/09/2025 3:45 PM EST Office Visit [facility] MEDICINE [address] [place] [address] [phone] NameBoo MD [address] [place] [address] [phone] 12/12/2025 10:30 AM EST Telemedicine [facility] MEDICINE [address] [place] [address] [phone] Ame Love RN 12/16/2025 10:15 AM EST Office Visit [facility] CHC ADULT DENTAL 505 [place] [address] Dangelo Pino 01/14/2026 10:30 AM EDT Office Visit [facility] OPTOMETRY [address] [place], [place] [phone] Katlyn Vasquez, OD 230 [place] [address] documented as of this encounter Visit Diagnoses Not on filedocumented in this encounter Care Teams Machine Hoop Maker Relationship Specialty Start Date End Date Name, MD Boo 230 [place], [place] [phone] PCP - General Family Medicine 04/26/19 Ira Orozco PharmD [address] [place] [address] Pharmacist Internal Medicine 02/03/25 Janessa Fraga 11/23/24 documented as of this encounter
--- OUTSIDE RECORDS SUMMARY | 2025-09-04 18:31 | XMS_ITS | Encounter Summary ---
Author Organization [employer] Address 75 [facility] 7t [place] [address] Care Team Providers Care Rfid Manager Name Role Phone Name, Boo FARLEY Primary Care Provider [phone] Ira Orozco PharmD Unavailable [phone] Encounter Details Date Type Department Care Team (Latest Contact Info) Description 01/01/2020 Abstract [facility] CONVERSIONS Dental, Provider, DDS Social History [...] Description 09/09/2025 3:45 PM EST Office Visit [facility] MEDICINE 230 [place] [address] Name, MD Boo 230 [place] [address] 12/12/2025 10:30 AM EST Telemedicine [facility] MEDICINE 230 [place] [address] Ame Love, GEM 12/16/2025 10:15 AM EST Office Visit [facility] CHC ADULT DENTAL [address] [place] [address] Dangelo Pino 01/14/2026 10:30 AM EDT Office Visit [facility] OPTOMETRY [address] [place] [address] Katlyn Vasquez, OD 230 [place] [address] documented as of this encounter Visit Diagnoses Not on filedocumented in this encounter Care Teams Rfid Manager Relationship Specialty Start Date End Date Name, MD Boo 230 [place] [address] PCP - General Family Medicine 04/26/19 Ira Orozco, LesleyD 230 [place] [address] Pharmacist Internal Medicine 02/03/25 Janessa Fraga 11/23/24 documented as of this encounter
--- OUTSIDE RECORDS SUMMARY | 2025-09-04 18:31 | XMS_ITS | Encounter Summary ---
Author Organization [employer] Address 75 [facility] 7t [place] [address] Care Team Providers Care Cnc Mechanic Name Role Phone Name, Boo FARLEY Primary Care Provider [phone] Ira Orozco PharmD Unavailable [phone] Reason for Visit * Reason Onset Date Comments FYI 11/19/2024 Encounter Details Date Type Department Care Team ([facility] Contact Info) Description 11/19/2024 Telephone [facility] MEDICINE 230 [place], [place] [phone] Name, MD Boo 230 [place] [address] FY Social History Tobacco Use Types Packs/Day Years [...] 11/19/2024 2:49 PM EST Tc from [facility] , notifying patient will be getting residential services starting today 11/19/2024 . If any questions please contact Christine [phone] documented in this encounter Plan of Treatment Upcoming Encounters Date Type Department Care Team (Late st Contact Info) Description 09/09/2025 3:45 PM EST Office Visit [facility] MEDICINE [address] [place] [address] Name, MD Boo 230 [place] [address] 12/12/2025 10:30 AM EST Telemedicine [facility] MEDICINE 230 [place] [address] Ame Love, RN 12/16/2025 10:15 AM EST Office Visit [facility] CHC ADULT DENTAL [address] [place] [address] Dangelo Pino 01/14/2026 10:30 AM EDT Office Visit [facility] OPTOMETRY [address] [place] [address] Katlyn Vasquez, OD 230 [place] [address] documented as of this encounter Goals Goal [...] documented as of this encounter Care Teams Cnc Mechanic Relationship Specialty Start Date End Date Name, MD Boo 230 [place] [address] PCP - General Family Medicine 04/26/19 Ira Orozco PharmD 230 [place] [address] Pharmacist Internal Medicine 02/03/25 Janessa Fraga 11/23/24 documented as of this encounter
--- OUTSIDE RECORDS SUMMARY | 2025-09-04 18:31 | XMS_ITS | Encounter Summary ---
Author Organization [employer] Address [address] [facility] [address] 7[address] [place] [address] Care Team Providers Care Product Craftsman Name Role Phone Name, Boo FARLEY Primary Care Provider [phone] Ira Orozco PharmD Unavailable [phone] Reason for Visit * Reason Onset Date Comments Med Refill 04/09/2024 Encounter Details Date Type Department Care Team ([facility] Contact Info) Description 04/09/2024 Telephone [facility] MEDICINE [address] [place], [place] [phone] Name, MD Boo 230 [place] [address] Med Refill Social History Tobacco Use Types [...] powder And lidocaine (Lidoderm) 5 % patch radio script writer did confirm with pharmacy and was discontinued on 03/20 To be sent to: [facility] [place] - [address] documented in this encounter Plan of Treatment Upcoming Encounters Date Type Department Care Team (Late st Contact Info) Description 09/09/2025 3:45 PM EST Office Visit [facility] MEDICINE [address] [place] [address] Name, MD Boo [address] [place] [address] 12/12/2025 10:30 AM EST Telemedicine [facility] MED[facility]INE [address] [place] [address] Ame Love, GEM 12/16/2025 10:15 AM EST Office Visit [facility] CHC ADULT DENTAL [address] [place] [address] Dangelo Pino 01/14/2026 10:30 AM EDT Office Visit [facility] OPTOMETRY [address] [place] [address] Katlyn Vasquez, OD 230 [place] [address] documented as of this encounter Goals Goal [...] documented as of this encounter Care Teams Product Craftsman Relationship Specialty Start Date End Date Name, MD Boo 230 [place] [address] PCP - General Family Medicine 04/26/19 Ira Orozco PharmD 230 [place] [address] Pharmacist Internal Medicine 02/03/25 Janessa Fraga 11/23/24 documented as of this encounter
--- OUTSIDE RECORDS SUMMARY | 2025-09-04 18:31 | XMS_ITS | Encounter Summary ---
Author Organization [employer] Address [address] [facility] 7t [place] [address] Care Team Providers Care Improvement Advisor Name Role Phone Name, Boo FARLEY Primary Care Provider [phone] Ira Orozco PharmD Unavailable [phone] Encounter Details Date Type Department Care Team (Latest Contact Info) Description 03/01/2021 Abstract [facility] CONVERSIONS Dental, Provider, DDS Social [...] Description 09/09/2025 3:45 PM EST Office Visit [facility] MEDICINE 230 [place] [address] Name, MD Boo [address] [place] [address] 12/12/2025 10:30 AM EST Telemedicine [facility] MEDICINE 230 [place] [address] Ame Love, GEM 12/16/2025 10:15 AM EST Office Visit [facility] CHC ADULT DENTAL [address] [place] [address] Dangelo Pino 01/14/2026 10:30 AM EDT Office Visit [facility] OPTOMETRY [address] [place] [address] Katlyn Vasquez, OD 230 [place] [address] documented as of this encounter Visit Diagnoses Not on filedocumented in this encounter Care Teams Improvement Advisor Relationship Specialty Start Date End Date Name, MD Boo 230 [place] [address] PCP - General Family Medicine 04/26/19 Ira Orozco, Neilda 230 [place] [address] Pharmacist Internal Medicine 02/03/25 Janessa Fraga 11/23/24 documented as of this encounter
--- OUTSIDE RECORDS SUMMARY | 2025-09-04 18:31 | XMS_ITS | Encounter Summary ---
Author Organization [employer] Address [address] [facility] 7t [place] [address] Care Team Providers Care Internal Recruiter Name Role Phone Name, Boo FARLEY Primary Care Provider [phone] Ira Orozco PharmD Unavailable [phone] Encounter Details Date Type Department Care Team ([facility] Contact Info) Description 10/21/2022 Orders Only [address] [address] Lizzie Coburn RN Social History Tobacco Use [...] Description 09/09/2025 3:45 PM EST Office Visit [address] [address] Name, MD Boo [address] [place] [address] 12/12/2025 10:30 AM EST Telemedicine [address] [address] Ame Love, GEM 12/16/2025 10:15 AM EST Office Visit [facility] CHC ADULT DENTAL [address] [place] [address] MatyMario chauhanard 01/14/2026 10:30 AM EDT Office Visit [facility] OPTOMETRY [address] [place] [address] Katlyn Vasquez, OD [address] [place] [address] documented as of this encounter Procedures Procedure [...] (D2 AND D3) (02/01/2023 10:41 AM EDT) Vitamin D, 25-OH, D2 <4 ng/mL [facility] Comment:This test was develo ped and its analytical performancecharacteristics have been determined by [employer], [place]. It hasnot been cleared or approved by the U.S. Food and DrugAdministration. This assay has been validated pursuantto the CLIA regulations and is used for clinicalpurposes.THIS TEST WAS PERFORMED AT:[employer] [id number] [place] [id number] DE LEON MD,PHD Vitamin D, 25-OH, D3 29 ng/mL [facility] Comment:This test was develo ped and its analytical performancecharacteristics have been determined by [employer] [place], [place]. It hasnot been cleared or approved by the U.S. Food and DrugAdministration. This assay has been validated pursuantto the CLIA regulations and is used for clinicalpurposes. Vitamin D, 25-OH, Total 29(A) 30 - 100 ng/mL [facility] Comment: Vitamin D, 25-Hydroxy reports concentrations of twocommon forms, 25-OHD2 and 25- OHD3. 25-OHD3 indicatesboth endogenous production and supplementation.25-OHD2 is an indicator of exogenous sources such asdiet or supplementation. Therapy is based onmeasurement of Total 25-OHD, with [...] beforethere is any concern. Leo MF, Channing LINARES,Selam ALMARAZ, et al. Evaluation, treatment andprevention of vitamin D deficiency: an EndocrineSociety clinical practice guideline. J Clin EndocrinolMetab. 2011;96(7):1911-30.For additional information, please refer tohttp://education.FolderBoy/faq/LSR766(This link is being provided for informational/educational purposes only.) 02/01/2023 10:4 1 AM EDT 02/01/2023 10:41 AM EDT us [facility] External Provider LAB BLO OD ORDERABLES Final Result [facility] [address] [place] [phone] * TSH W/Reflex to FT4 (02/01/2023 10:41 AM EDT) TSH reflex Free T4 0.49 0.32 - 4.0 uIU/mL [facility] 02/01/2023 10:4 1 AM EDT 02/01/2023 10:41 AM EDT [facility] External Provider LAB BLO OD ORDERABLES Final Result Performing Organization Address City/[facility]/ZIP Co de Phone Number [facility] [address] [place] [address] [phone] * Vitamin B12/Folate, Serum Panel (02/01/2023 10:41 AM EDT) Vitamin B12 697 200 - 900 pg/mL [facility] Comment:NORMAL 200-900 PG/ML INDETERMINATE 160-199 PG/ML DEFICIENT < 160 PG/ML Folate 16.9 > or = 4.0 ng/mL [facility] Comment:Reference Values:> o r = 4.0 ng/mL< 4.0 ng/mL suggests folate deficiency Methotrexate, aminopterin and folinic acid(leucovorin) are chemotherapeutic agents whose molecularstructures are similar to folate; therefore, the Architectfolate assay cannot be used for patients using these drugs. 02/01/2023 10:4 1 AM EDT 02/01/2023 10:41 AM EDT [facility] External Provider LAB BLO OD ORDERABLES Final Result Performing Organization Address [facility] Co de Phone Number [facility] [address] [place] [address] [phone] * Lipase (02/01/2023 10:41 AM EDT) Lipase 21 8 - 78 U/L [facility] 02/01/2023 10:4 1 AM EDT 02/01/2023 10:41 AM EDT [facility] External Provider LAB BLO OD ORDERABLES Final Result Performing Organization Address [facility]/ZIP Co de Phone Number [facility] [address] [place] [address] [phone] * (ABNORMAL) Comprehensive Metabolic Panel (02/01/2023 10:41 AM EDT) Sodium 143 135 - 145 mmol/L [facility] Potassium 4.2 3.3 - 5.1 mmol/L [facility] Chloride 108 96 - 108 mmol/L [facility] Carbon Dioxide 25 22 - 29 mmol/L [facility] Anion Gap 14 12 - 20 [facility] Urea Nitrogen (BUN) 19(H) 9 - 16 mg/dL [facility] Creatinine, Serum 0.73 0.5 - 1.4 mg/dL [facility] Estimated Glomerular Filt Rate >60 [facility] Comment:NOTE: For -Am erican individuals, multiply the result by 1.210.Chronic Kidney Disease: Estimated GFR < 60 mL/min/1.33d7Wbrzel Kidney Disease: Estimated GFR < 15 mL/min/1.73m2 Glucose 113 60 - 115 mg/dL [facility] Calcium 9.6 8.4 - 10.2 mg/dL [facility] Bilirubin, Total 0.5 0.0 - 1.0 mg/dL [facility] Aspartate Amino Transferase 29 5 - 31 U/L [facility] Alanine Aminotransferase 54(H) 0 - 31 U/L [facility] Total Protein 7.1 6.5 - 8.0 g/dL [facility] Albumin Level 4.6 3.5 - 5.0 g/dL [facility] Alkaline Phosphatase 73 39 - 117 U/L [facility] 02/01/2023 10:4 1 AM EDT 02/01/2023 10:41 AM EDT us [facility] External Provider LAB BLO OD ORDERABLES Final Result [facility] [address] [place] [address] [phone] documented in this encounter Visit Diagnoses Not on filedocumented in this encounter Care Teams Internal Recruiter Relationship Specialty Start Date End Date Name, MD Boo [address] [place] [address] PCP - General Family Medicine 04/26/19 Ira Orozco PharmD [address] [place] [address] Pharmacist Internal Medicine 02/03/25 Janessa Fraga 11/23/24 documented as of this encounter
--- OUTSIDE RECORDS SUMMARY | 2025-09-04 18:31 | XMS_ITS | Encounter Summary ---
Author Organization [employer] Address [address] [facility] 7t [place] [address] Care Team Providers Care Software Engineer Advisor Name Role Phone Name, Boo FARLEY Primary Care Provider [phone] Ira Orozco PharmD Unavailable [phone] Reason for Visit * Reason Comments Med Refill Encounter Details Date Type Department Care Team ([facility] Contact Info) Description 04/17/2024 Refill [facility] MEDICINE [address] [place], [place] [phone] Name, MD Boo 230 [place], [place] [phone] Chronic pain syndrome Social History Tobacco Use [...] Description 09/09/2025 3:45 PM EST Office Visit [facility] MEDICINE [address] [place] [address] Boo Hastings MD [address] [place] [address] 12/12/2025 10:30 AM EST Telemedicine [facility] MEDICINE [address] [place] [address] Ame Love, GEM 12/16/2025 10:15 AM EST Office Visit [facility] CHC ADULT DENTAL [address] [place] [address] Dangelo Pino 01/14/2026 10:30 AM EDT Office Visit [facility] OPTOMETRY [address] [place] [address] Katlyn Vasquez, OD 230 [place] [address] documented as of this encounter Goals Goal [...] documented as of this encounter Care Teams Software Engineer Advisor Relationship Specialty Start Date End Date NameBoo MD [address] [place] [address] PCP - General Family Medicine 04/26/19 Ira Orozco, LesleyD [address] [place] [address] [place] [phone] Pharmacist Internal Medicine 02/03/25 Janessa Fraga 11/23/24 documented as of this encounter
--- OUTSIDE RECORDS SUMMARY | 2025-09-04 18:31 | XMS_ITS | Encounter Summary ---
Author Organization [employer] Address [address] [facility] 7t [place] [address] Care Team Providers Care Auto Adjudication Specialist Name Role Phone Name, Boo FARLEY Primary Care Provider [phone] Ira Orozco PharmD Unavailable [phone] Reason for Visit * Reason Comments Med Refill Encounter Details Date Type Department Care Team ([facility] Contact Info) Description 06/07/2023 Refill [facility] WALK-IN CENTER [address] [place] [address] [phone] Nazia Curiel FNP Fibromyalgia; Acute pain of right shoulder Social [...] Upcoming Encounters Date Type Department Care Team ([facility] Contact Info) Description 09/09/2025 3:45 PM EST Office Visit [facility] MEDICINE 230 [place], [place] [phone] Name, MD Boo 230 [place] [address] 12/12/2025 10:30 AM EST Telemedicine [facility] MEDICINE 230 [place] [address] Ame Love, RN 12/16/2025 10:15 AM EST Office Visit [facility] CHC ADULT DENTAL [address] [place] [address] Dangelo Pino 01/14/2026 10:30 AM EDT Office Visit [facility] OPTOMETRY [address] [place] [address] Katlyn Vasquez, OD 230 [place] [address] documented as of this encounter Visit Diagnoses Diagnosis Fibromyalgia Unspecified myalgia and myositis Acute pain of right shoulder documented in this encounter Additional Health Concerns Assessment Noted Time PHQ-9 Depression Total Score: 6 10/25/20 22 4:10 PM EST documented as of this encounter Care Teams Auto Adjudication Specialist Relationship Specialty Start Date End Date Name, MD Boo 230 [place] [address] PCP - General Family Medicine 04/26/19 Ira Orozco PharmD 230 [place] [address] Pharmacist Internal Medicine 02/03/25 Janessa Fraga 11/23/24 documented as of this encounter
--- OUTSIDE RECORDS SUMMARY | 2025-09-04 18:31 | XMS_ITS | Encounter Summary ---
Author Organization [employer] Address 75 [facility] 7t [place] [address] Care Team Providers Care Foreman Or Supervisor And Operator Name Role Phone Name, Boo FARLEY Primary Care Provider [phone] Ira Orozco PharmD Unavailable [phone] Encounter Details Date Type Department Care Team (Latest Contact Info) Description 06/08/2022 Abstract [facility] CONVERSIONS Dental, Provider, DDS Social History [...] Description 09/09/2025 3:45 PM EST Office Visit [facility] MEDICINE [address] [place] [address] Name, MD Boo [address] [place] [address] 12/12/2025 10:30 AM EST Telemedicine [facility] MEDICINE [address] [place] [address] Ame Love, GEM 12/16/2025 10:15 AM EST Office Visit [facility] CHC ADULT DENTAL [address] [place] [address] Dangelo Pino 01/14/2026 10:30 AM EDT Office Visit [facility] OPTOMETRY [address] [place] [address] Katlyn Vasquez, OD 230 [place] [address] documented as of this encounter Visit Diagnoses Not on filedocumented in this encounter Care Teams Foreman Or Supervisor And Operator Relationship Specialty Start Date End Date Name, MD Boo 230 [place] [address] PCP - General Family Medicine 04/26/19 Ira Orozco, Nelida 230 [place] [address] Pharmacist Internal Medicine 02/03/25 Janessa Fraga 11/23/24 documented as of this encounter
--- OUTSIDE RECORDS SUMMARY | 2025-09-04 18:31 | XMS_ITS | Encounter Summary ---
Author Organization [employer] Address [address] [facility] [address] [place] [address] Care Team Providers Care Quarry Supervisor Open Pit Name Role Phone Name, Boo FARLEY Primary Care Provider [phone] Ira Orozco PharmD Unavailable [phone] Encounter Details Date Type Department Care Team ([facility] Contact Info) Description 11/21/2024 Telephone [facility] MEDICINE 230 [place], [place] [phone] Name, MD Boo 230 [place] [address] Social History Tobacco Use Types Packs/Day Years [...] 09/09/2025 3:45 PM EST Office Visit [facility] MEDICINE [address] [place] [address] Name, MD Boo [address] [place] [address] 12/12/2025 10:30 AM EST Telemedicine [facility] MEDICINE [address] [place] [address] Ame Love, RN 12/16/2025 10:15 AM EST Office Visit [facility] CHC ADULT DENTAL [address] [place] [address] Dangelo Pino 01/14/2026 10:30 AM EDT Office Visit [facility] OPTOMETRY [address] [place] [address] Katlyn Vasquez, LESLEY 230 [place] [address] documented as of this encounter Goals Goal [...] documented as of this encounter Care Teams Quarry Supervisor Open Pit Relationship Specialty Start Date End Date Name, MD Boo 230 [place] [address] PCP - General Family Medicine 04/26/19 Ira Orozco PharmD 230 [place] [address] Pharmacist Internal Medicine 02/03/25 Janessa Fraga 11/23/24 documented as of this encounter
--- OUTSIDE RECORDS SUMMARY | 2025-09-04 18:31 | XMS_ITS | Encounter Summary ---
Author Organization [employer] Address 75 [facility] 7t [place] [address] Care Team Providers Care Care Team Assistant Name Role Phone Name, Boo FARLEY Primary Care Provider [phone] Ira Orozco PharmD Unavailable [phone] Reason for Visit * Reason Comments Med Refill Encounter Details Date Type Department Care Team ([facility] Contact Info) Description 06/19/2023 Refill [facility] MEDICINE [address] [place] [address] [phone] Boo Hastings MD [address] [place] [address] [phone] Moderate persistent asthma without complication; Chronic pain [...] Upcoming Encounters Date Type Department Care Team ([facility] Contact Info) Description 09/09/2025 3:45 PM EST Office Visit [facility] MEDICINE [address] [place] [address] [phone] Boo Hastings MD [address] [place] [address] 12/12/2025 10:30 AM EST Telemedicine [facility] MEDICINE 230 [place] [address] Ame Love, RN 12/16/2025 10:15 AM EST Office Visit [facility] CHC ADULT DENTAL [address] [place] [address] Dangelo Pino 01/14/2026 10:30 AM EDT Office Visit [facility] OPTOMETRY [address] [place] [address] PedroKatlyn santos, OD 230 [place] [address] documented as of this encounter Visit Diagnoses Diagnosis Moderate persistent asthma without complication Chronic pain syndrome documented in this encounter Additional Health Concerns Assessment Noted Time PHQ-9 Depression Total Score: 6 10/25/20 22 4:10 PM EST documented as of this encounter Care Teams Care Team Assistant Relationship Specialty Start Date End Date Name, MD Boo [address] [place] [address] PCP - General Family Medicine 04/26/19 Ira Orozco PharmD [address] [place] [address] Pharmacist Internal Medicine 02/03/25 Janessa Fraga 11/23/24 documented as of this encounter
--- OUTSIDE RECORDS SUMMARY | 2025-09-04 18:32 | XMS_ITS | Encounter Summary ---
Author Organization [employer] Address 75 [facility] 7t [place] [address] Care Team Providers Care Paper Tube Cutter Name Role Phone Name, Boo FARLEY Primary Care Provider [phone] Ira Orozco PharmD Unavailable [phone] Reason for Visit * Reason Onset Date Comments Medication Question 03/17/2025 FYI 03/17/2025 Encounter Details Date Type Department Care Team ([facility] Contact Info) Description 03/17/2025 Telephone [facility] MEDICINE [address] [place], [place] [phone] Name, MD Boo [address] [place] [address] Medication Question; Social History Tobacco Use Types Packs/Day Years [...] encounter Miscellaneous Notes * Telephone Encounter - Pretty Brito RN - 03/17/2025 1:32 PM EDT Telephone call returned to patient in regards to below message. Patient stated she will NOT call the pharmacy for change and would like us to send it as last time 'there was a mess' and she wants to avoid that. Patient would like Patient verbalized understanding and denied having any further questions or concerns at this time. Patient to follow up as needed. * Telephone Encounter - Isa Melton - 03/17/2025 11:16 AM EDT Tc from pt stating she's paying $33 dollars monthly for lidocaine (Lidoderm) 5 % patch. documented in this encounter Plan of Treatment Upcoming Encounters Date Type Department Care Team (Late st Contact Info) Description 09/09/2025 3:45 PM EST Office Visit [facility] MEDICINE [address] [place] [address] Name, MD Boo [address] [place] [address] 12/12/2025 10:30 AM EST Telemedicine [facility] MEDICINE [address] [place] [address] Ame Love, RN 12/16/2025 10:15 AM EST Office Visit [facility] CHC ADULT DENTAL [address] [place] [address] Dangelo Pino 01/14/2026 10:30 AM EDT Office Visit [facility] OPTOMETRY [address] [place] [address] Katlyn Vasquez, OD 230 [place] [address] documented as of this encounter Goals Goal [...] documented as of this encounter Care Teams Paper Tube Cutter Relationship Specialty Start Date End Date NameBoo MD [address] [place] [address] PCP - General Family Medicine 04/26/19 Ira Orozco PharmD [address] [place] [address] Pharmacist Internal Medicine 02/03/25 Janessa Fraga 11/23/24 documented as of this encounter
--- OUTSIDE RECORDS SUMMARY | 2025-09-04 18:32 | XMS_ITS | Data Portability ---
Author Organization NEREIDA - Yasir Eisenberg [facility] Surgeons [facility], [facility] Address [address] [place] [address] Care Team Providers Care Knuckler Name Role Phone NAME, HERON Primary Care Provider [phone] Assessment Encounter Date Assessment Date Assessment LastModified by Organization Details LastModified Time 07/14/2025 07/14/2025 1 . Lumbar spondylolisthesis at L4-L5 with spinal stenosis and radiculopathy 2. Vitamin D deficiency 3. Plan: - Proceed with L4-L5 anterior lumbar interbody fusion with posterior interspinal fusion (360 fusion) with L3-L4 laminectomy scheduled for 07/24/2025 - Surgery will involve anterior approach to remove disc and place interbody cage, followed by posterior approach for decompression and placement of screws and rods - Anticipated hospital stay: 2-3 days - Bone graft will be obtained from patient's own bone and supplemented with cadaver bone - Patient provided with lumbar brace today - Will arrange for walker at discharge - Will arrange for home nursing visits post-discharge - Will submit documentation to insurance on day of surgery for 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 After reviewing the patient's history, physical exam and studies I have decided the patients chronic illness with progression warrants elective major surgery. The patient has completed greater than 6 weeks of physician directed nonoperative management of this condition to include medications and physical therapy without improvement. I have further discussed the natural progression of this disease as well as the operative and non- operative modalities that are appropriate for treating this disease. The known risks of surgery include infection, bleeding, damage to nerves and/or arteries, continued pain, loss of motion, spinal fluid leak, and the possible need for further surgeries. Risks of anesthesia such as nausea, vomiting, pneumonia, stroke, heart attack and . Written consent was obtained. No medical contraindications noted. ICD-10: M43.16 - Spondylolisthesis, lumbar region ICD-10: M48.06 - Spinal stenosis, lumbar region ICD-10: M54.16 - Radiculopathy, lumbar region ICD-10: E55.9 - Vitamin D deficiency, unspecified [email or web address] Not available 07/14/2025 17:02:29 08/07/2025 08/07/2025 1 . Status post L4-L5 anterior lumbar interbody fusion with posterior instrumented spinal fusion on 07/24/2025 for spondylolisthesis and radiculopathy Patient is 2 weeks post-operative and progressing appropriately Surgical incisions are clean, dry, and intact without signs of infection X-rays demonstrate appropriate hardware placement with no evidence of complications Patient to continue using walker for ambulation May remove some Steri-Strips and begin using collagen dressings on both incisions May shower normally but avoid rubbing incisions Continue vitamin D supplementation Continue current pain management regimen with hydromorphone and Tylenol taken together for synergistic effect Transition to oxycodone after completing hydromorphone prescription Goal to wean off narcotic medications and transition to Tylenol only 2. Left greater trochanteric bursitis, acute Likely related to altered gait mechanics following recent spine surgery Conservative management recommended at this time including clamshell exercises and stretching May apply topical analgesics to hip area for pain relief Will consider corticosteroid injection at next follow-up if symptoms persist Avoid injection at this time due to proximity to recent surgery 3. History of knee replacement, left Transient pain reported two days ago No significant findings on examination today Will monitor at next visit 4. Follow-up plan Return in 8 weeks for repeat evaluation Will consider left greater trochanteric bursal injection at that time if symptoms persist Continue current medication regimen with goal to wean off narcotics ICD-10: M43.16 - Spondylolisthesis, lumbar region ICD-10: M54.16 - Radiculopathy, lumbar region ICD-10: M70.62 - Trochanteric bursitis, left ICD-10: Z47.1 - Aftercare following joint replacement surgery ICD-10: Z98.1 - Arthrodesis status Number of Problems Addressed: - 1 acute orthopedic problem (left greater trochanteric bursitis) - 1 post-surgical follow-up (status post L4-L5 anterior lumbar interbody fusion with posterior instrumented spinal fusion) Complexity of Problems: The patient is in the early post-operative period following complex spinal surgery with a new onset of greater trochanteric bursitis that is likely related to altered gait mechanics following surgery. Management requires careful consideration of timing for interventions due to recent surgery. Data Reviewed/Ordered Today: X-rays of Lumbar spine AP/Lateral views Medication management including hydromorphone, oxycodone, and acetaminophen Wound care instructions including use of collagen dressings Exercise prescription for greater trochanteric bursitis Data Personally Reviewed and Interpreted Today: Independent interpretation of lumbar spine X-rays Risk of Complications/Morbi dity: Moderate risk due to post-operative status following complex spinal fusion surgery. Management decisions include wound care, pain management with controlled substances, and treatment planning for greater trochanteric bursitis while considering the recent surgical intervention. Prescription drug management includes narcotics with a plan for appropriate weaning. Not available 08/07/2025 14:44:02 Plan of Treatment Reminders Order Date Submit Date Provider Last Modified By Organization Details Last Modified Time Details Appointments RECHECK 15 2024 10:30A Solomon ESCALERA PA-C Not available Not available Not available Lab None recorded. Referral None recorded. Procedures None recorded. Surgeries None recorded. Imaging XR, lumbar spine, 2 view - 326 lumbar 2v [email or web address] [facility], [address], [address], [place], [address], 08/07/2025 14:46:51 XR, foot, 3 or more view [email or web address] [facility], [address], [address], [place], [address], 05/12/2025 08:38:10 CT, lumbar spine, w/o contrast - CT SCAN LUMBAR SPINE WITHOUT CONTRAST FOR LUMBAR STENOSIS WITH BLE RADIC 2024 025 COUPLAND [facility] [place], [address], [address], [place], [address], 03/31/2025 06:49:48 MRI, lumbar spine, w/o contrast - mri lumbar spine without contrast for spondylo thesis with neurogeni c claudicat ion [address] [facility] ([facility]), [address], [place], [address], 01/24/2025 15:51:10 Medication Orders cholecalc iferol (vitamin D3) 1,250 mcg (50,000 unit) capsule 2024 025 [email or web address] 8 [id number], [address], [place], [id number], 07/14/2025 17:03:55 cholecalc iferol (vitamin D3) 1,250 mcg (50,000 unit) capsule 2024 025 [facility], [address], [place], [phone], 07/14/2025 11:38:06 Patient TargetsNo targets recorded. Patient InstructionsNo instructions recorded. Reason for Referral None Reported. Results Created Date Observation Date Name Description Value Unit Range Abnormal Flag Note LastModifiedBy Organization Detail LastModifiedTime 01/25/20 25 01/22/2025 MRI, lumba r spine , w/o contr ast [facility] Access ion Number : [id number] Patien t Name: Dion peng Juana Spencera l Record Number : [id number] Date of : 1959 Date of Exam: 2024 Referr ing Physic sarabjit: Johan Arreaga [address] [facility], [place] [address] Exam: MR Lumbar Spine (C-) CPT 11957 Room Descri ption: [facility] 1.5 MRI of the lumbar spine withou t contra st. HISTOR Y: Low back pain, worse on left. Bilate ral leg pain and parest hesia. COMPAR YELENA: 04/14/20 23. FINDIN GS: This study assume s 5 nonrib -beari ng lumbar -type verteb ral bodies . The conus medull spring has a normal calibe r and signal intens ities. It termin ates at L1-L2 level. Brantley l locali zer shows a mild levosc oliosi s of the lumbar spine. On the sagitt al images , there is a minima l retrol isthes is of T12 over L1 and L1 over L2. There is also an approx imatel y 8 mm theresa listhe sis of L4 over L5, simila r to the prior study. No verteb ral body fractu re is seen. The bone marrow signal s are within normal limits . Mild margin al osteop hytes are seen diffus ariana. Disc desicc ation, disc space narrow ing and mild endpla te degene rative change s are noted at T12-L1 , L2-L3 and L4-L5 levels . T12-L1 level has a mild disc bulge and a superi mposed right parace ntral exclud ed disc with superi or migrat ion. The right latera l recess is stenot ic with crowdi ng of the right L1 nerve root. Mild right and no left neural forame n narrow ing. L1-L2 level has a mild disc bulge. Minima l centra l canal stenos is withou t nerve root compre ssion. Bilate ral facet joints are mildly degene rative . Bilate ral neural forame n narrow ing. L2-L3 level has a concen tric disc bulge extend ing to subart icular region s bilate rally, more toward the right. Modera te stenos is with crowdi ng of centra l nerve roots. The direct mail coordinator ior aspect of the thecal sac is flatte devendra by extrad ural lipoma tosis. There is modera te right and mild left-s ided degene rative facet arthro jennifer. Severe right and mild left neural forame n narrow ing with right L2 nerve root compre ssion. L3-L4 level has a mild concen tric disc bulge and a superi mposed small broad- based left direct mail coordinator ior latera l disc protru stephanie. This causes left latera l recess stenos is with crowdi ng of the left L4 nerve root. There is extrad ural lipoma tosis in the dorsal aspect of thecal sac. Bilate ral ligame ntum flavum are mildly hypert rophic . There is mild degene rative facet arthro jennifer bilate rally. Mild to modera te bilate ral neurof oramin al narrow ing. L4-L5 level has a a grade 1/2 theresa listhe sis withou t spondy lolysi s. Axial images show a concen tric disc bulge extend ing to neural forame n bilate rally. There is a superi mposed the centra l extrud ed disc with superi or migrat ion. The centra l canal is severe ly stenot ic with compre ssion of all the centra l nerve roots. The nerve roots above this level appear s to be crowde d and undula ting. The ligame ntum flavum are hypert rophic . The facet joints are severe ly degene rative . Modera te to severe bilate ral neural forame n narrow ing. Bilate ral parasp inal muscle s are partia lly atroph ic with fatty replac ement. Partia l sacral izatio n of the left L5 verteb ral body. L5-S1 level has a mild disc bulge, more toward the right where there is a small right subart icular disc protru setphanie, progre ssed since prior study. Modera te right neural forame n narrow ing. Minima l right latera l recess stenos is with the disc abutti ng the right S1 nerve root. No thecal sac encroa chment . The ligame ntum flavum are mildly hypert rophic . The facet joints are mildly degene rative . Mild left neural forame n narrow ing. Bilate ral parasp inal muscle s are partia lly atroph ic with fatty replac ement. IMPRES STEPHANIE: Multip le levels of lumbar spondy losis as descri bed above. Electr onical ly Signed By: Mal gaviria [facility] ([facility]) [address], [place], [address], 01/24/2025 15:52:31 03/31/20 25 03/28/2025 CT, lumba r spine , w/o contr ast No observ ation record ed. [facility] [place] [address], [place], [address], 04/08/2025 08:29:38 03/31/20 25 03/28/2025 CT, lumba r spine , w/o contr ast No observ ation record ed. PEDRO LUIS [facility] [place] [address], [place], [address], 04/08/2025 08:29:35 04/30/20 25 04/30/2025 XR, foot, 3 or more view http:/ [email or web address] ?Encry pted=s hAaTro YD8dLq bEUv6g %2BXZw aYqtaq 0bqfl% 2Fg9IQ a4ajBk vP9nXo QUaueC m3YtLR FvZlgJ JJ8mAn HZtai3 4l4641 AC0Kla HSHWaO kKiQtr MwF INTERFACE [facility] [address], [place], [address], 04/30/2025 13:01:24 04/30/20 25 04/30/2025 XR, foot, 3 or more view http:/ [email or web address] ?Encry pted=s hAaTro YD8dLq bEUv6g %2BXZw aYqtaq 0bqfl% 2Fg9IQ a4ajBk vP9nXo QUaueC m3YtLR FvZlgJ JJ8mAn HZtai3 8t2798 AC0Kla HSHWaO kKiQtr MwF INTERFACE [facility] [address], [place], [address], 04/30/2025 13:01:27 07/25/20 25 07/25/2025 XR, lumba r spine , 2 view No observ ation record ed. [email or web address] [facility] [address], [place], [address], 07/25/2025 14:19:49 08/07/20 25 08/07/2025 XR, lumba r spine , 2 view [email or web address]:/ [email or web address] ?Encry pted=s hAaTro YD8dLq bEUv6g %2BXZw aYqtaq 0bqfl% 2Fg9IQ a4ajBk vP9nXo QUaueC m3YtLR FvZlgJ JJ8mAn HZtai3 8f5223 AC0Klb X%2BMV qeuKiQ trMwF INTERFACE [facility] [address], [place], [address], 08/07/2025 11:23:05 08/07/20 25 08/07/2025 XR, lumba r spine , 2 view http:/ [email or web address] ?Encry pted=s hAaTro YD8dLq bEUv6g %2BXZw aYqtaq 0bqfl% 2Fg9IQ a4ajBk vP9nXo QUaueC m3YtLR FvZlgJ JJ8mAn HZtai3 8n7930 AC0Klb X%2BMV qeuKiQ trMwF INTERFACE [facility] [address], [place], [address], 08/07/2025 11:23:07 Result Notes Documentation Provider Name and Address Organization Details Recorded Time Mri, Lumbar Spine, W/o Contrast : [facility] Accession Number: [id number] Patient Name: Juana Lord Date of : 1960 Date of Exam: 01-22-2025 Referring Physician: Johan Murcia [address] [place], [place] [address] Exam: MR Lumbar Spine (C-) CPT 74112 Room Description: [facility] 1.5 MRI of the lumbar spine without contrast. HISTORY: Low back pain, worse on left. Bilateral leg pain and paresthesia. COMPARISON: 04/14/2023. FINDINGS: This study assumes 5 nonrib-bearing lumbar-type vertebral bodies. The conus medullaris has a normal caliber and signal intensities. It terminates at L1-L2 level. Coronal localizer shows a mild levoscoliosis of the lumbar spine. On the sagittal images, there is a minimal retrolisthesis of T12 over L1 and L1 over L2. There is also an approximately 8 mm anterolisthesis of L4 over L5, similar to the prior study. No vertebral body fracture is seen. The bone marrow signals are within normal limits. Mild marginal osteophytes are seen diffusely. Disc desiccation, disc space narrowing and mild endplate degenerative changes are noted at T12-L1, L2-L3 and L4-L5 levels. T12-L1 level has a mild disc bulge and a superimposed right paracentral excluded disc with superior migration. The right lateral recess is stenotic with crowding of the right L1 nerve root. Mild right and no left neural foramen narrowing. L1-L2 level has a mild disc bulge. Minimal central canal stenosis without nerve root compression. Bilateral facet joints are mildly degenerative. Bilateral neural foramen narrowing. L2-L3 level has a concentric disc bulge extending to subarticular regions bilaterally, more toward the right. Moderate stenosis with crowding of central nerve roots. The posterior aspect of the thecal sac is flattened by extradural lipomatosis. There is moderate right and mild left-sided degenerative facet arthropathy. Severe right and mild left neural foramen narrowing with right L2 nerve root compression. L3-L4 level has a mild concentric disc bulge and a superimposed small broad-based left posterior lateral disc protrusion. This causes left lateral recess stenosis with crowding of the left L4 nerve root. There is extradural lipomatosis in the dorsal aspect of thecal sac. Bilateral ligamentum flavum are mildly hypertrophic. There is mild degenerative facet arthropathy bilaterally. Mild to moderate bilateral neuroforaminal narrowing. L4-L5 level has a a grade 1/2 anterolisthesis without spondylolysis. Axial images show a concentric disc bulge extending to neural foramen bilaterally. There is a superimposed the central extruded disc with superior migration. The central canal is severely stenotic with compression of all the central nerve roots. The nerve roots above this level appears to be crowded and undulating. The ligamentum flavum are hypertrophic. The facet joints are severely degenerative. Moderate to severe bilateral neural foramen narrowing. Bilateral paraspinal muscles are partially atrophic with fatty replacement. Partial sacralization of the left L5 vertebral body. L5-S1 level has a mild disc bulge, more toward the right where there is a small right subarticular disc protrusion, progressed since prior study. Moderate right neural foramen narrowing. Minimal right lateral recess stenosis with the disc abutting the right S1 nerve root. No thecal sac encroachment. The ligamentum flavum are mildly hypertrophic. The facet joints are mildly degenerative. Mild left neural foramen narrowing. Bilateral paraspinal muscles are partially atrophic with fatty replacement. IMPRESSION: Multiple levels of lumbar spondylosis as described above. Electronically Signed By: Mal braden [place] - [facility] 01/24/2025 15:52:31 Xr, Foot, 3 Or More View : [email or web address] ncrypted=dzHxVkfKO5eUhoMWl 6g%0KBLdaCfgrk6huhk%2Fg9IQ v6gxOykY6kMsBAszqWx3QdJWEg WjkWAO6jAcJCidp80p4058ZF0Y laHSHWaOkKiQtrMwF Not Available [facility] 04/30/2025 13:01:25 Xr, Foot, 3 Or More View : [email or web address] ncrypted=qyGtHmkFQ2nHrwONn 6g%3FYLwhXecaj4sxrm%2Fg9IQ e5ceAzaW4cOiYXexkRh2AiRVAw DazJOH7gUrYEgzx24c1197IW9I laHSHWaOkKiQtrMwF Not Available [facility] 04/30/2025 13:01:27 Xr, Lumbar Spine, 2 View : [email or web address] ncrypted=ezYuIyeMZ7uYrlMYv 6g%8XVNjqCnout7spbe%2Fg9IQ v0baKioC3kCvUAhtbBp7YaQKMd IazLUR3iBxAVmrt69i6081IK3W lbX%2BMVqeuKiQtrMwF Not Available [facility] 08/07/2025 11:23:06 Xr, Lumbar Spine, 2 View : [email or web address] ncrypted=eoDpTowBY2eUttMZp 6g%0WCOnlAlcjz6tfbk%2Fg9IQ z1huZxhF3lVzRMhqiRg9UpXIEd XigGWM1iUxPQizi87v4981YG8B lbX%2BMVqeuKiQtrMwF Not Available [facility] 08/07/2025 11:23:08 Problems Name Problem SNOMED Code Status Onset Date Resolution Date Notes Provider Name and Address Organization Details Recorded Time No complaint s 500170369 Active Status: 'I'; Not Available [facility] 4 09:10:57 Achilles tendiniti s 47280263 Active 2013 Status: 'A'; Not Available [facility] 4 11:12:45 Low back pain 499214019 Active 2013 Problem Code: M54.5; Problem Code Type: ICD-10; Status: 'A'; Not Available [facility] 4 11:12:45 Calcaneal spur of right foot 599907053326 100 Active 2014 Problem Code: M77.31; Problem Code Type: ICD-10; Status: 'A'; Not Available [facility] 4 11:12:45 Spinal stenosis in cervical region 80305406 Active 2023 Johan Murcia MD [address], [place], [address] , [facility] 4 10:53:21 Senile osteoporo sis 19301582 Active 2023 Johan Murcia MD [address], [place], [address] , [facility] 4 10:53:24 Lumbar radiculop athy 710535502 Active 2023 Johan Murcia MD [address], [place], [address] , [facility] 4 10:53:25 Osteoporo sis 95401179 Active 2023 Johan Murcia MD [address], [place], [address] , [facility] 4 10:53:37 Lumbar spondylol isthesis 571169267338 102 [facility] 5 13:50:25 Spinal stenosis of lumbar region 61253050 Active 2024 Johan Murcia MD [address], [place], [address] , [facility] 5 17:20:11 Bilateral hallux valgus Active 2024 Pippa Brock PA-C [address], [place], [address] , [facility] 5 12:30:43 Vitamin D deficienc y 88433140 Active 2024 Johan Murcia MD [address], [place], [address] , [facility] 5 17:02:51 Greater trochante stanley pain syndrome 4187441 Active 2024 Johan Murcia MD [address], [place], [address] , [facility] 5 14:45:14 Problem Notes None recorded. Medical Equipment None Reported. Allergies Allergen ID Allergen Name Allergen Category Reaction Reaction Severity Criticality Documentation Date Start Date Code Code System Note Provider Name and Address Organization Details Recorded Time 504751 Lipitor medicatio n Not available Not available Not available 01/08/20242012 48802 5 RxNorm Not Available [facility] 4 15:13:41 510359 Fosamax medicatio n muscle cramps Not available Not available 07/14/2025 52336 5 RxNorm Ciera braden, [facility] 5 10:31:23 096312 aspirin medicatio n Not available Not available Not available 07/14/2025 1191 RxNorm Ciera braden [place] - [facility] 10:31:34 Medications Name Sig Start Date Stop Date Status Note LastModified by Organization Details LastModified Time medbox status USE DIRECTED 07/14 completed Not Available Not Available Not Available multivitami n tablet TAKE 1 TABLET BY MOUTH EVERY MORNING 07/14 completed Not Available Not Available Not Available cyclobenzap rine 10 mg tablet Take 1 tablet 3 times a day by oral route for 7 days. 09/04 completed Not Available Not Available Not Available lidocaine 4 % topical patch APPLY 1 PATCH TOPICALLY TO THE SKIN DAILY. active Not Available Not Available No t Available albuterol sulfate 2.5 mg/3 mL (0.083 %) solution for nebulizatio n USE 1 AMPULE VIA NEBULIZER FOUR TIMES DAILY active Not Available Not Available No t Available azithromyci n 250 mg tablet TAKE 2 TABLETS BY MOUTH ON DAY 1, THEN TAKE 1 TABLET DAILY ON DAYS 2-5 01/20 completed Not Available Not Available Not Available ibuprofen 800 mg tablet TAKE 1 TABLET BY MOUTH EVERY 8 HOURS NEEDED FOR MILD PAIN active Not Available Not Available No t Available theophyllin e ER 400 mg tablet,exte nded release 24 hr TAKE ONE TABLET EVERY NIGHT AT BEDTIME 07/14 completed Not Available Not Available Not Available sumatriptan 100 mg tablet TAKE 1 TABLET BY MOUTH AT ONSET OF MIGRAINE. MAY REPEAT 1 TIME AFTER 2 HOURS NEEDED active Not Available Not Available No t Available senna 8.6 mg tablet TAKE 1 TABLET BY MOUTH EVERY DAY. active Not Available Not Available No t Available FreeStyle Lancets 28 gauge USE TO TEST BLOOD SUGAR DAILY active Not Available Not Available No t Available prednisone 20 mg tablet TAKE TWO TABLETS DAILY ONCE DAILY FOR FIVE DAYS 01/20 completed Not Available Not Available Not Available clonazepam 0.5 mg tablet TAKE ONE TABLET EVERY DAY NEEDED 01/20 completed Not Available Not Available Not Available venlafaxine ER 150 mg capsule,ext ended release 24 hr TAKE 1 CAPSULE BY MOUTH DAILY active Not Available Not Available No t Available amlodipine 5 mg tablet TAKE 1 TABLET BY MOUTH EVERY MORNING active Not Available Not Available No t Available amitriptyli ne 50 mg tablet TAKE ONE TABLET EVERY NIGHT AT BEDTIME 01/20 completed Not Available Not Available Not Available acetaminoph en 500 mg tablet TAKE 1 TABLET BY MOUTH EVERY 8 HOURS NEEDED FOR MILD PAIN active Not Available Not Available No t Available theophyllin e ER 300 mg tablet,exte nded release,12 hr TAKE 1 TABLET BY MOUTH DAILY active Not Available Not Available No t Available lidocaine-p rilocaine 2.5 %-2.5 % topical cream APPLY TOPICALLY TO THE AFFECTED AREA 1 TIME FOR 1 DOSE active Not Available Not Available No t Available oxycodone-a cetaminophe n 5 mg-325 mg tablet TAKE 1 TABLET BY MOUTH EVERY 8 HOURS NEEDED FOR SEVERE PAIN FOR UP TO 28 DAYS active Not Available Not Available No t Available amitriptyli ne 25 mg tablet TAKE 1 TABLET BY MOUTH EVERY NIGHT AT BEDTIME active Not Available Not Available No t Available pseudoephed rine-guaife nesin ER 80-700 mg tablet,exte nded release DO NOT DRIVE WHILE TAKING THIS MEDICATIO NTHIS SCRIPT MUST LAST FOR 7 DAYS 06/27 completed Statu s: 'Disc ontin ued'; Not Available Not Available Not Available lidocaine 5 % topical patch APPLY 1 PATCH TO SKIN. LEAVE ON FOR 12 HOURS, THEN OFF FOR 12 HOURS DIRECTED. 07/14 completed Not Available Not Available Not Available docusate sodium 100 mg capsule TAKE 1 CAPSULE BY MOUTH TWO TIMES A DAY. active Not Available Not Available No t Available omeprazole 20 mg capsule,del ayed release TAKE 1 CAPSULE BY MOUTH EVERY MORNING BEFORE BREAKFAST active Not Available Not Available No t Available montelukast 10 mg tablet TAKE 1 TABLET BY MOUTH EVERY EVENING active Not Available Not Available No t Available hydroxyzine HCl 25 mg tablet TAKE 1 TABLET BY MOUTH TWICE DAILY NEEDED FOR ANXIETY.. active Not Available Not Available No t Available codeine 10 mg-guaifene sin 100 mg/5 mL oral liquid TAKE 15 ml's BY MOUTH EVERY 6 HOURS NEEDED FOR COUGH 01/20 completed Not Available Not Available Not Available bisacodyl 5 mg tablet,ivis yed release TAKE 1 TABLET BY MOUTH EVERY NIGHT AT BEDTIME NEEDED FOR CONSTIPAT ION active Not Available Not Available No t Available zolpidem 5 mg tablet TAKE 1 TABLET BY MOUTH AT BEDTIME NEEDED active Not Available Not Available No t Available polyethylen e glycol 3350 17 gram/dose oral powder STIR 17GM INTO 8 OUNCES OF WATER, OR JUICE, AND DRINK DAILY NEEDED / DIRECTED 07/14 completed Not Available Not Available Not Available estradiol 0.01% (0.1 mg/gram) vaginal cream INSERT ONE GRAM VAGINALLY FOR FOURTEEN DAYS THEN USE ONE GRAM VAGINALLY TWICE A WEEK THEREAFTE R 01/20 completed Not Available Not Available Not Available levofloxaci n 750 mg tablet TAKE ONE TABLET DAILY UNTIL FINISHED 07/14 completed Not Available Not Available Not Available zolpidem 10 mg tablet TAKE 1 TABLET BY MOUTH EVERY NIGHT AT BEDTIME NEEDED. TAKE WITH ZOLPIDEM 5 MG FOR A TOTAL OF ZOLPIDEM 15 MG active Not Available Not Available No t Available hydromorpho ne 4 mg tablet TAKE 1/2 TO 1 TABLET BY MOUTH EVERY 4 HOURS NEEDED FOR SEVERE PAIN active Not Available Not Available No t Available amoxicillin 500 mg-potassiu m clavulanate 125 mg tablet TAKE ONE TABLET TWICE DAILY UNTIL FINISHED 01/20 completed Not Available Not Available Not Available Ventolin HFA 90 mcg/actuati on aerosol inhaler INHALE 2 PUFFS BY MOUTH EVERY 4 TO 6 HOURS NEEDED FOR WHEEZING OR SHORTNESS OF BREATH 07/14 completed Not Available Not Available Not Available oxycodone 5 mg tablet Take 1 tablet twice a day by oral route for 14 days. 09/04 completed Not Available Not Available Not Available azithromyci n 500 mg tablet TAKE ONE TABLET THREE TIMES PER WEEK ON MONDAY, MONDAY AND MONDAY MORNING 07/14 completed Not Available Not Available Not Available ezetimibe 10 mg tablet TAKE 1 TABLET BY MOUTH EVERY MORNING active Not Available Not Available No t Available cyclobenzap rine 5 mg tablet TAKE ONE TABLET THREE TIMES DAILY 01/20 completed Not Available Not Available Not Available Alcohol Prep Pads USE DIRECTED DAILY 07/14 completed Not Available Not Available Not Available topiramate 50 mg tablet TAKE ONE TABLET IN THE MORNING AND EVENING active Not Available Not Available No t Available nitrofurant oin monohydrate /macrocryst als 100 mg capsule TAKE 1 CAPSULE BY MOUTH TWICE DAILY FOR 7 DAYS 01/20 completed Not Available Not Available Not Available pregabalin 150 mg capsule TAKE ONE CAPSULE TWICE DAILY IN THE MORNING AND AT BEDTIME active Not Available Not Available No t Available pregabalin 200 mg capsule TAKE ONE CAPSULE TWICE DAILY IN THE MORNING AND AT BEDTIME 01/20 completed Not Available Not Available Not Available pregabalin 225 mg capsule TAKE ONE CAPSULE TWICE DAILY IN THE MORNING AND AT BEDTIME 01/20 completed Not Available Not Available Not Available atenolol-ch lorthalidon e Atenolol- Chlorthal idone 50-25MG Tablet 01/12 completed Statu s: 'Disc ontin ued'; Not Available Not Available Not Available levofloxaci n levoFLOXa jose 750MG Tablet 08/26 completed Statu s: 'Disc ontin ued'; Not Available Not Available Not Available pregabalin Pregabali n 100MG Capsule 01/20 completed Statu s: 'Curr ent'; Not Available Not Available Not Available FreeStyle Lite Strips USE TO TEST BLOOD SUGARS ONE A DAY active Not Available Not Available No t Available cholecalcif joseluis (vitamin D3) 1,250 mcg (50,000 unit) capsule TAKE 1 CAPSULE BY MOUTH ONCE WEEKLY active Not Available Not Available No t Available FreeStyle Jessie Lite kit Use to test blood sugar once daily 01/20 completed Not Available Not Available Not Available diclofenac 1 % topical gel APPLY 2 GRAMS TOPICALLY IF NEEDED IN THE MORNING AND AT BEDTIME 07/14 completed Not Available Not Available Not Available venlafaxine ER 225 mg tablet,exte nded release 24 hr TAKE ONE TABLET EVERY MORNING 07/14 completed Not Available Not Available Not Available oxycodone HCl-oxycodo ne-ASA three times a day.SCRIP T MUST LAST FOR [address] WHILE ON THIS MEDICATIO N 06/27 completed Statu s: 'Disc ontin ued'; Not Available Not Available Not Available Easy Touch Twist Lancets 33 gauge Use to test blood sugar once daily 01/20 completed Not Available Not Available Not Available naloxone 4 mg/actuatio n nasal spray FOR SUSPECTED OPIOID OVERDOSE. SPRAY 0.1mL IN ONE NOSTRIL. REPEAT IN ALTERNATE NOSTRIL 2-3 MINUTES IF NEEDED. SEEK MEDICAL ATTENTION IMMEDIATE LY EVEN IF PATIENT RESPONDS. 01/20 completed Not Available Not Available Not Available Trelegy Ellipta Trelegy Ellipta 200-62.5- 25MCG/ACT Aerosol Powder Breath Activated 01/20 completed Statu s: 'Curr ent'; Not Available Not Available Not Available Trelegy Ellipta 200 mcg-62.5 mcg-25 mcg powder for inhalation INHALE 1 PUFF BY MOUTH DAILY active Not Available Not Available No t Available Vitals Date Recorded Body height Body mass index (BMI) Body weight Provider Name and Address Organization Details Last Updated DateTime 01/20/2025 162.56 cm 28.8 kg/m2 78888.52 g Ciera leger [facility] 01/20/2025 14:33:39 Date Recorded Body height Body mass index (BMI) Body weight Provider Name and Address Organization Details Last Updated DateTime 01/29/2025 162.56 cm 28.8 kg/m2 40149.52 g Ciera leger [facility] 01/29/2025 10:23:54 Date Recorded Body height Body mass index (BMI) Body weight Provider Name and Address Organization Details Last Updated DateTime 04/30/2025 162.56 cm 28.8 kg/m2 37724.52 g IGOR MAZARIEGOS [facility] 04/30/2025 12:50:14 Date Recorded Body height Heart rate Body mass index (BMI) Body weight Oxygen saturation Oxygen saturation in Arterial blood by Pulse oximetry Respiratory rate Systolic And Diastolic Provider Name and Address Organization Details Last Updated DateTime 162.56 cm 89 /min 24.2 kg/m2 71132.5 2 g 98 % 98 % 14 /min 140/70 mm[Hg] Ciera leger [facility] 10:43:55 Date Recorded Body height Body mass index (BMI) Body weight Provider Name and Address Organization Details Last Updated DateTime 08/07/2025 162.56 cm 24.2 kg/m2 56126.52 g Sherin centeno [facility] 08/07/2025 11:13:48 Social History Question Answer Notes LastModified by Organizat ion Details LastModified Time Tobacco Smoking Status Former Smoker Ciera braden [facility] 07/14/2025 10:30:45 Are You Blind Or Do You Have Difficulty Seeing? No Information not available 07/14/2025 Are You Deaf Or Do You Have Serious Difficulty Hearing? No Information not available 07/14/2025 Which Illicit Or Recreational Drugs Have You Used? Marijuana Information not available 07/14/2025 How Many Years Have You Smoked Tobacco? 15 Information not available 07/14/2025 Do You Have Difficulty Walking Or Climbing Stairs? Yes Information not available 07/14/2025 Sex: Unknown Functional Status Question Answer Note LastModified by Organizat ion Details LastModified Time Do you use any illicit or recreational drugs? Yes Information not available 07/14/2025 What is your level of alcohol consumption? None Information not available 07/14/2025 Do you have transportation difficulties? No Information not available 07/14/2025 Are you able to walk independently without assistance or assistive devices? YESASSIST Information not available 07/14/2025 Do you have difficulty doing errands alone? Yes Information not available 07/14/2025 Are you able to care for yourself independently? Yes Information not available 07/14/2025 Do you have difficulty dressing, bathing, grooming, or toileting? No Information not available 07/14/2025 Mental Status Question Answer Note LastModified by Organization D etails LastModified Time Do you have difficulty concentrating, remembering or making decisions? No Information no t available 07/14/2025 Family History Nothing Reported. Medical History Condition Response Allergies/Hayfever N Coronary Artery Disease N Anxiety/Depression Y Breathing or lung disorders Y Emphysema N Nerve Disorders N Thyroid Problems N COPD Y Pacemaker N Anemia N Kidney/Bladder Problems Y Vascular Disease N Heart Trouble N Heart Attack ([place]) N Gastrointestinal Disease N Cholesterol N Diabetes Y Autoimmune disease N Bleeding Disorder N Inflammatory Joint disease N Orthotics N Arthritis N Seizures/Epilepsy N Blood Clot N AIDS/HIV N Congestive Heart Failure (CHF) N Acid Reflux (GERD) N Cancer N Stroke N Asthma N Circulation Problems N Peripheral Vascular Disease N Sleep Apnea Y Hepatitis N Heart Disease N Rheumatoid Arthritis N Arrhythmia N Pulmonary Embolism N Headaches N Fibromyalgia Y Hypertension Y Osteoporosis N Gynecological HistoryNo gynecological history recorded. Obstetrics History GPAL:G 0 P 0 0 0 0 Past Encounters Encounter ID Performer Location Encounter Start Date Encounter Closed Date Diagnosis/Indication Diagnosis SNOMED-CT Code Diagnosis ICD10 Code Diagnosis IMO Codes Diagnosis Note [id number] Talha Woods PA-C [facility] [address] [place] [address] 08/09/2024 13:48:07 08/28/2024 13:38:51 History of right total knee replacement 2657532768 387937 Z96.045 [id number] Johan Murcia MD [place] [address] [place] [address] 08/29/2024 09:40:17 09/11/2024 19:19:21 Lumbar spondylosis 999867257 M47.816 21846 Osteoporosis 91911803 M8 1.0 [id number] Lumbar spondylolisthesis 4910896591 02180 M43.16 [id number] Lumbar radiculopathy 128 641985 M54.16 18361 Spinal talon nosis in cervical region 24189885 M48.02 [id number] Johan Murcia MD [facility] [place] [address] [place] [address] 01/20/2025 14:17:31 02/07/2025 15:48:22 Lumbar spondylolisthesis 3521303896 93078 M43.16 [id number] 1. Grade 2 L4-5 spondyloli sthesis with neurogenic claudicati on2. Lumbar spinal stenosis3. Osteopenia 4. Chronic low back pain with bilateral radiculopa thy5. Asthma6. Fibromyalg ia7. Arthritis 1. Ordered MRI of lumbar spine to evaluate extent of stenosis and determine if additional levels are involved beyond L4-52. Patient will likely require L4-5 minimally invasive interbody fusion based on grade 2 spondyloli sthesis. Final surgical plan to be determined after MRI review3. Continue current medication s: pregabalin , oxycodone, and ibuprofen4 . Recommend vitamin D supplement ation and weight-kim ring activities for osteopenia management 5. Follow-up after MRI completion to discuss surgical interventi on6. Patient educated about surgical options and potential need for multilevel interventi on depending on MRI findings ICD-10: M43.16 - Spondyloli sthesis, lumbar regionICD- 10: M48.062 - Spinal stenosis, lumbar region with neurogenic claudicati onICD-10: M85.80 - Other specified disorders of bone density and structure, unspecifie d siteICD-10 : M54.16 - Radiculopa thy, lumbar region Spinal talon nosis of lumbar region 02989290 M48.062 [id number] Johan Murcia MD [facility] [place] [address] [place] [address] 01/29/2025 10:02:27 02/17/2025 06:17:56 Lumbar spondylolisthesis 8104053480 10792 M43.16 [id number] Spinal talon nosis of lumbar region 52773167 M48.062 [id number] 1. Grade 2 L4-5 spondyloli sthesis with severe central stenosis2. Neurogenic claudicati on3. L3-4 spinal stenosis with left lateral recess stenosis4. Failed conservati ve management 5. History of osteopenia 6. Vitamin D deficiency 1. Recommend L4-5 anterior lumbar interbody fusion with posterior instrument ed fusion2. L4-5 and L3-4 laminectom y for decompress ion. Patient is miserable completely disabled and failed all modes of conservati ve management . After reviewing the patient's history, physical exam and studies I have decided the patients chronicill ness with progressio n warrants elective major surgery. The patient has completed greater than 6weeks of physician directed nonoperati ve management of this condition to include medication s andphysica l therapy without improvemen t. I have further discussed the natural progressio n of this disease as well as the operative and non-operat edgar modalities that are appropriat e for treating this disease. The known risks of surgery includeinf ection, bleeding, damage to nerves and/or arteries, continued pain, loss of motion, spinal fluid leak,and the possible need for further surgeries. Risks of anesthesia such as nausea, vomiting, pneumonia, stroke, heart attack and . 3. Pre-operat egdar medical clearance required4. Vascular surgery consultati on for anterior approach5. Post-opera tive rehabilita tion plan discussed6 . Will provide lumbar brace post-opera tively to aid in fusion, decrease pain, and minimize opioid use7. Discussed surgical risks including infection, bleeding, CSF leak, non-union, and neurologic al injury8. energy scheduler to contact patient for scheduling 9. I will prescribe vitamin D 50,000 units weekly. ICD-10: M43.16 - Spondyloli sthesis, lumbar regionICD- 10: M48.062 - Spinal stenosis, lumbar region with neurogenic claudicati onICD-10: M54.16 - Radiculopa thy, lumbar region Vitamin D deficiency 347 21843 E55.9 43290 [id number] [facility] [place] [address] [place] [address] 04/30/2025 12:39:49 05/12/2025 08:38:10 Pain in bilateral feet 3586793450 3143575 M79.671 M79.964 [id number] Hammer toe 839319586 M20 .41 M20.42 [id number] Bilateral hallux valgus 0587993987 M20.11 M20.12 [id number] MD [facility] [place] [address] [place] [address] 07/14/2025 10:31:01 07/25/2025 08:27:22 Vitamin D deficiency 85444069 E55.9 62912 Preprocedu ral examination done 4361516770 91279 Z01.818 811346 Spinal talon nosis of lumbar region 69376491 M48.062 192170 Lumbar spondylolisthesis 2265663046 37517 M43.16 2941626 Lumbar radiculopathy 128 429070 M54.16 [id number] MD [facility] [place] [address] [place] [address] 08/07/2025 11:01:06 08/18/2025 14:56:25 History of operative procedure on lumbar spinal structure 397677303 Z98.8[address] Greater [address] ochanteric pain syndrome 9130566 M70.62 [id number] Health Concerns Section Related Observation LastModified by Organization Detai ls LastModified Time None Recorded Concern Status LastModified by Organization Details LastModified Time None Recorded Advance Directives Directive None Recorded Payers Insurance Date Sequence Insurance Name Policy Number Policy Mckinnon Covered Member ID Mckinnon Member ID Guarantor Name 08/18/2025 1 [facility] [place] - DOS ON OR AFTER 2023 - ONE CARE (MEDICARE REPLACEMENT/ADV ANTAGE - HMO) Juana Carbajal Lord [id number] Juana Lord 08/28/2024 1 [facility] [place] - DOS ON OR AFTER 2023 - INTERMEDIATE OPTIONS (MEDICARE REPLACEMENT/ADV ANTAGE - HMO) Juana Lord [id number] Juana Lord Notes Date Note Type Note Provider Name and Address Organization Details Recorded Time 01/20/2025 text/html HPI: 64-year-old female presents for follow-up of back and bilateral lower extremity pain, right greater than left, consistent with neurogenic claudication. Patient reports pain remains unchanged since last visit on 08/29/2024. Pain is located in the lower back and radiates down both legs equally. Symptoms worsen with standing and walking, and improve with sitting. Patient reports pain as 'everywhere' in lower extremities. Patient is miserable and failed nonoperative management.Prior treatment: Currently taking pregabalin, oxycodone, and ibuprofen for pain management. Previously evaluated on 08/29/2024 and was referred for DEXA scan due to concerns about bone quality. Johan Murcia MD [address], [place], [address], [facility] 01/20/2025 17:20:49 01/29/2025 text/html HPI: 64-year-old female presents with lumbar spondylolisthesis and neurogenic claudication with spinal stenosis. Patient reports back pain with bilateral lower extremity radiation, right greater than left. Pain increases with standing and walking, alleviates with sitting and leaning forward. Patient describes symptoms as completely miserable.Prior treatment: Failed all modes of nonoperative management. Currently taking pregabalin, oxycodone, and ibuprofen. Prior DEXA scan noted osteopenia. Patient has history of kidney failure 13 years ago requiring temporary dialysis, now resolved. No prior spine surgeries. Johan Murcia MD [address], [place], [address], [place] - [facility] 01/29/2025 13:30:57 04/30/2025 text/html I am seeing this patient under the supervision of Dr. Omer, who was available but who did not see the patient. HPI: Patient is a 65-year-old female presenting today regards to bilateral foot pain, right worse than left. She has pain in both forefeet however has most pain at the second toe on the right foot. She tells me that her great toe rubs on her second toe and causes a lot of pain. This has been going on for quite some time. She has difficulty with shoe wear secondary to her forefoot pain. Denies any interval trauma. Denies any fevers, chills, or paresthesias. PFMSH, Meds and ROS reviewed, updated and signed by me, and is located in the patient's chart. PHYSICAL EXAMINATION: The patient is well appearing and in no apparent distress. Alert and oriented x 3. Examination of bilateral feet reveals hallux valgus of the right foot with impingement on the second toe. Lesser, hammertoes noted bilaterally. Clawing noted of the left hallux IP joint. Edema noted at the dorsum of the hallux IP joint on the left. Mild callus noted at the medial aspect of the second toe middle phalanx where the great toe is impinging. Calf soft, nontender. Sensation intact to light touch in bilateral lower extremities. RADIOLOGY: X-rays were ordered, obtained, and reviewed today in our office. 3 views of bilateral feet reveal hallux valgus alignment on the right side. Hallux valgus interphalange ES through the IP joint on the left. Lesser toe hammertoes noted. IMPRESSION: Bilateral hallux valgus, impingement and rubbing between the hallux and second toe on the right, bilateral hammertoes PLAN: Discussed the findings and situation with the patient today. We discussed the role of hallux valgus correction with hammertoe correction on the right and hallux IP fusion and hammertoe correction on the left. Patient is having back surgery with Dr. Murcia in July. I recommended waiting until after she has recovered from this prior to undergoing any foot surgery. She was given a toe spacer to use between her hallux and second toe on the right side. We discussed supportive shoe wear. Offered a follow-up with one of our foot and ankle surgeons in June for further discussion of treatment options. Call with questions or concerns. The patient is ambulatory, but has weakness and/or instability of their extremity which requires stabilization from this semi-rigid/rigid orthosis to improve their function. Verbal and written instructions for the use and application of this item were given. Patient was instructed that should the brace result in increased pain, decreased sensation, increased swelling or an overall worsening of their medical condition, to please contact our office immediately. Pippa Brock PA-C [address], [place], [address], [facility] 05/02/2025 12:31:11 07/14/2025 text/html [age]-year-old female presenting for pre-operative evaluation prior to L4-L5 anterior lumbar interbody fusion with posterior interspinal fusion (360 fusion) with L3-L4 laminectomy.Patient reports ongoing back and leg pain. She has a documented slip at L4-L5 that is contributing to her symptoms.Patient currently takes ibuprofen daily for pain management, which will need to be discontinued prior to surgery.She lives alone but has personal care assistants who provide support. Patient is concerned about needing additional care hours post-operatively.Patie nt and family member inquired about recovery timeline, pain management, and potential risks of the procedure. Prior HPI: 64-year-old female presents with lumbar spondylolisthesis and neurogenic claudication with spinal stenosis. Patient reports back pain with bilateral lower extremity radiation, right greater than left. Pain increases with standing and walking, alleviates with sitting and leaning forward. Patient describes symptoms as completely miserable.Prior treatment: Failed all modes of nonoperative management. Currently taking pregabalin, oxycodone, and ibuprofen. Prior DEXA scan noted osteopenia. Patient has history of kidney failure 13 years ago requiring temporary dialysis, now resolved. No prior spine surgeries. Johan Murcia MD [address], [place], [address], [facility] 07/14/2025 17:03:21 08/07/2025 text/html 1 . First post-operative follow-up status post L4-L5 anterior lumbar interbody fusion with posterior instrumented spinal fusion performed on . Acute left hip pain localized to greater trochanter, VAS 6/10 65-year-old female presenting for her first post-operative follow-up after undergoing L4-L5 anterior lumbar interbody fusion followed by L4-L5 posterior instrumented spinal fusion on 07/24/2025 for spondylolisthesis and radiculopathy. Patient reports gradual improvement in her overall condition since surgery, though recovery has been somewhat slow. She was discharged home after surgery and is currently ambulating with a walker. Patient reports new onset of left hip pain localized to the greater trochanteric region, which she describes as her most significant current complaint. She denies radiation of pain down the leg. Patient also reports transient left knee pain two days ago, which she attributes to her previous knee replacement.Patient is currently taking hydromorphone and Tylenol for pain management. She reports taking Tylenol regularly (4 tablets daily) but has been hesitant to take the oxycodone that was also prescribed. She has been prescribed vitamin D supplementation post-operatively. Patient has received collagen dressings for her surgical wounds but has not yet started using them. She reports that a nurse has previously examined her wounds and stated they looked good. Johan Murcia MD [address] [place] [address] [address], [place], [address], [facility] 08/07/2025 14:45:37 OBGyn Episode No OBEpisode recorded.
--- OUTSIDE RECORDS SUMMARY | 2025-09-04 18:32 | XMS_ITS | Data Portability ---
Author Organization [employer] [facility], [facility] Address [address] [place] [address] Care Team Providers Care Applications Specialist Name Role Phone HIM CCA OTHER Assessment Encounter Date Assessment Date Assessment LastModified by Organization Details LastModified Time 07/04/2024 07/04/2024 I provided real -time medical direction via phone for this encounter and was available for additional phone-based assistance as needed. I have reviewed and agree with the Assessment and Plan as documented by the Pump Rebuilder. Patient given the opportunity to ask questions. [...] neurologic deficits and ambulates at baseline. Per civil engineering specialist on the scene, vital signs are stable [...] dipstick [address] [facility], [address] [place] [address], [id number] 14:03:50 Referral None recorded. Procedures None recorded. [...] Not available Not available Not available 07/03/2024 20361 8001 SNOMED Not Available [facility] - production 03:48:22 6004 atorvasta tin medicatio n Not available Not available Not available 07/03/2024 76934 RxNorm PARRISH MEDRANO MD [address] [place] [address],[address], [place], [address], [facility] 4 11:01:18 6005 alendrona te sodium medicatio n Not available Not available Not available 07/03/202418488 2 RxNorm PARRISH MEDRANO MD [address] [place] [address],[address], [place], [address], [facility] 4 11:01:32 Medications Name Sig Start Date [...] for severe pain. Please call and schedule MILITARY SOURCE OPERATIONS SPECIALIST Nurse visit or Chronic Pain Group [...] Body temperature Body height Heart rate Systolic And Diastolic Provider Name and Address Organization Details Last Updated DateTime 4 98 % 98 % 14 /min 28020.8 g 98.4 [degF] 152.4 cm 80 /min 126/78 mm[Hg] Not Available [facility] - production 09:30:03 [...] ICD10 Code Diagnosis IMO Codes Diagnosis Note 52662 Marlene Velazquez MD Main - [address] [phone] 07/04/2024 09:29:57 07/04/2024 16:20:07 Chronic low back pain 181625884 M54.50 Urinary symptoms 8897278 08 R39.9 Health Concerns Section Related Observation LastModified by Organization Detai ls LastModified Time None Recorded Concern Status LastModified by Organization Details LastModified Time None Recorded Advance Directives Directive None Recorded Payers Insurance Date Sequence Insurance Name Policy Number Policy Mckinnon Covered Member ID Mckinnon Member ID Guarantor Name 07/04/2024 1 [facility] - DOS ON OR AFTER 2023 - DUAL ELIGIBLE - RESIDENTIAL OPTIONS AND ONE CARE (MEDICARE REPLACEMENT/ADV ANTAGE - HMO) Juana Lord [id number] Juana Lord Notes Date Note Type Note [...] .................... .................... . CRC Nurse Triage Notes (Kortney Quinones): Chief Complaints: Altered Mental Status, UTI/Pyelonephritis PMH: Hypertension, COPD/Asthma, Diabetes Allergies: Aspirin, Penicillin Other Allergies: Atorvastatin,alendro kai Comments: HPI reviewed. No further information needed to process visit. 1700 Member was sleeping and did not want the visit today---- 07/03 member requesting a visit tomorrow 07/04 instead, visit r/s per member request- Pump Rebuilder Organization Information for Mark Johnston [email or web address] Legal Name: [facility] Address: [address] [place] [address], [place] [address], Front End Mechanic: Michael Pizarro MD [facility] No.: [id number] Pump Rebuilder POC Test Results from Mark Johnston Urine Dipstick (09:17:07) Urine leukocytes: - FRANK Urine nitrites: - NIT Urine urobilinogen: 0.2 URO Urine protein: 30 PRO Urine pH: 5.0 pH Urine blood: - BLO Urine specific gravity: 1.015 SG Urine ketones: - KET Urine bilirubin: - HUMERA Urine glucose: - GLU .................... .................... .................... .................... .................... .................... .................... . Pump Rebuilder Note From Mark Johnston: Patient alert and [...] dip negative. Pale yellow, clear, no sediment. [facility] advises patient to follow up with PCP if symptoms continue.Red flags, patient education discussed. Pump Rebuilder Allergies: Aspirin, Penicillin .................... .................... .................... .................... .................... .................... .................... . Disposition: Fulfilled Marlene Velazquez MD [address] [place] [address],[address], [place], [address], [employer] 07/04/2024 10:38:05 OBGyn Episode No OBEpisode recorded.
--- OUTSIDE RECORDS SUMMARY | 2025-09-04 18:32 | XMS_ITS | Encounter Summary ---
Author Organization [employer] Address [address] 7t [place] [address] Care Team Providers Care Etl Software Engineer Name Role Phone Name, Boo FARLEY Primary Care Provider [phone] Ira Orozco PharmD Unavailable [phone] Reason for Visit * Reason Onset Date Comments Med Refill 07/14/2025 Encounter Details Date Type Department Care Team ([facility] Contact Info) Description 07/14/2025 Telephone [facility] MEDICINE [address] [place], [place] [phone] Name, MD Boo [address] [place] [address] Med Refill Social History Tobacco Use Types [...] Telephone Encounter - Charity Hardy LPN - 07/14/2025 10:29 AM EDT Medication pended to PCP. * Telephone Encounter - Diego Lozano - 07/14/2025 10:17 AM EDT TC from pt requesting medication refill. Medications needing refill : ibuprofen 800 MG tablet To be sent to: [id number] - [address] documented in this encounter Plan of Treatment Upcoming Encounters Date Type Department Care Team ([facility] st Contact Info) Description 09/09/2025 3:45 PM EST Office Visit [facility] MEDICINE [address] [place] [address] Name, MD Boo [address] [place] [address] 12/12/2025 10:30 AM EST Telemedicine [facility] MEDICINE [address] [place] [address] Ame Love, RN 12/16/2025 10:15 AM EST Office Visit [facility] CHC ADULT DENTAL [address] [place] [address] Dangelo Pino 01/14/2026 10:30 AM EDT Office Visit [facility] OPTOMETRY [address] [place] [address] Pedro, Katlyn, OD [address] [place] [address] documented as of this encounter Goals Goal Patient Goal Type Associated Problems Recent Progress Patient-Stated? Author Blood Pressure < 140/90 Blood Pressure 132/76( 025 9:46 AM EDT) No Moe Johnson documented as of this encounter Visit Diagnoses Not on filedocumented in this encounter Additional Health Concerns Assessment Noted Time PHQ-9 Depression Total Score: 025 10:47 AM EDT documented as of this encounter Care Teams Etl Software Engineer Relationship Specialty Start Date End Date Name, MD Boo [address] [place] [address] PCP - General Family Medicine 04/26/19 Ira Orozco PharmD [address] [place] [address] Pharmacist Internal Medicine 02/03/25 Janessa Fraga 11/23/24 documented as of this encounter
--- OUTSIDE RECORDS SUMMARY | 2025-09-04 18:32 | XMS_ITS | Encounter Summary ---
Author Organization [employer] Address [address] 7t [place] [address] Care Team Providers Care Soil Technician Name Role Phone Name, Boo FARLEY Primary Care Provider [phone] Ira Orozco PharmD Unavailable [phone] Reason for Visit * Reason Onset Date Comments Prior Authorization 07/14/2025 Encounter Details Date Type Department Care Team ([facility] Contact Info) Description 07/14/2025 Telephone [facility] MEDICINE [address] [place], [place] [phone] Name, MD Boo [address] [place] [address] Prior Authorization Social History Tobacco Use Types Packs/Day Years [...] encounter Miscellaneous Notes * Telephone Encounter - Diego Lozano - 07/14/2025 10:20 AM EDT TC from Disha MANN of pt looking to have pcp office Appeal Lidocaine patch denial . Reports insurance just needs additional information and DX of why pt needs script documented in this encounter Plan of Treatment Upcoming Encounters Date Type Department Care Team (Late st Contact Info) Description 09/09/2025 3:45 PM EST Office Visit [facility] MEDICINE [address] [place] [address] Name, MD Boo [address] [place] [address] 12/12/2025 10:30 AM EST Telemedicine [facility] MEDICINE [address] [place] [address] Ame Love RN 12/16/2025 10:15 AM EST Office Visit [facility] CHC ADULT DENTAL [address] [place] [address] Dangelo Pino 01/14/2026 10:30 AM EDT Office Visit [facility] OPTOMETRY [address] [place], [place] [phone] Katlyn Vasquez, LESLEY 230 [place] [address] documented as of this encounter Goals Goal [...] documented as of this encounter Care Teams Soil Technician Relationship Specialty Start Date End Date Name, MD Boo [address] [place] [address] PCP - General Family Medicine 04/26/19 Ira Orozco PharmD [address] [place] [address] Pharmacist Internal Medicine 02/03/25 Janessa Fraga 11/23/24 documented as of this encounter
--- OUTSIDE RECORDS SUMMARY | 2025-09-04 18:32 | XMS_ITS | Encounter Summary ---
Author Organization [employer] Address [address] 7t [place] [address] Care Team Providers Care Tubular Stock Glass Bulb Machine Former Name Role Phone Name, Boo FARLEY Primary Care Provider [phone] Ira Orozco PharmD Unavailable [phone] Reason for Visit * Reason Onset Date Comments Med Refill 08/19/2025 Encounter Details Date Type Department Care Team ([facility] Contact Info) Description 08/19/2025 Telephone [facility] MEDICINE [address] [place], [place] [phone] Name, MD Boo [address] [place] [address] Med Refill Social History Tobacco Use Types [...] Telephone Encounter - Charity Hardy LPN - 08/19/2025 10:16 AM EDT Tylenol and Multivitamin have refills and Venlafaxine isn't prescribed by PCP. * Telephone Encounter - Yenny Carter - 08/19/2025 10:05 AM EDT TC from pt requesting medication refill. Medications needing refill : - Acetaminophen Extra Strength 500 MG tablet - Multiple Vitamin (Multivitamin) tablet - venlafaxine XR (Effexor XR) 150 MG 24 hr capsule To be sent to: -[id number] - [place] - [address] [place] [address] documented in this encounter Plan of Treatment Upcoming Encounters Date Type Department Care Team ([facility] st Contact Info) Description 09/09/2025 3:45 PM EST Office Visit [facility] MEDICINE [address] [place] [address] Name, MD Boo [address] [facility] [place] [address] 12/12/2025 10:30 AM EST Telemedicine [facility] MEDICINE [address] [place] [address] Ame Love, RN 12/16/2025 10:15 AM EST Office Visit [facility] CHC ADULT DENTAL [address] [place] [address] Dangelo Pino 01/14/2026 10:30 AM EDT Office Visit [facility] OPTOMETRY [address] [place] [address] Katlyn Vasquez, OD [address] [place] [address] documented as of this encounter Goals Goal Patient Goal Type Associated Problems Recent Progress Patient-Stated? Author Blood Pressure < 140/90 Blood Pressure 132/76( 025 9:46 AM EDT) No Moe Johnson documented as of this encounter Visit Diagnoses Not on filedocumented in this encounter Additional Health Concerns Assessment Noted Time PHQ-9 Depression Total Score: 10 025 10:47 AM EDT documented as of this encounter Care Teams Tubular Stock Glass Bulb Machine Former Relationship Specialty Start Date End Date Name, MD Boo [address] [place] [address] PCP - General Family Medicine 04/26/19 Ira Orozco PharmD [address] [place] [address] Pharmacist Internal Medicine 02/03/25 Janessa Fraga 11/23/24 documented as of this encounter
--- OUTSIDE RECORDS SUMMARY | 2025-09-04 18:32 | XMS_ITS | Encounter Summary ---
Author Organization [employer] Address [address] [facility] 7t [place] [address] Care Team Providers Care Laborer Chicken Farm Name Role Phone Name, Boo FARLEY Primary Care Provider [phone] Ira Orozco PharmD Unavailable [phone] Reason for Visit * Reason Comments Med Refill Encounter Details Date Type Department Care Team ([facility] Contact Info) Description 08/05/2025 Refill [facility] MEDICINE [address] [place], [place] [phone] Name, MD Boo [address] [place], [place] [phone] Social History Tobacco Use Types Packs/Day Years [...] Description 09/09/2025 3:45 PM EST Office Visit [facility] MEDICINE [address] [place] [address] Name, MD Boo [address] [place] [address] 12/12/2025 10:30 AM EST Telemedicine [facility] MEDICINE [address] [place] [address] Ame Love, GEM 12/16/2025 10:15 AM EST Office Visit [facility] CHC ADULT DENTAL [address] [place] [address] Dangelo Pino 01/14/2026 10:30 AM EDT Office Visit [facility] OPTOMETRY [address] [place] [address] Katlyn Vasquez, OD [address] [place] [address] documented as of this encounter Goals Goal [...] documented as of this encounter Care Teams Laborer Chicken Farm Relationship Specialty Start Date End Date Name, MD Boo [address] [place] [address] PCP - General Family Medicine 04/26/19 Ira Orozco PharmD [address] [place] [address] Pharmacist Internal Medicine 02/03/25 Janessa Fraga 11/23/24 documented as of this encounter
--- OUTSIDE RECORDS SUMMARY | 2025-09-04 18:32 | XMS_ITS | Encounter Summary ---
Author Organization [employer] Address [address] [facility] 7t [place] [address] Care Team Providers Care Industrial Arts Public School Teacher Name Role Phone Name, Boo FARLEY Primary Care Provider [phone] Ira Orozco PharmD Unavailable [phone] Encounter Details Date Type Department Care Team (Latest Contact Info) Description 09/04/2025 Travel Social History Tobacco Use Types Packs/Day [...] Description 09/09/2025 3:45 PM EST Office Visit [facility] MEDICINE [address] [place] [address] Name, MD Boo [address] [place] [address] 12/12/2025 10:30 AM EST Telemedicine [facility] [address] [place] [address] Ame Love, GEM 12/16/2025 10:15 AM EST Office Visit [facility] CHC ADULT DENTAL [address] [place] [address] Dangelo Pino 01/14/2026 10:30 AM EDT Office Visit [facility] OPTOMETRY [address] [place] [address] Katlyn Vasquez, OD 230 [place] [address] documented as of this encounter Goals Goal [...] documented as of this encounter Care Teams Industrial [employer] Public [employer] Teacher Relationship Specialty Start Date End Date Name, MD Boo [address] [place] [address] PCP - General Family Medicine 04/26/19 Ira Orozco, LesleyD [address] [place] [address] Pharmacist Internal Medicine 02/03/25 Janessa Fraag 11/23/24 documented as of this encounter
--- OUTSIDE RECORDS SUMMARY | 2025-09-04 18:32 | XMS_ITS | Encounter Summary ---
Author Organization [employer] Address [address] 7t [place] [address] Care Team Providers Care Diabetes Specialist Name Role Phone Name, Boo FARLEY Primary Care Provider [phone] Ira Orozco PharmD Unavailable [phone] Reason for Visit * Reason Onset Date Comments FYI/Letter 10/28/2024 Encounter Details Date Type Department Care Team ([facility] Contact Info) Description 10/28/2024 Telephone [facility] MEDICINE [address] [place], [place] [phone] Name, MD Boo [address] [place] [address] FYI/Letter Social History Tobacco Use Types Packs/Day [...] from pt daughter Dirk regarding prior message. Childrens Club Attendant informed her of 7-14 business days for letter to be completed. Dirk verbalized understanding and stated she would like to leave a note as a FYI informing PCP pt is currently admitted at [facility] due to mental health If any questions or concerns contact [phone] * Telephone Encounter - Christen Hurtado - 11/04/2024 9:31 AM EST Tc from status of letter that was asked the day of pt appointment , pt was transfer to medical records as pt was transfer back to call center as per letter she's requesting is not available yet and pt is requesting a callback [phone] * Telephone Encounter - Christen Hurtado - 10/28/2024 1:37 PM EST Tc from [facility] informing that pt was seen by pcp and she will like to inform PCP to add in the letter that was ask for pt to add due to medical condition she requires a first floor apartment [phone] documented in this encounter Plan of Treatment Upcoming Encounters Date Type Department Care Team (Late st Contact Info) Description 09/09/2025 3:45 PM EST Office Visit [facility] MEDICINE [address] [place] [address] Name, MD Boo [address] [place] [address] 12/12/2025 10:30 AM EST Telemedicine [facility] MEDICINE [address] [place] [address] Ame Love, GEM 12/16/2025 10:15 AM EST Office Visit [facility] CHC ADULT DENTAL [address] [place] [address] Dangelo Pino 01/14/2026 10:30 AM EDT Office Visit [facility] OPTOMETRY [address] [place] [address] Katlyn Vasquez, OD [address] [place] [address] documented as of this encounter Goals Goal [...] documented as of this encounter Care Teams Diabetes Specialist Relationship Specialty Start Date End Date Name, MD Boo [address] [place] [address] PCP - General Family Medicine 04/26/19 Ira Orozco, Nelida [address] [place] [address] Pharmacist Internal Medicine 02/03/25 Janessa Fraga 11/23/24 documented as of this encounter
--- OUTSIDE RECORDS SUMMARY | 2025-09-04 18:32 | XMS_ITS | Encounter Summary ---
Author Organization [employer] Address [address] [facility] 7t [place] [address] Care Team Providers Care Pressure Welder Name Role Phone Name, Boo FARLEY Primary Care Provider [phone] Ira Orozco PharmD Unavailable [phone] Reason for Visit * Reason Comments Med Refill Encounter Details Date Type Department Care Team ([facility] Contact Info) Description 09/04/2025 Refill [facility] MEDICINE [address] [place], [place] [phone] Name, MD Boo [address] [place], [place] [phone] Lumbar radiculopathy Social History Tobacco Use Types [...] 09/09/2025 3:45 PM EST Office Visit [facility] MEDICINE [address] [place] [address] Name, MD Boo [address] [place] [address] 12/12/2025 10:30 AM EST Telemedicine [facility] MEDICINE [address] [place] [address] Ame Love, RN 12/16/2025 10:15 AM EST Office Visit [facility] CHC ADULT DENTAL [address] [place] [address] Dangelo Pino 01/14/2026 10:30 AM EDT Office Visit [facility] OPTOMETRY [address] [place] [address] Katlyn Vasquez, LESLEY [address] [place] [address] documented as of this encounter Goals Goal [...] documented as of this encounter Care Teams Pressure Welder Relationship Specialty Start Date End Date Name, MD Boo [address] [place] [address] PCP - General Family Medicine 04/26/19 Ira Orozco PharmD [address] [place] [address] Pharmacist Internal Medicine 02/03/25 Janessa Fraga 11/23/24 documented as of this encounter
--- OUTSIDE RECORDS SUMMARY | 2025-09-04 18:32 | XMS_ITS | Encounter Summary ---
Author Organization [employer] Address [address] [facility] 7t [place] [address] Care Team Providers Care Vacuum Truck Driver Name Role Phone Name, Boo FARLEY Primary Care Provider [phone] Ira Orozco PharmD Unavailable [phone] Reason for Visit * Reason Onset Date Comments CHILD AND ADOLESCENT PSYCHOLOGIST AGreement renewed today 09/04/2025 Abnormal UTOX 09/04/2025 Encounter Details Date Type Department Care Team ([facility] Contact Info) Description 09/04/2025 Telephone [facility] MEDICINE [address] [place] [address] Ame Love, RN CHILD AND ADOLESCENT PSYCHOLOGIST AGreement renewed today; Abnormal UTOX Social History Tobacco Use Types Packs/Day Years [...] encounter Miscellaneous Notes * Telephone Encounter - Ame Love RN - 09/04/2025 11:22 AM EDT Pt had CHILD AND ADOLESCENT PSYCHOLOGIST Renewal appointment today UTOX Pos MTD, sent out for MTD confirmation BPI completed on: 09/04/2025 , pain severity score: 7, activity interference score: 5 BPI completed on: 08/07/2024 , pain severity score: 8, activity interference score: 6 Pt c/o increased pain in her back since her surgery in July and is asking for increase in painmedication. Scheduled pt to see you 09/09/25 to discuss, documented in this encounter Plan of Treatment Upcoming Encounters Date Type Department Care Team (Late st Contact Info) Description 09/09/2025 3:45 PM EST Office Visit [address] [address] Name, MD Boo [address] [place] [address] 12/12/2025 10:30 AM EST Telemedicine [facility] MEDICINE [address] [place] [address] Ame Love, RN 12/16/2025 10:15 AM EST Office Visit [facility] CHC ADULT DENTAL [address] [place] [address] Dangelo Pino 01/14/2026 10:30 AM EDT Office Visit [facility] OPTOMETRY [address] [place] [address] Katlyn Vasquez, OD [address] [place] [address] documented as of this encounter Goals Goal [...] documented as of this encounter Care Teams Vacuum Truck Driver Relationship Specialty Start Date End Date Name, MD Boo [address] [place] [address] PCP - General Family Medicine 04/26/19 Ira Orozco, Nelida [address] [place] [address] Pharmacist Internal Medicine 02/03/25 Janessa Fraga 11/23/24 documented as of this encounter
--- OUTSIDE RECORDS SUMMARY | 2025-09-04 18:33 | XMS_ITS | Encounter Summary ---
Author Organization [employer] Address [address] [facility] 7t [place] [address] Care Team Providers Care Upholstered Goods Crafter Name Role Phone Name, Boo FARLEY Primary Care Provider [phone] Ira Orozco PharmD Unavailable [phone] Reason for Visit * Reason Comments Med Refill Encounter Details Date Type Department Care Team ([facility] Contact Info) Description 06/04/2025 Refill [facility] MEDICINE [address] [place], [place] [phone] Name, MD Boo [address] [place], [place] [phone] Social History Tobacco Use Types Packs/Day Years [...] Office Visit [facility] MEDICINE [address] [place] [address] Name, MD Boo [address] [place] [address] 12/12/2025 10:30 AM EST Telemedicine [facility] MEDICINE [address] [place] [address] Ame Love, GEM 12/16/2025 10:15 AM EST Office Visit [facility] CHC ADULT DENTAL [address] [place] [address] Dangelo Pino 01/14/2026 10:30 AM EDT Office Visit [facility] OPTOMETRY [address] [place] [address] Katlyn Vasquez, OD [address] [place] [address] documented as of this encounter Goals Goal Patient Goal Type Associated Problems Recent Progress Patient-Stated? Author Blood Pressure < 140/90 Blood Pressure 132/76( 025 9:46 AM EDT) No Moe Johsnon documented as of this encounter Visit Diagnoses Not on filedocumented in this encounter Additional Health Concerns Assessment Noted Time PHQ-9 Depression Total Score: 10 025 10:47 AM EDT documented as of this encounter Care Teams Upholstered Goods Crafter Relationship Specialty Start Date End Date Name, MD Boo [address] [place] [address] PCP - General Family Medicine 04/26/19 Ira Orozco PharmD [address] [place] [address] Pharmacist Internal Medicine 02/03/25 Janessa Fraga 11/23/24 documented as of this encounter
== END 2025-09-04 17:12 | disposition home or self-care (01) ==
LOC: HO.LNP 17:11
PROVIDERS: Visit Provider Internal Medicine Geriatric Medicine
DX: Z51.81 Encounter for therapeutic drug level monitoring (principal); Z79.891 Long term (current) use of opiate analgesic
CPT/HCPCS: 80307

== ENCOUNTER 2025-09-09 16:08 | Outpatient (REF) | payer OTHER, SELFPAY ==
--- OUTSIDE RECORDS SUMMARY | 2025-09-04 10:30 | XMS_ITS | Encounter Summary ---
Author Organization [employer] Address [address] [facility] [address] [place] [address] Care Team Providers Care Snow Fence Erector Name Role Phone Name, Boo FARLEY Primary Care Provider [phone] Ira Orozco PharmD Unavailable [phone] Reason for Visit * Reason Comments [employer] Renewal Encounter Details Date Type Department Care Team (Latest Contact Info) Description 09/04/2025 11:30 AM EDT Clinical Support [address] [phone] Ame Love RN Long-term current use of opiate analgesic (Primary Dx) Social History Tobacco Use Types Packs/Day Years [...] Answer Date Recorded Patient Health Questionnaire-9 Score 10 05/16/2025 Patient Health Questionnaire-9 Score 10 05/16/2025 Last PHQ-9: Questionnaire Data Not on file 0 05/16/2025 Housing Stability Answer Date Recorded What is your housing situation today? I have baudilio spence 05/16/[address] you li ve. Do you have problems with any of the following? None of the above 05/16/2025 Food Insecurity Answer Date Recorded Within the [...] Answer Date Recorded Patient Health Questionnaire-2 Score 3 05/16/2025 Internet Access Answer Date Recorded Internet Access Q1 Yes 05/17/2025 Internet Access Q2 Not on file 05/17/2025 Comments No Sex and Gender Information Value Date Recorded Sex Assigned at Female 09/05/2022 10:16 AM EDT Legal Sex Female 10:16 AM EDT Gender Identity Female 09/05/2022 10:16 AM EDT Sexual Orientation Straight 09/05/2022 10 :16 AM EDT documented as of this encounter Progress Notes * Ame Love RN - 09/04/2025 11:30 AM EDT SUBJECTIVE: Juana Lord is a 65 y.o. year old female who presents for [employer] Renewal Preferred language for medical information: Belarusian Interpreted needed: No Juana Lord does report adherence to Percocet 5 mg, take 1 tablet every 8 hours PRN, last refilled 08/29/2025. The patient last took Percocet on: 09/04/2025 Medication is: 70% % effective at alleviating pain. Pt stating that since her surgery on 07/24/25 her back pain has increased significantly. She is asking if PCP will increase her pain medications. OBJECTIVE: CLAIM ATTORNEY checked: 09/04/2025 Pill count completed for Percocet , count today is 74 , anticipated count should be 65, this is as expected. Vital Signs Pain Score: 7 Pain Loc: Back Pain Education: Yes Additional pain site: hips L>R and neck Last PCP visit: 05/16/2025 BPI completed on: 09/04/2025 , pain severity score: 7, activity interference score: 5 BPI completed on: 08/07/2024 , pain severity score: 8, activity interference score: 6 Controlled substance agreement signed: Controlled Substance Agreement 09/04/2025 Controlled substance agreement: signed and up to date [employer] OPERATOR Tier: 2. Per message from PCP today, pt to be Tele [employer] OPERATOR RV, in person for her renewals Current Medications[1] Smoking status: Denies ETOH use: Denies Illicit substances: Denies Marijuana use: Yes, drops, Marijuana card: No , Marijuana Acquired from: Dispensary Lab Results Component Value Date POCTHC Positive (A) 09/04/2025 POCCOCAINEUR Negative 09/04/2025 POCOPIATEUR Negative 09/04/2025 DOAUR Negative 09/04/2025 POCAMPHETAMI Negative 09/04/2025 POCBENZODIUR Negative 09/04/2025 POCBARBSCRN Negative 09/04/2025 POCMETHADOUR Positive (A) 09/04/2025 POCBUPSCRN Negative 09/04/2025 POCTCAUR Positive (A) 09/04/2025 POCMDMAUR Negative 09/04/2025 POCOXYCODONE Positive (A) 09/04/2025 POCPHENCYCUR Negative 09/04/2025 PROPOXUR Negative 09/04/2025 FENTANYLURIN Negative 09/04/2025 ASSESSMENT: Encounter Diagnosis Name Primary? Long-term current use of opiate analgesic Yes PLAN: Pt was advised she will need to have an appointment with PCP to discuss her changes in her pain. Information on pain group given: Yes Information on acupuncture given: Yes Narcan education provided: Yes Narcan prescription: active Will update PCP with UTOX results and BPI scoring. Controlled substance agreement reviewed and signed. A copy was given to the patient. Juana Kumar continue taking medications as prescribed and has verbalized understanding of care plan. Future Appointments Date Time Provider Department Center 09/04/2025 11:30 AM Ame Love RN MEDICINE [facility] 09/09/2025 3:45 PM Boo Hastings MD MEDICINE [facility] 12/12/2025 10:30 AM Ame Love RN MEDICINE [facility] 12/16/2025 10:15 AM Dangelo Pino [facility] [place] [facility] 01/14/2026 10:30 AM Katlyn Vasquez, OD [facility] Ame Love RN [1] Current Outpatient Medications: naloxone (Narcan) 4 mg/0.1 mL nasal spray, Administer 1 spray (4 mg) into affected nostril(s) if needed for opioid reversal., Disp: 2 each, Rfl: 2 oxyCODONE-acetaminophen (Percocet) 5-325 MG tablet, Take 1 tablet by mouth every 8 (eight) hours ifneeded for severe pain for up to 28 days. Do not start before August 29, 2025., Disp: 84 tablet, Rfl: 0 Acetaminophen Extra Strength 500 MG tablet, TAKE ONE TABLET BY MOUTH EVERY 8 HOURS NEEDED MILD PAIN, Disp: 90 tablet, Rfl: 11 albuterol (2.5 MG/3ML) 0.083% nebulizer solution, INHALE ONE AMPULE USING A NEBULIZER FOUR TIMES DAILY, Disp: 90 mL, Rfl: 1 albuterol 108 (90 Base) MCG/ACT inhaler, INHALE 2 PUFFS BY MOUTH EVERY 4 TO 6 HOURS NEEDED FOR SHORTNESS OF BREATH OR WHEEZING, Disp: , Rfl: Alcohol Swabs (Alcohol Prep) 70 % pads, Use to test blood sugar once daily, Disp: 100 each, Rfl: 11 amitriptyline (Elavil) 25 MG tablet, TAKE 1 TABLET BY MOUTH EVERY NIGHT AT BEDTIME, Disp: 30 tablet, Rfl: 1 amLODIPine (Norvasc) 5 MG tablet, Take 1 tablet (5 mg) by mouth in the morning., Disp: 30 tablet, Rfl: 11 azithromycin (Zithromax) 500 MG tablet, TAKE ONE TABLET THREE TIMES PER WEEK ON MONDAY, MONDAY AND MONDAY MORNING, Disp: , Rfl: bisacodyl (Dulcolax) 5 MG EC tablet, Take 1 tablet (5 mg) by mouth if needed each day for constipation. Do not crush, chew, or split., Disp: 30 tablet, Rfl: 11 Blood Glucose Monitoring Suppl (FreeStyle [place] Lite) w/Device kit, Use to test blood sugar once times daily, Disp: 1 kit, Rfl: 0 cholecalciferol (Vitamin D-3) 1.25 MG (73783 UT) capsule, Take 50,000 Units by mouth 1 (one) time per week. (Patient taking differently: Take 50,000 Units by mouth 1 (one) time per week.), Disp: , Rfl: Diclofenac Sodium 1 % gel, APPLY 2 GRAMS TOPICALLY IF NEEDED IN THE MORNING AND AT BEDTIME (MUSCLE PAIN)., Disp: 100 g, Rfl: 3 Easy Touch Lancets 33G/Twist misc, Use to test blood sugar once daily, Disp: 100 each, Rfl: 11 estradiol (Estrace) 0.1 MG/GM vaginal cream, Insert 1 g vaginally x 14 days, then use 1 g vaginallytwice weekly ongoing after that, Disp: 42.5 g, Rfl: 0 ezetimibe (Zetia) 10 MG tablet, TAKE ONE TABLET EVERY MORNING, Disp: 30 tablet, Rfl: 11 FREESTYLE LITE test strip, Use to test blood sugar once times daily, Disp: 100 each, Rfl: 12 hydrOXYzine HCl (Atarax) 25 MG tablet, TAKE ONE TABLET EVERY TWELVE HOURS NEEDED FOR ITCHING OR FOR ANXIETY, Disp: 28 tablet, Rfl: 0 ibuprofen 800 MG tablet, TAKE 1 TABLET BY MOUTH EVERY 8 HOURS NEEDED FOR MILD PAIN, Disp: 30 tablet, Rfl: 0 Lidocaine (HM Lidocaine Patch) 4 % patch, Apply 1 patch topically Once per day., Disp: 30 patch, Rfl: 3 montelukast (Singulair) 10 MG tablet, TAKE 1 TABLET BY MOUTH EVERY EVENING, Disp: 90 tablet, Rfl: 1 Multiple Vitamin (Multivitamin) tablet, TAKE ONE TABLET EVERY MORNING, Disp: 90 tablet, Rfl: 1 omega-3 (fish oil) 1000 MG capsule, Take 1 capsule by mouth in the morning. OTC, Disp: , Rfl: omeprazole (PriLOSEC) [address] capsule, Take 1 capsule (20 mg) by mouth before breakfast. Do not crush or chew., Disp: 30 capsule, Rfl: 11 polyethylene glycol, PEG, 3350 (MiraLax) 17 GM/SCOOP powder, Take 17 g by mouth Once per day., Disp: 527 g, Rfl: 11 pregabalin (Lyrica) 150 MG capsule, TAKE 1 CAPSULE(150 MG) BY MOUTH TWICE DAILY IN THE MORNING AND AT BEDTIME, Disp: 60 capsule, Rfl: 0 SUMAtriptan (Imitrex) 100 MG tablet, TAKE 1 TABLET BY MOUTH AT ONSET OF MIGRAINE. MAY REPEAT 1 TIMEAFTER 2 HOURS NEEDED, Disp: 9 tablet, Rfl: 2 theophylline ER (Uniphyl) 400 MG 24 hr tablet, Take 1 tablet by mouth at bedtime., Disp: , Rfl: topiramate 50 MG tablet, TAKE ONE TABLET IN THE MORNING AND EVENING, Disp: 60 tablet, Rfl: 5 Trelegy Ellipta 200-62.5-25 MCG/ACT aerosol powder , TAKE 1 PUFF BY MOUTH EVERY DAY, Disp: , Rfl: venlafaxine XR (Effexor XR) 150 MG 24 hr capsule, Take 150 mg by mouth in the morning., Disp: , Rfl: zolpidem (Ambien) 10 MG tablet, Take 1 tablet by mouth at bed time., Disp: , Rfl: zolpidem (Ambien) 5 MG tablet, TAKE 1 TABLET BY MOUTH AT BEDTIME NEEDED IF YOU AWAKEN IN THE NIGHT, Disp: , Rfl: documented in this encounter Plan of Treatment Upcoming Encounters Date Type Department Care Team (Late st Contact Info) Description 11/28/2025 9:00 AM EST Office Visit [facility] MEDICINE [address] [place] [phone] Name, MD Boo [address] [place] [address] 12/12/2025 10:30 AM EST Telemedicine [facility] MEDICINE [address] [place] [address] Ame Love, GEM 12/16/2025 10:15 AM EST Office Visit [facility] CHC ADULT DENTAL [address] [place] [address] Dangelo Pino 01/14/2026 10:30 AM EDT Office Visit [facility] OPTOMETRY [address] [place] [address] Katlyn Vasquez, OD [address] [place] [address] documented as of this encounter Goals Goal Patient Goal Type Associated Problems Recent Progress Patient-Stated? Author Blood Pressure < 140/90 Blood Pressure 168/68( 025 3:40 PM EST) No Moe Johnson documented as of this encounter Procedures Procedure Name Priority Date/Time Associated Diagnosis Comments POCT COY-14 URINE DRUG SCREEN Routine 09/04/2025 11:17 AM EDT Long-term current use of opiate analgesic METHADONE SCREEN, URINE Routine 09/04/2025 11:00 AM EDT Long-term current use of opiate analgesic documented in this encounter Results * (ABNORMAL) POCT COY-14 Urine Drug Screen (09/04/2025 11:17 AM EDT) THC Positive(A) Negative Cocaine Screen, Urine Negative Negative Opiate Screen, Urine Negative Negative Methamphetamine Screen Urine Negative Negative Amphetamine Screen, Urine Negative Negative Benzodiazepines Screen, Urine Negative Negative Barbiturate Screen, Urine Negative Negative Methadone Screen, Urine Positive(A) Negative Buprenophine Screen, Urine Negative Negative TCA, Urine Positive(A) Negative MDMA Urine Negative Negative ng/mL Oxycodone Screen, Urine Positive(A) Negative Comment:[employer] OPERATOR pt on Percocet Phencyclidine (PCP), Urine Negative Negative Propoxyphene, Urine Negative Negative Fentanyl, Urine Negative Negative Urine Urine specimen obtained by clean catch procedure / Unknown 09/04/2025 11:17 AM EDT Narrative Ame Love RN - 09/04/2025 11:17 AM EDT UTOX cup Lot#[id number] Exp. 08/12/26 Internal Pass Control us Boo Hastings MD POINT OF CARE TEST ENTER/EDIT OR DERABLES Final Result * Drug Monitoring, Methadone Metabolite, Screen, Urine (09/04/2025 11:00 AM EDT) Methadone Screen, Urine Not Detected Not Detect ng/mL [facility] Comment:Methadone cut-off is 300 ng/mL.Positive results are unconfirmed and should not be used fornon-medical purposes. Urine (Urine, Random) 09/04/2025 11:00 AM EDT 09/04/2025 5:11 PM EDT us Boo Hastings MD LAB URINE ORDERABLES Final Resul t [facility] [address] [place] [phone] documented in this encounter Visit Diagnoses Diagnosis Long-term current use of opiate analgesic- Primary Encounter for long-term (current) use of other medications documented in this encounter Additional Health Concerns Assessment Noted Time PHQ-9 Depression Total Score: 10 05/16/ 025 10:47 AM EDT documented as of this encounter Care Teams Snow Fence Erector Relationship Specialty Start Date End Date Name, MD Boo [address] [facility] [place] [address] PCP - General Family Medicine 04/26/19 Ira Orozco PharmD [address] [place] [address] Pharmacist Internal Medicine 02/03/25 Janessa Fraga 11/23/24 documented as of this encounter
--- OUTSIDE RECORDS SUMMARY | 2025-09-09 15:45 | XMS_ITS | Encounter Summary ---
Author Organization [employer] Address [address] [facility] 7t [place] [address] Care Team Providers Care Product Support Representative Name Role Phone Name, Boo FARLEY Primary Care Provider [phone] Ira Orozco PharmD Unavailable [phone] Reason for Visit * Reason Comments Follow-up Encounter Details Date Type Department Care Team ([facility] Contact Info) Description 09/09/2025 3:45 PM EST Office Visit [facility] MEDICINE [address] [place], [place] [phone] Name, MD Boo [address] [place] [address] Acute on chronic back pain (Primary Dx); [...] for Follow-up. Patient comes accompanied by her RAT BREEDER. She is complaining of low back pain. [...] Center 11/28/2025 9:00 AM Boo Hastings MD [facility] 12/12/2025 10:30 AM Ame Love RN [facility] 12/16/2025 10:15 AM Dangelo Pino [facility] ADL DEN [facility] 01/14/2026 10:30 AM Katlyn Vasquez OD VISION [facility] documented in this encounter Plan of Treatment Upcoming Encounters Date Type Department Care Team (Late st Contact Info) Description 11/28/2025 9:00 AM EST Office Visit [facility] MEDICINE [address] [place] [address] Boo Hastings MD [address] [place] [phone] 12/12/2025 10:30 AM EST Telemedicine [facility] MEDICINE [address] [place] [address] Ame Love RN 12/16/2025 10:15 AM EST Office Visit [facility] ADULT DENTAL [address] [place] [address] Dangelo Pino 01/14/2026 10:30 AM EDT Office Visit [facility] OPTOMETRY [address] [place] [address] Katlyn Vasquez, OD [address] [place] [address] documented as of this encounter Goals Goal [...] EST) Sodium 140 135 - 145 mmol/L [facility] Potassium 4.0 3.3 - 5.1 mmol/L [facility] Chloride 105 96 - 108 mmol/L [facility] Carbon Dioxide 27 22 - 29 mmol/L [facility] Anion Gap 12 12 - 20 [facility] Urea Nitrogen (BUN) 13 9 - 16 mg/dL [facility] Creatinine, Serum 0.60 0.5 - 1.4 mg/dL [facility] Estimated Glomerular Filt Rate >60 [facility] Comment:Chronic Kidney Disea se: Estimated GFR < 60 mL/min/1.69y5Htuiez Kidney Disease: Estimated GFR < 15 mL/min/1.73m2 Glucose 92 60 - 115 mg/dL [facility] Calcium 9.3 8.4 - 10.2 mg/dL [facility] Bilirubin, Total 0.3 0.0 - 1.0 mg/dL [facility] Aspartate Amino Transferase 20 5 - 31 U/L [facility] Alanine Aminotransferase 10 0 - 31 U/L [facility] Total Protein 7.3 6.5 - 8.0 g/dL [facility] Albumin Level 4.7 3.5 - 5.0 g/dL [facility] Alkaline Phosphatase 89 39 - 117 U/L [facility] Blood Venous blood specimen / Unknown 09/09/2025 4:15 PM EST 09/09/2025 5:54 PM EST Boo Hastings MD LAB BLOOD ORDERABLES Final Resul t [facility] [address] [place] [address] [phone] documented in this encounter Visit Diagnoses Diagnosis Acute on chronic back pain- Primary H/O lumbosacral spine surgery Rash Rash and other nonspecific skin eruption Vaccination refused by patient documented in this encounter Additional Health Concerns Assessment Noted Time PHQ-9 Depression Total Score: 10 025 10:47 AM EDT documented as of this encounter Care Teams Product Support Representative Relationship Specialty Start Date End Date Name, MD Boo [address] [place] [address] PCP - General Family Medicine 04/26/19 Ira Orozco, LesleyD [address] [place] [address] Pharmacist Internal Medicine 02/03/25 Janessa Fraga 11/23/24 documented as of this encounter
[2025-09-09 18:24] LABS: Alanine Aminotransferase 10 U/L (0-31); Albumin Level 4.7 g/dL (3.5-5.0); Alkaline Phosphatase 89 U/L (39-117); Anion Gap 12 (12-20); Aspartate Amino Transferase 20 U/L (5-31); Blood Urea Nitrogen 13 mg/dL (9-16); Calcium 9.3 mg/dL (8.4-10.2); Carbon Dioxide 27 mmol/L (22-29); Chloride 105 mmol/L (96-108); Estimated Glomerular Filt Rate > 60; Potassium 4.0 mmol/L (3.3-5.1); Sodium 140 mmol/L (135-145); Total Protein 7.3 g/dL (6.5-8.0)
--- OUTSIDE RECORDS SUMMARY | 2025-09-09 18:29 | XMS_ITS | Encounter Summary ---
Author Organization [employer] Address 75 [facility] 7t [place] [address] Care Team Providers Care Plant Breeder Name Role Phone Name, Boo FARLEY Primary Care Provider [phone] Ira Orozco PharmD Unavailable [phone] Reason for Visit * Reason Onset Date Comments appt/disconnected call 08/23/2024 Encounter Details Date Type Department Care Team ([facility] Contact Info) Description 08/23/2024 Telephone [facility] CHC ADULT DENTAL [address] [place] [address] Keegan Curtis [address] [place] [address] appt/disconnected call Social History Tobacco Use Types [...] treatment Placed patient on hold to contact [facility] for[facility]. Patient disconnected call. Appts offered by [facility] were 08/30 at 9 or 11am with [...] Upcoming Encounters Date Type Department Care Team ([facility] st Contact Info) Description 11/28/2025 9:00 AM EST Office Visit [facility] MEDICINE [address] [place] [address] [phone] Name, MD Boo [address] [place] [address], [place] [address] 12/12/2025 10:30 AM EST Telemedicine [facility] MEDICINE [address] [place] [address] Ame Love, RN 12/16/2025 10:15 AM EST Office Visit [facility] CHC ADULT DENTAL [address] [place] [address] Dangelo Pino 01/14/2026 10:30 AM EDT Office Visit [facility] OPTOMETRY [address] [place] [address] PedroTravis santosn, OD [address] [place] [address] documented as of this encounter Goals Goal [...] documented as of this encounter Care Teams Plant Breeder Relationship Specialty Start Date End Date Name, MD Boo [place], [place] PCP - General Family Medicine 04/26/19 Ira Oroczo PharmD [address] [place] [address] Pharmacist Internal Medicine 02/03/25 Janessa Fraga 11/23/24 documented as of this encounter
--- OUTSIDE RECORDS SUMMARY | 2025-09-09 18:29 | XMS_ITS | Encounter Summary ---
Author Organization [employer] Address 75 [facility] 7t [place] [address] Care Team Providers Care Cnc Machine Operator Name Role Phone Name, Boo FARLEY Primary Care Provider [phone] Ira Orozco PharmD Unavailable [phone] Reason for Visit * Reason Comments Med Refill Encounter Details Date Type Department Care Team ([facility] Contact Info) Description 02/11/2023 Refill [facility] CHC MED & PEDS [address] [place], [place] [phone] Name, MD Boo [address] [place] [address] Migraine without status migrainosus, not intractable, unspecified [...] [facility] Contact Info) Description 11/28/2025 9:00 AM EST Office Visit [facility] MEDICINE [address] [place] [address] Name, MD Boo [address] [place] [address] 12/12/2025 10:30 AM EST Telemedicine [facility] MEDICINE [address] [place] [address] Ame Love, RN 12/16/2025 10:15 AM EST Office Visit [facility] CHC ADULT DENTAL [address] [place] [address] Dangelo Pino 01/14/2026 10:30 AM EDT Office Visit [facility] OPTOMETRY [address] [place] [address] Pedro, Katlyn, OD [address] [place] [address] documented as of this encounter Visit Diagnoses Diagnosis Migraine without status migrainosus, not intractable, unspecified migraine type documented in this encounter Additional Health Concerns Assessment Noted Time PHQ-9 Depression Total Score: 6 10/25/20 22 4:10 PM EST documented as of this encounter Care Teams Cnc Machine Operator Relationship Specialty Start Date End Date Name, MD Boo [address] [place] [address] PCP - General Family Medicine 04/26/19 Ira Orozco PharmD [address] [place] [address] Pharmacist Internal Medicine 02/03/25 Janessa Fraga 11/23/24 documented as of this encounter
--- OUTSIDE RECORDS SUMMARY | 2025-09-09 18:29 | XMS_ITS | Encounter Summary ---
Author Organization [employer] Address [address] [facility] 7t [place] [address] Care Team Providers Care Lithographic Retoucher Apprentice Name Role Phone Name, Boo FARLEY Primary Care Provider [phone] Ira Orozco PharmD Unavailable [phone] Reason for Visit * Reason Onset Date Comments PA for tooth 9 08/21/2023 status on case back from lab? 08/21/2023 Encounter Details Date Type Department Care Team ([facility] st Contact Info) Description 08/21/2023 Telephone [facility] ADULT DENTAL [address] [place] [address] He Jimenez, DDS [address] [place] [address] PA for tooth 9; status on case [...] approved for tooth #8 for crown through [facility] but she is confused as towhy [...] Description 11/28/2025 9:00 AM EST Office Visit [facility] MEDICINE [address] [place] [phone] Name, MD Boo [address] [place] [address] 12/12/2025 10:30 AM EST Telemedicine [address] [address] Ame Love, GEM 12/16/2025 10:15 AM EST Office Visit [facility] CHC ADULT DENTAL [address] [place] [address] Dangelo Pino 01/14/2026 10:30 AM EDT Office Visit [facility] OPTOMETRY [address] [place] [address] Katlyn Vasquez, OD [address] [place] [address] documented as of this encounter Goals Goal [...] documented as of this encounter Care Teams Lithographic Retoucher Apprentice Relationship Specialty Start Date End Date Name, MD Boo [address] [place] [address] PCP - General Family Medicine 04/26/19 Ira Orozco, Nelida [address] [place] [address] Pharmacist Internal Medicine 02/03/25 Janessa Fraga 11/23/24 documented as of this encounter
--- OUTSIDE RECORDS SUMMARY | 2025-09-09 18:29 | XMS_ITS | Encounter Summary ---
Author Organization [employer] Address 75 [facility] 7t [place] [address] Care Team Providers Care Final Installer Inspector Name Role Phone Name, Boo FARLEY Primary Care Provider [phone] Ira Orozco PharmD Unavailable [phone] Encounter Details Date Type Department Care Team (Latest Contact Info) Description 09/09/2025 Travel Social History Tobacco Use Types Packs/Day [...] Description 11/28/2025 9:00 AM EST Office Visit [facility] MEDICINE [address] [place] [address] Name, MD Boo [address] [place] [address] 12/12/2025 10:30 AM EST Telemedicine [facility] MEDICINE [address] [place] [address] Ame Love, GEM 12/16/2025 10:15 AM EST Office Visit [facility] CHC ADULT DENTAL [address] [place] [address] Dangelo Pino 01/14/2026 10:30 AM EDT Office Visit [facility] OPTOMETRY [address] [place] [address] Katlyn Vasquez, OD [address] [place] [address] documented as of this encounter Goals Goal [...] documented as of this encounter Care Teams Final Installer Inspector Relationship Specialty Start Date End Date Name, MD Boo [address] [place] [address] PCP - General Family Medicine 04/26/19 Ira Orozco, LesleyD [address] [place] [address] Pharmacist Internal Medicine 02/03/25 Janessa [facility] 11/23/24 documented as of this encounter
--- OUTSIDE RECORDS SUMMARY | 2025-09-09 18:29 | XMS_ITS | Encounter Summary ---
Author Organization [employer] Address 75 [facility] 7t [place] [address] Care Team Providers Care It Business Systems Analyst Name Role Phone Name, Boo FARLEY Primary Care Provider [phone] Ira Orozco PharmD Unavailable [phone] Reason for Visit * Reason Comments Med Refill Encounter Details Date Type Department Care Team ([facility] Contact Info) Description 02/16/2023 Refill [facility] MEDICINE [address] [place], [place] [phone] Name, MD Boo [address] [place] [address] Social History Tobacco Use Types Packs/Day Years [...] Upcoming Encounters Date Type Department Care Team ([facility] Contact Info) Description 11/28/2025 9:00 AM EST Office Visit [facility] MEDICINE [address] [place] [address] Name, MD Boo [address] [place] [address] 12/12/2025 10:30 AM EST Telemedicine [facility] MEDICINE [address] [place] [address] Ame Love, RN 12/16/2025 10:15 AM EST Office Visit [facility] CHC ADULT DENTAL [address] [place] [address] Dangelo Pino 01/14/2026 10:30 AM EDT Office Visit [facility] OPTOMETRY [address] [place] [address] Katlyn Vasquez, OD [address] [place] [address] documented as of this encounter Visit Diagnoses Not on filedocumented in this encounter Additional Health Concerns Assessment Noted Time PHQ-9 Depression Total Score: 6 10/25/20 22 4:10 PM EST documented as of this encounter Care Teams It Business Systems Analyst Relationship Specialty Start Date End Date Name, MD Boo [address] [place] [address] PCP - General Family Medicine 04/26/19 Ira Orozco PharmD [address] [place] [address] Pharmacist Internal Medicine 02/03/25 Janessa Fraga 11/23/24 documented as of this encounter
--- OUTSIDE RECORDS SUMMARY | 2025-09-09 18:29 | XMS_ITS | Encounter Summary ---
Author Organization [employer] Address [address] [facility] [address] 7t [place] [address] Care Team Providers Care Student Success Coach Name Role Phone Name, Boo FARLEY Primary Care Provider [phone] Ira Orozco PharmD Unavailable [phone] Reason for Visit * Reason Onset Date Comments Nurse Triage 06/19/2024 Encounter Details Date Type Department Care Team ([facility] Contact Info) Description 06/19/2024 Telephone [facility] MEDICINE [address] [place], [place] [phone] Name, MD Boo [address] [place] [address] Nurse Triage Social History Tobacco Use Types [...] the past 12 months, has t he [employer], gas, oil or water company threatened to [...] cough. Pt is offered to come to [facility] today but, declines and is asking [...] Description 11/28/2025 9:00 AM EST Office Visit [facility] MEDICINE [address] [place] [address] Name, MD Boo [address] [place] [address] 12/12/2025 10:30 AM EST Telemedicine [facility] MEDICINE [address] [place] [address] Ame Love RN 12/16/2025 10:15 AM EST Office Visit [facility] CHC ADULT DENTAL [address] [place] [address] Dangelo Pino 01/14/2026 10:30 AM EDT Office Visit [facility] OPTOMETRY [address], [place] [phone] Katlny Vasquez, LESLEY [address] [place] [address] documented as of this encounter Goals Goal Patient Goal Type Associated Problems Recent Progress Patient-Stated? Author Blood Pressure < 140/90 Blood Pressure 168/68(11/04/2 025 3:40 PM EST) No Moe Johnson documented as of this encounter Visit Diagnoses Not on filedocumented in this encounter Additional Health Concerns Assessment Noted Time PHQ-9 Depression Total Score: 11 024 11:21 AM EDT documented as of this encounter Care Teams Student Success Coach Relationship Specialty Start Date End Date Name, MD Boo [address] [place] [address] PCP - General Family Medicine 04/26/19 Ira Orozco, LesleyD [address] [place] [address] Pharmacist Internal Medicine 02/03/25 Janessa Fraga 11/23/24 documented as of this encounter
--- OUTSIDE RECORDS SUMMARY | 2025-09-09 18:29 | XMS_ITS | Encounter Summary ---
Author Organization [employer] Address [address] [facility] [address] [place] [address] Care Team Providers Care Football Coach Name Role Phone Name, Boo FARLEY Primary Care Provider [phone] Ira Orozco PharmD Unavailable [phone] Reason for Visit * Reason Onset Date Comments PT-1 11/24/2023 Encounter Details Date Type Department Care Team ([facility] Contact Info) Description 11/24/2023 Telephone [facility] [address] [place], [place] [phone] Name, MD Boo [address] [place] [address] PT-1 Social History Tobacco Use Types Packs/Day [...] insurance . Which is [employer] due to [facility] not covering transportation . Please call daughter at [phone] * Telephone Encounter - Pippa Wilson - 11/24/2023 11:57 AM EST We are unable to process PT1 for [facility]. Pt would have to contact insurance to request transportation services. * Telephone Encounter - Andrew Emery - 11/24/2023 11:08 AM EST PT1 needed Date: 12/06/2023 Time 2:45 Visits: 3 Address: [address] [place], [place] Facility: [facility] Wheel Chair: no Fundraising Assistant Needed: no PT1 needed Date: 12/08/2023 Time: 11:00 Visits: 3 Address: [address] [place], [place] Facility: [facility] Wheel Chair: No Fundraising Assistant Needed: No PT1 needed Date: 12/12/2023 Time: 3:45 Visits: 3 Address: [address] [place] [address] Facility: [facility] Wheel Chair: no Fundraising Assistant Needed: no documented in this encounter Plan of Treatment Upcoming Encounters Date Type Department Care Team (Late st Contact Info) Description 11/28/2025 9:00 AM EST Office Visit [facility] [address] [place] [phone] NameBoo MD [address] [place] [address] 12/12/2025 10:30 AM EST Telemedicine [facility] [address] [place] [address] Ame Love RN 12/16/2025 10:15 AM EST Office Visit [facility] D[facility] [address] [place], [place] [phone] Dangelo Pino 01/14/2026 10:30 AM EDT Office Visit [facility] [address] [place], [place] [phone] Katlyn Vasquez, OD [address] [place] [address] documented as of this encounter Goals Goal [...] documented as of this encounter Care Teams Football Coach Relationship Specialty Start Date End Date Boo Hastings MD [address] [place] [id number] PCP - General Family Medicine 04/26/19 Ira Orozco PharmD [address] [place] [address] Pharmacist Internal Medicine 02/03/25 Janessa Fraga 11/23/24 documented as of this encounter
--- OUTSIDE RECORDS SUMMARY | 2025-09-09 18:29 | XMS_ITS | Encounter Summary ---
Author Organization [employer] Address [address] [facility] [place] [address] Care Team Providers Care Pharm Spec Name Role Phone Name, Boo FARLEY Primary Care Provider [phone] Ira Orozco PharmD Unavailable [phone] Reason for Visit * Reason Comments Med Refill Encounter Details Date Type Department Care Team ([facility] Contact Info) Description 05/13/2024 Refill [facility] [address] [place], [place] [phone] Name, MD Boo [address] [place] [address] Lumbar radiculopathy Social History Tobacco Use Types [...] the past 12 months, has t he [employer], gas, oil or water company threatened to [...] 9:00 AM EST Office Visit [facility] [address] [place] [address] Name, MD Boo [address] [place] [address] 12/12/2025 10:30 AM EST Telemedicine [facility] [address] [place] [address] Ame Love RN 12/16/2025 10:15 AM EST Office Visit [facility] DENT[facility] [address] [place] [address] Dangelo Pino 01/14/2026 10:30 AM EDT Office Visit [facility] [address] [place] [address] Katlyn Vasquez, LESLEY [address] [place] [address] documented as of this encounter Goals Goal [...] documented as of this encounter Care Teams Pharm Spec Relationship Specialty Start Date End Date Name, MD Boo [address] [place] [address] PCP - General Family Medicine 04/26/19 Ira Orozco PharmD [address] [place] [address] Pharmacist Internal Medicine 02/03/25 Janessa Fraga 11/23/24 documented as of this encounter
--- OUTSIDE RECORDS SUMMARY | 2025-09-09 18:29 | XMS_ITS | Encounter Summary ---
Author Organization [employer] Address [address] [facility] [address] [place] [address] Care Team Providers Care Manager Account Management Name Role Phone Name, Boo FARLEY Primary Care Provider [phone] Ira Orozco PharmD Unavailable [phone] Reason for Visit * Reason Comments Med Refill Encounter Details Date Type Department Care Team ([facility] Contact Info) Description 12/21/[address] [facility] [address] [place], [place] [phone] Penny Kang MD [address] [place] [address] Lumbar radiculopathy Social History Tobacco Use Types [...] Description 11/28/2025 9:00 AM EST Office Visit [facility] [address] [place] [address] Boo Hastings MD [address] [place] [address] 12/12/2025 10:[address] [facility] [address] [place] [address] Ame Love RN 12/16/2025 10:15 AM EST Office Visit [facility] ADULT DENTAL [address] [place] [address] Dangelo Pino 01/14/2026 10:30 AM EDT Office Visit [facility] OPT[facility] [address] [place] [address] Katlyn Vasquez, OD [address] [place] [address] documented as of this encounter Goals Goal [...] as of this encounter Care Teams Manager Account Management Relationship Specialty Start Date End Date Name, MD Boo [address] [place] [address] PCP - General Family Medicine 04/26/19 Ira Orozco, LesleyD [address] [place] [address] Pharmacist Internal Medicine 02/03/25 Janessa Fraga 11/23/24 documented as of this encounter
--- OUTSIDE RECORDS SUMMARY | 2025-09-09 18:29 | XMS_ITS | Encounter Summary ---
Author Organization [employer] Address [address] [facility] [address] [place] [address] Care Team Providers Care Electro Optics Engineer Name Role Phone Name, Boo FARLEY Primary Care Provider [phone] Ira Orozco PharmD Unavailable [phone] Reason for Visit * Reason Comments Med Refill Encounter Details Date Type Department Care Team ([facility] Contact Info) Description 11/21/[address] [facility] [address] [place], [place] [phone] Penny Kang MD [address] [place] [address] Lumbar radiculopathy Social History Tobacco Use Types [...] 11/28/2025 9:00 AM EST Office Visit [facility] [address] [place] [address] Boo Hastings MD [address] [place] [address] 12/12/2025 10:[address] [facility] [address] [place] [address] Ame Love RN 12/16/2025 10:15 AM EST Office Visit [facility] D[facility]AL [address] [place] [address] Dangelo Pino 01/14/2026 10:30 AM EDT Office Visit [facility] [address] [place] [address] Katlyn Vasquez, OD [address] [place] [address] documented as of this encounter Goals Goal [...] documented as of this encounter Care Teams Electro Optics Engineer Relationship Specialty Start Date End Date Name, MD Boo [address] [place] [address] PCP - General Family Medicine 04/26/19 Ira Orozco, LesleyD [address] [place] [address] Pharmacist Internal Medicine 02/03/25 Janessa Fraga 11/23/24 documented as of this encounter
--- OUTSIDE RECORDS SUMMARY | 2025-09-09 18:29 | XMS_ITS | Clinical Summary ---
Author Organization [employer] Address [address] [facility] 7[address] [place] [address] Care Team Providers Care Curb Setter Helper Name Role Phone Name, Boo FARLEY Primary Care Provider [phone] Ira Orozco PharmD Unavailable Allergies Active Allergy Reactions Criticality Noted Date [...] complication, without long-term current use of insulin ([facility]) Use to test blood sugar once times daily 100 each 12 01/07/20 25 2025 Active Blood Glucose Monitoring Suppl (FreeStyle [place] Lite) w/Device kitIndications:T ype 2 diabetes mellitus without complication, without long-term current use of insulin ([facility]) Use to test blood sugar once [...] OTC Active cholecalciferol (Vitamin D-3) 1.25 MG (35149 UT) capsule Take 50,000 Units by mouth [...] once daily 100 each 04/28/20 25 Active Multiple Vitamin (Multivitamin) tablet [...] NEEDED FOR MILD PAIN 30 tablet 09/04/20 Active clotrimazole-bet amethasone (Lotrisone) cream Apply topically 2 times daily for 28 days. 45 g 2 09/09/20 25 2024 Active lidocaine (Lidoderm) 5 % patchIndications :Chronic pain syndrome APPLY 1 PATCH TO SKIN. LEAVE ON FOR 12 HOURS, THEN OFF FOR 12 HOURS DIRECTED. 30 patch 5 04/15/20 25 2024 Discontinued(D uplicate order (will not trigger notification to Pharmacy)) Acetaminophen Extra Strength 500 MG tablet TAKE ONE TABLET BY MOUTH EVERY 8 HOURS NEEDED MILD PAIN 90 tablet 11 04/28/20 25 2024 Discontinued(T herapy completed) montelukast (Singulair) 10 MG tabletIndication s:Moderate persistent [...] order (will not trigger notification to Pharmacy)) ibuprofen 800 MG tabletIndication s:Lumbar radiculopathy TAKE 1 TABLET BY MOUTH EVERY 8 HOURS NEEDED FOR MILD PAIN 30 tablet 07/14/20 25 2024 Discontinued Lidocaine (HM Lidocaine Patch) 4 % patch Apply topically. 2024 Discontinued(R eorder (will not trigger notification to Pharmacy)) Active Problems Problem Noted Date Diagnosed Date H/O lumbosacral spine surgery 09/09/2025 Overview (09/09/2025): Patient had lumbar spine surgery on July 24. She had L4-5 anterior lumbar fusion with allograft bone. Long-term current use of opiate analgesic 2024 [...] different neurologist. Her eye doctor is at [facility]. Osteopenia 11/22/2007 Depressive disorder 06/18/2007 Overview (05/22/2023): F/u [facility] counseling Dr Jurado Assessment & [...] Acute exacerbation of COPD w ith asthma ([facility]) 09/10/2024 05/16/2025 Assessment & Plan (09/10/2024 1:54 [...] to Enterococcus 09/22/2023 09/22/2023 05/16/2025 COPD exacerbation ([facility]) 09/20/2023 05/16/2025 Assessment & Plan (09/20/2023 4:19 PM EST): -Rx augmenting and prednisone given 3 weeks of COPD exacerbation and continued ronchi and wheeze after treatment. 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 Paratracheal lymphadenopathy 01/17/2020 05/16/2025 Opiate dependence ([facility]/H[facility]) 01/15/2019 05/16/2025 Overview (05/22/2023): On suboxone Weight gain 08/22/2008 05/22/2023 Encounters Date Type Department Care Team Description 09/09/2025 3:45 PM EST Office Visit [facility] [place] [address] Boo Hastings MD Acute on chronic back pain (Primary Dx); H/O lumbosacral spine surgery; Rash; Vaccination refused by patient 09/09/2025 Travel 09/04/2025 11:30 AM EDT Clinical Support [facility] MED[facility] [address] [place] [address] Ame Love, GEM Long-term current use of opiate analgesic (Primary Dx) 09/04/2025 Telephone [facility] [address] [facility] [place] [address] Ame Love, RN [employer] AGreement renewed today; Abnormal UTOX 09/04/2025 Travel 09/04/2025 Refill [facility] [address] [place] [address] Boo Hastings MD Lumbar radiculopathy 08/27/2025 Refill [facility] [address] [place] [address] Boo Hastings MD Migraine without status migrainosus, not intractable, unspecified migraine type 08/26/2025 Telephone [facility] MED[facility]INE [address] [place] [address] Boo Hastings MD call back 08/26/2025 Refill [facility] [address] [place] [address] Boo Hastings MD Chronic right shoulder pain; Lumbar radiculopathy; Chronic pain syndrome 08/19/2025 Telephone [facility] [address] [facility] [place] [address] Boo Hastings MD Med Refill 08/15/2025 Refill [facility] MED[facility]INE [address] [place] [address] Boo Hastings MD 08/12/2025 Refill [facility] [address] [place] [address] Boo Hastings MD Moderate persistent asthma without complication 08/08/2025 Refill [facility] [address] [place] [address] Boo Hastings MD Lumbar radiculopathy 08/05/2025 Refill [facility] [address] [place] [address] Boo Hastings MD 07/29/2025 Telephone [facility] WALK-IN CENTER [address] [place] [address] Shelbi Solomon MA 07/29/2025 Telephone [facility] MED & PEDS [address] [place] [address] Boo Hastings MD DEC RECALL 07/29/2025 Patient Outreach [facility] [address] [place] [address] Boo Hastings MD Transition Of Care (Tcm) (HDF unscheduled) 07/21/2025 Telephone [facility] MED[facility]INE [address] [place] [address] Boo Hatsings MD Medication Question 07/21/2025 Telephone [facility]INE [address] [place] [address] Boo Hastings MD Durable Medical Equipment 07/14/2025 Telephone [facility]INE [address] [place] [address] Boo Hastings MD Med Refill 07/14/2025 Telephone [facility]INE [address] [place] [address] Boo Hastings MD Prior Authorization 07/14/2025 Telephone [facility] MED[facility]INE [address] [place] [address] Boo Hastings MD Med Refill 07/14/2025 Telephone [facility] MED[facility]INE [address] [place] [address] Boo Hastings MD Durable Medical Equipment 07/14/2025 Refill [facility]INE [address] [place] [address] Boo Hastings MD Lumbar radiculopathy 07/08/2025 Refill [facility] MED[facility]INE [address] [place] [address] Bushra Frey NP 07/08/2025 Refill [facility] MEDICINE [address] [place] [address] Boo Hastings MD Chronic right shoulder pain; Lumbar radiculopathy; Chronic pain syndrome 07/01/2025 Refill [facility] MEDICINE [address] [place] [address] Boo Hastings MD 06/26/2025 10:00 AM EDT Office Visit [facility] ADULT DENTAL [address] [place] [address] Keegan Curtis 06/24/2025 Telephone [facility] MEDICINE [address] [place] [address] Lexii Skinner MA OCT RECALLS 06/23/2025 Refill [facility] MEDICINE [address] [place] [address] Boo Hastings MD Migraine without status migrainosus, not intractable, unspecified migraine type 06/20/2025 Telephone [facility] MEDICINE [address] [place] [address] Boo Hastings MD Medication Question 06/13/2025 Telephone [facility] MEDICINE [address] [place] [address] Boo Hastings MD MRI SUPERVISOR hours 06/13/2025 Telephone [facility] MEDICINE [address] [place] [address] Boo Hastings MD Nurse Triage 06/12/2025 10:00 AM EDT Office Visit [facility] ADULT DENTAL [address] [place] [address] Dangelo Pino Dental calculus (Primary Dx) 06/11/2025 Refill [facility] MEDICINE [address] [place] [address] Boo Hastings MD Lumbar radiculopathy 06/10/2025 Refill [facility] MEDICINE [address] [place] [address] Boo Hastings MD Lumbar radiculopathy 06/10/2025 Refill [facility] MED[facility] [address] [place] [address] NameBoo MD Chronic right shoulder pain; Lumbar radiculopathy; Chronic pain syndrome 06/10/2025 Telephone [facility] MEDICINE [address] [place] [address] Boo Hastings MD Med Refill 06/10/2025 Telephone [facility] [address] [place] [address] NameBoo MD Durable Medical Equipment from Last 3 Months Immunizations Immunization Administration Dates Next Due Influenza injectable quadriv alent IIV4 with preservative 07/25/2023,01/01/2018,08/29/2016 Influenza injectable quadriv alent preservative free 09/28/2021,10/20/2020,11/26/2019 Influenza, IIV3, injectable 07/17/2015,1 ,07/17/2013,07/24,08/17/2011,09/19/2010,10/12/2009 ,08/22/2008,09/14/2007 Influenza, intradermal, quad rivalent, preservative free 07/17/2015,08/13/2014,07/17/2013,07/24,08/17/2011,10/12/2009,08/22/2008 ,09/14/2007 Novel [id number], preservative-free 10/12/2009 Pfizer Covid-19 Vaccine 12+ 02/03/2025,1 [...] Mass Index 30.05 09/09/2025 3:40 PM EST Plan of Treatment Upcoming Encounters Date Type Department Care Team (Late st Contact Info) Description 11/28/2025 9:00 AM EST Office Visit [facility] MEDICINE [address] [place] [address] Name, MD Boo [address] [place] [address] 12/12/2025 10:30 AM EST Telemedicine [facility] MEDICINE [address] [place] [address] Ame Love RN 12/16/2025 10:15 AM EST Office Visit [facility] CHC ADULT DENTAL [address] [place] [address] Dangelo Pino 01/14/2026 10:30 AM EDT Office Visit [facility] OPTOMETRY [address] [place] [address] Pedro, Katlyn, OD [address] [place] [address] Health Maintenance Due Date Last Done Comments [...] 05/16/2025 Dental X-Ray: Bitewings 06/13/2026 06/12/2025, 05/29 HPV/Cotest 09/04/2026 07/25/2017 Pap Smear 09/04/2026 09/04/2023 Tobacco Screening 09/09/2026 09/09/2025 Eye Exam 01/13/2027 01/13/2025, 01/04, 01/13/2025, Additional [...] 025 3:40 PM EST) No Moe Johnson Procedures Procedure Name Priority Date/Time Associated Diagnosis Comments COMPREHENSIVE METABOLIC PANEL Routine 09/09/2025 4:15 PM EST Acute on chronic back pain H/O lumbosacral spine surgery POCT COY-14 URINE DRUG SCREEN Routine 09/04/2025 [...] long-term current use of insulin ([facility]) ALBUMIN, RANDOM URINE W/CREATININE Routine 02/06/2025 9:20 AM EDT LIPID PANEL, STANDARD Routine 02/06/2025 9:18 AM EDT INTRAORAL - COMPLETE SERIES OF RADIOGRAPHIC IMAGES Routine 05/29/2024 1:00 PM EDT Dental calculus Secondary dental caries associated with failed or defective dental zoroastrian HM MAMMOGRAPHY Routine 04/08/2024 PAP SMEAR Routine 09/04/2023 11:17 AM EDT HM COLONOSCOPY Routine 08/02/2022 10:14 AM EDT ZZZ HISTORICAL HPV MRNA E6/E7 Routine 07/25/2017 9:30 AM EDT from Last 3 Months or Most Recently Relevant to Health Maintenance Results * Comprehensive Metabolic Panel (09/09/2025 4:15 PM EST) Sodium 140 135 - 145 mmol/L [facility] Potassium 4.0 3.3 - 5.1 mmol/L [facility] Chloride 105 96 - 108 mmol/L [facility] Carbon Dioxide 27 22 - 29 mmol/L [facility] Anion Gap 12 12 - 20 [facility] Urea Nitrogen (BUN) 13 9 - 16 mg/dL [facility] Creatinine, Serum 0.60 0.5 - 1.4 mg/dL [facility] Estimated Glomerular Filt Rate >60 [facility] Comment:Chronic Kidney Disea se: Estimated GFR < 60 mL/min/1.00c2Ztkabn Kidney Disease: Estimated GFR < 15 mL/min/1.73m2 Glucose 92 60 - 115 mg/dL [facility] Calcium 9.3 8.4 - 10.2 mg/dL [facility] Bilirubin, Total 0.3 0.0 - 1.0 mg/dL [facility] Aspartate Amino Transferase 20 5 - 31 U/L [facility] Alanine Aminotransferase 10 0 - 31 U/L [facility] Total Protein 7.3 6.5 - 8.0 g/dL [facility] Albumin Level 4.7 3.5 - 5.0 g/dL [facility] Alkaline Phosphatase 89 39 - 117 U/L [facility] Blood Venous blood specimen / Unknown 09/09/2025 4:15 PM EST 09/09/2025 5:54 PM EST us Boo Hastings MD LAB BLOOD ORDERABLES Final Resul t [facility] [address] [place] [phone] * (ABNORMAL) POCT COY-14 Urine Drug Screen [...] Negative ng/mL Oxycodone Screen, Urine Positive(A) Negative Comment:[employer] pt on Percocet Phencyclidine (PCP), Urine Negative Negative Propoxyphene, Urine Negative Negative Fentanyl, Urine Negative Negative Urine Urine specimen obtained by clean catch procedure / Unknown 09/04/2025 11:17 AM EDT Ame John RN - 09/04/2025 11:17 AM EDT UTOX cup Lot#[id number] Exp. 08/12/26 Internal Pass Control us Boo Hastings MD POINT OF CARE TEST ENTER/EDIT OR DERABLES Final Result * Drug Monitoring, Methadone Metabolite, Screen, Urine (09/04/2025 11:00 AM EDT) Methadone Screen, Urine Not Detected Not Detect ng/mL [facility] Comment:Methadone cut-off is 300 ng/mL.Positive results are unconfirmed and should not be used fornon-medical purposes. Urine (Urine, Random) 09/04/2025 11:00 AM EDT 09/04/2025 5:11 PM EDT us Boo Hastings MD LAB URINE ORDERABLES Final Resul t Performing Organization Address [facility]/ZIP Co de Phone Number [facility] [address] [place] [phone] * POCT HGB A1C (05/16/2025 10:18 AM EDT) Hemoglobin A1C 5.0 4.0 - 5.7 % QC Media Lot # [id number] Lot# Expiration Date Blood 05/16/2025 10:1 8 AM EDT us Boo Hastings MD POINT OF CARE TEST ENTER/EDIT OR DERABLES Final Result * Albumin, Random Urine W/Creatinine (02/06/2025 9:20 AM EDT) Creatinine, Urine 73.35 mg/dL [facility] Microalbumin Urine 10.0 mg/L [facility] Microalbum Creatinine Ratio Ur 13.6 <30 ug/mg cr [facility] Comment:Albumin/Creatinine R atio Reference Ranges: Normal: < 30 ug/mg creatinine Microalbuminuria: 30 - 300 ug/mg creatinineClinical Albuminuria: > 300 ug/mg creatinine 02/06/2025 9:20 AM EDT 02/06/2025 2:08 PM EDT us Boo Hastings MD LAB URINE ORDERABLES Final Resul t Performing Organization Address [facility]/ZIP Co de Phone Number [facility] [address] [place] [phone] * Lipid Panel, Standard (02/06/2025 9:18 AM EDT) Triglycerides 52 <150 mg/dL [facility] Comment:Desirable Triglyceri de: less than 150 mg/dLBorderline High Triglyceride 150-199 mg/dLHigh Triglyceride: 200-499 mg/dLVery High Triglyceride: greater than or equal to 5OO mg/dL Cholesterol 147 <200 mg/dL [facility] Comment:Desirable Cholestero l: less than 200 mg/dLBorderline High Cholesterol: 200-239 mg/dLHigh Cholesterol: greater than 239 mg/dL LDL Cholesterol Calculated 79 <100 mg/dL [facility] Comment:Desirable LDL: less than 100 mg/dLNear Optimal/Above Optimal LDL: 110- 129 mg/dLBorderline High LDL: 130-159 mg/dLHigh LDL: 160-189 mg/dLVery High LDL: greater than or equal to 190 mg/dL HDL Cholesterol 58 >40 mg/dL [facility] Comment:Desirable HDL: great er than 40 mg/dL Note: This HDL assay may give artificially low results in patients with liver disease. 02/06/2025 9:18 AM EDT 02/06/2025 2:04 PM EDT us Boo Hastings MD LAB BLOOD ORDERABLES Final Resul t [facility] [address] [place] [address] [phone] * Mammography (04/08/2024) Mammogram BIRADS 1 Normal, Abnormal, BIRADS 1 , BIRADS 2 Anatomical Region Laterality Modality Other us Boo Hastings MD HEALTH MAINTENANCE Final Result * Pap Smear (09/04/2023 11:17 AM EDT) 09/04/2023 11:1 7 AM EDT 09/05/2023 9:00 AM EDT Narrative [facility] - 09/21/2023 11:07 AM EST ----- ------- Name: Juana Lord Age/Sex: 63/F : 1960 Unit#: [id number] Attend Dr: SHANTELLE DUNAWAY [facility] Re09/04/23 Status: DEP REF Location: [facility] Disch: ----- ------- SPEC : [id number] RECD: 09/05/23 STATUS: GROVER IVERSON NUM: [id number] JESUS: 09/04/23 [facility] DR: SHANTELLE DUNAWAY [facility] ENTERED: 09/05/23 SP TYPE: Pap Smr OTHR DR: ORDERED: Pap Smear Interpretation Satisfactory for evaluation. Atrophic. Negative for intraepithelial lesion or malignancy. HPV unable to be performed due to error at reference lab. Clinical Information LMP: Unknown date Previous PAP test: Unknown date/findings Material Received ThinPrep-Cervical ----- ------- Signed (signature on file) YEIMI Villanueva ([facility]) 09/21/23 1107 ----- ------- END OF REPORT Shantelle ALFONSO LAB CYTOLOGY ORDERABLES F inal Result [facility] [address] [place] [phone] * Hm Colonoscopy (08/02/2022 10:14 AM EDT) Colonoscopy Normal Normal Narrative Anita Marroquin - 08/02/2022 10:14 AM EDT Recommended 5 year follow up Historical Provider MD HEALTH MAINTENANCE Edited Result - Final * HPV mRNA E6/E7 (07/25/2017 9:30 AM EDT) HPV mRNA E6/E7 Not Detected NOT DETECTED [facility] Comment: This test was performed using the APTIMA(R) HPV Assay ([employer] This assay detects E6/E7 viral messenger RNA (mRNA) from 14 high-risk HPV types (16,18,31,33,35,39,45,51, 52,56,58,59,66,68). For additional information please refer to: http://education.[employer].VFA/faq/CYD112z0 (This link is being provided for informational/ educational purposes only.) Test Performed by [facility], [address] [place] [address] John Aaron M.D., Ph.D., Director of Laboratories , [place] [id number] Please note: Effective 07/18/2016, HPV testing will be performed using [employer]'s APTIMA test which targets mRNA. Detecting mRNA instead of DNA, as in older methods, offers significant improvements in specificity. 07/25/2017 9:30 AM EDT Shantelle ALFONSO HISTORICAL/NON ORDERABLE LABS Final Result [facility] [address] from Last 3 Months or Most Recently Relevant to Health Maintenance Insurance [facility] OPT[employer] (HMO D-SNP) [facility] STANDARD DENTAL [facility] Care Teams Curb Setter Helper Relationship Specialty Start Date End Date Name, MD Boo [address] [place] [address] PCP - General Family Medicine 04/26/19 Ira Orozco, Nelida [address] [place] [address] Pharmacist Internal Medicine 02/03/25 Janessa Fraga 11/23/24
--- OUTSIDE RECORDS SUMMARY | 2025-09-09 18:29 | XMS_ITS | Encounter Summary ---
Author Organization [employer] Address [address] [facility] 7t [place] [address] Care Team Providers Care Machine Compositor Name Role Phone Name, Boo FARLEY Primary Care Provider [phone] Ira Orozco PharmD Unavailable [phone] Encounter Details Date Type Department Care Team ([facility] Contact Info) Description 12/29/2022 Telephone [facility] [address] [place] [phone] Name, MD Boo [address] [place] [phone] Social History Tobacco Use Types Packs/Day Years [...] Upcoming Encounters Date Type Department Care Team ([facility] Contact Info) Description 11/28/2025 9:00 AM EST Office Visit [facility] [address] [place] [address] [place] [address] Name, MD Boo [address] [place] [address] 12/12/2025 10:30 AM EST Telemedicine [facility] [address] [place] [address] Ame Love, RN 12/16/2025 10:15 AM EST Office Visit [facility] CHC ADULT DENTAL [address] [place] [address] Dangelo Pino 01/14/2026 10:30 AM EDT Office Visit [facility] OPTOMETRY [address] [place] [address] Katlyn Vasquez, OD [address] [place] [address] documented as of this encounter Visit Diagnoses Not on filedocumented in this encounter Additional Health Concerns Assessment Noted Time PHQ-9 Depression Total Score: 6 10/25/20 22 4:10 PM EST documented as of this encounter Care Teams Machine Compositor Relationship Specialty Start Date End Date Name, MD Boo [address] [place] [address] PCP - General Family Medicine 04/26/19 Ira Orozco PharmD [address] [place] [phone] Pharmacist Internal Medicine 02/03/25 Janessa Fraga 11/23/24 documented as of this encounter
--- OUTSIDE RECORDS SUMMARY | 2025-09-09 18:29 | XMS_ITS | Encounter Summary ---
Author Organization [employer] Address [address] [facility] [address] [place] [address] Care Team Providers Care Rn Emergency Room Name Role Phone Name, Boo FARLEY Primary Care Provider [phone] Ira Orozco PharmD Unavailable [phone] Reason for Visit * Reason Onset Date Comments Med Refill 10/24/2023 Encounter Details Date Type Department Care Team ([facility] Contact Info) Description 10/24/2023 Telephone [facility] MEDICINE [address] [place], [place] [phone] Name, MD Boo [address] [place] [address] Med Refill Social History Tobacco Use Types [...] refill for Percocet 5/325mg was sent to [facility] pharmacy on 10/24/23. Per [facility] check 10/26/23, pt filled a 28 day supply on 10/24/23. * Telephone Encounter - Mike Yang - 10/24/2023 8:17 AM EST Tc from pt requesting med refill on oxyCODONE-acetaminophen (Percocet) 5-325 MG tablet Please sent to [facility] - [place], [place] - [address] documented in this encounter Plan of Treatment Upcoming Encounters Date Type Department Care Team (Late st Contact Info) Description 11/28/2025 9:00 AM EST Office Visit [facility] MED[facility]INE [address] [place] [phone] Name, MD Boo [address] [place] [phone] 12/12/2025 10:30 AM EST Telemedicine [facility] MED[facility]INE [address] [place] [phone] Ame Love RN 12/16/2025 10:15 AM EST Office Visit [facility] CHC ADULT DENTAL [address] [facility] [place] [address] Dangelo Pino 01/14/2026 10:30 AM EDT Office Visit [facility] OPTOMETRY [address] [place] [address] Katlyn Vasquez, OD [address] [place] [address] documented as of this encounter Goals Goal [...] documented as of this encounter Care Teams Rn Emergency Room Relationship Specialty Start Date End Date Name, MD Boo [address] [place] [address] PCP - General Family Medicine 04/26/19 Ira Orozco PharmD [address] [place] [address] Pharmacist Internal Medicine 02/03/25 Janessa Fraga 11/23/24 documented as of this encounter
--- OUTSIDE RECORDS SUMMARY | 2025-09-09 18:29 | XMS_ITS | Encounter Summary ---
Author Organization [employer] Address 75 [facility] 7t [place] [address] Care Team Providers Care Bicycle Repairman Name Role Phone Name, Boo FARLEY Primary Care Provider Ira Orozco PharmD Unavailable [phone] Encounter Details Date Type Department Care Team ([facility] Contact Info) Description 02/13/2023 Orders Only [facility] MEDICINE [address] [place] [address] [phone] Miracle Prescott LPN Social History Tobacco Use [...] Upcoming Encounters Date Type Department Care Team ([facility] Contact Info) Description 11/28/2025 9:00 AM EST Office Visit [facility] MEDICINE [address] [place] [address] [phone] Name, MD Boo [address] [place] [address] 12/12/2025 10:30 AM EST Telemedicine [facility] MEDICINE 230 [place] [address] Ame Love, RN 12/16/2025 10:15 AM EST Office Visit [facility] CHC ADULT DENTAL [address] [place] [address] Dangelo Pino 01/14/2026 10:30 AM EDT Office Visit [facility] OPTOMETRY [address] [place] [address] PedroTravis santosn, OD 230 [place] [address] documented as of this encounter Visit Diagnoses Not on filedocumented in this encounter Additional Health Concerns Assessment Noted Time PHQ-9 Depression Total Score: 6 10/25/20 22 4:10 PM EST documented as of this encounter Care Teams Bicycle Repairman Relationship Specialty Start Date End Date Name, MD Boo [address] [place] [address] PCP - General Family Medicine 04/26/19 Ira Orozco PharmD [address] [place] [address] Pharmacist Internal Medicine 02/03/25 Janessa Fraga 11/23/24 documented as of this encounter
--- OUTSIDE RECORDS SUMMARY | 2025-09-09 18:30 | XMS_ITS | Encounter Summary ---
Author Organization [employer] Address 75 [facility] 7t [place] [address] Care Team Providers Care Ict Help Desk Technician Name Role Phone Name, Boo FARLEY Primary Care Provider [phone] Ira Orozco PharmD Unavailable [phone] Encounter Details Date Type Department Care Team (Latest Contact Info) Description 06/08/2022 Abstract [facility] CONVERSIONS Dental, Provider, DDS Social History [...] Description 11/28/2025 9:00 AM EST Office Visit [facility] MEDICINE [address] [place] [address] Name, MD Boo [address] [place] [address] 12/12/2025 10:30 AM EST Telemedicine [facility] MEDICINE [address] [place] [address] Ame Love, GEM 12/16/2025 10:15 AM EST Office Visit [facility] CHC ADULT DENTAL [address] [place] [address] Dangelo Pino 01/14/2026 10:30 AM EDT Office Visit [facility] OPTOMETRY [address] [place] [address] Katlyn Vasquez, OD 230 [place] [address] documented as of this encounter Visit Diagnoses Not on filedocumented in this encounter Care Teams Ict Help Desk Technician Relationship Specialty Start Date End Date Name, MD Boo 230 [place] [address] PCP - General Family Medicine 04/26/19 Ira Orozco, Nelida [address] [place] [address] Pharmacist Internal Medicine 02/03/25 Janessa Fraga 11/23/24 documented as of this encounter
--- OUTSIDE RECORDS SUMMARY | 2025-09-09 18:30 | XMS_ITS | Encounter Summary ---
Author Organization [employer] Address 75 [facility] 7t [place] [address] Care Team Providers Care Chart Writer Name Role Phone Name, Boo FARLEY Primary Care Provider [phone] Ira Orozco PharmD Unavailable [phone] Reason for Visit * Reason Comments Med Refill Encounter Details Date Type Department Care Team ([facility] Contact Info) Description 01/19/2024 Refill [facility] MEDICINE 230 [place], [place] [phone] Name, MD Boo 230 [place] [address] Lumbar radiculopathy; History of total bilateral knee [...] 9:00 AM EST Office Visit [facility] MEDICINE [address] [place] [address] Name, MD Boo [address] [place] [address] 12/12/2025 10:30 AM EST Telemedicine [facility] MEDICINE [address] [place] [address] Ame Love RN 12/16/2025 10:15 AM EST Office Visit [facility] CHC ADULT DENTAL [address] [place] [address] Dangelo Pino 01/14/2026 10:30 AM EDT Office Visit [facility] OPTOMETRY [address] [place] [address] Katlyn Vasquez, LESLEY 230 [place] [address] documented as of this encounter Goals Goal [...] documented as of this encounter Care Teams Chart Writer Relationship Specialty Start Date End Date Name, MD Boo 230 [place] [address] PCP - General Family Medicine 04/26/19 Ira Orozco PharmD 230 [place] [address] Pharmacist Internal Medicine 02/03/25 Janessa Fraga 11/23/24 documented as of this encounter
--- OUTSIDE RECORDS SUMMARY | 2025-09-09 18:30 | XMS_ITS | Encounter Summary ---
Author Organization [employer] Address 75 [facility] 7t [place] [address] Care Team Providers Care Real Estate Director Name Role Phone Name, Boo FARLEY Primary Care Provider Ira Orozco PharmD Unavailable [phone] Encounter Details Date Type Department Care Team (Latest Contact Info) Description 01/01/2020 Abstract [facility] CONVERSIONS Dental, Provider, DDS Social History [...] Description 11/28/2025 9:00 AM EST Office Visit [facility] MEDICINE 230 [place] [address] Name, MD Boo 230 [place] [address] 12/12/2025 10:30 AM EST Telemedicine [facility] MEDICINE 230 [place] [address] Ame Love, GEM 12/16/2025 10:15 AM EST Office Visit [facility] CHC ADULT DENTAL [address] [place] [address] Dangelo Pino 01/14/2026 10:30 AM EDT Office Visit [facility] OPTOMETRY 267 [place] [address] Katlyn Vasquez, OD 230 [place] [address] documented as of this encounter Visit Diagnoses Not on filedocumented in this encounter Care Teams Real Estate Director Relationship Specialty Start Date End Date Name, MD Boo 230 [place] [address] PCP - General Family Medicine 04/26/19 Ira Orozco, LesleyD 230 [place] [address] Pharmacist Internal Medicine 02/03/25 Janessa Fraga 11/23/24 documented as of this encounter
--- OUTSIDE RECORDS SUMMARY | 2025-09-09 18:30 | XMS_ITS | Encounter Summary ---
Author Organization [employer] Address [address] [facility] [address] 7t [place] [address] Care Team Providers Care Wheel Molder Name Role Phone Name, Boo FARLEY Primary Care Provider [phone] Ira Orozco PharmD Unavailable [phone] Reason for Visit * Reason Onset Date Comments Med Refill 01/14/2025 Encounter Details Date Type Department Care Team ([facility] Contact Info) Description 01/14/2025 Telephone [facility] MEDICINE 230 [place], [place] [phone] Name, MD Boo 230 [place] [address] Med Refill Social History Tobacco Use Types [...] 11:19 AM EDT Medication was sent to [facility] today 01/14/25. * Telephone Encounter - Christen Hurtado - 01/14/2025 11:12 AM EDT TC from pt requesting medication refill. Medications needing refill : pregabalin (Lyrica) 150 MG capsule ibuprofen (IBU) 800 MG tablet To be sent to: [facility] documented in this encounter Plan of Treatment Upcoming Encounters Date Type Department Care Team (Late st Contact Info) Description 11/28/2025 9:00 AM EST Office Visit [facility] MEDICINE [address] [place] [address] Name, MD Boo 230 [place] [address] 12/12/2025 10:30 AM EST Telemedicine [facility] MEDICINE 230 [place] [address] Ame Love, RN 12/16/2025 10:15 AM EST Office Visit [facility] CHC ADULT DENTAL [address] [place] [address] Dangelo Pino 01/14/2026 10:30 AM EDT Office Visit [facility] OPTOMETRY [address] [place] [address] Katlyn Vasquez, OD 230 [place] [address] documented as of this encounter Goals Goal [...] documented as of this encounter Care Teams Wheel Molder Relationship Specialty Start Date End Date Name, [place] [address] PCP - General Family Medicine 04/26/19 Ira Orozco PharmD [address] [place] [address] Pharmacist Internal Medicine 02/03/25 Janessa Fraga 11/23/24 documented as of this encounter
--- OUTSIDE RECORDS SUMMARY | 2025-09-09 18:30 | XMS_ITS | Encounter Summary ---
Author Organization [employer] Address [address] [facility] [address] 7t [place] [address] Care Team Providers Care Straight Line Edger Name Role Phone Name, Boo FARLEY Primary Care Provider Ira Orozco PharmD Unavailable [phone] Encounter Details Date Type Department Care Team ([facility] Contact Info) Description 01/17/2025 Telephone [facility] MEDICINE 230 [place], [place] [phone] Name, MD Boo 230 [place] [address] Social History Tobacco Use Types Packs/Day Years [...] Description 11/28/2025 9:00 AM EST Office Visit [facility] MEDICINE 230 [place] [address] Name, MD Boo 230 [place] [address] 12/12/2025 10:30 AM EST Telemedicine [facility] MEDICINE 230 [place] [address] Ame Love, RN 12/16/2025 10:15 AM EST Office Visit [facility] CHC ADULT DENTAL [address] [place] [address] Dangelo Pino 01/14/2026 10:30 AM EDT Office Visit [facility] OPTOMETRY [address] [place] [address] Katlyn Vasquez, LESLEY 230 [place] [address] documented as of this encounter Goals Goal [...] documented as of this encounter Care Teams Straight Line Edger Relationship Specialty Start Date End Date Name, MD Boo 230 [place] [address] PCP - General Family Medicine 04/26/19 Ira Orozco PharmD 230 [place] [address] Pharmacist Internal Medicine 02/03/25 Janessa Fraga 11/23/24 documented as of this encounter
--- OUTSIDE RECORDS SUMMARY | 2025-09-09 18:30 | XMS_ITS | Encounter Summary ---
Author Organization [employer] Address [address] [facility] [address] 7t [place] [address] Care Team Providers Care Ore Crushing Dust Collector Name Role Phone Name, Boo FARLEY Primary Care Provider [phone] Ira Orozco PharmD Unavailable [phone] Reason for Visit * Reason Onset Date Comments Med Refill 01/19/2024 Encounter Details Date Type Department Care Team ([facility] Contact Info) Description 01/19/2024 Telephone [facility] MEDICINE 230 [place], [place] [phone] Name, MD Boo 230 [place] [address] Med Refill Social History Tobacco Use Types [...] 9:01 AM EDT Medication was sent to [facility] on 01/16/24. * Telephone Encounter - Mike Yang - 01/19/2024 8:52 AM EDT TC from pt requesting medication refill. Medications needing refill : IBU 800 MG tablet To be sent to: [facility] [place] - [address] documented in this encounter Plan of Treatment Upcoming Encounters Date Type Department Care Team (Late st Contact Info) Description 11/28/2025 9:00 AM EST Office Visit [facility] MEDICINE [address] [place] [address] Name, MD Boo [address] [place] [address] 12/12/2025 10:30 AM EST Telemedicine [facility] MEDICINE [address] [place] [address] Ame Love RN 12/16/2025 10:15 AM EST Office Visit [facility] ADULT DENTAL [address] [place] [address] Dangelo Pino 01/14/2026 10:30 AM EDT Office Visit [facility] OPTOMETRY [address] [place] [address] Katlyn Vasquez, OD 230 [place] [address] documented as of this encounter Goals Goal [...] documented as of this encounter Care Teams Ore Crushing Dust Collector Relationship Specialty Start Date End Date Name, MD Boo 230 [place] [address] PCP - General Family Medicine 04/26/19 Ira Orozco, Nelida 230 [place] [address] Pharmacist Internal Medicine 02/03/25 Janessa Fraga 11/23/24 documented as of this encounter
--- OUTSIDE RECORDS SUMMARY | 2025-09-09 18:30 | XMS_ITS | Encounter Summary ---
Author Organization [employer] Address 75 [facility] 7t [place] [address] Care Team Providers Care Product Development Carpenter Name Role Phone Name, Boo FARLEY Primary Care Provider Ira Orozco PharmD Unavailable [phone] Reason for Visit * Reason Comments Med Refill Encounter Details Date Type Department Care Team ([facility] Contact Info) Description 04/17/2023 Refill [facility] 230 [place], [place] [phone] Nazia Curiel FNP Acute pain of right [...] Upcoming Encounters Date Type Department Care Team ([facility] Contact Info) Description 11/28/2025 9:00 AM EST Office Visit [facility] MEDICINE 230 [place] [address] Name, MD Boo 230 [place] [address] 12/12/2025 10:30 AM EST Telemedicine [facility] MEDICINE 230 [place] [address] Ame Love, RN 12/16/2025 10:15 AM EST Office Visit [facility] CHC ADULT DENTAL [address] [place] [address] Dangelo Pino 01/14/2026 10:30 AM EDT Office Visit [facility] OPTOMETRY [address] [place] [address] Katlyn Vasquez, OD 230 [place] [address] documented as of this encounter Visit Diagnoses Diagnosis Acute pain of right shoulder documented in this encounter Additional Health Concerns Assessment Noted Time PHQ-9 Depression Total Score: 6 10/25/20 22 4:10 PM EST documented as of this encounter Care Teams Product Development Carpenter Relationship Specialty Start Date End Date Name, MD Boo 230 [place] [address] PCP - General Family Medicine 04/26/19 Ira Orozco PharmD [address] [place] [address] Pharmacist Internal Medicine 02/03/25 Janessa Fraga 11/23/24 documented as of this encounter
--- OUTSIDE RECORDS SUMMARY | 2025-09-09 18:30 | XMS_ITS | Encounter Summary ---
Author Organization [employer] Address 75 [facility] 7t [place] [address] Care Team Providers Care Account Administrator Name Role Phone Name, Boo FARLEY Primary Care Provider [phone] Ira Orozco PharmD Unavailable [phone] Reason for Visit * Reason Comments Med Refill Encounter Details Date Type Department Care Team ([facility] Contact Info) Description 02/22/2023 Refill [facility] MEDICINE 230 [place], [place] [phone] Name, MD Boo 230 [place] [address] Social History Tobacco Use Types Packs/Day Years [...] Upcoming Encounters Date Type Department Care Team ([facility] Contact Info) Description 11/28/2025 9:00 AM EST Office Visit [facility] MEDICINE 230 [place] [address] Name, MD Boo [address] [place] [address] 12/12/2025 10:30 AM EST Telemedicine [facility] MEDICINE [address] [place] [address] Ame Love, RN 12/16/2025 10:15 AM EST Office Visit [facility] CHC ADULT DENTAL [address] [place] [address] Dangelo Pino 01/14/2026 10:30 AM EDT Office Visit [facility] OPTOMETRY [address] [place] [address] Katlyn Vasquez, OD 230 [place] [address] documented as of this encounter Visit Diagnoses Not on filedocumented in this encounter Additional Health Concerns Assessment Noted Time PHQ-9 Depression Total Score: 6 10/25/20 22 4:10 PM EST documented as of this encounter Care Teams Account Administrator Relationship Specialty Start Date End Date Name, MD Boo [address] [place] [address] PCP - General Family Medicine 04/26/19 Ira Orozco PharmD [address] [place] [address] Pharmacist Internal Medicine 02/03/25 Janessa Fraga 11/23/24 documented as of this encounter
--- OUTSIDE RECORDS SUMMARY | 2025-09-09 18:30 | XMS_ITS | Encounter Summary ---
Author Organization [employer] Address 75 [facility] 7t [place] [address] Care Team Providers Care High Lift Driver Name Role Phone Name, Boo FARLEY Primary Care Provider [phone] Ira Orozco PharmD Unavailable [phone] Reason for Visit * Reason Comments Med Refill Encounter Details Date Type Department Care Team ([facility] Contact Info) Description 05/01/2023 Refill [facility] MEDICINE 230 [place], [place] [phone] Name, MD Boo 230 [place] [address] Moderate persistent asthma without complication Social History [...] Upcoming Encounters Date Type Department Care Team ([facility] Contact Info) Description 11/28/2025 9:00 AM EST Office Visit [facility] MEDICINE 230 [place] [address] Name, MD Boo 230 [place] [address] 12/12/2025 10:30 AM EST Telemedicine [facility] MEDICINE 230 [place] [address] Ame Love, RN 12/16/2025 10:15 AM EST Office Visit [facility] CHC ADULT DENTAL [address] [place] [address] Dangelo Pino 01/14/2026 10:30 AM EDT Office Visit [facility] OPTOMETRY 267 [place] [address] Katlyn Vasquez, OD 230 [place] [address] documented as of this encounter Visit Diagnoses Diagnosis Moderate persistent asthma without complication documented in this encounter Additional Health Concerns Assessment Noted Time PHQ-9 Depression Total Score: 6 10/25/20 22 4:10 PM EST documented as of this encounter Care Teams High Lift Driver Relationship Specialty Start Date End Date Name, MD Boo [address] [place] [address] PCP - General Family Medicine 04/26/19 Ira Orozco PharmD [address] [place] [address] Pharmacist Internal Medicine 02/03/25 Janessa Fraga 11/23/24 documented as of this encounter
--- OUTSIDE RECORDS SUMMARY | 2025-09-09 18:30 | XMS_ITS | Encounter Summary ---
Author Organization [employer] Address 75 [facility] 7t [place] [address] Care Team Providers Care Materials Clerk Name Role Phone Name, Boo FARLEY Primary Care Provider [phone] Ira Orozco PharmD Unavailable [phone] Encounter Details Date Type Department Care Team ([facility] Contact Info) Description 04/18/2023 Abstract [facility] MEDICINE [address] [place] [address] Name, MD Boo [address] [place] [address] Social History Tobacco Use Types Packs/Day Years [...] Upcoming Encounters Date Type Department Care Team ([facility] Contact Info) Description 11/28/2025 9:00 AM EST Office Visit [facility] MEDICINE 230 [place] [address] Name, MD Boo 230 [place] [address] 12/12/2025 10:30 AM EST Telemedicine [facility] MEDICINE 230 [place] [address] Ame Love RN 12/16/2025 10:15 AM EST Office Visit [facility] CHC ADULT DENTAL [address] [place], [place] [phone] Dangelo Pino 01/14/2026 10:30 AM EDT Office Visit [facility] OPTOMETRY [address] [place], [place] [phone] Katlyn Vasquez, OD 230 [place] [address] documented as of this encounter Procedures Procedure [...] documented as of this encounter Care Teams Materials Clerk Relationship Specialty Start Date End Date Name, [place] [address] PCP - General Family Medicine 04/26/19 Ira Orozco PharmD [address] [place] [address] Pharmacist Internal Medicine 02/03/25 Janessa Fraga 11/23/24 documented as of this encounter
--- OUTSIDE RECORDS SUMMARY | 2025-09-09 18:30 | XMS_ITS | Encounter Summary ---
Author Organization [employer] Address [address] [facility] 7t [place] [address] Care Team Providers Care Beverage Server Name Role Phone Name, Boo FARLEY Primary Care Provider [phone] Ira Orozco PharmD Unavailable [phone] Reason for Visit * Reason Onset Date Comments Appointment Request 01/06/2025 Encounter Details Date Type Department Care Team ([facility] Contact Info) Description 01/06/2025 Telephone [facility] MEDICINE 230 [place], [place] [phone] Name, MD Boo 230 [place] [address] Appointment Request Social History Tobacco Use Types [...] r/s Apt from 01/06/25. Conatatc pt at [phone] documented in this encounter Plan of Treatment Upcoming Encounters Date Type Department Care Team (Late st Contact Info) Description 11/28/2025 9:00 AM EST Office Visit [facility] MEDICINE [address] [place] [address] Name, MD Boo [address] [place] [address] 12/12/2025 10:30 AM EST Telemedicine [facility] MEDICINE [address] [place] [address] Ame Love RN 12/16/2025 10:15 AM EST Office Visit [facility] CHC ADULT DENTAL [address] [place] [address] Dangelo Pino 01/14/2026 10:30 AM EDT Office Visit [facility] OPTOMETRY [address] [place], [place] [phone] Katlyn Vasquez, OD 230 [place] [address] documented as of this encounter Goals Goal [...] documented as of this encounter Care Teams Beverage Server Relationship Specialty Start Date End Date Name, MD Boo 230 [place] [address] PCP - General Family Medicine 04/26/19 Ira Orozco PharmD 230 [place] [address] Pharmacist Internal Medicine 02/03/25 aJnessa Fraga 11/23/24 documented as of this encounter
--- OUTSIDE RECORDS SUMMARY | 2025-09-09 18:30 | XMS_ITS | Encounter Summary ---
Author Organization [employer] Address 75 [facility] 7t [place] [address] Care Team Providers Care Director Intelligence Analysis Programs Name Role Phone Name, Boo FARLEY Primary Care Provider [phone] Ira Orozco PharmD Unavailable [phone] Reason for Visit * Reason Comments Med Refill Encounter Details Date Type Department Care Team ([facility] Contact Info) Description 04/21/2023 Refill [facility] 230 [place], [place] [phone] Nazia Curiel FNP Acute pain of right [...] Encounters Date Type Department Care Team ([facility] Contact Info) Description 11/28/2025 9:00 AM EST Office Visit [facility] MEDICINE 230 [place] [address] Name, MD Boo 230 [place] [address] 12/12/2025 10:30 AM EST Telemedicine [facility] MEDICINE 230 [place] [address] Ame Love, RN 12/16/2025 10:15 AM EST Office Visit [facility] CHC ADULT DENTAL [address] [place] [address] Dangelo Pino 01/14/2026 10:30 AM EDT Office Visit [facility] OPTOMETRY [address] [place] [address] Katlyn Vasquez, OD 230 [place] [address] documented as of this encounter Visit Diagnoses Diagnosis Acute pain of right shoulder documented in this encounter Additional Health Concerns Assessment Noted Time PHQ-9 Depression Total Score: 6 10/25/20 22 4:10 PM EST documented as of this encounter Care Teams Director Intelligence Analysis Programs Relationship Specialty Start Date End Date Name, MD Boo 230 [place] [address] PCP - General Family Medicine 04/26/19 Ira Orozco PharmD [address] [place] [address] Pharmacist Internal Medicine 02/03/25 Janessa Fraga 11/23/24 documented as of this encounter
--- OUTSIDE RECORDS SUMMARY | 2025-09-09 18:30 | XMS_ITS | Encounter Summary ---
Author Organization [employer] Address [address] [facility] [address] [place] [address] Care Team Providers Care Glass Edger Name Role Phone Name, Boo FARLEY Primary Care Provider [phone] Ira Orozco PharmD Unavailable [phone] Reason for Visit * Reason Onset Date Comments Nurse Triage 04/10/2024 Encounter Details Date Type Department Care Team ([facility] Contact Info) Description 04/10/2024 Telephone [facility] MEDICINE [address] [place], [place] [phone] Name, MD Boo 230 [place] [address] Nurse Triage Social History Tobacco Use Types [...] 9:00 AM EST Office Visit [facility] MEDICINE [address] [place] [address] Name, MD Boo 230 [place] [address] 12/12/2025 10:30 AM EST Telemedicine [facility] MEDICINE [address] [place] [address] Ame Love, GEM 12/16/2025 10:15 AM EST Office Visit [facility] CHC ADULT DENTAL [address] [place] [address] Dangelo Pino 01/14/2026 10:30 AM EDT Office Visit [facility] OPTOMETRY [address] [place] [address] Katlyn Vasquez, OD 230 [place] [address] documented as of this encounter Goals Goal [...] documented as of this encounter Care Teams Glass Edger Relationship Specialty Start Date End Date Name, MD Boo 230 [place] [address] PCP - General Family Medicine 04/26/19 Ira Orozco PharmD 230 [place] [address] Pharmacist Internal Medicine 02/03/25 Janessa Fraga 11/23/24 documented as of this encounter
--- OUTSIDE RECORDS SUMMARY | 2025-09-09 18:30 | XMS_ITS | Encounter Summary ---
Author Organization [employer] Address [address] [facility] [address] 7t [place] [address] Care Team Providers Care Sole Painter Name Role Phone Name, Boo FARLEY Primary Care Provider [phone] Ira Orozco PharmD Unavailable [phone] Reason for Visit * Reason Onset Date Comments Med Refill 04/09/2024 Encounter Details Date Type Department Care Team ([facility] Contact Info) Description 04/09/2024 Telephone [facility] MEDICINE 230 [place], [place] [phone] Name, MD Boo [address] [place] [address] Med Refill Social History Tobacco Use Types [...] powder And lidocaine (Lidoderm) 5 % patch video game script writer did confirm with pharmacy and was discontinued on 03/20 To be sent to: [facility] [place] - [address] documented in this encounter Plan of Treatment Upcoming Encounters Date Type Department Care Team (Late st Contact Info) Description 11/28/2025 9:00 AM EST Office Visit [facility] MEDICINE [address] [place] [address] Name, MD Boo [address] [place] [address] 12/12/2025 10:30 AM EST Telemedicine [facility] MEDICINE [address] [place] [address] Ame Love RN 12/16/2025 10:15 AM EST Office Visit [facility] CHC ADULT DENTAL [address] [place] [address] Dangelo Pino 01/14/2026 10:30 AM EDT Office Visit [facility] OPTOMETRY [address] [place] [address] Katlyn Vasquez, OD 230 [place] [address] documented as of this encounter Goals Goal [...] documented as of this encounter Care Teams Sole Painter Relationship Specialty Start Date End Date Name, MD Boo [address] [place] [address] PCP - General Family Medicine 04/26/19 Ira Orozco PharmD [address] [place] [address] Pharmacist Internal Medicine 02/03/25 Janessa Fraga 11/23/24 documented as of this encounter
--- OUTSIDE RECORDS SUMMARY | 2025-09-09 18:30 | XMS_ITS | Encounter Summary ---
Author Organization [employer] Address 75 [facility] 7t [place] [address] Care Team Providers Care Quarry Plug And Feather Driller Name Role Phone Name, Boo FARLEY Primary Care Provider [phone] Ira Orozco PharmD Unavailable [phone] Encounter Details Date Type Department Care Team (Late st Contact Info) Description 09/19/2022 [facility] [employer] [address] [place] [address] NameBoo MD [address] [place] [address] Social History Tobacco Use Types Packs/Day Years [...] Department Care Team (Late Contact Info) Description 11/28/2025 9:00 AM EST Office Visit [facility] MEDICINE [address] [place] [address] [phone] Name, MD Boo [address] [place] [address] [phone] 12/12/2025 10:30 AM EST Telemedicine [facility] MEDICINE [address] [place] [address] [phone] Ame Love RN 12/16/2025 10:15 AM EST Office Visit [facility] CHC ADULT DENTAL 505 [place] [address] Dangelo Pino 01/14/2026 10:30 AM EDT Office Visit C OPTOMETRY [address] [place], [place] [phone] Katlyn Vasquez, OD 230 [place] [address] documented as of this encounter Visit Diagnoses Not on filedocumented in this encounter Care Teams Quarry Plug And Feather Driller Relationship Specialty Start Date End Date Name, MD Boo 230 [place], [place] [phone] PCP - General Family Medicine 04/26/19 Ira Orozco PharmD [address] [place] [address] Pharmacist Internal Medicine 02/03/25 Janessa Fraga 11/23/24 documented as of this encounter
--- OUTSIDE RECORDS SUMMARY | 2025-09-09 18:30 | XMS_ITS | Encounter Summary ---
Author Organization [employer] Address 75 [facility] 7t [place] [address] Care Team Providers Care Highway Patrol Commander Name Role Phone Name, Boo FARLEY Primary Care Provider Ira Orozco PharmD Unavailable [phone] Encounter Details Date Type Department Care Team ([facility] Contact Info) Description 10/21/2022 Orders Only [address] [address] Lizzie Coburn RN Social History Tobacco Use [...] Description 11/28/2025 9:00 AM EST Office Visit [address] [address] Name, MD Boo [address] [place] [address] 12/12/2025 10:30 AM EST Telemedicine [address] [address] Ame Love, GEM 12/16/2025 10:15 AM EST Office Visit [facility] CHC ADULT DENTAL [address] [place] [address] MatyMario chauhanard 01/14/2026 10:30 AM EDT Office Visit [facility] OPTOMETRY [address] [place] [address] Katlyn Vasquez, OD [address] [place] [address] documented as of this encounter Procedures Procedure [...] EDT) Vitamin D, 25-OH, D2 <4 ng/mL [facility] Comment:This test was develo ped and its analytical performancecharacteristics have been determined by [employer] [place], [place]. It hasnot been cleared or approved by the U.S. Food and DrugAdministration. This assay has been validated pursuantto the CLIA regulations and is used for clinicalpurposes.THIS TEST WAS PERFORMED AT:[employer] [id number] [place] [address]GTPXGVRCUONG DE LEON MD,PHD Vitamin D, 25-OH, D3 29 ng/mL [facility] Comment:This test was develo ped and its analytical performancecharacteristics have been determined by [employer] [place], [place]. It hasnot been cleared or approved by the U.S. Food and DrugAdministration. This assay has been validated pursuantto the CLIA regulations and is used for clinicalpurposes. Vitamin D, 25-OH, Total 29(A) 30 - 100 ng/mL [facility] Comment: Vitamin D, 25-Hydroxy reports [...] Clin EndocrinolMetab. 2011;96(7):1911-30.For additional information, please refer tohttp://education.Gient/faq/HXF529(This link is being provided for informational/educational purposes only.) 02/01/2023 10:4 1 AM EDT 02/01/2023 10:41 AM EDT us [facility] External Provider LAB BLO OD ORDERABLES Final Result [facility] [address] [place] [phone] * TSH W/Reflex to FT4 (02/01/2023 10:41 AM EDT) TSH reflex Free T4 0.49 0.32 - 4.0 uIU/mL [facility] 02/01/2023 10:4 1 AM EDT 02/01/2023 10:41 AM EDT [facility] External Provider LAB BLO OD ORDERABLES Final Result Performing Organization Address City/[facility]/ZIP Co de Phone Number [facility] [address] [place] [address] [phone] * Vitamin B12/Folate, Serum Panel (02/01/2023 10:41 AM EDT) Vitamin B12 697 200 - 900 pg/mL [facility] Comment:NORMAL 200-900 PG/ML INDETERMINATE 160-199 PG/ML DEFICIENT < 160 PG/ML Folate 16.9 > or = 4.0 ng/mL [facility] Comment:Reference Values:> o r = 4.0 ng/mL< 4.0 ng/mL suggests folate deficiency Methotrexate, aminopterin and folinic acid(leucovorin) are chemotherapeutic agents whose molecularstructures are similar to folate; therefore, the Architectfolate assay cannot be used for patients using these drugs. 02/01/2023 10:4 1 AM EDT 02/01/2023 10:41 AM EDT [facility] External Provider LAB BLO OD ORDERABLES Final Result Performing Organization Address [facility] Co de Phone Number [facility] [address] [place] [address] [phone] * Lipase (02/01/2023 10:41 AM EDT) Lipase 21 8 - 78 U/L [facility] 02/01/2023 10:4 1 AM EDT 02/01/2023 10:41 AM EDT [facility] External Provider LAB BLO OD ORDERABLES Final Result Performing Organization Address [facility]/ZIP Co de Phone Number [facility] [address] [place] [address] [phone] * (ABNORMAL) Comprehensive Metabolic Panel (02/01/2023 10:41 AM EDT) Sodium 143 135 - 145 mmol/L [facility] Potassium 4.2 3.3 - 5.1 mmol/L [facility] Chloride 108 96 - 108 mmol/L [facility] Carbon Dioxide 25 22 - 29 mmol/L [facility] Anion Gap 14 12 - 20 [facility] Urea Nitrogen (BUN) 19(H) 9 - 16 mg/dL [facility] Creatinine, Serum 0.73 0.5 - 1.4 mg/dL [facility] Estimated Glomerular Filt Rate >60 [facility] Comment:NOTE: For -Am erican individuals, multiply the result by 1.210.Chronic Kidney Disease: Estimated GFR < 60 mL/min/1.46y3Iqerxl Kidney Disease: Estimated GFR < 15 mL/min/1.73m2 Glucose 113 60 - 115 mg/dL [facility] Calcium 9.6 8.4 - 10.2 mg/dL [facility] Bilirubin, Total 0.5 0.0 - 1.0 mg/dL [facility] Aspartate Amino Transferase 29 5 - 31 U/L [facility] Alanine Aminotransferase 54(H) 0 - 31 U/L [facility] Total Protein 7.1 6.5 - 8.0 g/dL [facility] Albumin Level 4.6 3.5 - 5.0 g/dL [facility] Alkaline Phosphatase 73 39 - 117 U/L [facility] 02/01/2023 10:4 1 AM EDT 02/01/2023 10:41 AM EDT us [facility] External Provider LAB BLO OD ORDERABLES Final Result [facility] [address] [place] [address] [phone] documented in this encounter Visit Diagnoses Not on filedocumented in this encounter Care Teams Highway Patrol Commander Relationship Specialty Start Date End Date Name, MD Boo 230 [place] [address] PCP - General Family Medicine 04/26/19 Ira Orozco PharmD 230 [place] [address] Pharmacist Internal Medicine 02/03/25 Janessa Fraga 11/23/24 documented as of this encounter
--- OUTSIDE RECORDS SUMMARY | 2025-09-09 18:30 | XMS_ITS | Encounter Summary ---
Author Organization [employer] Address 75 [facility] 7t [place] [address] Care Team Providers Care Cargo Vessel Stewardess Name Role Phone Name, Boo FARLEY Primary Care Provider [phone] Ira Orozco PharmD Unavailable [phone] Reason for Visit * Reason Comments Med Refill Encounter Details Date Type Department Care Team ([facility] Contact Info) Description 06/19/2023 Refill [facility] MEDICINE [address] [place] [address] [phone] Boo [place] MD [address] [place] [address] [phone] Moderate persistent asthma without complication; Chronic pain [...] Upcoming Encounters Date Type Department Care Team ([facility] Contact Info) Description 11/28/2025 9:00 AM EST Office Visit [facility] MEDICINE [address] [place] [address] [phone] Boo [place] MD [address] [place] [address] 12/12/2025 10:30 AM EST Telemedicine [facility] MEDICINE 230 [place] [address] Ame Love, RN 12/16/2025 10:15 AM EST Office Visit [facility] CHC ADULT DENTAL [address] [place] [address] Dangelo Pino 01/14/2026 10:30 AM EDT Office Visit [facility] OPTOMETRY [address] [place] [address] PedroKatlyn santos, OD 230 [place] [address] documented as of this encounter Visit Diagnoses Diagnosis Moderate persistent asthma without complication Chronic pain syndrome documented in this encounter Additional Health Concerns Assessment Noted Time PHQ-9 Depression Total Score: 6 10/25/20 22 4:10 PM EST documented as of this encounter Care Teams Cargo Vessel Stewardess Relationship Specialty Start Date End Date Name, MD Boo [address] [place] [address] PCP - General Family Medicine 04/26/19 Ira Orozco PharmD [address] [place] [address] Pharmacist Internal Medicine 02/03/25 Janessa Fraga 11/23/24 documented as of this encounter
--- OUTSIDE RECORDS SUMMARY | 2025-09-09 18:30 | XMS_ITS | Encounter Summary ---
Author Organization [employer] Address [address] [facility] [address] 7t [place] [address] Care Team Providers Care Hr Payroll Coordinator Name Role Phone Name, Boo FARLEY Primary Care Provider [phone] Ira Orozco PharmD Unavailable [phone] Encounter Details Date Type Department Care Team ([facility] Contact Info) Description 11/21/2024 Telephone [facility] MEDICINE 230 [place], [place] [phone] Name, MD Boo 230 [place] [address] Social History Tobacco Use Types Packs/Day Years [...] Description 11/28/2025 9:00 AM EST Office Visit [facility] MEDICINE [address] [place] [address] Name, MD Boo [address] [place] [address] 12/12/2025 10:30 AM EST Telemedicine [facility] MEDICINE [address] [place] [address] Ame Love, RN 12/16/2025 10:15 AM EST Office Visit [facility] CHC ADULT DENTAL [address] [place] [address] Dangelo Pino 01/14/2026 10:30 AM EDT Office Visit [facility] OPTOMETRY [address] [place] [address] Katlyn Vasquez, LESLEY 230 [place] [address] documented as of this encounter Goals Goal [...] documented as of this encounter Care Teams Hr Payroll Coordinator Relationship Specialty Start Date End Date Name, MD Boo 230 [place] [address] PCP - General Family Medicine 04/26/19 Ira Orozco PharmD 230 [place] [address] Pharmacist Internal Medicine 02/03/25 Janessa Fraga 11/23/24 documented as of this encounter
--- OUTSIDE RECORDS SUMMARY | 2025-09-09 18:30 | XMS_ITS | Encounter Summary ---
Author Organization [employer] Address 75 [facility] 7t [place] [address] Care Team Providers Care Kettle Room Helper Name Role Phone Name, Boo FARLEY Primary Care Provider [phone] Ira Orozco PharmD Unavailable [phone] Reason for Visit * Reason Comments Med Refill Encounter Details Date Type Department Care Team ([facility] Contact Info) Description 02/14/2024 Refill [facility] MEDICINE 230 [place], [place] [phone] Name, MD Boo 230 [place], [place] [phone] Fibromyalgia Social History Tobacco Use Types Packs/Day [...] 9:00 AM EST Office Visit [facility] MEDICINE [address] [place] [address] Boo [place] MD [address] [place] [address] 12/12/2025 10:30 AM EST Telemedicine [facility] MEDICINE [address] [place] [address] Ame Love RN 12/16/2025 10:15 AM EST Office Visit [facility] CHC ADULT DENTAL [address] [place] [address] Dangelo Pino 01/14/2026 10:30 AM EDT Office Visit [facility] OPTOMETRY [address] [place] [address] Katlyn Vasquez, OD 230 [place] [address] documented as of this encounter Goals Goal [...] documented as of this encounter Care Teams Kettle Room Helper Relationship Specialty Start Date End Date Boo [place] MD [address] [place] [address] PCP - General Family Medicine 04/26/19 Ira Orozco, Nelida 230 [place] [address] Pharmacist Internal Medicine 02/03/25 Janessa Fraga 11/23/24 documented as of this encounter
--- OUTSIDE RECORDS SUMMARY | 2025-09-09 18:30 | XMS_ITS | Encounter Summary ---
Author Organization [employer] Address 75 [facility] 7t [place] [address] Care Team Providers Care Interventional Radiology Technologist Name Role Phone Name, Boo FARLEY Primary Care Provider [phone] Ira Orozco PharmD Unavailable [phone] Reason for Visit * Reason Comments Med Refill Encounter Details Date Type Department Care Team ([facility] Contact Info) Description 06/07/2023 Refill [facility] [address] [place] [address] [phone] Nazia Curiel FNP Fibromyalgia; Acute [facility] of [...] [facility] Description 11/28/2025 9:00 AM EST Office Visit [facility] MEDICINE [address] [place], [place] [phone] Name, MD Boo [address] [place] [address] 12/12/2025 10:30 AM EST Telemedicine [facility] MEDICINE [address] [place] [address] Ame Love, RN 12/16/2025 10:15 AM EST Office Visit [facility] CHC ADULT DENTAL [address] [place] [address] Dangelo Pino 01/14/2026 10:30 AM EDT Office Visit [facility] OPTOMETRY [address] [place] [address] Katlyn Vasquez, OD 230 [place] [address] documented as of this encounter Visit Diagnoses Diagnosis Fibromyalgia Unspecified myalgia and myositis Acute pain of right shoulder documented in this encounter Additional Health Concerns Assessment Noted Time PHQ-9 Depression Total Score: 6 10/25/20 22 4:10 PM EST documented as of this encounter Care Teams Interventional Radiology Technologist Relationship Specialty Start Date End Date Name, MD Boo 230 [place] [address] PCP - General Family Medicine 04/26/19 Ira Orozco PharmD [address] [place] [address] Pharmacist Internal Medicine 02/03/25 Janessa Fraga 11/23/24 documented as of this encounter
--- OUTSIDE RECORDS SUMMARY | 2025-09-09 18:30 | XMS_ITS | Encounter Summary ---
Author Organization [employer] Address 75 [facility] 7t [place] [address] Care Team Providers Care Reaming Machine Operator Name Role Phone Name, Boo FARLEY Primary Care Provider [phone] Ira Orozco PharmD Unavailable [phone] Reason for Visit * Reason Onset Date Comments FYI 11/19/2024 Encounter Details Date Type Department Care Team ([facility] Contact Info) Description 11/19/2024 Telephone [facility] MEDICINE 230 [place], [place] [phone] Name, MD Boo 230 [place] [address] FY Social History Tobacco Use Types Packs/Day [...] Caring , notifying patient will be getting nursing home services starting today 11/19/2024 . If any questions please contact Christine [phone] documented in this encounter Plan of Treatment Upcoming Encounters Date Type Department Care Team (Late st Contact Info) Description 11/28/2025 9:00 AM EST Office Visit [facility] MEDICINE [address] [place] [address] Name, MD Boo 230 [place] [address] 12/12/2025 10:30 AM EST Telemedicine [facility] MEDICINE 230 [place] [address] Ame Love, RN 12/16/2025 10:15 AM EST Office Visit [facility] CHC ADULT DENTAL [address] [place] [address] Dangelo Pino 01/14/2026 10:30 AM EDT Office Visit [facility] OPTOMETRY [address] [place] [address] PedroTravis santosn, OD 230 [place] [address] documented as of this encounter Goals Goal [...] documented as of this encounter Care Teams Reaming Machine Operator Relationship Specialty Start Date End Date Name, MD Boo 230 [place] [address] PCP - General Family Medicine 04/26/19 Ira Orozco PharmD 230 [place] [address] Pharmacist Internal Medicine 02/03/25 Janessa Fraga 11/23/24 documented as of this encounter
--- OUTSIDE RECORDS SUMMARY | 2025-09-09 18:30 | XMS_ITS | Encounter Summary ---
Author Organization [employer] Address 75 [facility] 7t [place] [address] Care Team Providers Care Artificial Cherry Maker Name Role Phone Name, Boo FARLEY Primary Care Provider [phone] Ira Orozco PharmD Unavailable [phone] Reason for Visit * Reason Comments Med Refill Encounter Details Date Type Department Care Team ([facility] Contact Info) Description 03/15/2024 Refill [facility] MEDICINE 230 [place], [place] [phone] Name, MD Boo 230 [place], [place] [phone] Chronic pain syndrome Social History Tobacco Use [...] Office Visit [facility] MEDICINE [address] [place] [address] NameBoo MD [address] [place] [address] 12/12/2025 10:30 AM EST Telemedicine [facility] MEDICINE [address] [place] [address] Ame Love, GEM 12/16/2025 10:15 AM EST Office Visit [facility] CHC ADULT DENTAL [address] [place] [address] Dangelo Pino 01/14/2026 10:30 AM EDT Office Visit [facility] OPTOMETRY [address] [place] [address] Katlyn Vasquez, OD 230 [place] [address] documented as of this encounter Goals Goal [...] documented as of this encounter Care Teams Artificial Cherry Maker Relationship Specialty Start Date End Date Name, MD Boo [address] [place] [address] PCP - General Family Medicine 04/26/19 Ira Orozco, Nelida [address] [place] [address] NEREIDA Balderrama [phone] Pharmacist Internal Medicine 02/03/25 Janessa Fraga 11/23/24 documented as of this encounter
--- OUTSIDE RECORDS SUMMARY | 2025-09-09 18:30 | XMS_ITS | Encounter Summary ---
Author Organization [employer] Address [address] [facility] [address] 7t [place] [address] Care Team Providers Care Sole Dyer Name Role Phone Name, Boo FARLEY Primary Care Provider [phone] Ira Orozco PharmD Unavailable [phone] Encounter Details Date Type Department Care Team ([facility] Contact Info) Description 01/22/2024 Orders Only [facility] MEDICINE 230 [place], [place] [phone] Bel Moreno MD 230 [place] [address] Social History Tobacco Use Types Packs/Day Years [...] Description 11/28/2025 9:00 AM EST Office Visit [facility] MEDICINE [address] [place] [address] NameBoo MD [address] [place] [address] 12/12/2025 10:30 AM EST Telemedicine [facility] MEDICINE [address] [place] [address] Ame Love, GEM 12/16/2025 10:15 AM EST Office Visit [facility] CHC ADULT DENTAL [address] [place] [address] Dangelo Pino 01/14/2026 10:30 AM EDT Office Visit [facility] OPTOMETRY [address] [place] [address] Pedro, Katlyn, OD 230 [place] [address] documented as of this encounter Goals Goal [...] as of this encounter Care Teams Sole Dyer Relationship Specialty Start Date End Date NameBoo MD [address] [place] [address] PCP - General Family Medicine 04/26/19 Ira Orozco, LesleyD [address] [place] [address] Pharmacist Internal Medicine 02/03/25 Janessa Fraga 11/23/24 documented as of this encounter
--- OUTSIDE RECORDS SUMMARY | 2025-09-09 18:30 | XMS_ITS | Encounter Summary ---
Author Organization [employer] Address [address] [facility] 7t [place] [address] Care Team Providers Care Tire Mold Engraver Name Role Phone Name, Boo FARLEY Primary Care Provider [phone] Ira Orozco PharmD Unavailable [phone] Reason for Visit * Reason Comments Med Refill Encounter Details Date Type Department Care Team ([facility] Contact Info) Description 05/10/2023 Refill [facility] MEDICINE [address] [place], [place] [phone] Name, MD Boo 230 [place] [address] Moderate persistent asthma without complication; Chronic pain [...] Encounters Date Type Department Care Team ([facility] Contact Info) Description 11/28/2025 9:00 AM EST Office Visit [facility] MEDICINE 230 [place] [address] Name, MD Boo 230 [place] [address] 12/12/2025 10:30 AM EST Telemedicine [facility] MEDICINE 230 [place] [address] Ame Love, GEM 12/16/2025 10:15 AM EST Office Visit [facility] CHC ADULT DENTAL [address] [place] [address] Dangelo Pino 01/14/2026 10:30 AM EDT Office Visit [facility] OPTOMETRY [address] [place] [address] PedroTravis santosn, OD 230 [place] [address] documented as of this encounter Visit Diagnoses Diagnosis Moderate persistent asthma without complication Chronic pain syndrome documented in this encounter Additional Health Concerns Assessment Noted Time PHQ-9 Depression Total Score: 6 10/25/20 22 4:10 PM EST documented as of this encounter Care Teams Tire Mold Engraver Relationship Specialty Start Date End Date Name, MD Boo [address] [place] [address] PCP - General Family Medicine 04/26/19 Ira Orozco PharmD [address] [place] [address] Pharmacist Internal Medicine 02/03/25 Janessa Fraga 11/23/24 documented as of this encounter
--- OUTSIDE RECORDS SUMMARY | 2025-09-09 18:30 | XMS_ITS | Encounter Summary ---
Author Organization [employer] Address [address] [facility] [address] 7t [place] [address] Care Team Providers Care Cutting Machine Fixer Name Role Phone Name, Boo FARLEY Primary Care Provider [phone] Ira Orozco PharmD Unavailable [phone] Reason for Visit * Reason Onset Date Comments Medication Question 09/20/2024 Encounter Details Date Type Department Care Team ([facility] Contact Info) Description 09/20/2024 Telephone [facility] MEDICINE 230 [place], [place] [phone] Name, MD Boo 230 [place] [address] Medication Question Social History Tobacco Use Types [...] t he electric, gas, oil or water [employer] threatened to shut off services in your [...] patch not be genetic. Contact pt at [phone] documented in this encounter Plan of Treatment Upcoming Encounters Date Type Department Care Team (Late st Contact Info) Description 11/28/2025 9:00 AM EST Office Visit [facility] MEDICINE [address] [place] [address] Name, MD Boo [address] [place] [address] 12/12/2025 10:30 AM EST Telemedicine [facility] MEDICINE [address] [place] [address] Ame Love RN 12/16/2025 10:15 AM EST Office Visit [facility] CHC ADULT DENTAL [address] [place] [address] Dangelo Pino 01/14/2026 10:30 AM EDT Office Visit [facility] OPTOMETRY [address] [place], [place] [phone] Katlyn Vasquez, OD 230 [place] [address] documented as of this encounter Goals Goal [...] documented as of this encounter Care Teams Cutting Machine Fixer Relationship Specialty Start Date End Date Name, MD Boo 230 [place] [address] PCP - General Family Medicine 04/26/19 Ira Orozco PharmD 230 [place] [address] Pharmacist Internal Medicine 02/03/25 Janessa Fraga 11/23/24 documented as of this encounter
--- OUTSIDE RECORDS SUMMARY | 2025-09-09 18:30 | XMS_ITS | Encounter Summary ---
Author Organization [employer] Address 75 [facility] 7t [place] [address] Care Team Providers Care Waste Chopper Name Role Phone Name, Boo FARLEY Primary Care Provider [phone] Ira Orozco PharmD Unavailable [phone] Reason for Visit * Reason Onset Date Comments Request For Order(s) 01/03/2024 Encounter Details Date Type Department Care Team ([facility] Contact Info) Description 01/03/2024 Telephone [facility] MEDICINE 230 [place] [address] Name, MD Boo 230 [place] [address] Request For Order(s) Social History Tobacco Use [...] triaged today (01/03). Please contact pt at [phone] documented in this encounter Plan of Treatment Upcoming Encounters Date Type Department Care Team (Late st Contact Info) Description 11/28/2025 9:00 AM EST Office Visit [address] [address] Name, MD Boo [address] [place] [address] 12/12/2025 10:30 AM EST Telemedicine [address] [address] Ame Love RN 12/16/2025 10:15 AM EST Office Visit [facility] CHC ADULT DENTAL [address] [place] [address] Dangelo Pino 01/14/2026 10:30 AM EDT Office Visit [facility] OPTOMETRY [address] [place] [address] Katlyn Vasquez, OD 230 [place] [address] documented as of this encounter Goals Goal [...] documented as of this encounter Care Teams Waste Chopper Relationship Specialty Start Date End Date Name, MD Boo 230 [place] [address] PCP - General Family Medicine 04/26/19 Ira Orozco, LesleyD 230 [place] [address] Pharmacist Internal Medicine 02/03/25 Janessa Fraga 11/23/24 documented as of this encounter
--- OUTSIDE RECORDS SUMMARY | 2025-09-09 18:30 | XMS_ITS | Encounter Summary ---
Author Organization [employer] Address [address] [facility] 7t [place] [address] Care Team Providers Care Director Of Flight Operations Name Role Phone Name, Boo FARLEY Primary Care Provider [phone] Ira Orozco PharmD Unavailable [phone] Reason for Visit * Reason Comments Med Refill Encounter Details Date Type Department Care Team ([facility] Contact Info) Description 04/17/2024 Refill [facility] MEDICINE 230 [place], [place] [phone] Name, MD Boo 230 [place], [place] [phone] Chronic pain syndrome Social History Tobacco Use [...] Description 11/28/2025 9:00 AM EST Office Visit [facility] MEDICINE [address] [place] [address] NameBoo MD [address] [place] [address] 12/12/2025 10:30 AM EST Telemedicine [facility] MEDICINE [address] [place] [address] Ame Love, GEM 12/16/2025 10:15 AM EST Office Visit [facility] CHC ADULT DENTAL [address] [place] [address] Dangelo Pino 01/14/2026 10:30 AM EDT Office Visit [facility] OPTOMETRY [address] [place] [address] Katlyn Vasquez, OD 230 [place] [address] documented as of this encounter Goals Goal [...] as of this encounter Care Teams Director Of Flight Operations Relationship Specialty Start Date End Date Name, MD Boo [address] [place] [address] PCP - General Family Medicine 04/26/19 Ira Orozco, Nelida [address] [place] [address] NEREIDA Balderrama [phone] Pharmacist Internal Medicine 02/03/25 Janessa Fraga 11/23/24 documented as of this encounter
--- OUTSIDE RECORDS SUMMARY | 2025-09-09 18:30 | XMS_ITS | Encounter Summary ---
Author Organization [facility] [employer] Address 75 [facility] 7t [place] [address] Care Team Providers Care Manager Of Broadcast Content Name Role Phone Name, Boo FARLEY Primary Care Provider [phone] Ira Orozco PharmD Unavailable [phone] Reason for Visit * Reason Comments Med Refill Encounter Details Date Type Department Care Team ([facility] Contact Info) Description 07/30/2024 Refill [facility] MEDICINE 230 [place], [place] [phone] Name, MD Boo 230 [place] [address] Lumbar radiculopathy Social History Tobacco Use Types [...] AM EST Office Visit [facility] MEDICINE [address] [place] [address] Name, MD Boo 230 [place] [address] 12/12/2025 10:30 AM EST Telemedicine [facility] MEDICINE 230 [place] [address] Ame Love, GEM 12/16/2025 10:15 AM EST Office Visit [facility] CHC ADULT DENTAL [address] [place] [address] Dangelo Pino 01/14/2026 10:30 AM EDT Office Visit [facility] OPTOMETRY 267 [place] [address] Katlyn Vasquez, OD 230 [place] [address] documented as of this encounter Goals Goal [...] as of this encounter Care Teams Manager Of Broadcast Content Relationship Specialty Start Date End Date Name, MD Boo 230 [place] [address] PCP - General Family Medicine 04/26/19 Ira Orozco PharmD 230 [place] [address] Pharmacist Internal Medicine 02/03/25 Janessa Fraga 11/23/24 documented as of this encounter
--- OUTSIDE RECORDS SUMMARY | 2025-09-09 18:30 | XMS_ITS | Encounter Summary ---
Author Organization [employer] Address 75 [facility] 7t [place] [address] Care Team Providers Care Interior Design Professor Name Role Phone Name, Boo FARLEY Primary Care Provider [phone] Ira Orozco PharmD Unavailable [phone] Reason for Visit * Reason Comments Med Refill Encounter Details Date Type Department Care Team ([facility] Contact Info) Description 05/01/2023 Refill [facility] 230 [place], [place] [phone] Nazia Curiel FNP Acute pain of right [...] Date Type Department Care Team ([facility] Contact Info) Description 11/28/2025 9:00 AM EST Office Visit [facility] MEDICINE 230 [place] [address] Name, MD Boo 230 [place] [address] 12/12/2025 10:30 AM EST Telemedicine [facility] MEDICINE 230 [place] [address] Ame Love, RN 12/16/2025 10:15 AM EST Office Visit [facility] CHC ADULT DENTAL [address] [place] [address] Dangelo Pino 01/14/2026 10:30 AM EDT Office Visit [facility] OPTOMETRY [address] [place] [address] Katlyn Vasquez, OD 230 [place] [address] documented as of this encounter Visit Diagnoses Diagnosis Acute pain of right shoulder documented in this encounter Additional Health Concerns Assessment Noted Time PHQ-9 Depression Total Score: 6 10/25/20 22 4:10 PM EST documented as of this encounter Care Teams Interior Design Professor Relationship Specialty Start Date End Date Name, MD Boo 230 [place] [address] PCP - General Family Medicine 04/26/19 Ira Orozco PharmD [address] [place] [address] Pharmacist Internal Medicine 02/03/25 Janessa Fraga 11/23/24 documented as of this encounter
--- OUTSIDE RECORDS SUMMARY | 2025-09-09 18:30 | XMS_ITS | Encounter Summary ---
Author Organization [employer] Address 75 [facility] 7t [place] [address] Care Team Providers Care Nursing Techn Name Role Phone Name, Boo FARLEY Primary Care Provider [phone] Ira Orozco PharmD Unavailable [phone] Reason for Visit * Reason Comments Med Refill Encounter Details Date Type Department Care Team ([facility] Contact Info) Description 04/21/2023 Refill [facility] MEDICINE 230 [place], [place] [phone] Name, MD Boo 230 [place] [address] Moderate persistent asthma without complication Social History [...] Upcoming Encounters Date Type Department Care Team ([facility] Contact Info) Description 11/28/2025 9:00 AM EST Office Visit [facility] MEDICINE 230 [place] [address] Name, MD Boo 230 [place] [address] 12/12/2025 10:30 AM EST Telemedicine [facility] MEDICINE 230 [place] [address] Ame Love, RN 12/16/2025 10:15 AM EST Office Visit [facility] CHC ADULT DENTAL [address] [place] [address] Dangelo Pino 01/14/2026 10:30 AM EDT Office Visit [facility] OPTOMETRY 267 [place] [address] Katlyn Vasquez, OD 230 [place] [address] documented as of this encounter Visit Diagnoses Diagnosis Moderate persistent asthma without complication documented in this encounter Additional Health Concerns Assessment Noted Time PHQ-9 Depression Total Score: 6 10/25/20 22 4:10 PM EST documented as of this encounter Care Teams Nursing Techn Relationship Specialty Start Date End Date Name, MD Boo [address] [place] [address] PCP - General Family Medicine 04/26/19 Ira Orozco PharmD [address] [place] [address] Pharmacist Internal Medicine 02/03/25 Janessa Fraga 11/23/24 documented as of this encounter
--- OUTSIDE RECORDS SUMMARY | 2025-09-09 18:30 | XMS_ITS | Encounter Summary ---
Author Organization [employer] Address [address] [facility] 7t [place] [address] Care Team Providers Care Washer Engineer Helper Name Role Phone Name, Boo FARLEY Primary Care Provider [phone] Ira Orozco PharmD Unavailable [phone] Reason for Visit * Reason Comments Med Refill Encounter Details Date Type Department Care Team ([facility] Contact Info) Description 05/17/2023 Refill [facility] MEDICINE 230 [place], [place] [phone] Name, MD Boo 230 [place] [address] Chronic pain syndrome Social History Tobacco Use [...] Description 11/28/2025 9:00 AM EST Office Visit [facility] MEDICINE 230 [place] [address] Name, MD Boo 230 [place] [address] 12/12/2025 10:30 AM EST Telemedicine [facility] MEDICINE 230 [place] [address] Ame Love, RN 12/16/2025 10:15 AM EST Office Visit [facility] CHC ADULT DENTAL [address] [place] [address] Dangelo Pino 01/14/2026 10:30 AM EDT Office Visit [facility] OPTOMETRY 267 [place] [address] Katlyn Vasquez, OD 230 [place] [address] documented as of this encounter Visit Diagnoses Diagnosis Chronic pain syndrome documented in this encounter Additional Health Concerns Assessment Noted Time PHQ-9 Depression Total Score: 6 10/25/20 22 4:10 PM EST documented as of this encounter Care Teams Washer Engineer Helper Relationship Specialty Start Date End Date Name, MD Boo [address] [place] [address] PCP - General Family Medicine 04/26/19 Ira Orozco PharmD [address] [place] [address] Pharmacist Internal Medicine 02/03/25 Janessa Fraga 11/23/24 documented as of this encounter
--- OUTSIDE RECORDS SUMMARY | 2025-09-09 18:30 | XMS_ITS | Encounter Summary ---
Author Organization [employer] Address [address] [facility] [address] 7t [place] [address] Care Team Providers Care Temper Mill Roller Name Role Phone Name, Boo FARLEY Primary Care Provider [phone] Ira Orozco PharmD Unavailable [phone] Reason for Visit * Reason Onset Date Comments Med Refill 01/03/2024 Encounter Details Date Type Department Care Team ([facility] Contact Info) Description 01/03/2024 Telephone [facility] MEDICINE 230 [place], [place] [phone] Name, MD Boo 230 [place] [address] Med Refill Social History Tobacco Use Types [...] to [facility] [place] [facility]. States she does not want generic, only brand name. documented in this encounter Plan of Treatment Upcoming Encounters Date Type Department Care Team (Late st Contact Info) Description 11/28/2025 9:00 AM EST Office Visit [facility] MEDICINE [address] [place] [address] Name, MD Boo [address] [place] [address] 12/12/2025 10:30 AM EST Telemedicine [facility] MEDICINE [address] [place] [address] Ame Love RN 12/16/2025 10:15 AM EST Office Visit [facility] CHC ADULT DENTAL [address] [place] [address] Dangelo Pino 01/14/2026 10:30 AM EDT Office Visit [facility] OPTOMETRY [address] [place], [place] [phone] Katlyn Vasquez, OD 230 [place] [address] documented as of this encounter Goals Goal [...] documented as of this encounter Care Teams Temper Mill Roller Relationship Specialty Start Date End Date Name, MD Boo 230 [place] [address] PCP - General Family Medicine 04/26/19 Ira Orozco PharmD 230 [place] [address] Pharmacist Internal Medicine 02/03/25 Janessa Fraga 11/23/24 documented as of this encounter
--- OUTSIDE RECORDS SUMMARY | 2025-09-09 18:30 | XMS_ITS | Encounter Summary ---
Author Organization [employer] Address 75 [facility] 7t [place] [address] Care Team Providers Care Unionmelt Operator Name Role Phone Name, Boo FARLEY Primary Care Provider [phone] Ira Orozco PharmD Unavailable [phone] Reason for Visit * Reason Onset Date Comments [place] 12/17/2024 Encounter Details Date Type Department Care Team ([facility] Contact Info) Description 12/17/2024 Telephone [facility] MEDICINE 230 [place], [place] [phone] Name, MD Boo 230 [place] [address] [place] Social History Tobacco Use Types Packs/Day [...] (Lidoderm) 5 % patch Contact pt at [phone] documented in this encounter Plan of Treatment Upcoming Encounters Date Type Department Care Team ([facility] st Contact Info) Description 11/28/2025 9:00 AM EST Office Visit [facility] MEDICINE 230 [place] [address] Name, MD Boo 230 [place] [address] 12/12/2025 10:30 AM EST Telemedicine [facility] MEDICINE 230 [place] [address] Ame Love, RN 12/16/2025 10:15 AM EST Office Visit [facility] CHC ADULT DENTAL [address] [place] [address] Dangelo Pino 01/14/2026 10:30 AM EDT Office Visit [facility] OPTOMETRY [address] [place] [address] Katlyn Vasquez, OD 230 [place] [address] documented as of this encounter Goals Goal [...] documented as of this encounter Care Teams Unionmelt Operator Relationship Specialty Start Date End Date Name, MD Boo 230 [place] [address] PCP - General Family Medicine 04/26/19 Ira Orozco PharmD 230 [place] [address] Pharmacist Internal Medicine 02/03/25 Janessa Fraga 11/23/24 documented as of this encounter
--- OUTSIDE RECORDS SUMMARY | 2025-09-09 18:31 | XMS_ITS | Encounter Summary ---
Author Organization [employer] Address 75 [facility] 7t [place] [address] Care Team Providers Care Nodulizer Name Role Phone Name, Boo FARLEY Primary Care Provider Ira Orozco PharmD Unavailable [phone] Encounter Details Date Type Department Care [...] Description 11/28/2025 9:00 AM EST Office Visit [facility] MEDICINE [address] [place] [address] Name, MD Boo 230 [place] [address] 12/12/2025 10:30 AM EST Telemedicine [facility] MEDICINE 230 [place] [address] Ame Love, GEM 12/16/2025 10:15 AM EST Office Visit [facility] CHC ADULT DENTAL [address] [place] [address] Dangelo Pino 01/14/2026 10:30 AM EDT Office Visit [facility] OPTOMETRY [address] [place] [address] Katlyn Vasquez, OD 230 [place] [address] documented as of this encounter Goals Goal [...] documented as of this encounter Care Teams Nodulizer Relationship Specialty Start Date End Date Name, MD Boo 230 [place] [address] PCP - General Family Medicine 04/26/19 Ira Orozco, LesleyD 230 [place] [address] Pharmacist Internal Medicine 02/03/25 Janessa [facility] 11/23/24 documented as of this encounter
--- OUTSIDE RECORDS SUMMARY | 2025-09-09 18:31 | XMS_ITS | Encounter Summary ---
Author Organization [employer] Address 75 [facility] 7t [place] [address] Care Team Providers Care Content Development Specialist Name Role Phone Name, Boo FARLEY Primary Care Provider [phone] Ira Orozco PharmD Unavailable [phone] Reason for Visit * Reason Comments Med Refill Encounter Details Date Type Department Care Team ([facility] Contact Info) Description 09/04/2025 Refill [facility] MEDICINE 230 [place], [place] [phone] Name, MD Boo 230 [place], [place] [phone] Lumbar radiculopathy Social History Tobacco Use Types [...] Description 11/28/2025 9:00 AM EST Office Visit [facility] MEDICINE 230 [place] [address] Name, MD Boo 230 [place] [address] 12/12/2025 10:30 AM EST Telemedicine [facility] MEDICINE 230 [place] [address] Ame Love, RN 12/16/2025 10:15 AM EST Office Visit [facility] CHC ADULT DENTAL [address] [place] [address] Dangelo Pino 01/14/2026 10:30 AM EDT Office Visit [facility] OPTOMETRY [address] [place] [address] Katlyn Vasquez, LESLEY 230 [place] [address] documented as of this encounter Goals Goal [...] documented as of this encounter Care Teams Content Development Specialist Relationship Specialty Start Date End Date Name, MD Boo 230 [place] [address] PCP - General Family Medicine 04/26/19 Ira Orozco PharmD 230 [place] [address] Pharmacist Internal Medicine 02/03/25 Janessa Fraga 11/23/24 documented as of this encounter
--- OUTSIDE RECORDS SUMMARY | 2025-09-09 18:31 | XMS_ITS | Encounter Summary ---
Author Organization [employer] Address [address] [facility] [address] 7t [place] [address] Care Team Providers Care Concrete Laborer Name Role Phone Name, Boo FARLEY Primary Care Provider [phone] Ira Orozco PharmD Unavailable [phone] Reason for Visit * Reason Onset Date Comments Prior Authorization 07/14/2025 Encounter Details Date Type Department Care Team ([facility] Contact Info) Description 07/14/2025 Telephone [facility] MEDICINE 230 [place], [place] [phone] Name, MD Boo 230 [place] [address] Prior Authorization Social History Tobacco Use Types [...] Description 11/28/2025 9:00 AM EST Office Visit [facility] MEDICINE [address] [place] [address] Name, MD Boo [address] [place] [address] 12/12/2025 10:30 AM EST Telemedicine [facility] MEDICINE [address] [place] [address] Ame Love RN 12/16/2025 10:15 AM EST Office Visit [facility] CHC ADULT DENTAL [address] [place] [address] Dangelo Pino 01/14/2026 10:30 AM EDT Office Visit [facility] OPTOMETRY [address] [place], [place] [phone] Katlyn Vasquez, LESLEY 230 [place] [address] documented as of this encounter Goals Goal Patient Goal Type Associated Problems Recent Progress Patient-Stated? Author Blood Pressure < 140/90 Blood Pressure 168/68( 025 3:40 PM EST) Moe Mcgee documented as of this encounter Visit Diagnoses Not on filedocumented in this encounter Additional Health Concerns Assessment Noted Time PHQ-9 Depression Total Score: 025 10:47 AM EDT documented as of this encounter Care Teams Concrete Laborer Relationship Specialty Start Date End Date Name, MD Boo 230 [place] [address] PCP - General Family Medicine 04/26/19 Ira Orozco, Nelida 230 [place] [address] Pharmacist Internal Medicine 02/03/25 Janessa Fraga 11/23/24 documented as of this encounter
--- OUTSIDE RECORDS SUMMARY | 2025-09-09 18:31 | XMS_ITS | Encounter Summary ---
Author Organization [employer] Address [address] [facility] 7t [place] [address] Care Team Providers Care Eyeglass Maker Name Role Phone Name, Boo FARLEY Primary Care Provider [phone] Ira Orozco PharmD Unavailable [phone] Reason for Visit * Reason Comments Med Refill Encounter Details Date Type Department Care Team ([facility] Contact Info) Description 06/04/2025 Refill [facility] MEDICINE [address] [place], [place] [phone] Name, MD Boo [address] [place], [place] [phone] Social History Tobacco Use Types Packs/Day Years [...] [facility] MEDICINE [address] [place] [address] Name, MD Boo [address] [place] [address] 12/12/2025 10:30 AM EST Telemedicine [facility] MEDICINE [address] [place] [address] Ame Love, GEM 12/16/2025 10:15 AM EST Office Visit [facility] CHC ADULT DENTAL [address] [place] [address] Dangelo Pino 01/14/2026 10:30 AM EDT Office Visit [facility] OPTOMETRY [address] [place] [address] Katlyn Vasquez, OD [address] [place] [address] documented as of this encounter Goals Goal [...] documented as of this encounter Care Teams Eyeglass Maker Relationship Specialty Start Date End Date Name, MD Boo [address] [place] [address] PCP - General Family Medicine 04/26/19 Ira Orozco PharmD [address] [place] [address] Pharmacist Internal Medicine 02/03/25 Janessa Fraga 11/23/24 documented as of this encounter
--- OUTSIDE RECORDS SUMMARY | 2025-09-09 18:31 | XMS_ITS | Data Portability ---
Author Organization NEREIDA - Yasir Eisenberg Txmihir [facility], [facility] Address [address] [place] [address] Care Team Providers Care Plastics Technician Name Role Phone NAME, HERON Primary Care Provider Assessment Encounter Date Assessment Date Assessment LastModified [...] insurance on day of surgery for additional MANAGER BODY hours - Discontinue ibuprofen for at least [...] ICD-10: E55.9 - Vitamin D deficiency, unspecified Not available 07/14/2025 17:02:29 08/07/2025 08/07/2025 1 [...] narcotics with a plan for appropriate weaning. [email or web address] Not available 08/07/2025 14:44:02 Plan of Treatment Reminders Order Date Submit Date Provider Last Modified By Organization Details Last Modified Time Details Appointments RECHECK 15 2024 10:30A Solomon ESCALERA PA-C Not available Not available Not available Lab None recorded. Referral None recorded. Procedures None recorded. Surgeries None recorded. Imaging XR, lumbar spine, 2 view - 326 lumbar 2v 2024 025 [email or web address] [facility] Office, [address], [address], [place], [address], 08/07/2025 14:46:51 XR, foot, 3 or more view 2024 025 [email or web address] [facility] Office, [address], [address], [place], [address], 05/12/2025 08:38:10 CT, lumbar spine, w/o contrast - CT SCAN LUMBAR SPINE WITHOUT CONTRAST FOR LUMBAR STENOSIS WITH BLE RADIC 2024 025 EDEN PRAIRIE [facility] [place], [address], [address], [place], [address], 03/31/2025 06:49:48 MRI, lumbar spine, w/o contrast - mri lumbar spine without contrast for spondylo thesis with neurogeni c claudicat ion 2024 025 [facility] ([facility]), [address], [place], [address], 01/24/2025 15:51:10 Medication Orders cholecalc iferol (vitamin D3) 1,250 mcg (50,000 unit) capsule 2024 025 [email or web address] 8 [id number], [address] [place], [place], [id number], 07/14/2025 17:03:55 cholecalc iferol (vitamin D3) 1,250 mcg (50,000 unit) capsule 2024 025 [facility], [address] [place], [place], [phone], 07/14/2025 11:38:06 Patient TargetsNo targets recorded. Patient InstructionsNo instructions recorded. Reason for Referral None Reported. Results Created Date Observation Date Name Description Value Unit Range Abnormal Flag Note LastModifiedBy Organization Detail LastModifiedTime 01/25/20 25 01/22/2025 MRI, lumba r spine , w/o contr ast [facility] Access ion Number : [id number] Patien t Name: Dion peng Juana Spencera l Record Number : [id number] Date of : 1959 Date of Exam: 2024 Referr ing Physic sarabjit: Johan Arreaga [address] [facility], [place] [address] Exam: MR Lumbar Spine (C-) CPT 51492 Room Descri ption: [facility] 1.5 MRI of the lumbar spine [...] ng of centra l nerve roots. The back padder ior aspect of the thecal sac is flatte devendra by extrad ural lipoma tosis. There is modera te right and mild left-s ided degene rative facet arthro jennifer. Severe right and mild left neural forame n narrow ing with right L2 nerve root compre ssion. L3-L4 level has a mild concen tric disc bulge and a superi mposed small broad- based left back padder ior latera l disc protru stephanie. This [...] a small right subart icular disc protru stephanie, progre ssed since prior study. Modera te [...] Electr onical ly Signed By: Mal gaviria [facility] ([facility]) [address], [place], [address], 01/24/2025 15:52:31 03/31/20 25 03/28/2025 CT, lumba r spine , w/o contr ast No observ ation record ed. [facility] [place] [address], [place], [address], 04/08/2025 08:29:38 03/31/20 25 03/28/2025 CT, lumba r spine , w/o contr ast No observ ation record ed. PEDRO LUIS [facility] [place] [address], [place], [address], 04/08/2025 08:29:35 04/30/20 25 04/30/2025 XR, foot, 3 or more view http:/ [email or web address] ?Encry pted=s hAaTro YD8dLq bEUv6g %2BXZw aYqtaq 0bqfl% 2Fg9IQ a4ajBk vP9nXo QUaueC m3YtLR FvZlgJ JJ8mAn HZtai3 4w9800 AC0Kla HSHWaO kKiQtr MwF INTERFACE [facility] [address], [place], [address], 04/30/2025 13:01:24 04/30/20 25 04/30/2025 XR, foot, 3 or more view [email or web address]:/ [email or web address] ?Encry pted=s hAaTro YD8dLq bEUv6g %2BXZw aYqtaq 0bqfl% 2Fg9IQ a4ajBk vP9nXo QUaueC m3YtLR FvZlgJ JJ8mAn HZtai3 8z0975 AC0Kla HSHWaO kKiQtr MwF INTERFACE [facility] [address], [place], [address], 04/30/2025 13:01:27 07/25/20 25 07/25/2025 XR, lumba r spine , 2 view No observ ation record ed. [email or web address] [facility] [address], [place], [address], 07/25/2025 14:19:49 08/07/20 25 08/07/2025 XR, lumba r spine , 2 view [email or web address]:/ [email or web address] ?Encry pted=s hAaTro YD8dLq bEUv6g %2BXZw aYqtaq 0bqfl% 2Fg9IQ a4ajBk vP9nXo QUaueC m3YtLR FvZlgJ JJ8mAn HZtai3 4b3271 AC0Klb X%2BMV qeuKiQ trMwF INTERFACE [facility] [address], [place], [address], 08/07/2025 11:23:05 08/07/20 25 08/07/2025 XR, lumba r spine , 2 view http:/ [email or web address] ?Encry pted=s hAaTro YD8dLq bEUv6g %2BXZw aYqtaq 0bqfl% 2Fg9IQ a4ajBk vP9nXo QUaueC m3YtLR FvZlgJ JJ8mAn HZtai3 1y1017 AC0Klb X%2BMV qeuKiQ trMwF INTERFACE [facility] [address], [place], [address], 08/07/2025 11:23:07 Result Notes Documentation Provider Name and Address Organization Details Recorded Time Mri, Lumbar Spine, W/o Contrast : [facility] Accession Number: [id number] Patient Name: Juana Lord Date of : 1960 Date of Exam: 01-22-2025 Referring Physician: Johan Murcia [address] [place], [place] [address] Exam: MR Lumbar Spine (C-) CPT 84902 Room Description: [facility] 1.5 MRI of the lumbar spine without [...] Electronically Signed By: Mal braden [place] - [facility] 01/24/2025 15:52:31 Xr, Foot, 3 Or More View : [email or web address] ncrypted=xtIzQibQE8vJzqEDi 6g%6MARpzHizgc3paty%2Fg9IQ l9bnIhkT0hIgYVmemEm0ZcFUUt OgbIQD6xRmSDxxa83m2039ZJ4N laHSHWaOkKiQtrMwF Not Available [facility] 04/30/2025 13:01:25 Xr, Foot, 3 Or More View : [email or web address] ncrypted=kfLjTyxVV8eWidJCw 6g%7PSWqtYwiaa3czqk%2Fg9IQ p8lgYqbR6nAxEUgpoMa5OtFUBs PhvYNG8vFnSJris21e2495NM0B laHSHWaOkKiQtrMwF Not Available [facility] 04/30/2025 13:01:27 Xr, Lumbar Spine, 2 View : [email or web address] ncrypted=ftPqTdsCP6tFgkDMh 6g%2WDUloAogjk9csmw%2Fg9IQ q2muZkeZ1nTsITzctEt0UkSBZx YbmESW1pBtTPfyg61f6775OX8P lbX%2BMVqeuKiQtrMwF Not Available [facility] 08/07/2025 11:23:06 Xr, Lumbar Spine, 2 View : [email or web address] ncrypted=egYvIkmBV4qKsqHQu 6g%3JIVizEnlri7wwsu%2Fg9IQ z7tlKtjH3aZdJJiriFl2WyCDEk TagTCH0eJrZUnmt60v5739KC9J lbX%2BMVqeuKiQtrMwF Not Available [facility] 08/07/2025 11:23:08 Problems Name Problem SNOMED Code Status Onset Date Resolution Date Notes Provider Name and Address Organization Details Recorded Time No complaint s 464594155 Active Status: 'I'; Not Available [facility] 4 09:10:57 Achilles tendiniti s 87771177 Active 2013 Status: 'A'; Not Available [facility] 4 11:12:45 Low back pain 628589622 Active 2013 Problem Code: M54.5; Problem Code Type: ICD-10; Status: 'A'; Not Available [facility] 4 11:12:45 Calcaneal spur of right foot 807893281179 100 Active 2014 Problem Code: M77.31; Problem Code Type: ICD-10; Status: 'A'; Not Available [facility] 4 11:12:45 Spinal stenosis in cervical region 38196663 Active 2023 Johan Murcia MD [address], [place], [address] , [facility] 4 10:53:21 Senile osteoporo sis 96453560 Active 2023 Johan Murcia MD [address], [place], [address] , [facility] 4 10:53:24 Lumbar radiculop athy 950841726 Active 2023 Johan Murcia MD [address], [place], [address] , [facility] 4 10:53:25 Osteoporo sis 90203023 Active 2023 Johan Murcia MD [address], [place], [address] , [facility] 4 10:53:37 Lumbar spondylol isthesis 185901680077 102 Active 2023 [facility] 5 13:50:25 Spinal stenosis of lumbar region 55057086 Active 2024 Johan Murcia MD [address], [place], [address] , [facility] 5 17:20:11 Bilateral hallux valgus Active 2024 Pippa Brock PA-C [address], [place], [address] , [facility] 5 12:30:43 Vitamin D deficienc y 53096532 Active 2024 Johan Murcia MD [address], [place], [address] , [facility] 5 17:02:51 Greater trochante stanley pain syndrome 5959302 Active 2024 Johan Murcia MD [address], [place], [address] , [facility] 5 14:45:14 Problem Notes None recorded. Medical Equipment None Reported. Allergies Allergen ID Allergen Name Allergen Category Reaction Reaction Severity Criticality Documentation Date Start Date Code Code System Note Provider Name and Address Organization Details Recorded Time 119519 Lipitor medicatio n Not available Not available Not available 01/08/20242012 91006 5 RxNorm Not Available [facility] 4 15:13:41 640120 Fosamax medicatio n muscle cramps Not available Not available 07/14/2025 47656 5 RxNorm Ciera braden, [facility] 5 10:31:23 476084 aspirin medicatio n Not available Not available Not available 07/14/2025 1191 RxNorm Ciera braden [place] - [facility] 10:31:34 Medications Name Sig [...] Available Not Available No t Available FreeStyle [place] Lite kit Use to test blood sugar [...] Updated DateTime 01/20/2025 162.56 cm 28.8 kg/m2 68601.52 g Ciera leger [facility] 01/20/2025 14:33:39 Date Recorded Body height Body mass index (BMI) Body weight Provider Name and Address Organization Details Last Updated DateTime 01/29/2025 162.56 cm 28.8 kg/m2 19906.52 g Ciera leger [facility] 01/29/2025 10:23:54 Date Recorded Body height Body mass index (BMI) Body weight Provider Name and Address Organization Details Last Updated DateTime 04/30/2025 162.56 cm 28.8 kg/m2 99932.52 g IGOR MAZARIEGOS [facility] 04/30/2025 12:50:14 Date Recorded Body height Heart rate Body mass index (BMI) Body weight Oxygen saturation Oxygen saturation in Arterial blood by Pulse oximetry Respiratory rate Systolic And Diastolic Provider Name and Address Organization Details Last Updated DateTime 162.56 cm 89 /min 24.2 kg/m2 63831.5 2 g 98 % 98 % 14 /min 140/70 mm[Hg] Ciera leger [facility] 10:43:55 Date Recorded Body height Body mass index (BMI) Body weight Provider Name and Address Organization Details Last Updated DateTime 08/07/2025 162.56 cm 24.2 kg/m2 88468.52 g Sherin centeno [facility] 08/07/2025 11:13:48 Social History Question Answer Notes LastModified by Organizat ion Details LastModified Time Tobacco Smoking Status Former Smoker Ciera braden [facility] 07/14/2025 10:30:45 Are You Blind Or [...] Disease N Heart Trouble N Heart Attack (NH) N Gastrointestinal Disease N Cholesterol N Diabetes [...] ICD10 Code Diagnosis IMO Codes Diagnosis Note [id number] Talha Woods PA-C [place] [address] [place] [address] 08/09/2024 13:48:07 08/28/2024 13:38:51 History of right total knee replacement 3296682232 601025 Z96.339 [id number] Johan Murcia MD [place] [address] [place] [address] 08/29/2024 09:40:17 09/11/2024 19:19:21 Lumbar spondylosis 135088395 M47.816 10338 Osteoporosis 94676017 M8 1.0 41151953 Lumbar spondylolisthesis 7242103895 70071 M43.16 9925254 Lumbar radiculopathy 128 125059 M54.16 83692 Spinal talon nosis in cervical region 02085115 M48.02 98533 [id number] Johan Murcia MD [facility] - [place] [address] [place] [address] 01/20/2025 14:17:31 02/07/2025 15:48:22 Lumbar spondylolisthesis 5803225570 49807 M43.16 9715902 1. Grade 2 L4-5 spondyloli sthesis with [...] region Spinal talon nosis of lumbar region 57562932 M48.062 265791 [id number] Johan Murcia MD [facility] - [place] [address] [place] [address] 01/29/2025 10:02:27 02/17/2025 06:17:56 Lumbar spondylolisthesis 8053952937 79722 M43.16 3182625 Spinal talon nosis of lumbar region 88467027 M48.062 691504 1. Grade 2 L4-5 spondyloli sthesis with [...] stroke, heart attack and . 3. Pre-operat edgar medical clearance required4. Vascular surgery consultati on for anterior approach5. Post-opera tive rehabilita tion plan discussed6 . Will provide lumbar brace post-opera tively to aid in fusion, decrease pain, and minimize opioid use7. Discussed surgical risks including infection, bleeding, CSF leak, non-union, and neurologic al injury8. neon pumper to contact patient for scheduling 9. I will prescribe vitamin D 50,000 units weekly. ICD-10: M43.16 - Spondyloli sthesis, lumbar regionICD- 10: M48.062 - Spinal stenosis, lumbar region with neurogenic claudicati onICD-10: M54.16 - Radiculopa thy, lumbar region Vitamin D deficiency 347 45667 E55.9 75567 [id number] [facility] [place] [address] [place] [address] 04/30/2025 12:39:49 05/12/2025 08:38:10 Pain in bilateral feet 5586257135 0270169 M79.671 M79.394 6028452 Hammer toe 522422658 M20 .41 M20.42 5162930390 Bilateral hallux valgus 0447517233 M20.11 M20.12 3879399829 [id number] MD EM[facility]IA [place] [address] [place] [address] 07/14/2025 10:31:01 07/25/2025 08:27:22 Vitamin D deficiency 89922310 E55.9 51824 Preprocedu ral examination done 1404739860 52539 Z01.818 312547 Spinal talon nosis of lumbar region 77761658 M48.062 540252 Lumbar spondylolisthesis 7543590101 51303 M43.16 4366683 Lumbar radiculopathy 128 831331 M54.16 73547 [id number] MD EMILIA [place] [address] [place] [address] 08/07/2025 11:01:06 08/18/2025 14:56:25 History of operative procedure on lumbar spinal structure 312961132 Z98.890 178550 Greater tr ochanteric pain syndrome 1315446 M70.62 64300790 Health Concerns Section Related Observation LastModified by Organization Detai ls LastModified Time None Recorded Concern Status LastModified by Organization Details LastModified Time None Recorded Advance Directives Directive None Recorded Payers Insurance Date Sequence Insurance Name Policy Number Policy Mckinnon Covered Member ID Mckinnon Member ID Guarantor Name 08/18/2025 1 [facility] - DOS ON OR AFTER 2023 - ONE CARE (MEDICARE REPLACEMENT/ADV ANTAGE - HMO) Juana Carbajal Lord [id number] Juana Lord 08/28/2024 1 [facility] - DOS ON OR AFTER 2023 - [employer] (MEDICARE REPLACEMENT/ADV ANTAGE - HMO) Juana Lord [id number] Juana Lord Notes Date Note Type Note [...] about bone quality. Johan Murcia MD [address], [place], [address], [facility] - [facility] 01/20/2025 17:20:49 01/29/2025 text/html [...] Murcia MD [address], [place], [address], [place] - [facility] 01/29/2025 13:30:57 04/30/2025 text/html [...] our office immediately. Pippa Brock PA-C [address], [place], [address], [facility] 05/02/2025 12:31:11 07/14/2025 text/html [...] prior spine surgeries. Johan Murcia MD [address], [place], [address], [facility] 07/14/2025 17:03:21 08/07/2025 text/html [...] stated they looked good. Johan Murcia MD [address] [place] [address] [address], [place], [address], [facility] - [facility] 08/07/2025 14:45:37 OBGyn Episode No OBEpisode recorded.
--- OUTSIDE RECORDS SUMMARY | 2025-09-09 18:31 | XMS_ITS | Encounter Summary ---
Author Organization [employer] Address [address] [facility] 7t [place] [address] Care Team Providers Care Set Off Blocker Name Role Phone Name, Boo FARLEY Primary Care Provider [phone] Ira Orozco PharmD Unavailable [phone] Reason for Visit * Reason Comments Med Refill Encounter Details Date Type Department Care Team ([facility] Contact Info) Description 08/05/2025 Refill [facility] MEDICINE [address] [place], [place] [phone] Name, MD Boo [address] [place], [place] [phone] Social History Tobacco Use Types Packs/Day Years [...] Description 11/28/2025 9:00 AM EST Office Visit [facility] MEDICINE [address] [place] [address] Name, MD Boo [address] [place] [address] 12/12/2025 10:30 AM EST Telemedicine [facility] MEDICINE [address] [place] [address] Ame Love, GEM 12/16/2025 10:15 AM EST Office Visit [facility] CHC ADULT DENTAL [address] [place] [address] Dangelo Pino 01/14/2026 10:30 AM EDT Office Visit [facility] OPTOMETRY [address] [place] [address] Katlyn Vasquez, OD [address] [place] [address] documented as of this encounter Goals Goal [...] documented as of this encounter Care Teams Set Off Blocker Relationship Specialty Start Date End Date Name, MD Boo [address] [place] [address] PCP - General Family Medicine 04/26/19 Ira Orozco PharmD [address] [place] [address] Pharmacist Internal Medicine 02/03/25 Janessa Fraga 11/23/24 documented as of this encounter
--- OUTSIDE RECORDS SUMMARY | 2025-09-09 18:31 | XMS_ITS | Encounter Summary ---
Author Organization [employer] Address [address] [facility] [address]t [place] [address] Care Team Providers Care Wind Turbine Blade Repair Technician Name Role Phone Name, Boo FARLEY Primary Care Provider [phone] Ira Orozco PharmD Unavailable [phone] Encounter Details Date Type Department Care Team (Latest Contact Info) Description 03/01/2021 Abstract [facility] CONVERSIONS Dental, Provider, DDS Social [...] Description 11/28/2025 9:00 AM EST Office Visit [facility] MEDICINE [address] [place] [address] Name, MD Boo [address] [place] [address] 12/12/2025 10:30 AM EST Telemedicine [facility] MEDICINE [address] [place] [address] Ame Love, GEM 12/16/2025 10:15 AM EST Office Visit [facility] CHC ADULT DENTAL [address] [place] [address] Dangelo Pino 01/14/2026 10:30 AM EDT Office Visit [facility] OPTOMETRY [address] [place] [address] Katlyn Vasquez, OD [address] [place] [address] documented as of this encounter Visit Diagnoses Not on filedocumented in this encounter Care Teams Wind Turbine Blade Repair Technician Relationship Specialty Start Date End Date Name, MD Boo [address] [place] [address] PCP - General Family Medicine 04/26/19 Ira Orozco, Nel[place] [address] [place] [address] Pharmacist Internal Medicine 02/03/25 Janessa Fraga 11/23/24 documented as of this encounter
--- OUTSIDE RECORDS SUMMARY | 2025-09-09 18:31 | XMS_ITS | Data Portability ---
Author Organization [employer] [facility], [facility] Address [address] [place] [address] Care Team Providers Care Library Technician Name Role Phone HIM CCA OTHER Assessment Encounter Date Assessment Date Assessment LastModified by Organization Details LastModified Time 07/04/2024 07/04/2024 I provided real -time medical direction via phone for this encounter and was available for additional phone-based assistance as needed. I have reviewed and agree with the Assessment and Plan as documented by the Design Coordinator. Patient given the opportunity to ask questions. [...] neurologic deficits and ambulates at baseline. Per clinical science liaison on the scene, vital signs are stable [...] Lab urinalysis , dipstick 2023 Misael CLOUD [facility], [address] [place] [address], [phone] 14:03:50 Referral None recorded. Procedures None recorded. [...] Not available Not available Not available 07/03/2024 [id number] 8001 SNOMED Not Available [employer] - production 03:48:22 6004 atorvasta tin medicatio n Not available Not available Not available 07/03/2024 07311 RxNorm PARRISH MEDRANO MD [address] [place] [address],[address], [place], [address], [employer] 4 11:01:18 6005 alendrona te sodium medicatio n Not available Not available Not available 07/03/202412161 2 RxNorm PARRISH MEDRANO MD [address] [place] [address],[address], [place], [address], [employer] 4 11:01:32 Medications Name Sig Start Date [...] for severe pain. Please call and schedule FITNESS SALES CONSULTANT Nurse visit or Chronic Pain Group visit. [...] 4 98 % 98 % 14 /min 88158.8 g 98.4 [degF] 152.4 cm 80 /min [...] ICD10 Code Diagnosis IMO Codes Diagnosis Note 08030 Marlene Velazquez MD Main - [address] [phone] 07/04/2024 09:29:57 07/04/2024 16:20:07 Chronic low back pain 157424390 M54.50 Urinary symptoms [id number] R39.9 Health Concerns Section Related Observation LastModified by Organization Detai ls LastModified Time None Recorded Concern Status LastModified by Organization Details LastModified Time None Recorded Advance Directives Directive None Recorded Payers Insurance Date Sequence Insurance Name Policy Number Policy Mckinnon Covered Member ID Mckinnon Member ID Guarantor Name 07/04/2024 1 [facility] - DOS ON OR AFTER 2023 - DUAL ELIGIBLE - LONG-TERM OPTIONS AND ONE CARE (MEDICARE REPLACEMENT/ADV ANTAGE - HMO) Juana Lord [id number] Juana Lord Notes Date Note Type Note [...] 07/04 instead, visit r/s per member request- Design Coordinator Organization Information for Mark Johnston [facility] Legal Name: [facility] Address: [address] [place] [address], [place] [address], President Mortgage Company: Michael Pizarro MD [facility] No.: [id number] Design Coordinator POC Test Results from Mark Johnston Urine Dipstick (09:17:07) Urine leukocytes: - FRANK Urine nitrites: - NIT Urine urobilinogen: 0.2 URO Urine protein: 30 PRO Urine pH: 5.0 pH Urine blood: - BLO Urine specific gravity: 1.015 SG Urine ketones: - KET Urine bilirubin: - HUMERA Urine glucose: - GLU .................... .................... .................... .................... .................... .................... .................... . Design Coordinator Note From Mark Johnston: Patient alert and [...] dip negative. Pale yellow, clear, no sediment. [facility] advises patient to follow up with PCP if symptoms continue.Red flags, patient education discussed. Design Coordinator Allergies: Aspirin, Penicillin .................... .................... .................... .................... .................... .................... .................... . Disposition: Fulfilled Marlene Velazquez MD [address] [place] [address],[address], [place], [address], [employer] 07/04/2024 10:38:05 OBGyn Episode No OBEpisode recorded.
--- OUTSIDE RECORDS SUMMARY | 2025-09-09 18:31 | XMS_ITS | Encounter Summary ---
Author Organization [employer] Address [address] 7t [place] [address] Care Team Providers Care Ribbon Blocker Name Role Phone Name, Boo FARLEY Primary Care Provider [phone] Ira Orozco PharmD Unavailable [phone] Reason for Visit * Reason Onset Date Comments Med Refill 07/14/2025 Encounter Details Date Type Department Care Team ([facility] Contact Info) Description 07/14/2025 Telephone [facility] MEDICINE [address] [place], [place] [phone] Name, MD Boo [address] [place] [address] Med Refill Social History Tobacco Use Types [...] 800 MG tablet To be sent to: [id number] - [address] documented in this encounter Plan of Treatment Upcoming Encounters Date Type Department Care Team ([facility] st Contact Info) Description 11/28/2025 9:00 AM EST Office Visit [facility] MEDICINE [address] [place] [address] Name, MD Boo [address] [place] [address] 12/12/2025 10:30 AM EST Telemedicine [facility] MEDICINE [address] [place] [address] Ame Love, RN 12/16/2025 10:15 AM EST Office Visit [facility] CHC ADULT DENTAL [address] [place] [address] Dangelo Pino 01/14/2026 10:30 AM EDT Office Visit [facility] OPTOMETRY [address] [place] [address] PedroTravisn, OD [address] [place] [address] documented as of this encounter Goals Goal [...] documented as of this encounter Care Teams Ribbon Blocker Relationship Specialty Start Date End Date Name, MD Boo [address] [place] [address] PCP - General Family Medicine 04/26/19 Ira Orozco PharmD [address] [place] [address] Pharmacist Internal Medicine 02/03/25 Janessa Fraga 11/23/24 documented as of this encounter
--- OUTSIDE RECORDS SUMMARY | 2025-09-09 18:31 | XMS_ITS | Encounter Summary ---
Author Organization [email or web address] Address [address] 7t [place] [address] Care Team Providers Care Data Software Engineer Name Role Phone Name, Boo FARLEY Primary Care Provider [phone] Ira Orozco PharmD Unavailable [phone] Reason for Visit * Reason Onset Date Comments FYI/Letter 10/28/2024 Encounter Details Date Type Department Care Team ([facility] Contact Info) Description 10/28/2024 Telephone [facility] MEDICINE [address] [place], [place] [phone] Name, MD Boo [address] [place] [address] FYI/Letter Social History Tobacco Use Types Packs/Day [...] from pt daughter Dirk regarding prior message. Oil Lease Operator informed her of 7-14 business days for letter to be completed. Dirk verbalized understanding and stated she would like to leave a note as a FYI informing PCP pt is currently admitted at [facility] due to mental health If any questions or concerns contact [phone] * Telephone Encounter - Christen Hurtado - 11/04/2024 9:31 AM EST Tc from status of letter that was asked the day of pt appointment , pt was transfer to medical records as pt was transfer back to call center as per letter she's requesting is not available yet and pt is requesting a callback [phone] * Telephone Encounter - Christen Hurtado - 10/28/2024 1:37 PM EST Tc from [facility] informing that pt was seen by pcp and she will like to inform PCP to add in the letter that was ask for pt to add due to medical condition she requires a first floor apartment [phone] documented in this encounter Plan of Treatment Upcoming Encounters Date Type Department Care Team ([facility] Contact Info) Description 11/28/2025 9:00 AM EST Office Visit [facility] MEDICINE [address] [place] [address] Name, MD Boo [address] [place] [address] 12/12/2025 10:30 AM EST Telemedicine [facility] MEDICINE [address] [place] [address] Ame Love, GEM 12/16/2025 10:15 AM EST Office Visit [facility] CHC ADULT DENTAL [address] [place] [address] Dangelo Pino 01/14/2026 10:30 AM EDT Office Visit [facility] OPTOMETRY [address] [place] [address] Katlyn Vasquez, OD [address] [place] [address] documented as of this encounter Goals Goal [...] documented as of this encounter Care Teams Data Software Engineer Relationship Specialty Start Date End Date Name, MD Boo [address] [place] [address] PCP - General Family Medicine 04/26/19 Ira Orozco, LesleyD [address] [place] [address] Pharmacist Internal Medicine 02/03/25 Janessa Fraga 11/23/24 documented as of this encounter
--- OUTSIDE RECORDS SUMMARY | 2025-09-09 18:31 | XMS_ITS | Encounter Summary ---
Author Organization [employer] Address [address] [facility] 7t [place] [address] Care Team Providers Care Trust Officer Name Role Phone Name, Boo FARLEY Primary Care Provider [phone] Ira Orozco PharmD Unavailable [phone] Reason for Visit * Reason Onset Date Comments PATIENT ASSESSMENT COORDINATOR AGreement renewed today 09/04/2025 Abnormal UTOX 09/04/2025 Encounter Details Date Type Department Care Team ([facility] Contact Info) Description 09/04/2025 Telephone [facility] MEDICINE [address] [place] [address] Ame Love, RN PATIENT ASSESSMENT COORDINATOR AGreement renewed today; Abnormal UTOX Social History [...] - 09/04/2025 11:22 AM EDT Pt had PATIENT ASSESSMENT COORDINATOR Renewal appointment today UTOX Pos MTD, sent [...] Description 11/28/2025 9:00 AM EST Office Visit [address] [address] Name, MD Boo [address] [place] [address] 12/12/2025 10:30 AM EST Telemedicine [facility] MEDICINE [address] [place] [address] Ame Love, RN 12/16/2025 10:15 AM EST Office Visit [facility] CHC ADULT DENTAL [address] [place] [address] Dangelo Pino 01/14/2026 10:30 AM EDT Office Visit [facility] OPTOMETRY [address] [place] [address] Katlyn Vasquez, OD [address] [place] [address] documented as of this encounter Goals Goal Patient Goal Type Associated Problems Recent Progress Patient-Stated? Author Blood Pressure < 140/90 Blood Pressure 168/68( 3:40 PM EST) No Moe Johnson documented as of this encounter Visit Diagnoses Not on filedocumented in this encounter Additional Health Concerns Assessment Noted Time PHQ-9 Depression Total Score: 025 10:47 AM EDT documented as of this encounter Care Teams Trust Officer Relationship Specialty Start Date End Date Name, MD Boo [address] [place] [address] PCP - General Family Medicine 04/26/19 Ira Orozco PharmD [address] [place] [address] Pharmacist Internal Medicine 02/03/25 Janessa Fraga 11/23/24 documented as of this encounter
--- OUTSIDE RECORDS SUMMARY | 2025-09-09 18:31 | XMS_ITS | Encounter Summary ---
Author Organization [employer] Address [address] [facility] 7t [place] [address] Care Team Providers Care Business Developer Name Role Phone Name, Boo FARLEY Primary Care Provider [phone] Ira Orozco PharmD Unavailable [phone] Reason for Visit * Reason Onset Date Comments Medication Question 03/17/2025 FYI 03/17/2025 Encounter Details Date Type Department Care Team ([facility] Contact Info) Description 03/17/2025 Telephone [facility] MEDICINE [address] [place], [place] [phone] Name, MD Boo [address] [place] [address] Medication Question; Social History Tobacco Use Types [...] [facility] [address] [place] [address] Boo Hastings MD [address] [place] [address] 12/12/2025 10:30 AM EST Telemedicine [facility] MED[facility]INE [address] [place] [address] Aem Love, RN 12/16/2025 10:15 AM EST Office Visit [facility] CHC ADULT DENTAL [address] [place] [address] Dangelo Pino 01/14/2026 10:30 AM EDT Office Visit [facility] OPTOMETRY [address] [place] [address] Katlyn Vasquez, OD [address] [place] [address] documented as of this encounter Goals Goal [...] documented as of this encounter Care Teams Business Developer Relationship Specialty Start Date End Date Boo Hastings MD [address] [place] [address] PCP - General Family Medicine 04/26/19 Ira Orozco PharmD [address] [place] [address] Pharmacist Internal Medicine 02/03/25 Janessa Fraga 11/23/24 documented as of this encounter
--- OUTSIDE RECORDS SUMMARY | 2025-09-09 18:31 | XMS_ITS | Encounter Summary ---
Author Organization [employer] Address [address] 7t [place] [address] Care Team Providers Care High School Physical Education Teacher Name Role Phone Name, Boo FARLEY Primary Care Provider [phone] Ira Orozco PharmD Unavailable [phone] Reason for Visit * Reason Onset Date Comments Med Refill 08/19/2025 Encounter Details Date Type Department Care Team ([facility] Contact Info) Description 08/19/2025 Telephone [facility] MEDICINE [address] [place], [place] [phone] Name, MD Boo [address] [place] [address] Med Refill Social History Tobacco Use Types [...] 24 hr capsule To be sent to: -[id number] - [place] - [address] [facility] documented in this encounter Plan of Treatment Upcoming Encounters Date Type Department Care Team ([facility] st Contact Info) Description 11/28/2025 9:00 AM EST Office Visit [facility] MEDICINE [address] [place] [address] Name, MD Boo [address] [facility] [place] [address] 12/12/2025 10:30 AM EST Telemedicine [facility] MEDICINE [address] [place] [address] Ame Love, RN 12/16/2025 10:15 AM EST Office Visit [facility] CHC ADULT DENTAL [address] [place] [address] Dangelo Pino 01/14/2026 10:30 AM EDT Office Visit [facility] OPTOMETRY [address] [place] [address] Katlyn Vasquez, OD [address] [place] [address] documented as of this encounter Goals Goal [...] as of this encounter Care Teams High School Physical Education Teacher Relationship Specialty Start Date End Date Name, MD Boo [address] [place] [address] PCP - General Family Medicine 04/26/19 Ira Orozco PharmD [address] [place] [address] Pharmacist Internal Medicine 02/03/25 Janessa Fraga 11/23/24 documented as of this encounter
== END 2025-09-09 16:09 | disposition home or self-care (01) ==
LOC: HO.HHCL 16:08
PROVIDERS: PCP Internal Medicine Geriatric Medicine; Visit Provider Internal Medicine Geriatric Medicine
DX: M54.9 Dorsalgia, unspecified (principal); G89.29 Other chronic pain; Z98.890 Other specified postprocedural states
CPT/HCPCS: 36415; 80053

== ENCOUNTER 2025-09-10 11:38 | Outpatient (REF) | payer OTHER, SELFPAY ==
--- OUTSIDE RECORDS SUMMARY | 2025-09-09 15:45 | XMS_ITS | Encounter Summary ---
Author Organization [employer] Address [address] [facility] 7t [place] [address] Care Team Providers Care Roll Grinder Name Role Phone Name, Boo FARLEY Primary Care Provider [phone] Ira Orozco PharmD Unavailable [phone] Reason for Visit * Reason Comments Follow-up Encounter Details Date Type Department Care Team ([facility] Contact Info) Description 09/09/2025 3:45 PM EST Office Visit [facility] MEDICINE [address] [place], [place] [phone] Name, MD Boo [address] [place] [address] Acute on chronic back pain (Primary Dx); H/O lumbosacral spine surgery; Rash; Vaccination refused by patient Social History Tobacco Use Types Packs/Day Years [...] AM EDT documented as of this encounter Last Filed Vital Signs Vital Sign Reading Time Taken Comments Blood Pressure 168/68 09/09/2025 3:40 PM EST Pulse 78 09/09/2025 3:40 PM EST Temperature 36.7 C (98 F) 09/09/2025 3:40 PM EST Respiratory Rate 12 09/09/2025 3:40 PM EST Oxygen Saturation 97% 09/09/2025 3:40 PM EST Inhaled Oxygen Concentration - - Weight 65.2 kg (143 lb 12.8 oz) 09/09/2025 3:40 PM EST Height 147.3 cm (4' 10 ) 09/09/2025 3:40 PM EST Body Mass Index 30.05 09/09/2025 3:40 PM EST documented in this encounter Progress Notes * Boo Hastings MD - 09/09/2025 3:45 PM EST Subjective Patient ID: Juana Lord is a 65 y.o. female who presents for Follow-up. Patient comes accompanied by her BOOKSEAMER BLINDSTITCH. She is complaining of low back pain. She has personal historyof lumbar spine DJD, lumbar stenosis. Patient had lumbar spine surgery on July 24. She had L4-5 anterior lumbar fusion with allograft bone. The patient describes resolution of the pain radiatingto the legs since the surgery. She continues to have severe daily low back pain. The patient received postoperative pain medication prescribed by her surgeon for a month. She was initially prescribedhydromorphone. She was then switched to oxycodone. Finally she was given Flexeril. She restarted receiving pain medication from us last month. Unfortunately the dose of Percocet prescribed here priorto surgery is not controlling the pain now. She is prescribed Percocet 5/325 every 8 hours as needed. She has been using acetaminophen 500 mg up to 9 times a day for control of the pain in addition to the Percocet. The patient is also on Lyrica 150 mg twice a day. Review of Systems Constitutional: Negative for chills and fever. HENT: Negative for sore throat. Respiratory: Negative for cough, shortness of breath and wheezing. Cardiovascular: Negative for chest pain, palpitations and leg swelling. Gastrointestinal: Negative for abdominal pain. Musculoskeletal: Positive for back pain. Neurological: Negative for weakness and numbness. Objective Vitals: 09/09/25 1540 BP: (!) 168/68 BP Location: Left arm Patient Position: Sitting BP Cuff Size: Adult Pulse: 78 Resp: 12 Temp: 98 ??F (36.7 ??C) TempSrc: Temporal SpO2: 97% Weight: 143 lb 12.8 oz (65.2 kg) Height: 4' 10 (1.473 m) Physical Exam Vitals reviewed: The patient comes using a walker. Constitutional: General: She is not in acute distress. Appearance: Normal appearance. Cardiovascular: Rate and Rhythm: Normal rate and regular rhythm. Heart sounds: No murmur heard. No gallop. Pulmonary: Effort: Pulmonary effort is normal. No respiratory distress. Breath sounds: Normal breath sounds. No wheezing. Musculoskeletal: Right lower leg: No edema. Left lower leg: No edema. Skin: Comments: She has well-healed surgical scars in the lumbar spine and lower abdomen. She has a rash on the lower abdomen consistent with tinea corporis. Neurological: General: No focal deficit present. Mental Status: She is alert. Motor: No weakness. Assessment/Plan Diagnoses and all orders for this visit: Acute on chronic back pain Comments: I explained to the patient she is using too much Tylenol. I recommended to stop using OTC acetaminophen altogether. I agreed to temporarily increase her dose of Percocet 5/325 to 1-1/2 tablets 3 times a day as needed. Continue current dose of Lyrica Reevaluation in 8 weeks Check CMP Orders: - Comprehensive Metabolic Panel; Future H/O lumbosacral spine surgery Comments: Patient had lumbar spine surgery on July 24. She had L4-5 anterior lumbar fusion with allograft bone. Orders: - Comprehensive Metabolic Panel; Future Rash Comments: I recommended clotrimazole/betamethasone cream to be applied on the lower abdomen Vaccination refused by patient Comments: She refused any vaccination today. Other orders - clotrimazole-betamethasone (Lotrisone) cream; Apply topically 2 times daily for 28 days. Future Appointments Date Time Provider Department Center 11/28/2025 9:00 AM Boo Hastings MD [facility] 12/12/2025 10:30 AM Ame Love RN [facility] 12/16/2025 10:15 AM Dangelo Pino [facility] ADL DEN [facility] 01/14/2026 10:30 AM Katlyn Vasquez OD VISION [facility] documented in this encounter Plan of Treatment Upcoming Encounters Date Type Department Care Team (Late st Contact Info) Description 11/28/2025 9:00 AM EST Office Visit [facility] MEDICINE [address] [place] [address] Boo Hastings MD [address] [place] [address] 12/12/2025 10:30 AM EST Telemedicine [facility] MEDICINE [address] [place] [address] Ame Love RN 12/16/2025 10:15 AM EST Office Visit [facility] ADULT DENTAL [address] [place] [address] Dangelo Pino 01/14/2026 10:30 AM EDT Office Visit [facility] OPTOMETRY [address] [place] [address] Katlyn Vasquez, OD [address] [place] [address] documented as of this encounter Goals Goal Patient Goal Type Associated Problems Recent Progress Patient-Stated? Author Blood Pressure < 140/90 Blood Pressure 168/68( 025 3:40 PM EST) No Moe Johnson documented as of this encounter Procedures Procedure Name Priority Date/Time Associated Diagnosis Comments COMPREHENSIVE METABOLIC PANEL Routine 09/09/2025 4:15 PM EST Acute on chronic back pain H/O lumbosacral spine surgery documented in this encounter Results * Comprehensive Metabolic Panel (09/09/2025 4:15 PM EST) Sodium 140 135 - 145 mmol/L [facility] Potassium 4.0 3.3 - 5.1 mmol/L [facility] Chloride 105 96 - 108 mmol/L [facility] Carbon Dioxide 27 22 - 29 mmol/L [facility] Anion Gap 12 12 - 20 [facility] Urea Nitrogen (BUN) 13 9 - 16 mg/dL [facility] Creatinine, Serum 0.60 0.5 - 1.4 mg/dL [facility] Estimated Glomerular Filt Rate >60 [facility] Comment:Chronic Kidney Disea se: Estimated GFR < 60 mL/min/1.03b0Ntdndy Kidney Disease: Estimated GFR < 15 mL/min/1.73m2 Glucose 92 60 - 115 mg/dL [facility] Calcium 9.3 8.4 - 10.2 mg/dL [facility] Bilirubin, Total 0.3 0.0 - 1.0 mg/dL [facility] Aspartate Amino Transferase 20 5 - 31 U/L [facility] Alanine Aminotransferase 10 0 - 31 U/L [facility] Total Protein 7.3 6.5 - 8.0 g/dL [facility] Albumin Level 4.7 3.5 - 5.0 g/dL [facility] Alkaline Phosphatase 89 39 - 117 U/L [facility] Blood Venous blood specimen / Unknown 09/09/2025 4:15 PM EST 09/09/2025 5:54 PM EST Boo Hastings MD LAB BLOOD ORDERABLES Final Resul t [facility] [address] [place] [address] [phone] documented in this encounter Visit Diagnoses Diagnosis Acute on chronic back pain- Primary H/O lumbosacral spine surgery Rash Rash and other nonspecific skin eruption Vaccination refused by patient documented in this encounter Additional Health Concerns Assessment Noted Time PHQ-9 Depression Total Score: 10 025 10:47 AM EDT documented as of this encounter Care Teams Roll Grinder Relationship Specialty Start Date End Date Name, MD Boo [address] [place] [address] PCP - General Family Medicine 04/26/19 Ira Orozco, LesleyD [address] [place] [address] Pharmacist Internal Medicine 02/03/25 Janessa Fraga 11/23/24 documented as of this encounter
--- OUTSIDE RECORDS SUMMARY | 2025-09-10 14:19 | XMS_ITS | Encounter Summary ---
Author Organization [employer] Address [address] 7t [place] [address] Care Team Providers Care Rush Seater Name Role Phone Name, Boo FARLEY Primary Care Provider [phone] Ira Orozco PharmD Unavailable [phone] Reason for Visit * Reason Comments Med Refill Encounter Details Date Type Department Care Team ([facility] Contact Info) Description 05/13/[address] [facility] CHC MED & PEDS [address] [place], [place] [phone] Name, MD Boo [address] [place] [address] Lumbar radiculopathy Social History Tobacco Use Types [...] the past 12 months, has t he [employer], gas, oil or water company threatened to [...] television Not at all 05/16/2024 11:21 AM lAiza Trinidad Moving or speaking so slowly that [...] 11/28/2025 9:00 AM EST Office Visit [facility] MEDICINE [address] [place] [address] Name, MD Boo [address] [place] [address] 12/12/2025 10:[address] [facility] MEDICINE [address] [place] [address] Ame Love RN 12/16/2025 10:15 AM EST Office Visit [facility] CHC ADULT DENTAL [address] [place] [address] Dangelo Pino 01/14/2026 10:30 AM EDT Office Visit [facility] OPTOMETRY [address] [place] [address] Katlyn Vasquez, LESLEY [address] [place] [address] documented as of this encounter Goals Goal [...] documented as of this encounter Care Teams Rush Seater Relationship Specialty Start Date End Date Name, MD Boo [address] [place] [address] PCP - General Family Medicine 04/26/19 Ira Orozco PharmD [address] [place] [address] Pharmacist Internal Medicine 02/03/25 Janessa Fraga 11/23/24 documented as of this encounter
--- OUTSIDE RECORDS SUMMARY | 2025-09-10 14:20 | XMS_ITS | Encounter Summary ---
Author Organization [employer] Address [address] [facility] 7t [place] [address] Care Team Providers Care Service Desk Lead Name Role Phone Name, Boo FARLEY Primary Care Provider [phone] Ira Orozco PharmD Unavailable [phone] Reason for Visit * Reason Comments Med Refill Encounter Details Date Type Department Care Team ([facility] Contact Info) Description 04/17/2023 Refill [facility] [address] [place], [place] [phone] Nazia Curiel FNP Acute pain of right [...] Upcoming Encounters Date Type Department Care Team ([facility] Contact Info) Description 11/28/2025 9:00 AM EST Office Visit [facility] MEDICINE [address] [place] [address] Name, MD Boo [address] [place] [address] 12/12/2025 10:30 AM EST Telemedicine [facility] MEDICINE [address] [place] [address] Ame Love, RN 12/16/2025 10:15 AM EST Office Visit [facility] CHC ADULT DENTAL [address] [place] [address] Dangelo Pino 01/14/2026 10:30 AM EDT Office Visit [facility] OPTOMETRY [address] [place] [address] Katlyn Vasquez, OD [address] [place] [address] documented as of this encounter Visit Diagnoses Diagnosis Acute pain of right shoulder documented in this encounter Additional Health Concerns Assessment Noted Time PHQ-9 Depression Total Score: 6 10/25/20 22 4:10 PM EST documented as of this encounter Care Teams Service Desk Lead Relationship Specialty Start Date End Date Name, MD Boo [address] [place] [address] PCP - General Family Medicine 04/26/19 Ira Orozco PharmD [address] [place] [address] Pharmacist Internal Medicine 02/03/25 Janessa Fraga 11/23/24 documented as of this encounter
--- OUTSIDE RECORDS SUMMARY | 2025-09-10 14:20 | XMS_ITS | Encounter Summary ---
Author Organization [employer] Address [address] [facility] 7t [place] [address] Care Team Providers Care Multi Share Program Coordinator Name Role Phone Name, Boo FARLEY Primary Care Provider Ira Orozco PharmD Unavailable [phone] Reason for Visit * Reason Comments Med Refill Encounter Details Date Type Department Care Team ([facility] Contact Info) Description 05/10/2023 Refill [facility] MED[facility]INE [address] [place], [place] [phone] Name, MD Boo [address] [place] [address] Moderate persistent asthma without complication; Chronic pain [...] Upcoming Encounters Date Type Department Care Team ([facility] Contact Info) Description 11/28/2025 9:00 AM EST Office Visit [facility] MEDICINE [address] [place] [address] Name, MD Boo [address] [place] [address] 12/12/2025 10:30 AM EST Telemedicine [facility] MEDICINE [address] [place] [address] Ame Love, GEM 12/16/2025 10:15 AM EST Office Visit [facility] CHC ADULT DENTAL [address] [place] [address] Dangelo Pino 01/14/2026 10:30 AM EDT Office Visit [facility] OPTOMETRY [address] [place] [address] PedroTravis santosn, OD [address] [place] [address] documented as of this encounter Visit Diagnoses Diagnosis Moderate persistent asthma without complication Chronic pain syndrome documented in this encounter Additional Health Concerns Assessment Noted Time PHQ-9 Depression Total Score: 6 10/25/20 22 4:10 PM EST documented as of this encounter Care Teams Multi Share Program Coordinator Relationship Specialty Start Date End Date Name, MD Boo [address] [place] [address] PCP - General Family Medicine 04/26/19 Ira Orozco PharmD [address] [place] [address] Pharmacist Internal Medicine 02/03/25 Janessa Fraga 11/23/24 documented as of this encounter
--- OUTSIDE RECORDS SUMMARY | 2025-09-10 14:20 | XMS_ITS | Encounter Summary ---
Author Organization [employer] Address [address] [facility] 7t [place] [address] Care Team Providers Care Tool Design Checker Name Role Phone Name, Boo FARLEY Primary Care Provider [phone] Ira Orozco PharmD Unavailable [phone] Reason for Visit * Reason Onset Date Comments appt/disconnected call 08/23/2024 Encounter Details Date Type Department Care Team ([facility] Contact Info) Description 08/23/2024 Telephone [facility] CHC ADULT DENTAL [address] [place] [address] Keegan Curtis 505 [place] [address] appt/disconnected call Social History Tobacco Use Types [...] treatment Placed patient on hold to contact [facility] for[facility]. Patient disconnected call. Appts offered by [facility] were 08/30 at 9 or [...] Upcoming Encounters Date Type Department Care Team ([facility] st Contact Info) Description 11/28/2025 9:00 AM EST Office Visit [facility] MEDICINE [address] [place] [phone] Name, MD Boo [address] [place] [address], [place] [address] 12/12/2025 10:30 AM EST Telemedicine [facility] MEDICINE [address] [place] [address] Ame Love, RN 12/16/2025 10:15 AM EST Office Visit [facility] CHC ADULT DENTAL [address] [place] [address] Dangelo Pino 01/14/2026 10:30 AM EDT Office Visit [facility] OPTOMETRY [address] [place] [address] PedroTravis santosn, OD [address] [place] [address] documented as of this encounter Goals Goal [...] documented as of this encounter Care Teams Tool Design Checker Relationship Specialty Start Date End Date Name, MD Boo [place], [place] PCP - General Family Medicine 04/26/19 Ira Orozco PharmD [address] [place] [address] Pharmacist Internal Medicine 02/03/25 Janessa Fraga 11/23/24 documented as of this encounter
--- OUTSIDE RECORDS SUMMARY | 2025-09-10 14:20 | XMS_ITS | Encounter Summary ---
Author Organization [employer] Address [address] [facility] 7t [place] [address] Care Team Providers Care Ironworker Apprentice Name Role Phone Name, Boo FARLEY Primary Care Provider [phone] Ira Orozco PharmD Unavailable [phone] Reason for Visit * Reason Comments Med Refill Encounter Details Date Type Department Care Team ([facility] Contact Info) Description 04/21/2023 Refill [facility] MED[facility]INE [address] [place], [place] [phone] Name, MD Boo [address] [place] [address] Moderate persistent asthma without complication Social History [...] 9:00 AM EST Office Visit [facility] MEDICINE [address] [place] [address] Name, MD Boo [address] [place] [address] 12/12/2025 10:30 AM EST Telemedicine [facility] MEDICINE [address] [place] [address] Ame Love, RN 12/16/2025 10:15 AM EST Office Visit [facility] CHC ADULT DENTAL [address] [place] [address] Dangelo Pino 01/14/2026 10:30 AM EDT Office Visit [facility] OPTOMETRY [address] [place] [address] Katlyn Vasquez, OD [address] [place] [address] documented as of this encounter Visit Diagnoses Diagnosis Moderate persistent asthma without complication documented in this encounter Additional Health Concerns Assessment Noted Time PHQ-9 Depression Total Score: 6 10/25/20 22 4:10 PM EST documented as of this encounter Care Teams Ironworker Apprentice Relationship Specialty Start Date End Date Name, MD Boo [address] [place] [address] PCP - General Family Medicine 04/26/19 Ira Orozco PharmD [address] [place] [address] Pharmacist Internal Medicine 02/03/25 Janessa Fraga 11/23/24 documented as of this encounter
--- OUTSIDE RECORDS SUMMARY | 2025-09-10 14:20 | XMS_ITS | Encounter Summary ---
Author Organization [employer] Address [address] [facility] 7t [place] [address] Care Team Providers Care Community Engagement Coordinator Name Role Phone Name, Boo FARLEY Primary Care Provider [phone] Ira Orozco PharmD Unavailable [phone] Encounter Details Date Type Department Care [...] Description 11/28/2025 9:00 AM EST Office Visit [facility] MEDICINE [address] [place] [address] Name, MD Boo [address] [place] [address] 12/12/2025 10:30 AM EST Telemedicine [facility] MEDICINE [address] [place] [address] Ame Love, GEM 12/16/2025 10:15 AM EST Office Visit [facility] CHC ADULT DENTAL [address] [place] [address] Dangelo Pino 01/14/2026 10:30 AM EDT Office Visit [facility] OPTOMETRY [address] [place] [address] Katlyn Vasquez, OD [address] [place] [address] documented as of this encounter Goals Goal [...] documented as of this encounter Care Teams Community Engagement Coordinator Relationship Specialty Start Date End Date Name, MD Boo [address] [place] [address] PCP - General Family Medicine 04/26/19 Ira Orozco, LesleyD [address] [place] [address] Pharmacist Internal Medicine 02/03/25 Janessa [facility] 11/23/24 documented as of this encounter
--- OUTSIDE RECORDS SUMMARY | 2025-09-10 14:20 | XMS_ITS | Encounter Summary ---
Author Organization [employer] Address [address] [facility] 7t [place] [address] Care Team Providers Care Corrections Nurse Name Role Phone Name, Boo FARLEY Primary Care Provider [phone] Ira Orozco PharmD Unavailable [phone] Reason for Visit * Reason Comments Med Refill Encounter Details Date Type Department Care Team ([facility] Contact Info) Description 12/21/2023 Refill [facility] MEDICINE [address] [place], [place] [phone] Penny Kang MD [address] [place] [address] Lumbar radiculopathy Social History Tobacco Use Types [...] 9:00 AM EST Office Visit [facility] MEDICINE [address] [place] [address] Boo Hastings MD [address] [place] [address] 12/12/2025 10:30 AM EST Telemedicine [facility] MEDICINE [address] [place] [address] Ame Love RN 12/16/2025 10:15 AM EST Office Visit [facility] CHC ADULT DENTAL [address] [place] [address] Dangelo Pino 01/14/2026 10:30 AM EDT Office Visit [facility] OPTOMETRY [address] [place] [address] Katlyn Vasquez, OD [address] [place] [address] documented as of this encounter Goals Goal [...] documented as of this encounter Care Teams Corrections Nurse Relationship Specialty Start Date End Date Name, MD Boo [address] [place] [address] PCP - General Family Medicine 04/26/19 Ira Orozco, LesleyD [address] [place] [address] Pharmacist Internal Medicine 02/03/25 Janessa Fraga 11/23/24 documented as of this encounter
--- OUTSIDE RECORDS SUMMARY | 2025-09-10 14:20 | XMS_ITS | Encounter Summary ---
Author Organization [employer] Address [address] [facility] 7t [place] [address] Care Team Providers Care Drying Oven Tender Name Role Phone Name, Boo FARLEY Primary Care Provider [phone] Ira Orozco PharmD Unavailable [phone] Reason for Visit * Reason Comments Med Refill Encounter Details Date Type Department Care Team ([facility] Contact Info) Description 02/14/2024 Refill [facility] MEDICINE [address] [place], [place] [phone] Name, MD Boo [address] [place], [place] [phone] Fibromyalgia Social History Tobacco Use Types Packs/Day [...] Description 11/28/2025 9:00 AM EST Office Visit [facility] MEDICINE [address] [place] [address] Boo Hastings MD [address] [place] [address] 12/12/2025 10:30 AM EST Telemedicine [facility] MEDICINE [address] [place] [address] Ame Love RN 12/16/2025 10:15 AM EST Office Visit [facility] CHC ADULT DENTAL [address] [place] [address] Dangelo Pino 01/14/2026 10:30 AM EDT Office Visit [facility] OPTOMETRY [address] [place] [address] Katlyn Vasquez, OD [address] [place] [address] documented as of this encounter Goals Goal [...] documented as of this encounter Care Teams Drying Oven Tender Relationship Specialty Start Date End Date Boo Hastings MD [address] [place] [address] PCP - General Family Medicine 04/26/19 Ira Orozco, Nelida [address] [place] [address] Pharmacist Internal Medicine 02/03/25 Janessa Fraga 11/23/24 documented as of this encounter
--- OUTSIDE RECORDS SUMMARY | 2025-09-10 14:20 | XMS_ITS | Encounter Summary ---
Author Organization [employer] Address [address] [facility] [address] 7t [place] [address] Care Team Providers Care Delivery Consultant Name Role Phone Name, Boo FARLEY Primary Care Provider [phone] Ira Orozco PharmD Unavailable [phone] Reason for Visit * Reason Onset Date Comments PT-1 11/24/2023 Encounter Details Date Type Department Care Team ([facility] Contact Info) Description 11/24/2023 Telephone [facility] MEDICINE [address] [place], [place] [phone] Name, MD Boo [address] [place] [address] PT-1 Social History Tobacco Use Types Packs/Day [...] insurance . Which is [employer] due to [facility] not covering transportation . Please call daughter at [phone] * Telephone Encounter - Pippa Wilson - 11/24/2023 11:57 AM EST We are unable to process PT1 for [facility]. Pt would have to contact insurance to request transportation services. * Telephone Encounter - Andrew Emery - 11/24/2023 11:08 AM EST PT1 needed Date: 12/06/2023 Time 2:45 Visits: 3 Address: [address], [place] Facility: [facility] Wheel Chair: no Manager Case Needed: no PT1 needed Date: 12/08/2023 Time: 11:00 Visits: 3 Address: [address], [place] Facility: [facility] Wheel Chair: No Manager Case Needed: No PT1 needed Date: 12/12/2023 Time: 3:45 Visits: 3 Address: [address] [place] [address] Facility: [facility] Wheel Chair: no Manager Case Needed: no documented in this encounter Plan of Treatment Upcoming Encounters Date Type Department Care Team (Late st Contact Info) Description 11/28/2025 9:00 AM EST Office Visit [facility] MEDICINE [address] [place] [address] NameBoo MD [address] [place] [address] 12/12/2025 10:30 AM EST Telemedicine [facility] MEDICINE [address] [place] [address] Ame Love RN 12/16/2025 10:15 AM EST Office Visit [facility] CHC ADULT DENTAL [address] [place], [place] [phone] Dangelo Pino 01/14/2026 10:30 AM EDT Office Visit [facility] OPTOMETRY [address] [place], [place] [phone] Katlyn Vasquez, OD [address] [place] [address] documented as of this encounter Goals Goal [...] documented as of this encounter Care Teams Delivery Consultant Relationship Specialty Start Date End Date Boo Hastings MD [address] [place] [address] PCP - General Family Medicine 04/26/19 Ira Orozco PharmD [address] [place] [address] Pharmacist Internal Medicine 02/03/25 Janessa Fraga 11/23/24 documented as of this encounter
--- OUTSIDE RECORDS SUMMARY | 2025-09-10 14:20 | XMS_ITS | Encounter Summary ---
Author Organization [employer] Address [address] [facility] 7t [place] [address] Care Team Providers Care Data Specialist Name Role Phone Name, Boo FARLEY Primary Care Provider [phone] Ira Orozco PharmD Unavailable [phone] Encounter Details Date Type Department Care Team ([facility] Contact Info) Description 04/18/2023 Abstract [facility] MEDICINE [address] [place] [address] Name, MD Boo [address] [place] [address] Social History Tobacco Use Types Packs/Day Years [...] Department Care Team ([facility] Contact Info) Description 11/28/2025 9:00 AM EST Office Visit [facility] MEDICINE [address] [place] [address] Name, MD Boo [address] [place] [address] 12/12/2025 10:30 AM EST Telemedicine [facility] MEDICINE [address] [place] [address] Ame Love RN 12/16/2025 10:15 AM EST Office Visit [facility] CHC ADULT DENTAL [address] [place], [place] [phone] Dangelo Pino 01/14/2026 10:30 AM EDT Office Visit [facility] OPTOMETRY [address] [place], [place] [phone] Katlyn Vasquez, OD [address] [place] [address] documented as of this encounter Procedures Procedure [...] as of this encounter Care Teams Data Specialist Relationship Specialty Start Date End Date Name, [place] [address] PCP - General Family Medicine 04/26/19 Ira Orozco PharmD [address] [place] [address] Pharmacist Internal Medicine 02/03/25 Janessa Fraga 11/23/24 documented as of this encounter
--- OUTSIDE RECORDS SUMMARY | 2025-09-10 14:20 | XMS_ITS | Clinical Summary ---
Author Organization [employer] Address [address] 7[address] [place] [address] Care Team Providers Care Drum Handler Name Role Phone Name, Boo FARLEY Primary Care Provider [phone] Ira Orozco PharmD Unavailable [phone] Allergies Active Allergy Reactions Criticality Noted [...] complication, without long-term current use of insulin ([facility]) Use to test blood sugar once times daily 100 each 12 01/07/20 25 2025 Active Blood Glucose Monitoring Suppl (FreeStyle [place] Lite) w/Device kitIndications:T ype 2 diabetes mellitus without complication, without long-term current use of insulin ([facility]) Use to test blood sugar once [...] OTC Active cholecalciferol (Vitamin D-3) 1.25 MG (14943 UT) capsule Take 50,000 Units by mouth [...] different neurologist. Her eye doctor is at [facility]. Osteopenia 11/22/2007 Depressive disorder 06/18/2007 Overview (05/22/2023): F/u [facility] counseling Dr Jurado Assessment & Plan [...] Acute exacerbation of COPD w ith asthma ([facility]) 09/10/2024 05/16/2025 Assessment & Plan (09/10/2024 [...] to Enterococcus 09/22/2023 09/22/2023 05/16/2025 COPD exacerbation ([facility]) 09/20/2023 05/16/2025 Assessment & Plan (09/20/2023 4:19 PM EST): -Rx augmenting and prednisone given 3 weeks of COPD exacerbation and continued ronchi and wheeze after treatment. 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 Paratracheal lymphadenopathy 01/17/2020 05/16/2025 Opiate dependence ([facility]/HCC) 01/15/2019 05/16/2025 Overview (05/22/2023): On suboxone Weight gain 08/22/2008 05/22/2023 Encounters Date Type Department Care Team Description 09/09/2025 3:45 PM EST Office Visit [facility] [place] [address] Boo Hastings MD Acute on chronic back pain (Primary Dx); H/O lumbosacral spine surgery; Rash; Vaccination refused by patient 09/09/2025 Travel 09/04/2025 11:30 AM EDT Clinical Support [facility] [address] [place] [address] Ame Love, GEM Long-term current use of opiate analgesic (Primary Dx) 09/04/2025 Telephone [facility] [address] [place] [address] Ame Love, RN VALIDATION SPECIALIST AGreement renewed today; Abnormal UTOX 09/04/2025 Travel 09/04/2025 Refill [facility] [address] [place] [address] Boo Hastings MD Lumbar radiculopathy 08/27/2025 Refill [facility] [address] [place] [address] Boo Hastings MD Migraine without status migrainosus, not intractable, unspecified migraine type 08/26/2025 Telephone [facility] [address] [place] [address] Boo Hastings MD call back 08/26/2025 Refill [facility] [address] [place] [address] Boo Hastings MD Chronic right shoulder pain; Lumbar radiculopathy; Chronic pain syndrome 08/19/2025 Telephone [facility] [address] [place] [address] Boo Hastings MD Med Refill 08/15/2025 Refill [facility] [address] [place] [address] Boo Hastings MD 08/12/2025 Refill [facility] [address] [place] [address] Boo Hastings MD Moderate persistent asthma without complication 08/08/2025 Refill [facility] [address] [place] [address] Boo Hastings MD Lumbar radiculopathy 08/05/2025 Refill [facility] [address] [place] [address] Boo Hastings MD 07/29/2025 Telephone [facility] [address] [place] [address] Shelbi Solomon MA 07/29/2025 Telephone [facility] [address] [place] [address] Boo Hastings MD DEC RECALL 07/29/2025 Patient Outreach [facility] [address] [place] [address] Boo Hastings MD Transition Of Care (Tcm) (HDF unscheduled) 07/21/2025 Telephone [facility] [address] [place] [address] Boo Hastings MD Medication Question 07/21/2025 Telephone [facility] [address] [place] [address] Boo Hastings MD Durable Medical Equipment 07/14/2025 Telephone [facility] [address] [place] [address] Boo Hastings MD Med Refill 07/14/2025 Telephone [facility] [address] [place] [address] Boo Hastings MD Prior Authorization 07/14/2025 Telephone [facility] [address] [place] [address] Boo Hastings MD Med Refill 07/14/2025 Telephone [facility] [address] [place] [address] Boo Hastings MD Durable Medical Equipment 07/14/2025 Refill [facility] [address] [place] [address] Boo Hastings MD Lumbar radiculopathy 07/08/2025 Refill [facility] [address] [place] [address] Bushra Frey NP 07/08/2025 Refill [facility] [address] [place] [address] Boo Hastings MD Chronic right shoulder pain; Lumbar radiculopathy; Chronic pain syndrome 07/01/2025 Refill [facility] [address] [place] [address] Boo Hastings MD 06/26/2025 10:00 AM EDT Office Visit [facility] [address] [place] [address] Keegan Curtis 06/24/2025 Telephone [facility] [address] [place] [address] Lexii Skinner MA OCT RECALLS 06/23/2025 Refill [facility] [address] [place] [address] Boo Hastings MD Migraine without status migrainosus, not intractable, unspecified migraine type 06/20/2025 Telephone [facility] [address] [place] [address] Boo Hastings MD Medication Question 06/13/2025 Telephone [facility] [address] [place] [address] Boo Hastings MD FUSING MACHINE TENDER hours 06/13/2025 Telephone [facility] [address] [place] [address] Boo Hastings MD Nurse Triage 06/12/2025 10:00 AM EDT Office Visit [facility] [address] [place] [address] Dangelo Pino Dental calculus (Primary Dx) 06/11/2025 Refill [facility] [address] [place] [address] Boo Hastings MD Lumbar radiculopathy 06/10/2025 Refill [facility] [address] [place] [address] Boo Hastings MD Lumbar radiculopathy 06/10/2025 Refill [facility] [address] [place] [address] NameBoo MD Chronic right shoulder pain; Lumbar radiculopathy; Chronic pain syndrome 06/10/2025 Telephone [facility] [address] [place] [address] Boo Hastings MD Med Refill 06/10/2025 Telephone [facility] [address] [place] [address] NameBoo MD Durable Medical Equipment from Last 3 Months Immunizations Immunization Administration Dates Next Due Influenza injectable quadriv alent IIV4 with preservative 07/25/2023,01/01/2018,08/29/2016 Influenza injectable quadriv alent preservative free 09/28/2021,10/20/2020,11/26/2019 Influenza, IIV3, injectable 07/17/2015,1 ,07/17/2013,07/24,08/17/2011,09/19/2010,10/12/2009 ,08/22/2008,09/14/2007 Influenza, intradermal, quad rivalent, preservative free 07/17/2015,08/13/2014,07/17/2013,07/24,08/17/2011,10/12/2009,08/22/2008 ,09/14/2007 Novel [id number], preservative-free 10/12/2009 Pfizer Covid-19 Vaccine 12+ 02/03/2025,1 [...] Description 11/28/2025 9:00 AM EST Office Visit [facility] [address] [place] [address] Name, MD Boo [address] [place] [address] 12/12/2025 10:30 AM EST Telemedicine [facility] [address] [place] [address] Ame Love RN 12/16/2025 10:15 AM EST Office Visit [facility] [address] [place] [address] Dangelo Pino 01/14/2026 10:30 AM EDT Office Visit [facility] [address] [place] [address] Pedro, Katlyn, OD [address] [place] [address] Health Maintenance Due Date Last Done Comments [...] complication, without long-term current use of insulin ([facility]) ALBUMIN, RANDOM URINE W/CREATININE Routine 02/06/2025 9:20 AM EDT LIPID PANEL, STANDARD Routine 02/06/2025 9:18 AM EDT INTRAORAL - COMPLETE SERIES OF RADIOGRAPHIC IMAGES Routine 05/29/2024 1:00 PM EDT Dental calculus Secondary dental caries associated with failed or defective dental quaker HM MAMMOGRAPHY Routine 04/08/2024 PAP SMEAR Routine 09/04/2023 11:17 AM EDT HM COLONOSCOPY Routine 08/02/2022 10:14 AM EDT ZZZ HISTORICAL HPV MRNA E6/E7 Routine 07/25/2017 9:30 AM EDT from Last 3 Months or Most Recently Relevant to Health Maintenance Results * Comprehensive Metabolic Panel (09/09/2025 4:15 PM EST) Sodium 140 135 - 145 mmol/L [facility] Potassium 4.0 3.3 - 5.1 mmol/L [facility] Chloride 105 96 - 108 mmol/L [facility] Carbon Dioxide 27 22 - 29 mmol/L [facility] Anion Gap 12 12 - 20 [facility] Urea Nitrogen (BUN) 13 9 - 16 mg/dL [facility] Creatinine, Serum 0.60 0.5 - 1.4 mg/dL [facility] Estimated Glomerular Filt Rate >60 [facility] Comment:Chronic Kidney Disea se: Estimated GFR < 60 mL/min/1.12u4Vacpnx Kidney Disease: Estimated GFR < 15 mL/min/1.73m2 Glucose 92 60 - 115 mg/dL [facility] Calcium 9.3 8.4 - 10.2 mg/dL [facility] Bilirubin, Total 0.3 0.0 - 1.0 mg/dL [facility] Aspartate Amino Transferase 20 5 - 31 U/L [facility] Alanine Aminotransferase 10 0 - 31 U/L [facility] Total Protein 7.3 6.5 - 8.0 g/dL [facility] Albumin Level 4.7 3.5 - 5.0 g/dL [facility] Alkaline Phosphatase 89 39 - 117 U/L [facility] Blood Venous blood specimen / Unknown 09/09/2025 4:15 PM EST 09/09/2025 5:54 PM EST us Boo Hastings MD LAB BLOOD ORDERABLES Final Resul t [facility] [address] [place] [phone] * (ABNORMAL) POCT COY-14 Urine Drug [...] Negative ng/mL Oxycodone Screen, Urine Positive(A) Negative Comment:VALIDATION SPECIALIST pt on Percocet Phencyclidine (PCP), Urine Negative Negative Propoxyphene, Urine Negative Negative Fentanyl, Urine Negative Negative Urine Urine specimen obtained by clean catch procedure / Unknown 09/04/2025 11:17 AM EDT Ame John RN - 09/04/2025 11:17 AM EDT UTOX cup Lot#[id number] Exp. 08/12/26 Internal Pass Control us Boo Hastings MD POINT OF CARE TEST ENTER/EDIT OR DERABLES Final Result * Drug Monitoring, Methadone Metabolite, Screen, Urine (09/04/2025 11:00 AM EDT) Methadone Screen, Urine Not Detected Not Detect ng/mL [facility] Comment:Methadone cut-off is 300 ng/mL.Positive results are unconfirmed and should not be used fornon-medical purposes. Urine (Urine, Random) 09/04/2025 11:00 AM EDT 09/04/2025 5:11 PM EDT us Boo Hastings MD LAB URINE ORDERABLES Final Resul t Performing Organization Address [facility]/ZIP Co de Phone Number [facility] [address] [place] [phone] * POCT HGB A1C (05/16/2025 10:18 AM EDT) Hemoglobin A1C 5.0 4.0 - 5.7 % QC Media Lot # [id number] Lot# Expiration Date Blood 05/16/2025 10:1 8 AM EDT us Boo Hastings MD POINT OF CARE TEST ENTER/EDIT OR DERABLES Final Result * Albumin, Random Urine W/Creatinine (02/06/2025 9:20 AM EDT) Creatinine, Urine 73.35 mg/dL [facility] Microalbumin Urine 10.0 mg/L [facility] Microalbum Creatinine Ratio Ur 13.6 <30 ug/mg cr [facility] Comment:Albumin/Creatinine R atio Reference Ranges: Normal: < 30 ug/mg creatinine Microalbuminuria: 30 - 300 ug/mg creatinineClinical Albuminuria: > 300 ug/mg creatinine 02/06/2025 9:20 AM EDT 02/06/2025 2:08 PM EDT us Boo Hastings MD LAB URINE ORDERABLES Final Resul t Performing Organization Address [facility]/ZIP Co de Phone Number [facility] [address] [place] [phone] * Lipid Panel, Standard (02/06/2025 9:18 AM EDT) Triglycerides 52 <150 mg/dL [facility] Comment:Desirable Triglyceri de: less than 150 mg/dLBorderline High Triglyceride 150-199 mg/dLHigh Triglyceride: 200-499 mg/dLVery High Triglyceride: greater than or equal to 5OO mg/dL Cholesterol 147 <200 mg/dL [facility] Comment:Desirable Cholestero l: less than 200 mg/dLBorderline High Cholesterol: 200-239 mg/dLHigh Cholesterol: greater than 239 mg/dL LDL Cholesterol Calculated 79 <100 mg/dL [facility] Comment:Desirable LDL: less than 100 mg/dLNear Optimal/Above Optimal LDL: 110- 129 mg/dLBorderline High LDL: 130-159 mg/dLHigh LDL: 160-189 mg/dLVery High LDL: greater than or equal to 190 mg/dL HDL Cholesterol 58 >40 mg/dL [facility] Comment:Desirable HDL: great er than 40 mg/dL Note: This HDL assay may give artificially low results in patients with liver disease. 02/06/2025 9:18 AM EDT 02/06/2025 2:04 PM EDT us Boo Hastings MD LAB BLOOD ORDERABLES Final Resul t [facility] [address] [place] [address] [phone] * Mammography (04/08/2024) Mammogram BIRADS 1 Normal, Abnormal, BIRADS 1 , BIRADS 2 Anatomical Region Laterality Modality Other us Boo Hastings MD HEALTH MAINTENANCE Final Result * Pap Smear (09/04/2023 11:17 AM EDT) 09/04/2023 11:1 7 AM EDT 09/05/2023 9:00 AM EDT Narrative [facility] - 09/21/2023 11:07 AM EST ----- ------- Name: Juana Lord Age/Sex: 63/F : 1960 Unit#: [id number] Attend Dr: SHANTELLE DUNAWAY [facility] Re09/04/23 Status: DEP REF Location: [facility] Disch: ----- ------- SPEC : [id number] RECD: 09/05/23 STATUS: GROVER IVERSON NUM: [id number] JESUS: 09/04/23 [facility] [place] DR: SHANTELLE DUNAWAY [facility] ENTERED: 09/05/23 SP TYPE: Pap Smr OTHR DR: ORDERED: Pap Smear Interpretation Satisfactory for evaluation. Atrophic. Negative for intraepithelial lesion or malignancy. HPV unable to be performed due to error at reference lab. Clinical Information LMP: Unknown date Previous PAP test: Unknown date/findings Material Received ThinPrep-Cervical ----- ------- Signed (signature on file) YEIMI Villanueva ([facility]) 09/21/23 1107 ----- ------- END OF REPORT Shantelle ALFONSO LAB CYTOLOGY ORDERABLES F inal Result [facility] [address] [place] [phone] * Hm Colonoscopy (08/02/2022 10:14 AM EDT) Colonoscopy Normal Normal Narrative Anita Marroquin - 08/02/2022 10:14 AM EDT Recommended 5 year follow up Historical Provider MD HEALTH MAINTENANCE Edited Result - Final * HPV mRNA E6/E7 (07/25/2017 9:30 AM EDT) HPV mRNA E6/E7 Not Detected NOT DETECTED [facility] Comment: This test was performed using the APTIMA(R) HPV Assay ([employer] This assay detects E6/E7 viral messenger RNA (mRNA) from 14 high-risk HPV types (16,18,31,33,35,39,45,51, 52,56,58,59,66,68). For additional information please refer to: http://education.[employer] [place]/faq/ZAB311h8 (This link is being provided for informational/ educational purposes only.) Test Performed by [facility], [facility], [address] [place] [address] John Aaron M.D., Ph.D., Director of Laboratories , [place] [id number] Please note: Effective 07/18/2016, HPV testing will be performed using [employer]'s APTIMA test which targets mRNA. Detecting mRNA instead of DNA, as in older methods, offers significant improvements in specificity. 07/25/2017 9:30 AM EDT Shantelle ALFONSO HISTORICAL/NON ORDERABLE LABS Final Result [facility] [address] from Last 3 Months or Most Recently Relevant to Health Maintenance Insurance [facility] OPT[employer] (HMO D-SNP) [facility] STANDARD D[facility] Care Teams Drum Handler Relationship Specialty Start Date End Date Name, MD Boo [address] [place] [address] PCP - General Family Medicine 04/26/19 Ira Orozco, Nelida [address] [place] [address] Pharmacist Internal Medicine 02/03/25 Janessa Fraga 11/23/24
--- OUTSIDE RECORDS SUMMARY | 2025-09-10 14:20 | XMS_ITS | Encounter Summary ---
Author Organization [employer] Address [address] 7[address] [place] [address] Care Team Providers Care Right Of Way Clearer Name Role Phone Name, Boo FARLEY Primary Care Provider [phone] Ira Orozco PharmD Unavailable [phone] Reason for Visit * Reason Comments Med Refill Encounter Details Date Type Department Care Team ([facility] Contact Info) Description 05/01/2023 Refill [facility] [address] [place], [place] [phone] Name, MD Boo [address] [place] [address] Moderate persistent asthma without complication Social History [...] Team ([facility] Contact Info) Description 11/28/2025 9:00 AM EST Office Visit [facility] [address] [place] [address] Name, MD Boo [address] [place] [address] 12/12/2025 10:30 AM EST Telemedicine [facility] [address] [place] [address] Ame Love, RN 12/16/2025 10:15 AM EST Office Visit [facility] [address] [place] [address] Dangelo Pino 01/14/2026 10:30 AM EDT Office Visit [facility] [address] [place] [address] Katlyn Vasquez, OD [address] [place] [address] documented as of this encounter Visit Diagnoses Diagnosis Moderate persistent asthma without complication documented in this encounter Additional Health Concerns Assessment Noted Time PHQ-9 Depression Total Score: 6 10/25/20 22 4:10 PM EST documented as of this encounter Care Teams Right Of Way Clearer Relationship Specialty Start Date End Date Name, MD Boo [address] [place] [phone] PCP - General Family Medicine 04/26/19 Ira Orozco PharmD [address] [place] [phone] Pharmacist Internal Medicine 02/03/25 Janessa Fraga 11/23/24 documented as of this encounter
--- OUTSIDE RECORDS SUMMARY | 2025-09-10 14:20 | XMS_ITS | Encounter Summary ---
Author Organization [employer] Address [address] [facility] 7t [place] [address] Care Team Providers Care [facility] Lab Technician Name Role Phone Name, Boo FARLEY Primary Care Provider [phone] Ira Orozco PharmD Unavailable [phone] Encounter Details Date Type Department Care Team ([facility] Contact Info) Description 12/29/2022 Telephone [facility] [address] [place] [phone] Name, MD Boo [address] [place] [phone] Social History Tobacco Use Types Packs/Day Years [...] Upcoming Encounters Date Type Department Care Team ([facility] Contact Info) Description 11/28/2025 9:00 AM EST Office Visit [facility] [address] [place] [address] [place] [address] Name, MD Boo [address] [place] [address] 12/12/2025 10:30 AM EST Telemedicine [facility] [address] [place] [address] Ame Love, RN 12/16/2025 10:15 AM EST Office Visit [facility] [address] [place] [address] Dangelo Pino 01/14/2026 10:30 AM EDT Office Visit [facility] [address] [place] [address] Katlyn Vasquez, OD [address] [place] [address] documented as of this encounter Visit Diagnoses Not on filedocumented in this encounter Additional Health Concerns Assessment Noted Time PHQ-9 Depression Total Score: 6 10/25/20 22 4:10 PM EST documented as of this encounter Care Teams [facility] Lab Technician Relationship Specialty Start Date End Date Name, MD Boo [address] [place] [address] PCP - General Family Medicine 04/26/19 Ira Orozco PharmD [address] [place] [phone] Pharmacist Internal Medicine 02/03/25 Janessa Fraga 11/23/24 documented as of this encounter
--- OUTSIDE RECORDS SUMMARY | 2025-09-10 14:20 | XMS_ITS | Encounter Summary ---
Author Organization [employer] Address [address] [facility] 7t [place] [address] Care Team Providers Care Chemical Dependency Attendant Name Role Phone Name, Boo FARLEY Primary Care Provider [phone] Ira Orozco PharmD Unavailable [phone] Reason for Visit * Reason Comments Med Refill Encounter Details Date Type Department Care Team ([facility] Contact Info) Description 07/30/2024 Refill [facility] [address] [place], [place] [phone] Name, MD Boo [address] [place] [address] Lumbar radiculopathy Social History Tobacco Use Types [...] 9:00 AM EST Office Visit [facility] [address] [place] [phone] Name, MD Boo [address] [place] [address] 12/12/2025 10:30 AM EST Telemedicine [facility] [address] [place] [address] Ame Love, GEM 12/16/2025 10:15 AM EST Office Visit [facility] [address] [place] [address] Dangelo Pino 01/14/2026 10:30 AM EDT Office Visit [facility] OPT[facility] [address] [place] [address] Katlyn Vasquez, OD [address] [place] [address] documented as of this encounter Goals Goal [...] documented as of this encounter Care Teams Chemical Dependency Attendant Relationship Specialty Start Date End Date Name, MD Boo [address] [place] [address] PCP - General Family Medicine 04/26/19 Ira Orozco PharmD [address] [place] [address] Pharmacist Internal Medicine 02/03/25 Janessa Fraga 11/23/24 documented as of this encounter
--- OUTSIDE RECORDS SUMMARY | 2025-09-10 14:20 | XMS_ITS | Encounter Summary ---
Author Organization [employer] Address [address] [facility] 7t [place] [address] Care Team Providers Care Dupligraph Operator Name Role Phone Name, Boo FARLEY Primary Care Provider [phone] Ira Orozco PharmD Unavailable [phone] Reason for Visit * Reason Comments Med Refill Encounter Details Date Type Department Care Team ([facility] Contact Info) Description 11/21/2023 Refill [facility] [address] [place], [place] [phone] Penny Kang MD [address] [place] [address] Lumbar radiculopathy Social History Tobacco Use Types [...] Description 11/28/2025 9:00 AM EST Office Visit [facility] [address] [place] [address] Boo Hastings MD [address] [place] [address] 12/12/2025 10:30 AM EST Telemedicine [facility] [address] [place] [address] Ame Love RN 12/16/2025 10:15 AM EST Office Visit [facility] [address] [place] [address] Dangelo Pino 01/14/2026 10:30 AM EDT Office Visit [facility] [address] [place] [address] Katlyn Vasquez, OD [address] [place] [address] documented as of this encounter Goals Goal [...] documented as of this encounter Care Teams Dupligraph Operator Relationship Specialty Start Date End Date Name, MD Boo [address] [place] [address] PCP - General Family Medicine 04/26/19 Ira Orozco, LesleyD [address] [place] [address] Pharmacist Internal Medicine 02/03/25 Janessa Fraga 11/23/24 documented as of this encounter
--- OUTSIDE RECORDS SUMMARY | 2025-09-10 14:20 | XMS_ITS | Encounter Summary ---
Author Organization [employer] Address 75 [facility] 7t [place] [address] Care Team Providers Care Side Framer Name Role Phone Name, Boo FARLEY Primary Care Provider [phone] Ira Orozco PharmD Unavailable [phone] Reason for Visit * Reason Onset Date Comments PA for tooth 9 08/21/2023 status on case back from lab? 08/21/2023 Encounter Details Date Type Department Care Team ([facility] st Contact Info) Description 08/21/2023 Telephone [facility] [address] [place] [address] He Jimenez, DDS [address] [facility] [address] PA for tooth 9; status on case [...] approved for tooth #8 for crown through [facility] but she is confused as towhy there [...] 9:00 AM EST Office Visit [facility] [address] [place] [address] Name, MD Boo [address] [place] [address] 12/12/2025 10:30 AM EST Telemedicine [address] [address] Ame Love, GEM 12/16/2025 10:15 AM EST Office Visit [facility] ADULT D[facility]AL [address] [place] [address] Dangelo Pino 01/14/2026 10:30 AM EDT Office Visit [facility] OPTOMETRY [address] [place] [address] Katlyn Vasquez, OD 230 [place] [address] documented as of this encounter Goals Goal [...] documented as of this encounter Care Teams Side Framer Relationship Specialty Start Date End Date Name, MD Boo 230 [place] [address] PCP - General Family Medicine 04/26/19 Ira Orozco, Nelida 230 [place] [address] Pharmacist Internal Medicine 02/03/25 Janessa Fraga 11/23/24 documented as of this encounter
--- OUTSIDE RECORDS SUMMARY | 2025-09-10 14:20 | XMS_ITS | Encounter Summary ---
Author Organization [employer] Address [address] [facility] [address] 7t [place] [address] Care Team Providers Care Tribal Council Member Name Role Phone Name, Boo FARLEY Primary Care Provider [phone] Ira Orozco PharmD Unavailable [phone] Reason for Visit * Reason Onset Date Comments Nurse Triage 06/19/2024 Encounter Details Date Type Department Care Team ([facility] Contact Info) Description 06/19/2024 Telephone [facility] 230 [place], [place] [phone] Name, MD Boo 230 [place] [address] Nurse Triage Social History Tobacco Use Types [...] the past 12 months, has t he [employer] gas, oil or water company threatened to [...] cough. Pt is offered to come to [facility] today but, declines and is [...] 9:00 AM EST Office Visit [facility] 230 [place] [address] Name, MD Boo 230 [place] [address] 12/12/2025 10:30 AM EST Telemedicine [facility] 230 [place] [address] Ame Love RN 12/16/2025 10:15 AM EST Office Visit [facility] ADULT DENTAL [address] [place] [address] Dangelo Pino 01/14/2026 10:30 AM EDT Office Visit [facility] OPTOMETRY [address] [place], [place] [phone] Katlyn Vasquez, LESLYE 230 [place] [address] documented as of this encounter Goals Goal [...] documented as of this encounter Care Teams Tribal Council Member Relationship Specialty Start Date End Date Name, MD Boo 230 [place] [address] PCP - General Family Medicine 04/26/19 Ira Orozco, LesleyD 230 [place] [address] Pharmacist Internal Medicine 02/03/25 Janessa Fraga 11/23/24 documented as of this encounter
--- OUTSIDE RECORDS SUMMARY | 2025-09-10 14:20 | XMS_ITS | Encounter Summary ---
Author Organization [employer] Address 75 [facility] 7t [place] [address] Care Team Providers Care Executive Housekeeper Name Role Phone Name, Boo FARLEY Primary Care Provider [phone] Ira Orozco PharmD Unavailable [phone] Reason for Visit * Reason Comments Med Refill Encounter Details Date Type Department Care Team ([facility] Contact Info) Description 02/16/2023 Refill [facility] [address] [place], [place] [phone] Name, MD Boo 230 [place] [address] Social History Tobacco Use Types Packs/Day Years [...] Upcoming Encounters Date Type Department Care Team ([facility] Contact Info) Description 11/28/2025 9:00 AM EST Office Visit [facility] [address] [place] [address] Name, MD Boo 230 [place] [address] 12/12/2025 10:30 AM EST Telemedicine [facility] [address] [place] [address] Ame Love, RN 12/16/2025 10:15 AM EST Office Visit [facility] ADULT DENTAL [address] [place] [address] Dangelo Pino 01/14/2026 10:30 AM EDT Office Visit [facility] OPTOMETRY [address] [place] [address] Katlyn Vasquez, OD 230 [place] [address] documented as of this encounter Visit Diagnoses Not on filedocumented in this encounter Additional Health Concerns Assessment Noted Time PHQ-9 Depression Total Score: 6 10/25/20 22 4:10 PM EST documented as of this encounter Care Teams Executive Housekeeper Relationship Specialty Start Date End Date Name, MD Boo [address] [place] [address] PCP - General Family Medicine 04/26/19 Ira Orozco PharmD [address] [place] [address] Pharmacist Internal Medicine 02/03/25 Janessa Fraga 11/23/24 documented as of this encounter
--- OUTSIDE RECORDS SUMMARY | 2025-09-10 14:20 | XMS_ITS | Encounter Summary ---
Author Organization [employer] Address 75 [facility] 7t [place] [address] Care Team Providers Care Chair Finisher Name Role Phone Name, Boo FARLEY Primary Care Provider [phone] Ira Orozco PharmD Unavailable [phone] Reason for Visit * Reason Comments Med Refill Encounter Details Date Type Department Care Team ([facility] Contact Info) Description 04/21/2023 Refill [facility] 230 [place], [place] [phone] Nazia Curiel FNP Acute pain of right [...] Upcoming Encounters Date Type Department Care Team ([facility] Contact Info) Description 11/28/2025 9:00 AM EST Office Visit [facility] 230 [place] [address] Name, MD Boo 230 [place] [address] 12/12/2025 10:30 AM EST Telemedicine [facility] 230 [place] [address] Ame Love, RN 12/16/2025 10:15 AM EST Office Visit [facility] ADULT DENTAL [address] [place] [address] Dangelo Pino 01/14/2026 10:30 AM EDT Office Visit [facility] OPTOMETRY [address] [place] [address] Katlyn Vasquez, OD 230 [place] [address] documented as of this encounter Visit Diagnoses Diagnosis Acute pain of right shoulder documented in this encounter Additional Health Concerns Assessment Noted Time PHQ-9 Depression Total Score: 6 10/25/20 22 4:10 PM EST documented as of this encounter Care Teams Chair Finisher Relationship Specialty Start Date End Date Name, MD Boo 230 [place] [address] PCP - General Family Medicine 04/26/19 Ira Orozco PharmD [address] [place] [address] Pharmacist Internal Medicine 02/03/25 Janessa Fraga 11/23/24 documented as of this encounter
--- OUTSIDE RECORDS SUMMARY | 2025-09-10 14:20 | XMS_ITS | Encounter Summary ---
Author Organization [employer] Address 75 [facility] 7t [place] [address] Care Team Providers Care Infant Toddler Lead Teacher Name Role Phone Name, Boo FARLEY Primary Care Provider [phone] Ira Orozco PharmD Unavailable [phone] Encounter Details Date Type Department Care Team ([facility] Contact Info) Description 02/13/2023 Orders Only [facility] MED[facility]INE [address] [place] [address] [phone] Miracle rPescott LPN Social History Tobacco Use Types Packs/Day [...] Upcoming Encounters Date Type Department Care Team ([facility] Contact Info) Description 11/28/2025 9:00 AM EST Office Visit [facility] [address] [place] [address] [phone] Name, MD Boo [address] [place] [address] 12/12/2025 10:30 AM EST Telemedicine [facility] 230 [place] [address] Ame Love, RN 12/16/2025 10:15 AM EST Office Visit [facility] CH[facility] ADULT DENTAL [address] [place] [address] Dangelo Pino 01/14/2026 10:30 AM EDT Office Visit [facility] OPTOMETRY [address] [place] [address] PedroTravis santosn, OD 230 [place] [address] documented as of this encounter Visit Diagnoses Not on filedocumented in this encounter Additional Health Concerns Assessment Noted Time PHQ-9 Depression Total Score: 6 10/25/20 22 4:10 PM EST documented as of this encounter Care Teams Infant Toddler Lead Teacher Relationship Specialty Start Date End Date Name, MD Boo [address] [place] [address] PCP - General Family Medicine 04/26/19 Ira Orozco PharmD [address] [place] [address] Pharmacist Internal Medicine 02/03/25 Janessa Fraga 11/23/24 documented as of this encounter
--- OUTSIDE RECORDS SUMMARY | 2025-09-10 14:20 | XMS_ITS | Encounter Summary ---
Author Organization [employer] Address 75 [facility] 7t [place] [address] Care Team Providers Care Harnessmaker Name Role Phone Name, Boo FARLEY Primary Care Provider [phone] Ira Orozco PharmD Unavailable [phone] Reason for Visit * Reason Comments Med Refill Encounter Details Date Type Department Care Team ([facility] Contact Info) Description 02/22/[address] [facility] 230 [place], [place] [phone] Name, MD Boo 230 [place] [address] Social History Tobacco Use Types Packs/Day Years [...] EST Office Visit [facility] 230 [place] [address] Name, MD Boo 230 [place] [address] 12/12/2025 10:[address] [facility] 230 [place] [address] Ame Love, RN 12/16/2025 10:15 AM EST Office Visit [facility] ADULT DENTAL [address] [place] [address] Dangelo Pino 01/14/2026 10:30 AM EDT Office Visit [facility] OPTOMETRY 267 [place] [address] Katlyn Vasquez, OD 230 [place] [address] documented as of this encounter Visit Diagnoses Not on filedocumented in this encounter Additional Health Concerns Assessment Noted Time PHQ-9 Depression Total Score: 6 10/25/20 22 4:10 PM EST documented as of this encounter Care Teams Harnessmaker Relationship Specialty Start Date End Date Name, MD Boo [address] [place] [address] PCP - General Family Medicine 04/26/19 Ira Orozco PharmD [address] [place] [address] Pharmacist Internal Medicine 02/03/25 Janessa Fraga 11/23/24 documented as of this encounter
--- OUTSIDE RECORDS SUMMARY | 2025-09-10 14:20 | XMS_ITS | Encounter Summary ---
Author Organization [employer] Address [address] [facility] [address] 7t [place] [address] Care Team Providers Care Recruitment Specialist Name Role Phone Name, Boo FARLEY Primary Care Provider [phone] Ira Orozco PharmD Unavailable [phone] Reason for Visit * Reason Onset Date Comments Med Refill 01/03/2024 Encounter Details Date Type Department Care Team ([facility] Contact Info) Description 01/03/2024 Telephone [facility] 230 [place], [place] [phone] Name, MD Boo 230 [place] [address] Med Refill Social History Tobacco Use Types [...] Lidoderm 5% patches to be sent to [facility] [place] - [address] [facility]. States she does not want generic, only brand name. documented in this encounter Plan of Treatment Upcoming Encounters Date Type Department Care Team (Late st Contact Info) Description 11/28/2025 9:00 AM EST Office Visit [facility] [address] [place] [address] Name, MD Boo [address] [place] [address] 12/12/2025 10:30 AM EST Telemedicine [facility] [address] [place] [address] Ame Love RN 12/16/2025 10:15 AM EST Office Visit [facility] ADULT DENTAL [address] [place] [address] Dangelo Pino 01/14/2026 10:30 AM EDT Office Visit [facility] OPTOMETRY [address] [place], [place] [phone] Katlyn Vasquez, OD 230 [place] [address] documented as of this encounter Goals Goal [...] documented as of this encounter Care Teams Recruitment Specialist Relationship Specialty Start Date End Date Name, MD Boo 230 [place] [address] PCP - General Family Medicine 04/26/19 Ira Orozco PharmD 230 [place] [address] Pharmacist Internal Medicine 02/03/25 Janessa Fraga 11/23/24 documented as of this encounter
--- OUTSIDE RECORDS SUMMARY | 2025-09-10 14:20 | XMS_ITS | Encounter Summary ---
Author Organization [employer] Address 75 [facility] 7t [place] [address] Care Team Providers Care Technical Support Specialist Name Role Phone Name, Boo FARLEY Primary Care Provider [phone] Ira Orozco PharmD Unavailable [phone] Reason for Visit * Reason Comments Med Refill Encounter Details Date Type Department Care Team ([facility] Contact Info) Description 02/11/2023 Refill [facility] MED & PEDS 505 [place], [place] [phone] Name, MD Boo 230 [place] [address] Migraine without status migrainosus, not intractable, unspecified [...] Team ([facility] Contact Info) Description 11/28/2025 9:00 AM EST Office Visit [facility] MEDICINE 230 [place] [address] Name, MD Boo 230 [place] [address] 12/12/2025 10:30 AM EST Telemedicine [facility] MEDICINE 230 [place] [address] Ame Love, RN 12/16/2025 10:15 AM EST Office Visit [facility] CHC ADULT DENTAL [address] [place] [address] Dangelo Pino 01/14/2026 10:30 AM EDT Office Visit [facility] OPTOMETRY [address] [place] [address] Pedro, Katlyn, OD 230 [place] [address] documented as of this encounter Visit Diagnoses Diagnosis Migraine without status migrainosus, not intractable, unspecified migraine type documented in this encounter Additional Health Concerns Assessment Noted Time PHQ-9 Depression Total Score: 6 10/25/20 22 4:10 PM EST documented as of this encounter Care Teams Technical Support Specialist Relationship Specialty Start Date End Date Name, MD Boo [address] [place] [address] PCP - General Family Medicine 04/26/19 Ira Orozco PharmD [address] [place] [address] Pharmacist Internal Medicine 02/03/25 Janessa Fraga 11/23/24 documented as of this encounter
--- OUTSIDE RECORDS SUMMARY | 2025-09-10 14:20 | XMS_ITS | Encounter Summary ---
Author Organization [employer] Address [address] [facility] [address] 7t [place] [address] Care Team Providers Care Sheriff Deputy Name Role Phone Name, Boo FARLEY Primary Care Provider [phone] Ira Orozco PharmD Unavailable [phone] Reason for Visit * Reason Onset Date Comments Med Refill 10/24/2023 Encounter Details Date Type Department Care Team ([facility] Contact Info) Description 10/24/2023 Telephone [facility] 230 [place], [place] [phone] Name, MD Boo 230 [place] [address] Med Refill Social History Tobacco Use Types [...] refill for Percocet 5/325mg was sent to [facility] pharmacy on 10/24/23. Per [facility] check 10/26/23, pt filled a 28 day supply on 10/24/23. * Telephone Encounter - Mike Yang - 10/24/2023 8:17 AM EST Tc from pt requesting med refill on oxyCODONE-acetaminophen (Percocet) 5-325 MG tablet Please sent to [facility] - [place], [place] - [address] documented in this encounter Plan of Treatment Upcoming Encounters Date Type Department Care Team (Late st Contact Info) Description 11/28/2025 9:00 AM EST Office Visit [facility] [address] [place] [address] Name, MD Boo [address] [place] [address] 12/12/2025 10:30 AM EST Telemedicine [facility] [address] [place] [address] Ame Love RN 12/16/2025 10:15 AM EST Office Visit [facility] ADULT DENTAL [address] [facility] [place] [address] Dangelo Pino 01/14/2026 10:30 AM EDT Office Visit [facility] OPTOMETRY [address] [place] [address] Katlyn Vasquez, OD 230 [place] [address] documented as of this encounter Goals Goal [...] documented as of this encounter Care Teams Sheriff Deputy Relationship Specialty Start Date End Date Name, MD Boo 230 [place] [address] PCP - General Family Medicine 04/26/19 Ira Orozco PharmD 230 [place] [address] Pharmacist Internal Medicine 02/03/25 Janessa Fraga 11/23/24 documented as of this encounter
--- OUTSIDE RECORDS SUMMARY | 2025-09-10 14:20 | XMS_ITS | Encounter Summary ---
Author Organization [employer] Address 75 [facility] 7t [place] [address] Care Team Providers Care School Cook Name Role Phone Name, Boo FARLEY Primary Care Provider [phone] Ira Orozco PharmD Unavailable [phone] Reason for Visit * Reason Comments Med Refill Encounter Details Date Type Department Care Team ([facility] Contact Info) Description 03/15/2024 Refill [facility] 230 [place], [place] [phone] Name, MD Boo 230 [place], [place] [phone] Chronic pain syndrome Social History Tobacco Use [...] EST Office Visit [facility] [address] [place] [address] NameBoo MD [address] [place] [address] 12/12/2025 10:30 AM EST Telemedicine [facility] [address] [place] [address] Ame Love, GEM 12/16/2025 10:15 AM EST Office Visit [facility] ADULT D[facility]AL [address] [place] [address] Dangelo Pino 01/14/2026 10:30 AM EDT Office Visit [facility] OPTOMETRY [address] [place] [address] Katlyn Vasquez, OD 230 [place] [address] documented as of this encounter Goals Goal [...] documented as of this encounter Care Teams School Cook Relationship Specialty Start Date End Date Name, MD Boo [address] [place] [address] PCP - General Family Medicine 04/26/19 Ira Orozco, Nelida [address] [place] [address] NEREIDA Balderrama [phone] Pharmacist Internal Medicine 02/03/25 Janessa Fraga 11/23/24 documented as of this encounter
--- OUTSIDE RECORDS SUMMARY | 2025-09-10 14:20 | XMS_ITS | Encounter Summary ---
Author Organization [employer] Address 75 [facility] 7t [place] [address] Care Team Providers Care Rinkman Name Role Phone Name, Boo FARLEY Primary Care Provider Ira Orozco PharmD Unavailable Reason for Visit * Reason Comments Med Refill Encounter Details Date Type Department Care Team ([facility] Contact Info) Description 05/01/2023 Refill [facility] 230 [place], [place] [phone] Nazia Curiel FNP Acute pain of right [...] Encounters Date Type Department Care Team ([facility] Contact Info) Description 11/28/2025 9:00 AM EST Office Visit [facility] 230 [place] [address] Name, MD Boo 230 [place] [address] 12/12/2025 10:30 AM EST Telemedicine [facility] MED[facility] 230 [place] [address] Ame Love, RN 12/16/2025 10:15 AM EST Office Visit [facility] CH[facility] ADULT DENTAL [address] [place] [address] Dangelo Pino 01/14/2026 10:30 AM EDT Office Visit [facility] OPTOMETRY [address] [place] [address] Katlyn Vasquez, OD 230 [place] [address] documented as of this encounter Visit Diagnoses Diagnosis Acute pain of right shoulder documented in this encounter Additional Health Concerns Assessment Noted Time PHQ-9 Depression Total Score: 6 10/25/20 22 4:10 PM EST documented as of this encounter Care Teams Rinkman Relationship Specialty Start Date End Date Name, MD Boo 230 [place] [address] PCP - General Family Medicine 04/26/19 Ira Orozco PharmD [address] [place] [address] Pharmacist Internal Medicine 02/03/25 Janessa Fraga 11/23/24 documented as of this encounter
--- OUTSIDE RECORDS SUMMARY | 2025-09-10 14:21 | XMS_ITS | Encounter Summary ---
Author Organization [employer] Address [address] [facility] [address] 7[address] [place] [address] Care Team Providers Care Vp Name Role Phone Name, Boo FARLEY Primary Care Provider [phone] Ira Orozco PharmD Unavailable [phone] Reason for Visit * Reason Onset Date Comments FYI/Letter 10/28/2024 Encounter Details Date Type Department Care Team ([facility] Contact Info) Description 10/28/2024 Telephone [facility] 230 [place], [place] [phone] Name, MD Boo 230 [place] [address] FYI/Letter Social History Tobacco Use Types Packs/Day [...] from pt daughter Dirk regarding prior message. Air Intercept Controller informed her of 7-14 business days for letter to be completed. Dirk verbalized understanding and stated she would like to leave a note as a FYI informing PCP pt is currently admitted at [facility] due to mental health If any questions or concerns contact [phone] * Telephone Encounter - Christen Hurtado - 11/04/2024 9:31 AM EST Tc from status of letter that was asked the day of pt appointment , pt was transfer to medical records as pt was transfer back to call center as per letter she's requesting is not available yet and pt is requesting a callback [phone] * Telephone Encounter - Christen Hurtado - 10/28/2024 1:37 PM EST Tc from [facility] informing that pt was seen by pcp and she will like to inform PCP to add in the letter that was ask for pt to add due to medical condition she requires a first floor apartment [phone] documented in this encounter Plan of Treatment Upcoming Encounters Date Type Department Care Team (Late st Contact Info) Description 11/28/2025 9:00 AM EST Office Visit [facility] 230 [place] [address] Name, MD Boo [address] [place] [address] 12/12/2025 10:30 AM EST Telemedicine [facility] MEDICINE [address] [place] [address] Ame Love, GEM 12/16/2025 10:15 AM EST Office Visit [facility] CHC ADULT DENTAL [address] [place] [address] Dangelo Pino 01/14/2026 10:30 AM EDT Office Visit [facility] OPTOMETRY [address] [place] [address] Katlyn Vasquez, OD 230 [place] [address] documented as of this encounter Goals Goal [...] documented as of this encounter Care Teams Vp Relationship Specialty Start Date End Date Name, MD Boo 230 [place] [address] PCP - General Family Medicine 04/26/19 Ira Orozco, LesleyD 230 [place] [address] Pharmacist Internal Medicine 02/03/25 Janessa Fraga 11/23/24 documented as of this encounter
--- OUTSIDE RECORDS SUMMARY | 2025-09-10 14:21 | XMS_ITS | Encounter Summary ---
Author Organization [employer] Address [address] 7t [place] [address] Care Team Providers Care Mexican Food Maker Name Role Phone Name, Boo FARLEY Primary Care Provider [phone] Ira Orozco PharmD Unavailable [phone] Reason for Visit * Reason Onset Date Comments Med Refill 01/19/2024 Encounter Details Date Type Department Care Team ([facility] Contact Info) Description 01/19/2024 Telephone [facility] MEDICINE 230 [place], [place] [phone] Name, MD Boo 230 [place] [address] Med Refill Social History Tobacco Use Types [...] 9:01 AM EDT Medication was sent to [facility] on 01/16/24. * Telephone Encounter - Mike Yang - 01/19/2024 8:52 AM EDT TC from pt requesting medication refill. Medications needing refill : IBU 800 MG tablet To be sent to: [facility] - [place] - [address] documented in this encounter Plan of Treatment Upcoming Encounters Date Type Department Care Team (Late st Contact Info) Description 11/28/2025 9:00 AM EST Office Visit [facility] MEDICINE [address] [place] [address] Name, MD Boo [address] [place] [address] 12/12/2025 10:30 AM EST Telemedicine [facility] MEDICINE [address] [place] [address] Ame Love RN 12/16/2025 10:15 AM EST Office Visit [facility] ADULT DENTAL [address] [place] [address] Dangelo Pino 01/14/2026 10:30 AM EDT Office Visit [facility] OPTOMETRY [address] [place] [address] Katlyn Vasquez, OD 230 [place] [address] documented as of this encounter Goals Goal [...] documented as of this encounter Care Teams Mexican Food Maker Relationship Specialty Start Date End Date Name, MD Boo 230 [place] [address] PCP - General Family Medicine 04/26/19 Ira Orozco, Nelida 230 [place] [address] Pharmacist Internal Medicine 02/03/25 Janessa Fraga 11/23/24 documented as of this encounter
--- OUTSIDE RECORDS SUMMARY | 2025-09-10 14:21 | XMS_ITS | Encounter Summary ---
Author Organization [employer] Address [address] [facility] 7t [place] [address] Care Team Providers Care Work Force Advisor Name Role Phone Name, Boo FARLEY Primary Care Provider Ira Orozco PharmD Unavailable [phone] Encounter Details Date Type Department Care Team (Latest Contact Info) Description 06/08/2022 Abstract [facility] CONVERSIONS Dental, Provider, DDS Social History Tobacco [...] Description 11/28/2025 9:00 AM EST Office Visit [facility] MEDICINE 230 [place] [address] Name, MD Boo 230 [place] [address] 12/12/2025 10:30 AM EST Telemedicine [facility] MEDICINE 230 [place] [address] Ame Love, GEM 12/16/2025 10:15 AM EST Office Visit [facility] CHC ADULT DENTAL [address] [place] [address] Dangelo Pino 01/14/2026 10:30 AM EDT Office Visit [facility] OPTOMETRY [address] [place] [address] Katlyn Vasquez, OD 230 [place] [address] documented as of this encounter Visit Diagnoses Not on filedocumented in this encounter Care Teams Work Force Advisor Relationship Specialty Start Date End Date Name, MD Boo 230 [place] [address] PCP - General Family Medicine 04/26/19 Ira Orozco, Nelida 230 [place] [address] Pharmacist Internal Medicine 02/03/25 Janessa Fraga 11/23/24 documented as of this encounter
--- OUTSIDE RECORDS SUMMARY | 2025-09-10 14:21 | XMS_ITS | Encounter Summary ---
Author Organization [employer] Address [address] [facility] 7t [place] [address] Care Team Providers Care Trailer Park Manager Name Role Phone Name, Boo FARLEY Primary Care Provider [phone] Ira Orozco PharmD Unavailable [phone] Reason for Visit * Reason Comments Med Refill Encounter Details Date Type Department Care Team ([facility] Contact Info) Description 06/19/2023 Refill [facility] MEDICINE [address] [place] [address] [phone] Boo Hastings MD [address] [place] [address] [phone] Moderate persistent asthma without complication; Chronic pain [...] Upcoming Encounters Date Type Department Care Team ([facility] Contact Info) Description 11/28/2025 9:00 AM EST Office Visit [facility] MEDICINE [address] [place] [address] [phone] Boo Hastings MD [address] [place] [address] 12/12/2025 10:30 AM EST Telemedicine [facility] MEDICINE 230 [place] [address] Ame Love, RN 12/16/2025 10:15 AM EST Office Visit [facility] CHC ADULT DENTAL [address] [place] [address] Dangelo Pino 01/14/2026 10:30 AM EDT Office Visit [facility] OPTOMETRY [address] [place] [address] PedroKatlyn santos, OD 230 [place] [address] documented as of this encounter Visit Diagnoses Diagnosis Moderate persistent asthma without complication Chronic pain syndrome documented in this encounter Additional Health Concerns Assessment Noted Time PHQ-9 Depression Total Score: 6 10/25/20 22 4:10 PM EST documented as of this encounter Care Teams Trailer Park Manager Relationship Specialty Start Date End Date Name, MD Boo [address] [place] [address] PCP - General Family Medicine 04/26/19 Ira Orozco PharmD [address] [place] [address] Pharmacist Internal Medicine 02/03/25 Janessa Fraga 11/23/24 documented as of this encounter
--- OUTSIDE RECORDS SUMMARY | 2025-09-10 14:21 | XMS_ITS | Encounter Summary ---
Author Organization [employer] Address [address] 7t [place] [address] Care Team Providers Care Aircraft Fueler Name Role Phone Name, Boo FARLEY Primary Care Provider [phone] Ira Orozco PharmD Unavailable [phone] Reason for Visit * Reason Onset Date Comments Medication Question 09/20/2024 Encounter Details Date Type Department Care Team ([facility] Contact Info) Description 09/20/2024 Telephone [facility] MEDICINE 230 [place], [place] [phone] Name, MD Boo 230 [place] [address] Medication Question Social History Tobacco Use Types [...] t he electric, gas, oil or water [employer] threatened to shut off services in your [...] patch not be genetic. Contact pt at [phone] documented in this encounter Plan of Treatment Upcoming Encounters Date Type Department Care Team (Late st Contact Info) Description 11/28/2025 9:00 AM EST Office Visit [facility] MEDICINE [address] [place] [address] Name, MD Boo [address] [place] [address] 12/12/2025 10:30 AM EST Telemedicine [facility] MEDICINE [address] [place] [address] Ame Love RN 12/16/2025 10:15 AM EST Office Visit [facility] CHC ADULT DENTAL [address] [place] [address] Dangelo Pino 01/14/2026 10:30 AM EDT Office Visit [facility] OPTOMETRY [address] [place], [place] [phone] Katlyn Vasquez, OD 230 [place] [address] documented as of this encounter Goals Goal [...] documented as of this encounter Care Teams Aircraft Fueler Relationship Specialty Start Date End Date Name, MD Boo 230 [place] [address] PCP - General Family Medicine 04/26/19 Ira Orozco PharmD 230 [place] [address] Pharmacist Internal Medicine 02/03/25 Janessa Fraga 11/23/24 documented as of this encounter
--- OUTSIDE RECORDS SUMMARY | 2025-09-10 14:21 | XMS_ITS | Encounter Summary ---
Author Organization [employer] Address [address] [facility] 7t [place] [address] Care Team Providers Care Pediatric Occupational Therapist Name Role Phone Name, Boo FARLEY Primary Care Provider [phone] Ira Orozco PharmD Unavailable [phone] Reason for Visit * Reason Onset Date Comments Appointment Request 01/06/2025 Encounter Details Date Type Department Care Team ([facility] Contact Info) Description 01/06/2025 Telephone [facility] MEDICINE 230 [place], [place] [phone] Name, MD Boo 230 [place] [address] Appointment Request Social History Tobacco Use Types [...] r/s Apt from 01/06/25. Conatatc pt at [phone] documented in this encounter Plan of Treatment Upcoming Encounters Date Type Department Care Team (Late st Contact Info) Description 11/28/2025 9:00 AM EST Office Visit [facility] MEDICINE [address] [place] [address] Name, MD Boo [address] [place] [address] 12/12/2025 10:30 AM EST Telemedicine [facility] [address] [place] [address] Ame Love RN 12/16/2025 10:15 AM EST Office Visit [facility] CH[facility] ADULT DENTAL [address] [place] [address] Dangelo Pino 01/14/2026 10:30 AM EDT Office Visit [facility] OPTOMETRY [address] [place], [place] [phone] Katlyn Vasquez, OD 230 [place] [address] documented as of this encounter Goals Goal [...] documented as of this encounter Care Teams Pediatric Occupational Therapist Relationship Specialty Start Date End Date Name, MD Boo 230 [place] [address] PCP - General Family Medicine 04/26/19 Ira Orozco PharmD 230 [place] [address] Pharmacist Internal Medicine 02/03/25 Janessa Fraga 11/23/24 documented as of this encounter
--- OUTSIDE RECORDS SUMMARY | 2025-09-10 14:21 | XMS_ITS | Encounter Summary ---
Author Organization [employer] Address [address] 7t [place] [address] Care Team Providers Care Transformation Architect Name Role Phone Name, Boo FARLEY Primary Care Provider Ira Orozco PharmD Unavailable [phone] Reason for Visit * Reason Onset Date Comments Med Refill 04/09/2024 Encounter Details Date Type Department Care Team ([facility] Contact Info) Description 04/09/[address] [facility] MEDICINE 230 [place], [place] [phone] Name, MD Boo 230 [place] [address] Med Refill Social History Tobacco Use Types [...] powder And lidocaine (Lidoderm) 5 % patch marketing copywriter did confirm with pharmacy and was discontinued on 03/20 To be sent to: [facility] - [place] - [address] documented in this encounter Plan of Treatment Upcoming Encounters Date Type Department Care Team (Late st Contact Info) Description 11/28/2025 9:00 AM EST Office Visit [facility] MEDICINE [address] [place] [address] Name, MD Boo [address] [place] [address] 12/12/2025 10:30 AM EST Telemedicine [facility] MEDICINE [address] [place] [address] Ame Love RN 12/16/2025 10:15 AM EST Office Visit [facility] CHC ADULT DENTAL [address] [place] [address] Dangelo Pino 01/14/2026 10:30 AM EDT Office Visit [facility] OPTOMETRY [address] [place] [address] Katlyn Vasquez, OD 230 [place] [address] documented as of this encounter Goals Goal [...] documented as of this encounter Care Teams Transformation Architect Relationship Specialty Start Date End Date Name, MD Boo 230 [place] [address] PCP - General Family Medicine 04/26/19 Ira Orozco PharmD 230 [place] [address] Pharmacist Internal Medicine 02/03/25 Janessa Fraga 11/23/24 documented as of this encounter
--- OUTSIDE RECORDS SUMMARY | 2025-09-10 14:21 | XMS_ITS | Encounter Summary ---
Author Organization [employer] Address [address] 7t [place] [address] Care Team Providers Care Educational Recruiter Name Role Phone Name, Boo FARLEY Primary Care Provider [phone] Ira Orozco PharmD Unavailable [phone] Encounter Details Date Type Department Care Team ([facility] Contact Info) Description 11/21/2024 Telephone [facility] MEDICINE 230 [place], [place] [phone] Name, MD Boo 230 [place] [address] Social History Tobacco Use Types Packs/Day Years [...] Description 11/28/2025 9:00 AM EST Office Visit [facility] MEDICINE 230 [place] [address] Name, MD Boo 230 [place] [address] 12/12/2025 10:30 AM EST Telemedicine [facility] MEDICINE 230 [place] [address] Ame Love, RN 12/16/2025 10:15 AM EST Office Visit [facility] CHC ADULT DENTAL [address] [place] [address] Dangelo Pino 01/14/2026 10:30 AM EDT Office Visit [facility] OPTOMETRY [address] [place] [address] Katlyn Vasquez, LESLEY 230 [place] [address] documented as of this encounter Goals Goal [...] documented as of this encounter Care Teams Educational Recruiter Relationship Specialty Start Date End Date Name, MD Boo 230 [place] [address] PCP - General Family Medicine 04/26/19 Ira Orozco PharmD 230 [place] [address] Pharmacist Internal Medicine 02/03/25 Janessa Fraga 11/23/24 documented as of this encounter
--- OUTSIDE RECORDS SUMMARY | 2025-09-10 14:21 | XMS_ITS | Encounter Summary ---
Author Organization [employer] Address [address] 7t [place] [address] Care Team Providers Care Cardiac Tech Name Role Phone Name, Boo FARLEY Primary Care Provider [phone] Ira Orozco PharmD Unavailable [phone] Reason for Visit * Reason Onset Date Comments Med Refill 01/14/2025 Encounter Details Date Type Department Care Team ([facility] Contact Info) Description 01/14/2025 Telephone [facility] MEDICINE 230 [place], [place] [phone] Name, MD Boo 230 [place] [address] Med Refill Social History Tobacco Use Types [...] 11:19 AM EDT Medication was sent to [facility] today 01/14/25. * Telephone Encounter - Christen Hurtado - 01/14/2025 11:12 AM EDT TC from pt requesting medication refill. Medications needing refill : pregabalin (Lyrica) 150 MG capsule ibuprofen (IBU) 800 MG tablet To be sent to: [facility] documented in this encounter Plan of Treatment Upcoming Encounters Date Type Department Care Team (Late st Contact Info) Description 11/28/2025 9:00 AM EST Office Visit [facility] MEDICINE [address] [place] [address] Name, MD Boo 230 [place] [address] 12/12/2025 10:30 AM EST Telemedicine [facility] MEDICINE [address] [place] [address] Ame Love, RN 12/16/2025 10:15 AM EST Office Visit [facility] CHC ADULT DENTAL [address] [place] [address] Dangelo Pino 01/14/2026 10:30 AM EDT Office Visit [facility] OPTOMETRY [address] [place] [address] Katlyn Vasquez, OD 230 [place] [address] documented as of this encounter Goals Goal [...] documented as of this encounter Care Teams Cardiac Tech Relationship Specialty Start Date End Date Name, [place] [address] PCP - General Family Medicine 04/26/19 Ira Orozco PharmD [address] [place] [address] Pharmacist Internal Medicine 02/03/25 Janessa Fraga 11/23/24 documented as of this encounter
--- OUTSIDE RECORDS SUMMARY | 2025-09-10 14:21 | XMS_ITS | Encounter Summary ---
Author Organization [employer] Address [address] [facility] 7t [place] [address] Care Team Providers Care Cylinder Devalver Name Role Phone Name, Boo FARLEY Primary Care Provider [phone] Ira Orozco PharmD Unavailable [phone] Reason for Visit * Reason Onset Date Comments [place] 12/17/2024 Encounter Details Date Type Department Care Team ([facility] Contact Info) Description 12/17/2024 Telephone [facility] MEDICINE 230 [place], [place] [phone] Name, MD Boo 230 [place] [address] [place] Social History Tobacco Use Types Packs/Day [...] (Lidoderm) 5 % patch Contact pt at [phone] documented in this encounter Plan of Treatment Upcoming Encounters Date Type Department Care Team ([facility] st Contact Info) Description 11/28/2025 9:00 AM EST Office Visit [facility] MEDICINE 230 [place] [address] Name, MD Boo 230 [place] [address] 12/12/2025 10:30 AM EST Telemedicine [facility] MEDICINE 230 [place] [address] Ame Love, RN 12/16/2025 10:15 AM EST Office Visit [facility] CHC ADULT DENTAL [address] [place] [address] Dangelo Pino 01/14/2026 10:30 AM EDT Office Visit [facility] OPTOMETRY [address] [place] [address] Katlyn Vasquez, OD 230 [place] [address] documented as of this encounter Goals Goal [...] documented as of this encounter Care Teams Cylinder Devalver Relationship Specialty Start Date End Date Name, MD Boo 230 [place] [address] PCP - General Family Medicine 04/26/19 Ira Orozco PharmD 230 [place] [address] Pharmacist Internal Medicine 02/03/25 Janessa Fraga 11/23/24 documented as of this encounter
--- OUTSIDE RECORDS SUMMARY | 2025-09-10 14:21 | XMS_ITS | Encounter Summary ---
Author Organization [employer] Address [address] [facility] 7t [place] [address] Care Team Providers Care Chassis Driver Name Role Phone Name, Boo FARLEY Primary Care Provider [phone] Ira Orozco PharmD Unavailable [phone] Reason for Visit * Reason Comments Med Refill Encounter Details Date Type Department Care Team ([facility] Contact Info) Description 01/19/2024 Refill [facility] MEDICINE 230 [place], [place] [phone] Name, MD Boo 230 [place] [address] Lumbar radiculopathy; History of total bilateral knee [...] 9:00 AM EST Office Visit [facility] MEDICINE [address] [place] [address] Name, MD Boo [address] [place] [address] 12/12/2025 10:30 AM EST Telemedicine [facility] MEDICINE [address] [place] [address] Ame Love RN 12/16/2025 10:15 AM EST Office Visit [facility] CHC ADULT DENTAL [address] [place] [address] Dangelo Pino 01/14/2026 10:30 AM EDT Office Visit [facility] OPTOMETRY [address] [place] [address] Katlyn Vasquez, LESLEY 230 [place] [address] documented as of this encounter Goals Goal [...] documented as of this encounter Care Teams Chassis Driver Relationship Specialty Start Date End Date Name, MD Boo 230 [place] [address] PCP - General Family Medicine 04/26/19 Ira Orozco PharmD 230 [place] [address] Pharmacist Internal Medicine 02/03/25 Janessa Fraga 11/23/24 documented as of this encounter
--- OUTSIDE RECORDS SUMMARY | 2025-09-10 14:21 | XMS_ITS | Encounter Summary ---
Author Organization [employer] Address [address] 7t [place] [address] Care Team Providers Care Voice Network Engineer Name Role Phone Name, Boo FARLEY Primary Care Provider [phone] Ira Orozco PharmD Unavailable [phone] Reason for Visit * Reason Onset Date Comments Prior Authorization 07/14/2025 Encounter Details Date Type Department Care Team ([facility] Contact Info) Description 07/14/2025 Telephone [facility] MEDICINE 230 [place], [place] [phone] Name, MD Boo 230 [place] [address] Prior Authorization Social History Tobacco Use Types [...] [facility] MEDICINE [address] [place] [address] Name, MD Boo [address] [place] [address] 12/12/2025 10:30 AM EST Telemedicine [facility] MEDICINE [address] [place] [address] Ame Love RN 12/16/2025 10:15 AM EST Office Visit [facility] CHC ADULT DENTAL [address] [place] [address] Dangelo Pino 01/14/2026 10:30 AM EDT Office Visit [facility] OPTOMETRY [address] [place], [place] [phone] Katlyn Vasquez, LESLEY 230 [place] [address] documented as of this encounter Goals Goal Patient Goal Type Associated Problems Recent Progress Patient-Stated? Author Blood Pressure < 140/90 Blood Pressure 168/68( 025 3:40 PM EST) Moe Mcgee documented as of this encounter Visit Diagnoses Not on filedocumented in this encounter Additional Health Concerns Assessment Noted Time PHQ-9 Depression Total Score: 025 10:47 AM EDT documented as of this encounter Care Teams Voice Network Engineer Relationship Specialty Start Date End Date Name, MD Boo 230 [place] [address] PCP - General Family Medicine 04/26/19 Ira Orozco, Nelida 230 [place] [address] Pharmacist Internal Medicine 02/03/25 Janessa Fraga 11/23/24 documented as of this encounter
--- OUTSIDE RECORDS SUMMARY | 2025-09-10 14:21 | XMS_ITS | Encounter Summary ---
Author Organization [employer] Address [address] [facility] 7t [place] [address] Care Team Providers Care Bridal Service Sales And Management Name Role Phone Name, Boo FARLEY Primary Care Provider [phone] Ira Orozco PharmD Unavailable [phone] Reason for Visit * Reason Comments Med Refill Encounter Details Date Type Department Care Team ([facility] Contact Info) Description 05/17/2023 Refill [facility] MEDICINE 230 [place], [place] [phone] Name, MD Boo 230 [place] [address] Chronic pain syndrome Social History Tobacco Use [...] Description 11/28/2025 9:00 AM EST Office Visit [facility] MEDICINE 230 [place] [address] Name, MD Boo 230 [place] [address] 12/12/2025 10:30 AM EST Telemedicine [facility] MEDICINE 230 [place] [address] Ame Love, RN 12/16/2025 10:15 AM EST Office Visit [facility] CHC ADULT DENTAL [address] [place] [address] Dangelo Pino 01/14/2026 10:30 AM EDT Office Visit [facility] OPTOMETRY [address] [place] [address] Katlyn Vasquez, OD 230 [place] [address] documented as of this encounter Visit Diagnoses Diagnosis Chronic pain syndrome documented in this encounter Additional Health Concerns Assessment Noted Time PHQ-9 Depression Total Score: 6 10/25/20 22 4:10 PM EST documented as of this encounter Care Teams Bridal Service Sales And Management Relationship Specialty Start Date End Date Name, MD Boo [address] [place] [address] PCP - General Family Medicine 04/26/19 Ira Orozco PharmD [address] [place] [address] Pharmacist Internal Medicine 02/03/25 Janessa Fraga 11/23/24 documented as of this encounter
--- OUTSIDE RECORDS SUMMARY | 2025-09-10 14:21 | XMS_ITS | Encounter Summary ---
Author Organization [employer] Address [address] [facility] 7t [place] [address] Care Team Providers Care Cloth Shrinking Tester Name Role Phone Name, Boo FARLEY Primary Care Provider [phone] Ira Orozco PharmD Unavailable [phone] Encounter Details Date Type Department Care Team (Latest Contact Info) Description 03/01/2021 Abstract [facility] CONVERSIONS Dental, Provider, DDS Social History Tobacco [...] 9:00 AM EST Office Visit [facility] MEDICINE 230 [place] [address] Name, MD Boo [address] [place] [address] 12/12/2025 10:30 AM EST Telemedicine [facility] MEDICINE 230 [place] [address] Ame Love, GEM 12/16/2025 10:15 AM EST Office Visit [facility] CHC ADULT DENTAL [address] [place] [address] Dangelo Pino 01/14/2026 10:30 AM EDT Office Visit [facility] OPTOMETRY [address] [place] [address] Katlyn Vasquez, OD 230 [place] [address] documented as of this encounter Visit Diagnoses Not on filedocumented in this encounter Care Teams Cloth Shrinking Tester Relationship Specialty Start Date End Date Name, MD Boo [address] [place] [address] PCP - General Family Medicine 04/26/19 Ira Orozco, Nelida [address] [place] [address] Pharmacist Internal Medicine 02/03/25 Janessa Fraga 11/23/24 documented as of this encounter
--- OUTSIDE RECORDS SUMMARY | 2025-09-10 14:21 | XMS_ITS | Encounter Summary ---
Author Organization [employer] Address 75 [facility] 7t [place] [address] Care Team Providers Care Principal Architectural Firm Name Role Phone Name, Boo FARLEY Primary Care Provider [phone] Ira Orozco PharmD Unavailable [phone] Reason for Visit * Reason Comments Med Refill Encounter Details Date Type Department Care Team ([facility] Contact Info) Description 04/17/2024 Refill [facility] 230 [place], [place] [phone] Name, MD Boo 230 [place], [place] [phone] Chronic pain syndrome Social History Tobacco Use [...] Description 11/28/2025 9:00 AM EST Office Visit [facility] [address] [place] [address] NameBoo MD [address] [place] [address] 12/12/2025 10:30 AM EST Telemedicine [facility] [address] [place] [address] Ame Love, GEM 12/16/2025 10:15 AM EST Office Visit [facility] D[facility] [address] [place] [address] Dangelo Pino 01/14/2026 10:30 AM EDT Office Visit [facility] OPTOMETRY [address] [place] [address] Katlyn Vasquez, OD 230 [place] [address] documented as of this encounter Goals Goal [...] documented as of this encounter Care Teams Principal Architectural Firm Relationship Specialty Start Date End Date Name, MD Boo [address] [place] [address] PCP - General Family Medicine 04/26/19 Ira Orozco, Nelida [address] [place] [address] NEREIDA Balderrama [phone] Pharmacist Internal Medicine 02/03/25 Janessa Fraga 11/23/24 documented as of this encounter
--- OUTSIDE RECORDS SUMMARY | 2025-09-10 14:21 | XMS_ITS | Encounter Summary ---
Author Organization [employer] Address 75 [facility] 7t [place] [address] Care Team Providers Care Force Dispatcher Name Role Phone Name, Boo FARLEY Primary Care Provider [phone] Ira Orozco PharmD Unavailable [phone] Reason for Visit * Reason Comments Med Refill Encounter Details Date Type Department Care Team ([facility] Contact Info) Description 06/07/2023 Refill [facility] [address] [place] [address] [phone] Nazia Curiel FNP Fibromyalgia; Acute pain of [...] Upcoming Encounters Date Type Department Care Team ([facility] Contact Info) Description 11/28/2025 9:00 AM EST Office Visit [facility] 230 [place], [place] [phone] Name, MD Boo [address] [place] [address] 12/12/2025 10:30 AM EST Telemedicine [facility] 230 [place] [address] Ame Love, RN 12/16/2025 10:15 AM EST Office Visit [facility] ADULT D[facility]AL [address] [place] [address] Dangelo Pino 01/14/2026 10:30 AM EDT Office Visit [facility] OPT[facility] [address] [place] [address] Katlyn Vasquez, OD 230 [place] [address] documented as of this encounter Visit Diagnoses Diagnosis Fibromyalgia Unspecified myalgia and myositis Acute pain of right shoulder documented in this encounter Additional Health Concerns Assessment Noted Time PHQ-9 Depression Total Score: 6 10/25/20 22 4:10 PM EST documented as of this encounter Care Teams Force Dispatcher Relationship Specialty Start Date End Date Name, MD Boo 230 [place] [address] PCP - General Family Medicine 04/26/19 Ira Orozco PharmD 230 [place] [address] Pharmacist Internal Medicine 02/03/25 Janessa Fraga 11/23/24 documented as of this encounter
--- OUTSIDE RECORDS SUMMARY | 2025-09-10 14:21 | XMS_ITS | Encounter Summary ---
Author Organization [employer] Address 75 [facility] 7t [place] [address] Care Team Providers Care Edge Glue Machine Tender Name Role Phone Name, Boo FARLEY Primary Care Provider [phone] Ira Orozco PharmD Unavailable [phone] Encounter Details Date Type Department Care Team ([facility] Contact Info) Description 10/21/2022 Orders Only [address] [address] Lizzie Coburn RN Social History Tobacco Use [...] Description 11/28/2025 9:00 AM EST Office Visit [address] [address] Name, MD Boo [address] [place] [address] 12/12/2025 10:30 AM EST Telemedicine [address] [address] Ame Love, GEM 12/16/2025 10:15 AM EST Office Visit [facility] ADULT DENTAL [address] [place] [address] MatyMario chauhanard 01/14/2026 10:30 AM EDT Office Visit [facility] OPTOMETRY [address] [place] [address] Katlyn Vasquez, OD [address] [place] [address] documented as of this encounter Procedures Procedure [...] EDT) Vitamin D, 25-OH, D2 <4 ng/mL [facility] Comment:This test was develo ped and its analytical performancecharacteristics have been determined by [employer] [place], [place]. It hasnot been cleared or approved by the U.S. Food and DrugAdministration. This assay has been validated pursuantto the CLIA regulations and is used for clinicalpurposes.THIS TEST WAS PERFORMED AT:[email or web address] [place] [address]MBEYRGFCUONG DE LEON MD,PHD Vitamin D, 25-OH, D3 29 ng/mL [facility] Comment:This test was develo ped and its analytical performancecharacteristics have been determined by [facility] [place], [place]. It hasnot been cleared or approved by the U.S. Food and DrugAdministration. This assay has been validated pursuantto the CLIA regulations and is used for clinicalpurposes. Vitamin D, 25-OH, Total 29(A) 30 - 100 ng/mL [facility] Comment: Vitamin D, 25-Hydroxy reports concentrations [...] Clin EndocrinolMetab. 2011;96(7):1911-30.For additional information, please refer tohttp://education.import2/faq/UMU856(This link is being provided for informational/educational purposes only.) 02/01/2023 10:4 1 AM EDT 02/01/2023 10:41 AM EDT us [facility] External Provider LAB BLO OD ORDERABLES Final Result [facility] [address] [place] [phone] * TSH W/Reflex to FT4 (02/01/2023 10:41 AM EDT) TSH reflex Free T4 0.49 0.32 - 4.0 uIU/mL [facility] 02/01/2023 10:4 1 AM EDT 02/01/2023 10:41 AM EDT [facility] External Provider LAB BLO OD ORDERABLES Final Result Performing Organization Address City/[facility]/ZIP Co de Phone Number [facility] [address] [place] [address] [phone] * Vitamin B12/Folate, Serum Panel (02/01/2023 10:41 AM EDT) Vitamin B12 697 200 - 900 pg/mL [facility] Comment:NORMAL 200-900 PG/ML INDETERMINATE 160-199 PG/ML DEFICIENT < 160 PG/ML Folate 16.9 > or = 4.0 ng/mL [facility] Comment:Reference Values:> o r = 4.0 ng/mL< 4.0 ng/mL suggests folate deficiency Methotrexate, aminopterin and folinic acid(leucovorin) are chemotherapeutic agents whose molecularstructures are similar to folate; therefore, the Architectfolate assay cannot be used for patients using these drugs. 02/01/2023 10:4 1 AM EDT 02/01/2023 10:41 AM EDT [facility] External Provider LAB BLO OD ORDERABLES Final Result Performing Organization Address [facility] Co de Phone Number [facility] [address] [place] [address] [phone] * Lipase (02/01/2023 10:41 AM EDT) Lipase 21 8 - 78 U/L [facility] 02/01/2023 10:4 1 AM EDT 02/01/2023 10:41 AM EDT [facility] External Provider LAB BLO OD ORDERABLES Final Result Performing Organization Address [facility]/ZIP Co de Phone Number [facility] [address] [place] [address] [phone] * (ABNORMAL) Comprehensive Metabolic Panel (02/01/2023 10:41 AM EDT) Sodium 143 135 - 145 mmol/L [facility] Potassium 4.2 3.3 - 5.1 mmol/L [facility] Chloride 108 96 - 108 mmol/L [facility] Carbon Dioxide 25 22 - 29 mmol/L [facility] Anion Gap 14 12 - 20 [facility] Urea Nitrogen (BUN) 19(H) 9 - 16 mg/dL [facility] Creatinine, Serum 0.73 0.5 - 1.4 mg/dL [facility] Estimated Glomerular Filt Rate >60 [facility] Comment:NOTE: For -Am erican individuals, multiply the result by 1.210.Chronic Kidney Disease: Estimated GFR < 60 mL/min/1.22v0Lgybkm Kidney Disease: Estimated GFR < 15 mL/min/1.73m2 Glucose 113 60 - 115 mg/dL [facility] Calcium 9.6 8.4 - 10.2 mg/dL [facility] Bilirubin, Total 0.5 0.0 - 1.0 mg/dL [facility] Aspartate Amino Transferase 29 5 - 31 U/L [facility] Alanine Aminotransferase 54(H) 0 - 31 U/L [facility] Total Protein 7.1 6.5 - 8.0 g/dL [facility] Albumin Level 4.6 3.5 - 5.0 g/dL [facility] Alkaline Phosphatase 73 39 - 117 U/L [facility] 02/01/2023 10:4 1 AM EDT 02/01/2023 10:41 AM EDT us [facility] External Provider LAB BLO OD ORDERABLES Final Result [facility] [address] [place] [address] [phone] documented in this encounter Visit Diagnoses Not on filedocumented in this encounter Care Teams Edge Glue Machine Tender Relationship Specialty Start Date End Date Name, MD Boo 230 [place] [address] PCP - General Family Medicine 04/26/19 Ira Orozco PharmD 230 [place] [address] Pharmacist Internal Medicine 02/03/25 Janessa Fraga 11/23/24 documented as of this encounter
--- OUTSIDE RECORDS SUMMARY | 2025-09-10 14:21 | XMS_ITS | Encounter Summary ---
Author Organization [employer] Address [address] [facility] [address]t [place] [address] Care Team Providers Care Technical Stenographer Name Role Phone Name, Boo FARLEY Primary Care Provider Ira Orozco PharmD Unavailable [phone] Encounter Details Date Type Department Care Team ([facility] Contact Info) Description 01/17/2025 Telephone [facility] 230 [place], [place] [phone] Name, MD Boo [address] [place] [address] Social History Tobacco Use Types Packs/Day Years [...] EST Office Visit [facility] [address] [place] [address] Name, MD Boo [address] [place] [address] 12/12/2025 10:30 AM EST Telemedicine [facility] [address] [place] [address] Ame Love, RN 12/16/2025 10:15 AM EST Office Visit [facility]ULT [facility] [address] [place] [address] Dangelo Pino 01/14/2026 10:30 AM EDT Office Visit [facility] OPT[facility] [address] [place] [address] Katlyn Vasquez, LESLEY 230 [place] [address] documented as of this encounter Goals Goal [...] as of this encounter Care Teams Technical Stenographer Relationship Specialty Start Date End Date Name, MD Boo [address] [place] [address] PCP - General Family Medicine 04/26/19 Ira Orozco PharmD 230 [place] [address] Pharmacist Internal Medicine 02/03/25 Janessa Fraga 11/23/24 documented as of this encounter
--- OUTSIDE RECORDS SUMMARY | 2025-09-10 14:21 | XMS_ITS | Encounter Summary ---
Author Organization [employer] Address 75 [facility] 7t [place] [address] Care Team Providers Care Senior Specialist Name Role Phone Name, Boo FARLEY Primary Care Provider [phone] Ira Orozco PharmD Unavailable [phone] Encounter Details Date Type Department Care Team (Latest Contact Info) Description 01/01/2020 Abstract [facility] CONVERSIONS Dental, Provider, DDS Social History Tobacco [...] 9:00 AM EST Office Visit [facility] MEDICINE [address] [place] [address] Name, MD Boo 230 [place] [address] 12/12/2025 10:30 AM EST Telemedicine [facility] MEDICINE [address] [place] [address] Ame Love, GEM 12/16/2025 10:15 AM EST Office Visit [facility] CHC ADULT DENTAL [address] [place] [address] Dangelo Pino 01/14/2026 10:30 AM EDT Office Visit [facility] OPTOMETRY [address] [place] [address] Katlyn Vasquez, OD 230 [place] [address] documented as of this encounter Visit Diagnoses Not on filedocumented in this encounter Care Teams Senior Specialist Relationship Specialty Start Date End Date Name, MD Boo 230 [place] [address] PCP - General Family Medicine 04/26/19 Ira Orozco, LesleyD 230 [place] [address] Pharmacist Internal Medicine 02/03/25 Janessa Fraga 11/23/24 documented as of this encounter
--- OUTSIDE RECORDS SUMMARY | 2025-09-10 14:21 | XMS_ITS | Encounter Summary ---
Author Organization [employer] Address 75 [facility] 7t [place] [address] Care Team Providers Care Mixer Wet Pour Name Role Phone Name, Boo FARLEY Primary Care Provider [phone] Ira Orozco PharmD Unavailable [phone] Reason for Visit * Reason Onset Date Comments FYI 11/19/2024 Encounter Details Date Type Department Care Team ([facility] Contact Info) Description 11/19/2024 Telephone [facility] 230 [place], [place] [phone] Name, MD Boo 230 [place] [address] FY Social History Tobacco Use Types Packs/Day [...] Caring , notifying patient will be getting senior living services starting today 11/19/2024 . If any questions please contact Christine [phone] documented in this encounter Plan of Treatment Upcoming Encounters Date Type Department Care Team (Late st Contact Info) Description 11/28/2025 9:00 AM EST Office Visit [facility] MED[facility] [address] [place] [address] Name, MD Boo 230 [place] [address] 12/12/2025 10:30 AM EST Telemedicine [facility] 230 [place] [address] Ame Love, RN 12/16/2025 10:15 AM EST Office Visit [facility] ADULT DENTAL [address] [place] [address] Dangelo Pino 01/14/2026 10:30 AM EDT Office Visit [facility] OPTOMETRY [address] [place] [address] PedroTravis santosn, OD 230 [place] [address] documented as of this encounter Goals Goal [...] documented as of this encounter Care Teams Mixer Wet Pour Relationship Specialty Start Date End Date Name, MD Boo 230 [place] [address] PCP - General Family Medicine 04/26/19 Ira Orozco PharmD 230 [place] [address] Pharmacist Internal Medicine 02/03/25 Janessa Fraga 11/23/24 documented as of this encounter
--- OUTSIDE RECORDS SUMMARY | 2025-09-10 14:21 | XMS_ITS | Encounter Summary ---
Author Organization [employer] Address 75 [facility] 7t [place] [address] Care Team Providers Care Incident Response Engineer Name Role Phone Name, Boo FARLEY Primary Care Provider [phone] Ira Orozco PharmD Unavailable [phone] Reason for Visit * Reason Onset Date Comments Request For Order(s) 01/03/2024 Encounter Details Date Type Department Care Team ([facility] Contact Info) Description 01/03/2024 Telephone [facility] 230 [place] [address] Name, MD Boo 230 [place] [address] Request For Order(s) Social History Tobacco Use [...] triaged today (01/03). Please contact pt at [phone] documented in this encounter Plan of Treatment Upcoming Encounters Date Type Department Care Team (Late st Contact Info) Description 11/28/2025 9:00 AM EST Office Visit [address] [address] Name, MD Boo [address] [place] [address] 12/12/2025 10:30 AM EST Telemedicine [address] [address] Ame Love RN 12/16/2025 10:15 AM EST Office Visit [facility] CH[facility] ADULT DENTAL [address] [place] [address] Dangelo Pino 01/14/2026 10:30 AM EDT Office Visit [facility] OPT[facility] [address] [place] [address] Katlyn Vasquez, OD 230 [place] [address] documented as of this encounter Goals Goal [...] documented as of this encounter Care Teams Incident Response Engineer Relationship Specialty Start Date End Date Name, MD Boo 230 [place] [address] PCP - General Family Medicine 04/26/19 Ira Orozco, LesleyD [address] [place] [address] Pharmacist Internal Medicine 02/03/25 Janessa Fraga 11/23/24 documented as of this encounter
--- OUTSIDE RECORDS SUMMARY | 2025-09-10 14:21 | XMS_ITS | Encounter Summary ---
Author Organization [employer] Address [address] 7t [place] [address] Care Team Providers Care [employer] Cross Executive Director Name Role Phone Name, Boo FARLEY Primary Care Provider [phone] Ira Orozco PharmD Unavailable [phone] Reason for Visit * Reason Onset Date Comments Nurse Triage 04/10/2024 Encounter Details Date Type Department Care Team ([facility] Contact Info) Description 04/10/2024 Telephone [facility] MEDICINE 230 [place], [place] [phone] Name, MD Boo 230 [place] [address] Nurse Triage Social History Tobacco Use Types [...] Description 11/28/2025 9:00 AM EST Office Visit [facility] MEDICINE 230 [place] [address] Name, MD Boo [address] [place] [address] 12/12/2025 10:30 AM EST Telemedicine [facility] MEDICINE 230 [place] [address] Ame Love, GEM 12/16/2025 10:15 AM EST Office Visit [facility] CHC ADULT DENTAL [address] [place] [address] Dangelo Pino 01/14/2026 10:30 AM EDT Office Visit [facility] OPTOMETRY [address] [place] [address] Katlyn Vasquez, OD 230 [place] [address] documented as of this encounter Goals Goal [...] documented as of this encounter Care Teams Red Cross Executive Director Relationship Specialty Start Date End Date Name, MD Boo 230 [place] [address] PCP - General Family Medicine 04/26/19 Ira Orozco PharmD 230 [place] [address] Pharmacist Internal Medicine 02/03/25 Janessa Fraga 11/23/24 documented as of this encounter
--- OUTSIDE RECORDS SUMMARY | 2025-09-10 14:21 | XMS_ITS | Encounter Summary ---
Author Organization [employer] Address 75 [facility] 7t [place] [address] Care Team Providers Care Epic Cadence Specialists Name Role Phone Name, Boo FARLEY Primary Care Provider [phone] Ira Orozco PharmD Unavailable Encounter Details Date Type Department Care Team (Late st Contact Info) Description 09/19/2022 [facility] [employer] [address] [place] [address] NameBoo MD [address] [place] [address] Social History Tobacco Use Types Packs/Day Years [...] Office Visit [facility] MEDICINE [address] [place] [address] [phone] Name, MD Boo [address] [place] [address] [phone] 12/12/2025 10:30 AM EST Telemedicine [facility] MEDICINE [address] [place] [address] [phone] Ame Love RN 12/16/2025 10:15 AM EST Office Visit [facility] CHC ADULT DENTAL 505 [place] [address] Dangelo Pino 01/14/2026 10:30 AM EDT Office Visit [facility] OPTOMETRY [address] [place], [place] [phone] Katlyn Vasquez, OD 230 [place] [address] documented as of this encounter Visit Diagnoses Not on filedocumented in this encounter Care Teams Epic Cadence Specialists Relationship Specialty Start Date End Date Name, MD Boo 230 [place], [place] [phone] PCP - General Family Medicine 04/26/19 Ira Orozco PharmD [address] [place] [address] Pharmacist Internal Medicine 02/03/25 Janessa Fraga 11/23/24 documented as of this encounter
--- OUTSIDE RECORDS SUMMARY | 2025-09-10 14:21 | XMS_ITS | Encounter Summary ---
Author Organization [employer] Address [address] [facility] [address] [place] [address] Care Team Providers Care Embedded Software Development Engineer Name Role Phone Name, Boo FARLEY Primary Care Provider [phone] Ira Orozco PharmD Unavailable [phone] Encounter Details Date Type Department Care Team ([facility] Contact Info) Description 01/22/2024 Orders Only [facility] MED[facility]INE 230 [place], [place] [phone] Bel Moreno MD 230 [place] [address] Social History Tobacco Use Types Packs/Day Years [...] EST Office Visit [facility] MED[facility]INE [address] [place] [address] NameBoo MD [address] [place] [address] 12/12/2025 10:30 AM EST Telemedicine [facility] [address] [place] [address] Ame Love, GEM 12/16/2025 10:15 AM EST Office Visit [facility] CH[facility] ADULT DENTAL [address] [place] [address] Dangelo Pino 01/14/2026 10:30 AM EDT Office Visit [facility] OPTOMETRY [address] [place] [address] Pedro, Katlyn, OD 230 [place] [address] documented as of this encounter Goals Goal [...] documented as of this encounter Care Teams Embedded Software Development Engineer Relationship Specialty Start Date End Date NameBoo MD [address] [place] [address] PCP - General Family Medicine 04/26/19 Ira Orozco, LesleyD [address] [place] [address] Pharmacist Internal Medicine 02/03/25 Janessa Fraga 11/23/24 documented as of this encounter
--- OUTSIDE RECORDS SUMMARY | 2025-09-10 14:22 | XMS_ITS | Encounter Summary ---
Author Organization [employer] Address [address] [facility] [address] 7t [place] [address] Care Team Providers Care Endoscopy Rn Name Role Phone Name, Boo FARLEY Primary Care Provider [phone] Ira Orozco PharmD Unavailable [phone] Reason for Visit * Reason Onset Date Comments Med Refill 08/19/2025 Encounter Details Date Type Department Care Team ([facility] Contact Info) Description 08/19/[address] [facility] MEDICINE 230 [place], [place] [phone] Name, MD Boo [address] [place] [address] Med Refill Social History Tobacco Use Types [...] 24 hr capsule To be sent to: -[id number] - [place]ERE[place] YEUNG - [address] [facility] documented in this encounter Plan of Treatment Upcoming Encounters Date Type Department Care Team ([facility] st Contact Info) Description 11/28/2025 9:00 AM EST Office Visit [facility] 230 [place] [address] Name, MD Boo 230 [facility] [place] [address] 12/12/2025 10:[address] [facility] 230 [place] [address] Ame Love, RN 12/16/2025 10:15 AM EST Office Visit [facility] ADULT DENTAL [address] [place] [address] Dangelo Pino 01/14/2026 10:30 AM EDT Office Visit [facility] OPTOMETRY [address] [place] [address] Katlyn Vasquez, OD 230 [place] [address] documented as of this encounter Goals Goal [...] documented as of this encounter Care Teams Endoscopy Rn Relationship Specialty Start Date End Date Name, MD Boo 230 [place] [address] PCP - General Family Medicine 04/26/19 Ira Orozco PharmD [address] [place] [address] Pharmacist Internal Medicine 02/03/25 Janessa Fraga 11/23/24 documented as of this encounter
--- OUTSIDE RECORDS SUMMARY | 2025-09-10 14:22 | XMS_ITS | Encounter Summary ---
Author Organization [employer] Address [address] [facility] [address] [place] [address] Care Team Providers Care Doctor Of Nursing Practice Name Role Phone Name, Boo FARLEY Primary Care Provider [phone] Ira Orozco PharmD Unavailable [phone] Reason for Visit * Reason Onset Date Comments Med Refill 07/14/2025 Encounter Details Date Type Department Care Team ([facility] Contact Info) Description 07/14/2025 Telephone [facility] MEDICINE [address] [place], [place] [phone] Name, MD Boo [address] [place] [address] Med Refill Social History Tobacco Use Types [...] pended to PCP. * Telephone Encounter - iDego Lozano - 07/14/2025 10:17 AM EDT TC from pt requesting medication refill. Medications needing refill : ibuprofen 800 MG tablet To be sent to: [id number] - [address] documented in this encounter Plan of Treatment Upcoming Encounters Date Type Department Care Team ([facility] st Contact Info) Description 11/28/2025 9:00 AM EST Office Visit [facility] MEDICINE [address] [place] [address] Name, MD Boo [address] [place] [address] 12/12/2025 10:30 AM EST Telemedicine [facility] MEDICINE [address] [place] [address] Ame Love, RN 12/16/2025 10:15 AM EST Office Visit [facility] CHC ADULT DENTAL [address] [place] [address] Dangelo Pino 01/14/2026 10:30 AM EDT Office Visit [facility] OPTOMETRY [address] [place] [address] PedroTravisn, OD [address] [place] [address] documented as of this encounter Goals Goal [...] documented as of this encounter Care Teams Doctor Of Nursing Practice Relationship Specialty Start Date End Date Name, MD Boo [address] [place] [address] PCP - General Family Medicine 04/26/19 Ira Orozco PharmD [address] [place] [address] Pharmacist Internal Medicine 02/03/25 Janessa Fraga 11/23/24 documented as of this encounter
--- OUTSIDE RECORDS SUMMARY | 2025-09-10 14:22 | XMS_ITS | Encounter Summary ---
Author Organization [employer] Address [address] [facility] 7t [place] [address] Care Team Providers Care Clinical Informatics Manager Name Role Phone Name, Boo FARLEY Primary Care Provider [phone] Ira Orozco PharmD Unavailable [phone] Reason for Visit * Reason Comments Med Refill Encounter Details Date Type Department Care Team ([facility] Contact Info) Description 06/04/2025 Refill [facility] MEDICINE [address] [place], [place] [phone] Name, MD Boo [address] [place], [place] [phone] Social History Tobacco Use Types Packs/Day Years [...] Description 11/28/2025 9:00 AM EST Office Visit [facility] MEDICINE [address] [place] [address] Name, MD Boo [address] [place] [address] 12/12/2025 10:30 AM EST Telemedicine [facility] MEDICINE [address] [place] [address] Ame Love, GEM 12/16/2025 10:15 AM EST Office Visit [facility] CHC ADULT DENTAL [address] [place] [address] Dangelo Pino 01/14/2026 10:30 AM EDT Office Visit [facility] OPTOMETRY [address] [place] [address] Katlyn Vasquez, OD [address] [place] [address] documented as of this encounter Goals Goal [...] documented as of this encounter Care Teams Clinical Informatics Manager Relationship Specialty Start Date End Date Name, MD Boo [address] [place] [address] PCP - General Family Medicine 04/26/19 Ira Orozco PharmD [address] [place] [address] Pharmacist Internal Medicine 02/03/25 Janessa Fraga 11/23/24 documented as of this encounter
--- OUTSIDE RECORDS SUMMARY | 2025-09-10 14:22 | XMS_ITS | Encounter Summary ---
Author Organization [employer] Address [address] [facility] [address]t [place] [address] Care Team Providers Care Law Firm Partner Name Role Phone Name, Boo FARLEY Primary Care Provider [phone] Ira Orozco PharmD Unavailable [phone] Reason for Visit * Reason Comments Med Refill Encounter Details Date Type Department Care Team ([facility] Contact Info) Description 08/05/2025 Refill [facility] MEDICINE [address] [place], [place] [phone] Name, MD Boo [address] [place], [place] [phone] Social History Tobacco Use Types Packs/Day Years [...] 9:00 AM EST Office Visit [facility] MEDICINE [address] [place] [address] Name, MD Boo [address] [place] [address] 12/12/2025 10:30 AM EST Telemedicine [facility] MEDICINE [address] [place] [address] Ame Love, GEM 12/16/2025 10:15 AM EST Office Visit [facility] CHC ADULT DENTAL [address] [place] [address] Dangelo Pino 01/14/2026 10:30 AM EDT Office Visit [facility] OPTOMETRY [address] [place] [address] Katlyn Vasquez, OD [address] [place] [address] documented as of this encounter Goals Goal [...] documented as of this encounter Care Teams Law Firm Partner Relationship Specialty Start Date End Date Name, MD Boo [address] [place] [address] PCP - General Family Medicine 04/26/19 Ira Orozco PharmD [address] [place] [address] Pharmacist Internal Medicine 02/03/25 Janessa Fraga 11/23/24 documented as of this encounter
--- OUTSIDE RECORDS SUMMARY | 2025-09-10 14:22 | XMS_ITS | Encounter Summary ---
Author Organization [employer] Address [address] [facility] [address] [place] [address] Care Team Providers Care Enterprise Data Architect Name Role Phone Name, Boo FARLEY Primary Care Provider [phone] Ira Orozco PharmD Unavailable [phone] Reason for Visit * Reason Onset Date Comments Medication Question 03/17/2025 FYI 03/17/2025 Encounter Details Date Type Department Care Team ([facility] Contact Info) Description 03/17/2025 Telephone [facility] MEDICINE [address] [place], [place] [phone] Name, MD Boo [address] [place] [address] Medication Question; Social History Tobacco Use Types [...] Description 11/28/2025 9:00 AM EST Office Visit [facility] MEDICINE [address] [place] [address] Boo Hastings MD [address] [place] [address] 12/12/2025 10:30 AM EST Telemedicine [facility] MEDICINE [address] [place] [address] Ame Love, RN 12/16/2025 10:15 AM EST Office Visit [facility] CHC ADULT DENTAL [address] [place] [address] Dangelo Pino 01/14/2026 10:30 AM EDT Office Visit [facility] OPTOMETRY [address] [place] [address] Katlyn Vasquez, OD [address] [place] [address] documented as of this encounter Goals Goal [...] documented as of this encounter Care Teams Enterprise Data Architect Relationship Specialty Start Date End Date Boo Hastings MD [address] [place] [address] PCP - General Family Medicine 04/26/19 Ira Orozco PharmD [address] [place] [address] Pharmacist Internal Medicine 02/03/25 Janessa Fraga 11/23/24 documented as of this encounter
[2025-09-10 14:23] LABS: Appearance Urine Clear; Glucose Urine UA Negative (Negative); PH 6.0 (5.0-9.0); Specific Gravity - Urine 1.015 (1.005-1.025)
== END 2025-09-10 11:39 | disposition home or self-care (01) ==
LOC: HO.CHCLDS 11:38
PROVIDERS: PCP Internal Medicine Geriatric Medicine; Visit Provider Internal Medicine Geriatric Medicine
DX: Z13.89 Encounter for screening for other disorder (principal)
CPT/HCPCS: 81001